=== PATIENT | male | born 1955 | race American Indian/Alaskan Native ===

== ENCOUNTER 2021-03-26 18:59 | Emergency (ER) | payer SELFPAY ==
[2021-03-26 20:33] VITALS: BP 173/97
[2021-03-26] MEDS ORDERED: ACETAMINOPHEN 500 MG TAB PO ONE (21:13)
--- NOTE | 2021-03-26 21:13 | Emergency Department Report ---
ED Fever HPI - General Chief Complaint: Fever Stated Complaint: BODY ACHES/COUGH - History of Present Illness Initial Comments: Patient presents secondary to cough and fever with trouble breathing. Symptoms started over the last couple of days and progressively worsened. He and his both been sick. She states that she seemed to get better faster. He is still sick. They are concerned that he could have coronavirus. He was vaccinated. They have no known exposure to coronavirus. Patient states that he has muscle aches and body aches. He just feels weak all over. He has not been traveling lately. Cough has been producing a yellowish phlegm. There is no hemoptysis. He has tried kedh-qqb-[id number] medication without symptomatic improvement. ED Review of Systems ROS: Stated complaint: BODY ACHES/COUGH Other details as noted in HPI Comment: All other systems reviewed and negative Constitutional: see HPI Eyes: denies: eye pain ENT: denies: ear pain Respiratory: see HPI, cough Cardiovascular: denies: chest pain Endocrine: denies: unexplained weight loss Gastrointestinal: denies: hematemesis, melena Genitourinary: denies: dysuria Musculoskeletal: denies: back pain Skin: denies: rash Neurological: denies: headache Hematological/Lymphatic: denies: easy bruising ED Past Medical Hx - Past Medical History Previous Medical History?: Yes Hx Hypertension: Yes Hx Congestive Heart Failure: Yes - Surgical History Past Surgical History?: Yes Additional Surgical History: heart cath but no stents placed. - Family History Family history: hypertension - Medications Home Medications: Home Medications Medication Instructions Recorded Confirmed Last Taken Type Albuterol Sulfate [Proventil Hfa] 6.7 gm IH 4XD #1 hfa.aer.ad 03/26/21 Unknown Rx Benzonatate [Tessalon Perles] 100 mg PO Q8HR #20 capsule 03/26/21 Unknown Rx ED Physical Exam - General Limitations: No Limitations, Other (Pulse ox is noted to be low. He is hypoxic. This improves with deep breath.) General appearance: alert, in no apparent distress - Head Head exam: Present: atraumatic, normocephalic, normal inspection - Eye Eye exam: Present: normal appearance, EOMI. Absent: scleral icterus - ENT ENT exam: Present: normal exam, normal orophraynx, mucous membranes moist - Neck Neck exam: Present: normal inspection. Absent: meningismus - Respiratory Respiratory exam: Present: wheezes (Bilateral). Absent: respiratory distress - Cardiovascular Cardiovascular Exam: Present: regular rate, normal rhythm - GI/Abdominal GI/Abdominal exam: Present: soft. Absent: tenderness, guarding - Extremities Exam Extremities exam: Present: normal capillary refill. Absent: pedal edema - Back Exam Back exam: Absent: CVA tenderness (R), CVA tenderness (L) - Neurological Exam Neurological exam: Present: alert, oriented X3. Absent: motor sensory deficit - Psychiatric Psychiatric exam: Present: normal affect, normal mood - Skin Skin exam: Present: warm, dry ED Course Vital Signs 03/26/21 20:32 Temperature 101.3 F H Pulse Rate 104 H Respiratory 14 Rate Blood Pressure 173/97 O2 Sat by Pulse 92 Oximetry - Reevaluation(s) Reevaluation #1: 03/26/21 21:13 Chest x-ray was ordered. Tylenol was ordered. Reevaluation #2: 03/26/21 21:50 X-ray was reviewed. There is no evidence of lobar pneumonia. There is no pneumothorax. Patient was discharged. ED Medical Decision Making - Radiology Data Radiology results: image reviewed - Medical Decision Making Patient presents with respiratory symptoms. This is in the setting of coronavirus. He was however vaccinated. Radiographically, there is no evidence of lobar pneumonia. He does not have a pneumothorax. There is no evidence of congestive heart failure. Patient very well could have coronavirus. This is been discussed. He would benefit from outpatient testing. There is no testing required immediately. He was feeling better after the nebulizer. Is not hypoxic. He was discharged with inhalers and outpatient follow-up. There is no indication for antibiotic therapy at this time. Critical Care Time: No Critical care attestation.: If time is entered above; I have spent that time in minutes in the direct care of this critically ill patient, excluding procedure time. ED Disposition Clinical Impression: Acute URI, Myalgia Disposition: HOME / SELF CARE / HOMELESS Is pt being admited?: No Does the pt Need Aspirin: No Condition: Stable Instructions: Viral Respiratory Infection, Zubs-Oi-Sova, Musculoskeletal Pain Additional Instructions: Drink plenty water. Continue to use Tylenol and ibuprofen for fever and pain. Return for problems. Use the inhaler at home. Follow-up with your regular physician for recheck. Isolated home. Consider outpatient Covid testing. Prescriptions: Albuterol Sulfate [Proventil Hfa] 6.7 gm IH 4XD #1 hfa.aer.ad Benzonatate [Tessalon Perles] 100 mg PO Q8HR #20 capsule Referrals: PRIMARY CARE, [Referring] - 3-5 Days DI KUHN MD [Staff Physician] - 3-5 Days
--- NOTE | 2021-03-26 22:42 | XRay Report ---
CHEST 2 VIEWS INDICATION / CLINICAL INFORMATION: wheezing. COMPARISON: None available. FINDINGS: SUPPORT DEVICES: None. HEART / MEDIASTINUM: Mild cardiomegaly. LUNGS / PLEURA: Mild bilateral interstitial opacities and peribronchial thickening. No pneumothorax. ADDITIONAL FINDINGS: No significant additional findings. IMPRESSION: 1. Bilateral peribronchial thickening and increased interstitial opacities can be seen with small air ways disease and/or viral infection. 2. Mild cardiomegaly. Signer Name: Jesus Mora MD Signed: 03/26/2021 10:37 PM Workstation Name: [id number]
[2021-03-26] MEDS ORDERED: ALBUTEROL 2.5 MG/3 ML NEBU IH ONE (23:46)
[2021-03-27] MEDS ORDERED: ACETAMINOPHEN 500 MG TAB PO ONE (00:24)
== END 2021-03-27 00:42 | disposition home or self-care (01) ==
LOC: ED 18:59
DX: J06.9 Acute upper respiratory infection, unspecified (principal); M79.10 Myalgia, unspecified site; I11.0 Hypertensive heart disease with heart failure; Z98.890 Other specified postprocedural states
CPT/HCPCS: 71046; 94640; 99283

== ENCOUNTER 2021-03-28 07:05 | Inpatient (IN) | payer MEDICARE ==
--- NOTE | 2021-03-28 07:30 | Emergency Department Report ---
Blank Doc - Documentation Documentation: 66-year-old male that presents with weakness, near syncope and shortness of br eath. Tachycardic, hypotensive and hypoxic on room air at 80%. 1- This is a initial triage assessment/medical screening only. Full assessment and work-up will be completed once the patient is in proper hospital gown, ED bed and in a private room setting. This initial assessment/diagnostic orders/clinical plan/ treatment(s) is/are subject to change based on pt's health status, clinical progression and re-assessment by fellow clinical providers in the ED. Further treatment and workup at subsequent clinical providers discretion. Patient/guardians urged not to elope from ED as their condition may be serious if not clinically assessed and managed. 2-bakery sales clerk notified to have the patient brought back JADON 3-cardiac/sepsis protocol The patient was evaluated in the emergency department for symptoms described in the history of present illness. He/she was evaluated in the context of the global COVID-19 pandemic, which necessitated consideration that the patient might be at risk for infection with the virus that causes COVID-19. Institutional protocols and algorithms that pertain to the evaluation of patients at risk for COVID-19 are in a state of rapid change based on information released by regulatory bodies including the CDC and federal and state organizations. These policies and algorithms were followed during the patient's care in the emergency department. Please note that these policies, procedures and recommendations changed on a rapid basis.
[2021-03-28 08:24] LABS: Basophils % (Auto) 0.2 % (0.0-1.8); Hematocrit 39.2 % (35.5-45.6); Hemoglobin 13.5 gm/dl (11.8-15.2); Lymphocytes # (Auto) 0.5 K/mm3 (1.2-5.4); Lymphocytes % (Auto) 7.2 % (13.4-35.0); Mean Corpuscular HGB Conc 34 % (32-34); Mean Corpuscular Volume 89 fl (84-94); Monocytes # (Auto) 0.7 K/mm3 (0.0-0.8); Monocytes % (Auto) 10.8 % (0.0-7.3); Red Cell Distribution Width 15.1 % (13.2-15.2)
[2021-03-28 08:40] LABS: Platelet Count 96 K/mm3 (140-440)
--- NOTE | 2021-03-28 08:43 | XRay Report ---
CHEST 1 VIEW INDICATION: hypoxia, sob. COMPARISON: 03/26/2021 FINDINGS: Support devices: None. Heart: Stable borderline to mild cardiomegaly Lungs/Pleura: Stable mild perihilar prominence. No consolidation, pleural effusion or pneumothorax. Additional findings: None. IMPRESSION: No significant interval change. Signer Name: Bimal Devries Jr, MD Signed: 03/28/2021 8:38 AM Workstation Name: [id number]
[2021-03-28 08:44] LABS: Alanine Aminotransferase 32 units/L (7-56); Albumin 3.4 g/dL (3.9-5); BUN/Creatinine Ratio 11; Blood Urea Nitrogen 10 mg/dL (9-20); Calcium 9.2 mg/dL (8.4-10.2); Hemolysis Index 5
[2021-03-28] MEDS ORDERED: SODIUM CHLORIDE 0.9% 1000 ML IV SOLN IV ONE (08:45)
[2021-03-28] MEDS ORDERED: AZITHROMYCIN/NS 500 MG/250 ML 500 MG/250 ML BAG IV ONE (08:46)
[2021-03-28] MEDS ORDERED: cefTRIAXone/NS 2 GM/100 ML 2 GM/100 ML BAG IV ONE (08:46)
[2021-03-28] MEDS ORDERED: dexAMETHasone 4 MG/ML VIAL IV ONE (08:47)
[2021-03-28 08:48] LABS: INR 0.95 (0.87-1.13)
[2021-03-28] MEDS ORDERED: ACETAMINOPHEN 325 MG TAB PO ONE (08:48)
[2021-03-28 08:49] LABS: Partial Thromboplastin Time 38.7 Sec. (24.2-36.6)
--- NOTE | 2021-03-28 08:50 | Emergency Department Report ---
ED Fever HPI - General Chief Complaint: Weakness Stated Complaint: COUGH WEAK THIRSTY LACK OF SLEEP FEVER Time Seen by Provider: 03/28/21 07:25 Source: patient Exam Limitations: no limitations - History of Present Illness Initial Comments: 66-year-old male with a past medical history hypertension and CHF presents to the hospital complaining of progressing worsening respiratory symptoms as well as generalized weakness and near syncopal episodes since discharge from the ED 2 days ago. He was discharged with a diagnosis of viral illness and was prescribed albuterol and Tessalon Perles. Since then patient symptoms have continued to worsen. He Continues to have a dry cough, fever, worsening shortness of breath and weakness. Decreased p.o. intake reported without nausea, vomiting, or diarrhea. Patient states he cannot sleep at night due to persistent coughing. Upon arrival patient's room air saturation 80%. Is currently satting 94% on 4 L. 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 Patient received his Pfizer Covid vaccine here with second dose in August ED Review of Systems ROS: Stated complaint: COUGH WEAK THIRSTY LACK OF SLEEP FEVER Other details as noted in HPI Comment: All other systems reviewed and negative ED Past Medical Hx - Past Medical History Hx Hypertension: Yes Hx Congestive Heart Failure: Yes - Surgical History Additional Surgical History: heart cath but no stents placed. - Social History Smoking Status: Never Smoker Substance Use Type: None - Medications Home Medications: Home Medications Medication Instructions Recorded Confirmed Last Taken Type Albuterol Sulfate [Proventil Hfa] 6.7 gm IH 4XD #1 hfa.aer.ad 03/26/21 Unknown Rx Benzonatate [Tessalon Perles] 100 mg PO Q8HR #20 capsule 03/26/21 Unknown Rx ED Physical Exam - General Limitations: No Limitations - Other Other exam information: General: No acute distress Head: Atraumatic Eyes: normal appearance Neck: Normal appearance, no midline tenderness Chest: Bilateral rhonchi CV: Regular rate and rhythm Abdomen: Soft, normal bowel sounds, nontender, nondistended, no rebound or guarding Back: Normal inspection Extremity: Normal inspection, full range of motion, no calf tenderness or leg Neuro: Alert O x 3, no facial asymmetry, speech clear, no gross motor sensory deficit Psych: Appropriate behavior Skin: No rash ED Course Vital Signs 03/28/21 03/28/21 03/28/21 07:27 07:45 07:50 Temperature 98.5 F Pulse Rate 110 H 111 H Respiratory 22 20 20 Rate Blood Pressure 99/81 [Right] O2 Sat by Pulse 80 L 91 89 Oximetry 03/28/21 08:00 Temperature 101.4 F H Pulse Rate Respiratory Rate Blood Pressure [Right] O2 Sat by Pulse Oximetry ED Medical Decision Making - Lab Data Result diagrams: 03/28/21 Unknown 03/28/21 Unknown Lab Results 03/28/21 03/28/21 03/28/21 Range/Units 08:26 09:25 09:25 WBC (4.5-11.0) K/mm3 RBC (3.65-5.03) M/mm3 Hgb (11.8-15.2) gm/dl Hct (35.5-45.6) % MCV (84-94) fl MCH (28-32) pg MCHC (32-34) % RDW (13.2-15.2) % Plt Count (140-440) K/mm3 Lymph % (Auto) (13.4-35.0) % Henderson % (Auto) (0.0-7.3) % Eos % (Auto) (0.0-4.3) % Baso % (Auto) (0.0-1.8) % Lymph # (Auto) (1.2-5.4) K/mm3 Henderson # (Auto) (0.0-0.8) K/mm3 Eos # (Auto) (0.0-0.4) K/mm3 Baso # (Auto) (0.0-0.1) K/mm3 Seg Neutrophils % (40.0-70.0) % Seg Neutrophils # (1.8-7.7) K/mm3 PT (12.2-14.9) Sec. INR (0.87-1.13) APTT (24.2-36.6) Sec. Sodium (137-145) mmol/L Potassium (3.6-5.0) mmol/L Chloride (98-107) mmol/L Carbon Dioxide (22-30) mmol/L Anion Gap mmol/L BUN (9-20) mg/dL Creatinine (0.8-1.3) mg/dL Estimated GFR ml/min BUN/Creatinine Ratio % Glucose 109 H (75-100) mg/dL Lactic Acid 1.60 (0.7-2.0) mmol/L Calcium (8.4-10.2) mg/dL Magnesium 2.40 H (1.7-2.3) mg/dL Total Bilirubin (0.1-1.2) mg/dL AST (5-40) units/L ALT (7-56) units/L Alkaline Phosphatase (35-129) units/L Lactate Dehydrogenase 677 H (91-180) units/L Troponin T (0.00-0.029) ng/mL C-Reactive Protein 13.70 H (0.00-1.30) mg/dL Total Protein (6.3-8.2) g/dL Albumin (3.9-5) g/dL Albumin/Globulin Ratio % 03/28/21 03/28/21 03/28/21 Range/Units Unknown Unknown Unknown WBC 6.4 (4.5-11.0) K/mm3 RBC 4.40 (3.65-5.03) M/mm3 Hgb 13.5 (11.8-15.2) gm/dl Hct 39.2 (35.5-45.6) % MCV 89 (84-94) fl MCH 31 (28-32) pg MCHC 34 (32-34) % RDW 15.1 (13.2-15.2) % Plt Count 96 L (140-440) K/mm3 Lymph % (Auto) 7.2 L (13.4-35.0) % Henderson % (Auto) 10.8 H (0.0-7.3) % Eos % (Auto) 0.0 (0.0-4.3) % Baso % (Auto) 0.2 (0.0-1.8) % Lymph # (Auto) 0.5 L (1.2-5.4) K/mm3 Henderson # (Auto) 0.7 (0.0-0.8) K/mm3 Eos # (Auto) 0.0 (0.0-0.4) K/mm3 Baso # (Auto) 0.0 (0.0-0.1) K/mm3 Seg Neutrophils % 81.8 H (40.0-70.0) % Seg Neutrophils # 5.2 (1.8-7.7) K/mm3 PT 13.2 (12.2-14.9) Sec. INR 0.95 (0.87-1.13) APTT 38.7 H (24.2-36.6) Sec. Sodium 137 (137-145) mmol/L Potassium 3.7 (3.6-5.0) mmol/L Chloride 100.1 (98-107) mmol/L Carbon Dioxide 26 (22-30) mmol/L Anion Gap 15 mmol/L BUN 10 (9-20) mg/dL Creatinine 0.9 (0.8-1.3) mg/dL Estimated GFR > 60 ml/min BUN/Creatinine Ratio 11 % Glucose 120 H (75-100) mg/dL Lactic Acid (0.7-2.0) mmol/L Calcium 9.2 (8.4-10.2) mg/dL Magnesium (1.7-2.3) mg/dL Total Bilirubin 0.80 (0.1-1.2) mg/dL AST 73 H (5-40) units/L ALT 32 (7-56) units/L Alkaline Phosphatase 35 (35-129) units/L Lactate Dehydrogenase (91-180) units/L Troponin T 0.013 (0.00-0.029) ng/mL C-Reactive Protein (0.00-1.30) mg/dL Total Protein 7.5 (6.3-8.2) g/dL Albumin 3.4 L (3.9-5) g/dL Albumin/Globulin Ratio 0.8 % 03/28/ Range/Units Unknown WBC (4.5-11.0) K/mm3 RBC (3.65-5.03) M/mm3 Hgb (11.8-15.2) gm/dl Hct (35.5-45.6) % MCV (84-94) fl MCH (28-32) pg MCHC (32-34) % RDW (13.2-15.2) % Plt Count (140-440) K/mm3 Lymph % (Auto) (13.4-35.0) % Henderson % (Auto) (0.0-7.3) % Eos % (Auto) (0.0-4.3) % Baso % (Auto) (0.0-1.8) % Lymph # (Auto) (1.2-5.4) K/mm3 Henderson # (Auto) (0.0-0.8) K/mm3 Eos # (Auto) (0.0-0.4) K/mm3 Baso # (Auto) (0.0-0.1) K/mm3 Seg Neutrophils % (40.0-70.0) % Seg Neutrophils # (1.8-7.7) K/mm3 PT (12.2-14.9) Sec. INR (0.87-1.13) APTT (24.2-36.6) Sec. Sodium (137-145) mmol/L Potassium (3.6-5.0) mmol/L Chloride (98-107) mmol/L Carbon Dioxide (22-30) mmol/L Anion Gap mmol/L BUN (9-20) mg/dL Creatinine (0.8-1.3) mg/dL Estimated GFR ml/min BUN/Creatinine Ratio % Glucose (75-100) mg/dL Lactic Acid 1.60 (0.7-2.0) mmol/L Calcium (8.4-10.2) mg/dL Magnesium (1.7-2.3) mg/dL Total Bilirubin (0.1-1.2) mg/dL AST (5-40) units/L ALT (7-56) units/L Alkaline Phosphatase (35-129) units/L Lactate Dehydrogenase (91-180) units/L Troponin T (0.00-0.029) ng/mL C-Reactive Protein (0.00-1.30) mg/dL Total Protein (6.3-8.2) g/dL Albumin (3.9-5) g/dL Albumin/Globulin Ratio % - EKG Data -: EKG Interpreted by Me (lvh) EKG shows normal: sinus rhythm, intervals (qtc 468), QRS complexes (qrsd 122), ST-T waves (nos brittany, latt inv) Rate: tachycardia (109) - EKG Data When compared to previous EKG there are: no significant change - Radiology Data Radiology results: report reviewed CHEST 1 VIEW INDICATION: hypoxia, sob. COMPARISON: 03/26/2021 FINDINGS: Support devices: None. Heart: Stable borderline to mild cardiomegaly Lungs/Pleura: Stable mild perihilar prominence. No consolidation, pleural effusion or pneumothorax. Additional findings: None. IMPRESSION: No significant interval change. CTA CHEST WITH IV CONTRAST INDICATION: sob, hypoxia omni 350 100 ml CONTRAST: 100 cc Omnipaque 350 IV COMPARISON: Portable chest x-ray today Three-plane MIP reconstructions were produced. All CT scans at this location are performed using CT dose reduction for ALARA by means of automated exposure control. FINDINGS: No significant axillary or chest wall lesions are seen. Visualized portions of the upper abdomen show mild fatty infiltration of the liver but no acute abnormalities. No pleural effusions are seen. No mediastinal or hilar masses are noted. A small amount of thymic tissue is seen without obvious mass effect probably is not significant. No obvious endobronchial lesions are seen. Posterior to the lower trachea at the medial pleural margin of the right upper lobe along the mediastinal surface, a small elongated collection of air is seen with a transverse width of only 9 mm which possibly could represent a minimal loculated collection of air in the pleural space but could be unusual peripheral bullous change. No generalized pneumothorax or pneumomediastinum are seen. Prominent bilateral mostly interstitial pulmonary infiltrates are seen in a patchy mosaic type pattern highly likely to represent viral pneumonitis. No discrete pulmonary masses or nodules are seen though there are a few scattered areas of denser somewhat rounded consolidation within the areas of groundglass type infiltrate. All lobes are affected, most heavily involving the lower lobes. Aorta shows no aneurysmal dilatation or evidence of dissection. Good opacification of the pulmonary arterial system was achieved. I do not see evidence of pulmonary thromboembolism. IMPRESSION: 1. No evidence of pulmonary thromboembolism 2. Extensive bilateral pneumonitis, probably viral - Medical Decision Making 66-year-old male presents to the hospital for continued infectious and respiratory symptoms of worsening hypoxia. CTA negative for pulmonary embolism but suggestive of extensive bilateral pneumonitis. Patient is immunized however, Covid test reordered as well as Covid order set. Patient requiring supplemental O2. Patient will be admitted to the hospitalist service for further treatment. Treated in the ED with Decadron, 30 mL/kg bolus of normal saline, Rocephin, and azithromycin 30 mL/kg bolus of normal saline canceled given lack of lactic acidosis and signs of severe sepsis. Patient has a history of heart failure. Critical care attestation.: If time is entered above; I have spent that time in minutes in the direct care of this critically ill patient, excluding procedure time. ED Disposition Clinical Impression: Pneumonitis, Hypoxia, Suspected COVID-19 virus infection Disposition: 09 ADMITTED INPATIENT Is pt being admited?: Yes Condition: Stable Referrals: DI KUHN MD [Primary Care Provider] - 3-5 Days Time of Disposition: 10:33 (dR SAUER/hospitalist)
--- NOTE | 2021-03-28 10:09 | Electrocardiograph Report ---
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
--- NOTE | 2021-03-28 10:11 | Cat Scan Report ---
CTA CHEST WITH IV CONTRAST INDICATION: sob, hypoxia omni 350 100 ml CONTRAST: 100 cc Omnipaque 350 IV COMPARISON: Portable chest x-ray today Three-plane MIP reconstructions were produced. All CT scans at this location are performed using CT d ose reduction for ALARA by means of automated exposure control. FINDINGS: No significant axillary or chest wall lesions are seen. Visualized portions of the upper ab domen show mild fatty infiltration of the liver but no acute abnormalities. No pleural effusions are seen. No mediastinal or hilar masses are noted. A small amount of thymic tissue is seen without obvio us mass effect probably is not significant. No obvious endobronchial lesions are seen. Posterior to t he lower trachea at the medial pleural margin of the right upper lobe along the mediastinal surface, a small elongated collection of air is seen with a transverse width of only 9 mm which possibly could represent a minimal loculated collection of air in the pleural space but could be unusual peripheral bullous change. No generalized pneumothorax or pneumomediastinum are seen. Prominent bilateral mostly interstitial pulmonary infiltrates are seen in a patchy mosaic type patter n highly likely to represent viral pneumonitis. No discrete pulmonary masses or nodules are seen thou gh there are a few scattered areas of denser somewhat rounded consolidation within the areas of groun dglass type infiltrate. All lobes are affected, most heavily involving the lower lobes. Aorta shows no aneurysmal dilatation or evidence of dissection. Good opacification of the pulmonary arterial system was achieved. I do not see evidence of pulmonary thromboembolism. IMPRESSION: 1. No evidence of pulmonary thromboembolism 2. Extensive bilateral pneumonitis, probably viral Signer Name: Chris Brewster MD Signed: 03/28/2021 10:07 AM Workstation Name: [email or web address]
[2021-03-28 10:30] LABS: C-Reactive Protein 13.7 mg/dL (0.00-1.30)
[2021-03-28] MEDS ORDERED: ACETAMINOPHEN 325 MG TAB PO PRN (12:45)
[2021-03-28] MEDS ORDERED: ONDANSETRON 4 MG/2 ML INJ IV PRN (12:45)
[2021-03-28] MEDS: dexAMETHasone 4 MG/ML VIAL IV SCH (12:59)
--- NOTE | 2021-03-28 13:03 | History and Physical Report ---
History of Present Illness Date of examination: 03/28/21 Date of admission: 03/28/2021 Chief complaint: Shortness of breath History of present illness: HPI: 58-year-old male with past medical history of hypertension, congestive heart failure, [place] 18 years ago presenting for complaint of shortness of breath of onset last Friday. Patient was seen and evaluated at our emergency department 2 days ago for similar symptoms. He was believed to have symptoms consistent with Covid 19 viral illness however was discharges patient was not requiring oxygen. He was discharged with prescriptions for Tessalon Perles and albuterol nebulizer and instructed to obtain outpatient COVID-19 testing. Patient states that over the course the last 2 days his symptoms progressively worsened. He had associated symptoms of fever, dry cough, poor p.o. intake, diarrhea and generalized weakness. Medications prescribed 2 days ago did not relieve symptoms. When patient had near syncopal event, who is a auditor in charge at our facility recommended he come back to our hospital to be evaluated and treated. On arrival patient was found to be hypoxic with saturations of 80%. This improved to 93% on my encounter, patient was on 4 L nasal cannula. Of note he does have a history of congestive heart failure. 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 Pabon from [facility]. He did not know what his ejection fraction was but did state he is currently taking Entresto and Coreg for his congestive heart failure. Moreover, patient has been vaccinated against COVID-19 receiving in both doses of the Pfizer vaccine back in . He denied any known sick contacts except for his who had similar symptoms but recovered uneventfully. She was not tested but is vaccinated against COVID-19. 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5 mg IH Q4HRT LISSETTE Budesonide (Budesonide 0.5 Mg/2 Ml Nebu) 0.5 mg IH BID LISSETTE Dexamethasone (Dexamethasone 4 Mg/Ml Vial) 8 mg IV Q24H LISSETTE Stop: 04/05/21 13:01 Last Admin: 03/28/21 12:59 Dose: Not Given Documented by: Enoxaparin Sodium (Enoxaparin 40 Mg/0.4 Ml Inj) 40 mg SUB-Q DAILY LISSETTE; Protocol Ceftriaxone Sodium (Rocephin/Ns 1 Gm/50 Ml) 1 gm in 50 mls @ 100 mls/hr IV Q24H LISSETTE; Protocol Azithromycin (Zithromax/Ns) 500 mg in 250 mls @ 250 mls/hr IV Q24H LISSETTE Ondansetron HCl (Ondansetron 4 Mg/2 Ml Inj) 4 mg IV Q8H PRN PRN Reason: Nausea And Vomiting Oxycodone/Acetaminophen (Oxycodone /Acetaminophen 5-325mg Tab) 1 tab PO Q6H PRN PRN Reason: Pain, Moderate (4-6) Sodium Chloride (Sodium Chloride 0.9% 10 Ml Flush Syringe) 10 ml IV BID LISSETTE Sodium Chloride (Sodium Chloride 0.9% 10 Ml Flush Syringe) 10 ml IV PRN PRN PRN Reason: LINE FLUSH Review of Systems All systems: negative Constitutional: fever, weakness, poor appetite Respiratory: cough, shortness of breath Gastrointestinal: diarrhea Exam - Physical Exam Narrative exam: Physical Exam: Constitutional: Alert, cooperative. No acute distress. On supplemental oxygen 4 L/min Head, Ears, Nose: Normocephalic, atraumatic. External ears, nose normal Eyes: Conjunctivae/corneas clear. No icterus. No ptosis. Neck: Supple, no meningeal signs Oral: dentition fair, no thrush Cardiovascular: S1, S2 normal. Respiratory: Good air entry, bilateral rhonchi GI: Soft, non-tender; bowel sounds normal. No peritoneal signs. Musculoskeletal: No pedal edema, no cyanosis. Skin: No rash or abscess, see nursing assessment for full skin exam Hem/Lymphatic: No palpable cervical or supraclavicular nodes. No lymphangitis Psych: Mood ok. Affect normal Neurological: Awake, alert, oriented. No gross abnormality - Constitutional Vitals: Temp Pulse Resp BP Pulse Ox 101.4 F H 111 H 20 99/81 89 03/28/21 08:00 03/28/21 07:50 03/28/21 07:50 03/28/21 07:27 03/28/21 07:50 HEART Score - HEART Score Troponin: Troponin T 0.013 ng/mL (0.00-0.029) 03/28/21 Unknown Results - Labs CBC & Chem 7: 03/28/21 Unknown 03/28/21 Unknown Labs: Laboratory Last Values WBC 6.4 K/mm3 (4.5-11.0) 03/28/21 Unknown RBC 4.40 M/mm3 (3.65-5.03) 03/28/21 Unknown Hgb 13.5 gm/dl (11.8-15.2) 03/28/21 Unknown Hct 39.2 % (35.5-45.6) 03/28/21 Unknown MCV 89 fl (84-94) 03/28/21 Unknown MCH 31 pg (28-32) 03/28/21 Unknown MCHC 34 % (32-34) 03/28/21 Unknown RDW 15.1 % (13.2-15.2) 03/28/21 Unknown Plt Count 96 K/mm3 (140-440) L 03/28/21 Unknown Lymph % (Auto) 7.2 % (13.4-35.0) L 03/28/21 Unknown [place] % (Auto) 10.8 % (0.0-7.3) H 03/28/21 Unknown Eos % (Auto) 0.0 % (0.0-4.3) 03/28/21 Unknown Baso % (Auto) 0.2 % (0.0-1.8) 03/28/21 Unknown Lymph # (Auto) 0.5 K/mm3 (1.2-5.4) L 03/28/21 Unknown [place] # (Auto) 0.7 K/mm3 (0.0-0.8) 03/28/21 Unknown Eos # (Auto) 0.0 K/mm3 (0.0-0.4) 03/28/21 Unknown Baso # (Auto) 0.0 K/mm3 (0.0-0.1) 03/28/21 Unknown Seg Neutrophils % 81.8 % (40.0-70.0) H 03/28/21 Unknown Seg Neutrophils # 5.2 K/mm3 (1.8-7.7) 03/28/21 Unknown PT 13.2 Sec. (12.2-14.9) 03/28/21 Unknown INR 0.95 (0.87-1.13) 03/28/21 Unknown APTT 38.7 Sec. (24.2-36.6) H 03/28/21 Unknown D-Dimer 1100.30 ng/mlDDU (0-234) H 03/28/21 09:25 Sodium 137 mmol/L (137-145) 03/28/21 Unknown Potassium 3.7 mmol/L (3.6-5.0) 03/28/21 Unknown Chloride 100.1 mmol/L (98-107) 03/28/21 Unknown Carbon Dioxide 26 mmol/L (22-30) 03/28/21 Unknown Anion Gap 15 mmol/L 03/28/21 Unknown BUN 10 mg/dL (9-20) 03/28/21 Unknown Creatinine 0.9 mg/dL (0.8-1.3) 03/28/21 Unknown Estimated GFR > 60 ml/min 03/28/21 Unknown BUN/Creatinine Ratio 11 % 03/28/21 Unknown Glucose 120 mg/dL (75-100) H 03/28/21 Unknown Lactic Acid 1.60 mmol/L (0.7-2.0) 03/28/21 Unknown Calcium 9.2 mg/dL (8.4-10.2) 03/28/21 Unknown Magnesium 2.40 mg/dL (1.7-2.3) H 03/28/21 08:26 Ferritin 1340.0 ng/mL (30.0-300.0) H 03/28/21 09:25 Total Bilirubin 0.80 mg/dL (0.1-1.2) 03/28/21 Unknown AST 73 units/L (5-40) H 03/28/21 Unknown ALT 32 units/L (7-56) 03/28/21 Unknown Alkaline Phosphatase 35 units/L (35-129) 03/28/21 Unknown Lactate Dehydrogenase 677 units/L (91-180) H 03/28/21 09:25 Troponin T 0.013 ng/mL (0.00-0.029) 03/28/21 Unknown C-Reactive Protein 13.70 mg/dL (0.00-1.30) H 03/28/21 09:25 Total Protein 7.5 g/dL (6.3-8.2) 03/28/21 Unknown Albumin 3.4 g/dL (3.9-5) L 03/28/21 Unknown Albumin/Globulin Ratio 0.8 % 03/28/21 Unknown Microbiology: Microbiology 03/28/21 08:26 Peripheral/Venous Blood Culture - Preliminary Culture in Progress 03/28/21 08:26 Peripheral/Venous Blood Culture - Preliminary Culture in Progress Assessment and Plan Assessment and plan: 1. Acute hypoxic respiratory failure -Symptoms of shortness of breath, dry cough, fever, decreased appetite. High suspicion for Covid PNA. -Febrile 101.4 F, elevated inflammatory markers on admission -CTA chest: Negative for PE, findings consistent with bilateral viral pneumonia. Please refer to official radiology report ED course: Azithromycin IV, Rocephin IV, Decadron IV, albuterol nebulizer -Supplemental oxygen via nasal cannula, de-escalate as patient tolerates Covid therapies as below Albuterol and budesonide inhalers ordered 2. Suspected COVID-19 infection -Patient was vaccinated. Received both doses of Pfizer vaccine back in July had similar symptoms however she recovered uneventfully Empiric antibiotic coverage with azithromycin IV, Rocephin IV. Procalcitonin ordered, will follow -Decadron 8 mg IV daily x10 days total therapy -DVT prophylaxis dosing Lovenox May be a candidate for Remdesivir however transaminitis noted. Will defer to ID. May be a candidate for Actemra , elevated CRP Infectious disease consulted 3. Sepsis Suspect viral pneumonia as source, temp 101.4F, tachycardic 111 bpm Blood cultures ordered in emergency department 4. Transaminitis -Elevated AST to 73. Likely due to underlying Covid viral illness May be a candidate for remdesivir as it is not greater than 4 times upper limit of normal 5. History of congestive heart failure -Resume home medication 6. Essential hypertension -Resume home medication
--- NOTE | 2021-03-28 13:03 | Progress Note ---
Assessment and Plan Assessment and plan: 1. Acute hypoxic respiratory failure -Symptoms of shortness of breath, dry cough, fever, decreased appetite. High suspicion for Covid PNA. -Febrile 101.4 F, elevated inflammatory markers on admission -CTA chest: Negative for PE, findings consistent with bilateral viral pneumonia. Please refer to official radiology report ED course: Azithromycin IV, Rocephin IV, Decadron IV, albuterol nebulizer -Supplemental oxygen via nasal cannula, de-escalate as patient tolerates Covid therapies as below Albuterol and budesonide inhalers ordered 2. Suspected COVID-19 infection -Patient was vaccinated. Received both doses of [employer] vaccine back in had similar symptoms however she recovered uneventfully Empiric antibiotic coverage with azithromycin IV, Rocephin IV. Procalcitonin ordered, will follow -Decadron 8 mg IV daily x10 days total therapy May be a candidate for remdesivir however transaminitis noted. Will defer to ID. May be a candidate for Actemra , elevated CRP Infectious disease consulted 3. Sepsis Suspect viral pneumonia as source, temp 101.4F, tachycardic 111 bpm Blood cultures ordered in emergency department 4. Essential hypertension 5. History of congestive heart failure 6. History of arthritis 7. Transaminitis Hospitalist Physical - Physical exam Narrative exam: Physical Exam: Constitutional: Alert, cooperative. No acute distress. On supplemental oxygen 4 L/min Head, Ears, Nose: Normocephalic, atraumatic. External ears, nose normal Eyes: Conjunctivae/corneas clear. No icterus. No ptosis. Neck: Supple, no meningeal signs Oral: dentition fair, no thrush Cardiovascular: S1, S2 normal. Respiratory: Good air entry, bilateral rhonchi GI: Soft, non-tender; bowel sounds normal. No peritoneal signs. Musculoskeletal: No pedal edema, no cyanosis. Skin: No rash or abscess, see nursing assessment for full skin exam Hem/Lymphatic: No palpable cervical or supraclavicular nodes. No lymphangitis Psych: Mood ok. Affect normal Neurological: Awake, alert, oriented. No gross abnormality - Constitutional Vitals: Temp Pulse Resp BP Pulse Ox 101.4 F H 111 H 20 99/81 89 03/28/21 08:00 03/28/21 07:50 03/28/21 07:50 03/28/21 07:27 03/28/21 07:50 HEART Score - HEART Score Troponin: Troponin T 0.013 ng/mL (0.00-0.029) 03/28/21 Unknown Results - Labs CBC & Chem 7: 03/28/21 Unknown 03/28/21 Unknown Labs: Laboratory Last Values WBC 6.4 K/mm3 (4.5-11.0) 03/28/21 Unknown RBC 4.40 M/mm3 (3.65-5.03) 03/28/21 Unknown Hgb 13.5 gm/dl (11.8-15.2) 03/28/21 Unknown Hct 39.2 % (35.5-45.6) 03/28/21 Unknown MCV 89 fl (84-94) 03/28/21 Unknown MCH 31 pg (28-32) 03/28/21 Unknown MCHC 34 % (32-34) 03/28/21 Unknown RDW 15.1 % (13.2-15.2) 03/28/21 Unknown Plt Count 96 K/mm3 (140-440) L 03/28/21 Unknown Lymph % (Auto) 7.2 % (13.4-35.0) L 03/28/21 Unknown [place] % (Auto) 10.8 % (0.0-7.3) H 03/28/21 Unknown Eos % (Auto) 0.0 % (0.0-4.3) 03/28/21 Unknown Baso % (Auto) 0.2 % (0.0-1.8) 03/28/21 Unknown Lymph # (Auto) 0.5 K/mm3 (1.2-5.4) L 03/28/21 Unknown [place] # (Auto) 0.7 K/mm3 (0.0-0.8) 03/28/21 Unknown Eos # (Auto) 0.0 K/mm3 (0.0-0.4) 03/28/21 Unknown Baso # (Auto) 0.0 K/mm3 (0.0-0.1) 03/28/21 Unknown Seg Neutrophils % 81.8 % (40.0-70.0) H 03/28/21 Unknown Seg Neutrophils # 5.2 K/mm3 (1.8-7.7) 03/28/21 Unknown PT 13.2 Sec. (12.2-14.9) 03/28/21 Unknown INR 0.95 (0.87-1.13) 03/28/21 Unknown APTT 38.7 Sec. (24.2-36.6) H 03/28/21 Unknown D-Dimer 1100.30 ng/mlDDU (0-234) H 03/28/21 09:25 Sodium 137 mmol/L (137-145) 03/28/21 Unknown Potassium 3.7 mmol/L (3.6-5.0) 03/28/21 Unknown Chloride 100.1 mmol/L (98-107) 03/28/21 Unknown Carbon Dioxide 26 mmol/L (22-30) 03/28/21 Unknown Anion Gap 15 mmol/L 03/28/21 Unknown BUN 10 mg/dL (9-20) 03/28/21 Unknown Creatinine 0.9 mg/dL (0.8-1.3) 03/28/21 Unknown Estimated GFR > 60 ml/min 03/28/21 Unknown BUN/Creatinine Ratio 11 % 03/28/21 Unknown Glucose 120 mg/dL (75-100) H 03/28/21 Unknown Lactic Acid 1.60 mmol/L (0.7-2.0) 03/28/21 Unknown Calcium 9.2 mg/dL (8.4-10.2) 03/28/21 Unknown Magnesium 2.40 mg/dL (1.7-2.3) H 03/28/21 08:26 Ferritin 1340.0 ng/mL (30.0-300.0) H 03/28/21 09:25 Total Bilirubin 0.80 mg/dL (0.1-1.2) 03/28/21 Unknown AST 73 units/L (5-40) H 03/28/21 Unknown ALT 32 units/L (7-56) 03/28/21 Unknown Alkaline Phosphatase 35 units/L (35-129) 03/28/21 Unknown Lactate Dehydrogenase 677 units/L (91-180) H 03/28/21 09:25 Troponin T 0.013 ng/mL (0.00-0.029) 03/28/21 Unknown C-Reactive Protein 13.70 mg/dL (0.00-1.30) H 03/28/21 09:25 Total Protein 7.5 g/dL (6.3-8.2) 03/28/21 Unknown Albumin 3.4 g/dL (3.9-5) L 03/28/21 Unknown Albumin/Globulin Ratio 0.8 % 03/28/21 Unknown Microbiology: Microbiology 03/28/21 08:26 Peripheral/Venous Blood Culture - Preliminary Culture in Progress 03/28/21 08:26 Peripheral/Venous Blood Culture - Preliminary Culture in Progress Active Medications - Current Medications Current Medications: Generic Name Dose Route Start Last Admin Trade Name Freq PRN Reason Stop Dose Admin Acetaminophen 650 mg 03/28/21 12:45 Acetaminophen 325 Mg Tab PO Q4H PRN Pain MILD(1-3)/Fever >100.5/MIRANDA Albuterol 2.5 mg 03/28/21 14:00 Albuterol 2.5 Mg/3 Ml Nebu IH Q4HR LISSETTE Budesonide 0.5 mg 03/28/21 13:00 Budesonide 0.5 Mg/2 Ml Nebu IH BID LISSETTE Dexamethasone 8 mg 03/28/21 13:00 Dexamethasone 4 Mg/Ml Vial IV 04/05/21 13:01 Q24H LISSETTE Enoxaparin Sodium 40 mg 03/28/21 13:00 Enoxaparin 40 Mg/0.4 Ml Inj SUB-Q DAILY LISSETTE Protocol Ceftriaxone Sodium 1 gm in 50 mls @ 100 mls/hr 03/28/21 13:00 Rocephin/Ns 1 Gm/50 Ml IV Q24H LISSETTE Protocol Azithromycin 500 mg in 250 mls @ 250 mls/hr 03/28/21 13:00 Zithromax/Ns IV Q24H LISSETTE Ondansetron HCl 4 mg 03/28/21 12:45 Ondansetron 4 Mg/2 Ml Inj IV Q8H PRN Nausea And Vomiting Oxycodone/Acetaminophen 1 tab 03/28/21 12:45 Oxycodone /Acetaminophen 5-325mg Tab PO Q6H PRN Pain, Moderate (4-6) Sodium Chloride 10 ml 03/28/21 22:00 Sodium Chloride 0.9% 10 Ml Flush Syringe IV BID LISSETTE Sodium Chloride 10 ml 03/28/21 12:45 Sodium Chloride 0.9% 10 Ml Flush Syringe IV PRN PRN LINE FLUSH
[2021-03-28] MEDS: ENOXAPARIN 40 MG/0.4 ML INJ SUB-Q SCH (18:14)
[2021-03-28 20:01] LABS: Bilirubin,Urine NEG (Negative); Blood,Urine MOD (Negative); Color,Urine Amber (Yellow); Mucus,Urine FEW /HPF
[2021-03-28 20:02] LABS: Protein,Urine >500 mg/dL (Negative)
[2021-03-28] MEDS: ALBUTEROL 2.5 MG/3 ML NEBU IH SCH ×3 (22:48→23:05)
[2021-03-28] MEDS: BUDESONIDE 0.5 MG/2 ML NEBU IH SCH ×2 (22:49→23:06)
[2021-03-29 03:01] LABS: Basophils % (Auto) 0.2 % (0.0-1.8); Hematocrit 39.3 % (35.5-45.6); Hemoglobin 13.4 gm/dl (11.8-15.2); Lymphocytes # (Auto) 0.4 K/mm3 (1.2-5.4); Lymphocytes % (Auto) 5.6 % (13.4-35.0); Mean Corpuscular HGB Conc 34 % (32-34); Mean Corpuscular Volume 90 fl (84-94); Monocytes # (Auto) 0.6 K/mm3 (0.0-0.8); Platelet Count 107 K/mm3 (140-440); Red Blood Count 4.36 M/mm3 (3.65-5.03); Red Cell Distribution Width 15.4 % (13.2-15.2)
[2021-03-29 03:08] LABS: Alanine Aminotransferase 34 units/L (7-56); Albumin 3.1 g/dL (3.9-5); BUN/Creatinine Ratio 13; Blood Urea Nitrogen 13 mg/dL (9-20); Calcium 8.9 mg/dL (8.4-10.2); Hemolysis Index 3
[2021-03-29] MEDS: ALBUTEROL 2.5 MG/3 ML NEBU IH SCH ×4 (03:19→21:29)
[2021-03-29] MEDS: BENZONATATE 100 MG CAP PO SCH ×3 (07:00→22:30)
--- NOTE | 2021-03-29 08:22 | Progress Note ---
Assessment and Plan Assessment and plan: 58-year-old male with past medical history of hypertension, congestive heart failure, [place] 18 years ago presenting for complaint of shortness of breath of onset last Friday. Patient states that over the course the last 2 days his symptoms progressively worsened. He had associated symptoms of fever, dry cough, poor p.o. intake, diarrhea and generalized weakness. Ongoing evaluation and treatment for covid pneumonia Hospital Course: 03/29/2021: Cardiology evaluated patient due to 5 beats NSVT. Increased coreg, continue entresto. Patient follows with Dr Martinez. ID evaluated patient, Remdesivir started. Will continue supportive care. Assessment and Plan: 1. Acute hypoxic respiratory failure -Symptoms of shortness of breath, dry cough, fever, decreased appetite. High suspicion for Covid PNA. -Febrile 101.4 F, elevated inflammatory markers on admission -CTA chest: Negative for PE, findings consistent with bilateral viral pneumonia. Please refer to official radiology report ED course: Azithromycin IV, Rocephin IV, Decadron IV, albuterol nebulizer -Supplemental oxygen via nasal cannula, de-escalate as patient tolerates Covid therapies as below Albuterol and budesonide inhalers ordered 2. Suspected COVID-19 infection -Patient was vaccinated. Received both doses of Pfizer vaccine back in had similar symptoms however she recovered uneventfully Empiric antibiotic coverage with azithromycin IV, Rocephin IV. Procalcitonin ordered, will follow -Decadron 8 mg IV daily x10 days total therapy -DVT prophylaxis dosing Lovenox May be a candidate for Remdesivir however transaminitis noted. Will defer to ID. May be a candidate for Actemra , elevated CRP Infectious disease consulted 3. Sepsis Suspect viral pneumonia as source, temp 101.4F, tachycardic 111 bpm Blood cultures ordered in emergency department 4. Transaminitis -Elevated AST to 73. Likely due to underlying Covid viral illness May be a candidate for remdesivir as it is not greater than 4 times upper limit of normal 5. Chronic congestive heart failure -Resume home coreg, entresto -coreg increased by cardiology 6. Essential hypertension -Resume home coreg, entresto 7. Hyperlipidemia - resume home simvastatin 8. History of Rheumatoid Arthritis - resume home leflunamide 9. Peripheral neuropathy - resume home gabapentin History Interval history: resting comfortably. States that his symptoms have improved. Hospitalist Physical - Physical exam Narrative exam: Physical Exam: Constitutional: Alert, cooperative. No acute distress. On supplemental oxygen 4 L/min Head, Ears, Nose: Normocephalic, atraumatic. External ears, nose normal Eyes: Conjunctivae/corneas clear. No icterus. No ptosis. Neck: Supple, no meningeal signs Oral: dentition fair, no thrush Cardiovascular: S1, S2 normal. Respiratory: Good air entry, bilateral rhonchi GI: Soft, non-tender; bowel sounds normal. No peritoneal signs. Musculoskeletal: No pedal edema, no cyanosis. Skin: No rash or abscess, see nursing assessment for full skin exam Hem/Lymphatic: No palpable cervical or supraclavicular nodes. No lymphangitis Psych: Mood ok. Affect normal Neurological: Awake, alert, oriented. No gross abnormality - Constitutional Vitals: Temp Pulse Resp BP Pulse Ox 99.0 F 102 H 20 147/102 92 03/29/21 05:59 03/29/21 05:59 03/29/21 05:59 03/29/21 05:59 03/29/21 05:59 HEART Score - HEART Score Troponin: Troponin T 0.013 ng/mL (0.00-0.029) 03/28/21 Unknown Results - Labs CBC & Chem 7: 03/29/21 02:30 03/29/21 15:30 Labs: Laboratory Last Values WBC 6.4 K/mm3 (4.5-11.0) 03/29/21 02:30 RBC 4.36 M/mm3 (3.65-5.03) 03/29/21 02:30 Hgb 13.4 gm/dl (11.8-15.2) 03/29/21 02:30 Hct 39.3 % (35.5-45.6) 03/29/21 02:30 MCV 90 fl (84-94) 03/29/21 02:30 MCH 31 pg (28-32) 03/29/21 02:30 MCHC 34 % (32-34) 03/29/21 02:30 RDW 15.4 % (13.2-15.2) H 03/29/21 02:30 Plt Count 107 K/mm3 (140-440) L 03/29/21 02:30 Lymph % (Auto) 5.6 % (13.4-35.0) L 03/29/21 02:30 [place] % (Auto) 10.0 % (0.0-7.3) H 03/29/21 02:30 Eos % (Auto) 0.0 % (0.0-4.3) 03/29/21 02:30 Baso % (Auto) 0.2 % (0.0-1.8) 03/29/21 02:30 Lymph # (Auto) 0.4 K/mm3 (1.2-5.4) L 03/29/21 02:30 [place] # (Auto) 0.6 K/mm3 (0.0-0.8) 03/29/21 02:30 Eos # (Auto) 0.0 K/mm3 (0.0-0.4) 03/29/21 02:30 Baso # (Auto) 0.0 K/mm3 (0.0-0.1) 03/29/21 02:30 Seg Neutrophils % 84.2 % (40.0-70.0) H 03/29/21 02:30 Seg Neutrophils # 5.4 K/mm3 (1.8-7.7) 03/29/21 02:30 PT 13.2 Sec. (12.2-14.9) 03/28/21 Unknown INR 0.95 (0.87-1.13) 03/28/21 Unknown APTT 38.7 Sec. (24.2-36.6) H 03/28/21 Unknown D-Dimer 1100.30 ng/mlDDU (0-234) H 03/28/21 09:25 Sodium 138 mmol/L (137-145) 03/29/21 02:30 Potassium 4.1 mmol/L (3.6-5.0) 03/29/21 02:30 Potassium 4.3 mmol/L (3.6-5.0) 03/29/21 02:30 Chloride 102.6 mmol/L (98-107) 03/29/21 02:30 Carbon Dioxide 27 mmol/L (22-30) 03/29/21 02:30 Anion Gap 13 mmol/L 03/29/21 02:30 BUN 13 mg/dL (9-20) 03/29/21 02:30 Creatinine 1.0 mg/dL (0.8-1.3) 03/29/21 02:30 Estimated GFR > 60 ml/min 03/29/21 02:30 BUN/Creatinine Ratio 13 % 03/29/21 02:30 Glucose 128 mg/dL (75-100) H 03/29/21 02:30 Lactic Acid 1.60 mmol/L (0.7-2.0) 03/28/21 Unknown Calcium 8.9 mg/dL (8.4-10.2) 03/29/21 02:30 Magnesium 2.60 mg/dL (1.7-2.3) H 03/29/21 02:30 Ferritin 1340.0 ng/mL (30.0-300.0) H 03/28/21 09:25 Total Bilirubin 0.50 mg/dL (0.1-1.2) 03/29/21 02:30 AST 64 units/L (5-40) H 03/29/21 02:30 ALT 34 units/L (7-56) 03/29/21 02:30 Alkaline Phosphatase 37 units/L (35-129) 03/29/21 02:30 Lactate Dehydrogenase 677 units/L (91-180) H 03/28/21 09:25 Troponin T 0.013 ng/mL (0.00-0.029) 03/28/21 Unknown C-Reactive Protein 13.70 mg/dL (0.00-1.30) H 03/28/21 09:25 Total Protein 7.2 g/dL (6.3-8.2) 03/29/21 02:30 Albumin 3.1 g/dL (3.9-5) L 03/29/21 02:30 Albumin/Globulin Ratio 0.8 % 03/29/21 02:30 Procalcitonin 0.37 ng/mL (<0.15) 03/28/21 09:25 Urine Color [place] (Yellow) 03/28/21 Unknown Urine Turbidity Clear (Clear) 03/28/21 Unknown Urine pH 5.0 (5.0-7.0) 03/28/21 Unknown Ur Specific [place] 1.038 (1.003-1.030) H 03/28/21 Unknown Urine Protein >500 mg/dL (Negative) 03/28/21 Unknown Urine Glucose (UA) 50 mg/dL (Negative) 03/28/21 Unknown Urine Ketones Tr mg/dL (Negative) 03/28/21 Unknown Urine Blood Mod (Negative) 03/28/21 Unknown Urine Nitrite Neg (Negative) 03/28/21 Unknown Urine Bilirubin Neg (Negative) 03/28/21 Unknown Urine Urobilinogen 2.0 mg/dL (<2.0) 03/28/21 Unknown Ur Leukocyte Esterase Neg (Negative) 03/28/21 Unknown Urine WBC (Auto) 6.0 /HPF (0.0-6.0) 03/28/21 Unknown Urine RBC (Auto) 2.0 /HPF (0.0-6.0) 03/28/21 Unknown U Epithel Cells (Auto) < 1.0 /HPF (0-13.0) 03/28/21 Unknown Urine Mucus Few /HPF 03/28/21 Unknown Coronavirus (PCR) Positive (Negative) A 03/28/21 Unknown Microbiology: Microbiology 03/28/21 08:26 Peripheral/Venous Blood Culture - Preliminary Culture in Progress 03/28/21 08:26 Peripheral/Venous Blood Culture - Preliminary Culture in Progress [place]/IV: Voiding Method Urinal Active Medications - Current Medications Current Medications: Generic Name Dose Route Start Last Admin Trade Name Freq PRN Reason Stop Dose Admin Acetaminophen 650 mg 03/28/21 12:45 Acetaminophen 325 Mg Tab PO Q4H PRN Pain MILD(1-3)/Fever >100.5/MIRANDA Albuterol 2.5 mg 03/29/21 08:00 Albuterol 2.5 Mg/3 Ml Nebu IH TIDRT LISSETTE Benzonatate 100 mg 03/29/21 07:00 Benzonatate 100 Mg Cap PO Q8HR LISSETTE Budesonide 0.5 mg 03/28/21 14:00 03/28/21 23:06 Budesonide 0.5 Mg/2 Ml Nebu IH 0.5 mg BID LISSETTE Administration Carvedilol 12.5 mg 03/29/21 10:00 Carvedilol 12.5 Mg Tab PO BID LISSETTE Dexamethasone 8 mg 03/28/21 13:00 03/28/21 12:59 Dexamethasone 4 Mg/Ml Vial IV 04/05/21 13:01 Not Given Q24H LISSETTE Enoxaparin Sodium 40 mg 03/28/21 14:00 03/28/21 18:14 Enoxaparin 40 Mg/0.4 Ml Inj SUB-Q 40 mg DAILY LISSETTE Administration Protocol Ceftriaxone Sodium 1 gm in 50 mls @ 100 mls/hr 03/29/21 10:00 Rocephin/Ns 1 Gm/50 Ml IV Q24H LISSETTE Protocol Azithromycin 500 mg in 250 mls @ 250 mls/hr 03/29/21 10:00 Zithromax/Ns IV Q24H LISSETTE Labetalol HCl 10 mg 03/28/21 15:34 Labetalol 20 Mg/4 Ml Inj IV Q6HR PRN sbp > 160, hold for hr < 70 Ondansetron HCl 4 mg 03/28/21 12:45 Ondansetron 4 Mg/2 Ml Inj IV Q8H PRN Nausea And Vomiting Oxycodone/Acetaminophen 1 tab 03/28/21 12:45 Oxycodone /Acetaminophen 5-325mg Tab PO Q6H PRN Pain, Moderate (4-6) Sodium Chloride 10 ml 03/28/21 22:00 03/28/21 22:00 Sodium Chloride 0.9% 10 Ml Flush Syringe IV 10 ml BID LISSETTE Administration Sodium Chloride 10 ml 03/28/21 12:45 Sodium Chloride 0.9% 10 Ml Flush Syringe IV PRN PRN LINE FLUSH
[2021-03-29] MEDS: SACUBITRIL/VALSARTAN 49-51 MG TAB PO SCH ×2 (09:26→10:47)
[2021-03-29] MEDS: carvediloL 25 MG TAB PO SCH ×2 (09:26→22:40)
[2021-03-29] MEDS: cefTRIAXone/NS 1 GM/50 ML 1 GM/50 ML BAG IV SCH (09:27)
[2021-03-29] MEDS: ENOXAPARIN 40 MG/0.4 ML INJ SUB-Q SCH (09:27)
[2021-03-29] MEDS: ASPIRIN 81 MG TAB CHEW PO SCH (09:28)
[2021-03-29] MEDS ORDERED: SACUBITRIL/VALSARTAN 49-51 MG TAB PO SCH (10:00)
[2021-03-29] MEDS ORDERED: NON-FORMULARY EACH (Gabapentin 300 MG) PO SCH (10:00)
[2021-03-29] MEDS ORDERED: ENTRESTO PO SCH (10:00)
[2021-03-29] MEDS ORDERED: carvediloL 12.5 MG TAB PO SCH ×2 (10:00)
[2021-03-29] MEDS ORDERED: LEFLUNOMIDE 20 MG PO SCH (10:00)
[2021-03-29] MEDS ORDERED: COREG 12.5 MG PO SCH (10:00)
[2021-03-29] MEDS: AZITHROMYCIN/NS 500 MG/250 ML 500 MG/250 ML BAG IV SCH (10:45)
[2021-03-29] MEDS: BUDESONIDE 0.5 MG/2 ML NEBU IH SCH ×2 (11:07→21:30)
--- NOTE | 2021-03-29 14:16 | Consultation ---
History of Present Illness - Reason for Consult Consult date: 03/29/21 COVID_19 Requesting physician: CUCA SAUER - History of Present Illness The patient is a 58-year-old male with hypertension, CHF, CAD admitted with cough, fever, shortness of breath, generalized weakness along with some loose stools. Patient tested positive for COVID-19, is hypoxic requiring oxygen by nasal cannula. Patient is vaccinated against COVID-19 with the Pfizer vaccine. Infectious diseases was consulted for additional evaluation. T-max of 101.4 F on admission, no fever since then, hypoxia is borderline, requiring oxygen by nasal cannula. WBC normal, D-dimer 1100, AST 64, ferritin 1340, CRP 13.7, procalcitonin 0.37. Review of Systems: reviewed in the chart, unable to obtain, minimize risk of transmission Medications and Allergies Allergies Allergy/AdvReac Type Severity Reaction Status Date / Time No Known Allergies Allergy Verified 03/28/21 07:20 Home Medications Medication Instructions Recorded Confirmed Last Taken Type Albuterol Sulfate [Proventil Hfa] 6.7 gm IH 4XD #1 hfa.aer.ad 03/26/21 03/28/21 Unknown Rx Benzonatate [Tessalon Perles] 100 mg PO Q8HR #20 capsule 03/26/21 03/28/21 Unknown Rx Coreg 12.5 mg PO BID 03/28/21 03/28/21 Unknown History Entresto 97 mg-103 mg Tablet 1 tab PO BID 03/28/21 03/28/21 Unknown History Gabapentin 300 mg PO DAILY 03/28/21 03/28/21 Unknown History Leflunomide 20 mg PO DAILY 03/28/21 03/28/21 Unknown History Simvastatin 20 mg PO HS 03/28/21 03/28/21 Unknown History Active Meds: Active Medications Acetaminophen (Acetaminophen 325 Mg Tab) 650 mg PO Q4H PRN PRN Reason: Pain MILD(1-3)/Fever >100.5/MIRANDA Albuterol (Albuterol 2.5 Mg/3 Ml Nebu) 2.5 mg IH TIDRT [facility] Last Admin: 03/29/21 11:07 Dose: Not Given Documented by: Aspirin (Aspirin 81 Mg Tab Chew) 81 mg PO QDAY [facility] Last Admin: 03/29/21 09:28 Dose: 81 mg Documented by: Benzonatate (Benzonatate 100 Mg Cap) 100 mg PO Q8HR [facility] Last Admin: 03/29/21 07:00 Dose: 100 mg Documented by: Budesonide (Budesonide 0.5 Mg/2 Ml Nebu) 0.5 mg IH BID [facility] Last Admin: 03/29/21 11:07 Dose: Not Given Documented by: Carvedilol (Carvedilol 25 Mg Tab) 25 mg PO Q12HR [facility] Last Admin: 03/29/21 09:26 Dose: Not Given Documented by: Dexamethasone (Dexamethasone 4 Mg/Ml Vial) 8 mg IV Q24H [facility] Stop: 04/05/21 13:01 Last Admin: 03/28/21 12:59 Dose: Not Given Documented by: Enoxaparin Sodium (Enoxaparin 40 Mg/0.4 Ml Inj) 40 mg SUB-Q DAILY [facility]; Protocol Last Admin: 03/29/21 09:27 Dose: 40 mg Documented by: Gabapentin (Gabapentin 300 Mg Cap) 300 mg PO QPM [facility] Ceftriaxone Sodium (Rocephin/Ns 1 Gm/50 Ml) 1 gm in 50 mls @ 100 mls/hr IV Q24H [facility]; Protocol Last Admin: 03/29/21 09:27 Dose: 100 mls/hr Documented by: Azithromycin (Zithromax/Ns) 500 mg in 250 mls @ 250 mls/hr IV Q24H [facility] Last Admin: 03/29/21 10:45 Dose: 250 mls/hr Documented by: Labetalol HCl (Labetalol 20 Mg/4 Ml Inj) 10 mg IV Q6HR PRN PRN Reason: sbp > 160, hold for hr < 70 Miscellaneous Medication (Leflunomide) 20 mg PO DAILY [facility] Ondansetron HCl (Ondansetron 4 Mg/2 Ml Inj) 4 mg IV Q8H PRN PRN Reason: Nausea And Vomiting Oxycodone/Acetaminophen (Oxycodone /Acetaminophen 5-325mg Tab) 1 tab PO Q6H PRN PRN Reason: Pain, Moderate (4-6) Pravastatin Sodium (Pravastatin 40 Mg Tab) 40 mg PO QHS [facility] Sodium Chloride (Sodium Chloride 0.9% 10 Ml Flush Syringe) 10 ml IV BID [facility] Last Admin: 03/29/21 09:28 Dose: 10 ml Documented by: Sodium Chloride (Sodium Chloride 0.9% 10 Ml Flush Syringe) 10 ml IV PRN PRN PRN Reason: LINE FLUSH Physical Examination - Physical Exam Narrative exam: Physical Exam (reviewed in chart to minimize risk of transmission) Constitutional: deferred Head, Ears, Nose: deferred Eyes: deferred Neck: deferred Oral: deferred Cardiovascular: deferred Respiratory: deferred GI: deferred Musculoskeletal: deferred Skin: deferred Hem/Lymphatic: deferred Psych: deferred Neurological: deferred - Constitutional Vitals: Vital Signs Temp Pulse Resp BP Pulse Ox 99.0 F 102 H 20 147/102 91 03/29/21 05:59 03/29/21 05:59 03/29/21 05:59 03/29/21 05:59 03/29/21 11:30 Temperature -Last 24 Hours Temperature 99.0 F Temperature 98.6 F Temperature 98.5 F Temperature 98.1 F Results - Labs CBC & Chem 7: 03/29/21 02:30 03/29/21 02:30 Labs: Abnormal lab results 03/28/21 03/28/21 03/29/21 Range/Units Unknown Unknown 02:30 RDW 15.4 H (13.2-15.2) % Plt Count 107 L (140-440) K/mm3 Lymph % (Auto) 5.6 L (13.4-35.0) % [place] % (Auto) 10.0 H (0.0-7.3) % Lymph # (Auto) 0.4 L (1.2-5.4) K/mm3 Seg Neutrophils % 84.2 H (40.0-70.0) % Glucose (75-100) mg/dL Magnesium (1.7-2.3) mg/dL AST (5-40) units/L Albumin (3.9-5) g/dL Ur Specific [place] 1.038 H (1.003-1.030) Coronavirus (PCR) Positive A (Negative) 03/29/21 03/29/21 Range/Units 02:30 02:30 RDW (13.2-15.2) % Plt Count (140-440) K/mm3 Lymph % (Auto) (13.4-35.0) % [place] % (Auto) (0.0-7.3) % Lymph # (Auto) (1.2-5.4) K/mm3 Seg Neutrophils % (40.0-70.0) % Glucose 128 H (75-100) mg/dL Magnesium 2.60 H (1.7-2.3) mg/dL AST 64 H (5-40) units/L Albumin 3.1 L (3.9-5) g/dL Ur Specific [place] (1.003-1.030) Coronavirus (PCR) (Negative) - Imaging and Cardiology CT scan - chest: report reviewed, image reviewed (b/l multifocal pna) Assessment and Plan Cultures: SARS CoV2 PCR: Positive 03/28/2021 blood culture: No growth A/P: 58-year-old male with hypertension, CHF, CAD admitted with cough, fever, shortness of breath, generalized weakness along with some loose stools: #Bilateral pneumonia: Secondary to COVID-19. Breakthrough infection. Vaccinated against COVID-19 with Pfizer back in Jul/Aug 2020. CTA negative for pulmonary thromboembolism, showed bilateral extensive pneumonitis. Elevated markers. #Acute hypoxic respiratory failure: Requiring nasal cannula. #Transaminitis: Likely secondary to COVID-19. #Thrombocytopenia Recs: IV/PO Dexamethasone x 10 days IV remdesivir x 5 days ordered prophylactic anticoagulation based on d-dimer per hospital protocol continue empiric abx due to mildly elevated procalcitonin trend ferritin, d-dimer, CRP every 2-3 days Tanya Hazel MD, FACP [facility] ([facility]) O: [phone] F: [phone]
--- NOTE | 2021-03-29 14:40 | Consultation ---
History of Present Illness Consult date: 03/29/21 Requesting physician: CUCA SAUER Consult reason: arrhythmia History of present illness: Patient is a 58 y/o male with a PMHx of HrEF (30-35%), CAD s/p PCI, ischemic cardiomyopathy, HTN who reported to the ED yesterday with a complaint of SOB x 1 week. The patient reports that last week he developed a cough and that over the next several days he developed flu like symptoms including fevers, SOB, nausea, malaise, and diarrhea. He reports that he came to the ED on Friday but was discharged home. He returned yesterday after nearly passing out. Per documentation on arrival to [facility] patient was found to have O2 sats around 80%. The patient reports that he has been fully vaccinated against COVID-19 by receiving both doses of the Pfizer vaccine. He denies chest pain, palpitations, racing heart rate, edema, or orthopnea. Since admission the patient has test positive for Covid. Cardiology has been consulted because last night the patient has had a 7beat run on nonsustained vtach on monitor. The patient is followed by Dr. Martinez of our practice. Past History Past Medical History: acute [place], CAD, heart failure, hypertension, hyperlipidemia Past Surgical History: Other (Foot Tendon Repair/Tenotomy/Tenolysis - Date: 01/14/2019) Social history: , lives with family, smoking (former) Family history: no significant family history Medications and Allergies Allergies Allergy/AdvReac Type Severity Reaction Status Date / Time No Known Allergies Allergy Verified 03/28/21 07:20 Home Medications Medication Instructions Recorded Confirmed Last Taken Type Albuterol Sulfate [Proventil Hfa] 6.7 gm IH 4XD #1 hfa.aer.ad 03/26/21 03/28/21 Unknown Rx Benzonatate [Tessalon Perles] 100 mg PO Q8HR #20 capsule 03/26/21 03/28/21 Unknown Rx Coreg 12.5 mg PO BID 03/28/21 03/28/21 Unknown History Entresto 97 mg-103 mg Tablet 1 tab PO BID 03/28/21 03/28/21 Unknown History Gabapentin 300 mg PO DAILY 03/28/21 03/28/21 Unknown History Leflunomide 20 mg PO DAILY 03/28/21 03/28/21 Unknown History Simvastatin 20 mg PO HS 03/28/21 03/28/21 Unknown History Active Meds: Active Medications Acetaminophen (Acetaminophen 325 Mg Tab) 650 mg PO Q4H PRN PRN Reason: Pain MILD(1-3)/Fever >100.5/MIRANDA Albuterol (Albuterol 2.5 Mg/3 Ml Nebu) 2.5 mg IH TIDRT [facility] Last Admin: 03/29/21 11:07 Dose: Not Given Documented by: Aspirin (Aspirin 81 Mg Tab Chew) 81 mg PO QDAY [facility] Last Admin: 03/29/21 09:28 Dose: 81 mg Documented by: Benzonatate (Benzonatate 100 Mg Cap) 100 mg PO Q8HR [facility] Last Admin: 03/29/21 07:00 Dose: 100 mg Documented by: Budesonide (Budesonide 0.5 Mg/2 Ml Nebu) 0.5 mg IH BID [facility] Last Admin: 03/29/21 11:07 Dose: Not Given Documented by: Carvedilol (Carvedilol 25 Mg Tab) 25 mg PO Q12HR [facility] Last Admin: 03/29/21 09:26 Dose: Not Given Documented by: Dexamethasone (Dexamethasone 4 Mg/Ml Vial) 8 mg IV Q24H [facility] Stop: 04/05/21 13:01 Last Admin: 03/28/21 12:59 Dose: Not Given Documented by: Enoxaparin Sodium (Enoxaparin 40 Mg/0.4 Ml Inj) 40 mg SUB-Q DAILY [facility]; Protocol Last Admin: 03/29/21 09:27 Dose: 40 mg Documented by: Gabapentin (Gabapentin 300 Mg Cap) 300 mg PO QPM [facility] Ceftriaxone Sodium (Rocephin/Ns 1 Gm/50 Ml) 1 gm in 50 mls @ 100 mls/hr IV Q24H [facility]; Protocol Last Admin: 03/29/21 09:27 Dose: 100 mls/hr Documented by: Azithromycin (Zithromax/Ns) 500 mg in 250 mls @ 250 mls/hr IV Q24H [facility] Last Admin: 03/29/21 10:45 Dose: 250 mls/hr Documented by: REMDESIVIR 200 mg/ Sodium (Chloride) 250 mls @ 500 mls/hr IV ONCE ONE Stop: 03/29/21 14:46 REMDESIVIR 100 mg/ Sodium (Chloride) 250 mls @ 500 mls/hr IV Q24HR@2100 [facility] Stop: 04/02/21 21:29 Labetalol HCl (Labetalol 20 Mg/4 Ml Inj) 10 mg IV Q6HR PRN PRN Reason: sbp > 160, hold for hr < 70 Miscellaneous Medication (Leflunomide) 20 mg PO DAILY [facility] Ondansetron HCl (Ondansetron 4 Mg/2 Ml Inj) 4 mg IV Q8H PRN PRN Reason: Nausea And Vomiting Oxycodone/Acetaminophen (Oxycodone /Acetaminophen 5-325mg Tab) 1 tab PO Q6H PRN PRN Reason: Pain, Moderate (4-6) Pravastatin Sodium (Pravastatin 40 Mg Tab) 40 mg PO QHS [facility] Sodium Chloride (Sodium Chloride 0.9% 10 Ml Flush Syringe) 10 ml IV BID [facility] Last Admin: 03/29/21 09:28 Dose: 10 ml Documented by: Sodium Chloride (Sodium Chloride 0.9% 10 Ml Flush Syringe) 10 ml IV PRN PRN PRN Reason: LINE FLUSH Sodium Chloride (Sodium Chloride 0.9% 50 Ml Ivpb) 50 ml IV Q24HR@2100 [facility] Stop: 04/02/21 21:01 Review of Systems All systems: negative Constitutional: fever, chills, fatigue, weakness, malaise, poor appetite, no weight loss, no weight gain Ears, nose, mouth and throat: no nose pain, no nasal congestion, no nasal discharge, no sinus pressure Cardiovascular: lightheadedness, shortness of breath, dyspnea on exertion, no chest pain, no orthopnea, no palpitations, no edema Respiratory: cough, shortness of breath, dyspnea on exertion, no cough with sputum, no excessive sputum, no hemoptysis Gastrointestinal: nausea, diarrhea, no abdominal pain, no vomiting Musculoskeletal: no neck pain, no shooting arm pain, no arm numbness/tingling Integumentary: no rash, no pruritis, no redness Neurological: no head injury, no transient paralysis, no paralysis, no weakness Psychiatric: no anxiety, no memory loss Endocrine: no cold intolerance, no heat intolerance Hematologic/Lymphatic: no easy bruising, no easy bleeding Physical Examination Vital Signs Temp Pulse Resp BP Pulse Ox 98.5 F 110 H 22 99/81 80 L 03/28/21 07:27 03/28/21 07:27 03/28/21 07:27 03/28/21 07:27 03/28/21 07:27 General appearance: no acute distress HEENT: Positive: PERRL Neck: Positive: trachea midline Cardiac: Positive: Reg Rate and Rhythm Lungs: Positive: Normal Breath Sounds Neuro: Positive: Grossly Intact Abdomen: Positive: Soft, Active Bowel Sounds Skin: Negative: Rash, Suspicious Lesions, Ulceration Extremities: Present: upper extr. pulses, lower extr. pulses. Absent: edema Results 03/29/21 02:30 03/29/21 02:30 Cardiac Enzymes 03/29/21 Range/Units 02:30 AST 64 H (5-40) units/L CBC 03/29/21 Range/Units 02:30 WBC 6.4 (4.5-11.0) K/mm3 RBC 4.36 (3.65-5.03) M/mm3 Hgb 13.4 (11.8-15.2) gm/dl Hct 39.3 (35.5-45.6) % Plt Count 107 L (140-440) K/mm3 Lymph # (Auto) 0.4 L (1.2-5.4) K/mm3 [place] # (Auto) 0.6 (0.0-0.8) K/mm3 Eos # (Auto) 0.0 (0.0-0.4) K/mm3 Baso # (Auto) 0.0 (0.0-0.1) K/mm3 Comprehensive Metabolic Panel 03/29/21 03/29/21 Range/Units 02:30 02:30 Sodium 138 (137-145) mmol/L Potassium 4.1 4.3 (3.6-5.0) mmol/L Chloride 102.6 (98-107) mmol/L Carbon Dioxide 27 (22-30) mmol/L BUN 13 (9-20) mg/dL Creatinine 1.0 (0.8-1.3) mg/dL Glucose 128 H (75-100) mg/dL Calcium 8.9 (8.4-10.2) mg/dL AST 64 H (5-40) units/L ALT 34 (7-56) units/L Alkaline Phosphatase 37 (35-129) units/L Total Protein 7.2 (6.3-8.2) g/dL Albumin 3.1 L (3.9-5) g/dL - Imaging and Cardiology Echo: report reviewed EKG: report reviewed, image reviewed EKG interpretations - Telemetry EKG Rhythm: Sinus Tachycardia - EKG Sinus rhythms and dysrhythmias: sinus tachycardia Chamber hypertrophy or enlargement: left ventricular hypertro Assessment and Plan Patient is a 58 y/o male with a PMHx of HrEF (30-35%), CAD s/p PCI, ischemic cardiomyopathy, HTN Breakthrough COVID-19 PNA Sepsis Acute hypoxic respiratory failure * Patient received both doses of [employer] vaccine. COVID PCR positive * Currently on NC * ID consulted Nonsustained Vtach HFrEF CAD s/p PCI HTN * EKG- sinus tach 109 with APCs and LVH. No acute ischemic changes. Trops negative x2. AMI ruled out * Tele reviewed: Sinus 96 with 7 beat run of Vtach last night * Placement of ICD has been discussed with patient in the office but patient refuses * Echo 08/01/2020- LV wall thickness is mildly increased. EF 30-35%, RV size is mildly dilated, The RV systolic function is normal, severely dilated left atrium, there is mild aortic regurgitation there is moderate mitral valve prolapse, posterior leaflet, there is mild mitral regurgitation. * Lexiscan MPI stress test 12/24/2019- Large fixed inferior defect, medium sized fixed inferior lateral defect findings suggestive of prior infarction in right coronary and left circumflex coronary arteries. No evidence of significant stress-induced ischemia Plan: Resume home medications asa, Coreg 25mg PO BID, Entresto (49-51) 2 tablets PO BID, pravastatin. Continue to monitor Patient seen in conjunction with Dr. Vann who agrees with this plan. Will continue to follow - Patient Problems (1) HFrEF (heart failure with reduced ejection fraction) Current Visit: Yes Status: Acute (2) CAD (coronary artery disease) Current Visit: Yes Status: Acute (3) Cardiomyopathy Current Visit: Yes Status: Acute (4) HTN (hypertension) Current Visit: Yes Status: Acute (5) Pneumonitis Current Visit: Yes Status: Acute (6) Suspected COVID-19 virus infection Current Visit: Yes Status: Acute
[2021-03-29] MEDS: dexAMETHasone 4 MG/ML VIAL IV SCH (14:45)
[2021-03-29] MEDS ORDERED: REMDESIVIR 200 MG in SODIUM CHLORIDE 0.9% 250ML 250 ML IV ONE (16:00)
[2021-03-29] MEDS: SODIUM CHLORIDE 0.9% 50 ML IVPB IV SCH (16:00)
[2021-03-29 16:22] LABS: Alanine Aminotransferase 34 units/L (7-56); Albumin 2.8 g/dL (3.9-5); BUN/Creatinine Ratio 16; Blood Urea Nitrogen 14 mg/dL (9-20); Calcium 9.2 mg/dL (8.4-10.2); Hemolysis Index 10
[2021-03-29] MEDS: GABAPENTIN 300 MG CAP PO SCH (18:49)
[2021-03-29] MEDS ORDERED: diphenhydrAMINE 50 MG/ML VIAL IV ONE ×2 (19:48→19:58)
[2021-03-29] MEDS ORDERED: dexAMETHasone 4 MG/ML VIAL IV ONE (19:50)
[2021-03-29] MEDS ORDERED: FUROSEMIDE 40 MG/4 ML INJ ONE (19:53)
[2021-03-29] MEDS ORDERED: FUROSEMIDE 40 MG/4 ML INJ IV ONE (19:55)
[2021-03-29] MEDS ORDERED: MORPHINE 2 MG/1 ML INJ ONE ×2 (19:57→20:06)
[2021-03-29] MEDS ORDERED: MORPHINE 2 MG/1 ML INJ IV ONE (20:00)
--- NOTE | 2021-03-29 20:24 | XRay Report ---
CHEST 1 VIEW 03/29/2021 7:18 PM INDICATION / CLINICAL INFORMATION: Pleural effusion. COMPARISON: 03/28/21. FINDINGS: SUPPORT DEVICES: None. HEART / MEDIASTINUM: Unchanged. LUNGS / PLEURA: There are moderately severe diffuse bilateral parenchymal opacities, significantly in creased. There is mild thickening of the right minor fissure. No significant pleural effusion. No pne umothorax. ADDITIONAL FINDINGS: No significant additional findings. IMPRESSION: Diffuse bilateral parenchymal opacities have increased. Signer Name: Michael Tracy MD Signed: 03/29/2021 8:20 PM Workstation Name: [id number]
[2021-03-29] MEDS ORDERED: NON-FORMULARY EACH (Simvastatin 20 MG) PO SCH (22:00)
[2021-03-29] MEDS ORDERED: EPINEPHrine 1 MG/10 ML SYRINGE ONE (22:13)
[2021-03-29] MEDS: PRAVASTATIN 40 MG TAB PO SCH (22:30)
--- NOTE | 2021-03-30 06:20 | Event Note ---
Date: 03/29/21 Code met was called Patient had severe shortness of breath and severe diaphoresis 20 minutes after remdesivir first dose administration On my examination patient had bilateral rales and was tachypneic My initial impression was flash pulmonary edema and allergic reaction Patient was given IV Lasix IV morphine and IV Benadryl/epinephrine. Patient was initiated on BiPAP 15 minutes into the code met patient turned around and shortness of breath and diaphoresis improved Sats went up to 96% Initial sats were in the 60% Blood pressure was 160/115 L improved to 140/105 Chest x-ray showed worsening pulmonary opacities consistent with pulmonary edema compared to the first chest x-ray Impression acute pulmonary edema Patient has a history of CHF and is on Entresto Echocardiogram requested for ejection fraction Patient was not transferred to IMCU or ICU as the patient was deemed to be stable for the floor
[2021-03-30 06:37] LABS: Alanine Aminotransferase 28 units/L (7-56); Albumin 2.7 g/dL (3.9-5); BUN/Creatinine Ratio 17; Blood Urea Nitrogen 19 mg/dL (9-20); Calcium 8.5 mg/dL (8.4-10.2); Hemolysis Index 5
[2021-03-30] MEDS: BENZONATATE 100 MG CAP PO SCH ×3 (07:00→23:23)
[2021-03-30] MEDS: ALBUTEROL 2.5 MG/3 ML NEBU IH SCH ×3 (10:44→20:57)
[2021-03-30] MEDS: cefTRIAXone/NS 1 GM/50 ML 1 GM/50 ML BAG IV SCH (11:01)
[2021-03-30] MEDS: carvediloL 25 MG TAB PO SCH ×2 (11:02→23:21)
[2021-03-30] MEDS: ENOXAPARIN 40 MG/0.4 ML INJ SUB-Q SCH (11:02)
[2021-03-30] MEDS: SACUBITRIL/VALSARTAN 49-51 MG TAB PO SCH ×3 (11:02→23:21)
[2021-03-30] MEDS: ASPIRIN 81 MG TAB CHEW PO SCH (11:02)
[2021-03-30] MEDS: BUDESONIDE 0.5 MG/2 ML NEBU IH SCH (12:07)
[2021-03-30] MEDS: AZITHROMYCIN/NS 500 MG/250 ML 500 MG/250 ML BAG IV SCH (12:23)
--- NOTE | 2021-03-30 12:30 | Progress Note ---
Assessment and Plan Patient is a 58 y/o male with a PMHx of HrEF (30-35%), CAD s/p PCI, ischemic cardiomyopathy, HTN Breakthrough COVID-19 PNA Sepsis Acute hypoxic respiratory failure * Patient received both doses of Pfizer vaccine. COVID PCR positive * Currently on NC * ID following Nonsustained Vtach HFrEF CAD s/p PCI HTN * EKG- sinus tach 109 with APCs and LVH. No acute ischemic changes. Trops negative x2. AMI ruled out * Tele reviewed: Sinus 88 with 5 beat run of Vtach last night * Placement of ICD has been discussed with patient in the office but patient refuses * Echo 08/01/2020- LV wall thickness is mildly increased. EF 30-35%, RV size is mildly dilated, The RV systolic function is normal, severely dilated left atrium, there is mild aortic regurgitation there is moderate mitral valve prolapse, posterior leaflet, there is mild mitral regurgitation. * Lexiscan MPI stress test 12/24/2019- Large fixed inferior defect, medium sized fixed inferior lateral defect findings suggestive of prior infarction in right coronary and left circumflex coronary arteries. No evidence of significant stress-induced ischemia Plan: Continue home medications asa, Coreg 25mg PO BID, Entresto (49-51) 2 tablets PO BID, pravastatin. Continue to monitor Patient seen in conjunction with Dr. Vann who agrees with this plan. Will see as needed over the weekend - Patient Problems (1) HFrEF (heart failure with reduced ejection fraction) Current Visit: Yes Status: Acute (2) CAD (coronary artery disease) Current Visit: Yes Status: Acute (3) Cardiomyopathy Current Visit: Yes Status: Acute (4) HTN (hypertension) Current Visit: Yes Status: Acute (5) Pneumonitis Current Visit: Yes Status: Acute (6) Suspected COVID-19 virus infection Current Visit: Yes Status: Acute Subjective Date of service: 03/30/21 Principal diagnosis: COVID-19 PNA Interval history: Patient had code MET last night 20minutes after receiving 1st dose of remdesivir. Patient was put on Bipap due to dropping O2 sats. PEr dcumentation patient O2 went back up after 15minutes. At time of interiew patient is on NC and reports feeling well Sinus 88 with 5beat run of nonsustained Vtach at 12:30am Objective Vital Signs Temp Pulse Resp BP BP Pulse Ox 03/30/21 09:15 89 03/30/21 09:00 89 31 H 96 03/30/21 07:07 98.6 F 88 20 132/86 97 03/30/21 05:23 92 H 30 H 100 03/30/21 01:00 100 03/30/21 00:37 96 H 33 H 100 03/29/21 22:40 114 H 124/87 03/29/21 21:22 111 H 22 97 03/29/21 21:06 98.9 F 114 H 24 124/87 98 03/29/21 20:20 123 H 150/105 96 03/29/21 20:10 130 H 155/112 92 03/29/21 20:05 133 H 164/115 86 03/29/21 19:55 140 H 187/119 03/29/21 19:47 111 H 225/133 49 L 03/29/21 19:45 112 H 225/133 98 03/29/21 18:02 98.6 F 98 H 24 153/102 89 03/29/21 14:00 91 03/29/21 13:00 95 03/29/21 12:49 98.6 F 99 H 18 129/82 92 - Physical Examination General: No Apparent Distress HEENT: Positive: PERRL Neck: Positive: trachea midline Cardiac: Positive: Reg Rate and Rhythm Lungs: Positive: Decreased Breath Sounds, Rales Neuro: Positive: Grossly Intact Abdomen: Positive: Soft, Active Bowel Sounds Skin: Negative: Rash, Suspicious Lesions, Ulceration Extremities: Present: upper extr. pulses, lower extr. pulses. Absent: edema - Labs and Meds Cardiac Enzymes 03/29/21 03/30/21 Range/Units 15:30 06:07 AST 64 H 49 H (5-40) units/L Comprehensive Metabolic Panel 03/29/21 03/30/21 Range/Units 15:30 06:07 Sodium 139 140 (137-145) mmol/L Potassium 3.9 4.4 (3.6-5.0) mmol/L Chloride 104.3 103.9 (98-107) mmol/L Carbon Dioxide 21 L 26 (22-30) mmol/L BUN 14 19 (9-20) mg/dL Creatinine 0.9 1.1 (0.8-1.3) mg/dL Glucose 125 H 131 H (75-100) mg/dL Calcium 9.2 8.5 (8.4-10.2) mg/dL AST 64 H 49 H (5-40) units/L ALT 34 28 (7-56) units/L Alkaline Phosphatase 48 48 (35-129) units/L Total Protein 7.6 6.8 (6.3-8.2) g/dL Albumin 2.8 L 2.7 L (3.9-5) g/dL - Imaging and Cardiology EKG: report reviewed, image reviewed Echo: report reviewed - Telemetry EKG Rhythm: Sinus Rhythm - EKG Sinus rhythms and dysrhythmias: sinus rhythm Ventricular dysrhythmias: non-sustained ventricular Chamber hypertrophy or enlargement: left ventricular hypertro
--- NOTE | 2021-03-30 12:39 | Progress Note ---
Assessment and Plan Cultures: SARS CoV2 PCR: Positive 03/28/2021 blood culture: No growth A/P: 58-year-old male with hypertension, CHF, CAD admitted with cough, fever, shortness of breath, generalized weakness along with some loose stools: #Bilateral pneumonia: Secondary to COVID-19. Breakthrough infection. Vacci nated against COVID-19 with Pfizer back in Aug 2020. CTA negative for pulmonary thromboembolism, showed bilateral extensive pneumonitis. Elevated markers. Allergic reaction to remdesivir, hence stopped after 1st dose. #Acute hypoxic respiratory failure: Requiring salter nasal cannula. #Transaminitis: Likely secondary to COVID-19. #Thrombocytopenia #Rheumatoid arthritis, immunocompromised host: On leflunomide. #CHF Recs: continue IV/PO Dexamethasone x 10 days Allergic reaction to remdesivir, hence stopped after 1st dose if requiring HFNC >30 L/min, given elevated CRP, would meet criteria for Actemra prophylactic anticoagulation based on d-dimer per hospital protocol continue empiric abx (Ceftriaxone x 5 days and azithromycin x 3 days) due to mildly elevated procalcitonin, immunocompromised trend ferritin, d-dimer, CRP every 2-3 days Discussed with at bedside. Tanya Hazel MD, FACP [facility] ([facility] O: [phone] F: [phone] Subjective Date of service: 03/30/21 Principal diagnosis: COVID-19 PNA Interval history: No fever. Had respiratory distress, code met following administration of remdesivir yesterday, required steroids, epinephrine, Lasix and Benadryl. Briefly needed BiPAP, now down to Salter nasal cannula. Discussed with at bedside. Patient lying prone. Objective - Exam Narrative Exam: Physical Exam (reviewed in chart to minimize risk of transmission) Constitutional: deferred Head, Ears, Nose: deferred Eyes: deferred Neck: deferred Oral: deferred Cardiovascular: deferred Respiratory: deferred GI: deferred Musculoskeletal: deferred Skin: deferred Hem/Lymphatic: deferred Psych: deferred Neurological: deferred - Constitutional Vitals: Vital Signs Temp Pulse Resp BP Pulse Ox 98.1 F 94 H 18 125/91 89 03/30/21 11:02 03/30/21 11:02 03/30/21 11:02 03/30/21 11:02 03/30/21 11:02 Temperature -Last 24 Hours Temperature 98.1 F Temperature 98.6 F Temperature 98.9 F Temperature 98.6 F Temperature 98.6 F - Labs CBC & Chem 7: 03/29/21 02:30 03/30/21 06:07 Labs: Abnormal lab results 03/29/21 03/29/21 03/29/21 Range/Units 15:30 19:48 20:03 ABG pH 7.264 L (7.320-7.450) POC ABG pO2 51.4 L (83-108) mmHg ABG Oxyhemoglobin 77.6 L (94-98) ABG Glucose 275 H (65-95) mg/dL Carbon Dioxide 21 L (22-30) mmol/L Glucose 125 H (75-100) mg/dL POC Glucose 189 H (70-105) mg/dL AST 64 H (5-40) units/L Albumin 2.8 L (3.9-5) g/dL Arterial Blood Glucose 275 H (65-95) mg/dL Arterial Blood Ionized Calcium 4.5 L (4.6-5.3) mg/dL 03/30/21 Range/Units 06:07 ABG pH (7.320-7.450) POC ABG pO2 (83-108) mmHg ABG Oxyhemoglobin (94-98) ABG Glucose (65-95) mg/dL Carbon Dioxide (22-30) mmol/L Glucose 131 H (75-100) mg/dL POC Glucose (70-105) mg/dL AST 49 H (5-40) units/L Albumin 2.7 L (3.9-5) g/dL Arterial Blood Glucose (65-95) mg/dL Arterial Blood Ionized Calcium (4.6-5.3) mg/dL
--- NOTE | 2021-03-30 16:00 | Progress Note ---
Assessment and Plan Assessment and plan: 58-year-old male with past medical history of hypertension, congestive heart failure, [place] 18 years ago presenting for complaint of shortness of breath of onset last Friday. Patient states that over the course the last 2 days his symptoms progressively worsened. He had associated symptoms of fever, dry cough, poor p.o. intake, diarrhea and generalized weakness. Ongoing evaluation and treatment for covid pneumonia Hospital Course: 03/29/2021: Cardiology evaluated patient due to 5 beats NSVT. Increased coreg, continue entresto. Patient follows with Dr Martinez. ID evaluated patient, Remdesivir started. Will continue supportive care. 03/30/2021: Respiratory distress overnight. LIkely an allergic reaction to remdesivir. Remdesivir has since been discontinued. Was on BIPAP on encounter and has since been dropped to 15 l/min salter nc. Continue supportive management. Will order inflammatory markers. Assessment and Plan: 1. Acute hypoxic respiratory failure -Symptoms of shortness of breath, dry cough, fever, decreased appetite. High suspicion for Covid PNA. -Febrile 101.4 F, elevated inflammatory markers on admission -CTA chest: Negative for PE, findings consistent with bilateral viral pneumonia. Please refer to official radiology report ED course: Azithromycin IV, Rocephin IV, Decadron IV, albuterol nebulizer -Supplemental oxygen via nasal cannula, de-escalate as patient tolerates Covid therapies as below Albuterol and budesonide inhalers ordered 2. Suspected COVID-19 infection -Patient was vaccinated. Received both doses of Pfizer vaccine back in had similar symptoms however she recovered uneventfully Empiric antibiotic coverage with azithromycin IV, Rocephin IV. Procalcitonin ordered, will follow -Decadron 8 mg IV daily x10 days total therapy -DVT prophylaxis dosing Lovenox May be a candidate for Remdesivir however transaminitis noted. Will defer to ID. May be a candidate for Actemra , elevated CRP Infectious disease consulted 3. Sepsis Suspect viral pneumonia as source, temp 101.4F, tachycardic 111 bpm Blood cultures ordered in emergency department 4. Transaminitis -Elevated AST to 73. Likely due to underlying Covid viral illness May be a candidate for remdesivir as it is not greater than 4 times upper limit of normal 5. Chronic congestive heart failure -Resume home coreg, entresto -coreg increased by cardiology 6. Essential hypertension -Resume home coreg, entresto 7. Hyperlipidemia - resume home simvastatin 8. History of Rheumatoid Arthritis - resume home leflunamide 9. Peripheral neuropathy - resume home gabapentin History Interval history: Overnight patient had allergic reaction to remdesivir. Was in respiratory distress, required aditional steroid dose, epinephrine, H2 anuja, morphine. Was on bipap through the evening into this AM. Was resting comfortably on encounter. NO acute complaints. Discussed plan to d/c remdesivir and continue supporitve care otherwise. Hospitalist Physical - Physical exam Narrative exam: Physical Exam: Constitutional: Alert, cooperative. No acute distress. On bipap Head, Ears, Nose: Normocephalic, atraumatic. External ears, nose normal Eyes: Conjunctivae/corneas clear. No icterus. No ptosis. Neck: Supple, no meningeal signs Oral: dentition fair, no thrush Cardiovascular: S1, S2 normal. Respiratory: Good air entry, bilateral rhonchi GI: Soft, non-tender; bowel sounds normal. No peritoneal signs. Musculoskeletal: No pedal edema, no cyanosis. Skin: No rash or abscess, see nursing assessment for full skin exam Hem/Lymphatic: No palpable cervical or supraclavicular nodes. No lymphangitis Psych: Mood ok. Affect normal Neurological: Awake, alert, oriented. No gross abnormality - Constitutional Vitals: Temp Pulse Resp BP Pulse Ox 98.1 F 94 H 18 125/91 89 03/30/21 11:02 03/30/21 11:02 03/30/21 11:02 03/30/21 11:02 03/30/21 11:02 General appearance: Present: no acute distress HEART Score - HEART Score Troponin: Troponin T 0.013 ng/mL (0.00-0.029) 03/28/21 Unknown Results - Labs CBC & Chem 7: 03/29/21 02:30 03/30/21 06:07 Labs: Laboratory Last Values WBC 6.4 K/mm3 (4.5-11.0) 03/29/21 02:30 RBC 4.36 M/mm3 (3.65-5.03) 03/29/21 02:30 Hgb 13.4 gm/dl (11.8-15.2) 03/29/21 02:30 Hct 39.3 % (35.5-45.6) 03/29/21 02:30 MCV 90 fl (84-94) 03/29/21 02:30 MCH 31 pg (28-32) 03/29/21 02:30 MCHC 34 % (32-34) 03/29/21 02:30 RDW 15.4 % (13.2-15.2) H 03/29/21 02:30 Plt Count 107 K/mm3 (140-440) L 03/29/21 02:30 Lymph % (Auto) 5.6 % (13.4-35.0) L 03/29/21 02:30 Centre % (Auto) 10.0 % (0.0-7.3) H 03/29/21 02:30 Eos % (Auto) 0.0 % (0.0-4.3) 03/29/21 02:30 Baso % (Auto) 0.2 % (0.0-1.8) 03/29/21 02:30 Lymph # (Auto) 0.4 K/mm3 (1.2-5.4) L 03/29/21 02:30 Centre # (Auto) 0.6 K/mm3 (0.0-0.8) 03/29/21 02:30 Eos # (Auto) 0.0 K/mm3 (0.0-0.4) 03/29/21 02:30 Baso # (Auto) 0.0 K/mm3 (0.0-0.1) 03/29/21 02:30 Seg Neutrophils % 84.2 % (40.0-70.0) H 03/29/21 02:30 Seg Neutrophils # 5.4 K/mm3 (1.8-7.7) 03/29/21 02:30 PT 13.2 Sec. (12.2-14.9) 03/28/21 Unknown INR 0.95 (0.87-1.13) 03/28/21 Unknown APTT 38.7 Sec. (24.2-36.6) H 03/28/21 Unknown D-Dimer 1100.30 ng/mlDDU (0-234) H 03/28/21 09:25 ABG pH 7.264 (7.320-7.450) L 03/29/21 20:03 POC ABG pCO2 42.0 mmHg (32.0-48.0) 03/29/21 20:03 POC ABG pO2 51.4 mmHg (83-108) L 03/29/21 20:03 POC ABG HCO3 18.6 03/29/21 20:03 ABG O2 Saturation 78.9 (0-100) 03/29/21 20:03 POC ABG Base Excess -8.0 03/29/21 20:03 ABG Hemoglobin 15.1 (12.0-17.5) 03/29/21 20:03 ABG Oxyhemoglobin 77.6 (94-98) L 03/29/21 20:03 ABG Methemoglobin 0.2 (0.0-1.5) 03/29/21 20:03 ABG Sodium 136.8 mmol/L (136.0-145.0) 03/29/21 20:03 ABG Potassium 4.0 mmol/L (3.40-4.50) 03/29/21 20:03 ABG Chloride 104.0 mmol/L (98-107) 03/29/21 20:03 ABG Glucose 275 mg/dL (65-95) H 03/29/21 20:03 Carboxyhemoglobin 1.5 (0.5-1.5) 03/29/21 20:03 FiO2 % 100.0 03/29/21 20:03 Sodium 140 mmol/L (137-145) 03/30/21 06:07 Potassium 4.4 mmol/L (3.6-5.0) 03/30/21 06:07 Chloride 103.9 mmol/L (98-107) 03/30/21 06:07 Carbon Dioxide 26 mmol/L (22-30) 03/30/21 06:07 Anion Gap 15 mmol/L 03/30/21 06:07 BUN 19 mg/dL (9-20) 03/30/21 06:07 Creatinine 1.1 mg/dL (0.8-1.3) 03/30/21 06:07 Estimated GFR > 60 ml/min 03/30/21 06:07 BUN/Creatinine Ratio 17 % 03/30/21 06:07 Glucose 131 mg/dL (75-100) H 03/30/21 06:07 POC Glucose 189 mg/dL (70-105) H 03/29/21 19:48 Lactic Acid 1.60 mmol/L (0.7-2.0) 03/28/21 Unknown Calcium 8.5 mg/dL (8.4-10.2) 03/30/21 06:07 Magnesium 2.60 mg/dL (1.7-2.3) H 03/29/21 02:30 Ferritin 1340.0 ng/mL (30.0-300.0) H 03/28/21 09:25 Total Bilirubin 0.60 mg/dL (0.1-1.2) 03/30/21 06:07 AST 49 units/L (5-40) H 03/30/21 06:07 ALT 28 units/L (7-56) 03/30/21 06:07 Alkaline Phosphatase 48 units/L (35-129) 03/30/21 06:07 Lactate Dehydrogenase 677 units/L (91-180) H 03/28/21 09:25 Troponin T 0.013 ng/mL (0.00-0.029) 03/28/21 Unknown C-Reactive Protein 13.70 mg/dL (0.00-1.30) H 03/28/21 09:25 Total Protein 6.8 g/dL (6.3-8.2) 03/30/21 06:07 Albumin 2.7 g/dL (3.9-5) L 03/30/21 06:07 Albumin/Globulin Ratio 0.7 % 03/30/21 06:07 Procalcitonin 0.37 ng/mL (<0.15) 03/28/21 09:25 Arterial Blood Glucose 275 mg/dL (65-95) H 03/29/21 20:03 Arterial Blood Ionized Calcium 4.5 mg/dL (4.6-5.3) L 03/29/21 20:03 Urine Color [place] (Yellow) 03/28/21 Unknown Urine Turbidity Clear (Clear) 03/28/21 Unknown Urine pH 5.0 (5.0-7.0) 03/28/21 Unknown Ur Specific [place] 1.038 (1.003-1.030) H 03/28/21 Unknown Urine Protein >500 mg/dL (Negative) 03/28/21 Unknown Urine Glucose (UA) 50 mg/dL (Negative) 03/28/21 Unknown Urine Ketones Tr mg/dL (Negative) 03/28/21 Unknown Urine Blood Mod (Negative) 03/28/21 Unknown Urine Nitrite Neg (Negative) 03/28/21 Unknown Urine Bilirubin Neg (Negative) 03/28/21 Unknown Urine Urobilinogen 2.0 mg/dL (<2.0) 03/28/21 Unknown Ur Leukocyte Esterase Neg (Negative) 03/28/21 Unknown Urine WBC (Auto) 6.0 /HPF (0.0-6.0) 03/28/21 Unknown Urine RBC (Auto) 2.0 /HPF (0.0-6.0) 03/28/21 Unknown U Epithel Cells (Auto) < 1.0 /HPF (0-13.0) 03/28/21 Unknown Urine Mucus Few /HPF 03/28/21 Unknown Coronavirus (PCR) Positive (Negative) A 03/28/21 Unknown Microbiology: Microbiology 03/28/21 08:26 Peripheral/Venous Blood Culture - Preliminary NO GROWTH AFTER 48 HOURS 03/28/21 08:26 Peripheral/Venous Blood Culture - Preliminary NO GROWTH AFTER 48 HOURS [place]/IV: Voiding Method Urinal Active Medications - Current Medications Current Medications: Generic Name Dose Route Start Last Admin Trade Name Freq PRN Reason Stop Dose Admin Acetaminophen 650 mg 03/28/21 12:45 Acetaminophen 325 Mg Tab PO Q4H PRN Pain MILD(1-3)/Fever >100.5/MIRANDA Albuterol 2.5 mg 03/29/21 08:00 03/30/21 10:44 Albuterol 2.5 Mg/3 Ml Nebu IH Not Given TIDRT LISSETTE Aspirin 81 mg 03/29/21 10:00 03/30/21 11:02 Aspirin 81 Mg Tab Chew PO 81 mg QDAY LISSETTE Administration Benzonatate 100 mg 03/29/21 07:00 03/30/21 07:00 Benzonatate 100 Mg Cap PO 100 mg Q8HR LISSETTE Administration Budesonide 0.5 mg 03/28/21 14:00 03/30/21 12:07 Budesonide 0.5 Mg/2 Ml Nebu IH Not Given BID LISSETTE Carvedilol 25 mg 03/29/21 10:00 03/30/21 11:02 Carvedilol 25 Mg Tab PO 25 mg Q12HR LISSETTE Administration Dexamethasone 8 mg 03/28/21 13:00 03/29/21 14:45 Dexamethasone 4 Mg/Ml Vial IV 04/05/21 13:01 8 mg Q24H LISSETTE Administration Enoxaparin Sodium 40 mg 03/28/21 14:00 03/30/21 11:02 Enoxaparin 40 Mg/0.4 Ml Inj SUB-Q 40 mg DAILY LISSETTE Administration Protocol Gabapentin 300 mg 03/29/21 18:00 03/29/21 18:49 Gabapentin 300 Mg Cap PO 300 mg QPM LISSETTE Administration Ceftriaxone Sodium 1 gm in 50 mls @ 100 mls/hr 03/29/21 10:00 03/30/21 11:01 Rocephin/Ns 1 Gm/50 Ml IV 100 mls/hr Q24H [facility] Administration Protocol Azithromycin 500 mg in 250 mls @ 250 mls/hr 03/29/21 10:00 03/30/21 12:23 Zithromax/Ns IV 250 mls/hr Q24H LISSETTE Administration Labetalol HCl 10 mg 03/28/21 15:34 Labetalol 20 Mg/4 Ml Inj IV Q6HR PRN sbp > 160, hold for hr < 70 Miscellaneous Medication 20 mg 03/29/21 10:00 Leflunomide PO DAILY [facility] Ondansetron HCl 4 mg 03/28/21 12:45 Ondansetron 4 Mg/2 Ml Inj IV Q8H PRN Nausea And Vomiting Oxycodone/Acetaminophen 1 tab 03/28/21 12:45 Oxycodone /Acetaminophen 5-325mg Tab PO Q6H PRN Pain, Moderate (4-6) Pravastatin Sodium 40 mg 03/29/21 22:00 03/29/21 22:30 Pravastatin 40 Mg Tab PO 40 mg QHS LISSETTE Administration Sodium Chloride 10 ml 03/28/21 22:00 03/30/21 12:23 Sodium Chloride 0.9% 10 Ml Flush Syringe IV 10 ml BID LISSETTE Administration Sodium Chloride 10 ml 03/28/21 12:45 Sodium Chloride 0.9% 10 Ml Flush Syringe IV PRN PRN LINE FLUSH Sodium Chloride 50 ml 03/29/21 16:00 Sodium Chloride 0.9% 50 Ml Ivpb IV 04/02/21 21:01 Q24HR@2100 [facility] Nutrition/Malnutrition Assess - Dietary Evaluation Nutrition/Malnutrition Findings: Nutrition Notes Start: 03/29/21 14:40 Freq: Status: Active Protocol: Document 03/29/21 14:40 GB (Rec: 03/29/21 14:49 GB [email or web address]) 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 Weight Status Obese Subjective/Other Information Admission notes report no change in weight, decrease in po intake related to decreased appetite and per H&P symptoms over past 2 days. Percent of energy/protein needs met: PO intake of 50% or greater of meals TID daily will meet 80% or greater of estimated energy needs. Burn Absent Trauma Absent GI Symptoms Diarrhea Food Allergy No Skin Integrity/Comment no reported skin complications Minimum of two criteria No #1 Nutrition Diagnosis Predicted suboptimal energy intake Comments: depending on duration and complications of possible covid and treatments Etiology SOB As Evidenced by Signs and Symptoms reported decreased PO r/t decreased appetite Is patient on ventilator? No Is Patient Ambulatory and/or Out of Bed Yes REE-([facility]-ambulatory/OOB) [ 1994.044 [id number]] Kcal/Kg value to use for calculation 22 Approximate Energy Requirements Using 1841 kcal/Kg Calculation Used for Recommendations Kcal/kg Additional Notes Protein: 0.8-1 g/kg @83k- 83g Fluids: 1 ml/kcal or per MD Nutrition Intervention Change Diet Order: continue Nutrition Support: n/a Add Supplement/Snack (indicate name/kcal Add supplement Ensure BID if /protein ) po intake of meals is less than 50%/day Goal #1 PO intake of meals to be 50% or greater TID daily for LOS Goal #2 Weight to maintain within +/-3 % current weight for LOS Follow-Up By: 04/03/21 Additional Comments nursing staff to monitor and record PO intake of meals daily.
[2021-03-30] MEDS: dexAMETHasone 4 MG/ML VIAL IV SCH (16:32)
[2021-03-30] MEDS: GABAPENTIN 300 MG CAP PO SCH (19:18)
[2021-03-30] MEDS: SODIUM CHLORIDE 0.9% 50 ML IVPB IV SCH (21:00)
[2021-03-30] MEDS ORDERED: REMDESIVIR 100 MG in SODIUM CHLORIDE 0.9% 250ML 250 ML IV SCH (21:00)
[2021-03-30] MEDS: PRAVASTATIN 40 MG TAB PO SCH (23:22)
[2021-03-31] MEDS: BUDESONIDE 0.5 MG/2 ML NEBU IH SCH ×2 (03:39→10:24)
[2021-03-31] MEDS: SODIUM CHLORIDE 0.9% 50 ML IVPB IV SCH (06:06)
[2021-03-31] MEDS: BENZONATATE 100 MG CAP PO SCH ×3 (06:38→21:35)
--- NOTE | 2021-03-31 08:23 | Progress Note ---
Assessment and Plan Assessment and plan: 58-year-old male with past medical history of hypertension, congestive heart failure, [place] 18 years ago presenting for complaint of shortness of breath of onset last Friday. Patient states that over the course the last 2 days his symptoms progressively worsened. He had associated symptoms of fever, dry cough, poor p.o. intake, diarrhea and generalized weakness. Ongoing evaluation and treatment for covid pneumonia Hospital Course: 03/29/2021: Cardiology evaluated patient due to 5 beats NSVT. Increased coreg, continue entresto. Patient follows with Dr Martinez. ID evaluated patient, Remdesivir started. Will continue supportive care. 03/30/2021: Respiratory distress overnight. LIkely an allergic reaction to remdesivir. Remdesivir has since been discontinued. Was on BIPAP on encounter and has since been dropped to 15 l/min salter nc. Continue supportive management. Will order inflammatory markers. 03/31/2021: Remains on salter nc 15l /min. sats 88-90% but in no distress. Continue supporitve management. Increased steroids to 60 q6hr. Obtained Pulmonology consult. CXR ordered, will follow. Assessment and Plan: 1. Acute hypoxic respiratory failure -Symptoms of shortness of breath, dry cough, fever, decreased appetite. High suspicion for Covid PNA. -Febrile 101.4 F, elevated inflammatory markers on admission -CTA chest: Negative for PE, findings consistent with bilateral viral pneumonia. Please refer to official radiology report ED course: Azithromycin IV, Rocephin IV, Decadron IV, albuterol nebulizer -Supplemental oxygen via nasal cannula, de-escalate as patient tolerates Covid therapies as below Albuterol and budesonide inhalers ordered 2. Suspected COVID-19 infection -Patient was vaccinated. Received both doses of Pfizer vaccine back in had similar symptoms however she recovered uneventfully Empiric antibiotic coverage with azithromycin IV, Rocephin IV. Procalcitonin ordered, will follow -Decadron 8 mg IV daily x10 days total therapy -DVT prophylaxis dosing Lovenox May be a candidate for Remdesivir however transaminitis noted. Will defer to ID. May be a candidate for Actemra , elevated CRP Infectious disease consulted 3. Sepsis Suspect viral pneumonia as source, temp 101.4F, tachycardic 111 bpm Blood cultures ordered in emergency department 4. Transaminitis -Elevated AST to 73. Likely due to underlying Covid viral illness May be a candidate for remdesivir as it is not greater than 4 times upper limit of normal 5. Chronic congestive heart failure -Resume home coreg, entresto -coreg increased by cardiology 6. Essential hypertension -Resume home coreg, entresto 7. Hyperlipidemia - resume home simvastatin 8. History of Rheumatoid Arthritis - resume home leflunamide 9. Peripheral neuropathy - resume home gabapentin History Interval history: Patient saturations 88-90% on salter nc however he denies any distress. present at bedside. Discussed escalating steroids and obtaining a cxr which they agreed to. Hospitalist Physical - Physical exam Narrative exam: Physical Exam: Constitutional: Alert, cooperative. No acute distress. On salter nc 15L/min Head, Ears, Nose: Normocephalic, atraumatic. External ears, nose normal Eyes: Conjunctivae/corneas clear. No icterus. No ptosis. Neck: Supple, no meningeal signs Oral: dentition fair, no thrush Cardiovascular: S1, S2 normal. Respiratory: Good air entry, bilateral rhonchi GI: Soft, non-tender; bowel sounds normal. No peritoneal signs. Musculoskeletal: No pedal edema, no cyanosis. Skin: No rash or abscess, see nursing assessment for full skin exam Hem/Lymphatic: No palpable cervical or supraclavicular nodes. No lymphangitis Psych: Mood ok. Affect normal Neurological: Awake, alert, oriented. No gross abnormality - Constitutional Vitals: Temp Pulse Resp BP Pulse Ox 98.2 F 85 18 125/79 88 03/31/21 05:17 03/31/21 05:17 03/31/21 05:17 03/31/21 05:17 03/31/21 05:17 General appearance: Present: no acute distress HEART Score - HEART Score Troponin: Troponin T 0.013 ng/mL (0.00-0.029) 03/28/21 Unknown Results - Labs CBC & Chem 7: 03/31/21 07:38 03/31/21 07:38 Labs: Laboratory Last Values WBC 6.4 K/mm3 (4.5-11.0) 03/29/21 02:30 RBC 4.36 M/mm3 (3.65-5.03) 03/29/21 02:30 Hgb 13.4 gm/dl (11.8-15.2) 03/29/21 02:30 Hct 39.3 % (35.5-45.6) 03/29/21 02:30 MCV 90 fl (84-94) 03/29/21 02:30 MCH 31 pg (28-32) 03/29/21 02:30 MCHC 34 % (32-34) 03/29/21 02:30 RDW 15.4 % (13.2-15.2) H 03/29/21 02:30 Plt Count 107 K/mm3 (140-440) L 03/29/21 02:30 Lymph % (Auto) 5.6 % (13.4-35.0) L 03/29/21 02:30 Faulk % (Auto) 10.0 % (0.0-7.3) H 03/29/21 02:30 Eos % (Auto) 0.0 % (0.0-4.3) 03/29/21 02:30 Baso % (Auto) 0.2 % (0.0-1.8) 03/29/21 02:30 Lymph # (Auto) 0.4 K/mm3 (1.2-5.4) L 03/29/21 02:30 [place] # (Auto) 0.6 K/mm3 (0.0-0.8) 03/29/21 02:30 Eos # (Auto) 0.0 K/mm3 (0.0-0.4) 03/29/21 02:30 Baso # (Auto) 0.0 K/mm3 (0.0-0.1) 03/29/21 02:30 Seg Neutrophils % 84.2 % (40.0-70.0) H 03/29/21 02:30 Seg Neutrophils # 5.4 K/mm3 (1.8-7.7) 03/29/21 02:30 PT 13.2 Sec. (12.2-14.9) 03/28/21 Unknown INR 0.95 (0.87-1.13) 03/28/21 Unknown APTT 38.7 Sec. (24.2-36.6) H 03/28/21 Unknown D-Dimer 1100.30 ng/mlDDU (0-234) H 03/28/21 09:25 ABG pH 7.264 (7.320-7.450) L 03/29/21 20:03 POC ABG pCO2 42.0 mmHg (32.0-48.0) 03/29/21 20:03 POC ABG pO2 51.4 mmHg (83-108) L 03/29/21 20:03 POC ABG HCO3 18.6 03/29/21 20:03 ABG O2 Saturation 78.9 (0-100) 03/29/21 20:03 POC ABG Base Excess -8.0 03/29/21 20:03 ABG Hemoglobin 15.1 (12.0-17.5) 03/29/21 20:03 ABG Oxyhemoglobin 77.6 (94-98) L 03/29/21 20:03 ABG Methemoglobin 0.2 (0.0-1.5) 03/29/21 20:03 ABG Sodium 136.8 mmol/L (136.0-145.0) 03/29/21 20:03 ABG Potassium 4.0 mmol/L (3.40-4.50) 03/29/21 20:03 ABG Chloride 104.0 mmol/L (98-107) 03/29/21 20:03 ABG Glucose 275 mg/dL (65-95) H 03/29/21 20:03 Carboxyhemoglobin 1.5 (0.5-1.5) 03/29/21 20:03 FiO2 % 100.0 03/29/21 20:03 Sodium 140 mmol/L (137-145) 03/30/21 06:07 Potassium 4.4 mmol/L (3.6-5.0) 03/30/21 06:07 Chloride 103.9 mmol/L (98-107) 03/30/21 06:07 Carbon Dioxide 26 mmol/L (22-30) 03/30/21 06:07 Anion Gap 15 mmol/L 03/30/21 06:07 BUN 19 mg/dL (9-20) 03/30/21 06:07 Creatinine 1.1 mg/dL (0.8-1.3) 03/30/21 06:07 Estimated GFR > 60 ml/min 03/30/21 06:07 BUN/Creatinine Ratio 17 % 03/30/21 06:07 Glucose 131 mg/dL (75-100) H 03/30/21 06:07 POC Glucose 189 mg/dL (70-105) H 03/29/21 19:48 Lactic Acid 1.60 mmol/L (0.7-2.0) 03/28/21 Unknown Calcium 8.5 mg/dL (8.4-10.2) 03/30/21 06:07 Magnesium 2.60 mg/dL (1.7-2.3) H 03/29/21 02:30 Ferritin 1340.0 ng/mL (30.0-300.0) H 03/28/21 09:25 Total Bilirubin 0.60 mg/dL (0.1-1.2) 03/30/21 06:07 AST 49 units/L (5-40) H 03/30/21 06:07 ALT 28 units/L (7-56) 03/30/21 06:07 Alkaline Phosphatase 48 units/L (35-129) 03/30/21 06:07 Lactate Dehydrogenase 677 units/L (91-180) H 03/28/21 09:25 Troponin T 0.013 ng/mL (0.00-0.029) 03/28/21 Unknown C-Reactive Protein 13.70 mg/dL (0.00-1.30) H 03/28/21 09:25 Total Protein 6.8 g/dL (6.3-8.2) 03/30/21 06:07 Albumin 2.7 g/dL (3.9-5) L 03/30/21 06:07 Albumin/Globulin Ratio 0.7 % 03/30/21 06:07 Procalcitonin 0.37 ng/mL (<0.15) 03/28/21 09:25 Arterial Blood Glucose 275 mg/dL (65-95) H 03/29/21 20:03 Arterial Blood Ionized Calcium 4.5 mg/dL (4.6-5.3) L 03/29/21 20:03 Urine Color [place] (Yellow) 03/28/21 Unknown Urine Turbidity Clear (Clear) 03/28/21 Unknown Urine pH 5.0 (5.0-7.0) 03/28/21 Unknown Ur Specific [place] 1.038 (1.003-1.030) H 03/28/21 Unknown Urine Protein >500 mg/dL (Negative) 03/28/21 Unknown Urine Glucose (UA) 50 mg/dL (Negative) 03/28/21 Unknown Urine Ketones Tr mg/dL (Negative) 03/28/21 Unknown Urine Blood Mod (Negative) 03/28/21 Unknown Urine Nitrite Neg (Negative) 03/28/21 Unknown Urine Bilirubin Neg (Negative) 03/28/21 Unknown Urine Urobilinogen 2.0 mg/dL (<2.0) 03/28/21 Unknown Ur Leukocyte Esterase Neg (Negative) 03/28/21 Unknown Urine WBC (Auto) 6.0 /HPF (0.0-6.0) 03/28/21 Unknown Urine RBC (Auto) 2.0 /HPF (0.0-6.0) 03/28/21 Unknown U Epithel Cells (Auto) < 1.0 /HPF (0-13.0) 03/28/21 Unknown Urine Mucus Few /HPF 03/28/21 Unknown Coronavirus (PCR) Positive (Negative) A 03/28/21 Unknown Microbiology: Microbiology 03/28/21 08:26 Peripheral/Venous Blood Culture - Preliminary NO GROWTH AFTER 48 HOURS 03/28/21 08:26 Peripheral/Venous Blood Culture - Preliminary NO GROWTH AFTER 48 HOURS [place]oney/IV: Voiding Method Urinal Active Medications - Current Medications Current Medications: Generic Name Dose Route Start Last Admin Trade Name Freq PRN Reason Stop Dose Admin Acetaminophen 650 mg 03/28/21 12:45 Acetaminophen 325 Mg Tab PO Q4H PRN Pain MILD(1-3)/Fever >100.5/MIRANDA Albuterol 2.5 mg 03/29/21 08:00 03/30/21 20:57 Albuterol 2.5 Mg/3 Ml Nebu IH Not Given TIDRT LISSETTE Aspirin 81 mg 03/29/21 10:00 03/30/21 11:02 Aspirin 81 Mg Tab Chew PO 81 mg QDAY LISSETTE Administration Benzonatate 100 mg 03/29/21 07:00 03/31/21 06:38 Benzonatate 100 Mg Cap PO 100 mg Q8HR LISSETTE Administration Budesonide 0.5 mg 03/28/21 14:00 03/31/21 03:39 Budesonide 0.5 Mg/2 Ml Nebu IH Not Given BID LISSETTE Carvedilol 25 mg 03/29/21 10:00 03/30/21 23:21 Carvedilol 25 Mg Tab PO 25 mg Q12HR LISSETTE Administration Dexamethasone 8 mg 03/28/21 13:00 03/30/21 16:32 Dexamethasone 4 Mg/Ml Vial IV 04/05/21 13:01 8 mg Q24H LISSETTE Administration Enoxaparin Sodium 40 mg 03/28/21 14:00 03/30/21 11:02 Enoxaparin 40 Mg/0.4 Ml Inj SUB-Q 40 mg DAILY LISSETTE Administration Protocol Gabapentin 300 mg 03/29/21 18:00 03/30/21 19:18 Gabapentin 300 Mg Cap PO 300 mg QPM LISSETTE Administration Ceftriaxone Sodium 1 gm in 50 mls @ 100 mls/hr 03/29/21 10:00 03/30/21 11:01 Rocephin/Ns 1 Gm/50 Ml IV 100 mls/hr Q24H [facility] Administration Protocol Azithromycin 500 mg in 250 mls @ 250 mls/hr 03/29/21 10:00 03/30/21 12:23 Zithromax/Ns IV 250 mls/hr Q24H [place]TE Administration Labetalol HCl 10 mg 03/28/21 15:34 Labetalol 20 Mg/4 Ml Inj IV Q6HR PRN sbp > 160, hold for hr < 70 Miscellaneous Medication 20 mg 03/29/21 10:00 Leflunomide PO DAILY [facility] Ondansetron HCl 4 mg 03/28/21 12:45 Ondansetron 4 Mg/2 Ml Inj IV Q8H PRN Nausea And Vomiting Oxycodone/Acetaminophen 1 tab 03/28/21 12:45 Oxycodone /Acetaminophen 5-325mg Tab PO Q6H PRN Pain, Moderate (4-6) Pravastatin Sodium 40 mg 03/29/21 22:00 03/30/21 23:22 Pravastatin 40 Mg Tab PO 40 mg QHS LISSETTE Administration Sodium Chloride 10 ml 03/28/21 22:00 03/30/21 23:23 Sodium Chloride 0.9% 10 Ml Flush Syringe IV 10 ml BID LISSETTE Administration Sodium Chloride 10 ml 03/28/21 12:45 Sodium Chloride 0.9% 10 Ml Flush Syringe IV PRN PRN LINE FLUSH Sodium Chloride 50 ml 03/29/21 16:00 03/30/21 21:00 Sodium Chloride 0.9% 50 Ml Ivpb IV 04/02/21 21:01 Not Given Q24HR@2100 [facility] Nutrition/Malnutrition Assess - Dietary Evaluation Nutrition/Malnutrition Findings: Nutrition Notes Start: 03/29/21 14:40 Freq: Status: Active Protocol: Document 03/29/21 14:40 GB (Rec: 03/29/21 14:49 GB [id number]) Nutrition Notes Need for Assessment generated from: ice cutter Initial or Follow up Assessment Current Diagnosis Hypertension,Heart Failure Other Pertinent Diagnosis SOB Current Diet cardiac Labs/Tests 03/29: glucose 128, Mg 2.6 elevated x2 events, AST 64 elevated x2 events Pertinent Medications Azithromycin, Remdesevir, NaCl Height 5 ft 5 in Weight 83.7 kg [place] Body Weight (kg) 61.81 BMI 30.7 Intake Prior to Admission Fair Weight change and time frame No reported change in weight. Weight Status Obese Subjective/Other Information Admission notes report no change in weight, decrease in po intake related to decreased appetite and per H&P symptoms over past 2 days. Percent of energy/protein needs met: PO intake of 50% or greater of meals TID daily will meet 80% or greater of estimated energy needs. Burn Absent Trauma Absent GI Symptoms Diarrhea Food Allergy No Skin Integrity/Comment no reported skin complications Minimum of two criteria No #1 Nutrition Diagnosis Predicted suboptimal energy intake Comments: depending on duration and complications of possible covid and treatments Etiology SOB As Evidenced by Signs and Symptoms reported decreased PO r/t decreased appetite Is patient on ventilator? No Is Patient Ambulatory and/or Out of Bed Yes REE-([facility]-ambulatory/OOB) [ 1994.044 NUTR.[id number]] Kcal/Kg value to use for calculation 22 Approximate Energy Requirements Using 1841 kcal/Kg Calculation Used for Recommendations Kcal/kg Additional Notes Protein: 0.8-1 g/kg @83k- 83g Fluids: 1 ml/kcal or per MD Nutrition Intervention Change Diet Order: continue Nutrition Support: n/a Add Supplement/Snack (indicate name/kcal Add supplement Ensure BID if /protein ) po intake of meals is less than 50%/day Goal #1 PO intake of meals to be 50% or greater TID daily for LOS Goal #2 Weight to maintain within +/-3 % current weight for LOS Follow-Up By: 04/03/21 Additional Comments nursing staff to monitor and record PO intake of meals daily.
[2021-03-31 08:25] LABS: Alanine Aminotransferase 29 units/L (7-56); Albumin 2.9 g/dL (3.9-5); Blood Urea Nitrogen 19 mg/dL (9-20); Calcium 8.7 mg/dL (8.4-10.2); Hemolysis Index 3
[2021-03-31] MEDS: ALBUTEROL 2.5 MG/3 ML NEBU IH SCH ×2 (08:25→14:25)
[2021-03-31 08:33] LABS: BUN/Creatinine Ratio 27
[2021-03-31 08:45] LABS: Basophils % (Auto) 0.2 % (0.0-1.8); Hematocrit 38.8 % (35.5-45.6); Lymphocytes # (Auto) 0.3 K/mm3 (1.2-5.4); Lymphocytes % (Auto) 2.4 % (13.4-35.0); Mean Corpuscular HGB Conc 34 % (32-34); Mean Corpuscular Volume 89 fl (84-94); Monocytes % (Auto) 8.4 % (0.0-7.3); Platelet Count 188 K/mm3 (140-440); Red Blood Count 4.34 M/mm3 (3.65-5.03); Red Cell Distribution Width 15.4 % (13.2-15.2)
[2021-03-31] MEDS: SACUBITRIL/VALSARTAN 49-51 MG TAB PO SCH ×2 (09:38→23:06)
[2021-03-31] MEDS: ENOXAPARIN 40 MG/0.4 ML INJ SUB-Q SCH (09:39)
[2021-03-31] MEDS: ASPIRIN 81 MG TAB CHEW PO SCH (09:39)
[2021-03-31] MEDS: AZITHROMYCIN/NS 500 MG/250 ML 500 MG/250 ML BAG IV SCH (09:39)
[2021-03-31] MEDS: carvediloL 25 MG TAB PO SCH ×2 (09:39→21:35)
[2021-03-31] MEDS: cefTRIAXone/NS 1 GM/50 ML 1 GM/50 ML BAG IV SCH (09:39)
[2021-03-31] MEDS ORDERED: methylPREDNISolone Sod Succinate 125 MG/2 ML INJ IV SCH (14:00)
--- NOTE | 2021-03-31 16:13 | XRay Report ---
CHEST 1 VIEW INDICATION / CLINICAL INFORMATION: Pulmonary edema. COMPARISON: 2 days prior FINDINGS: SUPPORT DEVICES: None. HEART / MEDIASTINUM: No significant abnormality. LUNGS / PLEURA: No significant interval change in diffuse bilateral airspace opacities No pneumothora x. ADDITIONAL FINDINGS: No significant additional findings. IMPRESSION: No significant interval change in diffuse airspace disease within the bilateral lungs, could reflect edema or pneumonia. Signer Name: Pierce Kumar MD Signed: 03/31/2021 4:09 PM Workstation Name: [id number]
[2021-03-31] MEDS: oxyCODONE /ACETAMINOPHEN 5-325MG TAB PO PRN (17:05)
--- NOTE | 2021-03-31 17:09 | Progress Note ---
Subjective Date of service: 03/31/21 Principal diagnosis: COVID-19 PNA Objective Vital Signs - 12hr 03/31/21 03/31/21 03/31/21 05:17 10:00 11:33 Temperature 98.2 F Pulse Rate 85 98 H Respiratory 18 Rate Blood Pressure 125/79 O2 Sat by Pulse 88 92 81 L Oximetry CBC and BMP: 03/31/21 07:38 03/31/21 07:38 ABG, PT/INR, D-dimer: ABG ABG pH 7.264 (7.320-7.450) L 03/29/21 20:03 POC ABG pCO2 42.0 mmHg (32.0-48.0) 03/29/21 20:03 POC ABG pO2 51.4 mmHg (83-108) L 03/29/21 20:03 POC ABG HCO3 18.6 03/29/21 20:03 ABG O2 Saturation 78.9 (0-100) 03/29/21 20:03 PT/INR, D-dimer PT 13.2 Sec. (12.2-14.9) 03/28/21 Unknown INR 0.95 (0.87-1.13) 03/28/21 Unknown D-Dimer > 08878 ng/mlDDU (0-234) H 03/31/21 07:38 Abnormal lab findings: Abnormal Labs 03/28/21 03/28/21 03/28/21 08:26 09:25 09:25 WBC RDW Plt Count Lymph % (Auto) [place] % (Auto) Lymph # (Auto) [place] # (Auto) Seg Neutrophils % Seg Neutrophils # APTT D-Dimer 1100.30 H ABG pH POC ABG pO2 ABG Oxyhemoglobin ABG Glucose Carbon Dioxide Creatinine Glucose 109 H POC Glucose Magnesium 2.40 H Ferritin AST Lactate Dehydrogenase 677 H C-Reactive Protein 13.70 H Albumin Arterial Blood Glucose Arterial Blood Ionized Calcium Ur Specific [place] Coronavirus (PCR) 03/28/21 03/28/21 03/28/21 09:25 Unknown Unknown WBC RDW Plt Count 96 L Lymph % (Auto) 7.2 L [place] % (Auto) 10.8 H Lymph # (Auto) 0.5 L [place] # (Auto) Seg Neutrophils % 81.8 H Seg Neutrophils # APTT D-Dimer ABG pH POC ABG pO2 ABG Oxyhemoglobin ABG Glucose Carbon Dioxide Creatinine Glucose POC Glucose Magnesium Ferritin 1340.0 H AST Lactate Dehydrogenase C-Reactive Protein Albumin Arterial Blood Glucose Arterial Blood Ionized Calcium Ur Specific [place] 1.038 H Coronavirus (PCR) 03/28/21 03/28/21 03/28/21 Unknown Unknown Unknown WBC RDW Plt Count Lymph % (Auto) [place] % (Auto) Lymph # (Auto) [place] # (Auto) Seg Neutrophils % Seg Neutrophils # APTT 38.7 H D-Dimer ABG pH POC ABG pO2 ABG Oxyhemoglobin ABG Glucose Carbon Dioxide Creatinine Glucose 120 H POC Glucose Magnesium Ferritin AST 73 H Lactate Dehydrogenase C-Reactive Protein Albumin 3.4 L Arterial Blood Glucose Arterial Blood Ionized Calcium Ur Specific [place] Coronavirus (PCR) Positive A 03/29/21 03/29/21 03/29/21 02:30 02:30 02:30 WBC RDW 15.4 H Plt Count 107 L Lymph % (Auto) 5.6 L [place] % (Auto) 10.0 H Lymph # (Auto) 0.4 L [place] # (Auto) Seg Neutrophils % 84.2 H Seg Neutrophils # APTT D-Dimer ABG pH POC ABG pO2 ABG Oxyhemoglobin ABG Glucose Carbon Dioxide Creatinine Glucose 128 H POC Glucose Magnesium 2.60 H Ferritin AST 64 H Lactate Dehydrogenase C-Reactive Protein Albumin 3.1 L Arterial Blood Glucose Arterial Blood Ionized Calcium Ur Specific [place] Coronavirus (PCR) 03/29/21 03/29/21 03/29/21 15:30 19:48 20:03 WBC RDW Plt Count Lymph % (Auto) [place] % (Auto) Lymph # (Auto) [place] # (Auto) Seg Neutrophils % Seg Neutrophils # APTT D-Dimer ABG pH 7.264 L POC ABG pO2 51.4 L ABG Oxyhemoglobin 77.6 L ABG Glucose 275 H Carbon Dioxide 21 L Creatinine Glucose 125 H POC Glucose 189 H Magnesium Ferritin AST 64 H Lactate Dehydrogenase C-Reactive Protein Albumin 2.8 L Arterial Blood Glucose 275 H Arterial Blood Ionized Calcium 4.5 L Ur Specific [place] Coronavirus (PCR) 03/30/21 03/31/21 03/31/21 06:07 07:38 07:38 WBC 11.8 H RDW 15.4 H Plt Count Lymph % (Auto) 2.4 L [place] % (Auto) 8.4 H Lymph # (Auto) 0.3 L [place] # (Auto) 1.0 H Seg Neutrophils % 89.0 H Seg Neutrophils # 10.5 H APTT D-Dimer > 21639 H ABG pH POC ABG pO2 ABG Oxyhemoglobin ABG Glucose Carbon Dioxide Creatinine Glucose 131 H POC Glucose Magnesium Ferritin AST 49 H Lactate Dehydrogenase C-Reactive Protein Albumin 2.7 L Arterial Blood Glucose Arterial Blood Ionized Calcium Ur Specific [place] Coronavirus (PCR) 03/31/21 03/31/21 07:38 07:38 WBC RDW Plt Count Lymph % (Auto) [place] % (Auto) Lymph # (Auto) [place] # (Auto) Seg Neutrophils % Seg Neutrophils # APTT D-Dimer ABG pH POC ABG pO2 ABG Oxyhemoglobin ABG Glucose Carbon Dioxide Creatinine 0.7 L Glucose 122 H POC Glucose Magnesium Ferritin 1419.0 H AST 42 H Lactate Dehydrogenase 752 H C-Reactive Protein 4.40 H Albumin 2.9 L Arterial Blood Glucose Arterial Blood Ionized Calcium Ur Specific [place] Coronavirus (PCR) Chest x-ray: report reviewed, image reviewed CT scan - chest: report reviewed, image reviewed Additional Studies: CHEST 1 VIEW 03/28/21 INDICATION: hypoxia, sob. COMPARISON: 03/26/2021 FINDINGS: Support devices: None. Heart: Stable borderline to mild cardiomegaly Lungs/Pleura: Stable mild perihilar prominence. No consolidation, pleural effusion or pneumothorax. Additional findings: None. IMPRESSION: No significant interval change. CTA CHEST WITH IV CONTRAST INDICATION: sob, hypoxia omni 350 100 ml CONTRAST: 100 cc Omnipaque 350 IV COMPARISON: Portable chest x-ray today Three-plane MIP reconstructions were produced. All CT scans at this location are performed using CT dose reduction for ALARA by means of automated exposure control. FINDINGS: No significant axillary or chest wall lesions are seen. Visualized portions of the upper abdomen show mild fatty infiltration of the liver but no acute abnormalities. No pleural effusions are seen. No mediastinal or hilar masses are noted. A small amount of thymic tissue is seen without obvious mass effect probably is not significant. No obvious endobronchial lesions are seen. Posterior to the lower trachea at the medial pleural margin of the right upper lobe along the mediastinal surface, a small elongated collection of air is seen with a transverse width of only 9 mm which possibly could represent a minimal loculated collection of air in the pleural space but could be unusual peripheral bullous change. No generalized pneumothorax or pneumomediastinum are seen. Prominent bilateral mostly interstitial pulmonary infiltrates are seen in a patchy mosaic type pattern highly likely to represent viral pneumonitis. No discrete pulmonary masses or nodules are seen though there are a few scattered areas of denser somewhat rounded consolidation within the areas of groundglass type infiltrate. All lobes are affected, most heavily involving the lower lobes. Aorta shows no aneurysmal dilatation or evidence of dissection. Good opacification of the pulmonary arterial system was achieved. I do not see evidence of pulmonary thromboembolism. IMPRESSION: 1. No evidence of pulmonary thromboembolism 2. Extensive bilateral pneumonitis, probably viral
--- NOTE | 2021-03-31 17:14 | Consultation ---
History of Present Illness Consult date: 03/31/21 Reason for consult: dyspnea, cough History of present illness: 66-year-old male with past medical history of hypertension, congestive heart failure, NV 18 years ago presenting for complaint of shortness of breath of onset last Friday. Patient was seen and evaluated at our emergency department 2 days ago for similar symptoms. He was believed to have symptoms consistent with Covid 19 viral illness . He was discharged with prescriptions f or Tessalon Perles and albuterol nebulizer and instructed to obtain outpatient COVID-19 testing. Patient states that over the course the last 2 days his symptoms progressively worsened. He had associated symptoms of fever, dry cough, poor p.o. intake, diarrhea and generalized weakness. Medications prescribed 2 days ago did not relieve symptoms. When patient had near syncopal event, who is a charge auditor at our facility recommended he come back to our hospital to be evaluated and treated. On arrival patient was found to be hypoxic with saturations of 80%. This improved to 93% on my encounter, patient was on 4 L nasal cannula. Of note he does have a history of congestive heart failure. 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 Pabon from [facility]. He did not know what his ejection fraction was but did state he is currently taking Entresto and Coreg for his congestive heart failure. Moreover, patient has been vaccinated against COVID-19 receiving in both doses of the Pfizer vaccine back in . He denied any known sick contacts except for his who had similar symptoms but recovered uneventfully. She was not tested but is vaccinated against COVID-19. Patient has no history of smoking, alcohol or drug abuse. 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 ED Course: Azithromycin IV, Rocephin IV, Decadron IV, albuterol nebulizer Patient alert, awake at this time. Patient is on high flow O2 15 litres. BIPAP stand by in the room. O2 saturation 97%. ABG on 100% FIO2 ABG pH 7.264 (7.320-7.450) L 03/29/21 20:03 POC ABG pCO2 42.0 mmHg (32.0-48.0) 03/29/21 20:03 POC ABG pO2 51.4 mmHg (83-108) L 03/29/21 20:03 POC ABG HCO3 18.6 03/29/21 20:03 ABG O2 Saturation 78.9 (0-100) 03/29/21 20:03 PT/INR, D-dimer Denies chest pain, shortness of breath. Has some non productive cough. Patient afebrile. Has mild leukocytosis. Blood pressure 137/78, Pulse 90. Chest xray done 03/28/21 reported Stable mild perihilar prominence. No consolid ation, pleural effusion or pneumothorax. Patient has Angio CT of chest 03/28/21 reported No evidence of pulmonary thromboembolism . Extensive bilateral pneumonitis, probably viral . Patient presently on I/V solumedrol, Ceftriaxone, Zithromax, S/C Lovenox, Famotidine, Albuterol inhaler and Budesonide aerosol treatments. Past History Past Medical History: acute NV, CAD, heart failure, hypertension, hyperlipidemia Past Surgical History: Other (Foot Tendon Repair/Tenotomy/Tenolysis - Date: 01/14/2019) Social history: , lives with family, smoking (former) Family history: no significant family history Medications and Allergies Allergies Allergy/AdvReac Type Severity Reaction Status Date / Time No Known Allergies Allergy Verified 03/28/21 07:20 Home Medications Medication Instructions Recorded Confirmed Last Taken Type Albuterol Sulfate [Proventil Hfa] 6.7 gm IH 4XD #1 hfa.aer.ad 03/26/21 03/28/21 Unknown Rx Benzonatate [Tessalon Perles] 100 mg PO Q8HR #20 capsule 03/26/21 03/28/21 Unknown Rx Coreg 12.5 mg PO BID 03/28/21 03/28/21 Unknown History Entresto 97 mg-103 mg Tablet 1 tab PO BID 03/28/21 03/28/21 Unknown History Gabapentin 300 mg PO DAILY 03/28/21 03/28/21 Unknown History Leflunomide 20 mg PO DAILY 03/28/21 03/28/21 Unknown History Simvastatin 20 mg PO HS 03/28/21 03/28/21 Unknown History Active Meds: Active Medications Acetaminophen (Acetaminophen 325 Mg Tab) 650 mg PO Q4H PRN PRN Reason: Pain MILD(1-3)/Fever >100.5/MIRANDA Albuterol (Albuterol 2.5 Mg/3 Ml Nebu) 2.5 mg IH TIDRT [facility] Last Admin: 03/30/21 20:57 Dose: Not Given Documented by: Aspirin (Aspirin 81 Mg Tab Chew) 81 mg PO QDAY [facility] Last Admin: 03/31/21 09:39 Dose: 81 mg Documented by: Benzonatate (Benzonatate 100 Mg Cap) 100 mg PO Q8HR [facility] Last Admin: 03/31/21 14:41 Dose: 100 mg Documented by: Budesonide (Budesonide 0.5 Mg/2 Ml Nebu) 0.5 mg IH BID [facility] Last Admin: 03/31/21 03:39 Dose: Not Given Documented by: Carvedilol (Carvedilol 25 Mg Tab) 25 mg PO Q12HR [facility] Last Admin: 03/31/21 09:39 Dose: 25 mg Documented by: Enoxaparin Sodium (Enoxaparin 40 Mg/0.4 Ml Inj) 40 mg SUB-Q DAILY [facility]; Protocol Last Admin: 03/31/21 09:39 Dose: 40 mg Documented by: Gabapentin (Gabapentin 300 Mg Cap) 300 mg PO QPM [facility] Last Admin: 03/30/21 19:18 Dose: 300 mg Documented by: Ceftriaxone Sodium (Rocephin/Ns 1 Gm/50 Ml) 1 gm in 50 mls @ 100 mls/hr IV Q24H [facility]; Protocol Last Admin: 03/31/21 09:39 Dose: 100 mls/hr Documented by: Azithromycin (Zithromax/Ns) 500 mg in 250 mls @ 250 mls/hr IV Q24H [facility] Last Admin: 03/31/21 09:39 Dose: 250 mls/hr Documented by: Labetalol HCl (Labetalol 20 Mg/4 Ml Inj) 10 mg IV Q6HR PRN PRN Reason: sbp > 160, hold for hr < 70 Methylprednisolone Sodium Succinate (Methylprednisolone Sod Succinate 125 Mg/2 Ml Inj) 60 mg IV Q6HR [facility] Stop: 04/08/21 14:00 Miscellaneous Medication (Leflunomide) 20 mg PO DAILY [facility] Ondansetron HCl (Ondansetron 4 Mg/2 Ml Inj) 4 mg IV Q8H PRN PRN Reason: Nausea And Vomiting Oxycodone/Acetaminophen (Oxycodone /Acetaminophen 5-325mg Tab) 1 tab PO Q6H PRN PRN Reason: Pain, Moderate (4-6) Pravastatin Sodium (Pravastatin 40 Mg Tab) 40 mg PO QHS [facility] Last Admin: 03/30/21 23:22 Dose: 40 mg Documented by: Sodium Chloride (Sodium Chloride 0.9% 10 Ml Flush Syringe) 10 ml IV BID [facility] Last Admin: 03/31/21 09:40 Dose: 10 ml Documented by: Sodium Chloride (Sodium Chloride 0.9% 10 Ml Flush Syringe) 10 ml IV PRN PRN PRN Reason: LINE FLUSH Sodium Chloride (Sodium Chloride 0.9% 50 Ml Ivpb) 50 ml IV Q24HR@2100 [facility] Stop: 04/02/21 21:01 Last Admin: 03/30/21 21:00 Dose: Not Given Documented by: Review of Systems All systems: negative Physical Examination Vital signs: Vital Signs Temp Pulse Resp BP Pulse Ox 98.5 F 110 H 22 99/81 80 L 03/28/21 07:27 03/28/21 07:27 03/28/21 07:27 03/28/21 07:27 03/28/21 07:27 General appearance: no acute distress, alert Eyes: non-icteric ENT: oropharynx moist Neck: supple, no lymphadenopathy Effort: mildly labored Ascultation: Bilateral: rhonchi Cardiovascular: regular rate and rhythm Gastrointestinal: normoactive bowel sounds, soft, non-tender Integumentary: normal Extremities: no cyanosis, no edema Musculoskeletal: no deformities Gait: other (Resting in bed at this time.) normal mental status, non-focal exam, pupils equal and round mood appropriate, affect normal Results - Laboratory Findings CBC and BMP: 03/31/21 07:38 03/31/21 07:38 ABG ABG pH 7.264 (7.320-7.450) L 03/29/21 20:03 POC ABG pCO2 42.0 mmHg (32.0-48.0) 03/29/21 20:03 POC ABG pO2 51.4 mmHg (83-108) L 03/29/21 20:03 POC ABG HCO3 18.6 03/29/21 20:03 ABG O2 Saturation 78.9 (0-100) 03/29/21 20:03 PT/INR, D-dimer PT 13.2 Sec. (12.2-14.9) 03/28/21 Unknown INR 0.95 (0.87-1.13) 03/28/21 Unknown D-Dimer > 89981 ng/mlDDU (0-234) H 03/31/21 07:38 Abnormal lab findings: Abnormal Labs 03/28/21 03/28/21 03/28/21 08:26 09:25 09:25 WBC RDW Plt Count Lymph % (Auto) [place] % (Auto) Lymph # (Auto) [place] # (Auto) Seg Neutrophils % Seg Neutrophils # APTT D-Dimer 1100.30 H ABG pH POC ABG pO2 ABG Oxyhemoglobin ABG Glucose Carbon Dioxide Creatinine Glucose 109 H POC Glucose Magnesium 2.40 H Ferritin AST Lactate Dehydrogenase 677 H C-Reactive Protein 13.70 H Albumin Arterial Blood Glucose Arterial Blood Ionized Calcium Ur Specific [place] Coronavirus (PCR) 03/28/21 03/28/21 03/28/21 09:25 Unknown Unknown WBC RDW Plt Count 96 L Lymph % (Auto) 7.2 L [place] % (Auto) 10.8 H Lymph # (Auto) 0.5 L [place] # (Auto) Seg Neutrophils % 81.8 H Seg Neutrophils # APTT D-Dimer ABG pH POC ABG pO2 ABG Oxyhemoglobin ABG Glucose Carbon Dioxide Creatinine Glucose POC Glucose Magnesium Ferritin 1340.0 H AST Lactate Dehydrogenase C-Reactive Protein Albumin Arterial Blood Glucose Arterial Blood Ionized Calcium Ur Specific [place] 1.038 H Coronavirus (PCR) 03/28/21 03/28/21 03/28/21 Unknown Unknown Unknown WBC RDW Plt Count Lymph % (Auto) [place] % (Auto) Lymph # (Auto) [place] # (Auto) Seg Neutrophils % Seg Neutrophils # APTT 38.7 H D-Dimer ABG pH POC ABG pO2 ABG Oxyhemoglobin ABG Glucose Carbon Dioxide Creatinine Glucose 120 H POC Glucose Magnesium Ferritin AST 73 H Lactate Dehydrogenase C-Reactive Protein Albumin 3.4 L Arterial Blood Glucose Arterial Blood Ionized Calcium Ur Specific [place] Coronavirus (PCR) Positive A 03/29/21 03/29/21 03/29/21 02:30 02:30 02:30 WBC RDW 15.4 H Plt Count 107 L Lymph % (Auto) 5.6 L [place] % (Auto) 10.0 H Lymph # (Auto) 0.4 L [place] # (Auto) Seg Neutrophils % 84.2 H Seg Neutrophils # APTT D-Dimer ABG pH POC ABG pO2 ABG Oxyhemoglobin ABG Glucose Carbon Dioxide Creatinine Glucose 128 H POC Glucose Magnesium 2.60 H Ferritin AST 64 H Lactate Dehydrogenase C-Reactive Protein Albumin 3.1 L Arterial Blood Glucose Arterial Blood Ionized Calcium Ur Specific [place] Coronavirus (PCR) 03/29/21 03/29/21 03/29/21 15:30 19:48 20:03 WBC RDW Plt Count Lymph % (Auto) [place] % (Auto) Lymph # (Auto) [place] # (Auto) Seg Neutrophils % Seg Neutrophils # APTT D-Dimer ABG pH 7.264 L POC ABG pO2 51.4 L ABG Oxyhemoglobin 77.6 L ABG Glucose 275 H Carbon Dioxide 21 L Creatinine Glucose 125 H POC Glucose 189 H Magnesium Ferritin AST 64 H Lactate Dehydrogenase C-Reactive Protein Albumin 2.8 L Arterial Blood Glucose 275 H Arterial Blood Ionized Calcium 4.5 L Ur Specific [place] Coronavirus (PCR) 03/30/21 03/31/21 03/31/21 06:07 07:38 07:38 WBC 11.8 H RDW 15.4 H Plt Count Lymph % (Auto) 2.4 L [place] % (Auto) 8.4 H Lymph # (Auto) 0.3 L [place] # (Auto) 1.0 H Seg Neutrophils % 89.0 H Seg Neutrophils # 10.5 H APTT D-Dimer > 25203 H ABG pH POC ABG pO2 ABG Oxyhemoglobin ABG Glucose Carbon Dioxide Creatinine Glucose 131 H POC Glucose Magnesium Ferritin AST 49 H Lactate Dehydrogenase C-Reactive Protein Albumin 2.7 L Arterial Blood Glucose Arterial Blood Ionized Calcium Ur Specific [place] Coronavirus (PCR) 03/31/21 03/31/21 07:38 07:38 WBC RDW Plt Count Lymph % (Auto) [place] % (Auto) Lymph # (Auto) [place] # (Auto) Seg Neutrophils % Seg Neutrophils # APTT D-Dimer ABG pH POC ABG pO2 ABG Oxyhemoglobin ABG Glucose Carbon Dioxide Creatinine 0.7 L Glucose 122 H POC Glucose Magnesium Ferritin 1419.0 H AST 42 H Lactate Dehydrogenase 752 H C-Reactive Protein 4.40 H Albumin 2.9 L Arterial Blood Glucose Arterial Blood Ionized Calcium Ur Specific [place] Coronavirus (PCR) - Diagnostic Findings Chest x-ray: report reviewed, image reviewed CT scan - chest: report reviewed, image reviewed Additional studies: CHEST 1 VIEW 03/28/21 INDICATION: hypoxia, sob. COMPARISON: 03/26/2021 FINDINGS: Support devices: None. Heart: Stable borderline to mild cardiomegaly Lungs/Pleura: Stable mild perihilar prominence. No consolidation, pleural effusion or pneumothorax. Additional findings: None. IMPRESSION: No significant interval change. CTA CHEST WITH IV CONTRAST 03/28/21 INDICATION: sob, hypoxia omni 350 100 ml CONTRAST: 100 cc Omnipaque 350 IV COMPARISON: Portable chest x-ray today Three-plane MIP reconstructions were produced. All CT scans at this location are performed using CT dose reduction for ALARA by means of automated exposure control. FINDINGS: No significant axillary or chest wall lesions are seen. Visualized portions of the upper abdomen show mild fatty infiltration of the liver but no acute abnormalities. No pleural effusions are seen. No mediastinal or hilar masses are noted. A small amount of thymic tissue is seen without obvious mass effect probably is not significant. No obvious endobronchial lesions are seen. Posterior to the lower trachea at the medial pleural margin of the right upper lobe along the mediastinal surface, a small elongated collection of air is seen with a klein sverse width of only 9 mm which possibly could represent a minimal loculated collection of air in the pleural space but could be unusual peripheral bullous change. No generalized pneumothorax or pne umomediastinum are seen. Prominent bilateral mostly interstitial pulmonary infiltrates are seen in a patchy mosaic type pattern highly likely to represent viral pneumonitis. No discrete pulmonary masses or nodules are seen though there are a few scattered areas of denser somewhat rounded con solidation within the areas of groundglass type infiltrate. All lobes are affected, most heavily in volving the lower lobes. Aorta shows no aneurysmal dilatation or evidence of dissection. Good opacification of the pulmonary arterial system was achieved. I do not see evidence of pulmonary thromboembolism. IMPRESSION: 1. No evidence of pulmonary thromboembolism 2. Extensive bilateral pneumonitis, probably viral Assessment and Plan 66-year-old male with past medical history of hypertension, congestive heart failure, NV 18 years ago presenting for complaint of shortness of breath of onset last Friday. Patient was seen and evaluated at our emergency department 2 days ago for similar symptoms. He was believed to have symptoms consistent with Covid 19 viral illness . He was discharged with prescriptions for Tessalon Perles and albuterol nebulizer and instructed to obtain outpatient COVID-19 testing. Patient states that over the course the last 2 days his symptoms progressively worsened. He had associated symptoms of fever, dry cough, poor p.o. intake, diarrhea and generalized weakness. Medications prescribed 2 days ago did not relieve symptoms. When patient had near syncopal event, who is a charge auditor at our facility recommended he come back to our hospital to be evaluated and treated. On arrival patient was found to be hypoxic with saturations of 80%. This improved to 93% on my encounter, patient was on 4 L nasal cannula. Of note he does have a history of congestive heart failure. 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 Pabon from [facility]. He did not know what his ejection fraction was but did state he is currently taking Entresto and Coreg for his congestive heart failure. Moreover, patient has been vaccinated against COVID-19 receiving in both doses of the [employer] vaccine back in . He denied any known sick contacts except for his who had similar symptoms but recovered uneventfully. She was not tested but is vaccinated against COVID-19. Patient has no history of smoking, alcohol or drug abuse. 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 ED Course: Azithromycin IV, Rocephin IV, Decadron IV, albuterol nebulizer Patient alert, awake at this time. Patient is on high flow O2 15 litres. BIPAP stand by in the room. O2 saturation 97%. ABG on 100% FIO2 ABG pH 7.264 (7.320-7.450) L 03/29/21 20:03 POC ABG pCO2 42.0 mmHg (32.0-48.0) 03/29/21 20:03 POC ABG pO2 51.4 mmHg (83-108) L 03/29/21 20:03 POC ABG HCO3 18.6 03/29/21 20:03 ABG O2 Saturation 78.9 (0-100) 03/29/21 20:03 PT/INR, D-dimer Denies chest pain, shortness of breath. Has some non productive cough. Patient afebrile. Has mild leukocytosis. Blood pressure 137/78, Pulse 90. Chest xray done 03/28/21 reported Stable mild perihilar prominence. No consolidation, pleural effusion or pneumothorax. Patient has Angio CT of chest 03/28/21 reported No evidence of pulmonary thromboembolism . Extensive bilateral pneumonitis, probably viral . Patient presently on I/V solumedrol, Ceftriaxone, Zithromax, S/C Lovenox, Famotidine, Albuterol inhaler and Budesonide aerosol treatments. I spent critical care time of 40 minutes on this patient, obtaining history, review the chart, examining the patient, review Chest xray, CTA of chest, review the labs, talking to the nursing and respiratory staff and work out plan of treatment in this critically ill COVID 19 Patient with COVID pneumonia and Acute hypoxic respiratory failure. - Patient Problems (1) Acute respiratory failure with hypoxia Current Visit: Yes Status: Acute Plan to address problem: High flow O2. Recommend Vapotherm with 100% FIO2. If not on Vapotherm recommend BIPAP 20/10, rate 20, FIO2 100%. Continue I/V solumedrol Continue Albuterol inhaler Continue S/C Lovenox. Continue famotidine. (2) COVID-19 virus infection Current Visit: Yes Status: Acute Plan to address problem: Patient is on I/V Solumedrol. S/C Lovenox. Management as per infectious diseases. (3) Pneumonia due to COVID-19 virus Current Visit: Yes Status: Acute Plan to address problem: Patient is on ceftriaxone and Zithromax. (4) CAD (coronary artery disease) Current Visit: Yes Status: Acute Plan to address problem: Management as per cardiology. (5) HFrEF (heart failure with reduced ejection fraction) Current Visit: Yes Status: Acute Plan to address problem: Management as per cardiology. (6) HTN (hypertension) Current Visit: Yes Status: Acute Plan to address problem: Management as per primary care.
[2021-03-31] MEDS: methylPREDNISolone Sod Succinate 125 MG/2 ML INJ IV SCH ×2 (18:17→23:04)
[2021-03-31] MEDS: GABAPENTIN 300 MG CAP PO SCH (18:18)
--- NOTE | 2021-03-31 18:25 | Progress Note ---
Assessment and Plan Cultures: SARS CoV2 PCR: Positive 03/28/2021 blood culture: No growth A/P: 58-year-old male with hypertension, CHF, CAD admitted with cough, fever, shortness of breath, generalized weakness along with some loose stools: #Bilateral pneumonia: Secondary to COVID-19. Breakthrough infection. Vacci nated against COVID-19 with Pfizer back in Aug 2020. CTA negative for pulmonary thromboembolism, showed bilateral extensive pneumonitis. Elevated markers. Allergic reaction to remdesivir, hence stopped after 1st dose. #Acute hypoxic respiratory failure: Requiring salter nasal cannula. #Transaminitis: Likely secondary to COVID-19. #Thrombocytopenia #Rheumatoid arthritis, immunocompromised host: On leflunomide. #CHF Recs: continue IV/PO Dexamethasone x 10 days Allergic reaction to remdesivir, hence stopped after 1st dose if requiring HFNC >30 L/min, given elevated CRP, would meet criteria for Actemra prophylactic anticoagulation based on d-dimer per hospital protocol continue empiric abx (Ceftriaxone x 5 days and azithromycin x 3 days) due to mildly elevated procalcitonin, immunocompromised trend ferritin, d-dimer, CRP every 2-3 days Tessie Camp MD [facility] O: [phone] F: [phone] Subjective Date of service: 03/31/21 Principal diagnosis: COVID-19 PNA Interval history: Afebrile, white count 11.8. On 15 L salter Imaging personally reviewed: Chest x-ray: No significant change in bilateral pulmonary opacities. Objective - Exam Narrative Exam: Physical exam deferred to reduce risk of transmission of COVID-19. Please refer to primary team's note. - Constitutional Vitals: Vital Signs Temp Pulse Resp BP Pulse Ox 98.0 F 92 H 19 142/83 90 03/31/21 16:35 03/31/21 16:36 03/31/21 16:35 03/31/21 16:35 03/31/21 16:36 Temperature -Last 24 Hours Temperature 98.0 F Temperature 98.2 F Temperature 98.4 F - Labs CBC & Chem 7: 03/31/21 07:38 03/31/21 07:38 Labs: Abnormal lab results 03/31/21 03/31/21 03/31/21 Range/Units 07:38 07:38 07:38 WBC 11.8 H (4.5-11.0) K/mm3 RDW 15.4 H (13.2-15.2) % Lymph % (Auto) 2.4 L (13.4-35.0) % [place] % (Auto) 8.4 H (0.0-7.3) % Lymph # (Auto) 0.3 L (1.2-5.4) K/mm3 [place] # (Auto) 1.0 H (0.0-0.8) K/mm3 Seg Neutrophils % 89.0 H (40.0-70.0) % Seg Neutrophils # 10.5 H (1.8-7.7) K/mm3 D-Dimer > 86888 H (0-234) ng/mlDDU Creatinine 0.7 L (0.8-1.3) mg/dL Glucose 122 H (75-100) mg/dL Ferritin (30.0-300.0) ng/mL AST 42 H (5-40) units/L Lactate Dehydrogenase 752 H (91-180) units/L C-Reactive Protein 4.40 H (0.00-1.30) mg/dL Albumin 2.9 L (3.9-5) g/dL 03/31/21 Range/Units 07:38 WBC (4.5-11.0) K/mm3 RDW (13.2-15.2) % Lymph % (Auto) (13.4-35.0) % [place] % (Auto) (0.0-7.3) % Lymph # (Auto) (1.2-5.4) K/mm3 [place] # (Auto) (0.0-0.8) K/mm3 Seg Neutrophils % (40.0-70.0) % Seg Neutrophils # (1.8-7.7) K/mm3 D-Dimer (0-234) ng/mlDDU Creatinine (0.8-1.3) mg/dL Glucose (75-100) mg/dL Ferritin 1419.0 H (30.0-300.0) ng/mL AST (5-40) units/L Lactate Dehydrogenase (91-180) units/L C-Reactive Protein (0.00-1.30) mg/dL Albumin (3.9-5) g/dL
[2021-03-31] MEDS: PRAVASTATIN 40 MG TAB PO SCH (21:35)
[2021-04-01] MEDS: methylPREDNISolone Sod Succinate 125 MG/2 ML INJ IV SCH ×4 (00:36→17:42)
[2021-04-01] MEDS: BENZONATATE 100 MG CAP PO SCH ×3 (06:06→21:48)
--- NOTE | 2021-04-01 07:35 | Progress Note ---
Assessment and Plan Assessment and plan: 58-year-old male with past medical history of hypertension, congestive heart failure, [place] 18 years ago presenting for complaint of shortness of breath of onset last Friday. Patient states that over the course the last 2 days his symptoms progressively worsened. He had associated symptoms of fever, dry cough, poor p.o. intake, diarrhea and generalized weakness. Ongoing evaluation and treatment for covid pneumonia Hospital Course: 03/29/2021: Cardiology evaluated patient due to 5 beats NSVT. Increased coreg, continue entresto. Patient follows with Dr Martinez. ID evaluated patient, Remdesivir started. Will continue supportive care. 03/30/2021: Respiratory distress overnight. LIkely an allergic reaction to remdesivir. Remdesivir has since been discontinued. Was on BIPAP on encounter and has since been dropped to 15 l/min salter nc. Continue supportive management. Will order inflammatory markers. 03/31/2021: Remains on salter nc 15l /min. sats 88-90% but in no distress. Continue supporitve management. Increased steroids to 60 q6hr. Obtained Pulmonology consult. CXR ordered, will follow. 04/01/2021: Remains on salter nc 12l /min. sats 88-90% but in no distress. Titrate down O2 requirements, ok with sats > 88%. Continue supporitve management. Lasix 20 mg IV x 1 ordered. Assessment and Plan: 1. Acute hypoxic respiratory failure -Symptoms of shortness of breath, dry cough, fever, decreased appetite. High suspicion for Covid PNA. -Febrile 101.4 F, elevated inflammatory markers on admission -CTA chest: Negative for PE, findings consistent with bilateral viral pneumonia. Please refer to official radiology report ED course: Azithromycin IV, Rocephin IV, Decadron IV, albuterol nebulizer -Supplemental oxygen via nasal cannula, de-escalate as patient tolerates Covid therapies as below Albuterol and budesonide inhalers ordered 2. Suspected COVID-19 infection -Patient was vaccinated. Received both doses of Pfizer vaccine back in had similar symptoms however she recovered uneventfully Empiric antibiotic coverage with azithromycin IV, Rocephin IV. Procalcitonin ordered, will follow -Decadron 8 mg IV daily x10 days total therapy -DVT prophylaxis dosing Lovenox May be a candidate for Remdesivir however transaminitis noted. Will defer to ID. May be a candidate for Actemra , elevated CRP Infectious disease consulted 3. Sepsis Suspect viral pneumonia as source, temp 101.4F, tachycardic 111 bpm Blood cultures ordered in emergency department 4. Transaminitis -Elevated AST to 73. Likely due to underlying Covid viral illness May be a candidate for remdesivir as it is not greater than 4 times upper limit of normal 5. Chronic congestive heart failure -Resume home coreg, entresto -coreg increased by cardiology 6. Essential hypertension -Resume home coreg, entresto 7. Hyperlipidemia - resume home simvastatin 8. History of Rheumatoid Arthritis - resume home leflunamide 9. Peripheral neuropathy - resume home gabapentin History Interval history: Patient saturations 88-90% on salter nc 12L however he denies any distress. Discussed with RN dose of lasix. Hospitalist Physical - Physical exam Narrative exam: Physical Exam: Constitutional: Alert, cooperative. No acute distress. On salter nc 12L/min Head, Ears, Nose: Normocephalic, atraumatic. External ears, nose normal Eyes: Conjunctivae/corneas clear. No icterus. No ptosis. Neck: Supple, no meningeal signs Oral: dentition fair, no thrush Cardiovascular: S1, S2 normal. Respiratory: Good air entry, bilateral rhonchi GI: Soft, non-tender; bowel sounds normal. No peritoneal signs. Musculoskeletal: No pedal edema, no cyanosis. Skin: No rash or abscess, see nursing assessment for full skin exam Hem/Lymphatic: No palpable cervical or supraclavicular nodes. No lymphangitis Psych: Mood ok. Affect normal Neurological: Awake, alert, oriented. No gross abnormality - Constitutional Vitals: Temp Pulse Resp BP Pulse Ox 97.9 F 77 16 126/71 99 04/01/21 04:51 04/01/21 04:51 04/01/21 04:51 04/01/21 04:51 04/01/21 04:51 General appearance: Present: no acute distress HEART Score - HEART Score Troponin: Troponin T 0.013 ng/mL (0.00-0.029) 03/28/21 Unknown Results - Labs CBC & Chem 7: 03/31/21 07:38 03/31/21 07:38 Labs: Laboratory Last Values WBC 11.8 K/mm3 (4.5-11.0) H 03/31/21 07:38 RBC 4.34 M/mm3 (3.65-5.03) 03/31/21 07:38 Hgb 13.0 gm/dl (11.8-15.2) 03/31/21 07:38 Hct 38.8 % (35.5-45.6) 03/31/21 07:38 MCV 89 fl (84-94) 03/31/21 07:38 MCH 30 pg (28-32) 03/31/21 07:38 MCHC 34 % (32-34) 03/31/21 07:38 RDW 15.4 % (13.2-15.2) H 03/31/21 07:38 Plt Count 188 K/mm3 (140-440) 03/31/21 07:38 Lymph % (Auto) 2.4 % (13.4-35.0) L 03/31/21 07:38 [place] % (Auto) 8.4 % (0.0-7.3) H 03/31/21 07:38 Eos % (Auto) 0.0 % (0.0-4.3) 03/31/21 07:38 Baso % (Auto) 0.2 % (0.0-1.8) 03/31/21 07:38 Lymph # (Auto) 0.3 K/mm3 (1.2-5.4) L 03/31/21 07:38 [place] # (Auto) 1.0 K/mm3 (0.0-0.8) H 03/31/21 07:38 Eos # (Auto) 0.0 K/mm3 (0.0-0.4) 03/31/21 07:38 Baso # (Auto) 0.0 K/mm3 (0.0-0.1) 03/31/21 07:38 Seg Neutrophils % 89.0 % (40.0-70.0) H 03/31/21 07:38 Seg Neutrophils # 10.5 K/mm3 (1.8-7.7) H 03/31/21 07:38 PT 13.2 Sec. (12.2-14.9) 03/28/21 Unknown INR 0.95 (0.87-1.13) 03/28/21 Unknown APTT 38.7 Sec. (24.2-36.6) H 03/28/21 Unknown D-Dimer > 86235 ng/mlDDU (0-234) H 03/31/21 07:38 ABG pH 7.264 (7.320-7.450) L 03/29/21 20:03 POC ABG pCO2 42.0 mmHg (32.0-48.0) 03/29/21 20:03 POC ABG pO2 51.4 mmHg (83-108) L 03/29/21 20:03 POC ABG HCO3 18.6 03/29/21 20:03 ABG O2 Saturation 78.9 (0-100) 03/29/21 20:03 POC ABG Base Excess -8.0 03/29/21 20:03 ABG Hemoglobin 15.1 (12.0-17.5) 03/29/21 20:03 ABG Oxyhemoglobin 77.6 (94-98) L 03/29/21 20:03 ABG Methemoglobin 0.2 (0.0-1.5) 03/29/21 20:03 ABG Sodium 136.8 mmol/L (136.0-145.0) 03/29/21 20:03 ABG Potassium 4.0 mmol/L (3.40-4.50) 03/29/21 20:03 ABG Chloride 104.0 mmol/L (98-107) 03/29/21 20:03 ABG Glucose 275 mg/dL (65-95) H 03/29/21 20:03 Carboxyhemoglobin 1.5 (0.5-1.5) 03/29/21 20:03 FiO2 % 100.0 03/29/21 20:03 Sodium 137 mmol/L (137-145) 03/31/21 07:38 Potassium 3.6 mmol/L (3.6-5.0) 03/31/21 07:38 Chloride 102.5 mmol/L (98-107) 03/31/21 07:38 Carbon Dioxide 26 mmol/L (22-30) 03/31/21 07:38 Anion Gap 12 mmol/L 03/31/21 07:38 BUN 19 mg/dL (9-20) 03/31/21 07:38 Creatinine 0.7 mg/dL (0.8-1.3) L 03/31/21 07:38 Estimated GFR > 60 ml/min 03/31/21 07:38 BUN/Creatinine Ratio 27 % 03/31/21 07:38 Glucose 122 mg/dL (75-100) H 03/31/21 07:38 POC Glucose 189 mg/dL (70-105) H 03/29/21 19:48 Lactic Acid 1.60 mmol/L (0.7-2.0) 03/28/21 Unknown Calcium 8.7 mg/dL (8.4-10.2) 03/31/21 07:38 Magnesium 2.60 mg/dL (1.7-2.3) H 03/29/21 02:30 Ferritin 1419.0 ng/mL (30.0-300.0) H 03/31/21 07:38 Total Bilirubin 0.80 mg/dL (0.1-1.2) 03/31/21 07:38 AST 42 units/L (5-40) H 03/31/21 07:38 ALT 29 units/L (7-56) 03/31/21 07:38 Alkaline Phosphatase 63 units/L (35-129) 03/31/21 07:38 Lactate Dehydrogenase 752 units/L (91-180) H 03/31/21 07:38 Troponin T 0.013 ng/mL (0.00-0.029) 03/28/21 Unknown C-Reactive Protein 4.40 mg/dL (0.00-1.30) H 03/31/21 07:38 Total Protein 6.9 g/dL (6.3-8.2) 03/31/21 07:38 Albumin 2.9 g/dL (3.9-5) L 03/31/21 07:38 Albumin/Globulin Ratio 0.7 % 03/31/21 07:38 Procalcitonin 0.37 ng/mL (<0.15) 03/28/21 09:25 Arterial Blood Glucose 275 mg/dL (65-95) H 03/29/21 20:03 Arterial Blood Ionized Calcium 4.5 mg/dL (4.6-5.3) L 03/29/21 20:03 Urine Color [place] (Yellow) 03/28/21 Unknown Urine Turbidity Clear (Clear) 03/28/21 Unknown Urine pH 5.0 (5.0-7.0) 03/28/21 Unknown Ur Specific [place] 1.038 (1.003-1.030) H 03/28/21 Unknown Urine Protein >500 mg/dL (Negative) 03/28/21 Unknown Urine Glucose (UA) 50 mg/dL (Negative) 03/28/21 Unknown Urine Ketones Tr mg/dL (Negative) 03/28/21 Unknown Urine Blood Mod (Negative) 03/28/21 Unknown Urine Nitrite Neg (Negative) 03/28/21 Unknown Urine Bilirubin Neg (Negative) 03/28/21 Unknown Urine Urobilinogen 2.0 mg/dL (<2.0) 03/28/21 Unknown Ur Leukocyte Esterase Neg (Negative) 03/28/21 Unknown Urine WBC (Auto) 6.0 /HPF (0.0-6.0) 03/28/21 Unknown Urine RBC (Auto) 2.0 /HPF (0.0-6.0) 03/28/21 Unknown U Epithel Cells (Auto) < 1.0 /HPF (0-13.0) 03/28/21 Unknown Urine Mucus Few /HPF 03/28/21 Unknown Coronavirus (PCR) Positive (Negative) A 03/28/21 Unknown Microbiology: Microbiology 03/28/21 08:26 Peripheral/Venous Blood Culture - Preliminary NO GROWTH AFTER 72 HOURS 03/28/21 08:26 Peripheral/Venous Blood Culture - Preliminary NO GROWTH AFTER 72 HOURS [place]/IV: Voiding Method Urinal Active Medications - Current Medications Current Medications: Generic Name Dose Route Start Last Admin Trade Name Freq PRN Reason Stop Dose Admin Acetaminophen 650 mg 03/28/21 12:45 Acetaminophen 325 Mg Tab PO Q4H PRN Pain MILD(1-3)/Fever >100.5/MIRANDA Albuterol 2.5 mg 03/29/21 08:00 03/31/21 14:25 Albuterol 2.5 Mg/3 Ml Nebu IH Not Given TIDRT LISSETTE Aspirin 81 mg 03/29/21 10:00 03/31/21 09:39 Aspirin 81 Mg Tab Chew PO 81 mg QDAY LISSETTE Administration Benzonatate 100 mg 03/29/21 07:00 04/01/21 06:06 Benzonatate 100 Mg Cap PO 100 mg Q8HR LISSETTE Administration Budesonide 0.5 mg 03/28/21 14:00 03/31/21 10:24 Budesonide 0.5 Mg/2 Ml Nebu IH Not Given BID LISSETTE Carvedilol 25 mg 03/29/21 10:00 03/31/21 21:35 Carvedilol 25 Mg Tab PO 25 mg Q12HR LISSETTE Administration Enoxaparin Sodium 40 mg 03/28/21 14:00 03/31/21 09:39 Enoxaparin 40 Mg/0.4 Ml Inj SUB-Q 40 mg DAILY LISSETTE Administration Protocol Gabapentin 300 mg 03/29/21 18:00 03/31/21 18:18 Gabapentin 300 Mg Cap PO 300 mg QPM LISSETTE Administration Ceftriaxone Sodium 1 gm in 50 mls @ 100 mls/hr 03/29/21 10:00 03/31/21 21:35 Rocephin/Ns 1 Gm/50 Ml IV Infused Q24H LISSETTE Infusion Protocol Azithromycin 500 mg in 250 mls @ 250 mls/hr 03/29/21 10:00 03/31/21 09:39 Zithromax/Ns IV 250 mls/hr Q24H LISSETTE Administration Labetalol HCl 10 mg 03/28/21 15:34 Labetalol 20 Mg/4 Ml Inj IV Q6HR PRN sbp > 160, hold for hr < 70 Methylprednisolone Sodium Succinate 60 mg 03/31/21 18:00 04/01/21 06:07 Methylprednisolone Sod Succinate 125 Mg/2 Ml Inj IV 04/08/21 14:00 60 mg Q6HR LISSETTE Administration Miscellaneous Medication 20 mg 03/29/21 10:00 Leflunomide PO DAILY [facility] Ondansetron HCl 4 mg 03/28/21 12:45 Ondansetron 4 Mg/2 Ml Inj IV Q8H PRN Nausea And Vomiting Oxycodone/Acetaminophen 1 tab 03/28/21 12:45 03/31/21 17:05 Oxycodone /Acetaminophen 5-325mg Tab PO 1 tab Q6H PRN Administration Pain, Moderate (4-6) Pravastatin Sodium 40 mg 03/29/21 22:00 03/31/21 21:35 Pravastatin 40 Mg Tab PO 40 mg QHS LISSETTE Administration Sodium Chloride 10 ml 03/28/21 22:00 03/31/21 21:35 Sodium Chloride 0.9% 10 Ml Flush Syringe IV 10 ml BID LISSETTE Administration Sodium Chloride 10 ml 03/28/21 12:45 Sodium Chloride 0.9% 10 Ml Flush Syringe IV PRN PRN LINE FLUSH Sodium Chloride 50 ml 03/29/21 16:00 03/31/21 06:06 Sodium Chloride 0.9% 50 Ml Ivpb IV 04/02/21 21:01 50 ml Q24HR@2100 LISSETTE Administration Nutrition/Malnutrition Assess - Dietary Evaluation Nutrition/Malnutrition Findings: Nutrition Notes Start: 03/29/21 1 4:40 Freq: Status: Active Protocol: Document 03/29/21 14:40 GB (Rec: 03/29/21 14:49 GB [id number]) Nutrition Notes 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 Weight Status Obese Subjective/Other Information Admission notes report no change in weight, decrease in po intake related to decreased appetite and per H&P symptoms over past 2 days. Percent of energy/protein needs met: PO intake of 50% or greater of meals TID daily will meet 80% or greater of estimated energy needs. Burn Absent Trauma Absent GI Symptoms Diarrhea Food Allergy No Skin Integrity/Comment no reported skin complications Minimum of two criteria No #1 Nutrition Diagnosis Predicted suboptimal energy intake Comments: depending on duration and complications of possible covid and treatments Etiology SOB As Evidenced by Signs and Symptoms reported decreased PO r/t decreased appetite Is patient on ventilator? No Is Patient Ambulatory and/or Out of Bed Yes REE-([facility]-ambulatory/OOB) [ 1994.044 [id number]] Kcal/Kg value to use for calculation 22 Approximate Energy Requirements Using 1841 kcal/Kg Calculation Used for Recommendations Kcal/kg Additional Notes Protein: 0.8-1 g/kg @83k- 83g Fluids: 1 ml/kcal or per Nutrition Intervention Change Diet Order: continue Nutrition Support: n/a Add Supplement/Snack (indicate name/kcal Add supplement Ensure BID if /protein ) po intake of meals is less than 50%/day Goal #1 PO intake of meals to be 50% or greater TID daily for LOS Goal #2 Weight to maintain within +/-3 % current weight for LOS Follow-Up By: 04/03/21 Additional Comments nursing staff to monitor and record PO intake of meals daily.
[2021-04-01] MEDS: AZITHROMYCIN/NS 500 MG/250 ML 500 MG/250 ML BAG IV SCH (10:29)
[2021-04-01] MEDS: ENOXAPARIN 40 MG/0.4 ML INJ SUB-Q SCH (10:29)
[2021-04-01] MEDS: cefTRIAXone/NS 1 GM/50 ML 1 GM/50 ML BAG IV SCH (10:29)
[2021-04-01] MEDS: carvediloL 25 MG TAB PO SCH ×2 (10:30→21:48)
[2021-04-01] MEDS: ASPIRIN 81 MG TAB CHEW PO SCH (10:30)
[2021-04-01] MEDS: oxyCODONE /ACETAMINOPHEN 5-325MG TAB PO PRN (10:36)
[2021-04-01] MEDS: SACUBITRIL/VALSARTAN 49-51 MG TAB PO SCH ×2 (10:38→21:48)
[2021-04-01] MEDS ORDERED: FUROSEMIDE 40 MG/4 ML INJ IV ONE ×2 (11:07→14:00)
[2021-04-01 12:28] LABS: Alanine Aminotransferase 36 units/L (7-56); Albumin 3.2 g/dL (3.9-5); Blood Urea Nitrogen 17 mg/dL (9-20); Calcium 9.3 mg/dL (8.4-10.2); Hemolysis Index 41
[2021-04-01 12:29] LABS: BUN/Creatinine Ratio 24
[2021-04-01] MEDS: GABAPENTIN 300 MG CAP PO SCH (17:42)
--- NOTE | 2021-04-01 19:54 | Progress Note ---
Assessment and Plan 66-year-old male with past medical history of hypertension, congestive heart failure, [place] 18 years ago presenting for complaint of shortness of breath of onset last Friday. Patient was seen and evaluated at our emergency department 2 days ago for similar symptoms. He was believed to have symptoms consistent with Covid 19 viral illness . He was discharged with prescriptions for Tessalon Perles and albuterol nebulizer and instructed to obtain outpatient COVID-19 testing. Patient states that over the course the last 2 days his sym ptoms progressively worsened. He had associated symptoms of fever, dry cough, poor p.o. intake, diarrhea and generalized weakness. Medications prescribed 2 days ago did not relieve symptoms. When patient had near syncopal event, who is a devulcanizer charger at our facility recommended he come back to our hospital to be evaluated and treated. On arrival patient was found to be hypoxic with saturations of 80%. This improved to 93% on my encounter, patient was on 4 L nasal cannula. Of note he does have a history of congestive heart failure. 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 Pabon from [facility]. He did not know what his ejection fraction was but did state he is currently taking Entresto and Coreg for his congestive heart failure. Moreover, patient has been vaccinated against COVID-19 receiving in both doses of the Pfizer vaccine back in . He denied any known sick contacts except for his who had similar symptoms but recovered uneventfully. She was not tested but is vaccinated against COVID-19. Patient has no history of smoking, alcohol or drug abuse. 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 ED Course: Azithromycin IV, Rocephin IV, Decadron IV, albuterol nebulizer Patient sleepy but arousable.. Patient is still on high flow O2 15 litres. BIPAP stand by in the room. O2 saturation 91%. ABG on 100% FIO2 ABG pH 7.264 (7.320-7.450) L 03/29/21 20:03 POC ABG pCO2 42.0 mmHg (32.0-48.0) 03/29/21 20:03 POC ABG pO2 51.4 mmHg (83-108) L 03/29/21 20:03 POC ABG HCO3 18.6 03/29/21 20:03 ABG O2 Saturation 78.9 (0-100) 03/29/21 20:03 PT/INR, D-dimer Denies chest pain, shortness of breath. Has some non productive cough. Patient afebrile. Has mild leukocytosis. Blood pressure 126/71, Pulse 77 Chest xray done 03/28/21 reported Stable mild perihilar prominence. No consolidation, pleural effusion or pneumothorax. Patient has Angio CT of chest 03/28/21 reported No evidence of pulmonary thromboembolism . Extensive bilateral pneumonitis, probably viral . Patient presently on I/V solumedrol, Ceftriaxone, Zithromax, S/C Lovenox, Famotidine, Albuterol inhaler and Budesonide aerosol treatments. I spent critical care time of 35 minutes on this patient, review the chart, examining the patient, review Chest xray, CTA of chest, review the labs, talking to the nursing and respiratory staff and work out plan of treatment in this critically ill COVID 19 Patient with COVID pneumonia and Acute hypoxic respiratory failure. - Patient Problems (1) Acute respiratory failure with hypoxia Current Visit: Yes Status: Acute Plan to address problem: High flow O2. Recommend Vapotherm with 100% FIO2. If not on Vapotherm recommend BIPAP 20/10, rate 20, FIO2 100%. Continue I/V solumedrol Continue Albuterol inhaler Continue S/C Lovenox. Continue famotidine. (2) COVID-19 virus infection Current Visit: Yes Status: Acute Plan to address problem: Patient is on I/V Solumedrol. S/C Lovenox. Management as per infectious diseases. (3) Pneumonia due to COVID-19 virus Current Visit: Yes Status: Acute Plan to address problem: Patient is on ceftriaxone and Zithromax. (4) CAD (coronary artery disease) Current Visit: Yes Status: Acute Plan to address problem: Management as per cardiology. (5) HFrEF (heart failure with reduced ejection fraction) Current Visit: Yes Status: Acute Plan to address problem: Management as per cardiology. (6) HTN (hypertension) Current Visit: Yes Status: Acute Plan to address problem: Management as per primary care. Subjective Date of service: 04/01/21 Principal diagnosis: COVID-19 PNA Interval history: 66-year-old male with past medical history of hypertension, congestive heart failure, [place] 18 years ago presenting for complaint of shortness of breath of onset last Friday. Patient was seen and evaluated at our emergency department 2 days ago for similar symptoms. He was believed to have symptoms consistent with Covid 19 viral illness . He was discharged with prescriptions for Tessalon Perles and albuterol nebulizer and instructed to obtain outpatient COVID-19 testing. Patient states that over the course the last 2 days his symptoms progressively worsened. He had associated symptoms of fever, dry cou gh, poor p.o. intake, diarrhea and generalized weakness. Medications prescribed 2 days ago did not relieve symptoms. When patient had near syncopal event, who is a devulcanizer charger at our facility recommended he come back to our hospital to be evaluated and treated. On arrival patient was found to be hypoxic with saturations of 80%. This improved to 93% on my encounter, patient was on 4 L nasal cannula. Of note he does have a history of congestive heart failure. 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 Pabon from [facility]. He did not know what his ejection fraction was but did state he is currently taking Entresto and Coreg for his congestive heart failure. Moreover, patient has been vaccinated against COVID-19 receiving in both doses of the Pfizer vaccine back in . He denied any known sick contacts except for his who had similar symptoms but recovered uneventfully. She was not tested but is vaccinated against COVID-19. Patient has no history of smoking, alcohol or drug abuse. 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 ED Course: Azithromycin IV, Rocephin IV, Decadron IV, albuterol nebulizer Patient sleepy but arousable.. Patient is still on high flow O2 15 litres. BIPAP stand by in the room. O2 saturation 91%. ABG on 100% FIO2 ABG pH 7.264 (7.320-7.450) L 03/29/21 20:03 POC ABG pCO2 42.0 mmHg (32.0-48.0) 03/29/21 20:03 POC ABG pO2 51.4 mmHg (83-108) L 03/29/21 20:03 POC ABG HCO3 18.6 03/29/21 20:03 ABG O2 Saturation 78.9 (0-100) 03/29/21 20:03 PT/INR, D-dimer Denies chest pain, shortness of breath. Has some non productive cough. Patient afebrile. Has mild leukocytosis. Blood pressure 126/71, Pulse 77 Chest xray done 03/28/21 reported Stable mild perihilar prominence. No consolidation, pleural effusion or pneumothorax. Patient has Angio CT of chest 03/28/21 reported No evidence of pulmonary thromboembolism . Extensive bilateral pneumonitis, probably viral . Patient presently on I/V solumedrol, Ceftriaxone, Zithromax, S/C Lovenox, Famotidine, Albuterol inhaler and Budesonide aerosol treatments. Objective Vital Signs - 12hr 04/01/21 10:00 O2 Sat by Pulse 95 Oximetry Constitutional: no acute distress, other (Sleepy but arousable.) Eyes: non-icteric ENT: oropharynx moist Neck: supple, no lymphadenopathy Effort: mildly labored Ascultation: Bilateral: rhonchi Cardiovascular: regular rate and rhythm Gastrointestinal: normoactive bowel sounds, soft, non-tender Integumentary: normal Extremities: no cyanosis, no edema Neurologic: normal mental status, non-focal exam, pupils equal and round Psychiatric: mood appropriate, affect normal CBC and BMP: 03/31/21 07:38 04/01/21 06:37 ABG, PT/INR, D-dimer: ABG ABG pH 7.264 (7.320-7.450) L 03/29/21 20:03 POC ABG pCO2 42.0 mmHg (32.0-48.0) 03/29/21 20:03 POC ABG pO2 51.4 mmHg (83-108) L 03/29/21 20:03 POC ABG HCO3 18.6 03/29/21 20:03 ABG O2 Saturation 78.9 (0-100) 03/29/21 20:03 PT/INR, D-dimer PT 13.2 Sec. (12.2-14.9) 03/28/21 Unknown INR 0.95 (0.87-1.13) 03/28/21 Unknown D-Dimer > 23594 ng/mlDDU (0-234) H 03/31/21 07:38 Abnormal lab findings: Abnormal Labs 03/28/21 03/28/21 03/28/21 08:26 09:25 09:25 WBC RDW Plt Count Lymph % (Auto) Otero % (Auto) Lymph # (Auto) Otero # (Auto) Seg Neutrophils % Seg Neutrophils # APTT D-Dimer 1100.30 H ABG pH POC ABG pO2 ABG Oxyhemoglobin ABG Glucose Carbon Dioxide Creatinine Glucose 109 H POC Glucose Magnesium 2.40 H Ferritin AST Lactate Dehydrogenase 677 H C-Reactive Protein 13.70 H Albumin Arterial Blood Glucose Arterial Blood Ionized Calcium Ur Specific [employer] Coronavirus (PCR) 03/28/21 03/28/21 03/28/21 09:25 Unknown Unknown WBC RDW Plt Count 96 L Lymph % (Auto) 7.2 L Otero % (Auto) 10.8 H Lymph # (Auto) 0.5 L [place]o # (Auto) Seg Neutrophils % 81.8 H Seg Neutrophils # APTT D-Dimer ABG pH POC ABG pO2 ABG Oxyhemoglobin ABG Glucose Carbon Dioxide Creatinine Glucose POC Glucose Magnesium Ferritin 1340.0 H AST Lactate Dehydrogenase C-Reactive Protein Albumin Arterial Blood Glucose Arterial Blood Ionized Calcium Ur Specific [employer] 1.038 H Coronavirus (PCR) 03/28/21 03/28/21 03/28/21 Unknown Unknown Unknown WBC RDW Plt Count Lymph % (Auto) [place]o % (Auto) Lymph # (Auto) [place]tero # (Auto) Seg Neutrophils % Seg Neutrophils # APTT 38.7 H D-Dimer ABG pH POC ABG pO2 ABG Oxyhemoglobin ABG Glucose Carbon Dioxide Creatinine Glucose 120 H POC Glucose Magnesium Ferritin AST 73 H Lactate Dehydrogenase C-Reactive Protein Albumin 3.4 L Arterial Blood Glucose Arterial Blood Ionized Calcium Ur Specific [employer] Coronavirus (PCR) Positive A 03/29/21 03/29/21 03/29/21 02:30 02:30 02:30 WBC RDW 15.4 H Plt Count 107 L Lymph % (Auto) 5.6 L [place] % (Auto) 10.0 H Lymph # (Auto) 0.4 L [place]o # (Auto) Seg Neutrophils % 84.2 H Seg Neutrophils # APTT D-Dimer ABG pH POC ABG pO2 ABG Oxyhemoglobin ABG Glucose Carbon Dioxide Creatinine Glucose 128 H POC Glucose Magnesium 2.60 H Ferritin AST 64 H Lactate Dehydrogenase C-Reactive Protein Albumin 3.1 L Arterial Blood Glucose Arterial Blood Ionized Calcium Ur Specific [employer] Coronavirus (PCR) 03/29/21 03/29/21 03/29/21 15:30 19:48 20:03 WBC RDW Plt Count Lymph % (Auto) [place]o % (Auto) Lymph # (Auto) [place]tero # (Auto) Seg Neutrophils % Seg Neutrophils # APTT D-Dimer ABG pH 7.264 L POC ABG pO2 51.4 L ABG Oxyhemoglobin 77.6 L ABG Glucose 275 H Carbon Dioxide 21 L Creatinine Glucose 125 H POC Glucose 189 H Magnesium Ferritin AST 64 H Lactate Dehydrogenase C-Reactive Protein Albumin 2.8 L Arterial Blood Glucose 275 H Arterial Blood Ionized Calcium 4.5 L Ur Specific [employer] Coronavirus (PCR) 03/30/21 03/31/21 03/31/21 06:07 07:38 07:38 WBC 11.8 H RDW 15.4 H Plt Count Lymph % (Auto) 2.4 L Otero % (Auto) 8.4 H Lymph # (Auto) 0.3 L [place]o # (Auto) 1.0 H Seg Neutrophils % 89.0 H Seg Neutrophils # 10.5 H APTT D-Dimer > 21020 H ABG pH POC ABG pO2 ABG Oxyhemoglobin ABG Glucose Carbon Dioxide Creatinine Glucose 131 H POC Glucose Magnesium Ferritin AST 49 H Lactate Dehydrogenase C-Reactive Protein Albumin 2.7 L Arterial Blood Glucose Arterial Blood Ionized Calcium Ur Specific [employer] Coronavirus (PCR) 03/31/21 03/31/21 04/01/21 07:38 07:38 06:37 WBC RDW Plt Count Lymph % (Auto) [place] % (Auto) Lymph # (Auto) [place]o # (Auto) Seg Neutrophils % Seg Neutrophils # APTT D-Dimer ABG pH POC ABG pO2 ABG Oxyhemoglobin ABG Glucose Carbon Dioxide Creatinine 0.7 L 0.7 L Glucose 122 H 117 H POC Glucose Magnesium Ferritin 1419.0 H AST 42 H 53 H Lactate Dehydrogenase 752 H C-Reactive Protein 4.40 H Albumin 2.9 L 3.2 L Arterial Blood Glucose Arterial Blood Ionized Calcium Ur Specific [employer] Coronavirus (PCR) Chest x-ray: report reviewed, image reviewed Additional Studies: CHEST 1 VIEW 03/31/21 INDICATION / CLINICAL INFORMATION: Pulmonary edema. COMPARISON: 2 days prior FINDINGS: SUPPORT DEVICES: None. HEART / MEDIASTINUM: No significant abnormality. LUNGS / PLEURA: No significant interval change in diffuse bilateral airspace opacities No pneumothorax. ADDITIONAL FINDINGS: No significant additional findings. IMPRESSION: No significant interval change in diffuse airspace disease within the bilateral lungs, could reflect edema or pneumonia.
[2021-04-01] MEDS: SODIUM CHLORIDE 0.9% 50 ML IVPB IV SCH (21:42)
[2021-04-01] MEDS: PRAVASTATIN 40 MG TAB PO SCH (21:48)
[2021-04-02] MEDS: methylPREDNISolone Sod Succinate 125 MG/2 ML INJ IV SCH ×3 (05:37→19:08)
[2021-04-02] MEDS: BENZONATATE 100 MG CAP PO SCH ×3 (05:38→22:07)
[2021-04-02 06:25] LABS: Basophils # (Auto) 0.2 K/mm3 (0.0-0.1); Basophils % (Auto) 1.2 % (0.0-1.8); Hematocrit 38.4 % (35.5-45.6); Hemoglobin 12.9 gm/dl (11.8-15.2); Lymphocytes # (Auto) 0.3 K/mm3 (1.2-5.4); Lymphocytes % (Auto) 2.3 % (13.4-35.0); Mean Corpuscular HGB Conc 34 % (32-34); Mean Corpuscular Volume 89 fl (84-94); Monocytes # (Auto) 1.4 K/mm3 (0.0-0.8); Monocytes % (Auto) 10.5 % (0.0-7.3); Platelet Count 186 K/mm3 (140-440); Red Blood Count 4.31 M/mm3 (3.65-5.03); Red Cell Distribution Width 15.7 % (13.2-15.2)
[2021-04-02 07:47] LABS: Alanine Aminotransferase 32 units/L (7-56); Blood Urea Nitrogen 22 mg/dL (9-20); Calcium 8.9 mg/dL (8.4-10.2); Hemolysis Index 7
[2021-04-02 08:00] LABS: BUN/Creatinine Ratio 31
--- NOTE | 2021-04-02 10:00 | Progress Note ---
Assessment and Plan Assessment and plan: 58-year-old male with past medical history of hypertension, congestive heart failure, AL 18 years ago presenting for complaint of shortness of breath of onset last Friday. Patient states that over the course the last 2 days his symptoms progressively worsened. He had associated symptoms of fever, dry cough, poor p.o. intake, diarrhea and generalized weakness. Ongoing evaluation and treatment for covid pneumonia Hospital Course: 03/29/2021: Cardiology evaluated patient due to 5 beats NSVT. Increased coreg, continue entresto. Patient follows with Dr Martinez. ID evaluated patient, Remdesivir started. Will continue supportive care. 03/30/2021: Respiratory distress overnight. LIkely an allergic reaction to remdesivir. Remdesivir has since been discontinued. Was on BIPAP on encounter and has since been dropped to 15 l/min salter nc. Continue supportive management. Will order inflammatory markers. 03/31/2021: Remains on salter nc 15l /min. sats 88-90% but in no distress. Continue supporitve management. Increased steroids to 60 q6hr. Obtained Pulmonology consult. CXR ordered, will follow. 04/01/2021: Remains on salter nc 12l /min. sats 88-90% but in no distress. Titrate down O2 requirements, ok with sats > 88%. Continue supporitve management. Lasix 20 mg IV x 1 ordered. 04/01/2021: Remains on salter nc 12l /min. Able to ambulate without any distress but does desaturate to 78%. Sats 88-90% when resting. Titrate down O2 requirements, ok with sats > 88%. Lasix 40 mg IV twice daily x 2 doses ordered. Continue supportive management Assessment and Plan: 1. Acute hypoxic respiratory failure -Symptoms of shortness of breath, dry cough, fever, decreased appetite. High suspicion for Covid PNA. -Febrile 101.4 F, elevated inflammatory markers on admission -CTA chest: Negative for PE, findings consistent with bilateral viral pneumonia. Please refer to official radiology report ED course: Azithromycin IV, Rocephin IV, Decadron IV, albuterol nebulizer -Supplemental oxygen via nasal cannula, de-escalate as patient tolerates Covid therapies as below Albuterol and budesonide inhalers ordered 2. Suspected COVID-19 infection -Patient was vaccinated. Received both doses of Pfizer vaccine back in had similar symptoms however she recovered uneventfully Empiric antibiotic coverage with azithromycin IV, Rocephin IV. Procalcitonin ordered, will follow -Decadron 8 mg IV daily x10 days total therapy -DVT prophylaxis dosing Lovenox May be a candidate for Remdesivir however transaminitis noted. Will defer to ID. May be a candidate for Actemra , elevated CRP Infectious disease consulted 3. Sepsis Suspect viral pneumonia as source, temp 101.4F, tachycardic 111 bpm Blood cultures ordered in emergency department 4. Transaminitis -Elevated AST to 73. Likely due to underlying Covid viral illness May be a candidate for remdesivir as it is not greater than 4 times upper limit of normal 5. Chronic congestive heart failure -Resume home coreg, entresto -coreg increased by cardiology 6. Essential hypertension -Resume home coreg, entresto 7. Hyperlipidemia - resume home simvastatin 8. History of Rheumatoid Arthritis - resume home leflunamide 9. Peripheral neuropathy - resume home gabapentin History Interval history: No acute complaints on a.m. encounter. Denies any chest congestion, cough. Was able to ambulate across the room using toilet and making his way to chair with no issues. His oxygen saturation does drop however he denies any respiratory distress. When resting he is saturating 88 to 90%. Hospitalist Physical - Physical exam Narrative exam: Physical Exam: Constitutional: Alert, cooperative. No acute distress. On salter nc 12L/min Head, Ears, Nose: Normocephalic, atraumatic. External ears, nose normal Eyes: Conjunctivae/corneas clear. No icterus. No ptosis. Neck: Supple, no meningeal signs Oral: dentition fair, no thrush Cardiovascular: S1, S2 normal. Respiratory: Good air entry, bilateral rhonchi GI: Soft, non-tender; bowel sounds normal. No peritoneal signs. Musculoskeletal: No pedal edema, no cyanosis. Skin: No rash or abscess, see nursing assessment for full skin exam Hem/Lymphatic: No palpable cervical or supraclavicular nodes. No lymphangitis Psych: Mood ok. Affect normal Neurological: Awake, alert, oriented. No gross abnormality - Constitutional Vitals: Temp Pulse Resp BP Pulse Ox 97.7 F 93 H 20 135/75 91 04/01/21 21:36 04/01/21 16:11 04/01/21 21:36 04/01/21 21:36 04/02/21 02:00 General appearance: Present: no acute distress HEART Score - HEART Score Troponin: Troponin T 0.013 ng/mL (0.00-0.029) 03/28/21 Unknown Results - Labs CBC & Chem 7: 04/02/21 05:57 04/02/21 05:57 Labs: Laboratory Last Values WBC 13.6 K/mm3 (4.5-11.0) H 04/02/21 05:57 RBC 4.31 M/mm3 (3.65-5.03) 04/02/21 05:57 Hgb 12.9 gm/dl (11.8-15.2) 04/02/21 05:57 Hct 38.4 % (35.5-45.6) 04/02/21 05:57 MCV 89 fl (84-94) 04/02/21 05:57 MCH 30 pg (28-32) 04/02/21 05:57 MCHC 34 % (32-34) 04/02/21 05:57 RDW 15.7 % (13.2-15.2) H 04/02/21 05:57 Plt Count 186 K/mm3 (140-440) 04/02/21 05:57 Lymph % (Auto) 2.3 % (13.4-35.0) L 04/02/21 05:57 [place] % (Auto) 10.5 % (0.0-7.3) H 04/02/21 05:57 Eos % (Auto) 0.0 % (0.0-4.3) 04/02/21 05:57 Baso % (Auto) 1.2 % (0.0-1.8) 04/02/21 05:57 Lymph # (Auto) 0.3 K/mm3 (1.2-5.4) L 04/02/21 05:57 [place] # (Auto) 1.4 K/mm3 (0.0-0.8) H 04/02/21 05:57 Eos # (Auto) 0.0 K/mm3 (0.0-0.4) 04/02/21 05:57 Baso # (Auto) 0.2 K/mm3 (0.0-0.1) H 04/02/21 05:57 Seg Neutrophils % 86.0 % (40.0-70.0) H 04/02/21 05:57 Seg Neutrophils # 11.7 K/mm3 (1.8-7.7) H 04/02/21 05:57 PT 13.2 Sec. (12.2-14.9) 03/28/21 Unknown INR 0.95 (0.87-1.13) 03/28/21 Unknown APTT 38.7 Sec. (24.2-36.6) H 03/28/21 Unknown D-Dimer > 74884 ng/mlDDU (0-234) H 04/02/21 05:57 ABG pH 7.264 (7.320-7.450) L 03/29/21 20:03 POC ABG pCO2 42.0 mmHg (32.0-48.0) 03/29/21 20:03 POC ABG pO2 51.4 mmHg (83-108) L 03/29/21 20:03 POC ABG HCO3 18.6 03/29/21 20:03 ABG O2 Saturation 78.9 (0-100) 03/29/21 20:03 POC ABG Base Excess -8.0 03/29/21 20:03 ABG Hemoglobin 15.1 (12.0-17.5) 03/29/21 20:03 ABG Oxyhemoglobin 77.6 (94-98) L 03/29/21 20:03 ABG Methemoglobin 0.2 (0.0-1.5) 03/29/21 20:03 ABG Sodium 136.8 mmol/L (136.0-145.0) 03/29/21 20:03 ABG Potassium 4.0 mmol/L (3.40-4.50) 03/29/21 20:03 ABG Chloride 104.0 mmol/L (98-107) 03/29/21 20:03 ABG Glucose 275 mg/dL (65-95) H 03/29/21 20:03 Carboxyhemoglobin 1.5 (0.5-1.5) 03/29/21 20:03 FiO2 % 100.0 03/29/21 20:03 Sodium 140 mmol/L (137-145) 04/02/21 05:57 Potassium 3.7 mmol/L (3.6-5.0) 04/02/21 05:57 Chloride 106.0 mmol/L (98-107) 04/02/21 05:57 Carbon Dioxide 26 mmol/L (22-30) 04/02/21 05:57 Anion Gap 12 mmol/L 04/02/21 05:57 BUN 22 mg/dL (9-20) H 04/02/21 05:57 Creatinine 0.7 mg/dL (0.8-1.3) L 04/02/21 05:57 Estimated GFR > 60 ml/min 04/02/21 05:57 BUN/Creatinine Ratio 31 % 04/02/21 05:57 Glucose 149 mg/dL (75-100) H 04/02/21 05:57 POC Glucose 189 mg/dL (70-105) H 03/29/21 19:48 Lactic Acid 1.60 mmol/L (0.7-2.0) 03/28/21 Unknown Calcium 8.9 mg/dL (8.4-10.2) 04/02/21 05:57 Magnesium 2.60 mg/dL (1.7-2.3) H 03/29/21 02:30 Ferritin 1180.0 ng/mL (30.0-300.0) H 04/02/21 05:57 Total Bilirubin 0.90 mg/dL (0.1-1.2) 04/02/21 05:57 AST 42 units/L (5-40) H 04/02/21 05:57 ALT 32 units/L (7-56) 04/02/21 05:57 Alkaline Phosphatase 85 units/L (35-129) 04/02/21 05:57 Lactate Dehydrogenase 811 units/L (91-180) H 04/02/21 05:57 Troponin T 0.013 ng/mL (0.00-0.029) 03/28/21 Unknown C-Reactive Protein 2.00 mg/dL (0.00-1.30) H 04/02/21 05:57 Total Protein 6.6 g/dL (6.3-8.2) 04/02/21 05:57 Albumin 3.0 g/dL (3.9-5) L 04/02/21 05:57 Albumin/Globulin Ratio 0.8 % 04/02/21 05:57 Procalcitonin 0.37 ng/mL (<0.15) 03/28/21 09:25 Arterial Blood Glucose 275 mg/dL (65-95) H 03/29/21 20:03 Arterial Blood Ionized Calcium 4.5 mg/dL (4.6-5.3) L 03/29/21 20:03 Urine Color [place] (Yellow) 03/28/21 Unknown Urine Turbidity Clear (Clear) 03/28/21 Unknown Urine pH 5.0 (5.0-7.0) 03/28/21 Unknown Ur Specific [place] 1.038 (1.003-1.030) H 03/28/21 Unknown Urine Protein >500 mg/dL (Negative) 03/28/21 Unknown Urine Glucose (UA) 50 mg/dL (Negative) 03/28/21 Unknown Urine Ketones Tr mg/dL (Negative) 03/28/21 Unknown Urine Blood Mod (Negative) 03/28/21 Unknown Urine Nitrite Neg (Negative) 03/28/21 Unknown Urine Bilirubin Neg (Negative) 03/28/21 Unknown Urine Urobilinogen 2.0 mg/dL (<2.0) 03/28/21 Unknown Ur Leukocyte Esterase Neg (Negative) 03/28/21 Unknown Urine WBC (Auto) 6.0 /HPF (0.0-6.0) 03/28/21 Unknown Urine RBC (Auto) 2.0 /HPF (0.0-6.0) 03/28/21 Unknown U Epithel Cells (Auto) < 1.0 /HPF (0-13.0) 03/28/21 Unknown Urine Mucus Few /HPF 03/28/21 Unknown Coronavirus (PCR) Positive (Negative) A 03/28/21 Unknown Microbiology: Microbiology 03/28/21 08:26 Peripheral/Venous Blood Culture - Final NO GROWTH AFTER 5 DAYS 03/28/21 08:26 Peripheral/Venous Blood Culture - Final NO GROWTH AFTER 5 DAYS [place]/IV: Voiding Method Urinal Active Medications - Current Medications Current Medications: Generic Name Dose Route Start Last Admin Trade Name Freq PRN Reason Stop Dose Admin Acetaminophen 650 mg 03/28/21 12:45 Acetaminophen 325 Mg Tab PO Q4H PRN Pain MILD(1-3)/Fever >100.5/MIRANDA Albuterol 2.5 mg 03/29/21 08:00 03/31/21 14:25 Albuterol 2.5 Mg/3 Ml Nebu IH Not Given TIDRT LISSETTE Aspirin 81 mg 03/29/21 10:00 04/01/21 10:30 Aspirin 81 Mg Tab Chew PO 81 mg QDAY LISSETTE Administration Benzonatate 100 mg 03/29/21 07:00 04/02/21 05:38 Benzonatate 100 Mg Cap PO 100 mg Q8HR LISSETTE Administration Budesonide 0.5 mg 03/28/21 14:00 03/31/21 10:24 Budesonide 0.5 Mg/2 Ml Nebu IH Not Given BID LISSETTE Carvedilol 25 mg 03/29/21 10:00 04/01/21 21:48 Carvedilol 25 Mg Tab PO 25 mg Q12HR LISSETTE Administration Enoxaparin Sodium 40 mg 03/28/21 14:00 04/01/21 10:29 Enoxaparin 40 Mg/0.4 Ml Inj SUB-Q 40 mg DAILY LISSETTE Administration Protocol Furosemide 40 mg 04/02/21 18:00 Furosemide 40 Mg/4 Ml Inj IV 04/03/21 06:01 0600,1800 LISSETTE Gabapentin 300 mg 03/29/21 18:00 04/01/21 17:42 Gabapentin 300 Mg Cap PO 300 mg QPM LISSETTE Administration Ceftriaxone Sodium 1 gm in 50 mls @ 100 mls/hr 03/29/21 10:00 04/01/21 20:43 Rocephin/Ns 1 Gm/50 Ml IV 04/02/21 12:00 Infused Q24H LISSETTE Infusion Protocol Labetalol HCl 10 mg 03/28/21 15:34 Labetalol 20 Mg/4 Ml Inj IV Q6HR PRN sbp > 160, hold for hr < 70 Methylprednisolone Sodium Succinate 60 mg 03/31/21 18:00 04/02/21 05:37 Methylprednisolone Sod Succinate 125 Mg/2 Ml Inj IV 04/08/21 14:00 60 mg Q6HR LISSETTE Administration Miscellaneous Medication 20 mg 03/29/21 10:00 Leflunomide PO DAILY [facility] Ondansetron HCl 4 mg 03/28/21 12:45 Ondansetron 4 Mg/2 Ml Inj IV Q8H PRN Nausea And Vomiting Oxycodone/Acetaminophen 1 tab 03/28/21 12:45 04/01/21 10:36 Oxycodone /Acetaminophen 5-325mg Tab PO 1 tab Q6H PRN Administration Pain, Moderate (4-6) Pravastatin Sodium 40 mg 03/29/21 22:00 04/01/21 21:48 Pravastatin 40 Mg Tab PO 40 mg QHS LISSETTE Administration Sodium Chloride 10 ml 03/28/21 22:00 04/01/21 21:48 Sodium Chloride 0.9% 10 Ml Flush Syringe IV 10 ml BID LISSETTE Administration Sodium Chloride 10 ml 03/28/21 12:45 Sodium Chloride 0.9% 10 Ml Flush Syringe IV PRN PRN LINE FLUSH Sodium Chloride 50 ml 03/29/21 16:00 04/01/21 21:42 Sodium Chloride 0.9% 50 Ml Ivpb IV 04/02/21 21:01 Not Given Q24HR@2100 [facility] Nutrition/Malnutrition Assess - Dietary Evaluation Nutrition/Malnutrition Findings: Nutrition Notes Start: 03/29/21 14:40 Freq: Status: Active Protocol: Document 03/29/21 14:40 GB (Rec: 03/29/21 14:49 GB [email or web address]) Nutrition Notes 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 Weight Status Obese Subjective/Other Information Admission notes report no change in weight, decrease in po intake related to decreased appetite and per H&P symptoms over past 2 days. Percent of energy/protein needs met: PO intake of 50% or greater of meals TID daily will meet 80% or greater of estimated energy needs. Burn Absent Trauma Absent GI Symptoms Diarrhea Food Allergy No Skin Integrity/Comment no reported skin complications Minimum of two criteria No #1 Nutrition Diagnosis Predicted suboptimal energy intake Comments: depending on duration and complications of possible covid and treatments Etiology SOB As Evidenced by Signs and Symptoms reported decreased PO r/t decreased appetite Is patient on ventilator? No Is Patient Ambulatory and/or Out of Bed Yes REE-([place]-St. Jeor-ambulatory/OOB) [ 1994.044 NUTR.[id number]] Kcal/Kg value to use for calculation 22 Approximate Energy Requirements Using 1841 kcal/Kg Calculation Used for Recommendations Kcal/kg Additional Notes Protein: 0.8-1 g/kg @83k- 83g Fluids: 1 ml/kcal or per MD Nutrition Intervention Change Diet Order: continue Nutrition Support: n/a Add Supplement/Snack (indicate name/kcal Add supplement Ensure BID if /protein ) po intake of meals is less than 50%/day Goal #1 PO intake of meals to be 50% or greater TID daily for LOS Goal #2 Weight to maintain within +/-3 % current weight for LOS Follow-Up By: 04/03/21 Additional Comments nursing staff to monitor and record PO intake of meals daily.
[2021-04-02] MEDS: cefTRIAXone/NS 1 GM/50 ML 1 GM/50 ML BAG IV SCH (10:55)
[2021-04-02] MEDS: FUROSEMIDE 40 MG/4 ML INJ IV SCH ×2 (10:55→19:08)
[2021-04-02] MEDS: SACUBITRIL/VALSARTAN 49-51 MG TAB PO SCH ×2 (10:56→22:05)
[2021-04-02] MEDS: ENOXAPARIN 40 MG/0.4 ML INJ SUB-Q SCH (10:56)
--- NOTE | 2021-04-02 10:56 | Progress Note ---
Assessment and Plan Patient is a 58 y/o male with a PMHx of HrEF (30-35%), CAD s/p PCI, ischemic cardiomyopathy, HTN Breakthrough COVID-19 PNA Sepsis Acute hypoxic respiratory failure * Patient received both doses of Pfizer vaccine. COVID PCR positive * Currently on NC * ID following Nonsustained Vtach HFrEF CAD s/p PCI HTN * EKG- sinus tach 109 with APCs and LVH. No acute ischemic changes. Trops negative x2. AMI ruled out * Tele reviewed: Sinus 97 with PVCs * Placement of ICD has been discussed with patient in the office but patient re fuses * Echo 08/01/2020- LV wall thickness is mildly increased. EF 30-35%, RV size is mildly dilated, The RV systolic function is normal, severely dilated left atrium, there is mild aortic regurgitation there is moderate mitral valve prolapse, posterior leaflet, there is mild mitral regurgitation. * Lexiscan MPI stress test 12/24/2019- Large fixed inferior defect, medium sized fixed inferior lateral defect findings suggestive of prior infarction in right coronary and left circumflex coronary arteries. No evidence of significant stress-induced ischemia Plan: Patient cardiac status is stable. Will see as needed Patient may follow up with Dr. Martinez, [facility], 1-2 weeks after discharge. Patient seen in conjunction with Dr. Cárdenas who agrees with this plan. - Patient Problems (1) HFrEF (heart failure with reduced ejection fraction) Current Visit: Yes Status: Acute (2) CAD (coronary artery disease) Current Visit: Yes Status: Acute (3) Cardiomyopathy Current Visit: Yes Status: Acute (4) HTN (hypertension) Current Visit: Yes Status: Acute (5) Pneumonitis Current Visit: Yes Status: Acute (6) Suspected COVID-19 virus infection Current Visit: Yes Status: Acute Subjective Date of service: 04/02/21 Principal diagnosis: COVID-19 PNA Interval history: Patient sitting in chair. Reports feeling better and denies any cardiac complaints Sinus 97 with PVCs on monitor Objective Vital Signs Temp Pulse Resp BP Pulse Ox 04/02/21 02:00 91 04/01/21 22:00 95 04/01/21 21:36 97.7 F 20 135/75 04/01/21 20:00 91 04/01/21 16:11 93 H 88 04/01/21 14:40 88 04/01/21 11:49 100 H 91 04/01/21 11:48 99 H 89 04/01/21 11:47 144/84 - Physical Examination General: No Apparent Distress HEENT: Positive: PERRL Neck: Positive: trachea midline Cardiac: Positive: Reg Rate and Rhythm Lungs: Positive: Decreased Breath Sounds Neuro: Positive: Grossly Intact Abdomen: Positive: Soft, Active Bowel Sounds Skin: Negative: Rash, Suspicious Lesions, Ulceration Extremities: Present: upper extr. pulses, lower extr. pulses. Absent: edema - Labs and Meds Cardiac Enzymes 04/01/21 04/02/21 Range/Units 06:37 05:57 AST 53 H 42 H (5-40) units/L Lactate Dehydrogenase 811 H (91-180) units/L CBC 04/02/21 Range/Units 05:57 WBC 13.6 H (4.5-11.0) K/mm3 RBC 4.31 (3.65-5.03) M/mm3 Hgb 12.9 (11.8-15.2) gm/dl Hct 38.4 (35.5-45.6) % Plt Count 186 (140-440) K/mm3 Lymph # (Auto) 0.3 L (1.2-5.4) K/mm3 [place] # (Auto) 1.4 H (0.0-0.8) K/mm3 Eos # (Auto) 0.0 (0.0-0.4) K/mm3 Baso # (Auto) 0.2 H (0.0-0.1) K/mm3 Comprehensive Metabolic Panel 04/01/21 04/02/21 Range/Units 06:37 05:57 Sodium 142 140 (137-145) mmol/L Potassium 4.2 3.7 (3.6-5.0) mmol/L Chloride 103.8 106.0 (98-107) mmol/L Carbon Dioxide 26 26 (22-30) mmol/L BUN 17 22 H (9-20) mg/dL Creatinine 0.7 L 0.7 L (0.8-1.3) mg/dL Glucose 117 H 149 H (75-100) mg/dL Calcium 9.3 8.9 (8.4-10.2) mg/dL AST 53 H 42 H (5-40) units/L ALT 36 32 (7-56) units/L Alkaline Phosphatase 91 85 (35-129) units/L Total Protein 7.2 6.6 (6.3-8.2) g/dL Albumin 3.2 L 3.0 L (3.9-5) g/dL - Imaging and Cardiology EKG: report reviewed, image reviewed Echo: report reviewed - Telemetry EKG Rhythm: Sinus Rhythm - EKG Sinus rhythms and dysrhythmias: sinus rhythm Ventricular dysrhythmias: ventricular premature com, non-sustained ventricular Chamber hypertrophy or enlargement: left ventricular hypertro
[2021-04-02] MEDS: carvediloL 25 MG TAB PO SCH ×2 (10:57→22:07)
[2021-04-02] MEDS: ASPIRIN 81 MG TAB CHEW PO SCH (10:57)
--- NOTE | 2021-04-02 12:23 | Progress Note ---
Assessment and Plan Cultures: SARS CoV2 PCR: Positive 03/28/2021 blood culture: No growth A/P: 58-year-old male with hypertension, CHF, CAD admitted with cough, fever, shortness of breath, generalized weakness along with some loose stools: #Bilateral pneumonia: Secondary to COVID-19. Breakthrough infection. Vacci nated against COVID-19 with Pfizer back in Jul/Aug 2020. CTA negative for pulmonary thromboembolism, showed bilateral extensive pneumonitis. Elevated markers. Allergic reaction to remdesivir, hence stopped after 1st dose. #Acute hypoxic respiratory failure: Requiring salter nasal cannula. #Transaminitis: Likely secondary to COVID-19. #Thrombocytopenia #Rheumatoid arthritis, immunocompromised host: On leflunomide. #CHF Recs: continue steroids x 10 days D-dimer significantly elevated, bilateral venous duplexes ordered. Initial CTA on admission was negative for PE. prophylactic anticoagulation based on d-dimer per hospital protocol completed empiric abx due to mildly elevated procalcitonin, immunocompromised status trend d-dimer, CRP every 2-3 days Tanya Hazel MD, FACP [facility] ([facility] O: [phone] F: [phone] Subjective Date of service: 04/02/21 Principal diagnosis: COVID-19 PNA Interval history: Afebrile. Prone positioning at times. Hypoxic requiring high flow nasal cannula at 15 L/min. Objective - Exam Narrative Exam: Physical Exam (reviewed in chart to minimize risk of transmission) Constitutional: deferred Head, Ears, Nose: deferred Eyes: deferred Neck: deferred Oral: deferred Cardiovascular: deferred Respiratory: deferred GI: deferred Musculoskeletal: deferred Skin: deferred Hem/Lymphatic: deferred Psych: deferred Neurological: deferred - Constitutional Vitals: Vital Signs Temp Pulse Resp BP Pulse Ox 98.0 F 85 20 136/74 95 04/02/21 04:59 04/02/21 04:59 04/02/21 04:59 04/02/21 04:59 04/02/21 04:59 Temperature -Last 24 Hours Temperature 98.0 F Temperature 97.7 F - Labs CBC & Chem 7: 04/02/21 05:57 04/02/21 05:57 Labs: Abnormal lab results 04/01/21 04/02/21 04/02/21 Range/Units 06:37 05:57 05:57 WBC 13.6 H (4.5-11.0) K/mm3 RDW 15.7 H (13.2-15.2) % Lymph % (Auto) 2.3 L (13.4-35.0) % [place] % (Auto) 10.5 H (0.0-7.3) % Lymph # (Auto) 0.3 L (1.2-5.4) K/mm3 [place] # (Auto) 1.4 H (0.0-0.8) K/mm3 Baso # (Auto) 0.2 H (0.0-0.1) K/mm3 Seg Neutrophils % 86.0 H (40.0-70.0) % Seg Neutrophils # 11.7 H (1.8-7.7) K/mm3 D-Dimer > 86469 H (0-234) ng/mlDDU BUN (9-20) mg/dL Creatinine 0.7 L (0.8-1.3) mg/dL Glucose 117 H (75-100) mg/dL Ferritin (30.0-300.0) ng/mL AST 53 H (5-40) units/L Lactate Dehydrogenase (91-180) units/L C-Reactive Protein (0.00-1.30) mg/dL Albumin 3.2 L (3.9-5) g/dL 04/02/21 04/02/21 Range/Units 05:57 05:57 WBC (4.5-11.0) K/mm3 RDW (13.2-15.2) % Lymph % (Auto) (13.4-35.0) % [place] % (Auto) (0.0-7.3) % Lymph # (Auto) (1.2-5.4) K/mm3 [place] # (Auto) (0.0-0.8) K/mm3 Baso # (Auto) (0.0-0.1) K/mm3 Seg Neutrophils % (40.0-70.0) % Seg Neutrophils # (1.8-7.7) K/mm3 D-Dimer (0-234) ng/mlDDU BUN 22 H (9-20) mg/dL Creatinine 0.7 L (0.8-1.3) mg/dL Glucose 149 H (75-100) mg/dL Ferritin 1180.0 H (30.0-300.0) ng/mL AST 42 H (5-40) units/L Lactate Dehydrogenase 811 H (91-180) units/L C-Reactive Protein 2.00 H (0.00-1.30) mg/dL Albumin 3.0 L (3.9-5) g/dL
[2021-04-02] MEDS: BUDESONIDE 0.5 MG/2 ML NEBU IH SCH ×4 (12:31→22:38)
[2021-04-02] MEDS: ALBUTEROL 2.5 MG/3 ML NEBU IH SCH ×5 (12:31→22:38)
--- NOTE | 2021-04-02 14:08 | Progress Note ---
Assessment and Plan 66-year-old male with past medical history of hypertension, congestive heart failure, OR 18 years ago presenting for complaint of shortness of breath of onset last Friday. Patient was seen and evaluated at our emergency department 2 days ago for similar symptoms. He was believed to have symptoms consistent with Covid 19 viral illness . He was discharged with prescriptions for Tessalon Perles and albuterol nebulizer and instructed to obtain outpatient COVID-19 testing. Patient states that over the course the last 2 days his sym ptoms progressively worsened. He had associated symptoms of fever, dry cough, poor p.o. intake, diarrhea and generalized weakness. Medications prescribed 2 days ago did not relieve symptoms. When patient had near syncopal event, who is a rim fire charger operator at our facility recommended he come back to our hospital to be evaluated and treated. On arrival patient was found to be hypoxic with saturations of 80%. This improved to 93% on my encounter, patient was on 4 L nasal cannula. Of note he does have a history of congestive heart failure. 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 Pabon from [facility]. He did not know what his ejection fraction was but did state he is currently taking Entresto and Coreg for his congestive heart failure. Moreover, patient has been vaccinated against COVID-19 receiving in both doses of the Pfizer vaccine back in . He denied any known sick contacts except for his who had similar symptoms but recovered uneventfully. She was not tested but is vaccinated against COVID-19. Patient has no history of smoking, alcohol or drug abuse. 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 ED Course: Azithromycin IV, Rocephin IV, Decadron IV, albuterol nebulizer Patient awake. Patient is still on high flow O2 15 litres. O2 saturation 95%. BIPAP stand by in the room. ABG on 100% FIO2 ABG pH 7.264 (7.320-7.450) L 03/29/21 20:03 POC ABG pCO2 42.0 mmHg (32.0-48.0) 03/29/21 20:03 POC ABG pO2 51.4 mmHg (83-108) L 03/29/21 20:03 POC ABG HCO3 18.6 03/29/21 20:03 ABG O2 Saturation 78.9 (0-100) 03/29/21 20:03 PT/INR, D-dimer Denies chest pain, shortness of breath. Has some non productive cough. Patient afebrile. Has mild leukocytosis. Blood pressure 126/71, Pulse 77 Chest xray done 03/28/21 reported Stable mild perihilar prominence. No consolidation, pleural effusion or pneumothorax. Patient has Angio CT of chest 03/28/21 reported No evidence of pulmonary thromboembolism . Extensive bilateral pneumonitis, probably viral . Patient presently on I/V solumedrol, Ceftriaxone, Zithromax, S/C Lovenox, Famotidine, Albuterol inhaler and Budesonide aerosol treatments. Recommend to taper O2 slowly and keep O2 saturation above 92%. I spent critical care time of 33 minutes on this patient, review the chart, examining the patient, review Chest xray, CTA of chest, review the labs, talking to the nursing and respiratory staff and work out plan of treatment in this critically ill COVID 19 Patient with COVID pneumonia and Acute hypoxic respiratory failure. - Patient Problems (1) Acute respiratory failure with hypoxia Current Visit: Yes Status: Acute Plan to address problem: High flow O2. Slowly taper O2 and maintain O2 saturation above 92%. BIPAP 20/10, rate 20, FIO2 100%. If still requires high flow O2. Continue I/V solumedrol Continue Albuterol inhaler Continue S/C Lovenox. Continue famotidine. (2) COVID-19 virus infection Current Visit: Yes Status: Acute Plan to address problem: Patient is on I/V Solumedrol. S/C Lovenox. Management as per infectious diseases. (3) Pneumonia due to COVID-19 virus Current Visit: Yes Status: Acute Plan to address problem: Patient is on ceftriaxone and Zithromax. (4) CAD (coronary artery disease) Current Visit: Yes Status: Acute Plan to address problem: Management as per cardiology. (5) HFrEF (heart failure with reduced ejection fraction) Current Visit: Yes Status: Acute Plan to address problem: Management as per cardiology. (6) HTN (hypertension) Current Visit: Yes Status: Acute Plan to address problem: Management as per primary care. Subjective Date of service: 04/02/21 Principal diagnosis: COVID-19 PNA Interval history: 66-year-old male with past medical history of hypertension, congestive heart failure, OR 18 years ago presenting for complaint of shortness of breath of onset last Friday. Patient was seen and evaluated at our emergency department 2 days ago for similar symptoms. He was believed to have symptoms consistent with Covid 19 viral illness . He was discharged with prescriptions for Tessalon Perles and albuterol nebulizer and instructed to obtain outpatient COVID-19 testing. Patient states that over the course the last 2 days his symptoms progressively worsened. He had associated symptoms of fever, dry cough, poor p.o. intake, diarrhea and generalized weakness. Medications prescribed 2 days ago did not relieve symptoms. When patient had near syncopal event, who is a rim fire charger operator at our facility recommended he come back to our hospital to be evaluated and treated. On arrival patient was found to be hypoxic with saturations of 80%. This improved to 93% on my encounter, patient was on 4 L nasal cannula. Of note he does have a history of congestive heart failure. 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 Pabon from [facility]. He did not know what his ejection fraction was but did state he is currently taking Entresto and Coreg for his congestive heart failure. Moreover, patient has been vaccinated against COVID-19 receiving in both doses of the Pfizer vaccine back in . He denied any known sick contacts except for his who had similar symptoms but recovered uneventfully. She was not tested but is vaccinated against COVID-19. Patient has no history of smoking, alcohol or drug abuse. 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 ED Course: Azithromycin IV, Rocephin IV, Decadron IV, albuterol nebulizer Patient awake. Patient is still on high flow O2 15 litres. O2 saturation 95%. BIPAP stand by in the room. ABG on 100% FIO2 ABG pH 7.264 (7.320-7.450) L 03/29/21 20:03 POC ABG pCO2 42.0 mmHg (32.0-48.0) 03/29/21 20:03 POC ABG pO2 51.4 mmHg (83-108) L 03/29/21 20:03 POC ABG HCO3 18.6 03/29/21 20:03 ABG O2 Saturation 78.9 (0-100) 03/29/21 20:03 PT/INR, D-dimer Denies chest pain, shortness of breath. Has some non productive cough. Patient afebrile. Has leukocytosis. Blood pressure 147/82, Pulse 92 Chest xray done 03/28/21 reported Stable mild perihilar prominence. No consolidation, pleural effusion or pneumothorax. Patient has Angio CT of chest 03/28/21 reported No evidence of pulmonary thromboembolism . Extensive bilateral pneumonitis, probably viral . Patient presently on I/V solumedrol, Ceftriaxone, Zithromax, S/C Lovenox, Famotidine, Albuterol inhaler and Budesonide aerosol treatments. Recommend to taper O2 slowly and keep O2 saturation above 92%. Objective Vital Signs - 12hr 04/02/21 04/02/21 04/02/21 04:59 08:00 12:26 Temperature 98.0 F 98.2 F Pulse Rate 85 89 Respiratory 20 20 Rate Blood Pressure 136/74 123/79 O2 Sat by Pulse 95 95 89 Oximetry Constitutional: no acute distress, alert, other (Sleepy but arousable.) Eyes: non-icteric ENT: oropharynx moist Neck: supple, no lymphadenopathy Effort: mildly labored Ascultation: Bilateral: rhonchi Cardiovascular: regular rate and rhythm Gastrointestinal: normoactive bowel sounds, soft, non-tender Integumentary: normal Extremities: no cyanosis, no edema Neurologic: normal mental status, non-focal exam, pupils equal and round Psychiatric: mood appropriate, affect normal CBC and BMP: 04/02/21 05:57 04/02/21 05:57 ABG, PT/INR, D-dimer: ABG ABG pH 7.264 (7.320-7.450) L 03/29/21 20:03 POC ABG pCO2 42.0 mmHg (32.0-48.0) 03/29/21 20:03 POC ABG pO2 51.4 mmHg (83-108) L 03/29/21 20:03 POC ABG HCO3 18.6 03/29/21 20:03 ABG O2 Saturation 78.9 (0-100) 03/29/21 20:03 PT/INR, D-dimer PT 13.2 Sec. (12.2-14.9) 03/28/21 Unknown INR 0.95 (0.87-1.13) 03/28/21 Unknown D-Dimer > 83401 ng/mlDDU (0-234) H 04/02/21 05:57 Abnormal lab findings: Abnormal Labs 03/28/21 03/28/21 03/28/21 08:26 09:25 09:25 WBC RDW Plt Count Lymph % (Auto) Stephens % (Auto) Lymph # (Auto) Stephens # (Auto) Baso # (Auto) Seg Neutrophils % Seg Neutrophils # APTT D-Dimer 1100.30 H ABG pH POC ABG pO2 ABG Oxyhemoglobin ABG Glucose Carbon Dioxide BUN Creatinine Glucose 109 H POC Glucose Magnesium 2.40 H Ferritin AST Lactate Dehydrogenase 677 H C-Reactive Protein 13.70 H Albumin Arterial Blood Glucose Arterial Blood Ionized Calcium Ur Specific [place] Coronavirus (PCR) 03/28/21 03/28/21 03/28/21 09:25 Unknown Unknown WBC RDW Plt Count 96 L Lymph % (Auto) 7.2 L Stephens % (Auto) 10.8 H Lymph # (Auto) 0.5 L Stephens # (Auto) Baso # (Auto) Seg Neutrophils % 81.8 H Seg Neutrophils # APTT D-Dimer ABG pH POC ABG pO2 ABG Oxyhemoglobin ABG Glucose Carbon Dioxide BUN Creatinine Glucose POC Glucose Magnesium Ferritin 1340.0 H AST Lactate Dehydrogenase C-Reactive Protein Albumin Arterial Blood Glucose Arterial Blood Ionized Calcium Ur Specific [place] 1.038 H Coronavirus (PCR) 03/28/21 03/28/21 03/28/21 Unknown Unknown Unknown WBC RDW Plt Count Lymph % (Auto) Stephens % (Auto) Lymph # (Auto) Stephens # (Auto) Baso # (Auto) Seg Neutrophils % Seg Neutrophils # APTT 38.7 H D-Dimer ABG pH POC ABG pO2 ABG Oxyhemoglobin ABG Glucose Carbon Dioxide BUN Creatinine Glucose 120 H POC Glucose Magnesium Ferritin AST 73 H Lactate Dehydrogenase C-Reactive Protein Albumin 3.4 L Arterial Blood Glucose Arterial Blood Ionized Calcium Ur Specific [place] Coronavirus (PCR) Positive A 03/29/21 03/29/21 03/29/21 02:30 02:30 02:30 WBC RDW 15.4 H Plt Count 107 L Lymph % (Auto) 5.6 L Stephens % (Auto) 10.0 H Lymph # (Auto) 0.4 L Stephens # (Auto) Baso # (Auto) Seg Neutrophils % 84.2 H Seg Neutrophils # APTT D-Dimer ABG pH POC ABG pO2 ABG Oxyhemoglobin ABG Glucose Carbon Dioxide BUN Creatinine Glucose 128 H POC Glucose Magnesium 2.60 H Ferritin AST 64 H Lactate Dehydrogenase C-Reactive Protein Albumin 3.1 L Arterial Blood Glucose Arterial Blood Ionized Calcium Ur Specific [place] Coronavirus (PCR) 03/29/21 03/29/21 03/29/21 15:30 19:48 20:03 WBC RDW Plt Count Lymph % (Auto) Stephens % (Auto) Lymph # (Auto) Stephens # (Auto) Baso # (Auto) Seg Neutrophils % Seg Neutrophils # APTT D-Dimer ABG pH 7.264 L POC ABG pO2 51.4 L ABG Oxyhemoglobin 77.6 L ABG Glucose 275 H Carbon Dioxide 21 L BUN Creatinine Glucose 125 H POC Glucose 189 H Magnesium Ferritin AST 64 H Lactate Dehydrogenase C-Reactive Protein Albumin 2.8 L Arterial Blood Glucose 275 H Arterial Blood Ionized Calcium 4.5 L Ur Specific [place] Coronavirus (PCR) 03/30/21 03/31/21 03/31/21 06:07 07:38 07:38 WBC 11.8 H RDW 15.4 H Plt Count Lymph % (Auto) 2.4 L Stephens % (Auto) 8.4 H Lymph # (Auto) 0.3 L Stephens # (Auto) 1.0 H Baso # (Auto) Seg Neutrophils % 89.0 H Seg Neutrophils # 10.5 H APTT D-Dimer > 38040 H ABG pH POC ABG pO2 ABG Oxyhemoglobin ABG Glucose Carbon Dioxide BUN Creatinine Glucose 131 H POC Glucose Magnesium Ferritin AST 49 H Lactate Dehydrogenase C-Reactive Protein Albumin 2.7 L Arterial Blood Glucose Arterial Blood Ionized Calcium Ur Specific [place] Coronavirus (PCR) 03/31/21 03/31/21 04/01/21 07:38 07:38 06:37 WBC RDW Plt Count Lymph % (Auto) Stephens % (Auto) Lymph # (Auto) Stephens # (Auto) Baso # (Auto) Seg Neutrophils % Seg Neutrophils # APTT D-Dimer ABG pH POC ABG pO2 ABG Oxyhemoglobin ABG Glucose Carbon Dioxide BUN Creatinine 0.7 L 0.7 L Glucose 122 H 117 H POC Glucose Magnesium Ferritin 1419.0 H AST 42 H 53 H Lactate Dehydrogenase 752 H C-Reactive Protein 4.40 H Albumin 2.9 L 3.2 L Arterial Blood Glucose Arterial Blood Ionized Calcium Ur Specific [place] Coronavirus (PCR) 04/02/21 04/02/21 04/02/21 05:57 05:57 05:57 WBC 13.6 H RDW 15.7 H Plt Count Lymph % (Auto) 2.3 L Stephens % (Auto) 10.5 H Lymph # (Auto) 0.3 L Stephens # (Auto) 1.4 H Baso # (Auto) 0.2 H Seg Neutrophils % 86.0 H Seg Neutrophils # 11.7 H APTT D-Dimer > 46721 H ABG pH POC ABG pO2 ABG Oxyhemoglobin ABG Glucose Carbon Dioxide BUN 22 H Creatinine 0.7 L Glucose 149 H POC Glucose Magnesium Ferritin AST 42 H Lactate Dehydrogenase 811 H C-Reactive Protein 2.00 H Albumin 3.0 L Arterial Blood Glucose Arterial Blood Ionized Calcium Ur Specific [place] Coronavirus (PCR) 04/02/21 05:57 WBC RDW Plt Count Lymph % (Auto) Stephens % (Auto) Lymph # (Auto) Stephens # (Auto) Baso # (Auto) Seg Neutrophils % Seg Neutrophils # APTT D-Dimer ABG pH POC ABG pO2 ABG Oxyhemoglobin ABG Glucose Carbon Dioxide BUN Creatinine Glucose POC Glucose Magnesium Ferritin 1180.0 H AST Lactate Dehydrogenase C-Reactive Protein Albumin Arterial Blood Glucose Arterial Blood Ionized Calcium Ur Specific [place] Coronavirus (PCR)
[2021-04-02] MEDS: GABAPENTIN 300 MG CAP PO SCH (19:07)
[2021-04-02] MEDS: PRAVASTATIN 40 MG TAB PO SCH (22:05)
[2021-04-02] MEDS: SODIUM CHLORIDE 0.9% 50 ML IVPB IV SCH (22:06)
[2021-04-03] MEDS: methylPREDNISolone Sod Succinate 125 MG/2 ML INJ IV SCH ×4 (00:52→18:05)
[2021-04-03] MEDS: BENZONATATE 100 MG CAP PO SCH ×3 (05:51→22:57)
--- NOTE | 2021-04-03 09:23 | Progress Note ---
Assessment and Plan Assessment and plan: 58-year-old male with past medical history of hypertension, congestive heart failure, NM 18 years ago presenting for complaint of shortness of breath of onset last Friday. Patient states that over the course the last 2 days his symptoms progressively worsened. He had associated symptoms of fever, dry cough, poor p.o. intake, diarrhea and generalized weakness. Ongoing evaluation and treatment for covid pneumonia Hospital Course: 03/29/2021: Cardiology evaluated patient due to 5 beats NSVT. Increased coreg, continue entresto. Patient follows with Dr Martinez. ID evaluated patient, Remdesivir started. Will continue supportive care. 03/30/2021: Respiratory distress overnight. LIkely an allergic reaction to remdesivir. Remdesivir has since been discontinued. Was on BIPAP on encounter and has since been dropped to 15 l/min salter nc. Continue supportive management. Will order inflammatory markers. 03/31/2021: Remains on salter nc 15l /min. sats 88-90% but in no distress. Continue supporitve management. Increased steroids to 60 q6hr. Obtained Pulmonology consult. CXR ordered, will follow. 04/01/2021: Remains on salter nc 12l /min. sats 88-90% but in no distress. Titrate down O2 requirements, ok with sats > 88%. Continue supporitve management. Lasix 20 mg IV x 1 ordered. 04/02/2021: Remains on salter nc 12l /min. Able to ambulate without any distress but does desaturate to 78%. Sats 88-90% when resting. Titrate down O2 requirements, ok with sats > 88%. Lasix 40 mg IV twice daily x 2 doses ordered. Continue supportive management 04/03/2021. Remains on salter nc but decreased from 12l /min to 8 L/min. Titrate down O2 requirements, ok with sats > 88%. Continue Lasix as needed Assessment and Plan: 1. Acute hypoxic respiratory failure -Symptoms of shortness of breath, dry cough, fever, decreased appetite. High suspicion for Covid PNA. -Febrile 101.4 F, elevated inflammatory markers on admission -CTA chest: Negative for PE, findings consistent with bilateral viral pneumonia. Please refer to official radiology report ED course: Azithromycin IV, Rocephin IV, Decadron IV, albuterol nebulizer -Supplemental oxygen via nasal cannula, de-escalate as patient tolerates Covid therapies as below Albuterol and budesonide inhalers ordered 2. Suspected COVID-19 infection -Patient was vaccinated. Received both doses of Pfizer vaccine back in had similar symptoms however she recovered uneventfully Empiric antibiotic coverage with azithromycin IV, Rocephin IV. Procalcitonin ordered, will follow -Decadron 8 mg IV daily x10 days total therapy -DVT prophylaxis dosing Lovenox May be a candidate for Remdesivir however transaminitis noted. Will defer to ID. May be a candidate for Actemra , elevated CRP Infectious disease consulted 3. Sepsis Suspect viral pneumonia as source, temp 101.4F, tachycardic 111 bpm Blood cultures ordered in emergency department 4. Transaminitis -Elevated AST to 73. Likely due to underlying Covid viral illness May be a candidate for remdesivir as it is not greater than 4 times upper limit of normal 5. Chronic congestive heart failure -Resume home coreg, entresto -coreg increased by cardiology 6. Essential hypertension -Resume home coreg, entresto 7. Hyperlipidemia - resume home simvastatin 8. History of Rheumatoid Arthritis - resume home leflunamide 9. Peripheral neuropathy - resume home gabapentin History Interval history: No new issues overnight Hospitalist Physical - Constitutional Vitals: Temp Pulse Resp BP Pulse Ox 98.1 F 84 22 119/66 93 04/03/21 04:23 04/03/21 04:23 04/03/21 04:23 04/03/21 04:23 04/03/21 07:47 General appearance: Present: no acute distress - EENT Eyes: Present: PERRL, EOM intact ENT: hearing intact, clear oral mucosa, dentition normal - Neck Neck: Present: supple, normal ROM - Respiratory Respiratory effort: normal Respiratory: bilateral: CTA - Cardiovascular Rhythm: regular Heart Sounds: Present: S1 & S2. Absent: gallop, rub - Extremities Extremities: no ischemia, No edema, Full ROM - Abdominal General gastrointestinal: soft, non-tender, non-distended, normal bowel sounds - Integumentary Integumentary: Present: clear, warm, dry - Neurologic Neurologic: CNII-XII intact, moves all extremities HEART Score - HEART Score Troponin: Troponin T 0.013 ng/mL (0.00-0.029) 03/28/21 Unknown Results - Labs CBC & Chem 7: 04/02/21 05:57 04/02/21 05:57 Labs: Laboratory Last Values WBC 13.6 K/mm3 (4.5-11.0) H 04/02/21 05:57 RBC 4.31 M/mm3 (3.65-5.03) 04/02/21 05:57 Hgb 12.9 gm/dl (11.8-15.2) 04/02/21 05:57 Hct 38.4 % (35.5-45.6) 04/02/21 05:57 MCV 89 fl (84-94) 04/02/21 05:57 MCH 30 pg (28-32) 04/02/21 05:57 MCHC 34 % (32-34) 04/02/21 05:57 RDW 15.7 % (13.2-15.2) H 04/02/21 05:57 Plt Count 186 K/mm3 (140-440) 04/02/21 05:57 Lymph % (Auto) 2.3 % (13.4-35.0) L 04/02/21 05:57 [place] % (Auto) 10.5 % (0.0-7.3) H 04/02/21 05:57 Eos % (Auto) 0.0 % (0.0-4.3) 04/02/21 05:57 Baso % (Auto) 1.2 % (0.0-1.8) 04/02/21 05:57 Lymph # (Auto) 0.3 K/mm3 (1.2-5.4) L 04/02/21 05:57 [place] # (Auto) 1.4 K/mm3 (0.0-0.8) H 04/02/21 05:57 Eos # (Auto) 0.0 K/mm3 (0.0-0.4) 04/02/21 05:57 Baso # (Auto) 0.2 K/mm3 (0.0-0.1) H 04/02/21 05:57 Seg Neutrophils % 86.0 % (40.0-70.0) H 04/02/21 05:57 Seg Neutrophils # 11.7 K/mm3 (1.8-7.7) H 04/02/21 05:57 PT 13.2 Sec. (12.2-14.9) 03/28/21 Unknown INR 0.95 (0.87-1.13) 03/28/21 Unknown APTT 38.7 Sec. (24.2-36.6) H 03/28/21 Unknown D-Dimer > 28594 ng/mlDDU (0-234) H 04/03/21 05:56 ABG pH 7.264 (7.320-7.450) L 03/29/21 20:03 POC ABG pCO2 42.0 mmHg (32.0-48.0) 03/29/21 20:03 POC ABG pO2 51.4 mmHg (83-108) L 03/29/21 20:03 POC ABG HCO3 18.6 03/29/21 20:03 ABG O2 Saturation 78.9 (0-100) 03/29/21 20:03 POC ABG Base Excess -8.0 03/29/21 20:03 ABG Hemoglobin 15.1 (12.0-17.5) 03/29/21 20:03 ABG Oxyhemoglobin 77.6 (94-98) L 03/29/21 20:03 ABG Methemoglobin 0.2 (0.0-1.5) 03/29/21 20:03 ABG Sodium 136.8 mmol/L (136.0-145.0) 03/29/21 20:03 ABG Potassium 4.0 mmol/L (3.40-4.50) 03/29/21 20:03 ABG Chloride 104.0 mmol/L (98-107) 03/29/21 20:03 ABG Glucose 275 mg/dL (65-95) H 03/29/21 20:03 Carboxyhemoglobin 1.5 (0.5-1.5) 03/29/21 20:03 FiO2 % 100.0 03/29/21 20:03 Sodium 140 mmol/L (137-145) 04/02/21 05:57 Potassium 3.7 mmol/L (3.6-5.0) 04/02/21 05:57 Chloride 106.0 mmol/L (98-107) 04/02/21 05:57 Carbon Dioxide 26 mmol/L (22-30) 04/02/21 05:57 Anion Gap 12 mmol/L 04/02/21 05:57 BUN 22 mg/dL (9-20) H 04/02/21 05:57 Creatinine 0.7 mg/dL (0.8-1.3) L 04/02/21 05:57 Estimated GFR > 60 ml/min 04/02/21 05:57 BUN/Creatinine Ratio 31 % 04/02/21 05:57 Glucose 149 mg/dL (75-100) H 04/02/21 05:57 POC Glucose 160 mg/dL (70-105) H 04/02/21 21:00 Lactic Acid 1.60 mmol/L (0.7-2.0) 03/28/21 Unknown Calcium 8.9 mg/dL (8.4-10.2) 04/02/21 05:57 Magnesium 2.60 mg/dL (1.7-2.3) H 03/29/21 02:30 Ferritin 1117.0 ng/mL (30.0-300.0) H 04/03/21 05:56 Total Bilirubin 0.90 mg/dL (0.1-1.2) 04/02/21 05:57 AST 42 units/L (5-40) H 04/02/21 05:57 ALT 32 units/L (7-56) 04/02/21 05:57 Alkaline Phosphatase 85 units/L (35-129) 04/02/21 05:57 Lactate Dehydrogenase 811 units/L (91-180) H 04/02/21 05:57 Troponin T 0.013 ng/mL (0.00-0.029) 03/28/21 Unknown C-Reactive Protein 1.20 mg/dL (0.00-1.30) 04/03/21 05:56 Total Protein 6.6 g/dL (6.3-8.2) 04/02/21 05:57 Albumin 3.0 g/dL (3.9-5) L 04/02/21 05:57 Albumin/Globulin Ratio 0.8 % 04/02/21 05:57 Procalcitonin 0.37 ng/mL (<0.15) 03/28/21 09:25 Arterial Blood Glucose 275 mg/dL (65-95) H 03/29/21 20:03 Arterial Blood Ionized Calcium 4.5 mg/dL (4.6-5.3) L 03/29/21 20:03 Urine Color [place] (Yellow) 03/28/21 Unknown Urine Turbidity Clear (Clear) 03/28/21 Unknown Urine pH 5.0 (5.0-7.0) 03/28/21 Unknown Ur Specific [place] 1.038 (1.003-1.030) H 03/28/21 Unknown Urine Protein >500 mg/dL (Negative) 03/28/21 Unknown Urine Glucose (UA) 50 mg/dL (Negative) 03/28/21 Unknown Urine Ketones Tr mg/dL (Negative) 03/28/21 Unknown Urine Blood Mod (Negative) 03/28/21 Unknown Urine Nitrite Neg (Negative) 03/28/21 Unknown Urine Bilirubin Neg (Negative) 03/28/21 Unknown Urine Urobilinogen 2.0 mg/dL (<2.0) 03/28/21 Unknown Ur Leukocyte Esterase Neg (Negative) 03/28/21 Unknown Urine WBC (Auto) 6.0 /HPF (0.0-6.0) 03/28/21 Unknown Urine RBC (Auto) 2.0 /HPF (0.0-6.0) 03/28/21 Unknown U Epithel Cells (Auto) < 1.0 /HPF (0-13.0) 03/28/21 Unknown Urine Mucus Few /HPF 03/28/21 Unknown Coronavirus (PCR) Positive (Negative) A 03/28/21 Unknown Microbiology: Microbiology 03/28/21 08:26 Peripheral/Venous Blood Culture - Final NO GROWTH AFTER 5 DAYS 03/28/21 08:26 Peripheral/Venous Blood Culture - Final NO GROWTH AFTER 5 DAYS [place]/IV: Voiding Method Urinal Active Medications - Current Medications Current Medications: Generic Name Dose Route Start Last Admin Trade Name Freq PRN Reason Stop Dose Admin Acetaminophen 650 mg 03/28/21 12:45 Acetaminophen 325 Mg Tab PO Q4H PRN Pain MILD(1-3)/Fever >100.5/IMRANDA Albuterol 2.5 mg 03/29/21 08:00 04/02/21 22:38 Albuterol 2.5 Mg/3 Ml Nebu IH 2.5 mg TIDRT LISSETTE Administration Aspirin 81 mg 03/29/21 10:00 04/02/21 10:57 Aspirin 81 Mg Tab Chew PO 81 mg QDAY LISSETTE Administration Benzonatate 100 mg 03/29/21 07:00 04/03/21 05:51 Benzonatate 100 Mg Cap PO 100 mg Q8HR LISSETTE Administration Budesonide 0.5 mg 03/28/21 14:00 04/02/21 22:38 Budesonide 0.5 Mg/2 Ml Nebu IH 0.5 mg BID LISSETTE Administration Carvedilol 25 mg 03/29/21 10:00 04/02/21 22:07 Carvedilol 25 Mg Tab PO 25 mg Q12HR LISSETTE Administration Enoxaparin Sodium 40 mg 03/28/21 14:00 04/02/21 10:56 Enoxaparin 40 Mg/0.4 Ml Inj SUB-Q 40 mg DAILY LISSETTE Administration Protocol Gabapentin 300 mg 03/29/21 18:00 04/02/21 19:07 Gabapentin 300 Mg Cap PO 300 mg QPM LISSETTE Administration Labetalol HCl 10 mg 03/28/21 15:34 Labetalol 20 Mg/4 Ml Inj IV Q6HR PRN sbp > 160, hold for hr < 70 Methylprednisolone Sodium Succinate 60 mg 03/31/21 18:00 04/03/21 05:51 Methylprednisolone Sod Succinate 125 Mg/2 Ml Inj IV 04/08/21 14:00 60 mg Q6HR LISSETTE Administration Miscellaneous Medication 20 mg 03/29/21 10:00 Leflunomide PO DAILY [facility] Ondansetron HCl 4 mg 03/28/21 12:45 Ondansetron 4 Mg/2 Ml Inj IV Q8H PRN Nausea And Vomiting Oxycodone/Acetaminophen 1 tab 03/28/21 12:45 04/01/21 10:36 Oxycodone /Acetaminophen 5-325mg Tab PO 1 tab Q6H PRN Administration Pain, Moderate (4-6) Pravastatin Sodium 40 mg 03/29/21 22:00 04/02/21 22:05 Pravastatin 40 Mg Tab PO 40 mg QHS LISSETTE Administration Sodium Chloride 10 ml 03/28/21 22:00 04/02/21 22:06 Sodium Chloride 0.9% 10 Ml Flush Syringe IV 10 ml BID LISSETTE Administration Sodium Chloride 10 ml 03/28/21 12:45 Sodium Chloride 0.9% 10 Ml Flush Syringe IV PRN PRN LINE FLUSH Nutrition/Malnutrition Assess - Dietary Evaluation Nutrition/Malnutrition Findings: Nutrition Notes Start: 03/29/21 14:40 Freq: Status: Active Protocol: Document 03/29/21 14:40 GB (Rec: 03/29/21 14:49 GB [id number]) Nutrition Notes Need for Assessment generated from: irrigator gravity flow Initial or Follow up Assessment Current Diagnosis Hypertension,Heart Failure Other Pertinent Diagnosis SOB Current Diet cardiac Labs/Tests 03/29: glucose 128, Mg 2.6 elevated x2 events, AST 64 elevated x2 events Pertinent Medications Azithromycin, Remdesevir, NaCl Height 5 ft 5 in Weight 83.7 kg [place] Body Weight (kg) 61.81 BMI 30.7 Intake Prior to Admission Fair Weight change and time frame No reported change in weight. Weight Status Obese Subjective/Other Information Admission notes report no change in weight, decrease in po intake related to decreased appetite and per H&P symptoms over past 2 days. Percent of energy/protein needs met: PO intake of 50% or greater of meals TID daily will meet 80% or greater of estimated energy needs. Burn Absent Trauma Absent GI Symptoms Diarrhea Food Allergy No Skin Integrity/Comment no reported skin complications Minimum of two criteria No #1 Nutrition Diagnosis Predicted suboptimal energy intake Comments: depending on duration and complications of possible covid and treatments Etiology SOB As Evidenced by Signs and Symptoms reported decreased PO r/t decreased appetite Is patient on ventilator? No Is Patient Ambulatory and/or Out of Bed Yes REE-([facility]-ambulatory/OOB) [ 1994.044 [id number]] Kcal/Kg value to use for calculation 22 Approximate Energy Requirements Using 1841 kcal/Kg Calculation Used for Recommendations Kcal/kg Additional Notes Protein: 0.8-1 g/kg @83k- 83g Fluids: 1 ml/kcal or per MD Nutrition Intervention Change Diet Order: continue Nutrition Support: n/a Add Supplement/Snack (indicate name/kcal Add supplement Ensure BID if /protein ) po intake of meals is less than 50%/day Goal #1 PO intake of meals to be 50% or greater TID daily for LOS Goal #2 Weight to maintain within +/-3 % current weight for LOS Follow-Up By: 04/03/21 Additional Comments nursing staff to monitor and record PO intake of meals daily.
[2021-04-03] MEDS: ENOXAPARIN 40 MG/0.4 ML INJ SUB-Q SCH (10:07)
[2021-04-03] MEDS: ASPIRIN 81 MG TAB CHEW PO SCH (10:07)
[2021-04-03] MEDS: carvediloL 25 MG TAB PO SCH ×2 (10:08→22:57)
[2021-04-03] MEDS: SACUBITRIL/VALSARTAN 49-51 MG TAB PO SCH ×2 (10:08→22:56)
--- NOTE | 2021-04-03 11:56 | Progress Note ---
Assessment and Plan 66-year-old male with past medical history of hypertension, congestive heart failure, NH 18 years ago presenting for complaint of shortness of breath of onset last Friday. Patient was seen and evaluated at our emergency department 2 days ago for similar symptoms. He was believed to have symptoms consistent with Covid 19 viral illness . He was discharged with prescriptions for Tessalon Perles and albuterol nebulizer and instructed to obtain outpatient COVID-19 testing. Patient states that over the course the last 2 days his sym ptoms progressively worsened. He had associated symptoms of fever, dry cough, poor p.o. intake, diarrhea and generalized weakness. Medications prescribed 2 days ago did not relieve symptoms. When patient had near syncopal event, who is a battery charger tester at our facility recommended he come back to our hospital to be evaluated and treated. On arrival patient was found to be hypoxic with saturations of 80%. This improved to 93% on my encounter, patient was on 4 L nasal cannula. Of note he does have a history of congestive heart failure. He could not remember the name of his current back padder however he did used to follow with Dr. Pabon from [facility]. He did not know what his ejection fraction was but did state he is currently taking Entresto and Coreg for his congestive heart failure. Moreover, patient has been vaccinated against COVID-19 receiving in both doses of the Pfizer vaccine back in . He denied any known sick contacts except for his who had similar symptoms but recovered uneventfully. She was not tested but is vaccinated against COVID-19. Patient has no history of smoking, alcohol or drug abuse. 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 ED Course: Azithromycin IV, Rocephin IV, Decadron IV, albuterol nebulizer Patient awake. Patients O2 requirement came down. Patient presently on 10 litres. O2 saturation 97%. Patient lying in prone position ABG on 100% FIO2 ABG pH 7.264 (7.320-7.450) L 03/29/21 20:03 POC ABG pCO2 42.0 mmHg (32.0-48.0) 03/29/21 20:03 POC ABG pO2 51.4 mmHg (83-108) L 03/29/21 20:03 POC ABG HCO3 18.6 03/29/21 20:03 ABG O2 Saturation 78.9 (0-100) 03/29/21 20:03 PT/INR, D-dimer Denies chest pain, shortness of breath. Has some non productive cough. Patient afebrile. Has mild leukocytosis. Blood pressure 126/71, Pulse 77 Chest xray done 03/28/21 reported Stable mild perihilar prominence. No consolidation, pleural effusion or pneumothorax. Patient has Angio CT of chest 03/28/21 reported No evidence of pulmonary thromboembolism . Extensive bilateral pneumonitis, probably viral . Patient presently on I/V solumedrol, S/C Lovenox, Famotidine, Albuterol inhaler and Budesonide aerosol treatments. Patient finished course of Ceftriaxone, Zithromax Taper O2 and maintain O2 saturation above 92%. I spent critical care time of 35 minutes on this patient, review the chart, examining the patient, review Chest xray, CTA of chest, review the labs, talking to the nursing and respiratory staff and work out plan of treatment in this critically ill COVID 19 Patient with COVID pneumonia and Acute hypoxic respiratory failure. - Patient Problems (1) Acute respiratory failure with hypoxia Current Visit: Yes Status: Acute Plan to address problem: High flow O2. Slowly taper O2 and maintain O2 saturation above 92%. BIPAP 20/10, rate 20, FIO2 100%. If still requires high flow O2. Continue I/V solumedrol Continue Albuterol inhaler Continue S/C Lovenox. Continue famotidine. (2) COVID-19 virus infection Current Visit: Yes Status: Acute Plan to address problem: Patient is on I/V Solumedrol. S/C Lovenox. Management as per infectious diseases. (3) Pneumonia due to COVID-19 virus Current Visit: Yes Status: Acute Plan to address problem: Patient was on ceftriaxone and Zithromax. (4) CAD (coronary artery disease) Current Visit: Yes Status: Acute Plan to address problem: Management as per cardiology. (5) HFrEF (heart failure with reduced ejection fraction) Current Visit: Yes Status: Acute Plan to address problem: Management as per cardiology. (6) HTN (hypertension) Current Visit: Yes Status: Acute Plan to address problem: Management as per primary care. Subjective Date of service: 04/03/21 Principal diagnosis: COVID-19 PNA Interval history: 66-year-old male with past medical history of hypertension, congestive heart failure, NH 18 years ago presenting for complaint of shortness of breath of onset last Friday. Patient was seen and evaluated at our emergency department 2 days ago for similar symptoms. He was believed to have symptoms consistent with Covid 19 viral illness . He was discharged with prescriptions for Tessalon Perles and albuterol nebulizer and instructed to obtain outpatient COVID-19 testing. Patient states that over the course the last 2 days his symptoms progressively worsened. He had associated symptoms of fever, dry cough, poor p.o. intake, diarrhea and generalized weakness. Medications prescribed 2 days ago did not relieve symptoms. When patient had near syncopal event, who is a battery charger tester at our facility recommended he come back to our hospital to be evaluated and treated. On arrival patient was found to be hypoxic with saturations of 80%. This improved to 93% on my encounter, patient was on 4 L nasal cannula. Of note he does have a history of congestive heart failure. He could not remember the name of his current back padder however he did used to follow with Dr. Pabon from [facility]. He did not know what his ejection fraction was but did state he is currently taking Entresto and Coreg for his congestive heart failure. Moreover, patient has been vaccinated against COVID-19 receiving in both doses of the Pfizer vaccine back in . He denied any known sick contacts except for his who had similar symptoms but recovered uneventfully. She was not tested but is vaccinated against COVID-19. Patient has no history of smoking, alcohol or drug abuse. 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 ED Course: Azithromycin IV, Rocephin IV, Decadron IV, albuterol nebulizer Patient awake. Patients O2 requirement came down. Patient presently on 10 litres. O2 saturation 97%. Patient lying in prone position. ABG on 100% FIO2 ABG pH 7.264 (7.320-7.450) L 03/29/21 20:03 POC ABG pCO2 42.0 mmHg (32.0-48.0) 03/29/21 20:03 POC ABG pO2 51.4 mmHg (83-108) L 03/29/21 20:03 POC ABG HCO3 18.6 03/29/21 20:03 ABG O2 Saturation 78.9 (0-100) 09/23/21 20:03 PT/INR, D-dimer Denies chest pain, shortness of breath. Has some non productive cough. Patient afebrile. Has leukocytosis. Blood pressure 143/87, Pulse 85 Chest xray done 03/28/21 reported Stable mild perihilar prominence. No consolidation, pleural effusion or pneumothorax. Patient has Angio CT of chest 03/28/21 reported No evidence of pulmonary t hromboembolism . Extensive bilateral pneumonitis, probably viral . Patient presently on I/V solumedrol, S/C Lovenox, Famotidine, Albuterol inhaler and Budesonide aerosol treatments. Patient finished course of Ceftriaxone, Zithromax Recommend to taper O2 slowly and keep O2 saturation above 92%. Objective Vital Signs - 12hr 04/03/21 04/03/21 04/03/21 01:33 04:23 05:58 Temperature 98.1 F Pulse Rate 84 Respiratory 22 Rate Blood Pressure 119/66 O2 Sat by Pulse 97 86 92 Oximetry 04/03/21 07:47 Temperature Pulse Rate Respiratory Rate Blood Pressure O2 Sat by Pulse 93 Oximetry Constitutional: no acute distress, alert, other (Sleepy but arousable.) Eyes: non-icteric ENT: oropharynx moist Neck: supple, no lymphadenopathy Effort: mildly labored Ascultation: Bilateral: rhonchi Cardiovascular: regular rate and rhythm Gastrointestinal: normoactive bowel sounds, soft, non-tender Integumentary: normal Extremities: no cyanosis, no edema Neurologic: normal mental status, non-focal exam, pupils equal and round Psychiatric: mood appropriate, affect normal CBC and BMP: 04/02/21 05:57 04/02/21 05:57 ABG, PT/INR, D-dimer: ABG ABG pH 7.264 (7.320-7.450) L 03/29/21 20:03 POC ABG pCO2 42.0 mmHg (32.0-48.0) 03/29/21 20:03 POC ABG pO2 51.4 mmHg (83-108) L 03/29/21 20:03 POC ABG HCO3 18.6 03/29/21 20:03 ABG O2 Saturation 78.9 (0-100) 03/29/21 20:03 PT/INR, D-dimer PT 13.2 Sec. (12.2-14.9) 03/28/21 Unknown INR 0.95 (0.87-1.13) 03/28/21 Unknown D-Dimer > 82506 ng/mlDDU (0-234) H 04/03/21 05:56 Abnormal lab findings: Abnormal Labs 03/28/21 03/28/21 03/28/21 08:26 09:25 09:25 WBC RDW Plt Count Lymph % (Auto) [place] % (Auto) Lymph # (Auto) [place] # (Auto) Baso # (Auto) Seg Neutrophils % Seg Neutrophils # APTT D-Dimer 1100.30 H ABG pH POC ABG pO2 ABG Oxyhemoglobin ABG Glucose Carbon Dioxide BUN Creatinine Glucose 109 H POC Glucose Magnesium 2.40 H Ferritin AST Lactate Dehydrogenase 677 H C-Reactive Protein 13.70 H Albumin Arterial Blood Glucose Arterial Blood Ionized Calcium Ur Specific [place] Coronavirus (PCR) 03/28/21 03/28/21 03/28/21 09:25 Unknown Unknown WBC RDW Plt Count 96 L Lymph % (Auto) 7.2 L [place] % (Auto) 10.8 H Lymph # (Auto) 0.5 L [place] # (Auto) Baso # (Auto) Seg Neutrophils % 81.8 H Seg Neutrophils # APTT D-Dimer ABG pH POC ABG pO2 ABG Oxyhemoglobin ABG Glucose Carbon Dioxide BUN Creatinine Glucose POC Glucose Magnesium Ferritin 1340.0 H AST Lactate Dehydrogenase C-Reactive Protein Albumin Arterial Blood Glucose Arterial Blood Ionized Calcium Ur Specific [place] 1.038 H Coronavirus (PCR) 03/28/21 03/28/21 03/28/21 Unknown Unknown Unknown WBC RDW Plt Count Lymph % (Auto) [place] % (Auto) Lymph # (Auto) [place] # (Auto) Baso # (Auto) Seg Neutrophils % Seg Neutrophils # APTT 38.7 H D-Dimer ABG pH POC ABG pO2 ABG Oxyhemoglobin ABG Glucose Carbon Dioxide BUN Creatinine Glucose 120 H POC Glucose Magnesium Ferritin AST 73 H Lactate Dehydrogenase C-Reactive Protein Albumin 3.4 L Arterial Blood Glucose Arterial Blood Ionized Calcium Ur Specific [place] Coronavirus (PCR) Positive A 03/29/21 03/29/21 03/29/21 02:30 02:30 02:30 WBC RDW 15.4 H Plt Count 107 L Lymph % (Auto) 5.6 L [place] % (Auto) 10.0 H Lymph # (Auto) 0.4 L [place] # (Auto) Baso # (Auto) Seg Neutrophils % 84.2 H Seg Neutrophils # APTT D-Dimer ABG pH POC ABG pO2 ABG Oxyhemoglobin ABG Glucose Carbon Dioxide BUN Creatinine Glucose 128 H POC Glucose Magnesium 2.60 H Ferritin AST 64 H Lactate Dehydrogenase C-Reactive Protein Albumin 3.1 L Arterial Blood Glucose Arterial Blood Ionized Calcium Ur Specific [place] Coronavirus (PCR) 03/29/21 03/29/21 03/29/21 15:30 19:48 20:03 WBC RDW Plt Count Lymph % (Auto) [place] % (Auto) Lymph # (Auto) [place] # (Auto) Baso # (Auto) Seg Neutrophils % Seg Neutrophils # APTT D-Dimer ABG pH 7.264 L POC ABG pO2 51.4 L ABG Oxyhemoglobin 77.6 L ABG Glucose 275 H Carbon Dioxide 21 L BUN Creatinine Glucose 125 H POC Glucose 189 H Magnesium Ferritin AST 64 H Lactate Dehydrogenase C-Reactive Protein Albumin 2.8 L Arterial Blood Glucose 275 H Arterial Blood Ionized Calcium 4.5 L Ur Specific [place] Coronavirus (PCR) 03/30/21 03/31/21 03/31/21 06:07 07:38 07:38 WBC 11.8 H RDW 15.4 H Plt Count Lymph % (Auto) 2.4 L [place] % (Auto) 8.4 H Lymph # (Auto) 0.3 L [place] # (Auto) 1.0 H Baso # (Auto) Seg Neutrophils % 89.0 H Seg Neutrophils # 10.5 H APTT D-Dimer > 61158 H ABG pH POC ABG pO2 ABG Oxyhemoglobin ABG Glucose Carbon Dioxide BUN Creatinine Glucose 131 H POC Glucose Magnesium Ferritin AST 49 H Lactate Dehydrogenase C-Reactive Protein Albumin 2.7 L Arterial Blood Glucose Arterial Blood Ionized Calcium Ur Specific [place] Coronavirus (PCR) 03/31/21 03/31/21 04/01/21 07:38 07:38 06:37 WBC RDW Plt Count Lymph % (Auto) [place] % (Auto) Lymph # (Auto) [place] # (Auto) Baso # (Auto) Seg Neutrophils % Seg Neutrophils # APTT D-Dimer ABG pH POC ABG pO2 ABG Oxyhemoglobin ABG Glucose Carbon Dioxide BUN Creatinine 0.7 L 0.7 L Glucose 122 H 117 H POC Glucose Magnesium Ferritin 1419.0 H AST 42 H 53 H Lactate Dehydrogenase 752 H C-Reactive Protein 4.40 H Albumin 2.9 L 3.2 L Arterial Blood Glucose Arterial Blood Ionized Calcium Ur Specific [place] Coronavirus (PCR) 04/02/21 04/02/21 04/02/21 05:57 05:57 05:57 WBC 13.6 H RDW 15.7 H Plt Count Lymph % (Auto) 2.3 L [place] % (Auto) 10.5 H Lymph # (Auto) 0.3 L [place] # (Auto) 1.4 H Baso # (Auto) 0.2 H Seg Neutrophils % 86.0 H Seg Neutrophils # 11.7 H APTT D-Dimer > 75045 H ABG pH POC ABG pO2 ABG Oxyhemoglobin ABG Glucose Carbon Dioxide BUN 22 H Creatinine 0.7 L Glucose 149 H POC Glucose Magnesium Ferritin AST 42 H Lactate Dehydrogenase 811 H C-Reactive Protein 2.00 H Albumin 3.0 L Arterial Blood Glucose Arterial Blood Ionized Calcium Ur Specific [place] Coronavirus (PCR) 04/02/21 04/02/21 04/03/21 05:57 21:00 05:56 WBC RDW Plt Count Lymph % (Auto) [place] % (Auto) Lymph # (Auto) [place] # (Auto) Baso # (Auto) Seg Neutrophils % Seg Neutrophils # APTT D-Dimer > 73113 H ABG pH POC ABG pO2 ABG Oxyhemoglobin ABG Glucose Carbon Dioxide BUN Creatinine Glucose POC Glucose 160 H Magnesium Ferritin 1180.0 H AST Lactate Dehydrogenase C-Reactive Protein Albumin Arterial Blood Glucose Arterial Blood Ionized Calcium Ur Specific [place] Coronavirus (PCR) 04/03/21 05:56 WBC RDW Plt Count Lymph % (Auto) [place] % (Auto) Lymph # (Auto) [place] # (Auto) Baso # (Auto) Seg Neutrophils % Seg Neutrophils # APTT D-Dimer ABG pH POC ABG pO2 ABG Oxyhemoglobin ABG Glucose Carbon Dioxide BUN Creatinine Glucose POC Glucose Magnesium Ferritin 1117.0 H AST Lactate Dehydrogenase C-Reactive Protein Albumin Arterial Blood Glucose Arterial Blood Ionized Calcium Ur Specific [place] Coronavirus (PCR)
--- NOTE | 2021-04-03 14:23 | Progress Note ---
Assessment and Plan Cultures: SARS CoV2 PCR: Positive 03/28/2021 blood culture: No growth A/P: 58-year-old male with hypertension, CHF, CAD admitted with cough, fever, shortness of breath, generalized weakness along with some loose stools: #Bilateral pneumonia: Secondary to COVID-19. Breakthrough infection. Vacci nated against COVID-19 with Pfizer back in Jul/Aug 2020. CTA negative for pulmonary thromboembolism, showed bilateral extensive pneumonitis. Elevated markers. Allergic reaction to remdesivir, hence stopped after 1st dose. #Acute hypoxic respiratory failure: Requiring salter nasal cannula. #Transaminitis: Likely secondary to COVID-19. #Thrombocytopenia #Rheumatoid arthritis, immunocompromised host: On leflunomide. #CHF Recs: continue steroids x 10 days D-dimer remains significantly elevated, f/u bilateral venous duplexes. Initial CTA on admission was negative for PE. prophylactic anticoagulation based on d-dimer per hospital protocol completed empiric abx due to mildly elevated procalcitonin, immunocompromised status trend d-dimer every 2-3 days. CRP has normalized guarded prognosis Tanya Hazel MD, FACP [facility] ([facility] O: [phone] F: [phone] Subjective Date of service: 04/03/21 Principal diagnosis: COVID-19 PNA Interval history: Afebrile. Remains on [place] Objective - Exam Narrative Exam: Physical Exam (reviewed in chart to minimize risk of transmission) Constitutional: deferred Head, Ears, Nose: deferred Eyes: deferred Neck: deferred Oral: deferred Cardiovascular: deferred Respiratory: deferred GI: deferred Musculoskeletal: deferred Skin: deferred Hem/Lymphatic: deferred Psych: deferred Neurological: deferred - Constitutional Vitals: Vital Signs Temp Pulse Resp BP Pulse Ox 98.0 F 85 18 143/87 91 04/03/21 11:33 04/03/21 11:33 04/03/21 11:33 04/03/21 11:33 04/03/21 11:33 Temperature -Last 24 Hours Temperature 98.0 F Temperature 98.1 F Temperature 97.7 F Temperature 98.9 F - Labs CBC & Chem 7: 04/02/21 05:57 04/02/21 05:57 Labs: Abnormal lab results 09/04/03/21 04/03/21 Range/Units 21:00 05:56 05:56 D-Dimer > 85614 H (0-234) ng/mlDDU POC Glucose 160 H (70-105) mg/dL Ferritin 1117.0 H (30.0-300.0) ng/mL
--- NOTE | 2021-04-03 14:47 | Vascular Lab Report ---
BILATERAL LOWER EXTREMITY VENOUS DOPPLER ULTRASOUND HISTORY: Elevated d-dimer, tachycardia. COMPARISON: None. TECHNIQUE: Grayscale, color and spectral Doppler imaging of the venous system of the bilateral lower extremities was performed. FINDINGS: RIGHT LOWER EXTREMITY: Greater saphenous vein:Normal venous flow, compressibility and augmentation. Visualized epigastric vein: Normal venous flow, compressibility and augmentation. Sapheno-femoral Junction: Normal venous flow, compressibility and augmentation. Common Femoral Vein: Normal venous flow, compressibility and augmentation. Femoral Vein: Normal venous flow, compressibility and augmentation. Profunda Femoral Vein: Normal venous flow, compressibility and augmentation. Popliteal Vein: Normal venous flow, compressibility and augmentation. Posterior tibial vein: Normal venous flow, compressibility and augmentation. LEFT LOWER EXTREMITY: Greater saphenous vein:Normal venous flow, compressibility and augmentation. Visualized epigastric vein: Normal venous flow, compressibility and augmentation. Sapheno-femoral Junction: Normal venous flow, compressibility and augmentation. Common Femoral Vein: Normal venous flow, compressibility and augmentation. Femoral Vein: Normal venous flow, compressibility and augmentation. Profunda Femoral Vein: Normal venous flow, compressibility and augmentation. Popliteal Vein: Normal venous flow, compressibility and augmentation. Posterior tibial vein: Normal venous flow, compressibility and augmentation. IMPRESSION: No sonographic evidence of deep venous thrombosis within the bilateral lower extremities. Signer Name: Aric Koenig MD Signed: 04/03/2021 2:43 PM Workstation Name: [id number]
[2021-04-03] MEDS: GABAPENTIN 300 MG CAP PO SCH (18:05)
[2021-04-03] MEDS: ALBUTEROL 2.5 MG/3 ML NEBU IH SCH ×3 (18:30→22:07)
[2021-04-03] MEDS: BUDESONIDE 0.5 MG/2 ML NEBU IH SCH ×2 (19:55→22:06)
[2021-04-03] MEDS: PRAVASTATIN 40 MG TAB PO SCH (22:57)
[2021-04-04] MEDS: methylPREDNISolone Sod Succinate 125 MG/2 ML INJ IV SCH ×5 (01:15→23:35)
[2021-04-04] MEDS: BENZONATATE 100 MG CAP PO SCH ×3 (06:55→22:46)
--- NOTE | 2021-04-04 09:37 | Progress Note ---
Assessment and Plan Assessment and plan: 58-year-old male with past medical history of hypertension, congestive heart failure, [place] 18 years ago presenting for complaint of shortness of breath of onset last Friday. Patient states that over the course the last 2 days his symptoms progressively worsened. He had associated symptoms of fever, dry cough, poor p.o. intake, diarrhea and generalized weakness. Ongoing evaluation and treatment for covid pneumonia Hospital Course: 03/29/2021: Cardiology evaluated patient due to 5 beats NSVT. Increased coreg, continue entresto. Patient follows with Dr Martinez. ID evaluated patient, Remdesivir started. Will continue supportive care. 03/30/2021: Respiratory distress overnight. LIkely an allergic reaction to remdesivir. Remdesivir has since been discontinued. Was on BIPAP on encounter and has since been dropped to 15 l/min salter nc. Continue supportive management. Will order inflammatory markers. 03/31/2021: Remains on salter nc 15l /min. sats 88-90% but in no distress. Continue supporitve management. Increased steroids to 60 q6hr. Obtained Pulmonology consult. CXR ordered, will follow. 04/01/2021: Remains on salter nc 12l /min. sats 88-90% but in no distress. Titrate down O2 requirements, ok with sats > 88%. Continue supporitve management. Lasix 20 mg IV x 1 ordered. 04/02/2021: Remains on salter nc 12l /min. Able to ambulate without any distress but does desaturate to 78%. Sats 88-90% when resting. Titrate down O2 requirements, ok with sats > 88%. Lasix 40 mg IV twice daily x 2 doses ordered. Continue supportive management 04/03/2021. Remains on salter nc but decreased from 12l /min to 8 L/min. Titrate down O2 requirements, ok with sats > 88%. Continue Lasix as needed 04/04/2021. Patient's oxygen was decreased to 10 L/min but was noted to have desaturation into the 70s. Therefore, patient was placed on 15 L with nonrebreather. Continue prone positioning as able. Patient has significantly elevated D-dimer. However, Doppler studies and CTA of chest were negative. Continue to trend D-dimer along with other inflammatory markers. Prognosis is guarded Assessment and Plan: 1. Acute hypoxic respiratory failure -Symptoms of shortness of breath, dry cough, fever, decreased appetite. High suspicion for Covid PNA. -Febrile 101.4 F, elevated inflammatory markers on admission -CTA chest: Negative for PE, findings consistent with bilateral viral pneumonia. Please refer to official radiology report ED course: Azithromycin IV, Rocephin IV, Decadron IV, albuterol nebulizer -Supplemental oxygen via nasal cannula, de-escalate as patient tolerates Covid therapies as below Albuterol and budesonide inhalers ordered 2. Suspected COVID-19 infection -Patient was vaccinated. Received both doses of [employer] vaccine back in had similar symptoms however she recovered uneventfully Empiric antibiotic coverage with azithromycin IV, Rocephin IV. Procalcitonin ordered, will follow -Decadron 8 mg IV daily x10 days total therapy -DVT prophylaxis dosing Lovenox May be a candidate for Remdesivir however transaminitis noted. Will defer to ID. May be a candidate for Actemra , elevated CRP Infectious disease consulted 3. Sepsis Suspect viral pneumonia as source, temp 101.4F, tachycardic 111 bpm Blood cultures ordered in emergency department 4. Transaminitis -Elevated AST to 73. Likely due to underlying Covid viral illness May be a candidate for remdesivir as it is not greater than 4 times upper limit of normal 5. Chronic congestive heart failure -Resume home coreg, entresto -coreg increased by cardiology 6. Essential hypertension -Resume home coreg, entresto 7. Hyperlipidemia - resume home simvastatin 8. History of Rheumatoid Arthritis - resume home leflunamide 9. Peripheral neuropathy - resume home gabapentin History Interval history: No new issues overnight Hospitalist Physical - Constitutional Vitals: Temp Pulse Resp BP Pulse Ox 98.6 F 75 20 129/79 98 04/04/21 00:24 04/04/21 00:24 04/04/21 00:24 04/04/21 00:04/04/21 00:24 General appearance: Present: no acute distress - EENT Eyes: Present: PERRL, EOM intact ENT: hearing intact, clear oral mucosa, dentition normal - Neck Neck: Present: supple, normal ROM - Respiratory Respiratory effort: normal Respiratory: bilateral: CTA - Cardiovascular Rhythm: regular Heart Sounds: Present: S1 & S2. Absent: gallop, rub - Extremities Extremities: no ischemia, No edema, Full ROM - Abdominal General gastrointestinal: soft, non-tender, non-distended, normal bowel sounds - Integumentary Integumentary: Present: clear, warm, dry - Neurologic Neurologic: CNII-XII intact, moves all extremities HEART Score - HEART Score Troponin: Troponin T 0.013 ng/mL (0.00-0.029) 03/28/21 Unknown Results - Labs CBC & Chem 7: 04/02/21 05:57 04/02/21 05:57 Labs: Laboratory Last Values WBC 13.6 K/mm3 (4.5-11.0) H 04/02/21 05:57 RBC 4.31 M/mm3 (3.65-5.03) 04/02/21 05:57 Hgb 12.9 gm/dl (11.8-15.2) 04/02/21 05:57 Hct 38.4 % (35.5-45.6) 04/02/21 05:57 MCV 89 fl (84-94) 04/02/21 05:57 MCH 30 pg (28-32) 04/02/21 05:57 MCHC 34 % (32-34) 04/02/21 05:57 RDW 15.7 % (13.2-15.2) H 04/02/21 05:57 Plt Count 186 K/mm3 (140-440) 04/02/21 05:57 Lymph % (Auto) 2.3 % (13.4-35.0) L 04/02/21 05:57 [place] % (Auto) 10.5 % (0.0-7.3) H 04/02/21 05:57 Eos % (Auto) 0.0 % (0.0-4.3) 04/02/21 05:57 Baso % (Auto) 1.2 % (0.0-1.8) 04/02/21 05:57 Lymph # (Auto) 0.3 K/mm3 (1.2-5.4) L 04/02/21 05:57 [place] # (Auto) 1.4 K/mm3 (0.0-0.8) H 04/02/21 05:57 Eos # (Auto) 0.0 K/mm3 (0.0-0.4) 04/02/21 05:57 Baso # (Auto) 0.2 K/mm3 (0.0-0.1) H 04/02/21 05:57 Seg Neutrophils % 86.0 % (40.0-70.0) H 04/02/21 05:57 Seg Neutrophils # 11.7 K/mm3 (1.8-7.7) H 04/02/21 05:57 PT 13.2 Sec. (12.2-14.9) 03/28/21 Unknown INR 0.95 (0.87-1.13) 03/28/21 Unknown APTT 38.7 Sec. (24.2-36.6) H 03/28/21 Unknown D-Dimer > 12347 ng/mlDDU (0-234) H 04/03/21 05:56 ABG pH 7.264 (7.320-7.450) L 03/29/21 20:03 POC ABG pCO2 42.0 mmHg (32.0-48.0) 03/29/21 20:03 POC ABG pO2 51.4 mmHg (83-108) L 03/29/21 20:03 POC ABG HCO3 18.6 03/29/21 20:03 ABG O2 Saturation 78.9 (0-100) 03/29/21 20:03 POC ABG Base Excess -8.0 03/29/21 20:03 ABG Hemoglobin 15.1 (12.0-17.5) 03/29/21 20:03 ABG Oxyhemoglobin 77.6 (94-98) L 03/29/21 20:03 ABG Methemoglobin 0.2 (0.0-1.5) 03/29/21 20:03 ABG Sodium 136.8 mmol/L (136.0-145.0) 03/29/21 20:03 ABG Potassium 4.0 mmol/L (3.40-4.50) 03/29/21 20:03 ABG Chloride 104.0 mmol/L (98-107) 03/29/21 20:03 ABG Glucose 275 mg/dL (65-95) H 03/29/21 20:03 Carboxyhemoglobin 1.5 (0.5-1.5) 03/29/21 20:03 FiO2 % 100.0 03/29/21 20:03 Sodium 140 mmol/L (137-145) 04/02/21 05:57 Potassium 3.7 mmol/L (3.6-5.0) 04/02/21 05:57 Chloride 106.0 mmol/L (98-107) 04/02/21 05:57 Carbon Dioxide 26 mmol/L (22-30) 04/02/21 05:57 Anion Gap 12 mmol/L 04/02/21 05:57 BUN 22 mg/dL (9-20) H 04/02/21 05:57 Creatinine 0.7 mg/dL (0.8-1.3) L 04/02/21 05:57 Estimated GFR > 60 ml/min 04/02/21 05:57 BUN/Creatinine Ratio 31 % 04/02/21 05:57 Glucose 149 mg/dL (75-100) H 04/02/21 05:57 POC Glucose 160 mg/dL (70-105) H 04/02/21 21:00 Lactic Acid 1.60 mmol/L (0.7-2.0) 03/28/21 Unknown Calcium 8.9 mg/dL (8.4-10.2) 04/02/21 05:57 Magnesium 2.60 mg/dL (1.7-2.3) H 03/29/21 02:30 Ferritin 1117.0 ng/mL (30.0-300.0) H 04/03/21 05:56 Total Bilirubin 0.90 mg/dL (0.1-1.2) 04/02/21 05:57 AST 42 units/L (5-40) H 04/02/21 05:57 ALT 32 units/L (7-56) 04/02/21 05:57 Alkaline Phosphatase 85 units/L (35-129) 04/02/21 05:57 Lactate Dehydrogenase 811 units/L (91-180) H 04/02/21 05:57 Troponin T 0.013 ng/mL (0.00-0.029) 03/28/21 Unknown C-Reactive Protein 1.20 mg/dL (0.00-1.30) 04/03/21 05:56 Total Protein 6.6 g/dL (6.3-8.2) 04/02/21 05:57 Albumin 3.0 g/dL (3.9-5) L 04/02/21 05:57 Albumin/Globulin Ratio 0.8 % 04/02/21 05:57 Procalcitonin 0.37 ng/mL (<0.15) 03/28/21 09:25 Arterial Blood Glucose 275 mg/dL (65-95) H 03/29/21 20:03 Arterial Blood Ionized Calcium 4.5 mg/dL (4.6-5.3) L 03/29/21 20:03 Urine Color [place] (Yellow) 03/28/21 Unknown Urine Turbidity Clear (Clear) 03/28/21 Unknown Urine pH 5.0 (5.0-7.0) 03/28/21 Unknown Ur Specific [place] 1.038 (1.003-1.030) H 03/28/21 Unknown Urine Protein >500 mg/dL (Negative) 03/28/21 Unknown Urine Glucose (UA) 50 mg/dL (Negative) 03/28/21 Unknown Urine Ketones Tr mg/dL (Negative) 03/28/21 Unknown Urine Blood Mod (Negative) 03/28/21 Unknown Urine Nitrite Neg (Negative) 03/28/21 Unknown Urine Bilirubin Neg (Negative) 03/28/21 Unknown Urine Urobilinogen 2.0 mg/dL (<2.0) 03/28/21 Unknown Ur Leukocyte Esterase Neg (Negative) 03/28/21 Unknown Urine WBC (Auto) 6.0 /HPF (0.0-6.0) 03/28/21 Unknown Urine RBC (Auto) 2.0 /HPF (0.0-6.0) 03/28/21 Unknown U Epithel Cells (Auto) < 1.0 /HPF (0-13.0) 03/28/21 Unknown Urine Mucus Few /HPF 03/28/21 Unknown Coronavirus (PCR) Positive (Negative) A 03/28/21 Unknown [place]/IV: Voiding Method Toilet Active Medications - Current Medications Current Medications: Generic Name Dose Route Start Last Admin Trade Name Freq PRN Reason Stop Dose Admin Acetaminophen 650 mg 03/28/21 12:45 Acetaminophen 325 Mg Tab PO Q4H PRN Pain MILD(1-3)/Fever >100.5/MIRANDA Albuterol 2.5 mg 03/29/21 08:00 04/03/21 22:07 Albuterol 2.5 Mg/3 Ml Nebu IH Not Given TIDRT LISSETTE Aspirin 81 mg 03/29/21 10:00 04/03/21 10:07 Aspirin 81 Mg Tab Chew PO 81 mg QDAY LISSETTE Administration Benzonatate 100 mg 03/29/21 07:00 04/04/21 06:55 Benzonatate 100 Mg Cap PO 100 mg Q8HR LISSETTE Administration Budesonide 0.5 mg 03/28/21 14:00 04/03/21 22:06 Budesonide 0.5 Mg/2 Ml Nebu IH Not Given BID LISSETTE Carvedilol 25 mg 03/29/21 10:00 04/03/21 22:57 Carvedilol 25 Mg Tab PO 25 mg Q12HR LISSETTE Administration Enoxaparin Sodium 40 mg 03/28/21 14:00 04/03/21 10:07 Enoxaparin 40 Mg/0.4 Ml Inj SUB-Q 40 mg DAILY LISSETTE Administration Protocol Gabapentin 300 mg 03/29/21 18:00 04/03/21 18:05 Gabapentin 300 Mg Cap PO 300 mg QPM LISSETTE Administration Labetalol HCl 10 mg 03/28/21 15:34 Labetalol 20 Mg/4 Ml Inj IV Q6HR PRN sbp > 160, hold for hr < 70 Methylprednisolone Sodium Succinate 60 mg 03/31/21 18:00 04/04/21 06:55 Methylprednisolone Sod Succinate 125 Mg/2 Ml Inj IV 04/08/21 14:00 60 mg Q6HR LISSETTE Administration Miscellaneous Medication 20 mg 03/29/21 10:00 Leflunomide PO DAILY [facility] Ondansetron HCl 4 mg 03/28/21 12:45 Ondansetron 4 Mg/2 Ml Inj IV Q8H PRN Nausea And Vomiting Oxycodone/Acetaminophen 1 tab 03/28/21 12:45 04/01/21 10:36 Oxycodone /Acetaminophen 5-325mg Tab PO 1 tab Q6H PRN Administration Pain, Moderate (4-6) Pravastatin Sodium 40 mg 03/29/21 22:00 04/03/21 22:57 Pravastatin 40 Mg Tab PO 40 mg QHS LISSETTE Administration Sodium Chloride 10 ml 03/28/21 22:00 04/03/21 22:58 Sodium Chloride 0.9% 10 Ml Flush Syringe IV 10 ml BID LISSETTE Administration Sodium Chloride 10 ml 03/28/21 12:45 Sodium Chloride 0.9% 10 Ml Flush Syringe IV PRN PRN LINE FLUSH Nutrition/Malnutrition Assess - Dietary Evaluation Nutrition/Malnutrition Findings: Nutrition Notes Start: 03/29/21 14:40 Freq: Status: Active Protocol: Document 04/03/21 14:34 GB (Rec: 04/03/21 14:41 GB [id number]) Nutrition Notes Initial or Follow up Reassessment Current Diagnosis Hypertension,Heart Failure Other Pertinent Diagnosis SOB Current Diet cardiac Labs/Tests 04/02: BUN 22, creatinine 0.7, glucose 149, AST 42 Pertinent Medications reviewed Height 5 ft 5 in Weight 86.6 kg [place] Body Weight (kg) 61.81 BMI 31.7 Weight change and time frame +7 kg from admit. +8% gain. Weight Status Obese Subjective/Other Information PO intake of meals recorded at 75% or greater and independent with meals. Percent of energy/protein needs met: PO intake of 75% or greater of meals TID daily will meet 90% or greater of estimated energy needs. Burn Absent Trauma Absent GI Symptoms None Food Allergy No Skin Integrity/Comment no reported skin complications Current % PO Good (75-100%) Minimum of two criteria No #1 Nutrition Diagnosis Predicted suboptimal energy intake Comments: depending on duration and complications of possible covid and treatments 04/03: PO intake of meals recorded at 75% or greater Etiology SOB As Evidenced by Signs and Symptoms reported decreased PO r/t decreased appetite Diagnosis Progress(for reassessment Improved documentation) Is patient on ventilator? No Is Patient Ambulatory and/or Out of Bed Yes [facility] [ [id number]] Kcal/Kg value to use for calculation 22 Approximate Energy Requirements Using 1905 kcal/Kg Calculation Used for Recommendations Kcal/kg Additional Notes Protein: 0.8-1 g/kg @83k- 83g Fluids: 1 ml/kcal or per MD Nutrition Intervention Change Diet Order: continue Nutrition Support: n/a Add Supplement/Snack (indicate name/kcal n/a /protein ) Goal #1 PO intake of meals to be 50% or greater TID daily for LOS 04/03: met - 75% or greater, continues Goal #2 Weight to maintain within +/-3 % current weight for LOS 04/03: +8% gain, not met, continues: weight change could be resulted from medication regime Follow-Up By: 04/10/21 Additional Comments nursing staff to monitor and record PO intake of meals daily - continues
[2021-04-04] MEDS: SACUBITRIL/VALSARTAN 49-51 MG TAB PO SCH ×2 (10:42→22:46)
[2021-04-04] MEDS: ENOXAPARIN 40 MG/0.4 ML INJ SUB-Q SCH (10:42)
[2021-04-04] MEDS: carvediloL 25 MG TAB PO SCH ×2 (10:42→22:47)
[2021-04-04] MEDS: ASPIRIN 81 MG TAB CHEW PO SCH (10:42)
--- NOTE | 2021-04-04 12:17 | Progress Note ---
Assessment and Plan Cultures: SARS CoV2 PCR: Positive 03/28/2021 blood culture: No growth A/P: 58-year-old male with hypertension, CHF, CAD admitted with cough, fever, shortness of breath, generalized weakness along with some loose stools: #Bilateral pneumonia: Secondary to COVID-19. Breakthrough infection. Vacci nated against COVID-19 with Pfizer back in Aug 2020. CTA negative for pulmonary thromboembolism, showed bilateral extensive pneumonitis. Elevated markers. Allergic reaction to remdesivir, hence stopped after 1st dose. #Acute hypoxic respiratory failure: Requiring salter nasal cannula. #Transaminitis: Likely secondary to COVID-19. #Thrombocytopenia #Rheumatoid arthritis, immunocompromised host: On leflunomide. #CHF Recs: continue steroids x 10 days not a candidate for Actemra D-dimer remains significantly elevated, bilateral venous duplexes negative for DVT, initial CTA on admission was negative for PE. prophylactic anticoagulation based on d-dimer per hospital protocol completed empiric abx due to mildly elevated procalcitonin, immunocompromised status trend d-dimer every 2-3 days. CRP has normalized guarded prognosis Tanya Hazel MD, FACP [facility], [facility] ([facility] O: [phone] F: [phone] Subjective Date of service: 04/04/21 Principal diagnosis: COVID-19 PNA Interval history: Afebrile. Remains hypoxic requiring 15L NRB. Objective - Exam Narrative Exam: Physical Exam (reviewed in chart to minimize risk of transmission) Constitutional: deferred Head, Ears, Nose: deferred Eyes: deferred Neck: deferred Oral: deferred Cardiovascular: deferred Respiratory: deferred GI: deferred Musculoskeletal: deferred Skin: deferred Hem/Lymphatic: deferred Psych: deferred Neurological: deferred - Constitutional Vitals: Vital Signs Temp Pulse Resp BP Pulse Ox 98.6 F 75 20 129/79 94 04/04/21 00:24 04/04/21 00:24 04/04/21 00:24 04/04/21 00:24 04/04/21 08:37 Temperature -Last 24 Hours Temperature 98.6 F - Labs CBC & Chem 7: 04/02/21 05:57 04/02/21 05:57
[2021-04-04] MEDS: BUDESONIDE 0.5 MG/2 ML NEBU IH SCH (14:48)
[2021-04-04] MEDS: ALBUTEROL 2.5 MG/3 ML NEBU IH SCH ×2 (14:48→14:49)
[2021-04-04] MEDS: GABAPENTIN 300 MG CAP PO SCH (18:41)
--- NOTE | 2021-04-04 20:21 | Progress Note ---
Assessment and Plan 66-year-old male with past medical history of hypertension, congestive heart failure, VT 18 years ago presenting for complaint of shortness of breath of onset last Friday. Patient was seen and evaluated at our emergency department 2 days ago for similar symptoms. He was believed to have symptoms consistent with Covid 19 viral illness . He was discharged with prescriptions for Tessalon Perles and albuterol nebulizer and instructed to obtain outpatient COVID-19 testing. Patient states that over the course the last 2 days his sym ptoms progressively worsened. He had associated symptoms of fever, dry cough, poor p.o. intake, diarrhea and generalized weakness. Medications prescribed 2 days ago did not relieve symptoms. When patient had near syncopal event, who is a chargemaster specialist at our facility recommended he come back to our hospital to be evaluated and treated. On arrival patient was found to be hypoxic with saturations of 80%. This improved to 93% on my encounter, patient was on 4 L nasal cannula. Of note he does have a history of congestive heart failure. He could not remember the name of his current attendant children's institution however he did used to follow with Dr. Pabon from [facility], [facility]. He did not know what his ejection fraction was but did state he is currently taking Entresto and Coreg for his congestive heart failure. Moreover, patient has been vaccinated against COVID-19 receiving in both doses of the Pfizer vaccine back in . He denied any known sick contacts except for his who had similar symptoms but recovered uneventfully. She was not tested but is vaccinated against COVID-19. Patient has no history of smoking, alcohol or drug abuse. 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 ED Course: Azithromycin IV, Rocephin IV, Decadron IV, albuterol nebulizer Patient awake. Sitting up in chair. Patient presently on non rebreathing mask. O2 saturation 96%. ABG on 100% FIO2 ABG pH 7.264 (7.320-7.450) L 03/29/21 20:03 POC ABG pCO2 42.0 mmHg (32.0-48.0) 03/29/21 20:03 POC ABG pO2 51.4 mmHg (83-108) L 03/29/21 20:03 POC ABG HCO3 18.6 03/29/21 20:03 ABG O2 Saturation 78.9 (0-100) 03/29/21 20:03 PT/INR, D-dimer Patient Denies chest pain, shortness of breath or cough at rest. Patient afebrile. Has leukocytosis. Blood pressure 134/67, Pulse 66 Chest xray done 03/28/21 reported Stable mild perihilar prominence. No consolidation, pleural effusion or pneumothorax. Patient has Angio CT of chest 03/28/21 reported No evidence of pulmonary thromboembolism . Extensive bilateral pneumonitis, probably viral . Patient presently on I/V solumedrol, S/C Lovenox, Benzonatate, Albuterol inhaler and Budesonide aerosol treatments. Patient finished course of Ceftriaxone, Zithromax Recommend to taper O2 slowly and keep O2 saturation above 92%. I spent critical care time of 35 minutes on this patient, review the chart, examining the patient, review Chest xray, CTA of chest, review the labs, talking to the nursing and respiratory staff and work out plan of treatment in this critically ill COVID 19 Patient with COVID pneumonia and Acute hypoxic respiratory failure. - Patient Problems (1) Acute respiratory failure with hypoxia Current Visit: Yes Status: Acute Plan to address problem: Patient presently on non rebreathing mask. BIPAP 20/10, rate 20, FIO2 100%. If still requires high flow O2. Continue I/V solumedrol Continue Albuterol inhaler Continue S/C Lovenox. Continue famotidine. (2) COVID-19 virus infection Current Visit: Yes Status: Acute Plan to address problem: Patient is on I/V Solumedrol. S/C Lovenox. Management as per infectious diseases. (3) Pneumonia due to COVID-19 virus Current Visit: Yes Status: Acute Plan to address problem: Patient was on ceftriaxone and Zithromax. (4) CAD (coronary artery disease) Current Visit: Yes Status: Acute Plan to address problem: Management as per cardiology. (5) HFrEF (heart failure with reduced ejection fraction) Current Visit: Yes Status: Acute Plan to address problem: Management as per cardiology. (6) HTN (hypertension) Current Visit: Yes Status: Acute Plan to address problem: Management as per primary care. Subjective Date of service: 04/04/21 Principal diagnosis: COVID-19 PNA Interval history: 66-year-old male with past medical history of hypertension, congestive heart failure, VT 18 years ago presenting for complaint of shortness of breath of onset last Friday. Patient was seen and evaluated at our emergency department 2 days ago for similar symptoms. He was believed to have symptoms consistent with Covid 19 viral illness . He was discharged with prescriptions for Tessalon Perles and albuterol nebulizer and instructed to obtain outpatient COVID-19 testing. Patient states that over the course the last 2 days his symptoms progressively worsened. He had associated symptoms of fever, dry cough, poor p.o. intake, diarrhea and generalized weakness. Medications prescribed 2 days ago did not relieve symptoms. When patient had near syncopal event, who is a chargemaster specialist at our facility recommended he come back to our hospital to be evaluated and treated. On arrival patient was found to be hypoxic with saturations of 80%. This improved to 93% on my encounter, patient was on 4 L nasal cannula. Of note he does have a history of congestive heart failure. He could not remember the name of his current attendant children's institution however he did used to follow with Dr. Pabon from [facility], [facility]. He did not know what his ejection fraction was bu t did state he is currently taking Entresto and Coreg for his congestive heart failure. Moreover, patient has been vaccinated against COVID-19 receiving in both doses of the Pfizer vaccine back in . He denied any known sick contacts except for his who had similar symptoms but recovered uneventfully. She was not tested but is vaccinated against COVID-19. Patient has no history of smoking, alcohol or drug abuse. 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 ED Course: Azithromycin IV, Rocephin IV, Decadron IV, albuterol nebulizer Patient awake. Sitting up in chair. Patient presently on non rebreathing mask. O2 saturation 96%. ABG on 100% FIO2 ABG pH 7.264 (7.320-7.450) L 03/29/21 20:03 POC ABG pCO2 42.0 mmHg (32.0-48.0) 03/29/21 20:03 POC ABG pO2 51.4 mmHg (83-108) L 03/29/21 20:03 POC ABG HCO3 18.6 03/29/21 20:03 ABG O2 Saturation 78.9 (0-100) 03/29/21 20:03 PT/INR, D-dimer Denies chest pain, shortness of breath or cough at rest. Patient afebrile. Has leukocytosis. Blood pressure 134/67, Pulse 66 Chest xray done 03/28/21 reported Stable mild perihilar prominence. No consolidation, pleural effusion or pneumothorax. Patient has Angio CT of chest 03/28/21 reported No evidence of pulmonary thro mboembolism . Extensive bilateral pneumonitis, probably viral . Patient presently on I/V solumedrol, S/C Lovenox, Benzonatate, Albuterol inhaler and Budesonide aerosol treatments. Patient finished course of Ceftriaxone, Zithromax Recommend to taper O2 slowly and keep O2 saturation above 92%. Objective Vital Signs - 12hr 04/04/21 04/04/21 04/04/21 08:37 10:00 11:37 Temperature 97.9 F Pulse Rate 79 Respiratory 18 Rate Blood Pressure 111/76 O2 Sat by Pulse 94 91 99 Oximetry 04/04/21 04/04/21 15:30 18:13 Temperature 98.4 F Pulse Rate 73 Respiratory 18 Rate Blood Pressure 134/79 O2 Sat by Pulse 95 100 Oximetry Constitutional: no acute distress, alert Eyes: non-icteric ENT: oropharynx moist Neck: supple, no lymphadenopathy Effort: mildly labored Ascultation: Bilateral: rhonchi Cardiovascular: regular rate and rhythm Gastrointestinal: normoactive bowel sounds, soft, non-tender Integumentary: normal Extremities: no cyanosis, no edema Neurologic: normal mental status, non-focal exam, pupils equal and round Psychiatric: mood appropriate, affect normal CBC and BMP: 04/02/21 05:57 04/02/21 05:57 ABG, PT/INR, D-dimer: ABG ABG pH 7.264 (7.320-7.450) L 03/29/21 20:03 POC ABG pCO2 42.0 mmHg (32.0-48.0) 03/29/21 20:03 POC ABG pO2 51.4 mmHg (83-108) L 03/29/21 20:03 POC ABG HCO3 18.6 03/29/21 20:03 ABG O2 Saturation 78.9 (0-100) 03/29/21 20:03 PT/INR, D-dimer PT 13.2 Sec. (12.2-14.9) 03/28/21 Unknown INR 0.95 (0.87-1.13) 03/28/21 Unknown D-Dimer > 49207 ng/mlDDU (0-234) H 04/03/21 05:56 Abnormal lab findings: Abnormal Labs 03/28/21 03/28/21 03/28/21 08:26 09:25 09:25 WBC RDW Plt Count Lymph % (Auto) [place] % (Auto) Lymph # (Auto) [place] # (Auto) Baso # (Auto) Seg Neutrophils % Seg Neutrophils # APTT D-Dimer 1100.30 H ABG pH POC ABG pO2 ABG Oxyhemoglobin ABG Glucose Carbon Dioxide BUN Creatinine Glucose 109 H POC Glucose Magnesium 2.40 H Ferritin AST Lactate Dehydrogenase 677 H C-Reactive Protein 13.70 H Albumin Arterial Blood Glucose Arterial Blood Ionized Calcium Ur Specific [place] Coronavirus (PCR) 03/28/21 03/28/21 03/28/21 09:25 Unknown Unknown WBC RDW Plt Count 96 L Lymph % (Auto) 7.2 L [place] % (Auto) 10.8 H Lymph # (Auto) 0.5 L [place] # (Auto) Baso # (Auto) Seg Neutrophils % 81.8 H Seg Neutrophils # APTT D-Dimer ABG pH POC ABG pO2 ABG Oxyhemoglobin ABG Glucose Carbon Dioxide BUN Creatinine Glucose POC Glucose Magnesium Ferritin 1340.0 H AST Lactate Dehydrogenase C-Reactive Protein Albumin Arterial Blood Glucose Arterial Blood Ionized Calcium Ur Specific [place] 1.038 H Coronavirus (PCR) 03/28/21 03/28/21 03/28/21 Unknown Unknown Unknown WBC RDW Plt Count Lymph % (Auto) [place] % (Auto) Lymph # (Auto) [place] # (Auto) Baso # (Auto) Seg Neutrophils % Seg Neutrophils # APTT 38.7 H D-Dimer ABG pH POC ABG pO2 ABG Oxyhemoglobin ABG Glucose Carbon Dioxide BUN Creatinine Glucose 120 H POC Glucose Magnesium Ferritin AST 73 H Lactate Dehydrogenase C-Reactive Protein Albumin 3.4 L Arterial Blood Glucose Arterial Blood Ionized Calcium Ur Specific [place] Coronavirus (PCR) Positive A 03/29/21 03/29/21 03/29/21 02:30 02:30 02:30 WBC RDW 15.4 H Plt Count 107 L Lymph % (Auto) 5.6 L [place] % (Auto) 10.0 H Lymph # (Auto) 0.4 L [place] # (Auto) Baso # (Auto) Seg Neutrophils % 84.2 H Seg Neutrophils # APTT D-Dimer ABG pH POC ABG pO2 ABG Oxyhemoglobin ABG Glucose Carbon Dioxide BUN Creatinine Glucose 128 H POC Glucose Magnesium 2.60 H Ferritin AST 64 H Lactate Dehydrogenase C-Reactive Protein Albumin 3.1 L Arterial Blood Glucose Arterial Blood Ionized Calcium Ur Specific [place] Coronavirus (PCR) 03/29/21 03/29/21 03/29/21 15:30 19:48 20:03 WBC RDW Plt Count Lymph % (Auto) [place] % (Auto) Lymph # (Auto) [place] # (Auto) Baso # (Auto) Seg Neutrophils % Seg Neutrophils # APTT D-Dimer ABG pH 7.264 L POC ABG pO2 51.4 L ABG Oxyhemoglobin 77.6 L ABG Glucose 275 H Carbon Dioxide 21 L BUN Creatinine Glucose 125 H POC Glucose 189 H Magnesium Ferritin AST 64 H Lactate Dehydrogenase C-Reactive Protein Albumin 2.8 L Arterial Blood Glucose 275 H Arterial Blood Ionized Calcium 4.5 L Ur Specific [place] Coronavirus (PCR) 03/30/21 03/31/21 03/31/21 06:07 07:38 07:38 WBC 11.8 H RDW 15.4 H Plt Count Lymph % (Auto) 2.4 L [place] % (Auto) 8.4 H Lymph # (Auto) 0.3 L [place] # (Auto) 1.0 H Baso # (Auto) Seg Neutrophils % 89.0 H Seg Neutrophils # 10.5 H APTT D-Dimer > 76401 H ABG pH POC ABG pO2 ABG Oxyhemoglobin ABG Glucose Carbon Dioxide BUN Creatinine Glucose 131 H POC Glucose Magnesium Ferritin AST 49 H Lactate Dehydrogenase C-Reactive Protein Albumin 2.7 L Arterial Blood Glucose Arterial Blood Ionized Calcium Ur Specific [place] Coronavirus (PCR) 03/31/21 03/31/21 04/01/21 07:38 07:38 06:37 WBC RDW Plt Count Lymph % (Auto) [place] % (Auto) Lymph # (Auto) [place] # (Auto) Baso # (Auto) Seg Neutrophils % Seg Neutrophils # APTT D-Dimer ABG pH POC ABG pO2 ABG Oxyhemoglobin ABG Glucose Carbon Dioxide BUN Creatinine 0.7 L 0.7 L Glucose 122 H 117 H POC Glucose Magnesium Ferritin 1419.0 H AST 42 H 53 H Lactate Dehydrogenase 752 H C-Reactive Protein 4.40 H Albumin 2.9 L 3.2 L Arterial Blood Glucose Arterial Blood Ionized Calcium Ur Specific [place] Coronavirus (PCR) 04/02/21 04/02/21 04/02/21 05:57 05:57 05:57 WBC 13.6 H RDW 15.7 H Plt Count Lymph % (Auto) 2.3 L [place] % (Auto) 10.5 H Lymph # (Auto) 0.3 L [place] # (Auto) 1.4 H Baso # (Auto) 0.2 H Seg Neutrophils % 86.0 H Seg Neutrophils # 11.7 H APTT D-Dimer > 26876 H ABG pH POC ABG pO2 ABG Oxyhemoglobin ABG Glucose Carbon Dioxide BUN 22 H Creatinine 0.7 L Glucose 149 H POC Glucose Magnesium Ferritin AST 42 H Lactate Dehydrogenase 811 H C-Reactive Protein 2.00 H Albumin 3.0 L Arterial Blood Glucose Arterial Blood Ionized Calcium Ur Specific [place] Coronavirus (PCR) 04/02/21 04/02/21 04/03/21 05:57 21:00 05:56 WBC RDW Plt Count Lymph % (Auto) [place] % (Auto) Lymph # (Auto) [place] # (Auto) Baso # (Auto) Seg Neutrophils % Seg Neutrophils # APTT D-Dimer > 35955 H ABG pH POC ABG pO2 ABG Oxyhemoglobin ABG Glucose Carbon Dioxide BUN Creatinine Glucose POC Glucose 160 H Magnesium Ferritin 1180.0 H AST Lactate Dehydrogenase C-Reactive Protein Albumin Arterial Blood Glucose Arterial Blood Ionized Calcium Ur Specific [place] Coronavirus (PCR) 04/03/21 05:56 WBC RDW Plt Count Lymph % (Auto) [place] % (Auto) Lymph # (Auto) [place] # (Auto) Baso # (Auto) Seg Neutrophils % Seg Neutrophils # APTT D-Dimer ABG pH POC ABG pO2 ABG Oxyhemoglobin ABG Glucose Carbon Dioxide BUN Creatinine Glucose POC Glucose Magnesium Ferritin 1117.0 H AST Lactate Dehydrogenase C-Reactive Protein Albumin Arterial Blood Glucose Arterial Blood Ionized Calcium Ur Specific [place] Coronavirus (PCR)
[2021-04-04] MEDS: PRAVASTATIN 40 MG TAB PO SCH (22:47)
[2021-04-05] MEDS: BENZONATATE 100 MG CAP PO SCH ×3 (05:40→21:57)
[2021-04-05] MEDS: methylPREDNISolone Sod Succinate 125 MG/2 ML INJ IV SCH ×4 (05:42→23:29)
[2021-04-05] MEDS: BUDESONIDE 0.5 MG/2 ML NEBU IH SCH ×3 (08:19→09:03)
[2021-04-05] MEDS: ALBUTEROL 2.5 MG/3 ML NEBU IH SCH ×4 (08:20→21:17)
[2021-04-05] MEDS: ASPIRIN 81 MG TAB CHEW PO SCH (09:23)
[2021-04-05] MEDS: carvediloL 25 MG TAB PO SCH ×2 (09:23→21:57)
[2021-04-05] MEDS: ENOXAPARIN 40 MG/0.4 ML INJ SUB-Q SCH (09:23)
[2021-04-05] MEDS: SACUBITRIL/VALSARTAN 49-51 MG TAB PO SCH ×2 (09:23→21:58)
--- NOTE | 2021-04-05 10:02 | Progress Note ---
Assessment and Plan Assessment and plan: 58-year-old male with past medical history of hypertension, congestive heart failure, NV 18 years ago presenting for complaint of shortness of breath of onset last Friday. Patient states that over the course the last 2 days his symptoms progressively worsened. He had associated symptoms of fever, dry cough, poor p.o. intake, diarrhea and generalized weakness. Ongoing evaluation and treatment for covid pneumonia Hospital Course: 03/29/2021: Cardiology evaluated patient due to 5 beats NSVT. Increased coreg, continue entresto. Patient follows with Dr Martinez. ID evaluated patient, Remdesivir started. Will continue supportive care. 03/30/2021: Respiratory distress overnight. LIkely an allergic reaction to remdesivir. Remdesivir has since been discontinued. Was on BIPAP on encounter and has since been dropped to 15 l/min salter nc. Continue supportive management. Will order inflammatory markers. 03/31/2021: Remains on salter nc 15l /min. sats 88-90% but in no distress. Continue supporitve management. Increased steroids to 60 q6hr. Obtained Pulmonology consult. CXR ordered, will follow. 04/01/2021: Remains on salter nc 12l /min. sats 88-90% but in no distress. Titrate down O2 requirements, ok with sats > 88%. Continue supporitve management. Lasix 20 mg IV x 1 ordered. 04/02/2021: Remains on salter nc 12l /min. Able to ambulate without any distress but does desaturate to 78%. Sats 88-90% when resting. Titrate down O2 requirements, ok with sats > 88%. Lasix 40 mg IV twice daily x 2 doses ordered. Continue supportive management 04/03/2021. Remains on salter nc but decreased from 12l /min to 8 L/min. Titrate down O2 requirements, ok with sats > 88%. Continue Lasix as needed 04/04/2021. Patient's oxygen was decreased to 10 L/min but was noted to have desaturation into the 70s. Therefore, patient was placed on 15 L with nonrebreather. Continue prone positioning as able. Patient has significantly elevated D-dimer. However, Doppler studies and CTA of chest were negative. Continue to trend D-dimer along with other inflammatory markers. Prognosis is guarded 04/05/2021. Patient sitting up in a chair and states that he feels comfortable. Patient previously on nonrebreather plus Salter nasal cannula 15 L FiO2 100% which has now been weaned to 8 L. Continue prone positioning as possible. Repeat D-dimer on 04/03 was still greater than 10,000 but CTA of chest and Doppler studies of lower extremities were negative. Recheck D-dimer in a.m. Assessment and Plan: 1. Acute hypoxic respiratory failure -Symptoms of shortness of breath, dry cough, fever, decreased appetite. High suspicion for Covid PNA. -Febrile 101.4 F, elevated inflammatory markers on admission -CTA chest: Negative for PE, findings consistent with bilateral viral pneumonia. Please refer to official radiology report ED course: Azithromycin IV, Rocephin IV, Decadron IV, albuterol nebulizer -Supplemental oxygen via nasal cannula, de-escalate as patient tolerates Covid therapies as below Albuterol and budesonide inhalers ordered 2. Suspected COVID-19 infection -Patient was vaccinated. Received both doses of Zoona vaccine back in had similar symptoms however she recovered uneventfully Empiric antibiotic coverage with azithromycin IV, Rocephin IV. Procalcitonin ordered, will follow -Decadron 8 mg IV daily x10 days total therapy -DVT prophylaxis dosing Lovenox May be a candidate for Remdesivir however transaminitis noted. Will defer to ID. May be a candidate for Actemra , elevated CRP Infectious disease consulted 3. Sepsis Suspect viral pneumonia as source, temp 101.4F, tachycardic 111 bpm Blood cultures ordered in emergency department 4. Transaminitis -Elevated AST to 73. Likely due to underlying Covid viral illness May be a candidate for remdesivir as it is not greater than 4 times upper limit of normal 5. Chronic congestive heart failure -Resume home coreg, entresto -coreg increased by cardiology 6. Essential hypertension -Resume home coreg, entresto 7. Hyperlipidemia - resume home simvastatin 8. History of Rheumatoid Arthritis - resume home leflunamide 9. Peripheral neuropathy - resume home gabapentin History Interval history: No new issues overnight Hospitalist Physical - Constitutional Vitals: Temp Pulse Resp BP Pulse Ox 97.8 F 87 18 138/83 90 04/05/21 06:50 04/05/21 06:50 04/05/21 03:30 04/05/21 06:50 04/05/21 08:17 General appearance: Present: no acute distress - EENT Eyes: Present: PERRL, EOM intact ENT: hearing intact, clear oral mucosa, dentition normal - Neck Neck: Present: supple, normal ROM - Respiratory Respiratory effort: normal Respiratory: bilateral: CTA - Cardiovascular Rhythm: regular Heart Sounds: Present: S1 & S2. Absent: gallop, rub - Extremities Extremities: no ischemia, No edema, Full ROM - Abdominal General gastrointestinal: soft, non-tender, non-distended, normal bowel sounds - Integumentary Integumentary: Present: clear, warm, dry - Neurologic Neurologic: CNII-XII intact, moves all extremities HEART Score - HEART Score Troponin: Troponin T 0.013 ng/mL (0.00-0.029) 03/28/21 Unknown Results - Labs CBC & Chem 7: 04/02/21 05:57 04/02/21 05:57 Labs: Laboratory Last Values WBC 13.6 K/mm3 (4.5-11.0) H 04/02/21 05:57 RBC 4.31 M/mm3 (3.65-5.03) 04/02/21 05:57 Hgb 12.9 gm/dl (11.8-15.2) 04/02/21 05:57 Hct 38.4 % (35.5-45.6) 04/02/21 05:57 MCV 89 fl (84-94) 04/02/21 05:57 MCH 30 pg (28-32) 04/02/21 05:57 MCHC 34 % (32-34) 04/02/21 05:57 RDW 15.7 % (13.2-15.2) H 04/02/21 05:57 Plt Count 186 K/mm3 (140-440) 04/02/21 05:57 Lymph % (Auto) 2.3 % (13.4-35.0) L 04/02/21 05:57 [place] % (Auto) 10.5 % (0.0-7.3) H 04/02/21 05:57 Eos % (Auto) 0.0 % (0.0-4.3) 04/02/21 05:57 Baso % (Auto) 1.2 % (0.0-1.8) 04/02/21 05:57 Lymph # (Auto) 0.3 K/mm3 (1.2-5.4) L 04/02/21 05:57 [place] # (Auto) 1.4 K/mm3 (0.0-0.8) H 04/02/21 05:57 Eos # (Auto) 0.0 K/mm3 (0.0-0.4) 04/02/21 05:57 Baso # (Auto) 0.2 K/mm3 (0.0-0.1) H 04/02/21 05:57 Seg Neutrophils % 86.0 % (40.0-70.0) H 04/02/21 05:57 Seg Neutrophils # 11.7 K/mm3 (1.8-7.7) H 04/02/21 05:57 PT 13.2 Sec. (12.2-14.9) 03/28/21 Unknown INR 0.95 (0.87-1.13) 03/28/21 Unknown APTT 38.7 Sec. (24.2-36.6) H 03/28/21 Unknown D-Dimer > 17544 ng/mlDDU (0-234) H 04/03/21 05:56 ABG pH 7.264 (7.320-7.450) L 03/29/21 20:03 POC ABG pCO2 42.0 mmHg (32.0-48.0) 03/29/21 20:03 POC ABG pO2 51.4 mmHg (83-108) L 03/29/21 20:03 POC ABG HCO3 18.6 03/29/21 20:03 ABG O2 Saturation 78.9 (0-100) 03/29/21 20:03 POC ABG Base Excess -8.0 03/29/21 20:03 ABG Hemoglobin 15.1 (12.0-17.5) 03/29/21 20:03 ABG Oxyhemoglobin 77.6 (94-98) L 03/29/21 20:03 ABG Methemoglobin 0.2 (0.0-1.5) 03/29/21 20:03 ABG Sodium 136.8 mmol/L (136.0-145.0) 03/29/21 20:03 ABG Potassium 4.0 mmol/L (3.40-4.50) 03/29/21 20:03 ABG Chloride 104.0 mmol/L (98-107) 03/29/21 20:03 ABG Glucose 275 mg/dL (65-95) H 03/29/21 20:03 Carboxyhemoglobin 1.5 (0.5-1.5) 03/29/21 20:03 FiO2 % 100.0 03/29/21 20:03 Sodium 140 mmol/L (137-145) 04/02/21 05:57 Potassium 3.7 mmol/L (3.6-5.0) 04/02/21 05:57 Chloride 106.0 mmol/L (98-107) 04/02/21 05:57 Carbon Dioxide 26 mmol/L (22-30) 04/02/21 05:57 Anion Gap 12 mmol/L 04/02/21 05:57 BUN 22 mg/dL (9-20) H 04/02/21 05:57 Creatinine 0.7 mg/dL (0.8-1.3) L 04/02/21 05:57 Estimated GFR > 60 ml/min 04/02/21 05:57 BUN/Creatinine Ratio 31 % 04/02/21 05:57 Glucose 149 mg/dL (75-100) H 04/02/21 05:57 POC Glucose 160 mg/dL (70-105) H 04/02/21 21:00 Lactic Acid 1.60 mmol/L (0.7-2.0) 03/28/21 Unknown Calcium 8.9 mg/dL (8.4-10.2) 04/02/21 05:57 Magnesium 2.60 mg/dL (1.7-2.3) H 03/29/21 02:30 Ferritin 1117.0 ng/mL (30.0-300.0) H 04/03/21 05:56 Total Bilirubin 0.90 mg/dL (0.1-1.2) 04/02/21 05:57 AST 42 units/L (5-40) H 04/02/21 05:57 ALT 32 units/L (7-56) 04/02/21 05:57 Alkaline Phosphatase 85 units/L (35-129) 04/02/21 05:57 Lactate Dehydrogenase 811 units/L (91-180) H 04/02/21 05:57 Troponin T 0.013 ng/mL (0.00-0.029) 03/28/21 Unknown C-Reactive Protein 1.20 mg/dL (0.00-1.30) 04/03/21 05:56 Total Protein 6.6 g/dL (6.3-8.2) 04/02/21 05:57 Albumin 3.0 g/dL (3.9-5) L 04/02/21 05:57 Albumin/Globulin Ratio 0.8 % 04/02/21 05:57 Procalcitonin 0.37 ng/mL (<0.15) 03/28/21 09:25 Arterial Blood Glucose 275 mg/dL (65-95) H 03/29/21 20:03 Arterial Blood Ionized Calcium 4.5 mg/dL (4.6-5.3) L 03/29/21 20:03 Urine Color [place] (Yellow) 03/28/21 Unknown Urine Turbidity Clear (Clear) 03/28/21 Unknown Urine pH 5.0 (5.0-7.0) 03/28/21 Unknown Ur Specific [place] 1.038 (1.003-1.030) H 03/28/21 Unknown Urine Protein >500 mg/dL (Negative) 03/28/21 Unknown Urine Glucose (UA) 50 mg/dL (Negative) 03/28/21 Unknown Urine Ketones Tr mg/dL (Negative) 03/28/21 Unknown Urine Blood Mod (Negative) 03/28/21 Unknown Urine Nitrite Neg (Negative) 03/28/21 Unknown Urine Bilirubin Neg (Negative) 03/28/21 Unknown Urine Urobilinogen 2.0 mg/dL (<2.0) 03/28/21 Unknown Ur Leukocyte Esterase Neg (Negative) 03/28/21 Unknown Urine WBC (Auto) 6.0 /HPF (0.0-6.0) 03/28/21 Unknown Urine RBC (Auto) 2.0 /HPF (0.0-6.0) 03/28/21 Unknown U Epithel Cells (Auto) < 1.0 /HPF (0-13.0) 03/28/21 Unknown Urine Mucus Few /HPF 03/28/21 Unknown Coronavirus (PCR) Positive (Negative) A 03/28/21 Unknown [place]/IV: Voiding Method Urinal Active Medications - Current Medications Current Medications: Generic Name Dose Route Start Last Admin Trade Name Freq PRN Reason Stop Dose Admin Acetaminophen 650 mg 03/28/21 12:45 Acetaminophen 325 Mg Tab PO Q4H PRN Pain MILD(1-3)/Fever >100.5/MIRANDA Albuterol 2.5 mg 03/29/21 08:00 04/05/21 08:34 Albuterol 2.5 Mg/3 Ml Nebu IH Not Given TIDRT [facility] Aspirin 81 mg 03/29/21 10:00 04/05/21 09:23 Aspirin 81 Mg Tab Chew PO 81 mg QDAY LISSETTE Administration Benzonatate 100 mg 03/29/21 07:00 04/05/21 05:40 Benzonatate 100 Mg Cap PO 100 mg Q8HR LISSETTE Administration Budesonide 0.5 mg 03/28/21 14:00 04/05/21 09:03 Budesonide 0.5 Mg/2 Ml Nebu IH Not Given BID [facility] Carvedilol 25 mg 03/29/21 10:00 04/05/21 09:23 Carvedilol 25 Mg Tab PO 25 mg Q12HR LISSETTE Administration Enoxaparin Sodium 40 mg 03/28/21 14:00 04/05/21 09:23 Enoxaparin 40 Mg/0.4 Ml Inj SUB-Q 40 mg DAILY LISSETTE Administration Protocol Gabapentin 300 mg 03/29/21 18:00 04/04/21 18:41 Gabapentin 300 Mg Cap PO 300 mg QPM LISSETTE Administration Labetalol HCl 10 mg 03/28/21 15:34 Labetalol 20 Mg/4 Ml Inj IV Q6HR PRN sbp > 160, hold for hr < 70 Methylprednisolone Sodium Succinate 60 mg 03/31/21 18:00 04/05/21 05:42 Methylprednisolone Sod Succinate 125 Mg/2 Ml Inj IV 04/08/21 14:00 60 mg Q6HR LISSETTE Administration Miscellaneous Medication 20 mg 03/29/21 10:00 Leflunomide PO DAILY [facility] Ondansetron HCl 4 mg 03/28/21 12:45 Ondansetron 4 Mg/2 Ml Inj IV Q8H PRN Nausea And Vomiting Oxycodone/Acetaminophen 1 tab 03/28/21 12:45 04/01/21 10:36 Oxycodone /Acetaminophen 5-325mg Tab PO 1 tab Q6H PRN Administration Pain, Moderate (4-6) Pravastatin Sodium 40 mg 03/29/21 22:00 04/04/21 22:47 Pravastatin 40 Mg Tab PO 40 mg QHS LISSETTE Administration Sodium Chloride 10 ml 03/28/21 22:00 04/05/21 09:24 Sodium Chloride 0.9% 10 Ml Flush Syringe IV 10 ml BID LISSETTE Administration Sodium Chloride 10 ml 03/28/21 12:45 Sodium Chloride 0.9% 10 Ml Flush Syringe IV PRN PRN LINE FLUSH Nutrition/Malnutrition Assess - Dietary Evaluation Nutrition/Malnutrition Findings: Nutrition Notes Start: 03/29/21 14:40 Freq: Status: Active Protocol: Document 04/03/21 14:34 GB (Rec: 04/03/21 14:41 GB [id number]) Nutrition Notes Initial or Follow up Reassessment Current Diagnosis Hypertension,Heart Failure Other Pertinent Diagnosis SOB Current Diet cardiac Labs/Tests 04/02: BUN 22, creatinine 0.7, glucose 149, AST 42 Pertinent Medications reviewed Height 5 ft 5 in Weight 86.6 kg [place] Body Weight (kg) 61.81 BMI 31.7 Weight change and time frame +7 kg from admit. +8% gain. Weight Status Obese Subjective/Other Information PO intake of meals recorded at 75% or greater and independent with meals. Percent of energy/protein needs met: PO intake of 75% or greater of meals TID daily will meet 90% or greater of estimated energy needs. Burn Absent Trauma Absent GI Symptoms None Food Allergy No Skin Integrity/Comment no reported skin complications Current % PO Good (75-100%) Minimum of two criteria No #1 Nutrition Diagnosis Predicted suboptimal energy intake Comments: depending on duration and complications of possible covid and treatments 04/03: PO intake of meals recorded at 75% or greater Etiology SOB As Evidenced by Signs and Symptoms reported decreased PO r/t decreased appetite Diagnosis Progress(for reassessment Improved documentation) Is patient on ventilator? No Is Patient Ambulatory and/or Out of Bed Yes REE-([place] or-ambulatory/OOB) [ [id number]] Kcal/Kg value to use for calculation 22 Approximate Energy Requirements Using 1905 kcal/Kg Calculation Used for Recommendations Kcal/kg Additional Notes Protein: 0.8-1 g/kg @83k- 83g Fluids: 1 ml/kcal or per Nutrition Intervention Change Diet Order: continue Nutrition Support: n/a Add Supplement/Snack (indicate name/kcal n/a /protein ) Goal #1 PO intake of meals to be 50% or greater TID daily for LOS 04/03: met - 75% or greater, continues Goal #2 Weight to maintain within +/-3 % current weight for LOS 04/03: +8% gain, not met, continues: weight change could be resulted from medication regime Follow-Up By: 04/10/21 Additional Comments nursing staff to monitor and record PO intake of meals daily - continues
--- NOTE | 2021-04-05 14:23 | Progress Note ---
Assessment and Plan Cultures: SARS CoV2 PCR: Positive 03/28/2021 blood culture: No growth A/P: 58-year-old male with hypertension, CHF, CAD admitted with cough, fever, shortness of breath, generalized weakness along with some loose stools: #Bilateral pneumonia: Secondary to COVID-19. Breakthrough infection. Vacci nated against COVID-19 with Pfizer back in Jul/Aug 2020. CTA negative for pulmonary thromboembolism, showed bilateral extensive pneumonitis. Elevated markers. Allergic reaction to remdesivir, hence stopped after 1st dose. #Acute hypoxic respiratory failure: Requiring salter nasal cannula. #Transaminitis: Likely secondary to COVID-19. #Thrombocytopenia #Rheumatoid arthritis, immunocompromised host: On leflunomide. #CHF Recs: continue steroids x 10 days not a candidate for Actemra D-dimer remains significantly elevated, bilateral venous duplexes negative for DVT, initial CTA on admission was negative for PE. prophylactic anticoagulation based on d-dimer per hospital protocol completed empiric abx due to mildly elevated procalcitonin, immunocompromised status trend d-dimer every 2-3 days. CRP has normalized guarded prognosis Tanya Hazel MD, FACP [facility] ([facility] O: [phone] F: [phone] Subjective Date of service: 04/05/21 Principal diagnosis: COVID-19 PNA Interval history: No fever. Remains on Salter nasal cannula at 15 L/min. Objective - Exam Narrative Exam: Physical Exam (reviewed in chart to minimize risk of transmission) Constitutional: deferred Head, Ears, Nose: deferred Eyes: deferred Neck: deferred Oral: deferred Cardiovascular: deferred Respiratory: deferred GI: deferred Musculoskeletal: deferred Skin: deferred Hem/Lymphatic: deferred Psych: deferred Neurological: deferred - Constitutional Vitals: Vital Signs Temp Pulse Resp BP Pulse Ox 97.8 F 87 18 138/83 91 04/05/21 06:50 04/05/21 06:50 04/05/21 03:30 04/05/21 06:50 04/05/21 14:09 Temperature -Last 24 Hours Temperature 97.8 F Temperature 97.9 F Temperature 98.4 F - Labs CBC & Chem 7: 04/02/21 05:57 04/02/21 05:57
--- NOTE | 2021-04-05 15:12 | Progress Note ---
Assessment and Plan Acute hypoxemic respiratory failure COVID-19 virus infection Pneumonia due to COVID-19 virus CAD (coronary artery disease) HFrEF (heart failure with reduced ejection fraction) HTN - repeat ABG in am - continue to wean supplemental oxygen for target O2 sat's > 90% acutely - aspiration precautions - bronchodilators with pulmonary hygiene per RT - prn diuresis - avoid nephrotoxins, renally dose all medications - continue to avoid benzodiazepine's, reduce the possibility of delirium - s/p AB's per ID rec's (rocephin & Zithromax) - prn analgesia per pain score - Maintenance of sleep-wake cycle, avoid delirium - G.I. & VTE prophylaxis - PT/OT/ROM exercises - continue mobility protocols for pressure ulcer prophylaxis - Monitor hemodynamics closely - continue other care per attending / other consultants - discharge planning ongoing concurrently COVID SPECIFIC INTERVENTIONS - Remdesivir as per ID/Pulmonary developed protocols (Received) - continue systemic steroids for severe COVID-19 infection empirically (Solumedrol) - follow repeat COVID tests results - zinc and vitamin C supplementation - Monitor inflammatory markers per facility protocol - ferritin, Ddimer, CRP - therapeutic anticoagulation per system Protocol based on d-dimer and clinical considerations (VTE prophylaxis) - Continue contact and airborne isolation .... Re-evaluate in am & prn CONDITION: CRITICAL PROGNOSIS: GUARDED CODE STATUS: FULL CODE The high probability of a clinically significant, sudden or life-threatening deterioration of the [respiratory & cardiovascular] system(s) required my full and direct attention, intervention and personal management. The aggregate critical care time was [33] minutes without overlap. Time includes spent on; [x] Data Review and interpretation [x] Patient assessment and monitoring of vital signs [x] Documentation [x] Medication orders and management Subjective Date of service: 04/05/21 Principal diagnosis: Acute hypoxemic resp failure; COVID-19 infxn; Pneumonia; CAD; HFrEF; HTN Interval history: Patient is seen today for: Acute hypoxemic respiratory failure; COVID-19 virus infection; Pneumonia due to COVID-19 virus; CAD; HFrEF; HTN Seen and examined at bedside; 24hour events reviewed; nursing and respiratory care staff consulted; no adverse overnight events reported to me; resting in bed; feels better overall; remains on supplemental oxygen but FiO2 is improved; no hemoptysis; denies chest pain Objective Vital Signs - 12hr 04/05/21 04/05/21 04/05/21 03:30 06:50 08:17 Temperature 97.8 F Pulse Rate 87 Respiratory 18 Rate Blood Pressure 138/83 O2 Sat by Pulse 90 82 L 90 Oximetry 04/05/21 04/05/21 10:00 14:09 Temperature Pulse Rate Respiratory Rate Blood Pressure O2 Sat by Pulse 90 91 Oximetry Constitutional: no acute distress, alert Eyes: non-icteric ENT: oropharynx moist Neck: supple, no lymphadenopathy, no JVD Effort: mildly labored Ascultation: Bilateral: rhonchi Percussion: Bilateral: not dull Cardiovascular: regular rate and rhythm Gastrointestinal: normoactive bowel sounds, soft, non-tender, non-distended (protuberant) Integumentary: normal Extremities: no cyanosis, no edema Neurologic: normal mental status, non-focal exam, pupils equal and round, CN II- XII normal Psychiatric: mood appropriate, affect normal CBC and BMP: 04/02/21 05:57 04/02/21 05:57 ABG, PT/INR, D-dimer: ABG ABG pH 7.264 (7.320-7.450) L 03/29/21 20:03 POC ABG pCO2 42.0 mmHg (32.0-48.0) 03/29/21 20:03 POC ABG pO2 51.4 mmHg (83-108) L 03/29/21 20:03 POC ABG HCO3 18.6 03/29/21 20:03 ABG O2 Saturation 78.9 (0-100) 03/29/21 20:03 PT/INR, D-dimer PT 13.2 Sec. (12.2-14.9) 03/28/21 Unknown INR 0.95 (0.87-1.13) 03/28/21 Unknown D-Dimer > 00022 ng/mlDDU (0-234) H 04/03/21 05:56 Abnormal lab findings: Abnormal Labs 03/28/21 03/28/21 03/28/21 08:26 09:25 09:25 WBC RDW Plt Count Lymph % (Auto) [place] % (Auto) Lymph # (Auto) [place] # (Auto) Baso # (Auto) Seg Neutrophils % Seg Neutrophils # APTT D-Dimer 1100.30 H ABG pH POC ABG pO2 ABG Oxyhemoglobin ABG Glucose Carbon Dioxide BUN Creatinine Glucose 109 H POC Glucose Magnesium 2.40 H Ferritin AST Lactate Dehydrogenase 677 H C-Reactive Protein 13.70 H Albumin Arterial Blood Glucose Arterial Blood Ionized Calcium Ur Specific [place] Coronavirus (PCR) 03/28/21 03/28/21 03/28/21 09:25 Unknown Unknown WBC RDW Plt Count 96 L Lymph % (Auto) 7.2 L [place] % (Auto) 10.8 H Lymph # (Auto) 0.5 L [place] # (Auto) Baso # (Auto) Seg Neutrophils % 81.8 H Seg Neutrophils # APTT D-Dimer ABG pH POC ABG pO2 ABG Oxyhemoglobin ABG Glucose Carbon Dioxide BUN Creatinine Glucose POC Glucose Magnesium Ferritin 1340.0 H AST Lactate Dehydrogenase C-Reactive Protein Albumin Arterial Blood Glucose Arterial Blood Ionized Calcium Ur Specific [place] 1.038 H Coronavirus (PCR) 03/28/21 03/28/21 03/28/21 Unknown Unknown Unknown WBC RDW Plt Count Lymph % (Auto) [place] % (Auto) Lymph # (Auto) [place] # (Auto) Baso # (Auto) Seg Neutrophils % Seg Neutrophils # APTT 38.7 H D-Dimer ABG pH POC ABG pO2 ABG Oxyhemoglobin ABG Glucose Carbon Dioxide BUN Creatinine Glucose 120 H POC Glucose Magnesium Ferritin AST 73 H Lactate Dehydrogenase C-Reactive Protein Albumin 3.4 L Arterial Blood Glucose Arterial Blood Ionized Calcium Ur Specific [place] Coronavirus (PCR) Positive A 03/29/21 03/29/21 03/29/21 02:30 02:30 02:30 WBC RDW 15.4 H Plt Count 107 L Lymph % (Auto) 5.6 L [place] % (Auto) 10.0 H Lymph # (Auto) 0.4 L [place] # (Auto) Baso # (Auto) Seg Neutrophils % 84.2 H Seg Neutrophils # APTT D-Dimer ABG pH POC ABG pO2 ABG Oxyhemoglobin ABG Glucose Carbon Dioxide BUN Creatinine Glucose 128 H POC Glucose Magnesium 2.60 H Ferritin AST 64 H Lactate Dehydrogenase C-Reactive Protein Albumin 3.1 L Arterial Blood Glucose Arterial Blood Ionized Calcium Ur Specific [place] Coronavirus (PCR) 03/29/21 03/29/21 03/29/21 15:30 19:48 20:03 WBC RDW Plt Count Lymph % (Auto) [place] % (Auto) Lymph # (Auto) [place] # (Auto) Baso # (Auto) Seg Neutrophils % Seg Neutrophils # APTT D-Dimer ABG pH 7.264 L POC ABG pO2 51.4 L ABG Oxyhemoglobin 77.6 L ABG Glucose 275 H Carbon Dioxide 21 L BUN Creatinine Glucose 125 H POC Glucose 189 H Magnesium Ferritin AST 64 H Lactate Dehydrogenase C-Reactive Protein Albumin 2.8 L Arterial Blood Glucose 275 H Arterial Blood Ionized Calcium 4.5 L Ur Specific [place] Coronavirus (PCR) 03/30/21 03/31/21 03/31/21 06:07 07:38 07:38 WBC 11.8 H RDW 15.4 H Plt Count Lymph % (Auto) 2.4 L [place] % (Auto) 8.4 H Lymph # (Auto) 0.3 L [place] # (Auto) 1.0 H Baso # (Auto) Seg Neutrophils % 89.0 H Seg Neutrophils # 10.5 H APTT D-Dimer > 67035 H ABG pH POC ABG pO2 ABG Oxyhemoglobin ABG Glucose Carbon Dioxide BUN Creatinine Glucose 131 H POC Glucose Magnesium Ferritin AST 49 H Lactate Dehydrogenase C-Reactive Protein Albumin 2.7 L Arterial Blood Glucose Arterial Blood Ionized Calcium Ur Specific [place] Coronavirus (PCR) 03/31/21 03/31/21 04/01/21 07:38 07:38 06:37 WBC RDW Plt Count Lymph % (Auto) [place] % (Auto) Lymph # (Auto) [place] # (Auto) Baso # (Auto) Seg Neutrophils % Seg Neutrophils # APTT D-Dimer ABG pH POC ABG pO2 ABG Oxyhemoglobin ABG Glucose Carbon Dioxide BUN Creatinine 0.7 L 0.7 L Glucose 122 H 117 H POC Glucose Magnesium Ferritin 1419.0 H AST 42 H 53 H Lactate Dehydrogenase 752 H C-Reactive Protein 4.40 H Albumin 2.9 L 3.2 L Arterial Blood Glucose Arterial Blood Ionized Calcium Ur Specific [place] Coronavirus (PCR) 04/02/21 04/02/21 04/02/21 05:57 05:57 05:57 WBC 13.6 H RDW 15.7 H Plt Count Lymph % (Auto) 2.3 L [place] % (Auto) 10.5 H Lymph # (Auto) 0.3 L [place] # (Auto) 1.4 H Baso # (Auto) 0.2 H Seg Neutrophils % 86.0 H Seg Neutrophils # 11.7 H APTT D-Dimer > 82971 H ABG pH POC ABG pO2 ABG Oxyhemoglobin ABG Glucose Carbon Dioxide BUN 22 H Creatinine 0.7 L Glucose 149 H POC Glucose Magnesium Ferritin AST 42 H Lactate Dehydrogenase 811 H C-Reactive Protein 2.00 H Albumin 3.0 L Arterial Blood Glucose Arterial Blood Ionized Calcium Ur Specific [place] Coronavirus (PCR) 04/02/21 04/02/21 04/03/21 05:57 21:00 05:56 WBC RDW Plt Count Lymph % (Auto) [place] % (Auto) Lymph # (Auto) [place] # (Auto) Baso # (Auto) Seg Neutrophils % Seg Neutrophils # APTT D-Dimer > 43479 H ABG pH POC ABG pO2 ABG Oxyhemoglobin ABG Glucose Carbon Dioxide BUN Creatinine Glucose POC Glucose 160 H Magnesium Ferritin 1180.0 H AST Lactate Dehydrogenase C-Reactive Protein Albumin Arterial Blood Glucose Arterial Blood Ionized Calcium Ur Specific [place] Coronavirus (PCR) 04/03/21 05:56 WBC RDW Plt Count Lymph % (Auto) [place] % (Auto) Lymph # (Auto) [place] # (Auto) Baso # (Auto) Seg Neutrophils % Seg Neutrophils # APTT D-Dimer ABG pH POC ABG pO2 ABG Oxyhemoglobin ABG Glucose Carbon Dioxide BUN Creatinine Glucose POC Glucose Magnesium Ferritin 1117.0 H AST Lactate Dehydrogenase C-Reactive Protein Albumin Arterial Blood Glucose Arterial Blood Ionized Calcium Ur Specific [place] Coronavirus (PCR) Chest x-ray: pending Allied health notes reviewed: nursing
[2021-04-05] MEDS: GABAPENTIN 300 MG CAP PO SCH (17:10)
[2021-04-05] MEDS: PRAVASTATIN 40 MG TAB PO SCH (21:57)
[2021-04-06] MEDS: methylPREDNISolone Sod Succinate 125 MG/2 ML INJ IV SCH ×3 (05:10→17:12)
[2021-04-06] MEDS: BENZONATATE 100 MG CAP PO SCH ×3 (05:10→22:12)
[2021-04-06 06:16] LABS: Hematocrit 36.4 % (35.5-45.6); Hemoglobin 12.3 gm/dl (11.8-15.2); Mean Corpuscular HGB Conc 34 % (32-34); Mean Corpuscular Volume 90 fl (84-94); Platelet Count 184 K/mm3 (140-440); Red Blood Count 4.04 M/mm3 (3.65-5.03); Red Cell Distribution Width 15.6 % (13.2-15.2)
[2021-04-06 06:27] LABS: Blood Urea Nitrogen 22 mg/dL (9-20); Calcium 8.6 mg/dL (8.4-10.2); Hemolysis Index 4
[2021-04-06 06:30] LABS: BUN/Creatinine Ratio 31
[2021-04-06 07:22] LABS: Band Neutrophils # (Manual) 0.1 K/mm3; Total Cells Counted 100
[2021-04-06 07:23] LABS: Platelet Estimate Consistent w Auto; Poikilocytosis 1+
--- NOTE | 2021-04-06 09:13 | Progress Note ---
Assessment and Plan Assessment and plan: 58-year-old male with past medical history of hypertension, congestive heart failure, [place] 18 years ago presenting for complaint of shortness of breath of onset last Friday. Patient states that over the course the last 2 days his symptoms progressively worsened. He had associated symptoms of fever, dry cough, poor p.o. intake, diarrhea and generalized weakness. Ongoing evaluation and treatment for covid pneumonia Acute hypoxic respiratory failure COVID-19 pneumonia Sepsis. Present on admission. Patient met criteria given the fever, tachycardia and diagnosis of pneumonia. Transaminitis. Etiology secondary to sepsis. Chronic CHF. Hypertension. Hyperlipidemia. History of rheumatoid arthritis. Peripheral neuropathy. Hospital Course: 03/29/2021: Cardiology evaluated patient due to 5 beats NSVT. Increased coreg, continue entresto. Patient follows with Dr Martinez. ID evaluated patient, Remdesivir started. Will continue supportive care. 03/30/2021: Respiratory distress overnight. LIkely an allergic reaction to remdesivir. Remdesivir has since been discontinued. Was on BIPAP on encounter and has since been dropped to 15 l/min salter nc. Continue supportive management. Will order inflammatory markers. 03/31/2021: Remains on salter nc 15l /min. sats 88-90% but in no distress. Continue supporitve management. Increased steroids to 60 q6hr. Obtained Pu lmonology consult. CXR ordered, will follow. 04/01/2021: Remains on salter nc 12l /min. sats 88-90% but in no distress. Titrate down O2 requirements, ok with sats > 88%. Continue supporitve management . Lasix 20 mg IV x 1 ordered. 04/02/2021: Remains on salter nc 12l /min. Able to ambulate without any distress but does desaturate to 78%. Sats 88-90% when resting. Titrate down O2 requirements, ok with sats > 88%. Lasix 40 mg IV twice daily x 2 doses ordered. Continue supportive management 04/03/2021. Remains on salter nc but decreased from 12l /min to 8 L/min. Titrate down O2 requirements, ok with sats > 88%. Continue Lasix as needed 04/04/2021. Patient's oxygen was decreased to 10 L/min but was noted to have desaturation into the 70s. Therefore, patient was placed on 15 L with nonrebre ather. Continue prone positioning as able. Patient has significantly elevated D- dimer. However, Doppler studies and CTA of chest were negative. Continue to trend D-dimer along with other inflammatory markers. Prognosis is guarded 04/05/2021. Patient sitting up in a chair and states that he feels comfortable. Patient previously on nonrebreather plus Salter nasal cannula 15 L FiO2 100% which has now been weaned to 8 L. Continue prone positioning as possible. Repeat D-dimer on 04/03 was still greater than 10,000 but CTA of chest and Doppler studies of lower extremities were negative. Recheck D-dimer in a.m. 04/06/2021. D-dimer is slightly decreased to ~8700. Patient remains on salter nasal cannula 8 L/min. Continue prone positioning as possible. Continue to trend inflammatory markers. History Interval history: No new issues overnight Hospitalist Physical - Constitutional Vitals: Temp Pulse Resp BP Pulse Ox 97.9 F 88 18 140/86 82 L 04/06/21 05:31 04/06/21 05:31 04/06/21 05:31 04/06/21 05:31 04/06/21 05:31 General appearance: Present: no acute distress - EENT Eyes: Present: PERRL, EOM intact ENT: hearing intact, clear oral mucosa, dentition normal - Neck Neck: Present: supple, normal ROM - Respiratory Respiratory effort: normal Respiratory: bilateral: CTA - Cardiovascular Rhythm: regular Heart Sounds: Present: S1 & S2. Absent: gallop, rub - Extremities Extremities: no ischemia, No edema, Full ROM - Abdominal General gastrointestinal: soft, non-tender, non-distended, normal bowel sounds - Integumentary Integumentary: Present: clear, warm, dry - Neurologic Neurologic: CNII-XII intact, moves all extremities HEART Score - HEART Score Troponin: Troponin T 0.013 ng/mL (0.00-0.029) 03/28/21 Unknown Results - Labs CBC & Chem 7: 04/06/21 05:03 04/06/21 05:03 Labs: Laboratory Last Values WBC 11.7 K/mm3 (4.5-11.0) H 04/06/21 05:03 RBC 4.04 M/mm3 (3.65-5.03) 04/06/21 05:03 Hgb 12.3 gm/dl (11.8-15.2) 04/06/21 05:03 Hct 36.4 % (35.5-45.6) 04/06/21 05:03 MCV 90 fl (84-94) 04/06/21 05:03 MCH 31 pg (28-32) 04/06/21 05:03 MCHC 34 % (32-34) 04/06/21 05:03 RDW 15.6 % (13.2-15.2) H 04/06/21 05:03 Plt Count 184 K/mm3 (140-440) 04/06/21 05:03 Lymph % (Auto) 2.3 % (13.4-35.0) L 04/02/21 05:57 Graves % (Auto) 10.5 % (0.0-7.3) H 04/02/21 05:57 Eos % (Auto) 0.0 % (0.0-4.3) 04/02/21 05:57 Baso % (Auto) 1.2 % (0.0-1.8) 04/02/21 05:57 Lymph # (Auto) 0.3 K/mm3 (1.2-5.4) L 04/02/21 05:57 Graves # (Auto) 1.4 K/mm3 (0.0-0.8) H 04/02/21 05:57 Eos # (Auto) 0.0 K/mm3 (0.0-0.4) 04/02/21 05:57 Baso # (Auto) 0.2 K/mm3 (0.0-0.1) H 04/02/21 05:57 Add Manual Diff Complete 04/06/21 05:03 Total Counted 100 04/06/21 05:03 Seg Neutrophils % Rotary Shear Operator 04/06/21 05:03 Band Neutrophils % 1.0 % 04/06/21 05:03 Lymphocytes % (Manual) 1.0 % (13.4-35.0) L 04/06/21 05:03 Monocytes % (Manual) 2.0 % (0.0-7.3) 04/06/21 05:03 Nucleated RBC % Not Reportable 04/06/21 05:03 Seg Neutrophils # 11.7 K/mm3 (1.8-7.7) H 04/02/21 05:57 Seg Neutrophils # Man 11.2 K/mm3 (1.8-7.7) H 04/06/21 05:03 Band Neutrophils # 0.1 K/mm3 04/06/21 05:03 Lymphocytes # (Manual) 0.1 K/mm3 (1.2-5.4) L 04/06/21 05:03 Abs React Lymphs (Man) 0.0 K/mm3 04/06/21 05:03 Monocytes # (Manual) 0.2 K/mm3 (0.0-0.8) 04/06/21 05:03 Eosinophils # (Manual) 0.0 K/mm3 (0.0-0.4) 04/06/21 05:03 Basophils # (Manual) 0.0 K/mm3 (0.0-0.1) 04/06/21 05:03 Metamyelocytes # 0.0 K/mm3 04/06/21 05:03 Myelocytes # 0.0 K/mm3 04/06/21 05:03 Promyelocytes # 0.0 K/mm3 04/06/21 05:03 Blast Cells # 0.0 K/mm3 04/06/21 05:03 WBC Morphology Not Reportable 04/06/21 05:03 Hypersegmented Neuts Not Reportable 04/06/21 05:03 Hyposegmented Neuts Not Reportable 04/06/21 05:03 Hypogranular Neuts Not Reportable 04/06/21 05:03 Smudge Cells Not Reportable 04/06/21 05:03 Toxic Granulation Not Reportable 04/06/21 05:03 Toxic Vacuolation Not Reportable 04/06/21 05:03 Dohle Bodies Not Reportable 04/06/21 05:03 Pelger-Huet Anomaly Not Reportable 04/06/21 05:03 Adan Rods Not Reportable 04/06/21 05:03 Platelet Estimate Consistent w auto 04/06/21 05:03 Clumped Platelets Not Reportable 04/06/21 05:03 Plt Clumps, EDTA Not Reportable 04/06/21 05:03 Large Platelets Not Reportable 04/06/21 05:03 Giant Platelets Not Reportable 04/06/21 05:03 Platelet Satelliting Not Reportable 04/06/21 05:03 Plt Morphology Comment Not Reportable 04/06/21 05:03 RBC Morphology Not Reportable 04/06/21 05:03 Dimorphic RBCs Not Reportable 04/06/21 05:03 Polychromasia Not Reportable 04/06/21 05:03 Hypochromasia Not Reportable 04/06/21 05:03 Poikilocytosis 1+ 04/06/21 05:03 Anisocytosis Not Reportable 04/06/21 05:03 Microcytosis Not Reportable 04/06/21 05:03 Macrocytosis Not Reportable 04/06/21 05:03 Spherocytes Not Reportable 04/06/21 05:03 Pappenheimer Bodies Not Reportable 04/06/21 05:03 Sickle Cells Not Reportable 04/06/21 05:03 Target Cells Not Reportable 04/06/21 05:03 Tear Drop Cells Not Reportable 04/06/21 05:03 Ovalocytes Not Reportable 04/06/21 05:03 Helmet Cells Not Reportable 04/06/21 05:03 Madrigal-[place] Bodies Not Reportable 04/06/21 05:03 [place] Rings Not Reportable 04/06/21 05:03 Tushar Cells Not Reportable 04/06/21 05:03 Bite Cells Not Reportable 04/06/21 05:03 Crenated Cell Not Reportable 04/06/21 05:03 Elliptocytes Not Reportable 04/06/21 05:03 Acanthocytes (Spur) Not Reportable 04/06/21 05:03 Rouleaux Not Reportable 04/06/21 05:03 Hemoglobin C Crystals Not Reportable 04/06/21 05:03 Schistocytes Not Reportable 04/06/21 05:03 Malaria parasites Not Reportable 04/06/21 05:03 Luke Bodies Not Reportable 04/06/21 05:03 Hem Pathologist Commnt No 04/06/21 05:03 PT 13.2 Sec. (12.2-14.9) 03/28/21 Unknown INR 0.95 (0.87-1.13) 03/28/21 Unknown APTT 38.7 Sec. (24.2-36.6) H 03/28/21 Unknown D-Dimer 8753.33 ng/mlDDU (0-234) H 04/06/21 05:03 ABG pH 7.264 (7.320-7.450) L 03/29/21 20:03 POC ABG pCO2 42.0 mmHg (32.0-48.0) 03/29/21 20:03 POC ABG pO2 51.4 mmHg (83-108) L 03/29/21 20:03 POC ABG HCO3 18.6 03/29/21 20:03 ABG O2 Saturation 78.9 (0-100) 03/29/21 20:03 POC ABG Base Excess -8.0 03/29/21 20:03 ABG Hemoglobin 15.1 (12.0-17.5) 03/29/21 20:03 ABG Oxyhemoglobin 77.6 (94-98) L 03/29/21 20:03 ABG Methemoglobin 0.2 (0.0-1.5) 03/29/21 20:03 ABG Sodium 136.8 mmol/L (136.0-145.0) 03/29/21 20:03 ABG Potassium 4.0 mmol/L (3.40-4.50) 03/29/21 20:03 ABG Chloride 104.0 mmol/L (98-107) 03/29/21 20:03 ABG Glucose 275 mg/dL (65-95) H 03/29/21 20:03 Carboxyhemoglobin 1.5 (0.5-1.5) 03/29/21 20:03 FiO2 % 100.0 03/29/21 20:03 Sodium 138 mmol/L (137-145) 04/06/21 05:03 Potassium 4.1 mmol/L (3.6-5.0) 04/06/21 05:03 Chloride 103.1 mmol/L (98-107) 04/06/21 05:03 Carbon Dioxide 31 mmol/L (22-30) H 04/06/21 05:03 Anion Gap 8 mmol/L 04/06/21 05:03 BUN 22 mg/dL (9-20) H 04/06/21 05:03 Creatinine 0.7 mg/dL (0.8-1.3) L 04/06/21 05:03 Estimated GFR > 60 ml/min 04/06/21 05:03 BUN/Creatinine Ratio 31 % 04/06/21 05:03 Glucose 145 mg/dL (75-100) H 04/06/21 05:03 POC Glucose 160 mg/dL (70-105) H 04/02/21 21:00 Lactic Acid 1.60 mmol/L (0.7-2.0) 03/28/21 Unknown Calcium 8.6 mg/dL (8.4-10.2) 04/06/21 05:03 Magnesium 2.60 mg/dL (1.7-2.3) H 03/29/21 02:30 Ferritin 1117.0 ng/mL (30.0-300.0) H 04/03/21 05:56 Total Bilirubin 0.90 mg/dL (0.1-1.2) 04/02/21 05:57 AST 42 units/L (5-40) H 04/02/21 05:57 ALT 32 units/L (7-56) 04/02/21 05:57 Alkaline Phosphatase 85 units/L (35-129) 04/02/21 05:57 Lactate Dehydrogenase 811 units/L (91-180) H 04/02/21 05:57 Troponin T 0.013 ng/mL (0.00-0.029) 03/28/21 Unknown C-Reactive Protein 1.20 mg/dL (0.00-1.30) 04/03/21 05:56 Total Protein 6.6 g/dL (6.3-8.2) 04/02/21 05:57 Albumin 3.0 g/dL (3.9-5) L 04/02/21 05:57 Albumin/Globulin Ratio 0.8 % 04/02/21 05:57 Procalcitonin 0.37 ng/mL (<0.15) 03/28/21 09:25 Arterial Blood Glucose 275 mg/dL (65-95) H 03/29/21 20:03 Arterial Blood Ionized Calcium 4.5 mg/dL (4.6-5.3) L 03/29/21 20:03 Urine Color [place] (Yellow) 03/28/21 Unknown Urine Turbidity Clear (Clear) 03/28/21 Unknown Urine pH 5.0 (5.0-7.0) 03/28/21 Unknown Ur Specific [place] 1.038 (1.003-1.030) H 03/28/21 Unknown Urine Protein >500 mg/dL (Negative) 03/28/21 Unknown Urine Glucose (UA) 50 mg/dL (Negative) 03/28/21 Unknown Urine Ketones Tr mg/dL (Negative) 03/28/21 Unknown Urine Blood Mod (Negative) 03/28/21 Unknown Urine Nitrite Neg (Negative) 03/28/21 Unknown Urine Bilirubin Neg (Negative) 03/28/21 Unknown Urine Urobilinogen 2.0 mg/dL (<2.0) 03/28/21 Unknown Ur Leukocyte Esterase Neg (Negative) 03/28/21 Unknown Urine WBC (Auto) 6.0 /HPF (0.0-6.0) 03/28/21 Unknown Urine RBC (Auto) 2.0 /HPF (0.0-6.0) 03/28/21 Unknown U Epithel Cells (Auto) < 1.0 /HPF (0-13.0) 03/28/21 Unknown Urine Mucus Few /HPF 03/28/21 Unknown Coronavirus (PCR) Positive (Negative) A 03/28/21 Unknown [place]/IV: Voiding Method Toilet Active Medications - Current Medications Current Medications: Generic Name Dose Route Start Last Admin Trade Name Freq PRN Reason Stop Dose Admin Acetaminophen 650 mg 03/28/21 12:45 Acetaminophen 325 Mg Tab PO Q4H PRN Pain MILD(1-3)/Fever >100.5/MIRANDA Albuterol 2.5 mg 03/29/21 08:00 04/05/21 21:17 Albuterol 2.5 Mg/3 Ml Nebu IH Not Given TIDRT LISSETTE Aspirin 81 mg 03/29/21 10:00 04/05/21 09:23 Aspirin 81 Mg Tab Chew PO 81 mg QDAY LISSETTE Administration Benzonatate 100 mg 03/29/21 07:00 04/06/21 05:10 Benzonatate 100 Mg Cap PO 100 mg Q8HR LISSETTE Administration Budesonide 0.5 mg 03/28/21 14:00 04/05/21 09:03 Budesonide 0.5 Mg/2 Ml Nebu IH Not Given BID LISSETTE Carvedilol 25 mg 03/29/21 10:00 04/05/21 21:57 Carvedilol 25 Mg Tab PO 25 mg Q12HR LISSETTE Administration Enoxaparin Sodium 40 mg 03/28/21 14:00 04/05/21 09:23 Enoxaparin 40 Mg/0.4 Ml Inj SUB-Q 40 mg DAILY LISSETTE Administration Protocol Gabapentin 300 mg 03/29/21 18:00 04/05/21 17:10 Gabapentin 300 Mg Cap PO 300 mg QPM LISSETTE Administration Labetalol HCl 10 mg 03/28/21 15:34 Labetalol 20 Mg/4 Ml Inj IV Q6HR PRN sbp > 160, hold for hr < 70 Methylprednisolone Sodium Succinate 60 mg 03/31/21 18:00 04/06/21 05:10 Methylprednisolone Sod Succinate 125 Mg/2 Ml Inj IV 04/08/21 14:00 60 mg Q6HR LISSETTE Administration Miscellaneous Medication 20 mg 03/29/21 10:00 Leflunomide PO DAILY LISSETTE Ondansetron HCl 4 mg 03/28/21 12:45 Ondansetron 4 Mg/2 Ml Inj IV Q8H PRN Nausea And Vomiting Oxycodone/Acetaminophen 1 tab 03/28/21 12:45 04/01/21 10:36 Oxycodone /Acetaminophen 5-325mg Tab PO 1 tab Q6H PRN Administration Pain, Moderate (4-6) Pravastatin Sodium 40 mg 03/29/21 22:00 04/05/21 21:57 Pravastatin 40 Mg Tab PO 40 mg QHS LISSETTE Administration Sodium Chloride 10 ml 03/28/21 22:00 04/05/21 21:58 Sodium Chloride 0.9% 10 Ml Flush Syringe IV 10 ml BID LISSTETE Administration Sodium Chloride 10 ml 03/28/21 12:45 Sodium Chloride 0.9% 10 Ml Flush Syringe IV PRN PRN LINE FLUSH Nutrition/Malnutrition Assess - Dietary Evaluation Nutrition/Malnutrition Findings: Nutrition Notes Start: 03/29/21 14:40 Freq: Status: Active Protocol: Document 04/03/21 14:34 GB (Rec: 04/03/21 14:41 GB [id number]) Nutrition Notes Initial or Follow up Reassessment Current Diagnosis Hypertension,Heart Failure Other Pertinent Diagnosis SOB Current Diet cardiac Labs/Tests 04/02: BUN 22, creatinine 0.7, glucose 149, AST 42 Pertinent Medications reviewed Height 5 ft 5 in Weight 86.6 kg [place] Body Weight (kg) 61.81 BMI 31.7 Weight change and time frame +7 kg from admit. +8% gain. Weight Status Obese Subjective/Other Information PO intake of meals recorded at 75% or greater and independent with meals. Percent of energy/protein needs met: PO intake of 75% or greater of meals TID daily will meet 90% or greater of estimated energy needs. Burn Absent Trauma Absent GI Symptoms None Food Allergy No Skin Integrity/Comment no reported skin complications Current % PO Good (75-100%) Minimum of two criteria No #1 Nutrition Diagnosis Predicted suboptimal energy intake Comments: depending on duration and complications of possible covid and treatments 04/03: PO intake of meals recorded at 75% or greater Etiology SOB As Evidenced by Signs and Symptoms reported decreased PO r/t decreased appetite Diagnosis Progress(for reassessment Improved documentation) Is patient on ventilator? No Is Patient Ambulatory and/or Out of Bed Yes REE-([place]-St. Jeor-ambulatory/OOB) [ [id number]] Kcal/Kg value to use for calculation 22 Approximate Energy Requirements Using 1905 kcal/Kg Calculation Used for Recommendations Kcal/kg Additional Notes Protein: 0.8-1 g/kg @83k- 83g Fluids: 1 ml/kcal or per MD Nutrition Intervention Change Diet Order: continue Nutrition Support: n/a Add Supplement/Snack (indicate name/kcal n/a /protein ) Goal #1 PO intake of meals to be 50% or greater TID daily for LOS 04/03: met - 75% or greater, continues Goal #2 Weight to maintain within +/-3 % current weight for LOS 04/03: +8% gain, not met, continues: weight change could be resulted from medication regime Follow-Up By: 04/10/21 Additional Comments nursing staff to monitor and record PO intake of meals daily - continues
[2021-04-06] MEDS: ASPIRIN 81 MG TAB CHEW PO SCH (09:34)
[2021-04-06] MEDS: SACUBITRIL/VALSARTAN 49-51 MG TAB PO SCH ×2 (09:34→22:28)
[2021-04-06] MEDS: carvediloL 25 MG TAB PO SCH ×2 (09:34→22:13)
[2021-04-06] MEDS: ENOXAPARIN 40 MG/0.4 ML INJ SUB-Q SCH (09:34)
[2021-04-06] MEDS: BUDESONIDE 0.5 MG/2 ML NEBU IH SCH ×2 (10:57→10:58)
[2021-04-06] MEDS: ALBUTEROL 2.5 MG/3 ML NEBU IH SCH ×2 (10:59→15:09)
--- NOTE | 2021-04-06 11:44 | Progress Note ---
Assessment and Plan Acute hypoxemic respiratory failure COVID-19 virus infection Pneumonia due to COVID-19 virus CAD (coronary artery disease) HFrEF (heart failure with reduced ejection fraction) HTN - follow repeat ABG - continue care as below otherwise; - continue to wean supplemental oxygen for target O2 sat's > 90% acutely - aspiration precautions - bronchodilators with pulmonary hygiene per RT - prn diuresis - avoid nephrotoxins, renally dose all medications - continue to avoid benzodiazepine's, reduce the possibility of delirium - s/p AB's per ID rec's (rocephin & Zithromax) - prn analgesia per pain score - Maintenance of sleep-wake cycle, avoid delirium - G.I. & VTE prophylaxis - PT/OT/ROM exercises - continue mobility protocols for pressure ulcer prophylaxis - Monitor hemodynamics closely - continue other care per attending / other consultants - discharge planning ongoing concurrently COVID SPECIFIC INTERVENTIONS - Remdesivir as per ID/Pulmonary developed protocols (Received) - continue systemic steroids for severe COVID-19 infection empirically (Solumedrol) - follow repeat COVID tests results - zinc and vitamin C supplementation - Monitor inflammatory markers per facility protocol - ferritin, Ddimer, CRP - therapeutic anticoagulation per system Protocol based on d-dimer and clinical considerations (VTE prophylaxis) - Continue contact and airborne isolation .... Re-evaluate in am & prn I have spent ( >35 ) minutes with the patient w/ >50% of the time spent counseling and/or coordinating care for this patient. Counseling topics and/or how time was spent coordinating patient's care is outlined in the impression and plan above. Subjective Date of service: 04/06/21 Principal diagnosis: Acute hypoxemic resp failure; COVID-19 infxn; Pneumonia; CAD; HFrEF; HTN Interval history: Patient is seen today for: Acute hypoxemic respiratory failure; COVID-19 virus infection; Pneumonia due to COVID-19 virus; CAD; HFrEF; HTN Seen and examined at bedside; 24hour events reviewed; nursing and respiratory care staff consulted; no adverse overnight events reported to me; resting in bed; feels better; up in chair; FiO2 down to 60%; denies chest pain; No N/V/F/C Objective Vital Signs - 12hr 04/06/21 04/06/21 04/06/21 00:01 02:00 02:19 Temperature 98.4 F Pulse Rate 78 Respiratory 22 Rate Blood Pressure 109/61 O2 Sat by Pulse 92 92 92 Oximetry 04/06/21 04/06/21 05:31 08:00 Temperature 97.9 F Pulse Rate 88 Respiratory 18 Rate Blood Pressure 140/86 O2 Sat by Pulse 82 L 93 Oximetry Constitutional: no acute distress, alert, other (elderly male with mildly increased respiratory effort at rest) Eyes: non-icteric ENT: oropharynx moist Neck: supple, no lymphadenopathy, no JVD Effort: mildly labored Ascultation: Bilateral: rhonchi Percussion: Bilateral: not dull Cardiovascular: regular rate and rhythm Gastrointestinal: normoactive bowel sounds, soft, non-tender, non-distended (protuberant) Integumentary: normal Extremities: no cyanosis, no edema Neurologic: normal mental status, non-focal exam, pupils equal and round, CN II- XII normal Psychiatric: mood appropriate, affect normal CBC and BMP: 04/06/21 05:03 04/06/21 05:03 ABG, PT/INR, D-dimer: ABG ABG pH 7.264 (7.320-7.450) L 03/29/21 20:03 POC ABG pCO2 42.0 mmHg (32.0-48.0) 03/29/21 20:03 POC ABG pO2 51.4 mmHg (83-108) L 03/29/21 20:03 POC ABG HCO3 18.6 03/29/21 20:03 ABG O2 Saturation 78.9 (0-100) 03/29/21 20:03 PT/INR, D-dimer PT 13.2 Sec. (12.2-14.9) 03/28/21 Unknown INR 0.95 (0.87-1.13) 03/28/21 Unknown D-Dimer 8753.33 ng/mlDDU (0-234) H 04/06/21 05:03 Abnormal lab findings: Abnormal Labs 03/28/21 03/28/21 03/28/21 08:26 09:25 09:25 WBC RDW Plt Count Lymph % (Auto) [place] % (Auto) Lymph # (Auto) [place] # (Auto) Baso # (Auto) Seg Neutrophils % Lymphocytes % (Manual) Seg Neutrophils # Seg Neutrophils # Man Lymphocytes # (Manual) APTT D-Dimer 1100.30 H ABG pH POC ABG pO2 ABG Oxyhemoglobin ABG Glucose Carbon Dioxide BUN Creatinine Glucose 109 H POC Glucose Magnesium 2.40 H Ferritin AST Lactate Dehydrogenase 677 H C-Reactive Protein 13.70 H Albumin Arterial Blood Glucose Arterial Blood Ionized Calcium Ur Specific [place] Coronavirus (PCR) 03/28/21 03/28/21 03/28/21 09:25 Unknown Unknown WBC RDW Plt Count 96 L Lymph % (Auto) 7.2 L [place] % (Auto) 10.8 H Lymph # (Auto) 0.5 L [place] # (Auto) Baso # (Auto) Seg Neutrophils % 81.8 H Lymphocytes % (Manual) Seg Neutrophils # Seg Neutrophils # Man Lymphocytes # (Manual) APTT D-Dimer ABG pH POC ABG pO2 ABG Oxyhemoglobin ABG Glucose Carbon Dioxide BUN Creatinine Glucose POC Glucose Magnesium Ferritin 1340.0 H AST Lactate Dehydrogenase C-Reactive Protein Albumin Arterial Blood Glucose Arterial Blood Ionized Calcium Ur Specific [place] 1.038 H Coronavirus (PCR) 03/28/21 03/28/21 03/28/21 Unknown Unknown Unknown WBC RDW Plt Count Lymph % (Auto) [place] % (Auto) Lymph # (Auto) [place] # (Auto) Baso # (Auto) Seg Neutrophils % Lymphocytes % (Manual) Seg Neutrophils # Seg Neutrophils # Man Lymphocytes # (Manual) APTT 38.7 H D-Dimer ABG pH POC ABG pO2 ABG Oxyhemoglobin ABG Glucose Carbon Dioxide BUN Creatinine Glucose 120 H POC Glucose Magnesium Ferritin AST 73 H Lactate Dehydrogenase C-Reactive Protein Albumin 3.4 L Arterial Blood Glucose Arterial Blood Ionized Calcium Ur Specific [place] Coronavirus (PCR) Positive A 03/29/21 03/29/21 03/29/21 02:30 02:30 02:30 WBC RDW 15.4 H Plt Count 107 L Lymph % (Auto) 5.6 L [place] % (Auto) 10.0 H Lymph # (Auto) 0.4 L [place] # (Auto) Baso # (Auto) Seg Neutrophils % 84.2 H Lymphocytes % (Manual) Seg Neutrophils # Seg Neutrophils # Man Lymphocytes # (Manual) APTT D-Dimer ABG pH POC ABG pO2 ABG Oxyhemoglobin ABG Glucose Carbon Dioxide BUN Creatinine Glucose 128 H POC Glucose Magnesium 2.60 H Ferritin AST 64 H Lactate Dehydrogenase C-Reactive Protein Albumin 3.1 L Arterial Blood Glucose Arterial Blood Ionized Calcium Ur Specific [place] Coronavirus (PCR) 03/29/21 03/29/21 03/29/21 15:30 19:48 20:03 WBC RDW Plt Count Lymph % (Auto) [place] % (Auto) Lymph # (Auto) [place] # (Auto) Baso # (Auto) Seg Neutrophils % Lymphocytes % (Manual) Seg Neutrophils # Seg Neutrophils # Man Lymphocytes # (Manual) APTT D-Dimer ABG pH 7.264 L POC ABG pO2 51.4 L ABG Oxyhemoglobin 77.6 L ABG Glucose 275 H Carbon Dioxide 21 L BUN Creatinine Glucose 125 H POC Glucose 189 H Magnesium Ferritin AST 64 H Lactate Dehydrogenase C-Reactive Protein Albumin 2.8 L Arterial Blood Glucose 275 H Arterial Blood Ionized Calcium 4.5 L Ur Specific [place] Coronavirus (PCR) 03/30/21 03/31/21 03/31/21 06:07 07:38 07:38 WBC 11.8 H RDW 15.4 H Plt Count Lymph % (Auto) 2.4 L [place] % (Auto) 8.4 H Lymph # (Auto) 0.3 L [place] # (Auto) 1.0 H Baso # (Auto) Seg Neutrophils % 89.0 H Lymphocytes % (Manual) Seg Neutrophils # 10.5 H Seg Neutrophils # Man Lymphocytes # (Manual) APTT D-Dimer > 43957 H ABG pH POC ABG pO2 ABG Oxyhemoglobin ABG Glucose Carbon Dioxide BUN Creatinine Glucose 131 H POC Glucose Magnesium Ferritin AST 49 H Lactate Dehydrogenase C-Reactive Protein Albumin 2.7 L Arterial Blood Glucose Arterial Blood Ionized Calcium Ur Specific [place] Coronavirus (PCR) 03/31/21 03/31/21 04/01/21 07:38 07:38 06:37 WBC RDW Plt Count Lymph % (Auto) [place] % (Auto) Lymph # (Auto) [place] # (Auto) Baso # (Auto) Seg Neutrophils % Lymphocytes % (Manual) Seg Neutrophils # Seg Neutrophils # Man Lymphocytes # (Manual) APTT D-Dimer ABG pH POC ABG pO2 ABG Oxyhemoglobin ABG Glucose Carbon Dioxide BUN Creatinine 0.7 L 0.7 L Glucose 122 H 117 H POC Glucose Magnesium Ferritin 1419.0 H AST 42 H 53 H Lactate Dehydrogenase 752 H C-Reactive Protein 4.40 H Albumin 2.9 L 3.2 L Arterial Blood Glucose Arterial Blood Ionized Calcium Ur Specific [place] Coronavirus (PCR) 04/02/21 04/02/21 04/02/21 05:57 05:57 05:57 WBC 13.6 H RDW 15.7 H Plt Count Lymph % (Auto) 2.3 L [place] % (Auto) 10.5 H Lymph # (Auto) 0.3 L [place] # (Auto) 1.4 H Baso # (Auto) 0.2 H Seg Neutrophils % 86.0 H Lymphocytes % (Manual) Seg Neutrophils # 11.7 H Seg Neutrophils # Man Lymphocytes # (Manual) APTT D-Dimer > 15874 H ABG pH POC ABG pO2 ABG Oxyhemoglobin ABG Glucose Carbon Dioxide BUN 22 H Creatinine 0.7 L Glucose 149 H POC Glucose Magnesium Ferritin AST 42 H Lactate Dehydrogenase 811 H C-Reactive Protein 2.00 H Albumin 3.0 L Arterial Blood Glucose Arterial Blood Ionized Calcium Ur Specific [place] Coronavirus (PCR) 04/02/21 04/02/21 04/03/21 05:57 21:00 05:56 WBC RDW Plt Count Lymph % (Auto) [place] % (Auto) Lymph # (Auto) [place] # (Auto) Baso # (Auto) Seg Neutrophils % Lymphocytes % (Manual) Seg Neutrophils # Seg Neutrophils # Man Lymphocytes # (Manual) APTT D-Dimer > 14238 H ABG pH POC ABG pO2 ABG Oxyhemoglobin ABG Glucose Carbon Dioxide BUN Creatinine Glucose POC Glucose 160 H Magnesium Ferritin 1180.0 H AST Lactate Dehydrogenase C-Reactive Protein Albumin Arterial Blood Glucose Arterial Blood Ionized Calcium Ur Specific [place] Coronavirus (PCR) 04/03/21 04/06/21 04/06/21 05:56 05:03 05:03 WBC 11.7 H RDW 15.6 H Plt Count Lymph % (Auto) [place] % (Auto) Lymph # (Auto) [place] # (Auto) Baso # (Auto) Seg Neutrophils % Lymphocytes % (Manual) 1.0 L Seg Neutrophils # Seg Neutrophils # Man 11.2 H Lymphocytes # (Manual) 0.1 L APTT D-Dimer 8753.33 H ABG pH POC ABG pO2 ABG Oxyhemoglobin ABG Glucose Carbon Dioxide BUN Creatinine Glucose POC Glucose Magnesium Ferritin 1117.0 H AST Lactate Dehydrogenase C-Reactive Protein Albumin Arterial Blood Glucose Arterial Blood Ionized Calcium Ur Specific [place] Coronavirus (PCR) 04/06/21 05:03 WBC RDW Plt Count Lymph % (Auto) [place] % (Auto) Lymph # (Auto) [place] # (Auto) Baso # (Auto) Seg Neutrophils % Lymphocytes % (Manual) Seg Neutrophils # Seg Neutrophils # Man Lymphocytes # (Manual) APTT D-Dimer ABG pH POC ABG pO2 ABG Oxyhemoglobin ABG Glucose Carbon Dioxide 31 H BUN 22 H Creatinine 0.7 L Glucose 145 H POC Glucose Magnesium Ferritin AST Lactate Dehydrogenase C-Reactive Protein Albumin Arterial Blood Glucose Arterial Blood Ionized Calcium Ur Specific [place] Coronavirus (PCR) Chest x-ray: other (none today) Allied health notes reviewed: nursing
--- NOTE | 2021-04-06 11:55 | Progress Note ---
Assessment and Plan Cultures: SARS CoV2 PCR: Positive 03/28/2021 blood culture: No growth A/P: 58-year-old male with hypertension, CHF, CAD admitted with cough, fever, shortness of breath, generalized weakness along with some loose stools: #Bilateral pneumonia: Secondary to COVID-19. Breakthrough infection. Vacci nated against COVID-19 with Pfizer back in Jul/Aug 2020. CTA negative for pulmonary thromboembolism, showed bilateral extensive pneumonitis. Elevated markers. Allergic reaction to remdesivir, hence stopped after 1st dose. Completed empiric abx due to mildly elevated procalcitonin, immunocompromised status #Acute hypoxic respiratory failure: Requiring salter nasal cannula. #Elevated d-dimer: bilateral venous duplexes negative for DVT, initial CTA on admission was negative for PE #Transaminitis: Likely secondary to COVID-19. #Thrombocytopenia #Rheumatoid arthritis, immunocompromised host: On leflunomide. #CHF Recs: continue steroids x 10-14 days. Pulm following. not a candidate for Actemra D-dimer downtrending to 8753. CRP 1.2 prophylactic anticoagulation based on d-dimer per hospital protocol guarded prognosis ID will sign off. Please reconsult as needed Tanya Hazel MD, FACP [facility] O: [phone] F: [phone] Subjective Date of service: 04/06/21 Principal diagnosis: Acute hypoxemic resp failure; COVID-19 infxn; Pneumonia; CAD; HFrEF; HTN Interval history: Afebrile. Remains on mini high flow at 15 L/min. Objective - Exam Narrative Exam: Physical Exam (reviewed in chart to minimize risk of transmission) Constitutional: deferred Head, Ears, Nose: deferred Eyes: deferred Neck: deferred Oral: deferred Cardiovascular: deferred Respiratory: deferred GI: deferred Musculoskeletal: deferred Skin: deferred Hem/Lymphatic: deferred Psych: deferred Neurological: deferred - Constitutional Vitals: Vital Signs Temp Pulse Resp BP Pulse Ox 97.9 F 88 18 140/86 94 04/06/21 05:31 04/06/21 05:31 04/06/21 05:31 04/06/21 05:31 04/06/21 10:00 Temperature -Last 24 Hours Temperature 97.9 F Temperature 98.4 F - Labs CBC & Chem 7: 04/06/21 05:03 04/06/21 05:03 Labs: Abnormal lab results 04/06/21 04/06/21 04/06/21 Range/Units 05:03 05:03 05:03 WBC 11.7 H (4.5-11.0) K/mm3 RDW 15.6 H (13.2-15.2) % Lymphocytes % (Manual) 1.0 L (13.4-35.0) % Seg Neutrophils # Man 11.2 H (1.8-7.7) K/mm3 Lymphocytes # (Manual) 0.1 L (1.2-5.4) K/mm3 D-Dimer 8753.33 H (0-234) ng/mlDDU Carbon Dioxide 31 H (22-30) mmol/L BUN 22 H (9-20) mg/dL Creatinine 0.7 L (0.8-1.3) mg/dL Glucose 145 H (75-100) mg/dL
[2021-04-06 12:02] LABS: ABG Oxygen Saturation 93.7 % (95.0-99.0); ABG PCO2 39.3 mm Hg; ABG PH 7.455 pH Units (7.350-7.450)
[2021-04-06] MEDS: GABAPENTIN 300 MG CAP PO SCH (17:12)
[2021-04-06] MEDS: PRAVASTATIN 40 MG TAB PO SCH (22:13)
[2021-04-07] MEDS: methylPREDNISolone Sod Succinate 125 MG/2 ML INJ IV SCH ×4 (00:03→17:40)
[2021-04-07] MEDS: BUDESONIDE 0.5 MG/2 ML NEBU IH SCH ×3 (00:08→23:10)
[2021-04-07] MEDS: ALBUTEROL 2.5 MG/3 ML NEBU IH SCH ×4 (00:08→23:10)
--- NOTE | 2021-04-07 08:07 | Progress Note ---
Assessment and Plan Assessment and plan: 58-year-old male with past medical history of hypertension, congestive heart failure, PA 18 years ago presenting for complaint of shortness of breath of onset last Friday. Patient states that over the course the last 2 days his symptoms progressively worsened. He had associated symptoms of fever, dry cough, poor p.o. intake, diarrhea and generalized weakness. Ongoing evaluation and treatment for covid pneumonia Acute hypoxic respiratory failure COVID-19 pneumonia Sepsis. Present on admission. Patient met criteria given the fever, tachycardia and diagnosis of pneumonia. Transaminitis. Etiology secondary to sepsis. Chronic CHF. Hypertension. Hyperlipidemia. History of rheumatoid arthritis. Peripheral neuropathy. Hospital Course: 03/29/2021: Cardiology evaluated patient due to 5 beats NSVT. Increased coreg, continue entresto. Patient follows with Dr Martinez. ID evaluated patient, Remdesivir started. Will continue supportive care. 03/30/2021: Respiratory distress overnight. LIkely an allergic reaction to remdesivir. Remdesivir has since been discontinued. Was on BIPAP on encounter and has since been dropped to 15 l/min salter nc. Continue supportive management. Will order inflammatory markers. 03/31/2021: Remains on salter nc 15l /min. sats 88-90% but in no distress. Continue supporitve management. Increased steroids to 60 q6hr. Obtained Pu lmonology consult. CXR ordered, will follow. 04/01/2021: Remains on salter nc 12l /min. sats 88-90% but in no distress. Titrate down O2 requirements, ok with sats > 88%. Continue supporitve management . Lasix 20 mg IV x 1 ordered. 04/02/2021: Remains on salter nc 12l /min. Able to ambulate without any distress but does desaturate to 78%. Sats 88-90% when resting. Titrate down O2 requirements, ok with sats > 88%. Lasix 40 mg IV twice daily x 2 doses ordered. Continue supportive management 04/03/2021. Remains on salter nc but decreased from 12l /min to 8 L/min. Titrate down O2 requirements, ok with sats > 88%. Continue Lasix as needed 04/04/2021. Patient's oxygen was decreased to 10 L/min but was noted to have desaturation into the 70s. Therefore, patient was placed on 15 L with nonrebre ather. Continue prone positioning as able. Patient has significantly elevated D- dimer. However, Doppler studies and CTA of chest were negative. Continue to trend D-dimer along with other inflammatory markers. Prognosis is guarded 04/05/2021. Patient sitting up in a chair and states that he feels comfortable. Patient previously on nonrebreather plus Salter nasal cannula 15 L FiO2 100% which has now been weaned to 8 L. Continue prone positioning as possible. Repeat D-dimer on 04/03 was still greater than 10,000 but CTA of chest and Doppler studies of lower extremities were negative. Recheck D-dimer in a.m. 04/06/2021. D-dimer is slightly decreased to ~8700. Patient remains on salter nasal cannula 8 L/min. Continue prone positioning as possible. Continue to trend inflammatory markers. 04/07/2021. Patient remains on salter nasal cannula 8 L/min. Continue prone positioning as possible. Continue to trend inflammatory markers. PT/OT. Exercise pulse oximetry testing at discharge. History Interval history: No new issues overnight Hospitalist Physical - Constitutional Vitals: Temp Pulse Resp BP Pulse Ox 98.0 F 78 20 109/61 95 04/06/21 21:58 04/06/21 22:13 04/06/21 22:00 04/06/21 22:13 04/06/21 22:00 General appearance: Present: no acute distress - EENT Eyes: Present: PERRL, EOM intact ENT: hearing intact, clear oral mucosa, dentition normal - Neck Neck: Present: supple, normal ROM - Respiratory Respiratory effort: normal Respiratory: bilateral: CTA - Cardiovascular Rhythm: regular Heart Sounds: Present: S1 & S2. Absent: gallop, rub - Extremities Extremities: no ischemia, No edema, Full ROM - Abdominal General gastrointestinal: soft, non-tender, non-distended, normal bowel sounds - Integumentary Integumentary: Present: clear, warm, dry - Neurologic Neurologic: CNII-XII intact, moves all extremities HEART Score - HEART Score Troponin: Troponin T 0.013 ng/mL (0.00-0.029) 03/28/21 Unknown Results - Labs CBC & Chem 7: 04/06/21 05:03 04/06/21 05:03 Labs: Laboratory Last Values WBC 11.7 K/mm3 (4.5-11.0) H 04/06/21 05:03 RBC 4.04 M/mm3 (3.65-5.03) 04/06/21 05:03 Hgb 12.3 gm/dl (11.8-15.2) 04/06/21 05:03 Hct 36.4 % (35.5-45.6) 04/06/21 05:03 MCV 90 fl (84-94) 04/06/21 05:03 MCH 31 pg (28-32) 04/06/21 05:03 MCHC 34 % (32-34) 04/06/21 05:03 RDW 15.6 % (13.2-15.2) H 04/06/21 05:03 Plt Count 184 K/mm3 (140-440) 04/06/21 05:03 Lymph % (Auto) 2.3 % (13.4-35.0) L 04/02/21 05:57 [place] % (Auto) 10.5 % (0.0-7.3) H 04/02/21 05:57 Eos % (Auto) 0.0 % (0.0-4.3) 04/02/21 05:57 Baso % (Auto) 1.2 % (0.0-1.8) 04/02/21 05:57 Lymph # (Auto) 0.3 K/mm3 (1.2-5.4) L 04/02/21 05:57 [place] # (Auto) 1.4 K/mm3 (0.0-0.8) H 04/02/21 05:57 Eos # (Auto) 0.0 K/mm3 (0.0-0.4) 04/02/21 05:57 Baso # (Auto) 0.2 K/mm3 (0.0-0.1) H 04/02/21 05:57 Add Manual Diff Complete 04/06/21 05:03 Total Counted 100 04/06/21 05:03 Seg Neutrophils % System Operation Superintendent 04/06/21 05:03 Band Neutrophils % 1.0 % 04/06/21 05:03 Lymphocytes % (Manual) 1.0 % (13.4-35.0) L 04/06/21 05:03 Monocytes % (Manual) 2.0 % (0.0-7.3) 04/06/21 05:03 Nucleated RBC % Not Reportable 04/06/21 05:03 Seg Neutrophils # 11.7 K/mm3 (1.8-7.7) H 04/02/21 05:57 Seg Neutrophils # Man 11.2 K/mm3 (1.8-7.7) H 04/06/21 05:03 Band Neutrophils # 0.1 K/mm3 04/06/21 05:03 Lymphocytes # (Manual) 0.1 K/mm3 (1.2-5.4) L 04/06/21 05:03 Abs React Lymphs (Man) 0.0 K/mm3 04/06/21 05:03 Monocytes # (Manual) 0.2 K/mm3 (0.0-0.8) 04/06/21 05:03 Eosinophils # (Manual) 0.0 K/mm3 (0.0-0.4) 04/06/21 05:03 Basophils # (Manual) 0.0 K/mm3 (0.0-0.1) 04/06/21 05:03 Metamyelocytes # 0.0 K/mm3 04/06/21 05:03 Myelocytes # 0.0 K/mm3 04/06/21 05:03 Promyelocytes # 0.0 K/mm3 04/06/21 05:03 Blast Cells # 0.0 K/mm3 04/06/21 05:03 WBC Morphology Not Reportable 04/06/21 05:03 Hypersegmented Neuts Not Reportable 04/06/21 05:03 Hyposegmented Neuts Not Reportable 04/06/21 05:03 Hypogranular Neuts Not Reportable 04/06/21 05:03 Smudge Cells Not Reportable 04/06/21 05:03 Toxic Granulation Not Reportable 04/06/21 05:03 Toxic Vacuolation Not Reportable 04/06/21 05:03 Dohle Bodies Not Reportable 04/06/21 05:03 Pelger-Huet Anomaly Not Reportable 04/06/21 05:03 Adan Rods Not Reportable 04/06/21 05:03 Platelet Estimate Consistent w auto 04/06/21 05:03 Clumped Platelets Not Reportable 04/06/21 05:03 Plt Clumps, EDTA Not Reportable 04/06/21 05:03 Large Platelets Not Reportable 04/06/21 05:03 Giant Platelets Not Reportable 04/06/21 05:03 Platelet Satelliting Not Reportable 04/06/21 05:03 Plt Morphology Comment Not Reportable 04/06/21 05:03 RBC Morphology Not Reportable 04/06/21 05:03 Dimorphic RBCs Not Reportable 04/06/21 05:03 Polychromasia Not Reportable 04/06/21 05:03 Hypochromasia Not Reportable 04/06/21 05:03 Poikilocytosis 1+ 04/06/21 05:03 Anisocytosis Not Reportable 04/06/21 05:03 Microcytosis Not Reportable 04/06/21 05:03 Macrocytosis Not Reportable 04/06/21 05:03 Spherocytes Not Reportable 04/06/21 05:03 Pappenheimer Bodies Not Reportable 04/06/21 05:03 Sickle Cells Not Reportable 04/06/21 05:03 Target Cells Not Reportable 04/06/21 05:03 Tear Drop Cells Not Reportable 04/06/21 05:03 Ovalocytes Not Reportable 04/06/21 05:03 Helmet Cells Not Reportable 04/06/21 05:03 [place] Bodies Not Reportable 04/06/21 05:03 [place] Rings Not Reportable 04/06/21 05:03 [place] Cells Not Reportable 04/06/21 05:03 Bite Cells Not Reportable 04/06/21 05:03 Crenated Cell Not Reportable 04/06/21 05:03 Elliptocytes Not Reportable 04/06/21 05:03 Acanthocytes (Spur) Not Reportable 04/06/21 05:03 Rouleaux Not Reportable 04/06/21 05:03 Hemoglobin C Crystals Not Reportable 04/06/21 05:03 Schistocytes Not Reportable 04/06/21 05:03 Malaria parasites Not Reportable 04/06/21 05:03 Luke Bodies Not Reportable 04/06/21 05:03 Hem Pathologist Commnt No 04/06/21 05:03 PT 13.2 Sec. (12.2-14.9) 03/28/21 Unknown INR 0.95 (0.87-1.13) 03/28/21 Unknown APTT 38.7 Sec. (24.2-36.6) H 03/28/21 Unknown D-Dimer 8753.33 ng/mlDDU (0-234) H 04/06/21 05:03 ABG pH 7.455 pH Units (7.350-7.450) H 04/06/21 11:40 POC ABG pCO2 42.0 mmHg (32.0-48.0) 03/29/21 20:03 ABG pCO2 39.3 mm Hg 04/06/21 11:40 POC ABG pO2 51.4 mmHg (83-108) L 03/29/21 20:03 ABG pO2 69.0 mm Hg (80.0-90.0) L 04/06/21 11:40 POC ABG HCO3 18.6 03/29/21 20:03 ABG HCO3 27.0 mmol/L (20.0-26.0) H 04/06/21 11:40 ABG O2 Saturation 93.7 % (95.0-99.0) L 04/06/21 11:40 ABG O2 Content 18.1 (0.0-44) 04/06/21 11:40 POC ABG Base Excess -8.0 03/29/21 20:03 ABG Base Excess 3.0 mmol/L (-2.0-3.0) 04/06/21 11:40 ABG Hemoglobin 13.8 gm/dl (14.0-18.0) L 04/06/21 11:40 ABG Oxyhemoglobin 77.6 (94-98) L 03/29/21 20:03 ABG Carboxyhemoglobin 0.4 % (0.0-5.0) 04/06/21 11:40 ABG Methemoglobin Not Reportable 04/06/21 11:40 ABG Sodium 136.8 mmol/L (136.0-145.0) 03/29/21 20:03 ABG Potassium 4.0 mmol/L (3.40-4.50) 03/29/21 20:03 ABG Chloride 104.0 mmol/L (98-107) 03/29/21 20:03 ABG Glucose 275 mg/dL (65-95) H 03/29/21 20:03 Oxyhemoglobin 93.3 % (95.0-99.0) L 04/06/21 11:40 Carboxyhemoglobin 1.5 (0.5-1.5) 03/29/21 20:03 FiO2 21 % 04/06/21 11:40 FiO2 % 100.0 03/29/21 20:03 Sodium 138 mmol/L (137-145) 04/06/21 05:03 Potassium 4.1 mmol/L (3.6-5.0) 04/06/21 05:03 Chloride 103.1 mmol/L (98-107) 04/06/21 05:03 Carbon Dioxide 31 mmol/L (22-30) H 04/06/21 05:03 Anion Gap 8 mmol/L 04/06/21 05:03 BUN 22 mg/dL (9-20) H 04/06/21 05:03 Creatinine 0.7 mg/dL (0.8-1.3) L 04/06/21 05:03 Estimated GFR > 60 ml/min 04/06/21 05:03 BUN/Creatinine Ratio 31 % 04/06/21 05:03 Glucose 145 mg/dL (75-100) H 04/06/21 05:03 POC Glucose 160 mg/dL (70-105) H 04/02/21 21:00 Lactic Acid 1.60 mmol/L (0.7-2.0) 03/28/21 Unknown Calcium 8.6 mg/dL (8.4-10.2) 04/06/21 05:03 Magnesium 2.60 mg/dL (1.7-2.3) H 03/29/21 02:30 Ferritin 1117.0 ng/mL (30.0-300.0) H 04/03/21 05:56 Total Bilirubin 0.90 mg/dL (0.1-1.2) 04/02/21 05:57 AST 42 units/L (5-40) H 04/02/21 05:57 ALT 32 units/L (7-56) 04/02/21 05:57 Alkaline Phosphatase 85 units/L (35-129) 04/02/21 05:57 Lactate Dehydrogenase 811 units/L (91-180) H 04/02/21 05:57 Troponin T 0.013 ng/mL (0.00-0.029) 03/28/21 Unknown C-Reactive Protein 1.20 mg/dL (0.00-1.30) 04/03/21 05:56 Total Protein 6.6 g/dL (6.3-8.2) 04/02/21 05:57 Albumin 3.0 g/dL (3.9-5) L 04/02/21 05:57 Albumin/Globulin Ratio 0.8 % 04/02/21 05:57 Procalcitonin 0.37 ng/mL (<0.15) 03/28/21 09:25 Arterial Blood Glucose 275 mg/dL (65-95) H 03/29/21 20:03 Arterial Blood Ionized Calcium 4.5 mg/dL (4.6-5.3) L 03/29/21 20:03 Urine Color [place] (Yellow) 03/28/21 Unknown Urine Turbidity Clear (Clear) 03/28/21 Unknown Urine pH 5.0 (5.0-7.0) 03/28/21 Unknown Ur Specific [place] 1.038 (1.003-1.030) H 03/28/21 Unknown Urine Protein >500 mg/dL (Negative) 03/28/21 Unknown Urine Glucose (UA) 50 mg/dL (Negative) 03/28/21 Unknown Urine Ketones Tr mg/dL (Negative) 03/28/21 Unknown Urine Blood Mod (Negative) 03/28/21 Unknown Urine Nitrite Neg (Negative) 03/28/21 Unknown Urine Bilirubin Neg (Negative) 03/28/21 Unknown Urine Urobilinogen 2.0 mg/dL (<2.0) 03/28/21 Unknown Ur Leukocyte Esterase Neg (Negative) 03/28/21 Unknown Urine WBC (Auto) 6.0 /HPF (0.0-6.0) 03/28/21 Unknown Urine RBC (Auto) 2.0 /HPF (0.0-6.0) 03/28/21 Unknown U Epithel Cells (Auto) < 1.0 /HPF (0-13.0) 03/28/21 Unknown Urine Mucus Few /HPF 03/28/21 Unknown Coronavirus (PCR) Positive (Negative) A 03/28/21 Unknown [place]/IV: Voiding Method Toilet Active Medications - Current Medications Current Medications: Generic Name Dose Route Start Last Admin Trade Name Freq PRN Reason Stop Dose Admin Acetaminophen 650 mg 03/28/21 12:45 Acetaminophen 325 Mg Tab PO Q4H PRN Pain MILD(1-3)/Fever >100.5/MIRANDA Albuterol 2.5 mg 03/29/21 08:00 04/07/21 00:08 Albuterol 2.5 Mg/3 Ml Nebu IH Not Given TIDRT [facility] Aspirin 81 mg 03/29/21 10:00 04/06/21 09:34 Aspirin 81 Mg Tab Chew PO 81 mg QDAY LISSETTE Administration Benzonatate 100 mg 03/29/21 07:00 04/06/21 22:12 Benzonatate 100 Mg Cap PO 100 mg Q8HR LISSETTE Administration Budesonide 0.5 mg 03/28/21 14:00 04/07/21 00:08 Budesonide 0.5 Mg/2 Ml Nebu IH Not Given BID [facility] Carvedilol 25 mg 03/29/21 10:00 04/06/21 22:13 Carvedilol 25 Mg Tab PO 25 mg Q12HR LISSETTE Administration Enoxaparin Sodium 40 mg 03/28/21 14:00 04/06/21 09:34 Enoxaparin 40 Mg/0.4 Ml Inj SUB-Q 40 mg DAILY LISSETTE Administration Protocol Gabapentin 300 mg 03/29/21 18:00 04/06/21 17:12 Gabapentin 300 Mg Cap PO 300 mg QPM LISSETTE Administration Labetalol HCl 10 mg 03/28/21 15:34 Labetalol 20 Mg/4 Ml Inj IV Q6HR PRN sbp > 160, hold for hr < 70 Methylprednisolone Sodium Succinate 60 mg 03/31/21 18:00 04/07/21 00:03 Methylprednisolone Sod Succinate 125 Mg/2 Ml Inj IV 04/08/21 14:00 60 mg Q6HR LISSETTE Administration Miscellaneous Medication 20 mg 03/29/21 10:00 Leflunomide PO DAILY [facility] Ondansetron HCl 4 mg 03/28/21 12:45 Ondansetron 4 Mg/2 Ml Inj IV Q8H PRN Nausea And Vomiting Oxycodone/Acetaminophen 1 tab 03/28/21 12:45 04/01/21 10:36 Oxycodone /Acetaminophen 5-325mg Tab PO 1 tab Q6H PRN Administration Pain, Moderate (4-6) Pravastatin Sodium 40 mg 03/29/21 22:00 04/06/21 22:13 Pravastatin 40 Mg Tab PO 40 mg QHS LISSETTE Administration Sodium Chloride 10 ml 03/28/21 22:00 04/06/21 22:14 Sodium Chloride 0.9% 10 Ml Flush Syringe IV 10 ml BID LISSETTE Administration Sodium Chloride 10 ml 03/28/21 12:45 Sodium Chloride 0.9% 10 Ml Flush Syringe IV PRN PRN LINE FLUSH Nutrition/Malnutrition Assess - Dietary Evaluation Nutrition/Malnutrition Findings: Nutrition Notes Start: 03/29/21 14: 40 Freq: Status: Active Protocol: Document 04/03/21 14:34 GB (Rec: 04/03/21 14:41 GB [id number]) Nutrition Notes Initial or Follow up Reassessment Current Diagnosis Hypertension,Heart Failure Other Pertinent Diagnosis SOB Current Diet cardiac Labs/Tests 04/02: BUN 22, creatinine 0.7, glucose 149, AST 42 Pertinent Medications reviewed Height 5 ft 5 in Weight 86.6 kg [place] Body Weight (kg) 61.81 BMI 31.7 Weight change and time frame +7 kg from admit. +8% gain. Weight Status Obese Subjective/Other Information PO intake of meals recorded at 75% or greater and independent with meals. Percent of energy/protein needs met: PO intake of 75% or greater of meals TID daily will meet 90% or greater of estimated energy needs. Burn Absent Trauma Absent GI Symptoms None Food Allergy No Skin Integrity/Comment no reported skin complications Current % PO Good (75-100%) Minimum of two criteria No #1 Nutrition Diagnosis Predicted suboptimal energy intake Comments: depending on duration and complications of possible covid and treatments 04/03: PO intake of meals recorded at 75% or greater Etiology SOB As Evidenced by Signs and Symptoms reported decreased PO r/t decreased appetite Diagnosis Progress(for reassessment Improved documentation) Is patient on ventilator? No Is Patient Ambulatory and/or Out of Bed Yes REE-([place] or-ambulatory/OOB) [ [id number]] Kcal/Kg value to use for calculation 22 Approximate Energy Requirements Using 1905 kcal/Kg Calculation Used for Recommendations Kcal/kg Additional Notes Protein: 0.8-1 g/kg @83k- 83g Fluids: 1 ml/kcal or per MD Nutrition Intervention Change Diet Order: continue Nutrition Support: n/a Add Supplement/Snack (indicate name/kcal n/a /protein ) Goal #1 PO intake of meals to be 50% or greater TID daily for LOS 04/03: met - 75% or greater, continues Goal #2 Weight to maintain within +/-3 % current weight for LOS 04/03: +8% gain, not met, continues: weight change could be resulted from medication regime Follow-Up By: 04/10/21 Additional Comments nursing staff to monitor and record PO intake of meals daily - continues
[2021-04-07] MEDS: BENZONATATE 100 MG CAP PO SCH ×3 (10:14→23:04)
[2021-04-07] MEDS: ASPIRIN 81 MG TAB CHEW PO SCH (10:18)
[2021-04-07] MEDS: SACUBITRIL/VALSARTAN 49-51 MG TAB PO SCH ×2 (10:18→23:50)
[2021-04-07] MEDS: carvediloL 25 MG TAB PO SCH ×2 (10:18→23:04)
[2021-04-07] MEDS: ENOXAPARIN 40 MG/0.4 ML INJ SUB-Q SCH (10:19)
--- NOTE | 2021-04-07 12:37 | Progress Note ---
Assessment and Plan 66-year-old male with past medical history of hypertension, congestive heart failure, ND 18 years ago presenting for complaint of shortness of breath of onset last Friday. Patient was seen and evaluated at our emergency department 2 days ago for similar symptoms. He was believed to have symptoms consistent with Covid 19 viral illness . He was discharged with prescriptions for Tessalon Perles and albuterol nebulizer and instructed to obtain outpatient COVID-19 testing. Patient states that over the course the last 2 days his sym ptoms progressively worsened. He had associated symptoms of fever, dry cough, poor p.o. intake, diarrhea and generalized weakness. Medications prescribed 2 days ago did not relieve symptoms. When patient had near syncopal event, who is a charge out clerk at our facility recommended he come back to our hospital to be evaluated and treated. On arrival patient was found to be hypoxic with saturations of 80%. This improved to 93% on my encounter, patient was on 4 L nasal cannula. Of note he does have a history of congestive heart failure. He could not remember the name of his current battery tester and repairer however he did used to follow with Dr. Pabon from [facility]. He did not know what his ejection fraction was but did state he is currently taking Entresto and Coreg for his congestive heart failure. Moreover, patient has been vaccinated against COVID-19 receiving in both doses of the Pfizer vaccine back in . He denied any known sick contacts except for his who had similar symptoms but recovered uneventfully. She was not tested but is vaccinated against COVID-19. Patient has no history of smoking, alcohol or drug abuse. 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 ED Course: Azithromycin IV, Rocephin IV, Decadron IV, albuterol nebulizer Patient awake. Sitting up in chair. Patient still on High flow O2 8 litres and O2 saturation running 97%. ABG on 100% FIO2 ABG pH 7.264 (7.320-7.450) L 03/29/21 20:03 POC ABG pCO2 42.0 mmHg (32.0-48.0) 03/29/21 20:03 POC ABG pO2 51.4 mmHg (83-108) L 03/29/21 20:03 POC ABG HCO3 18.6 03/29/21 20:03 ABG O2 Saturation 78.9 (0-100) 03/29/21 20:03 PT/INR, D-dimer Denies chest pain, shortness of breath or cough at rest. Patient afebrile. Has mild leukocytosis. Blood pressure 132/72, Pulse 94 Chest xray done 03/28/21 reported Stable mild perihilar prominence. No consolidation, pleural effusion or pneumothorax. Patient has Angio CT of chest 03/28/21 reported No evidence of pulmonary thromboembolism . Extensive bilateral pneumonitis, probably viral . Patient presently on I/V solumedrol, S/C Lovenox, Benzonatate, Albuterol inhaler and Budesonide aerosol treatments. Patient finished course of Ceftriaxone, Zithromax Recommend to taper O2 slowly and keep O2 saturation above 92%. - Patient Problems (1) Acute respiratory failure with hypoxia Current Visit: Yes Status: Acute Plan to address problem: Patient still on high flow O2 8 litres Continue I/V solumedrol Continue Albuterol inhaler Continue S/C Lovenox. Continue famotidine. (2) COVID-19 virus infection Current Visit: Yes Status: Acute Plan to address problem: Patient is on I/V Solumedrol. S/C Lovenox. Management as per infectious diseases. (3) Pneumonia due to COVID-19 virus Current Visit: Yes Status: Acute Plan to address problem: Patient was on ceftriaxone and Zithromax. (4) CAD (coronary artery disease) Current Visit: Yes Status: Acute Plan to address problem: Management as per cardiology. (5) HFrEF (heart failure with reduced ejection fraction) Current Visit: Yes Status: Acute Plan to address problem: Management as per cardiology. (6) HTN (hypertension) Current Visit: Yes Status: Acute Plan to address problem: Management as per primary care. Subjective Date of service: 04/07/21 Principal diagnosis: Acute hypoxemic resp failure; COVID-19 infxn; Pneumonia; CAD; HFrEF; HTN Interval history: 66-year-old male with past medical history of hypertension, congestive heart failure, ND 18 years ago presenting for complaint of shortness of breath of onset last Friday. Patient was seen and evaluated at our emergency department 2 days ago for similar symptoms. He was believed to have symptoms consistent with Covid 19 viral illness . He was discharged with prescriptions for Tessalon Perles and albuterol nebulizer and instructed to obtain outpatient COVID-19 testing. Patient states that over the course the last 2 days his symptoms progressively worsened. He had associated symptoms of fever, dry cough, poor p.o. intake, diarrhea and generalized weakness. Medications pres cribed 2 days ago did not relieve symptoms. When patient had near syncopal event, who is a charge out clerk at our facility recommended he come back to our hospital to be evaluated and treated. On arrival patient was found to be hypoxic with saturations of 80%. This improved to 93% on my encounter, patient was on 4 L nasal cannula. Of note he does have a history of congestive heart failure. He could not remember the name of his current battery tester and repairer however he did used to follow with Dr. Pabon from [facility]. He did not know what his ejection fraction was but did state he is currently taking Entresto and Coreg for his congestive heart failure. Moreover, patient has been vaccinated against COVID-19 receiving in both doses of the Pfizer vaccine back in . He denied any known sick contacts except for his who had similar symptoms but recovered uneventfully. She was not tested but is vaccinated against COVID-19. Patient has no history of smoking, alcohol or drug abuse. 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 ED Course: Azithromycin IV, Rocephin IV, Decadron IV, albuterol nebulizer Patient awake. Sitting up in chair. Patient still on High flow O2 8 litres and O2 saturation running 97%. ABG on 100% FIO2 ABG pH 7.264 (7.320-7.450) L 03/29/21 20:03 POC ABG pCO2 42.0 mmHg (32.0-48.0) 03/29/21 20:03 POC ABG pO2 51.4 mmHg (83-108) L 03/29/21 20:03 POC ABG HCO3 18.6 03/29/21 20:03 ABG O2 Saturation 78.9 (0-100) 03/29/21 20:03 PT/INR, D-dimer Denies chest pain, shortness of breath or cough at rest. Patient afebrile. Has mild leukocytosis. Blood pressure 132/72, Pulse 94 Chest xray done 03/28/21 reported Stable mild perihilar prominence. No consolidation, pleural effusion or pneumothorax. Patient has Angio CT of chest 03/28/21 reported No evidence of pulmonary thromboembolism . Extensive bilateral pneumonitis, probably viral . Patient presently on I/V solumedrol, S/C Lovenox, Benzonatate, Albuterol inhaler and Budesonide aerosol treatments. Patient finished course of Ceftriaxone, Zithromax Recommend to taper O2 slowly and keep O2 saturation above 92%. Objective Vital Signs - 12hr 04/07/21 04/07/21 11:31 11:59 Pulse Rate [ 90 Bilateral Throughout] Respiratory 20 Rate [Bilateral Throughout] O2 Sat by Pulse 97 Oximetry Constitutional: no acute distress, alert Eyes: non-icteric ENT: oropharynx moist Neck: supple, no lymphadenopathy, no JVD Effort: mildly labored Ascultation: Bilateral: rhonchi Percussion: Bilateral: not dull Cardiovascular: regular rate and rhythm Gastrointestinal: normoactive bowel sounds, soft, non-tender, non-distended (protuberant) Integumentary: normal Extremities: no cyanosis, no edema Neurologic: normal mental status, non-focal exam, pupils equal and round, CN II- XII normal Psychiatric: mood appropriate, affect normal CBC and BMP: 04/06/21 05:03 04/06/21 05:03 ABG, PT/INR, D-dimer: ABG ABG pH 7.455 pH Units (7.350-7.450) H 04/06/21 11:40 POC ABG pCO2 42.0 mmHg (32.0-48.0) 03/29/21 20:03 ABG pCO2 39.3 mm Hg 04/06/21 11:40 POC ABG pO2 51.4 mmHg (83-108) L 03/29/21 20:03 ABG pO2 69.0 mm Hg (80.0-90.0) L 04/06/21 11:40 POC ABG HCO3 18.6 03/29/21 20:03 ABG O2 Saturation 93.7 % (95.0-99.0) L 04/06/21 11:40 PT/INR, D-dimer PT 13.2 Sec. (12.2-14.9) 03/28/21 Unknown INR 0.95 (0.87-1.13) 03/28/21 Unknown D-Dimer 8753.33 ng/mlDDU (0-234) H 04/06/21 05:03 Abnormal lab findings: Abnormal Labs 03/28/21 03/28/21 03/28/21 08:26 09:25 09:25 WBC RDW Plt Count Lymph % (Auto) Swain % (Auto) Lymph # (Auto) Swain # (Auto) Baso # (Auto) Seg Neutrophils % Lymphocytes % (Manual) Seg Neutrophils # Seg Neutrophils # Man Lymphocytes # (Manual) APTT D-Dimer 1100.30 H ABG pH POC ABG pO2 ABG pO2 ABG HCO3 ABG O2 Saturation ABG Hemoglobin ABG Oxyhemoglobin ABG Glucose Oxyhemoglobin Carbon Dioxide BUN Creatinine Glucose 109 H POC Glucose Magnesium 2.40 H Ferritin AST Lactate Dehydrogenase 677 H C-Reactive Protein 13.70 H Albumin Arterial Blood Glucose Arterial Blood Ionized Calcium Ur Specific [place] Coronavirus (PCR) 03/28/21 03/28/21 03/28/21 09:25 Unknown Unknown WBC RDW Plt Count 96 L Lymph % (Auto) 7.2 L Swain % (Auto) 10.8 H Lymph # (Auto) 0.5 L Swain # (Auto) Baso # (Auto) Seg Neutrophils % 81.8 H Lymphocytes % (Manual) Seg Neutrophils # Seg Neutrophils # Man Lymphocytes # (Manual) APTT D-Dimer ABG pH POC ABG pO2 ABG pO2 ABG HCO3 ABG O2 Saturation ABG Hemoglobin ABG Oxyhemoglobin ABG Glucose Oxyhemoglobin Carbon Dioxide BUN Creatinine Glucose POC Glucose Magnesium Ferritin 1340.0 H AST Lactate Dehydrogenase C-Reactive Protein Albumin Arterial Blood Glucose Arterial Blood Ionized Calcium Ur Specific [place] 1.038 H Coronavirus (PCR) 03/28/21 03/28/21 03/28/21 Unknown Unknown Unknown WBC RDW Plt Count Lymph % (Auto) Swain % (Auto) Lymph # (Auto) Swain # (Auto) Baso # (Auto) Seg Neutrophils % Lymphocytes % (Manual) Seg Neutrophils # Seg Neutrophils # Man Lymphocytes # (Manual) APTT 38.7 H D-Dimer ABG pH POC ABG pO2 ABG pO2 ABG HCO3 ABG O2 Saturation ABG Hemoglobin ABG Oxyhemoglobin ABG Glucose Oxyhemoglobin Carbon Dioxide BUN Creatinine Glucose 120 H POC Glucose Magnesium Ferritin AST 73 H Lactate Dehydrogenase C-Reactive Protein Albumin 3.4 L Arterial Blood Glucose Arterial Blood Ionized Calcium Ur Specific [place] Coronavirus (PCR) Positive A 0903/29/21 03/29/21 02:30 02:30 02:30 WBC RDW 15.4 H Plt Count 107 L Lymph % (Auto) 5.6 L Swain % (Auto) 10.0 H Lymph # (Auto) 0.4 L Swain # (Auto) Baso # (Auto) Seg Neutrophils % 84.2 H Lymphocytes % (Manual) Seg Neutrophils # Seg Neutrophils # Man Lymphocytes # (Manual) APTT D-Dimer ABG pH POC ABG pO2 ABG pO2 ABG HCO3 ABG O2 Saturation ABG Hemoglobin ABG Oxyhemoglobin ABG Glucose Oxyhemoglobin Carbon Dioxide BUN Creatinine Glucose 128 H POC Glucose Magnesium 2.60 H Ferritin AST 64 H Lactate Dehydrogenase C-Reactive Protein Albumin 3.1 L Arterial Blood Glucose Arterial Blood Ionized Calcium Ur Specific [place] Coronavirus (PCR) 03/29/21 03/29/21 03/29/21 15:30 19:48 20:03 WBC RDW Plt Count Lymph % (Auto) Swain % (Auto) Lymph # (Auto) Swain # (Auto) Baso # (Auto) Seg Neutrophils % Lymphocytes % (Manual) Seg Neutrophils # Seg Neutrophils # Man Lymphocytes # (Manual) APTT D-Dimer ABG pH 7.264 L POC ABG pO2 51.4 L ABG pO2 ABG HCO3 ABG O2 Saturation ABG Hemoglobin ABG Oxyhemoglobin 77.6 L ABG Glucose 275 H Oxyhemoglobin Carbon Dioxide 21 L BUN Creatinine Glucose 125 H POC Glucose 189 H Magnesium Ferritin AST 64 H Lactate Dehydrogenase C-Reactive Protein Albumin 2.8 L Arterial Blood Glucose 275 H Arterial Blood Ionized Calcium 4.5 L Ur Specific [place] Coronavirus (PCR) 03/30/21 03/31/21 03/31/21 06:07 07:38 07:38 WBC 11.8 H RDW 15.4 H Plt Count Lymph % (Auto) 2.4 L [place] % (Auto) 8.4 H Lymph # (Auto) 0.3 L [place] # (Auto) 1.0 H Baso # (Auto) Seg Neutrophils % 89.0 H Lymphocytes % (Manual) Seg Neutrophils # 10.5 H Seg Neutrophils # Man Lymphocytes # (Manual) APTT D-Dimer > 96735 H ABG pH POC ABG pO2 ABG pO2 ABG HCO3 ABG O2 Saturation ABG Hemoglobin ABG Oxyhemoglobin ABG Glucose Oxyhemoglobin Carbon Dioxide BUN Creatinine Glucose 131 H POC Glucose Magnesium Ferritin AST 49 H Lactate Dehydrogenase C-Reactive Protein Albumin 2.7 L Arterial Blood Glucose Arterial Blood Ionized Calcium Ur Specific [place] Coronavirus (PCR) 03/31/21 03/31/21 04/01/21 07:38 07:38 06:37 WBC RDW Plt Count Lymph % (Auto) Swain % (Auto) Lymph # (Auto) Swain # (Auto) Baso # (Auto) Seg Neutrophils % Lymphocytes % (Manual) Seg Neutrophils # Seg Neutrophils # Man Lymphocytes # (Manual) APTT D-Dimer ABG pH POC ABG pO2 ABG pO2 ABG HCO3 ABG O2 Saturation ABG Hemoglobin ABG Oxyhemoglobin ABG Glucose Oxyhemoglobin Carbon Dioxide BUN Creatinine 0.7 L 0.7 L Glucose 122 H 117 H POC Glucose Magnesium Ferritin 1419.0 H AST 42 H 53 H Lactate Dehydrogenase 752 H C-Reactive Protein 4.40 H Albumin 2.9 L 3.2 L Arterial Blood Glucose Arterial Blood Ionized Calcium Ur Specific [place] Coronavirus (PCR) 04/02/21 04/02/21 04/02/21 05:57 05:57 05:57 WBC 13.6 H RDW 15.7 H Plt Count Lymph % (Auto) 2.3 L [place] % (Auto) 10.5 H Lymph # (Auto) 0.3 L [place] # (Auto) 1.4 H Baso # (Auto) 0.2 H Seg Neutrophils % 86.0 H Lymphocytes % (Manual) Seg Neutrophils # 11.7 H Seg Neutrophils # Man Lymphocytes # (Manual) APTT D-Dimer > 87762 H ABG pH POC ABG pO2 ABG pO2 ABG HCO3 ABG O2 Saturation ABG Hemoglobin ABG Oxyhemoglobin ABG Glucose Oxyhemoglobin Carbon Dioxide BUN 22 H Creatinine 0.7 L Glucose 149 H POC Glucose Magnesium Ferritin AST 42 H Lactate Dehydrogenase 811 H C-Reactive Protein 2.00 H Albumin 3.0 L Arterial Blood Glucose Arterial Blood Ionized Calcium Ur Specific [place] Coronavirus (PCR) 04/02/21 04/02/21 04/03/21 05:57 21:00 05:56 WBC RDW Plt Count Lymph % (Auto) Swain % (Auto) Lymph # (Auto) Swain # (Auto) Baso # (Auto) Seg Neutrophils % Lymphocytes % (Manual) Seg Neutrophils # Seg Neutrophils # Man Lymphocytes # (Manual) APTT D-Dimer > 68939 H ABG pH POC ABG pO2 ABG pO2 ABG HCO3 ABG O2 Saturation ABG Hemoglobin ABG Oxyhemoglobin ABG Glucose Oxyhemoglobin Carbon Dioxide BUN Creatinine Glucose POC Glucose 160 H Magnesium Ferritin 1180.0 H AST Lactate Dehydrogenase C-Reactive Protein Albumin Arterial Blood Glucose Arterial Blood Ionized Calcium Ur Specific [place] Coronavirus (PCR) 04/03/21 04/06/21 04/06/21 05:56 05:03 05:03 WBC 11.7 H RDW 15.6 H Plt Count Lymph % (Auto) Swain % (Auto) Lymph # (Auto) [place]ain # (Auto) Baso # (Auto) Seg Neutrophils % Lymphocytes % (Manual) 1.0 L Seg Neutrophils # Seg Neutrophils # Man 11.2 H Lymphocytes # (Manual) 0.1 L APTT D-Dimer 8753.33 H ABG pH POC ABG pO2 ABG pO2 ABG HCO3 ABG O2 Saturation ABG Hemoglobin ABG Oxyhemoglobin ABG Glucose Oxyhemoglobin Carbon Dioxide BUN Creatinine Glucose POC Glucose Magnesium Ferritin 1117.0 H AST Lactate Dehydrogenase C-Reactive Protein Albumin Arterial Blood Glucose Arterial Blood Ionized Calcium Ur Specific [place] Coronavirus (PCR) 04/06/21 04/06/21 05:03 11:40 WBC RDW Plt Count Lymph % (Auto) Swain % (Auto) Lymph # (Auto) Swain # (Auto) Baso # (Auto) Seg Neutrophils % Lymphocytes % (Manual) Seg Neutrophils # Seg Neutrophils # Man Lymphocytes # (Manual) APTT D-Dimer ABG pH 7.455 H POC ABG pO2 ABG pO2 69.0 L ABG HCO3 27.0 H ABG O2 Saturation 93.7 L ABG Hemoglobin 13.8 L ABG Oxyhemoglobin ABG Glucose Oxyhemoglobin 93.3 L Carbon Dioxide 31 H BUN 22 H Creatinine 0.7 L Glucose 145 H POC Glucose Magnesium Ferritin AST Lactate Dehydrogenase C-Reactive Protein Albumin Arterial Blood Glucose Arterial Blood Ionized Calcium Ur Specific [place] Coronavirus (PCR) Allied health notes reviewed: nursing
[2021-04-07] MEDS: GABAPENTIN 300 MG CAP PO SCH (17:40)
[2021-04-07] MEDS: PRAVASTATIN 40 MG TAB PO SCH (23:04)
[2021-04-08] MEDS: methylPREDNISolone Sod Succinate 125 MG/2 ML INJ IV SCH ×3 (00:05→14:39)
[2021-04-08] MEDS: BENZONATATE 100 MG CAP PO SCH ×3 (05:32→21:58)
--- NOTE | 2021-04-08 08:06 | XRay Report ---
CHEST 1 VIEW 04/08/2021 6:51 AM INDICATION / CLINICAL INFORMATION: Follow up on pulmonary infiltrates.. COMPARISON: 03/31/2021 FINDINGS: SUPPORT DEVICES: None. HEART / MEDIASTINUM: No significant abnormality. LUNGS / PLEURA: Improved aeration with persistent multifocal airspace opacities. No pneumothorax. ADDITIONAL FINDINGS: No significant additional findings. IMPRESSION: 1. Improved aeration with persistence of multifocal airspace opacities. Signer Name: Travon Pedroza DO Signed: 04/08/2021 8:02 AM Workstation Name: [id number]
[2021-04-08] MEDS: ALBUTEROL 2.5 MG/3 ML NEBU IH SCH (08:45)
[2021-04-08] MEDS: BUDESONIDE 0.5 MG/2 ML NEBU IH SCH ×3 (08:45→23:10)
--- NOTE | 2021-04-08 08:58 | Progress Note ---
Assessment and Plan Assessment and plan: 58-year-old male with past medical history of hypertension, congestive heart failure, VT 18 years ago presenting for complaint of shortness of breath of onset last Friday. Patient states that over the course the last 2 days his symptoms progressively worsened. He had associated symptoms of fever, dry cough, poor p.o. intake, diarrhea and generalized weakness. Ongoing evaluation and treatment for covid pneumonia Acute hypoxic respiratory failure COVID-19 pneumonia Sepsis. Present on admission. Patient met criteria given the fever, tachycardia and diagnosis of pneumonia. Transaminitis. Etiology secondary to sepsis. Chronic CHF. Hypertension. Hyperlipidemia. History of rheumatoid arthritis. Peripheral neuropathy. Hospital Course: 03/29/2021: Cardiology evaluated patient due to 5 beats NSVT. Increased coreg, continue entresto. Patient follows with Dr Martinez. ID evaluated patient, Remdesivir started. Will continue supportive care. 03/30/2021: Respiratory distress overnight. LIkely an allergic reaction to remdesivir. Remdesivir has since been discontinued. Was on BIPAP on encounter and has since been dropped to 15 l/min salter nc. Continue supportive management. Will order inflammatory markers. 03/31/2021: Remains on salter nc 15l /min. sats 88-90% but in no distress. Continue supporitve management. Increased steroids to 60 q6hr. Obtained Pu lmonology consult. CXR ordered, will follow. 04/01/2021: Remains on salter nc 12l /min. sats 88-90% but in no distress. Titrate down O2 requirements, ok with sats > 88%. Continue supporitve management . Lasix 20 mg IV x 1 ordered. 04/02/2021: Remains on salter nc 12l /min. Able to ambulate without any distress but does desaturate to 78%. Sats 88-90% when resting. Titrate down O2 requirements, ok with sats > 88%. Lasix 40 mg IV twice daily x 2 doses ordered. Continue supportive management 04/03/2021. Remains on salter nc but decreased from 12l /min to 8 L/min. Titrate down O2 requirements, ok with sats > 88%. Continue Lasix as needed 04/04/2021. Patient's oxygen was decreased to 10 L/min but was noted to have desaturation into the 70s. Therefore, patient was placed on 15 L with nonrebre ather. Continue prone positioning as able. Patient has significantly elevated D- dimer. However, Doppler studies and CTA of chest were negative. Continue to trend D-dimer along with other inflammatory markers. Prognosis is guarded 04/05/2021. Patient sitting up in a chair and states that he feels comfortable. Patient previously on nonrebreather plus Salter nasal cannula 15 L FiO2 100% which has now been weaned to 8 L. Continue prone positioning as possible. Repeat D-dimer on 04/03 was still greater than 10,000 but CTA of chest and Doppler studies of lower extremities were negative. Recheck D-dimer in a.m. 04/06/2021. D-dimer is slightly decreased to ~8700. Patient remains on salter nasal cannula 8 L/min. Continue prone positioning as possible. Continue to trend inflammatory markers. 04/07/2021. Patient remains on salter nasal cannula 8 L/min. Continue prone positioning as possible. Continue to trend inflammatory markers. PT/OT. Exercise pulse oximetry testing at discharge. 04/08/2021. Patient remains on salter nasal cannula increased to 10 L/min. Continue prone positioning as possible. Continue to trend inflammatory markers. Continue IV Solu-Medrol per pulmonary recommendations. BG is stable. History Interval history: No new issues overnight Hospitalist Physical - Constitutional Vitals: Temp Pulse Resp BP Pulse Ox 98.0 F 90 20 118/69 93 04/08/21 05:18 04/08/21 08:45 04/08/21 08:45 04/08/21 05:18 04/08/21 08:44 General appearance: Present: no acute distress - EENT Eyes: Present: PERRL, EOM intact ENT: hearing intact, clear oral mucosa, dentition normal - Neck Neck: Present: supple, normal ROM - Respiratory Respiratory effort: normal Respiratory: bilateral: CTA - Cardiovascular Rhythm: regular Heart Sounds: Present: S1 & S2. Absent: gallop, rub - Extremities Extremities: no ischemia, No edema, Full ROM - Abdominal General gastrointestinal: soft, non-tender, non-distended, normal bowel sounds - Integumentary Integumentary: Present: clear, warm, dry - Neurologic Neurologic: CNII-XII intact, moves all extremities HEART Score - HEART Score Troponin: Troponin T 0.013 ng/mL (0.00-0.029) 03/28/21 Unknown Results - Labs CBC & Chem 7: 04/06/21 05:03 04/06/21 05:03 Labs: Laboratory Last Values WBC 11.7 K/mm3 (4.5-11.0) H 04/06/21 05:03 RBC 4.04 M/mm3 (3.65-5.03) 04/06/21 05:03 Hgb 12.3 gm/dl (11.8-15.2) 04/06/21 05:03 Hct 36.4 % (35.5-45.6) 04/06/21 05:03 MCV 90 fl (84-94) 04/06/21 05:03 MCH 31 pg (28-32) 04/06/21 05:03 MCHC 34 % (32-34) 04/06/21 05:03 RDW 15.6 % (13.2-15.2) H 04/06/21 05:03 Plt Count 184 K/mm3 (140-440) 04/06/21 05:03 Lymph % (Auto) 2.3 % (13.4-35.0) L 04/02/21 05:57 [place] % (Auto) 10.5 % (0.0-7.3) H 04/02/21 05:57 Eos % (Auto) 0.0 % (0.0-4.3) 04/02/21 05:57 Baso % (Auto) 1.2 % (0.0-1.8) 04/02/21 05:57 Lymph # (Auto) 0.3 K/mm3 (1.2-5.4) L 04/02/21 05:57 [place] # (Auto) 1.4 K/mm3 (0.0-0.8) H 04/02/21 05:57 Eos # (Auto) 0.0 K/mm3 (0.0-0.4) 04/02/21 05:57 Baso # (Auto) 0.2 K/mm3 (0.0-0.1) H 04/02/21 05:57 Add Manual Diff Complete 04/06/21 05:03 Total Counted 100 04/06/21 05:03 Seg Neutrophils % Heat Treating Bluer 04/06/21 05:03 Band Neutrophils % 1.0 % 04/06/21 05:03 Lymphocytes % (Manual) 1.0 % (13.4-35.0) L 04/06/21 05:03 Monocytes % (Manual) 2.0 % (0.0-7.3) 04/06/21 05:03 Nucleated RBC % Not Reportable 04/06/21 05:03 Seg Neutrophils # 11.7 K/mm3 (1.8-7.7) H 04/02/21 05:57 Seg Neutrophils # Man 11.2 K/mm3 (1.8-7.7) H 04/06/21 05:03 Band Neutrophils # 0.1 K/mm3 04/06/21 05:03 Lymphocytes # (Manual) 0.1 K/mm3 (1.2-5.4) L 04/06/21 05:03 Abs React Lymphs (Man) 0.0 K/mm3 04/06/21 05:03 Monocytes # (Manual) 0.2 K/mm3 (0.0-0.8) 04/06/21 05:03 Eosinophils # (Manual) 0.0 K/mm3 (0.0-0.4) 04/06/21 05:03 Basophils # (Manual) 0.0 K/mm3 (0.0-0.1) 04/06/21 05:03 Metamyelocytes # 0.0 K/mm3 04/06/21 05:03 Myelocytes # 0.0 K/mm3 04/06/21 05:03 Promyelocytes # 0.0 K/mm3 04/06/21 05:03 Blast Cells # 0.0 K/mm3 04/06/21 05:03 WBC Morphology Not Reportable 04/06/21 05:03 Hypersegmented Neuts Not Reportable 04/06/21 05:03 Hyposegmented Neuts Not Reportable 04/06/21 05:03 Hypogranular Neuts Not Reportable 04/06/21 05:03 Smudge Cells Not Reportable 04/06/21 05:03 Toxic Granulation Not Reportable 04/06/21 05:03 Toxic Vacuolation Not Reportable 04/06/21 05:03 Dohle Bodies Not Reportable 04/06/21 05:03 Pelger-Huet Anomaly Not Reportable 04/06/21 05:03 Adan Rods Not Reportable 04/06/21 05:03 Platelet Estimate Consistent w auto 04/06/21 05:03 Clumped Platelets Not Reportable 04/06/21 05:03 Plt Clumps, EDTA Not Reportable 04/06/21 05:03 Large Platelets Not Reportable 04/06/21 05:03 Giant Platelets Not Reportable 04/06/21 05:03 Platelet Satelliting Not Reportable 04/06/21 05:03 Plt Morphology Comment Not Reportable 04/06/21 05:03 RBC Morphology Not Reportable 04/06/21 05:03 Dimorphic RBCs Not Reportable 04/06/21 05:03 Polychromasia Not Reportable 04/06/21 05:03 Hypochromasia Not Reportable 04/06/21 05:03 Poikilocytosis 1+ 04/06/21 05:03 Anisocytosis Not Reportable 04/06/21 05:03 Microcytosis Not Reportable 04/06/21 05:03 Macrocytosis Not Reportable 04/06/21 05:03 Spherocytes Not Reportable 04/06/21 05:03 Pappenheimer Bodies Not Reportable 04/06/21 05:03 Sickle Cells Not Reportable 04/06/21 05:03 Target Cells Not Reportable 04/06/21 05:03 Tear Drop Cells Not Reportable 04/06/21 05:03 Ovalocytes Not Reportable 04/06/21 05:03 Helmet Cells Not Reportable 04/06/21 05:03 [place] Bodies Not Reportable 04/06/21 05:03 [place] Rings Not Reportable 04/06/21 05:03 [place] Cells Not Reportable 04/06/21 05:03 Bite Cells Not Reportable 04/06/21 05:03 Crenated Cell Not Reportable 04/06/21 05:03 Elliptocytes Not Reportable 04/06/21 05:03 Acanthocytes (Spur) Not Reportable 04/06/21 05:03 Rouleaux Not Reportable 04/06/21 05:03 Hemoglobin C Crystals Not Reportable 04/06/21 05:03 Schistocytes Not Reportable 04/06/21 05:03 Malaria parasites Not Reportable 04/06/21 05:03 Luke Bodies Not Reportable 04/06/21 05:03 Hem Pathologist Commnt No 04/06/21 05:03 PT 13.2 Sec. (12.2-14.9) 03/28/21 Unknown INR 0.95 (0.87-1.13) 03/28/21 Unknown APTT 38.7 Sec. (24.2-36.6) H 03/28/21 Unknown D-Dimer 8753.33 ng/mlDDU (0-234) H 04/06/21 05:03 ABG pH 7.455 pH Units (7.350-7.450) H 04/06/21 11:40 POC ABG pCO2 42.0 mmHg (32.0-48.0) 03/29/21 20:03 ABG pCO2 39.3 mm Hg 04/06/21 11:40 POC ABG pO2 51.4 mmHg (83-108) L 03/29/21 20:03 ABG pO2 69.0 mm Hg (80.0-90.0) L 04/06/21 11:40 POC ABG HCO3 18.6 03/29/21 20:03 ABG HCO3 27.0 mmol/L (20.0-26.0) H 04/06/21 11:40 ABG O2 Saturation 93.7 % (95.0-99.0) L 04/06/21 11:40 ABG O2 Content 18.1 (0.0-44) 04/06/21 11:40 POC ABG Base Excess -8.0 03/29/21 20:03 ABG Base Excess 3.0 mmol/L (-2.0-3.0) 04/06/21 11:40 ABG Hemoglobin 13.8 gm/dl (14.0-18.0) L 04/06/21 11:40 ABG Oxyhemoglobin 77.6 (94-98) L 03/29/21 20:03 ABG Carboxyhemoglobin 0.4 % (0.0-5.0) 04/06/21 11:40 ABG Methemoglobin Not Reportable 04/06/21 11:40 ABG Sodium 136.8 mmol/L (136.0-145.0) 03/29/21 20:03 ABG Potassium 4.0 mmol/L (3.40-4.50) 03/29/21 20:03 ABG Chloride 104.0 mmol/L (98-107) 03/29/21 20:03 ABG Glucose 275 mg/dL (65-95) H 03/29/21 20:03 Oxyhemoglobin 93.3 % (95.0-99.0) L 04/06/21 11:40 Carboxyhemoglobin 1.5 (0.5-1.5) 03/29/21 20:03 FiO2 21 % 04/06/21 11:40 FiO2 % 100.0 03/29/21 20:03 Sodium 138 mmol/L (137-145) 04/06/21 05:03 Potassium 4.1 mmol/L (3.6-5.0) 04/06/21 05:03 Chloride 103.1 mmol/L (98-107) 04/06/21 05:03 Carbon Dioxide 31 mmol/L (22-30) H 04/06/21 05:03 Anion Gap 8 mmol/L 04/06/21 05:03 BUN 22 mg/dL (9-20) H 04/06/21 05:03 Creatinine 0.7 mg/dL (0.8-1.3) L 04/06/21 05:03 Estimated GFR > 60 ml/min 04/06/21 05:03 BUN/Creatinine Ratio 31 % 04/06/21 05:03 Glucose 145 mg/dL (75-100) H 04/06/21 05:03 POC Glucose 160 mg/dL (70-105) H 04/02/21 21:00 Lactic Acid 1.60 mmol/L (0.7-2.0) 03/28/21 Unknown Calcium 8.6 mg/dL (8.4-10.2) 04/06/21 05:03 Magnesium 2.60 mg/dL (1.7-2.3) H 03/29/21 02:30 Ferritin 1117.0 ng/mL (30.0-300.0) H 04/03/21 05:56 Total Bilirubin 0.90 mg/dL (0.1-1.2) 04/02/21 05:57 AST 42 units/L (5-40) H 04/02/21 05:57 ALT 32 units/L (7-56) 04/02/21 05:57 Alkaline Phosphatase 85 units/L (35-129) 04/02/21 05:57 Lactate Dehydrogenase 811 units/L (91-180) H 04/02/21 05:57 Troponin T 0.013 ng/mL (0.00-0.029) 03/28/21 Unknown C-Reactive Protein 1.20 mg/dL (0.00-1.30) 04/03/21 05:56 Total Protein 6.6 g/dL (6.3-8.2) 04/02/21 05:57 Albumin 3.0 g/dL (3.9-5) L 04/02/21 05:57 Albumin/Globulin Ratio 0.8 % 04/02/21 05:57 Procalcitonin 0.37 ng/mL (<0.15) 03/28/21 09:25 Arterial Blood Glucose 275 mg/dL (65-95) H 03/29/21 20:03 Arterial Blood Ionized Calcium 4.5 mg/dL (4.6-5.3) L 03/29/21 20:03 Urine Color [place] (Yellow) 03/28/21 Unknown Urine Turbidity Clear (Clear) 03/28/21 Unknown Urine pH 5.0 (5.0-7.0) 03/28/21 Unknown Ur Specific [place] 1.038 (1.003-1.030) H 03/28/21 Unknown Urine Protein >500 mg/dL (Negative) 03/28/21 Unknown Urine Glucose (UA) 50 mg/dL (Negative) 03/28/21 Unknown Urine Ketones Tr mg/dL (Negative) 03/28/21 Unknown Urine Blood Mod (Negative) 03/28/21 Unknown Urine Nitrite Neg (Negative) 03/28/21 Unknown Urine Bilirubin Neg (Negative) 03/28/21 Unknown Urine Urobilinogen 2.0 mg/dL (<2.0) 03/28/21 Unknown Ur Leukocyte Esterase Neg (Negative) 03/28/21 Unknown Urine WBC (Auto) 6.0 /HPF (0.0-6.0) 03/28/21 Unknown Urine RBC (Auto) 2.0 /HPF (0.0-6.0) 03/28/21 Unknown U Epithel Cells (Auto) < 1.0 /HPF (0-13.0) 03/28/21 Unknown Urine Mucus Few /HPF 03/28/21 Unknown Coronavirus (PCR) Positive (Negative) A 03/28/21 Unknown [place]/IV: Voiding Method Toilet Active Medications - Current Medications Current Medications: Generic Name Dose Route Start Last Admin Trade Name Freq PRN Reason Stop Dose Admin Acetaminophen 650 mg 03/28/21 12:45 Acetaminophen 325 Mg Tab PO Q4H PRN Pain MILD(1-3)/Fever >100.5/MIRANDA Albuterol 2.5 mg 03/29/21 08:00 04/07/21 23:10 Albuterol 2.5 Mg/3 Ml Nebu IH Not Given TIDRT [facility] Aspirin 81 mg 03/29/21 10:00 04/07/21 10:18 Aspirin 81 Mg Tab Chew PO 81 mg QDAY LISSETTE Administration Benzonatate 100 mg 03/29/21 07:00 04/08/21 05:32 Benzonatate 100 Mg Cap PO 100 mg Q8HR LISSETTE Administration Budesonide 0.5 mg 03/28/21 14:00 04/07/21 23:10 Budesonide 0.5 Mg/2 Ml Nebu IH Not Given BID [facility] Carvedilol 25 mg 03/29/21 10:00 04/07/21 23:04 Carvedilol 25 Mg Tab PO 25 mg Q12HR LISSETTE Administration Enoxaparin Sodium 40 mg 03/28/21 14:00 04/07/21 10:19 Enoxaparin 40 Mg/0.4 Ml Inj SUB-Q 40 mg DAILY LISSETTE Administration Protocol Gabapentin 300 mg 03/29/21 18:00 04/07/21 17:40 Gabapentin 300 Mg Cap PO 300 mg QPM LISSETTE Administration Labetalol HCl 10 mg 03/28/21 15:34 Labetalol 20 Mg/4 Ml Inj IV Q6HR PRN sbp > 160, hold for hr < 70 Methylprednisolone Sodium Succinate 60 mg 03/31/21 18:00 04/08/21 05:32 Methylprednisolone Sod Succinate 125 Mg/2 Ml Inj IV 04/08/21 14:00 60 mg Q6HR LISSETTE Administration Miscellaneous Medication 20 mg 03/29/21 10:00 Leflunomide PO DAILY [facility] Ondansetron HCl 4 mg 03/28/21 12:45 Ondansetron 4 Mg/2 Ml Inj IV Q8H PRN Nausea And Vomiting Oxycodone/Acetaminophen 1 tab 03/28/21 12:45 04/01/21 10:36 Oxycodone /Acetaminophen 5-325mg Tab PO 1 tab Q6H PRN Administration Pain, Moderate (4-6) Pravastatin Sodium 40 mg 03/29/21 22:00 04/07/21 23:04 Pravastatin 40 Mg Tab PO 40 mg QHS LISSETTE Administration Sodium Chloride 10 ml 03/28/21 22:00 04/08/21 00:05 Sodium Chloride 0.9% 10 Ml Flush Syringe IV 10 ml BID LISSETTE Administration Sodium Chloride 10 ml 03/28/21 12:45 Sodium Chloride 0.9% 10 Ml Flush Syringe IV PRN PRN LINE FLUSH Nutrition/Malnutrition Assess - Dietary Evaluation Nutrition/Malnutrition Findings: Nutrition Notes Start: 03/29/21 14:40 Freq: Status: Active Protocol: Document 04/03/21 14:34 GB (Rec: 04/03/21 14:41 GB [id number]) Nutrition Notes Initial or Follow up Reassessment Current Diagnosis Hypertension,Heart Failure Other Pertinent Diagnosis SOB Current Diet cardiac Labs/Tests 04/02: BUN 22, creatinine 0.7, glucose 149, AST 42 Pertinent Medications reviewed Height 5 ft 5 in Weight 86.6 kg [place] Body Weight (kg) 61.81 BMI 31.7 Weight change and time frame +7 kg from admit. +8% gain. Weight Status Obese Subjective/Other Information PO intake of meals recorded at 75% or greater and independent with meals. Percent of energy/protein needs met: PO intake of 75% or greater of meals TID daily will meet 90% or greater of estimated energy needs. Burn Absent Trauma Absent GI Symptoms None Food Allergy No Skin Integrity/Comment no reported skin complications Current % PO Good (75-100%) Minimum of two criteria No #1 Nutrition Diagnosis Predicted suboptimal energy intake Comments: depending on duration and complications of possible covid and treatments 04/03: PO intake of meals recorded at 75% or greater Etiology SOB As Evidenced by Signs and Symptoms reported decreased PO r/t decreased appetite Diagnosis Progress(for reassessment Improved documentation) Is patient on ventilator? No Is Patient Ambulatory and/or Out of Bed Yes REE-([place] or-ambulatory/OOB) [ [id number]] Kcal/Kg value to use for calculation 22 Approximate Energy Requirements Using 1905 kcal/Kg Calculation Used for Recommendations Kcal/kg Additional Notes Protein: 0.8-1 g/kg @83k- 83g Fluids: 1 ml/kcal or per Nutrition Intervention Change Diet Order: continue Nutrition Support: n/a Add Supplement/Snack (indicate name/kcal n/a /protein ) Goal #1 PO intake of meals to be 50% or greater TID daily for LOS 04/03: met - 75% or greater, continues Goal #2 Weight to maintain within +/-3 % current weight for LOS 04/03: +8% gain, not met, continues: weight change could be resulted from medication regime Follow-Up By: 04/10/21 Additional Comments nursing staff to monitor and record PO intake of meals daily - continues
[2021-04-08] MEDS: ASPIRIN 81 MG TAB CHEW PO SCH (09:36)
[2021-04-08] MEDS: ENOXAPARIN 40 MG/0.4 ML INJ SUB-Q SCH (09:36)
[2021-04-08] MEDS: carvediloL 25 MG TAB PO SCH ×2 (09:36→21:59)
[2021-04-08] MEDS: SACUBITRIL/VALSARTAN 49-51 MG TAB PO SCH ×2 (09:36→21:58)
[2021-04-08] MEDS ORDERED: ALBUTEROL 2.5 MG/3 ML NEBU IH PRN (11:23)
--- NOTE | 2021-04-08 14:49 | Progress Note ---
Assessment and Plan Acute hypoxemic respiratory failure COVID-19 virus infection Pneumonia due to COVID-19 virus CAD (coronary artery disease) HFrEF (heart failure with reduced ejection fraction) HTN - continue to wean supplemental oxygen for target O2 sat's > 90% acutely - improving but slowly, continue care as below; - aspiration precautions - bronchodilators with pulmonary hygiene per RT - prn diuresis - avoid nephrotoxins, renally dose all medications - continue to avoid benzodiazepine's, reduce the possibility of delirium - s/p AB's per ID rec's (rocephin & Zithromax) - prn analgesia per pain score - Maintenance of sleep-wake cycle, avoid delirium - G.I. & VTE prophylaxis - PT/OT/ROM exercises - continue mobility protocols for pressure ulcer prophylaxis - Monitor hemodynamics closely - continue other care per attending / other consultants - discharge planning ongoing concurrently COVID SPECIFIC INTERVENTIONS - Remdesivir as per ID/Pulmonary developed protocols (Received) - continue systemic steroids for severe COVID-19 infection empirically (Solumedrol) - follow repeat COVID tests results - zinc and vitamin C supplementation - Monitor inflammatory markers per facility protocol - ferritin, Ddimer, CRP - therapeutic anticoagulation per system Protocol based on d-dimer and clinical considerations (VTE prophylaxis) - Continue contact and airborne isolation .... Re-evaluate in am & prn I have spent ( >35 ) minutes with the patient w/ >50% of the time spent counse ling and/or coordinating care for this patient. Counseling topics and/or how time was spent coordinating patient's care is outlined in the impression and plan above. Subjective Date of service: 04/08/21 Principal diagnosis: Acute hypoxemic resp failure; COVID-19 infxn; Pneumonia; CAD; HFrEF; HTN Interval history: Patient is seen today for: Acute hypoxemic respiratory failure; COVID-19 virus infection; Pneumonia due to COVID-19 virus; CAD; HFrEF; HTN Seen and examined at bedside; 24hour events reviewed; nursing and respiratory care staff consulted; no adverse overnight events reported to me; resting in bed; feels and looks better; no emesis or overt aspiration; denies chest pain or fevers; remains on salter HFNC at 15L flow Objective Vital Signs - 12hr 04/08/21 04/08/21 04/08/21 05:18 07:30 08:44 Temperature 98.0 F Pulse Rate 77 Pulse Rate [ Bilateral Throughout] Respiratory 18 Rate Respiratory Rate [Bilateral Throughout] Blood Pressure 118/69 O2 Sat by Pulse 97 96 93 Oximetry 04/08/21 04/08/21 08:45 11:34 Temperature 97.7 F Pulse Rate 85 Pulse Rate [ 90 Bilateral Throughout] Respiratory 22 Rate Respiratory 20 Rate [Bilateral Throughout] Blood Pressure 104/57 O2 Sat by Pulse 93 94 Oximetry Constitutional: no acute distress, alert, other (elderly male with mildly increased respiratory effort at rest) Eyes: non-icteric ENT: oropharynx moist Neck: supple, no lymphadenopathy, no JVD Effort: mildly labored Ascultation: Bilateral: rhonchi Percussion: Bilateral: not dull Cardiovascular: regular rate and rhythm Gastrointestinal: normoactive bowel sounds, soft, non-tender, non-distended (protuberant) Integumentary: normal Extremities: no cyanosis, no edema Neurologic: normal mental status, non-focal exam, pupils equal and round, CN II- XII normal Psychiatric: mood appropriate, affect normal CBC and BMP: 04/13/21 06:54 04/13/21 06:54 ABG, PT/INR, D-dimer: ABG ABG pH 7.455 pH Units (7.350-7.450) H 04/06/21 11:40 POC ABG pCO2 42.0 mmHg (32.0-48.0) 03/29/21 20:03 ABG pCO2 39.3 mm Hg 04/06/21 11:40 POC ABG pO2 51.4 mmHg (83-108) L 03/29/21 20:03 ABG pO2 69.0 mm Hg (80.0-90.0) L 04/06/21 11:40 POC ABG HCO3 18.6 03/29/21 20:03 ABG O2 Saturation 93.7 % (95.0-99.0) L 04/06/21 11:40 PT/INR, D-dimer PT 13.2 Sec. (12.2-14.9) 03/28/21 Unknown INR 0.95 (0.87-1.13) 03/28/21 Unknown D-Dimer 8753.33 ng/mlDDU (0-234) H 04/06/21 05:03 Abnormal lab findings: Abnormal Labs 0903/28/21 03/28/21 08:26 09:25 09:25 WBC RDW Plt Count Lymph % (Auto) [place] % (Auto) Lymph # (Auto) [place] # (Auto) Baso # (Auto) Seg Neutrophils % Lymphocytes % (Manual) Seg Neutrophils # Seg Neutrophils # Man Lymphocytes # (Manual) APTT D-Dimer 1100.30 H ABG pH POC ABG pO2 ABG pO2 ABG HCO3 ABG O2 Saturation ABG Hemoglobin ABG Oxyhemoglobin ABG Glucose Oxyhemoglobin Carbon Dioxide BUN Creatinine Glucose 109 H POC Glucose Magnesium 2.40 H Ferritin AST Lactate Dehydrogenase 677 H C-Reactive Protein 13.70 H Albumin Arterial Blood Glucose Arterial Blood Ionized Calcium Ur Specific [place] Coronavirus (PCR) 03/28/21 03/28/21 03/28/21 09:25 Unknown Unknown WBC RDW Plt Count 96 L Lymph % (Auto) 7.2 L [place] % (Auto) 10.8 H Lymph # (Auto) 0.5 L [place] # (Auto) Baso # (Auto) Seg Neutrophils % 81.8 H Lymphocytes % (Manual) Seg Neutrophils # Seg Neutrophils # Man Lymphocytes # (Manual) APTT D-Dimer ABG pH POC ABG pO2 ABG pO2 ABG HCO3 ABG O2 Saturation ABG Hemoglobin ABG Oxyhemoglobin ABG Glucose Oxyhemoglobin Carbon Dioxide BUN Creatinine Glucose POC Glucose Magnesium Ferritin 1340.0 H AST Lactate Dehydrogenase C-Reactive Protein Albumin Arterial Blood Glucose Arterial Blood Ionized Calcium Ur Specific [place] 1.038 H Coronavirus (PCR) 03/28/21 03/28/21 03/28/21 Unknown Unknown Unknown WBC RDW Plt Count Lymph % (Auto) [place] % (Auto) Lymph # (Auto) [place] # (Auto) Baso # (Auto) Seg Neutrophils % Lymphocytes % (Manual) Seg Neutrophils # Seg Neutrophils # Man Lymphocytes # (Manual) APTT 38.7 H D-Dimer ABG pH POC ABG pO2 ABG pO2 ABG HCO3 ABG O2 Saturation ABG Hemoglobin ABG Oxyhemoglobin ABG Glucose Oxyhemoglobin Carbon Dioxide BUN Creatinine Glucose 120 H POC Glucose Magnesium Ferritin AST 73 H Lactate Dehydrogenase C-Reactive Protein Albumin 3.4 L Arterial Blood Glucose Arterial Blood Ionized Calcium Ur Specific [place] Coronavirus (PCR) Positive A 03/29/21 03/29/21 03/29/21 02:30 02:30 02:30 WBC RDW 15.4 H Plt Count 107 L Lymph % (Auto) 5.6 L [place] % (Auto) 10.0 H Lymph # (Auto) 0.4 L [place] # (Auto) Baso # (Auto) Seg Neutrophils % 84.2 H Lymphocytes % (Manual) Seg Neutrophils # Seg Neutrophils # Man Lymphocytes # (Manual) APTT D-Dimer ABG pH POC ABG pO2 ABG pO2 ABG HCO3 ABG O2 Saturation ABG Hemoglobin ABG Oxyhemoglobin ABG Glucose Oxyhemoglobin Carbon Dioxide BUN Creatinine Glucose 128 H POC Glucose Magnesium 2.60 H Ferritin AST 64 H Lactate Dehydrogenase C-Reactive Protein Albumin 3.1 L Arterial Blood Glucose Arterial Blood Ionized Calcium Ur Specific [place] Coronavirus (PCR) 03/29/21 03/29/21 03/29/21 15:30 19:48 20:03 WBC RDW Plt Count Lymph % (Auto) [place] % (Auto) Lymph # (Auto) [place] # (Auto) Baso # (Auto) Seg Neutrophils % Lymphocytes % (Manual) Seg Neutrophils # Seg Neutrophils # Man Lymphocytes # (Manual) APTT D-Dimer ABG pH 7.264 L POC ABG pO2 51.4 L ABG pO2 ABG HCO3 ABG O2 Saturation ABG Hemoglobin ABG Oxyhemoglobin 77.6 L ABG Glucose 275 H Oxyhemoglobin Carbon Dioxide 21 L BUN Creatinine Glucose 125 H POC Glucose 189 H Magnesium Ferritin AST 64 H Lactate Dehydrogenase C-Reactive Protein Albumin 2.8 L Arterial Blood Glucose 275 H Arterial Blood Ionized Calcium 4.5 L Ur Specific [place] Coronavirus (PCR) 03/30/21 03/31/21 03/31/21 06:07 07:38 07:38 WBC 11.8 H RDW 15.4 H Plt Count Lymph % (Auto) 2.4 L [place] % (Auto) 8.4 H Lymph # (Auto) 0.3 L [place] # (Auto) 1.0 H Baso # (Auto) Seg Neutrophils % 89.0 H Lymphocytes % (Manual) Seg Neutrophils # 10.5 H Seg Neutrophils # Man Lymphocytes # (Manual) APTT D-Dimer > 74720 H ABG pH POC ABG pO2 ABG pO2 ABG HCO3 ABG O2 Saturation ABG Hemoglobin ABG Oxyhemoglobin ABG Glucose Oxyhemoglobin Carbon Dioxide BUN Creatinine Glucose 131 H POC Glucose Magnesium Ferritin AST 49 H Lactate Dehydrogenase C-Reactive Protein Albumin 2.7 L Arterial Blood Glucose Arterial Blood Ionized Calcium Ur Specific [place] Coronavirus (PCR) 03/31/21 03/31/21 04/01/21 07:38 07:38 06:37 WBC RDW Plt Count Lymph % (Auto) [place] % (Auto) Lymph # (Auto) [place] # (Auto) Baso # (Auto) Seg Neutrophils % Lymphocytes % (Manual) Seg Neutrophils # Seg Neutrophils # Man Lymphocytes # (Manual) APTT D-Dimer ABG pH POC ABG pO2 ABG pO2 ABG HCO3 ABG O2 Saturation ABG Hemoglobin ABG Oxyhemoglobin ABG Glucose Oxyhemoglobin Carbon Dioxide BUN Creatinine 0.7 L 0.7 L Glucose 122 H 117 H POC Glucose Magnesium Ferritin 1419.0 H AST 42 H 53 H Lactate Dehydrogenase 752 H C-Reactive Protein 4.40 H Albumin 2.9 L 3.2 L Arterial Blood Glucose Arterial Blood Ionized Calcium Ur Specific [place] Coronavirus (PCR) 04/02/21 04/02/21 04/02/21 05:57 05:57 05:57 WBC 13.6 H RDW 15.7 H Plt Count Lymph % (Auto) 2.3 L [place] % (Auto) 10.5 H Lymph # (Auto) 0.3 L [place] # (Auto) 1.4 H Baso # (Auto) 0.2 H Seg Neutrophils % 86.0 H Lymphocytes % (Manual) Seg Neutrophils # 11.7 H Seg Neutrophils # Man Lymphocytes # (Manual) APTT D-Dimer > 01389 H ABG pH POC ABG pO2 ABG pO2 ABG HCO3 ABG O2 Saturation ABG Hemoglobin ABG Oxyhemoglobin ABG Glucose Oxyhemoglobin Carbon Dioxide BUN 22 H Creatinine 0.7 L Glucose 149 H POC Glucose Magnesium Ferritin AST 42 H Lactate Dehydrogenase 811 H C-Reactive Protein 2.00 H Albumin 3.0 L Arterial Blood Glucose Arterial Blood Ionized Calcium Ur Specific [place] Coronavirus (PCR) 04/02/21 04/02/21 04/03/21 05:57 21:00 05:56 WBC RDW Plt Count Lymph % (Auto) [place] % (Auto) Lymph # (Auto) [place] # (Auto) Baso # (Auto) Seg Neutrophils % Lymphocytes % (Manual) Seg Neutrophils # Seg Neutrophils # Man Lymphocytes # (Manual) APTT D-Dimer > 71299 H ABG pH POC ABG pO2 ABG pO2 ABG HCO3 ABG O2 Saturation ABG Hemoglobin ABG Oxyhemoglobin ABG Glucose Oxyhemoglobin Carbon Dioxide BUN Creatinine Glucose POC Glucose 160 H Magnesium Ferritin 1180.0 H AST Lactate Dehydrogenase C-Reactive Protein Albumin Arterial Blood Glucose Arterial Blood Ionized Calcium Ur Specific [place] Coronavirus (PCR) 04/03/21 04/06/21 04/06/21 05:56 05:03 05:03 WBC 11.7 H RDW 15.6 H Plt Count Lymph % (Auto) [place] % (Auto) Lymph # (Auto) [place] # (Auto) Baso # (Auto) Seg Neutrophils % Lymphocytes % (Manual) 1.0 L Seg Neutrophils # Seg Neutrophils # Man 11.2 H Lymphocytes # (Manual) 0.1 L APTT D-Dimer 8753.33 H ABG pH POC ABG pO2 ABG pO2 ABG HCO3 ABG O2 Saturation ABG Hemoglobin ABG Oxyhemoglobin ABG Glucose Oxyhemoglobin Carbon Dioxide BUN Creatinine Glucose POC Glucose Magnesium Ferritin 1117.0 H AST Lactate Dehydrogenase C-Reactive Protein Albumin Arterial Blood Glucose Arterial Blood Ionized Calcium Ur Specific [place] Coronavirus (PCR) 04/06/21 04/06/21 05:03 11:40 WBC RDW Plt Count Lymph % (Auto) [place] % (Auto) Lymph # (Auto) [place] # (Auto) Baso # (Auto) Seg Neutrophils % Lymphocytes % (Manual) Seg Neutrophils # Seg Neutrophils # Man Lymphocytes # (Manual) APTT D-Dimer ABG pH 7.455 H POC ABG pO2 ABG pO2 69.0 L ABG HCO3 27.0 H ABG O2 Saturation 93.7 L ABG Hemoglobin 13.8 L ABG Oxyhemoglobin ABG Glucose Oxyhemoglobin 93.3 L Carbon Dioxide 31 H BUN 22 H Creatinine 0.7 L Glucose 145 H POC Glucose Magnesium Ferritin AST Lactate Dehydrogenase C-Reactive Protein Albumin Arterial Blood Glucose Arterial Blood Ionized Calcium Ur Specific [place] Coronavirus (PCR) Chest x-ray: pending Allied health notes reviewed: nursing
[2021-04-08] MEDS: GABAPENTIN 300 MG CAP PO SCH (18:05)
[2021-04-08] MEDS: PRAVASTATIN 40 MG TAB PO SCH (21:59)
[2021-04-08] MEDS: ARFORMOTEROL 15 MCG/2 ML NEBU IH SCH (23:10)
[2021-04-09] MEDS: BENZONATATE 100 MG CAP PO SCH ×3 (05:24→22:49)
--- NOTE | 2021-04-09 08:07 | Progress Note ---
Assessment and Plan Assessment and plan: 58-year-old male with past medical history of hypertension, congestive heart failure, NM 18 years ago presenting for complaint of shortness of breath of onset last Friday. Patient states that over the course the last 2 days his symptoms progressively worsened. He had associated symptoms of fever, dry cough, poor p.o. intake, diarrhea and generalized weakness. Ongoing evaluation and treatment for covid pneumonia Acute hypoxic respiratory failure COVID-19 pneumonia Sepsis. Present on admission. Patient met criteria given the fever, tachycardia and diagnosis of pneumonia. Transaminitis. Etiology secondary to sepsis. Chronic CHF. Hypertension. Hyperlipidemia. History of rheumatoid arthritis. Peripheral neuropathy. Hospital Course: 03/29/2021: Cardiology evaluated patient due to 5 beats NSVT. Increased coreg, continue entresto. Patient follows with Dr Martinez. ID evaluated patient, Remdesivir started. Will continue supportive care. 03/30/2021: Respiratory distress overnight. LIkely an allergic reaction to remdesivir. Remdesivir has since been discontinued. Was on BIPAP on encounter and has since been dropped to 15 l/min salter nc. Continue supportive management. Will order inflammatory markers. 03/31/2021: Remains on salter nc 15l /min. sats 88-90% but in no distress. Continue supporitve management. Increased steroids to 60 q6hr. Obtained Pu lmonology consult. CXR ordered, will follow. 04/01/2021: Remains on salter nc 12l /min. sats 88-90% but in no distress. Titrate down O2 requirements, ok with sats > 88%. Continue supporitve management . Lasix 20 mg IV x 1 ordered. 04/02/2021: Remains on salter nc 12l /min. Able to ambulate without any distress but does desaturate to 78%. Sats 88-90% when resting. Titrate down O2 requirements, ok with sats > 88%. Lasix 40 mg IV twice daily x 2 doses ordered. Continue supportive management 04/03/2021. Remains on salter nc but decreased from 12l /min to 8 L/min. Titrate down O2 requirements, ok with sats > 88%. Continue Lasix as needed 04/04/2021. Patient's oxygen was decreased to 10 L/min but was noted to have desaturation into the 70s. Therefore, patient was placed on 15 L with nonrebre ather. Continue prone positioning as able. Patient has significantly elevated D- dimer. However, Doppler studies and CTA of chest were negative. Continue to trend D-dimer along with other inflammatory markers. Prognosis is guarded 04/05/2021. Patient sitting up in a chair and states that he feels comfortable. Patient previously on nonrebreather plus Salter nasal cannula 15 L FiO2 100% which has now been weaned to 8 L. Continue prone positioning as possible. Repeat D-dimer on 04/03 was still greater than 10,000 but CTA of chest and Doppler studies of lower extremities were negative. Recheck D-dimer in a.m. 04/06/2021. D-dimer is slightly decreased to ~8700. Patient remains on salter nasal cannula 8 L/min. Continue prone positioning as possible. Continue to trend inflammatory markers. 04/07/2021. Patient remains on salter nasal cannula 8 L/min. Continue prone positioning as possible. Continue to trend inflammatory markers. PT/OT. Exercise pulse oximetry testing at discharge. 04/08/2021. Patient remains on salter nasal cannula increased to 10 L/min. Continue prone positioning as possible. Continue to trend inflammatory markers. Continue IV Solu-Medrol per pulmonary recommendations. BG is stable. 04/09/2021. Patient remains on salter nasal cannula increased to 10 L/min. Continue prone positioning as possible. Continue to trend inflammatory markers. Continue IV Solu-Medrol per pulmonary recommendations. BG is stable. History Interval history: No new issues overnight Hospitalist Physical - Constitutional Vitals: Temp Pulse Resp BP Pulse Ox 97.7 F 85 20 112/60 90 04/08/21 21:27 04/08/21 22:00 04/08/21 22:00 04/08/21 21:27 04/09/21 04:53 General appearance: Present: no acute distress - EENT Eyes: Present: PERRL, EOM intact ENT: hearing intact, clear oral mucosa, dentition normal - Neck Neck: Present: supple, normal ROM - Respiratory Respiratory effort: normal Respiratory: bilateral: CTA - Cardiovascular Rhythm: regular Heart Sounds: Present: S1 & S2. Absent: gallop, rub - Extremities Extremities: no ischemia, No edema, Full ROM - Abdominal General gastrointestinal: soft, non-tender, non-distended, normal bowel sounds - Integumentary Integumentary: Present: clear, warm, dry - Neurologic Neurologic: CNII-XII intact, moves all extremities HEART Score - HEART Score Troponin: Troponin T 0.013 ng/mL (0.00-0.029) 03/28/21 Unknown Results - Labs CBC & Chem 7: 04/06/21 05:03 04/06/21 05:03 Labs: Laboratory Last Values WBC 11.7 K/mm3 (4.5-11.0) H 04/06/21 05:03 RBC 4.04 M/mm3 (3.65-5.03) 04/06/21 05:03 Hgb 12.3 gm/dl (11.8-15.2) 04/06/21 05:03 Hct 36.4 % (35.5-45.6) 04/06/21 05:03 MCV 90 fl (84-94) 04/06/21 05:03 MCH 31 pg (28-32) 04/06/21 05:03 MCHC 34 % (32-34) 04/06/21 05:03 RDW 15.6 % (13.2-15.2) H 04/06/21 05:03 Plt Count 184 K/mm3 (140-440) 04/06/21 05:03 Lymph % (Auto) 2.3 % (13.4-35.0) L 04/02/21 05:57 [place] % (Auto) 10.5 % (0.0-7.3) H 04/02/21 05:57 Eos % (Auto) 0.0 % (0.0-4.3) 04/02/21 05:57 Baso % (Auto) 1.2 % (0.0-1.8) 04/02/21 05:57 Lymph # (Auto) 0.3 K/mm3 (1.2-5.4) L 04/02/21 05:57 [place] # (Auto) 1.4 K/mm3 (0.0-0.8) H 04/02/21 05:57 Eos # (Auto) 0.0 K/mm3 (0.0-0.4) 04/02/21 05:57 Baso # (Auto) 0.2 K/mm3 (0.0-0.1) H 04/02/21 05:57 Add Manual Diff Complete 04/06/21 05:03 Total Counted 100 04/06/21 05:03 Seg Neutrophils % [employer] 04/06/21 05:03 Band Neutrophils % 1.0 % 04/06/21 05:03 Lymphocytes % (Manual) 1.0 % (13.4-35.0) L 04/06/21 05:03 Monocytes % (Manual) 2.0 % (0.0-7.3) 04/06/21 05:03 Nucleated RBC % Not Reportable 04/06/21 05:03 Seg Neutrophils # 11.7 K/mm3 (1.8-7.7) H 04/02/21 05:57 Seg Neutrophils # Man 11.2 K/mm3 (1.8-7.7) H 04/06/21 05:03 Band Neutrophils # 0.1 K/mm3 04/06/21 05:03 Lymphocytes # (Manual) 0.1 K/mm3 (1.2-5.4) L 04/06/21 05:03 Abs React Lymphs (Man) 0.0 K/mm3 04/06/21 05:03 Monocytes # (Manual) 0.2 K/mm3 (0.0-0.8) 04/06/21 05:03 Eosinophils # (Manual) 0.0 K/mm3 (0.0-0.4) 04/06/21 05:03 Basophils # (Manual) 0.0 K/mm3 (0.0-0.1) 04/06/21 05:03 Metamyelocytes # 0.0 K/mm3 04/06/21 05:03 Myelocytes # 0.0 K/mm3 04/06/21 05:03 Promyelocytes # 0.0 K/mm3 04/06/21 05:03 Blast Cells # 0.0 K/mm3 04/06/21 05:03 WBC Morphology Not Reportable 04/06/21 05:03 Hypersegmented Neuts Not Reportable 04/06/21 05:03 Hyposegmented Neuts Not Reportable 04/06/21 05:03 Hypogranular Neuts Not Reportable 04/06/21 05:03 Smudge Cells Not Reportable 04/06/21 05:03 Toxic Granulation Not Reportable 04/06/21 05:03 Toxic Vacuolation Not Reportable 04/06/21 05:03 Dohle Bodies Not Reportable 04/06/21 05:03 Pelger-Huet Anomaly Not Reportable 04/06/21 05:03 Adan Rods Not Reportable 04/06/21 05:03 Platelet Estimate Consistent w auto 04/06/21 05:03 Clumped Platelets Not Reportable 04/06/21 05:03 Plt Clumps, EDTA Not Reportable 04/06/21 05:03 Large Platelets Not Reportable 04/06/21 05:03 Giant Platelets Not Reportable 04/06/21 05:03 Platelet Satelliting Not Reportable 04/06/21 05:03 Plt Morphology Comment Not Reportable 04/06/21 05:03 RBC Morphology Not Reportable 04/06/21 05:03 Dimorphic RBCs Not Reportable 04/06/21 05:03 Polychromasia Not Reportable 04/06/21 05:03 Hypochromasia Not Reportable 04/06/21 05:03 Poikilocytosis 1+ 04/06/21 05:03 Anisocytosis Not Reportable 04/06/21 05:03 Microcytosis Not Reportable 04/06/21 05:03 Macrocytosis Not Reportable 04/06/21 05:03 Spherocytes Not Reportable 04/06/21 05:03 Pappenheimer Bodies Not Reportable 04/06/21 05:03 Sickle Cells Not Reportable 04/06/21 05:03 Target Cells Not Reportable 04/06/21 05:03 Tear Drop Cells Not Reportable 04/06/21 05:03 Ovalocytes Not Reportable 04/06/21 05:03 Helmet Cells Not Reportable 04/06/21 05:03 [place] Bodies Not Reportable 04/06/21 05:03 [place] Rings Not Reportable 04/06/21 05:03 Tushar Cells Not Reportable 04/06/21 05:03 Bite Cells Not Reportable 04/06/21 05:03 Crenated Cell Not Reportable 04/06/21 05:03 Elliptocytes Not Reportable 04/06/21 05:03 Acanthocytes (Spur) Not Reportable 04/06/21 05:03 Rouleaux Not Reportable 04/06/21 05:03 Hemoglobin C Crystals Not Reportable 04/06/21 05:03 Schistocytes Not Reportable 04/06/21 05:03 Malaria parasites Not Reportable 04/06/21 05:03 Luke Bodies Not Reportable 04/06/21 05:03 Hem Pathologist Commnt No 04/06/21 05:03 PT 13.2 Sec. (12.2-14.9) 03/28/21 Unknown INR 0.95 (0.87-1.13) 03/28/21 Unknown APTT 38.7 Sec. (24.2-36.6) H 03/28/21 Unknown D-Dimer 8753.33 ng/mlDDU (0-234) H 04/06/21 05:03 ABG pH 7.455 pH Units (7.350-7.450) H 04/06/21 11:40 POC ABG pCO2 42.0 mmHg (32.0-48.0) 03/29/21 20:03 ABG pCO2 39.3 mm Hg 04/06/21 11:40 POC ABG pO2 51.4 mmHg (83-108) L 03/29/21 20:03 ABG pO2 69.0 mm Hg (80.0-90.0) L 04/06/21 11:40 POC ABG HCO3 18.6 03/29/21 20:03 ABG HCO3 27.0 mmol/L (20.0-26.0) H 04/06/21 11:40 ABG O2 Saturation 93.7 % (95.0-99.0) L 04/06/21 11:40 ABG O2 Content 18.1 (0.0-44) 04/06/21 11:40 POC ABG Base Excess -8.0 03/29/21 20:03 ABG Base Excess 3.0 mmol/L (-2.0-3.0) 04/06/21 11:40 ABG Hemoglobin 13.8 gm/dl (14.0-18.0) L 04/06/21 11:40 ABG Oxyhemoglobin 77.6 (94-98) L 03/29/21 20:03 ABG Carboxyhemoglobin 0.4 % (0.0-5.0) 04/06/21 11:40 ABG Methemoglobin Not Reportable 04/06/21 11:40 ABG Sodium 136.8 mmol/L (136.0-145.0) 03/29/21 20:03 ABG Potassium 4.0 mmol/L (3.40-4.50) 03/29/21 20:03 ABG Chloride 104.0 mmol/L (98-107) 03/29/21 20:03 ABG Glucose 275 mg/dL (65-95) H 03/29/21 20:03 Oxyhemoglobin 93.3 % (95.0-99.0) L 04/06/21 11:40 Carboxyhemoglobin 1.5 (0.5-1.5) 03/29/21 20:03 FiO2 21 % 04/06/21 11:40 FiO2 % 100.0 03/29/21 20:03 Sodium 138 mmol/L (137-145) 04/06/21 05:03 Potassium 4.1 mmol/L (3.6-5.0) 04/06/21 05:03 Chloride 103.1 mmol/L (98-107) 04/06/21 05:03 Carbon Dioxide 31 mmol/L (22-30) H 04/06/21 05:03 Anion Gap 8 mmol/L 04/06/21 05:03 BUN 22 mg/dL (9-20) H 04/06/21 05:03 Creatinine 0.7 mg/dL (0.8-1.3) L 04/06/21 05:03 Estimated GFR > 60 ml/min 04/06/21 05:03 BUN/Creatinine Ratio 31 % 04/06/21 05:03 Glucose 145 mg/dL (75-100) H 04/06/21 05:03 POC Glucose 160 mg/dL (70-105) H 04/02/21 21:00 Lactic Acid 1.60 mmol/L (0.7-2.0) 03/28/21 Unknown Calcium 8.6 mg/dL (8.4-10.2) 04/06/21 05:03 Magnesium 2.60 mg/dL (1.7-2.3) H 03/29/21 02:30 Ferritin 1117.0 ng/mL (30.0-300.0) H 04/03/21 05:56 Total Bilirubin 0.90 mg/dL (0.1-1.2) 04/02/21 05:57 AST 42 units/L (5-40) H 04/02/21 05:57 ALT 32 units/L (7-56) 04/02/21 05:57 Alkaline Phosphatase 85 units/L (35-129) 04/02/21 05:57 Lactate Dehydrogenase 811 units/L (91-180) H 04/02/21 05:57 Troponin T 0.013 ng/mL (0.00-0.029) 03/28/21 Unknown C-Reactive Protein 1.20 mg/dL (0.00-1.30) 04/03/21 05:56 Total Protein 6.6 g/dL (6.3-8.2) 04/02/21 05:57 Albumin 3.0 g/dL (3.9-5) L 04/02/21 05:57 Albumin/Globulin Ratio 0.8 % 04/02/21 05:57 Procalcitonin 0.37 ng/mL (<0.15) 03/28/21 09:25 Arterial Blood Glucose 275 mg/dL (65-95) H 03/29/21 20:03 Arterial Blood Ionized Calcium 4.5 mg/dL (4.6-5.3) L 03/29/21 20:03 Urine Color [place] (Yellow) 03/28/21 Unknown Urine Turbidity Clear (Clear) 03/28/21 Unknown Urine pH 5.0 (5.0-7.0) 03/28/21 Unknown Ur Specific [place] 1.038 (1.003-1.030) H 03/28/21 Unknown Urine Protein >500 mg/dL (Negative) 03/28/21 Unknown Urine Glucose (UA) 50 mg/dL (Negative) 03/28/21 Unknown Urine Ketones Tr mg/dL (Negative) 03/28/21 Unknown Urine Blood Mod (Negative) 03/28/21 Unknown Urine Nitrite Neg (Negative) 03/28/21 Unknown Urine Bilirubin Neg (Negative) 03/28/21 Unknown Urine Urobilinogen 2.0 mg/dL (<2.0) 03/28/21 Unknown Ur Leukocyte Esterase Neg (Negative) 03/28/21 Unknown Urine WBC (Auto) 6.0 /HPF (0.0-6.0) 03/28/21 Unknown Urine RBC (Auto) 2.0 /HPF (0.0-6.0) 03/28/21 Unknown U Epithel Cells (Auto) < 1.0 /HPF (0-13.0) 03/28/21 Unknown Urine Mucus Few /HPF 03/28/21 Unknown Coronavirus (PCR) Positive (Negative) A 03/28/21 Unknown [place]oney/IV: Voiding Method Toilet Active Medications - Current Medications Current Medications: Generic Name Dose Route Start Last Admin Trade Name Freq PRN Reason Stop Dose Admin Acetaminophen 650 mg 03/28/21 12:45 Acetaminophen 325 Mg Tab PO Q4H PRN Pain MILD(1-3)/Fever >100.5/MIRANDA Albuterol 2.5 mg 04/08/21 11:23 Albuterol 2.5 Mg/3 Ml Nebu IH Q4H PRN Shortness of breath. Arformoterol Tartrate 15 mcg 04/08/21 20:00 04/08/21 23:10 Arformoterol 15 Mcg/2 Ml Nebu IH Not Given Q12HRT LISSETTE Aspirin 81 mg 03/29/21 10:00 04/08/21 09:36 Aspirin 81 Mg Tab Chew PO 81 mg QDAY LISSETTE Administration Benzonatate 100 mg 03/29/21 07:00 04/09/21 05:24 Benzonatate 100 Mg Cap PO 100 mg Q8HR LISSETTE Administration Budesonide 0.5 mg 04/08/21 20:00 04/08/21 23:10 Budesonide 0.5 Mg/2 Ml Nebu IH Not Given Q12HRT LISSETTE Carvedilol 25 mg 03/29/21 10:00 04/08/21 21:59 Carvedilol 25 Mg Tab PO 25 mg Q12HR LISSETTE Administration Enoxaparin Sodium 40 mg 03/28/21 14:00 04/08/21 09:36 Enoxaparin 40 Mg/0.4 Ml Inj SUB-Q 40 mg DAILY LISSETTE Administration Protocol Gabapentin 300 mg 03/29/21 18:00 04/08/21 18:05 Gabapentin 300 Mg Cap PO 300 mg QPM LISSETTE Administration Labetalol HCl 10 mg 03/28/21 15:34 Labetalol 20 Mg/4 Ml Inj IV Q6HR PRN sbp > 160, hold for hr < 70 Miscellaneous Medication 20 mg 03/29/21 10:00 Leflunomide PO DAILY LISSETTE Ondansetron HCl 4 mg 03/28/21 12:45 Ondansetron 4 Mg/2 Ml Inj IV Q8H PRN Nausea And Vomiting Oxycodone/Acetaminophen 1 tab 03/28/21 12:45 04/01/21 10:36 Oxycodone /Acetaminophen 5-325mg Tab PO 1 tab Q6H PRN Administration Pain, Moderate (4-6) Pravastatin Sodium 40 mg 03/29/21 22:00 04/08/21 21:59 Pravastatin 40 Mg Tab PO 40 mg QHS LISSETTE Administration Sodium Chloride 10 ml 03/28/21 22:00 04/08/21 21:59 Sodium Chloride 0.9% 10 Ml Flush Syringe IV 10 ml BID LISSETTE Administration Sodium Chloride 10 ml 03/28/21 12:45 Sodium Chloride 0.9% 10 Ml Flush Syringe IV PRN PRN LINE FLUSH Nutrition/Malnutrition Assess - Dietary Evaluation Nutrition/Malnutrition Findings: Nutrition Notes Start: 03/29/21 14: 40 Freq: Status: Active Protocol: Document 04/03/21 14:34 GB (Rec: 04/03/21 14:41 GB [id number]) Nutrition Notes Initial or Follow up Reassessment Current Diagnosis Hypertension,Heart Failure Other Pertinent Diagnosis SOB Current Diet cardiac Labs/Tests 04/02: BUN 22, creatinine 0.7, glucose 149, AST 42 Pertinent Medications reviewed Height 5 ft 5 in Weight 86.6 kg [place] Body Weight (kg) 61.81 BMI 31.7 Weight change and time frame +7 kg from admit. +8% gain. Weight Status Obese Subjective/Other Information PO intake of meals recorded at 75% or greater and independent with meals. Percent of energy/protein needs met: PO intake of 75% or greater of meals TID daily will meet 90% or greater of estimated energy needs. Burn Absent Trauma Absent GI Symptoms None Food Allergy No Skin Integrity/Comment no reported skin complications Current % PO Good (75-100%) Minimum of two criteria No #1 Nutrition Diagnosis Predicted suboptimal energy intake Comments: depending on duration and complications of possible covid and treatments 04/03: PO intake of meals recorded at 75% or greater Etiology SOB As Evidenced by Signs and Symptoms reported decreased PO r/t decreased appetite Diagnosis Progress(for reassessment Improved documentation) Is patient on ventilator? No Is Patient Ambulatory and/or Out of Bed Yes REE-([place]-St. Jeor-ambulatory/OOB) [ [id number]] Kcal/Kg value to use for calculation 22 Approximate Energy Requirements Using 1905 kcal/Kg Calculation Used for Recommendations Kcal/kg Additional Notes Protein: 0.8-1 g/kg @83k- 83g Fluids: 1 ml/kcal or per MD Nutrition Intervention Change Diet Order: continue Nutrition Support: n/a Add Supplement/Snack (indicate name/kcal n/a /protein ) Goal #1 PO intake of meals to be 50% or greater TID daily for LOS 04/03: met - 75% or greater, continues Goal #2 Weight to maintain within +/-3 % current weight for LOS 04/03: +8% gain, not met, continues: weight change could be resulted from medication regime Follow-Up By: 04/10/21 Additional Comments nursing staff to monitor and record PO intake of meals daily - continues
[2021-04-09] MEDS: ASPIRIN 81 MG TAB CHEW PO SCH (09:32)
[2021-04-09] MEDS: ENOXAPARIN 40 MG/0.4 ML INJ SUB-Q SCH (09:32)
[2021-04-09] MEDS: SACUBITRIL/VALSARTAN 49-51 MG TAB PO SCH ×2 (09:32→22:48)
[2021-04-09] MEDS: carvediloL 25 MG TAB PO SCH ×2 (09:33→22:49)
[2021-04-09] MEDS: BUDESONIDE 0.5 MG/2 ML NEBU IH SCH ×2 (09:51→19:18)
[2021-04-09] MEDS: ARFORMOTEROL 15 MCG/2 ML NEBU IH SCH ×2 (09:51→19:17)
--- NOTE | 2021-04-09 13:02 | Progress Note ---
Assessment and Plan 66-year-old male with past medical history of hypertension, congestive heart failure, [place] 18 years ago presenting for complaint of shortness of breath of onset last Friday. Patient was seen and evaluated at our emergency department 2 days ago for similar symptoms. He was believed to have symptoms consistent with Covid 19 viral illness . He was discharged with prescriptions for Tessalon Perles and albuterol nebulizer and instructed to obtain outpatient COVID-19 testing. Patient states that over the course the last 2 days his sym ptoms progressively worsened. He had associated symptoms of fever, dry cough, poor p.o. intake, diarrhea and generalized weakness. Medications prescribed 2 days ago did not relieve symptoms. When patient had near syncopal event, who is a devulcanizer charger at our facility recommended he come back to our hospital to be evaluated and treated. On arrival patient was found to be hypoxic with saturations of 80%. This improved to 93% on my encounter, patient was on 4 L nasal cannula. Of note he does have a history of congestive heart failure. He could not remember the name of his current fleet assistant however he did used to follow with Dr. Pabon from [facility]. He did not know what his ejection fraction was but did state he is currently taking Entresto and Coreg for his congestive heart failure. Moreover, patient has been vaccinated against COVID-19 receiving in both doses of the Pfizer vaccine back in . He denied any known sick contacts except for his who had similar symptoms but recovered uneventfully. She was not tested but is vaccinated against COVID-19. Patient has no history of smoking, alcohol or drug abuse. 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 ED Course: Azithromycin IV, Rocephin IV, Decadron IV, albuterol nebulizer Patient awake. Resting in bed. Still on High-flow O2 10L and O2 saturation 92%. ABG on 100% FIO2 ABG pH 7.264 (7.320-7.450) L 03/29/21 20:03 POC ABG pCO2 42.0 mmHg (32.0-48.0) 03/29/21 20:03 POC ABG pO2 51.4 mmHg (83-108) L 03/29/21 20:03 POC ABG HCO3 18.6 03/29/21 20:03 ABG O2 Saturation 78.9 (0-100) 03/29/21 20:03 PT/INR, D-dimer Patient afebrile. Mild leukocytosis present WBC 11.7. Blood pressure 153/87, Pulse 97. Denies chest pain, shortness of breath or cough at rest. Chest xray done 03/28/21 reported Stable mild perihilar prominence. No con solidation, pleural effusion or pneumothorax. Patient has Angio CT of chest 03/28/21 reported No evidence of pulmonary thromboembolism . Extensive bilateral pneumonitis, probably viral Chest xray done 04/08/21 reported Improved aeration with persistence of multifocal airspace opacities. Patient presently on Enoxaparin, Benzonatate, Brovana, Albuterol inhaler and Budesonide aerosol treatments. Patient finished course of Ceftriaxone, Zithromax. - Patient Problems (1) Acute respiratory failure with hypoxia Current Visit: Yes Status: Acute Plan to address problem: Patient still on high flow O2 10 litres Continue Albuterol inhaler, budesonide, and brovana. Continue S/C Enoxaparin (2) COVID-19 virus infection Current Visit: Yes Status: Acute Plan to address problem: S/C Lovenox. Management as per infectious diseases. (3) Pneumonia due to COVID-19 virus Current Visit: Yes Status: Acute Plan to address problem: Patient was on ceftriaxone and Zithromax. (4) CAD (coronary artery disease) Current Visit: Yes Status: Acute Plan to address problem: Management as per cardiology. (5) HFrEF (heart failure with reduced ejection fraction) Current Visit: Yes Status: Acute Plan to address problem: Management as per cardiology. (6) HTN (hypertension) Current Visit: Yes Status: Acute Plan to address problem: Management as per primary care. Subjective Date of service: 04/09/21 Principal diagnosis: Acute hypoxemic resp failure; COVID-19 infxn; Pneumonia; CAD; HFrEF; HTN Interval history: 66-year-old male with past medical history of hypertension, congestive heart failure, [place] 18 years ago presenting for complaint of shortness of breath of onset last Friday. Patient was seen and evaluated at our emergency department 2 days ago for similar symptoms. He was believed to have symptoms consistent with Covid 19 viral illness . He was discharged with prescriptions for Tessalon Perles and albuterol nebulizer and instructed to obtain outpatient COVID-19 testing. Patient states that over the course the last 2 days his symptoms progressively worsened. He had associated symptoms of fever, dry cough, poor p.o. intake, diarrhea and generalized weakness. Medications prescribed 2 days ago did not relieve symptoms. When patient had near syncopal event, who is a devulcanizer charger at our facility recommended he come back to our hospital to be evaluated and treated. On arrival patient was found to be hy poxic with saturations of 80%. This improved to 93% on my encounter, patient was on 4 L nasal cannula. Of note he does have a history of congestive heart failure. He could not remember the name of his current fleet assistant however he did used to follow with Dr. Pabon from [facility]. He did not know what his ejection fraction was but did state he is currently taking Entresto and Coreg for his congestive heart failure. Moreover, patient has been vaccinated against COVID-19 receiving in both doses of the Pfizer vaccine back in . He denied any known sick contacts except for his who had similar symptoms but recovered uneventfully. She was not tested but is vaccinated against COVID-19. Patient has no history of smoking, alcohol or drug abuse. 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 ED Course: Azithromycin IV, Rocephin IV, Decadron IV, albuterol nebulizer Patient awake. Resting in bed. Still on High-flow O2 10L and O2 saturation 92%. ABG on 100% FIO2 ABG pH 7.264 (7.320-7.450) L 03/29/21 20:03 POC ABG pCO2 42.0 mmHg (32.0-48.0) 03/29/21 20:03 POC ABG pO2 51.4 mmHg (83-108) L 03/29/21 20:03 POC ABG HCO3 18.6 03/29/21 20:03 ABG O2 Saturation 78.9 (0-100) 03/29/21 20:03 PT/INR, D-dimer Patient afebrile. Mild leukocytosis present WBC 11.7. Blood pressure 153/87, Pulse 97. Denies chest pain, shortness of breath or cough at rest. Chest xray done 03/28/21 reported Stable mild perihilar prominence. No consolidation, pleural effusion or pneumothorax. Patient has Angio CT of chest 03/28/21 reported No evidence of pulmonary thromboembolism . Extensive bilateral pneumonitis, probably viral Chest xray done 04/08/21 reported Improved aeration with persistence of multifocal airspace opacities. Patient presently on Enoxaparin, Benzonatate, Brovana, Albuterol inhaler and Budesonide aerosol treatments. Patient finished course of Ceftriaxone, Zithromax Objective Vital Signs - 12hr 04/09/21 04/09/21 04/09/21 03:36 04:53 09:33 Pulse Rate [ Bilateral Throughout] Respiratory Rate [Bilateral Throughout] Blood Pressure 153/87 O2 Sat by Pulse 94 90 Oximetry 04/09/21 04/09/21 04/09/21 09:50 09:51 10:48 Pulse Rate [ 97 H Bilateral Throughout] Respiratory 20 Rate [Bilateral Throughout] Blood Pressure O2 Sat by Pulse 92 90 Oximetry Constitutional: no acute distress, alert Eyes: non-icteric ENT: oropharynx moist Neck: supple, no lymphadenopathy, no JVD Effort: mildly labored Ascultation: Bilateral: rhonchi Percussion: Bilateral: not dull Cardiovascular: regular rate and rhythm Gastrointestinal: normoactive bowel sounds, soft, non-tender, non-distended (protuberant) Integumentary: normal Extremities: no cyanosis, no edema Neurologic: normal mental status, non-focal exam, pupils equal and round, CN II- XII normal Psychiatric: mood appropriate, affect normal CBC and BMP: 04/06/21 05:03 04/06/21 05:03 ABG, PT/INR, D-dimer: ABG ABG pH 7.455 pH Units (7.350-7.450) H 04/06/21 11:40 POC ABG pCO2 42.0 mmHg (32.0-48.0) 03/29/21 20:03 ABG pCO2 39.3 mm Hg 04/06/21 11:40 POC ABG pO2 51.4 mmHg (83-108) L 03/29/21 20:03 ABG pO2 69.0 mm Hg (80.0-90.0) L 04/06/21 11:40 POC ABG HCO3 18.6 03/29/21 20:03 ABG O2 Saturation 93.7 % (95.0-99.0) L 04/06/21 11:40 PT/INR, D-dimer PT 13.2 Sec. (12.2-14.9) 03/28/21 Unknown INR 0.95 (0.87-1.13) 03/28/21 Unknown D-Dimer 8753.33 ng/mlDDU (0-234) H 04/06/21 05:03 Abnormal lab findings: Abnormal Labs 03/28/21 03/28/21 03/28/21 08:26 09:25 09:25 WBC RDW Plt Count Lymph % (Auto) [place] % (Auto) Lymph # (Auto) [place] # (Auto) Baso # (Auto) Seg Neutrophils % Lymphocytes % (Manual) Seg Neutrophils # Seg Neutrophils # Man Lymphocytes # (Manual) APTT D-Dimer 1100.30 H ABG pH POC ABG pO2 ABG pO2 ABG HCO3 ABG O2 Saturation ABG Hemoglobin ABG Oxyhemoglobin ABG Glucose Oxyhemoglobin Carbon Dioxide BUN Creatinine Glucose 109 H POC Glucose Magnesium 2.40 H Ferritin AST Lactate Dehydrogenase 677 H C-Reactive Protein 13.70 H Albumin Arterial Blood Glucose Arterial Blood Ionized Calcium Ur Specific [place] Coronavirus (PCR) 03/28/21 03/28/21 03/28/21 09:25 Unknown Unknown WBC RDW Plt Count 96 L Lymph % (Auto) 7.2 L [place] % (Auto) 10.8 H Lymph # (Auto) 0.5 L [place] # (Auto) Baso # (Auto) Seg Neutrophils % 81.8 H Lymphocytes % (Manual) Seg Neutrophils # Seg Neutrophils # Man Lymphocytes # (Manual) APTT D-Dimer ABG pH POC ABG pO2 ABG pO2 ABG HCO3 ABG O2 Saturation ABG Hemoglobin ABG Oxyhemoglobin ABG Glucose Oxyhemoglobin Carbon Dioxide BUN Creatinine Glucose POC Glucose Magnesium Ferritin 1340.0 H AST Lactate Dehydrogenase C-Reactive Protein Albumin Arterial Blood Glucose Arterial Blood Ionized Calcium Ur Specific [place] 1.038 H Coronavirus (PCR) 03/28/21 03/28/21 03/28/21 Unknown Unknown Unknown WBC RDW Plt Count Lymph % (Auto) [place] % (Auto) Lymph # (Auto) [place] # (Auto) Baso # (Auto) Seg Neutrophils % Lymphocytes % (Manual) Seg Neutrophils # Seg Neutrophils # Man Lymphocytes # (Manual) APTT 38.7 H D-Dimer ABG pH POC ABG pO2 ABG pO2 ABG HCO3 ABG O2 Saturation ABG Hemoglobin ABG Oxyhemoglobin ABG Glucose Oxyhemoglobin Carbon Dioxide BUN Creatinine Glucose 120 H POC Glucose Magnesium Ferritin AST 73 H Lactate Dehydrogenase C-Reactive Protein Albumin 3.4 L Arterial Blood Glucose Arterial Blood Ionized Calcium Ur Specific [place] Coronavirus (PCR) Positive A 03/29/21 03/29/21 03/29/21 02:30 02:30 02:30 WBC RDW 15.4 H Plt Count 107 L Lymph % (Auto) 5.6 L [place] % (Auto) 10.0 H Lymph # (Auto) 0.4 L [place] # (Auto) Baso # (Auto) Seg Neutrophils % 84.2 H Lymphocytes % (Manual) Seg Neutrophils # Seg Neutrophils # Man Lymphocytes # (Manual) APTT D-Dimer ABG pH POC ABG pO2 ABG pO2 ABG HCO3 ABG O2 Saturation ABG Hemoglobin ABG Oxyhemoglobin ABG Glucose Oxyhemoglobin Carbon Dioxide BUN Creatinine Glucose 128 H POC Glucose Magnesium 2.60 H Ferritin AST 64 H Lactate Dehydrogenase C-Reactive Protein Albumin 3.1 L Arterial Blood Glucose Arterial Blood Ionized Calcium Ur Specific [place] Coronavirus (PCR) 03/29/21 03/29/21 03/29/21 15:30 19:48 20:03 WBC RDW Plt Count Lymph % (Auto) [place] % (Auto) Lymph # (Auto) [place] # (Auto) Baso # (Auto) Seg Neutrophils % Lymphocytes % (Manual) Seg Neutrophils # Seg Neutrophils # Man Lymphocytes # (Manual) APTT D-Dimer ABG pH 7.264 L POC ABG pO2 51.4 L ABG pO2 ABG HCO3 ABG O2 Saturation ABG Hemoglobin ABG Oxyhemoglobin 77.6 L ABG Glucose 275 H Oxyhemoglobin Carbon Dioxide 21 L BUN Creatinine Glucose 125 H POC Glucose 189 H Magnesium Ferritin AST 64 H Lactate Dehydrogenase C-Reactive Protein Albumin 2.8 L Arterial Blood Glucose 275 H Arterial Blood Ionized Calcium 4.5 L Ur Specific [place] Coronavirus (PCR) 03/30/21 03/31/21 03/31/21 06:07 07:38 07:38 WBC 11.8 H RDW 15.4 H Plt Count Lymph % (Auto) 2.4 L [place] % (Auto) 8.4 H Lymph # (Auto) 0.3 L [place] # (Auto) 1.0 H Baso # (Auto) Seg Neutrophils % 89.0 H Lymphocytes % (Manual) Seg Neutrophils # 10.5 H Seg Neutrophils # Man Lymphocytes # (Manual) APTT D-Dimer > 47997 H ABG pH POC ABG pO2 ABG pO2 ABG HCO3 ABG O2 Saturation ABG Hemoglobin ABG Oxyhemoglobin ABG Glucose Oxyhemoglobin Carbon Dioxide BUN Creatinine Glucose 131 H POC Glucose Magnesium Ferritin AST 49 H Lactate Dehydrogenase C-Reactive Protein Albumin 2.7 L Arterial Blood Glucose Arterial Blood Ionized Calcium Ur Specific [place] Coronavirus (PCR) 03/31/21 03/31/21 04/01/21 07:38 07:38 06:37 WBC RDW Plt Count Lymph % (Auto) [place] % (Auto) Lymph # (Auto) [place] # (Auto) Baso # (Auto) Seg Neutrophils % Lymphocytes % (Manual) Seg Neutrophils # Seg Neutrophils # Man Lymphocytes # (Manual) APTT D-Dimer ABG pH POC ABG pO2 ABG pO2 ABG HCO3 ABG O2 Saturation ABG Hemoglobin ABG Oxyhemoglobin ABG Glucose Oxyhemoglobin Carbon Dioxide BUN Creatinine 0.7 L 0.7 L Glucose 122 H 117 H POC Glucose Magnesium Ferritin 1419.0 H AST 42 H 53 H Lactate Dehydrogenase 752 H C-Reactive Protein 4.40 H Albumin 2.9 L 3.2 L Arterial Blood Glucose Arterial Blood Ionized Calcium Ur Specific [place] Coronavirus (PCR) 04/02/21 04/02/21 04/02/21 05:57 05:57 05:57 WBC 13.6 H RDW 15.7 H Plt Count Lymph % (Auto) 2.3 L [place] % (Auto) 10.5 H Lymph # (Auto) 0.3 L [place] # (Auto) 1.4 H Baso # (Auto) 0.2 H Seg Neutrophils % 86.0 H Lymphocytes % (Manual) Seg Neutrophils # 11.7 H Seg Neutrophils # Man Lymphocytes # (Manual) APTT D-Dimer > 96506 H ABG pH POC ABG pO2 ABG pO2 ABG HCO3 ABG O2 Saturation ABG Hemoglobin ABG Oxyhemoglobin ABG Glucose Oxyhemoglobin Carbon Dioxide BUN 22 H Creatinine 0.7 L Glucose 149 H POC Glucose Magnesium Ferritin AST 42 H Lactate Dehydrogenase 811 H C-Reactive Protein 2.00 H Albumin 3.0 L Arterial Blood Glucose Arterial Blood Ionized Calcium Ur Specific [place] Coronavirus (PCR) 04/02/21 04/02/21 04/03/21 05:57 21:00 05:56 WBC RDW Plt Count Lymph % (Auto) [place] % (Auto) Lymph # (Auto) [place] # (Auto) Baso # (Auto) Seg Neutrophils % Lymphocytes % (Manual) Seg Neutrophils # Seg Neutrophils # Man Lymphocytes # (Manual) APTT D-Dimer > 34437 H ABG pH POC ABG pO2 ABG pO2 ABG HCO3 ABG O2 Saturation ABG Hemoglobin ABG Oxyhemoglobin ABG Glucose Oxyhemoglobin Carbon Dioxide BUN Creatinine Glucose POC Glucose 160 H Magnesium Ferritin 1180.0 H AST Lactate Dehydrogenase C-Reactive Protein Albumin Arterial Blood Glucose Arterial Blood Ionized Calcium Ur Specific [place] Coronavirus (PCR) 04/03/21 04/06/21 04/06/21 05:56 05:03 05:03 WBC 11.7 H RDW 15.6 H Plt Count Lymph % (Auto) [place] % (Auto) Lymph # (Auto) [place] # (Auto) Baso # (Auto) Seg Neutrophils % Lymphocytes % (Manual) 1.0 L Seg Neutrophils # Seg Neutrophils # Man 11.2 H Lymphocytes # (Manual) 0.1 L APTT D-Dimer 8753.33 H ABG pH POC ABG pO2 ABG pO2 ABG HCO3 ABG O2 Saturation ABG Hemoglobin ABG Oxyhemoglobin ABG Glucose Oxyhemoglobin Carbon Dioxide BUN Creatinine Glucose POC Glucose Magnesium Ferritin 1117.0 H AST Lactate Dehydrogenase C-Reactive Protein Albumin Arterial Blood Glucose Arterial Blood Ionized Calcium Ur Specific [place] Coronavirus (PCR) 04/06/21 04/06/21 05:03 11:40 WBC RDW Plt Count Lymph % (Auto) [place] % (Auto) Lymph # (Auto) [place] # (Auto) Baso # (Auto) Seg Neutrophils % Lymphocytes % (Manual) Seg Neutrophils # Seg Neutrophils # Man Lymphocytes # (Manual) APTT D-Dimer ABG pH 7.455 H POC ABG pO2 ABG pO2 69.0 L ABG HCO3 27.0 H ABG O2 Saturation 93.7 L ABG Hemoglobin 13.8 L ABG Oxyhemoglobin ABG Glucose Oxyhemoglobin 93.3 L Carbon Dioxide 31 H BUN 22 H Creatinine 0.7 L Glucose 145 H POC Glucose Magnesium Ferritin AST Lactate Dehydrogenase C-Reactive Protein Albumin Arterial Blood Glucose Arterial Blood Ionized Calcium Ur Specific [place] Coronavirus (PCR) Chest x-ray: report reviewed, image reviewed Additional Studies: CHEST 1 VIEW 04/08/2021 6:51 AM INDICATION / CLINICAL INFORMATION: Follow up on pulmonary infiltrates.. COMPARISON: 03/31/2021 FINDINGS: SUPPORT DEVICES: None. HEART / MEDIASTINUM: No significant abnormality. LUNGS / PLEURA: Improved aeration with persistent multifocal airspace opacities. No pneumothorax. ADDITIONAL FINDINGS: No significant additional findings. IMPRESSION: 1. Improved aeration with persistence of multifocal airspace opacities. Allied health notes reviewed: nursing
[2021-04-09] MEDS: GABAPENTIN 300 MG CAP PO SCH (17:34)
[2021-04-09] MEDS: PRAVASTATIN 40 MG TAB PO SCH (22:49)
[2021-04-10] MEDS: BENZONATATE 100 MG CAP PO SCH ×3 (05:21→22:25)
[2021-04-10] MEDS: ASPIRIN 81 MG TAB CHEW PO SCH (10:15)
[2021-04-10] MEDS: ENOXAPARIN 40 MG/0.4 ML INJ SUB-Q SCH (10:15)
[2021-04-10] MEDS: BUDESONIDE 0.5 MG/2 ML NEBU IH SCH ×2 (10:19→21:12)
[2021-04-10] MEDS: ARFORMOTEROL 15 MCG/2 ML NEBU IH SCH ×2 (10:19→21:13)
[2021-04-10] MEDS: carvediloL 25 MG TAB PO SCH ×2 (10:21→22:26)
[2021-04-10] MEDS: SACUBITRIL/VALSARTAN 49-51 MG TAB PO SCH ×2 (10:21→22:23)
--- NOTE | 2021-04-10 12:10 | Progress Note ---
Assessment and Plan 66-year-old male with past medical history of hypertension, congestive heart failure, DE 18 years ago presenting for complaint of shortness of breath of onset last Friday. Patient was seen and evaluated at our emergency department 2 days ago for similar symptoms. He was believed to have symptoms consistent with Covid 19 viral illness . He was discharged with prescriptions for Tessalon Perles and albuterol nebulizer and instructed to obtain outpatient COVID-19 testing. Patient states that over the course the last 2 days his sym ptoms progressively worsened. He had associated symptoms of fever, dry cough, poor p.o. intake, diarrhea and generalized weakness. Medications prescribed 2 days ago did not relieve symptoms. When patient had near syncopal event, who is a emergency care tech at our facility recommended he come back to our hospital to be evaluated and treated. On arrival patient was found to be hypoxic with saturations of 80%. This improved to 93% on my encounter, patient was on 4 L nasal cannula. Of note he does have a history of congestive heart failure. 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 Pabon from [facility]. He did not know what his ejection fraction was but did state he is currently taking Entresto and Coreg for his congestive heart failure. Moreover, patient has been vaccinated against COVID-19 receiving in both doses of the Pfizer vaccine back in . He denied any known sick contacts except for his who had similar symptoms but recovered uneventfully. She was not tested but is vaccinated against COVID-19. Patient has no history of smoking, alcohol or drug abuse. 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 ED Course: Azithromycin IV, Rocephin IV, Decadron IV, albuterol nebulizer Patient awake. Resting in bed. Still on High-flow O2 10L and O2 saturation 92%. ABG on 100% FIO2 ABG pH 7.264 (7.320-7.450) L 03/29/21 20:03 POC ABG pCO2 42.0 mmHg (32.0-48.0) 03/29/21 20:03 POC ABG pO2 51.4 mmHg (83-108) L 03/29/21 20:03 POC ABG HCO3 18.6 03/29/21 20:03 ABG O2 Saturation 78.9 (0-100) 03/29/21 20:03 PT/INR, D-dimer Patient afebrile. Mild leukocytosis present WBC 11.7. Blood pressure 153/87, Pulse 97. Denies chest pain, shortness of breath or cough at rest. Chest xray done 03/28/21 reported Stable mild perihilar prominence. No con solidation, pleural effusion or pneumothorax. Patient has Angio CT of chest 03/28/21 reported No evidence of pulmonary thromboembolism . Extensive bilateral pneumonitis, probably viral Chest xray done 04/08/21 reported Improved aeration with persistence of multifocal airspace opacities. Patient presently on Enoxaparin, Benzonatate, Brovana, Albuterol inhaler and Budesonide aerosol treatments. Patient finished course of Ceftriaxone, Zithromax. - Patient Problems (1) Acute respiratory failure with hypoxia Current Visit: Yes Status: Acute Plan to address problem: Patient still on high flow O2 10 litres Continue Albuterol inhaler, budesonide, and brovana. Continue S/C Enoxaparin (2) COVID-19 virus infection Current Visit: Yes Status: Acute Plan to address problem: S/C Lovenox. Management as per infectious diseases. (3) Pneumonia due to COVID-19 virus Current Visit: Yes Status: Acute Plan to address problem: Patient was on ceftriaxone and Zithromax. (4) CAD (coronary artery disease) Current Visit: Yes Status: Acute Plan to address problem: Management as per cardiology. (5) HFrEF (heart failure with reduced ejection fraction) Current Visit: Yes Status: Acute Plan to address problem: Management as per cardiology. (6) HTN (hypertension) Current Visit: Yes Status: Acute Plan to address problem: Management as per primary care. Subjective Date of service: 04/10/21 Principal diagnosis: Acute hypoxemic resp failure; COVID-19 infxn; Pneumonia; CAD; HFrEF; HTN Interval history: 66-year-old male with past medical history of hypertension, congestive heart failure, DE 18 years ago presenting for complaint of shortness of breath of onset last Friday. Patient was seen and evaluated at our emergency department 2 days ago for similar symptoms. He was believed to have symptoms consistent with Covid 19 viral illness . He was discharged with prescriptions for Tessalon Perles and albuterol nebulizer and instructed to obtain outpatient COVID-19 testing. Patient states that over the course the last 2 days his symptoms progressively worsened. He had associated symptoms of fever, dry cough, poor p.o. intake, diarrhea and generalized weakness. Medications prescribed 2 days ago did not relieve symptoms. When patient had near syncopal event, who is a emergency care tech at our facility recommended he come back to our hospital to be evaluated and treated. On arrival patient was found to be hy poxic with saturations of 80%. This improved to 93% on my encounter, patient was on 4 L nasal cannula. Of note he does have a history of congestive heart failure. 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 Pabon from [facility]. He did not know what his ejection fraction was but did state he is currently taking Entresto and Coreg for his congestive heart failure. Moreover, patient has been vaccinated against COVID-19 receiving in both doses of the Pfizer vaccine back in . He denied any known sick contacts except for his who had similar symptoms but recovered uneventfully. She was not tested but is vaccinated against COVID-19. Patient has no history of smoking, alcohol or drug abuse. Workd as [employer] efore he retired. 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 ED Course: Azithromycin IV, Rocephin IV, Decadron IV, albuterol nebulizer Patient awake.Alert, Resting in bed. Still on High-flow O2 10L and O2 saturation 93%. Denies chest pain, shortness of breath or cough. Patient afebrile. Mild leukocytosis present WBC 11.7. Blood pressure 141/78, Pulse 94. Denies chest pain, shortness of breath or cough at rest. Chest xray done 03/28/21 reported Stable mild perihilar prominence. No consolidation, pleural effusion or pneumothorax. Patient has Angio CT of chest 03/28/21 reported No evidence of pulmonary throm boembolism . Extensive bilateral pneumonitis, probably viral Chest xray done 04/08/21 reported Improved aeration with persistence of multifocal airspace opacities. Patient presently on Enoxaparin, Benzonatate, Brovana, Albuterol inhaler and Budesonide aerosol treatments. Patient finished course of Ceftriaxone, Zithromax Objective Vital Signs - 12hr 04/10/21 04/10/21 04/10/21 02:37 10: 11:55 Temperature 98.6 F Pulse Rate 99 H 101 H Respiratory 20 Rate Blood Pressure 117/76 Blood Pressure 127/77 [Right] O2 Sat by Pulse 90 96 Oximetry Constitutional: no acute distress, alert Eyes: non-icteric ENT: oropharynx moist Neck: supple, no lymphadenopathy, no JVD Effort: mildly labored Ascultation: Bilateral: rhonchi Percussion: Bilateral: not dull Cardiovascular: regular rate and rhythm Gastrointestinal: normoactive bowel sounds, soft, non-tender, non-distended (protuberant) Integumentary: normal Extremities: no cyanosis, no edema Neurologic: normal mental status, non-focal exam, pupils equal and round, CN II- XII normal Psychiatric: mood appropriate, affect normal CBC and BMP: 04/11/21 05:47 04/11/21 05:47 ABG, PT/INR, D-dimer: ABG ABG pH 7.455 pH Units (7.350-7.450) H 04/06/21 11:40 POC ABG pCO2 42.0 mmHg (32.0-48.0) 03/29/21 20:03 ABG pCO2 39.3 mm Hg 04/06/21 11:40 POC ABG pO2 51.4 mmHg (83-108) L 03/29/21 20:03 ABG pO2 69.0 mm Hg (80.0-90.0) L 04/06/21 11:40 POC ABG HCO3 18.6 03/29/21 20:03 ABG O2 Saturation 93.7 % (95.0-99.0) L 04/06/21 11:40 PT/INR, D-dimer PT 13.2 Sec. (12.2-14.9) 03/28/21 Unknown INR 0.95 (0.87-1.13) 03/28/21 Unknown D-Dimer 8753.33 ng/mlDDU (0-234) H 04/06/21 05:03 Abnormal lab findings: Abnormal Labs 03/28/21 03/28/21 03/28/21 08:26 09:25 09:25 WBC RDW Plt Count Lymph % (Auto) [place] % (Auto) Lymph # (Auto) [place] # (Auto) Baso # (Auto) Seg Neutrophils % Lymphocytes % (Manual) Seg Neutrophils # Seg Neutrophils # Man Lymphocytes # (Manual) APTT D-Dimer 1100.30 H ABG pH POC ABG pO2 ABG pO2 ABG HCO3 ABG O2 Saturation ABG Hemoglobin ABG Oxyhemoglobin ABG Glucose Oxyhemoglobin Carbon Dioxide BUN Creatinine Glucose 109 H POC Glucose Magnesium 2.40 H Ferritin AST Lactate Dehydrogenase 677 H C-Reactive Protein 13.70 H Albumin Arterial Blood Glucose Arterial Blood Ionized Calcium Ur Specific [place] Coronavirus (PCR) 03/28/21 03/28/21 03/28/21 09:25 Unknown Unknown WBC RDW Plt Count 96 L Lymph % (Auto) 7.2 L [place] % (Auto) 10.8 H Lymph # (Auto) 0.5 L [place] # (Auto) Baso # (Auto) Seg Neutrophils % 81.8 H Lymphocytes % (Manual) Seg Neutrophils # Seg Neutrophils # Man Lymphocytes # (Manual) APTT D-Dimer ABG pH POC ABG pO2 ABG pO2 ABG HCO3 ABG O2 Saturation ABG Hemoglobin ABG Oxyhemoglobin ABG Glucose Oxyhemoglobin Carbon Dioxide BUN Creatinine Glucose POC Glucose Magnesium Ferritin 1340.0 H AST Lactate Dehydrogenase C-Reactive Protein Albumin Arterial Blood Glucose Arterial Blood Ionized Calcium Ur Specific [place] 1.038 H Coronavirus (PCR) 03/28/21 03/28/21 03/28/21 Unknown Unknown Unknown WBC RDW Plt Count Lymph % (Auto) [place] % (Auto) Lymph # (Auto) [place] # (Auto) Baso # (Auto) Seg Neutrophils % Lymphocytes % (Manual) Seg Neutrophils # Seg Neutrophils # Man Lymphocytes # (Manual) APTT 38.7 H D-Dimer ABG pH POC ABG pO2 ABG pO2 ABG HCO3 ABG O2 Saturation ABG Hemoglobin ABG Oxyhemoglobin ABG Glucose Oxyhemoglobin Carbon Dioxide BUN Creatinine Glucose 120 H POC Glucose Magnesium Ferritin AST 73 H Lactate Dehydrogenase C-Reactive Protein Albumin 3.4 L Arterial Blood Glucose Arterial Blood Ionized Calcium Ur Specific [place] Coronavirus (PCR) Positive A 03/29/21 03/29/21 03/29/21 02:30 02:30 02:30 WBC RDW 15.4 H Plt Count 107 L Lymph % (Auto) 5.6 L [place] % (Auto) 10.0 H Lymph # (Auto) 0.4 L [place] # (Auto) Baso # (Auto) Seg Neutrophils % 84.2 H Lymphocytes % (Manual) Seg Neutrophils # Seg Neutrophils # Man Lymphocytes # (Manual) APTT D-Dimer ABG pH POC ABG pO2 ABG pO2 ABG HCO3 ABG O2 Saturation ABG Hemoglobin ABG Oxyhemoglobin ABG Glucose Oxyhemoglobin Carbon Dioxide BUN Creatinine Glucose 128 H POC Glucose Magnesium 2.60 H Ferritin AST 64 H Lactate Dehydrogenase C-Reactive Protein Albumin 3.1 L Arterial Blood Glucose Arterial Blood Ionized Calcium Ur Specific [place] Coronavirus (PCR) 03/29/21 03/29/21 03/29/21 15:30 19:48 20:03 WBC RDW Plt Count Lymph % (Auto) [place] % (Auto) Lymph # (Auto) [place] # (Auto) Baso # (Auto) Seg Neutrophils % Lymphocytes % (Manual) Seg Neutrophils # Seg Neutrophils # Man Lymphocytes # (Manual) APTT D-Dimer ABG pH 7.264 L POC ABG pO2 51.4 L ABG pO2 ABG HCO3 ABG O2 Saturation ABG Hemoglobin ABG Oxyhemoglobin 77.6 L ABG Glucose 275 H Oxyhemoglobin Carbon Dioxide 21 L BUN Creatinine Glucose 125 H POC Glucose 189 H Magnesium Ferritin AST 64 H Lactate Dehydrogenase C-Reactive Protein Albumin 2.8 L Arterial Blood Glucose 275 H Arterial Blood Ionized Calcium 4.5 L Ur Specific [place] Coronavirus (PCR) 03/30/21 03/31/21 03/31/21 06:07 07:38 07:38 WBC 11.8 H RDW 15.4 H Plt Count Lymph % (Auto) 2.4 L [place] % (Auto) 8.4 H Lymph # (Auto) 0.3 L [place] # (Auto) 1.0 H Baso # (Auto) Seg Neutrophils % 89.0 H Lymphocytes % (Manual) Seg Neutrophils # 10.5 H Seg Neutrophils # Man Lymphocytes # (Manual) APTT D-Dimer > 56958 H ABG pH POC ABG pO2 ABG pO2 ABG HCO3 ABG O2 Saturation ABG Hemoglobin ABG Oxyhemoglobin ABG Glucose Oxyhemoglobin Carbon Dioxide BUN Creatinine Glucose 131 H POC Glucose Magnesium Ferritin AST 49 H Lactate Dehydrogenase C-Reactive Protein Albumin 2.7 L Arterial Blood Glucose Arterial Blood Ionized Calcium Ur Specific [place] Coronavirus (PCR) 03/31/21 03/31/21 04/01/21 07:38 07:38 06:37 WBC RDW Plt Count Lymph % (Auto) [place] % (Auto) Lymph # (Auto) [place] # (Auto) Baso # (Auto) Seg Neutrophils % Lymphocytes % (Manual) Seg Neutrophils # Seg Neutrophils # Man Lymphocytes # (Manual) APTT D-Dimer ABG pH POC ABG pO2 ABG pO2 ABG HCO3 ABG O2 Saturation ABG Hemoglobin ABG Oxyhemoglobin ABG Glucose Oxyhemoglobin Carbon Dioxide BUN Creatinine 0.7 L 0.7 L Glucose 122 H 117 H POC Glucose Magnesium Ferritin 1419.0 H AST 42 H 53 H Lactate Dehydrogenase 752 H C-Reactive Protein 4.40 H Albumin 2.9 L 3.2 L Arterial Blood Glucose Arterial Blood Ionized Calcium Ur Specific [place] Coronavirus (PCR) 04/02/21 04/02/21 04/02/21 05:57 05:57 05:57 WBC 13.6 H RDW 15.7 H Plt Count Lymph % (Auto) 2.3 L [place] % (Auto) 10.5 H Lymph # (Auto) 0.3 L [place] # (Auto) 1.4 H Baso # (Auto) 0.2 H Seg Neutrophils % 86.0 H Lymphocytes % (Manual) Seg Neutrophils # 11.7 H Seg Neutrophils # Man Lymphocytes # (Manual) APTT D-Dimer > 75142 H ABG pH POC ABG pO2 ABG pO2 ABG HCO3 ABG O2 Saturation ABG Hemoglobin ABG Oxyhemoglobin ABG Glucose Oxyhemoglobin Carbon Dioxide BUN 22 H Creatinine 0.7 L Glucose 149 H POC Glucose Magnesium Ferritin AST 42 H Lactate Dehydrogenase 811 H C-Reactive Protein 2.00 H Albumin 3.0 L Arterial Blood Glucose Arterial Blood Ionized Calcium Ur Specific [place] Coronavirus (PCR) 04/02/21 04/02/21 04/03/21 05:57 21:00 05:56 WBC RDW Plt Count Lymph % (Auto) [place] % (Auto) Lymph # (Auto) [place] # (Auto) Baso # (Auto) Seg Neutrophils % Lymphocytes % (Manual) Seg Neutrophils # Seg Neutrophils # Man Lymphocytes # (Manual) APTT D-Dimer > 25277 H ABG pH POC ABG pO2 ABG pO2 ABG HCO3 ABG O2 Saturation ABG Hemoglobin ABG Oxyhemoglobin ABG Glucose Oxyhemoglobin Carbon Dioxide BUN Creatinine Glucose POC Glucose 160 H Magnesium Ferritin 1180.0 H AST Lactate Dehydrogenase C-Reactive Protein Albumin Arterial Blood Glucose Arterial Blood Ionized Calcium Ur Specific [place] Coronavirus (PCR) 04/03/21 04/06/21 04/06/21 05:56 05:03 05:03 WBC 11.7 H RDW 15.6 H Plt Count Lymph % (Auto) [place] % (Auto) Lymph # (Auto) [place] # (Auto) Baso # (Auto) Seg Neutrophils % Lymphocytes % (Manual) 1.0 L Seg Neutrophils # Seg Neutrophils # Man 11.2 H Lymphocytes # (Manual) 0.1 L APTT D-Dimer 8753.33 H ABG pH POC ABG pO2 ABG pO2 ABG HCO3 ABG O2 Saturation ABG Hemoglobin ABG Oxyhemoglobin ABG Glucose Oxyhemoglobin Carbon Dioxide BUN Creatinine Glucose POC Glucose Magnesium Ferritin 1117.0 H AST Lactate Dehydrogenase C-Reactive Protein Albumin Arterial Blood Glucose Arterial Blood Ionized Calcium Ur Specific [place] Coronavirus (PCR) 04/06/21 04/06/21 04/10/21 05:03 11:40 02:30 WBC RDW Plt Count Lymph % (Auto) [place] % (Auto) Lymph # (Auto) [place] # (Auto) Baso # (Auto) Seg Neutrophils % Lymphocytes % (Manual) Seg Neutrophils # Seg Neutrophils # Man Lymphocytes # (Manual) APTT D-Dimer ABG pH 7.455 H POC ABG pO2 ABG pO2 69.0 L ABG HCO3 27.0 H ABG O2 Saturation 93.7 L ABG Hemoglobin 13.8 L ABG Oxyhemoglobin ABG Glucose Oxyhemoglobin 93.3 L Carbon Dioxide 31 H BUN 22 H Creatinine 0.7 L Glucose 145 H POC Glucose Magnesium 2.50 H Ferritin AST Lactate Dehydrogenase C-Reactive Protein Albumin Arterial Blood Glucose Arterial Blood Ionized Calcium Ur Specific [place] Coronavirus (PCR) Allied health notes reviewed: nursing
--- NOTE | 2021-04-10 13:36 | Progress Note ---
Assessment and Plan Assessment and plan: 58-year-old male with past medical history of hypertension, congestive heart failure, [place] 18 years ago presenting for complaint of shortness of breath of onset last Friday. Patient states that over the course the last 2 days his symptoms progressively worsened. He had associated symptoms of fever, dry cough, poor p.o. intake, diarrhea and generalized weakness. Ongoing evaluation and treatment for covid pneumonia Acute hypoxic respiratory failure COVID-19 pneumonia Sepsis. Present on admission. Patient met criteria given the fever, tachycardia and diagnosis of pneumonia. Transaminitis. Etiology secondary to sepsis. Chronic CHF. Hypertension. Hyperlipidemia. History of rheumatoid arthritis. Peripheral neuropathy. Hospital Course: 03/29/2021: Cardiology evaluated patient due to 5 beats NSVT. Increased coreg, continue entresto. Patient follows with Dr Martinez. ID evaluated patient, Remdesivir started. Will continue supportive care. 03/30/2021: Respiratory distress overnight. LIkely an allergic reaction to remdesivir. Remdesivir has since been discontinued. Was on BIPAP on encounter and has since been dropped to 15 l/min salter nc. Continue supportive management. Will order inflammatory markers. 03/31/2021: Remains on salter nc 15l /min. sats 88-90% but in no distress. Continue supporitve management. Increased steroids to 60 q6hr. Obtained Pu lmonology consult. CXR ordered, will follow. 04/01/2021: Remains on salter nc 12l /min. sats 88-90% but in no distress. Titrate down O2 requirements, ok with sats > 88%. Continue supporitve management . Lasix 20 mg IV x 1 ordered. 04/02/2021: Remains on salter nc 12l /min. Able to ambulate without any distress but does desaturate to 78%. Sats 88-90% when resting. Titrate down O2 requirements, ok with sats > 88%. Lasix 40 mg IV twice daily x 2 doses ordered. Continue supportive management 04/03/2021. Remains on salter nc but decreased from 12l /min to 8 L/min. Titrate down O2 requirements, ok with sats > 88%. Continue Lasix as needed 04/04/2021. Patient's oxygen was decreased to 10 L/min but was noted to have desaturation into the 70s. Therefore, patient was placed on 15 L with nonrebre ather. Continue prone positioning as able. Patient has significantly elevated D- dimer. However, Doppler studies and CTA of chest were negative. Continue to trend D-dimer along with other inflammatory markers. Prognosis is guarded 04/05/2021. Patient sitting up in a chair and states that he feels comfortable. Patient previously on nonrebreather plus Salter nasal cannula 15 L FiO2 100% which has now been weaned to 8 L. Continue prone positioning as possible. Repeat D-dimer on 04/03 was still greater than 10,000 but CTA of chest and Doppler studies of lower extremities were negative. Recheck D-dimer in a.m. 04/06/2021. D-dimer is slightly decreased to ~8700. Patient remains on salter nasal cannula 8 L/min. Continue prone positioning as possible. Continue to trend inflammatory markers. 04/07/2021. Patient remains on salter nasal cannula 8 L/min. Continue prone positioning as possible. Continue to trend inflammatory markers. PT/OT. Exercise pulse oximetry testing at discharge. 04/08/2021. Patient remains on salter nasal cannula increased to 10 L/min. Continue prone positioning as possible. Continue to trend inflammatory markers. Continue IV Solu-Medrol per pulmonary recommendations. BG is stable. 04/09/2021. Patient remains on salter nasal cannula increased to 10 L/min. Continue prone positioning as possible. Continue to trend inflammatory markers. Continue IV Solu-Medrol per pulmonary recommendations. BG is stable. 04/10/2021 Patient with Covid-19 with acute resp failure . Still on Oxygen at 10 l/min. Continue current. Repeat labs in am. History Interval history: Shortness of breath on exertion Hospitalist Physical - Physical exam Narrative exam: Gen: Not in acute distress, lying in bed, On Oxygen by NC,obese HEENT: Normocephalic, atraumatic Lungs: Bilateral rales, no wheeze Heart: S1 and S2 reg, no murmurs, rubs or gallop Abd:soft, non-tender, non distended, normal bowel sounds Ext: No edema, clubbing or cyanosis Neuro: Awake, alert, oriented X 3, moves all extremities - Constitutional Vitals: Temp Pulse Resp BP Pulse Ox 98.6 F 101 H 20 127/77 96 04/10/21 11:55 04/10/21 11:55 04/10/21 11:55 04/10/21 11:55 04/10/21 11:55 General appearance: Present: no acute distress HEART Score - HEART Score Troponin: Troponin T 0.013 ng/mL (0.00-0.029) 03/28/21 Unknown Results - Labs CBC & Chem 7: 04/06/21 05:03 04/10/21 02:30 Labs: Laboratory Last Values WBC 11.7 K/mm3 (4.5-11.0) H 04/06/21 05:03 RBC 4.04 M/mm3 (3.65-5.03) 04/06/21 05:03 Hgb 12.3 gm/dl (11.8-15.2) 04/06/21 05:03 Hct 36.4 % (35.5-45.6) 04/06/21 05:03 MCV 90 fl (84-94) 04/06/21 05:03 MCH 31 pg (28-32) 04/06/21 05:03 MCHC 34 % (32-34) 04/06/21 05:03 RDW 15.6 % (13.2-15.2) H 04/06/21 05:03 Plt Count 184 K/mm3 (140-440) 04/06/21 05:03 Lymph % (Auto) 2.3 % (13.4-35.0) L 04/02/21 05:57 [place] % (Auto) 10.5 % (0.0-7.3) H 04/02/21 05:57 Eos % (Auto) 0.0 % (0.0-4.3) 04/02/21 05:57 Baso % (Auto) 1.2 % (0.0-1.8) 04/02/21 05:57 Lymph # (Auto) 0.3 K/mm3 (1.2-5.4) L 04/02/21 05:57 [place] # (Auto) 1.4 K/mm3 (0.0-0.8) H 04/02/21 05:57 Eos # (Auto) 0.0 K/mm3 (0.0-0.4) 04/02/21 05:57 Baso # (Auto) 0.2 K/mm3 (0.0-0.1) H 04/02/21 05:57 Add Manual Diff Complete 04/06/21 05:03 Total Counted 100 04/06/21 05:03 Seg Neutrophils % Yarn 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 Operator 04/06/21 05:03 Band Neutrophils % 1.0 % 04/06/21 05:03 Lymphocytes % (Manual) 1.0 % (13.4-35.0) L 04/06/21 05:03 Monocytes % (Manual) 2.0 % (0.0-7.3) 04/06/21 05:03 Nucleated RBC % Not Reportable 04/06/21 05:03 Seg Neutrophils # 11.7 K/mm3 (1.8-7.7) H 04/02/21 05:57 Seg Neutrophils # Man 11.2 K/mm3 (1.8-7.7) H 04/06/21 05:03 Band Neutrophils # 0.1 K/mm3 04/06/21 05:03 Lymphocytes # (Manual) 0.1 K/mm3 (1.2-5.4) L 04/06/21 05:03 Abs React Lymphs (Man) 0.0 K/mm3 04/06/21 05:03 Monocytes # (Manual) 0.2 K/mm3 (0.0-0.8) 04/06/21 05:03 Eosinophils # (Manual) 0.0 K/mm3 (0.0-0.4) 04/06/21 05:03 Basophils # (Manual) 0.0 K/mm3 (0.0-0.1) 04/06/21 05:03 Metamyelocytes # 0.0 K/mm3 04/06/21 05:03 Myelocytes # 0.0 K/mm3 04/06/21 05:03 Promyelocytes # 0.0 K/mm3 04/06/21 05:03 Blast Cells # 0.0 K/mm3 04/06/21 05:03 WBC Morphology Not Reportable 04/06/21 05:03 Hypersegmented Neuts Not Reportable 04/06/21 05:03 Hyposegmented Neuts Not Reportable 04/06/21 05:03 Hypogranular Neuts Not Reportable 04/06/21 05:03 Smudge Cells Not Reportable 04/06/21 05:03 Toxic Granulation Not Reportable 04/06/21 05:03 Toxic Vacuolation Not Reportable 04/06/21 05:03 Dohle Bodies Not Reportable 04/06/21 05:03 Pelger-Huet Anomaly Not Reportable 04/06/21 05:03 Adan Rods Not Reportable 04/06/21 05:03 Platelet Estimate Consistent w auto 04/06/21 05:03 Clumped Platelets Not Reportable 04/06/21 05:03 Plt Clumps, EDTA Not Reportable 04/06/21 05:03 Large Platelets Not Reportable 04/06/21 05:03 Giant Platelets Not Reportable 04/06/21 05:03 Platelet Satelliting Not Reportable 04/06/21 05:03 Plt Morphology Comment Not Reportable 04/06/21 05:03 RBC Morphology Not Reportable 04/06/21 05:03 Dimorphic RBCs Not Reportable 04/06/21 05:03 Polychromasia Not Reportable 04/06/21 05:03 Hypochromasia Not Reportable 04/06/21 05:03 Poikilocytosis 1+ 04/06/21 05:03 Anisocytosis Not Reportable 04/06/21 05:03 Microcytosis Not Reportable 04/06/21 05:03 Macrocytosis Not Reportable 04/06/21 05:03 Spherocytes Not Reportable 04/06/21 05:03 Pappenheimer Bodies Not Reportable 04/06/21 05:03 Sickle Cells Not Reportable 04/06/21 05:03 Target Cells Not Reportable 04/06/21 05:03 Tear Drop Cells Not Reportable 04/06/21 05:03 Ovalocytes Not Reportable 04/06/21 05:03 Helmet Cells Not Reportable 04/06/21 05:03 [place] Bodies Not Reportable 04/06/21 05:03 [place] Rings Not Reportable 04/06/21 05:03 [place] Cells Not Reportable 04/06/21 05:03 Bite Cells Not Reportable 04/06/21 05:03 Crenated Cell Not Reportable 04/06/21 05:03 Elliptocytes Not Reportable 04/06/21 05:03 Acanthocytes (Spur) Not Reportable 04/06/21 05:03 Rouleaux Not Reportable 04/06/21 05:03 Hemoglobin C Crystals Not Reportable 04/06/21 05:03 Schistocytes Not Reportable 04/06/21 05:03 Malaria parasites Not Reportable 04/06/21 05:03 Luke Bodies Not Reportable 04/06/21 05:03 Hem Pathologist Commnt No 04/06/21 05:03 PT 13.2 Sec. (12.2-14.9) 03/28/21 Unknown INR 0.95 (0.87-1.13) 03/28/21 Unknown APTT 38.7 Sec. (24.2-36.6) H 03/28/21 Unknown D-Dimer 8753.33 ng/mlDDU (0-234) H 04/06/21 05:03 ABG pH 7.455 pH Units (7.350-7.450) H 04/06/21 11:40 POC ABG pCO2 42.0 mmHg (32.0-48.0) 03/29/21 20:03 ABG pCO2 39.3 mm Hg 04/06/21 11:40 POC ABG pO2 51.4 mmHg (83-108) L 03/29/21 20:03 ABG pO2 69.0 mm Hg (80.0-90.0) L 04/06/21 11:40 POC ABG HCO3 18.6 03/29/21 20:03 ABG HCO3 27.0 mmol/L (20.0-26.0) H 04/06/21 11:40 ABG O2 Saturation 93.7 % (95.0-99.0) L 04/06/21 11:40 ABG O2 Content 18.1 (0.0-44) 04/06/21 11:40 POC ABG Base Excess -8.0 03/29/21 20:03 ABG Base Excess 3.0 mmol/L (-2.0-3.0) 04/06/21 11:40 ABG Hemoglobin 13.8 gm/dl (14.0-18.0) L 04/06/21 11:40 ABG Oxyhemoglobin 77.6 (94-98) L 03/29/21 20:03 ABG Carboxyhemoglobin 0.4 % (0.0-5.0) 04/06/21 11:40 ABG Methemoglobin Not Reportable 04/06/21 11:40 ABG Sodium 136.8 mmol/L (136.0-145.0) 03/29/21 20:03 ABG Potassium 4.0 mmol/L (3.40-4.50) 03/29/21 20:03 ABG Chloride 104.0 mmol/L (98-107) 03/29/21 20:03 ABG Glucose 275 mg/dL (65-95) H 03/29/21 20:03 Oxyhemoglobin 93.3 % (95.0-99.0) L 04/06/21 11:40 Carboxyhemoglobin 1.5 (0.5-1.5) 03/29/21 20:03 FiO2 21 % 04/06/21 11:40 FiO2 % 100.0 03/29/21 20:03 Sodium 138 mmol/L (137-145) 04/06/21 05:03 Potassium 4.9 mmol/L (3.6-5.0) 04/10/21 02:30 Chloride 103.1 mmol/L (98-107) 04/06/21 05:03 Carbon Dioxide 31 mmol/L (22-30) H 04/06/21 05:03 Anion Gap 8 mmol/L 04/06/21 05:03 BUN 22 mg/dL (9-20) H 04/06/21 05:03 Creatinine 0.7 mg/dL (0.8-1.3) L 04/06/21 05:03 Estimated GFR > 60 ml/min 04/06/21 05:03 BUN/Creatinine Ratio 31 % 04/06/21 05:03 Glucose 145 mg/dL (75-100) H 04/06/21 05:03 POC Glucose 160 mg/dL (70-105) H 04/02/21 21:00 Lactic Acid 1.60 mmol/L (0.7-2.0) 03/28/21 Unknown Calcium 8.6 mg/dL (8.4-10.2) 04/06/21 05:03 Magnesium 2.50 mg/dL (1.7-2.3) H 04/10/21 02:30 Ferritin 1117.0 ng/mL (30.0-300.0) H 04/03/21 05:56 Total Bilirubin 0.90 mg/dL (0.1-1.2) 04/02/21 05:57 AST 42 units/L (5-40) H 04/02/21 05:57 ALT 32 units/L (7-56) 04/02/21 05:57 Alkaline Phosphatase 85 units/L (35-129) 04/02/21 05:57 Lactate Dehydrogenase 811 units/L (91-180) H 04/02/21 05:57 Troponin T 0.013 ng/mL (0.00-0.029) 03/28/21 Unknown C-Reactive Protein 1.20 mg/dL (0.00-1.30) 04/03/21 05:56 Total Protein 6.6 g/dL (6.3-8.2) 04/02/21 05:57 Albumin 3.0 g/dL (3.9-5) L 04/02/21 05:57 Albumin/Globulin Ratio 0.8 % 04/02/21 05:57 Procalcitonin 0.37 ng/mL (<0.15) 03/28/21 09:25 Arterial Blood Glucose 275 mg/dL (65-95) H 03/29/21 20:03 Arterial Blood Ionized Calcium 4.5 mg/dL (4.6-5.3) L 03/29/21 20:03 Urine Color [place] (Yellow) 03/28/21 Unknown Urine Turbidity Clear (Clear) 03/28/21 Unknown Urine pH 5.0 (5.0-7.0) 03/28/21 Unknown Ur Specific [place] 1.038 (1.003-1.030) H 03/28/21 Unknown Urine Protein >500 mg/dL (Negative) 03/28/21 Unknown Urine Glucose (UA) 50 mg/dL (Negative) 03/28/21 Unknown Urine Ketones Tr mg/dL (Negative) 03/28/21 Unknown Urine Blood Mod (Negative) 03/28/21 Unknown Urine Nitrite Neg (Negative) 03/28/21 Unknown Urine Bilirubin Neg (Negative) 03/28/21 Unknown Urine Urobilinogen 2.0 mg/dL (<2.0) 03/28/21 Unknown Ur Leukocyte Esterase Neg (Negative) 03/28/21 Unknown Urine WBC (Auto) 6.0 /HPF (0.0-6.0) 03/28/21 Unknown Urine RBC (Auto) 2.0 /HPF (0.0-6.0) 03/28/21 Unknown U Epithel Cells (Auto) < 1.0 /HPF (0-13.0) 03/28/21 Unknown Urine Mucus Few /HPF 03/28/21 Unknown Coronavirus (PCR) Positive (Negative) A 03/28/21 Unknown [place]/IV: Voiding Method Toilet Active Medications - Current Medications Current Medications: Generic Name Dose Route Start Last Admin Trade Name Freq PRN Reason Stop Dose Admin Acetaminophen 650 mg 03/28/21 12:45 Acetaminophen 325 Mg Tab PO Q4H PRN Pain MILD(1-3)/Fever >100.5/MIRANDA Albuterol 2.5 mg 04/08/21 11:23 Albuterol 2.5 Mg/3 Ml Nebu IH Q4H PRN Shortness of breath. Arformoterol Tartrate 15 mcg 04/08/21 20:00 04/09/21 19:17 Arformoterol 15 Mcg/2 Ml Nebu IH 15 mcg Q12HRT LISSETTE Administration Aspirin 81 mg 03/29/21 10:00 04/10/21 10:15 Aspirin 81 Mg Tab Chew PO 81 mg QDAY LISSETTE Administration Benzonatate 100 mg 03/29/21 07:00 04/10/21 05:21 Benzonatate 100 Mg Cap PO 100 mg Q8HR LISSETTE Administration Budesonide 0.5 mg 04/08/21 20:00 04/09/21 19:18 Budesonide 0.5 Mg/2 Ml Nebu IH 0.5 mg Q12HRT LISSETTE Administration Carvedilol 25 mg 03/29/21 10:00 04/10/21 10:21 Carvedilol 25 Mg Tab PO 25 mg Q12HR LISSETTE Administration Enoxaparin Sodium 40 mg 03/28/21 14:00 04/10/21 10:15 Enoxaparin 40 Mg/0.4 Ml Inj SUB-Q 40 mg DAILY LISSETTE Administration Protocol Gabapentin 300 mg 03/29/21 18:00 04/09/21 17:34 Gabapentin 300 Mg Cap PO 300 mg QPM LISSETTE Administration Labetalol HCl 10 mg 03/28/21 15:34 Labetalol 20 Mg/4 Ml Inj IV Q6HR PRN sbp > 160, hold for hr < 70 Miscellaneous Medication 20 mg 03/29/21 10:00 Leflunomide PO DAILY LISSETTE Ondansetron HCl 4 mg 03/28/21 12:45 Ondansetron 4 Mg/2 Ml Inj IV Q8H PRN Nausea And Vomiting Oxycodone/Acetaminophen 1 tab 03/28/21 12:45 04/01/21 10:36 Oxycodone /Acetaminophen 5-325mg Tab PO 1 tab Q6H PRN Administration Pain, Moderate (4-6) Pravastatin Sodium 40 mg 03/29/21 22:00 04/09/21 22:49 Pravastatin 40 Mg Tab PO 40 mg QHS LISSETTE Administration Sodium Chloride 10 ml 03/28/21 22:00 04/10/21 10:15 Sodium Chloride 0.9% 10 Ml Flush Syringe IV 10 ml BID LISSETTE Administration Sodium Chloride 10 ml 03/28/21 12:45 Sodium Chloride 0.9% 10 Ml Flush Syringe IV PRN PRN LINE FLUSH Nutrition/Malnutrition Assess - Dietary Evaluation Nutrition/Malnutrition Findings: Nutrition Notes Start: 03/29/21 14:40 Freq: Status: Active Protocol: Document 04/10/21 12:13 JADEN (Rec: 04/10/21 12:41 JADEN [id number]) Nutrition Notes Need for Assessment generated from: road maker Initial or Follow up Reassessment Current Diagnosis Heart Failure Other Pertinent Diagnosis Pneumonia, possible assoc w/ COVID-19 Current Diet Cardiac Diet, since 03/28. Labs/Tests 04/06: CO2 31, BUN 22, Cr 0.7, Glu 145. Pertinent Medications 04/10: Reviewed. Height 5 ft 5 in Weight 86.5 kg [place] Body Weight (kg) 61.81 BMI 31.7 Intake Prior to Admission Excellent Weight Status Obese Subjective/Other Information Pt reported lack of appetite and diarrhea upon admission, but since, has improved. Currently Pt with regular BM. Percent of energy/protein needs met: Prescribed Cardiac Diet provides with energy/protein needs during LOS (2230 Kcal/ 85 g). Burn Absent Trauma Absent GI Symptoms None Food Allergy No Skin Integrity/Comment Integumentary; clear,warm,dry. Current % PO Good (75-100%) Minimum of two criteria No physical signs of malnutrition #1 Nutrition Diagnosis No nutrition diagnosis at this time Comments: Pt reported increased appetite and tolerance of food; currently, 100% of meals intake. Diagnosis Progress(for reassessment Improved documentation) Is patient on ventilator? No Is Patient Ambulatory and/or Out of Bed Yes REE-([place]-St. Jeor-ambulatory/OOB) [ 2030.444 [id number]] Kcal/Kg value to use for calculation 26 Approximate Energy Requirements Using 2249 kcal/Kg Calculation Used for Recommendations Kcal/kg Additional Notes Protein: 1.0-1.2 g/Kg/day; 62- 75 g/day; 248-300 Kcal/day ( from IBW). Fluids: 1.0 ml/kcal/day, or as per MD. Nutrition Intervention Change Diet Order: continue Cardiac Diet during LOS. Goal #1 Maintain body weight within +/ -3% of current BWt during LOS. Goal #2 Reach and maintain acceptable chemistry lab values during LOS. Follow-Up By: 04/17/21 Additional Comments Continue monitoring % of meals PO intake, acceptance of food , and BM.
[2021-04-10] MEDS: GABAPENTIN 300 MG CAP PO SCH (17:40)
[2021-04-10] MEDS: PRAVASTATIN 40 MG TAB PO SCH (22:25)
[2021-04-11] MEDS: BENZONATATE 100 MG CAP PO SCH ×3 (05:53→22:40)
[2021-04-11 06:16] LABS: Hematocrit 37.9 % (35.5-45.6); Hemoglobin 12.9 gm/dl (11.8-15.2); Mean Corpuscular HGB Conc 34 % (32-34); Mean Corpuscular Volume 91 fl (84-94); Platelet Count 123 K/mm3 (140-440); Red Blood Count 4.16 M/mm3 (3.65-5.03); Red Cell Distribution Width 16.1 % (13.2-15.2)
[2021-04-11 06:49] LABS: BUN/Creatinine Ratio 16; Blood Urea Nitrogen 18 mg/dL (9-20); Calcium 8.3 mg/dL (8.4-10.2); Hemolysis Index 2
[2021-04-11] MEDS: BUDESONIDE 0.5 MG/2 ML NEBU IH SCH (09:41)
[2021-04-11] MEDS: ARFORMOTEROL 15 MCG/2 ML NEBU IH SCH (09:42)
[2021-04-11] MEDS: ENOXAPARIN 40 MG/0.4 ML INJ SUB-Q SCH (10:02)
[2021-04-11] MEDS: ASPIRIN 81 MG TAB CHEW PO SCH (10:02)
[2021-04-11] MEDS: SACUBITRIL/VALSARTAN 49-51 MG TAB PO SCH ×2 (10:20→22:48)
[2021-04-11] MEDS: carvediloL 25 MG TAB PO SCH (10:20)
--- NOTE | 2021-04-11 13:23 | Progress Note ---
Assessment and Plan Assessment and plan: 58-year-old male with past medical history of hypertension, congestive heart failure, [place] 18 years ago presenting for complaint of shortness of breath of onset last Friday. Patient states that over the course the last 2 days his symptoms progressively worsened. He had associated symptoms of fever, dry cough, poor p.o. intake, diarrhea and generalized weakness. Ongoing evaluation and treatment for covid pneumonia Acute hypoxic respiratory failure COVID-19 pneumonia Sepsis. Present on admission. Patient met criteria given the fever, tachycardia and diagnosis of pneumonia. Transaminitis. Etiology secondary to sepsis. Chronic CHF. Hypertension. Hyperlipidemia. History of rheumatoid arthritis. Peripheral neuropathy. Hospital Course: 03/29/2021: Cardiology evaluated patient due to 5 beats NSVT. Increased coreg, continue entresto. Patient follows with Dr Martinez. ID evaluated patient, Remdesivir started. Will continue supportive care. 03/30/2021: Respiratory distress overnight. LIkely an allergic reaction to remdesivir. Remdesivir has since been discontinued. Was on BIPAP on encounter and has since been dropped to 15 l/min salter nc. Continue supportive management. Will order inflammatory markers. 03/31/2021: Remains on salter nc 15l /min. sats 88-90% but in no distress. Continue supporitve management. Increased steroids to 60 q6hr. Obtained Pu lmonology consult. CXR ordered, will follow. 04/01/2021: Remains on salter nc 12l /min. sats 88-90% but in no distress. Titrate down O2 requirements, ok with sats > 88%. Continue supporitve management . Lasix 20 mg IV x 1 ordered. 04/02/2021: Remains on salter nc 12l /min. Able to ambulate without any distress but does desaturate to 78%. Sats 88-90% when resting. Titrate down O2 requirements, ok with sats > 88%. Lasix 40 mg IV twice daily x 2 doses ordered. Continue supportive management 04/03/2021. Remains on salter nc but decreased from 12l /min to 8 L/min. Titrate down O2 requirements, ok with sats > 88%. Continue Lasix as needed 04/04/2021. Patient's oxygen was decreased to 10 L/min but was noted to have desaturation into the 70s. Therefore, patient was placed on 15 L with nonrebre ather. Continue prone positioning as able. Patient has significantly elevated D- dimer. However, Doppler studies and CTA of chest were negative. Continue to trend D-dimer along with other inflammatory markers. Prognosis is guarded 04/05/2021. Patient sitting up in a chair and states that he feels comfortable. Patient previously on nonrebreather plus Salter nasal cannula 15 L FiO2 100% which has now been weaned to 8 L. Continue prone positioning as possible. Repeat D-dimer on 04/03 was still greater than 10,000 but CTA of chest and Doppler studies of lower extremities were negative. Recheck D-dimer in a.m. 04/06/2021. D-dimer is slightly decreased to ~8700. Patient remains on salter nasal cannula 8 L/min. Continue prone positioning as possible. Continue to trend inflammatory markers. 04/07/2021. Patient remains on salter nasal cannula 8 L/min. Continue prone positioning as possible. Continue to trend inflammatory markers. PT/OT. Exercise pulse oximetry testing at discharge. 04/08/2021. Patient remains on salter nasal cannula increased to 10 L/min. Continue prone positioning as possible. Continue to trend inflammatory markers. Continue IV Solu-Medrol per pulmonary recommendations. BG is stable. 04/09/2021. Patient remains on salter nasal cannula increased to 10 L/min. Continue prone positioning as possible. Continue to trend inflammatory markers. Continue IV Solu-Medrol per pulmonary recommendations. BG is stable. 04/10/2021 Patient with Covid-19 with acute resp failure . Still on Oxygen at 10 l/min. Continue current. Repeat labs in am. 04/11/2021 Patient with Covid-19 pneumonia with acute resp failure. Now on Oxygen at 6 l/min down from 10 l/min yesterday.. Pulm following. Likely dc home in few days. To obtain ambulatory pulse ox to determine need for Oxygen prior to discharge. History Interval history: Shortness of breath on exertion Hospitalist Physical - Physical exam Narrative exam: Gen: Not in acute distress, lying in bed, On Oxygen by NC,obese HEENT: Normocephalic, atraumatic Lungs: Bilateral rales, no wheeze Heart: S1 and S2 reg, no murmurs, rubs or gallop Abd:soft, non-tender, non distended, normal bowel sounds Ext: No edema, clubbing or cyanosis Neuro: Awake, alert, oriented X 3, moves all extremities - Constitutional Vitals: Temp Pulse Resp BP Pulse Ox 99.5 F 105 H 20 103/70 96 04/10/21 21:14 04/11/21 10:20 04/11/21 09:42 04/11/21 10:20 04/11/21 09:42 General appearance: Present: no acute distress HEART Score - HEART Score Troponin: Troponin T 0.013 ng/mL (0.00-0.029) 03/28/21 Unknown Results - Labs CBC & Chem 7: 04/11/21 05:47 04/11/21 05:47 Labs: Laboratory Last Values WBC 6.0 K/mm3 (4.5-11.0) 04/11/21 05:47 RBC 4.16 M/mm3 (3.65-5.03) 04/11/21 05:47 Hgb 12.9 gm/dl (11.8-15.2) 04/11/21 05:47 Hct 37.9 % (35.5-45.6) 04/11/21 05:47 MCV 91 fl (84-94) 04/11/21 05:47 MCH 31 pg (28-32) 04/11/21 05:47 MCHC 34 % (32-34) 04/11/21 05:47 RDW 16.1 % (13.2-15.2) H 04/11/21 05:47 Plt Count 123 K/mm3 (140-440) L 04/11/21 05:47 Lymph % (Auto) 2.3 % (13.4-35.0) L 04/02/21 05:57 Gilchrist % (Auto) 10.5 % (0.0-7.3) H 04/02/21 05:57 Eos % (Auto) 0.0 % (0.0-4.3) 04/02/21 05:57 Baso % (Auto) 1.2 % (0.0-1.8) 04/02/21 05:57 Lymph # (Auto) 0.3 K/mm3 (1.2-5.4) L 04/02/21 05:57 Gilchrist # (Auto) 1.4 K/mm3 (0.0-0.8) H 04/02/21 05:57 Eos # (Auto) 0.0 K/mm3 (0.0-0.4) 04/02/21 05:57 Baso # (Auto) 0.2 K/mm3 (0.0-0.1) H 04/02/21 05:57 Add Manual Diff Complete 04/06/21 05:03 Total Counted 100 04/06/21 05:03 Seg Neutrophils % Financial Analysis Manager 04/06/21 05:03 Band Neutrophils % 1.0 % 04/06/21 05:03 Lymphocytes % (Manual) 1.0 % (13.4-35.0) L 04/06/21 05:03 Monocytes % (Manual) 2.0 % (0.0-7.3) 04/06/21 05:03 Nucleated RBC % Not Reportable 04/06/21 05:03 Seg Neutrophils # 11.7 K/mm3 (1.8-7.7) H 04/02/21 05:57 Seg Neutrophils # Man 11.2 K/mm3 (1.8-7.7) H 04/06/21 05:03 Band Neutrophils # 0.1 K/mm3 04/06/21 05:03 Lymphocytes # (Manual) 0.1 K/mm3 (1.2-5.4) L 04/06/21 05:03 Abs React Lymphs (Man) 0.0 K/mm3 04/06/21 05:03 Monocytes # (Manual) 0.2 K/mm3 (0.0-0.8) 04/06/21 05:03 Eosinophils # (Manual) 0.0 K/mm3 (0.0-0.4) 04/06/21 05:03 Basophils # (Manual) 0.0 K/mm3 (0.0-0.1) 04/06/21 05:03 Metamyelocytes # 0.0 K/mm3 04/06/21 05:03 Myelocytes # 0.0 K/mm3 04/06/21 05:03 Promyelocytes # 0.0 K/mm3 04/06/21 05:03 Blast Cells # 0.0 K/mm3 04/06/21 05:03 WBC Morphology Not Reportable 04/06/21 05:03 Hypersegmented Neuts Not Reportable 04/06/21 05:03 Hyposegmented Neuts Not Reportable 04/06/21 05:03 Hypogranular Neuts Not Reportable 04/06/21 05:03 Smudge Cells Not Reportable 04/06/21 05:03 Toxic Granulation Not Reportable 04/06/21 05:03 Toxic Vacuolation Not Reportable 04/06/21 05:03 Dohle Bodies Not Reportable 04/06/21 05:03 Pelger-Huet Anomaly Not Reportable 04/06/21 05:03 Adan Rods Not Reportable 04/06/21 05:03 Platelet Estimate Consistent w auto 04/06/21 05:03 Clumped Platelets Not Reportable 04/06/21 05:03 Plt Clumps, EDTA Not Reportable 04/06/21 05:03 Large Platelets Not Reportable 04/06/21 05:03 Giant Platelets Not Reportable 04/06/21 05:03 Platelet Satelliting Not Reportable 04/06/21 05:03 Plt Morphology Comment Not Reportable 04/06/21 05:03 RBC Morphology Not Reportable 04/06/21 05:03 Dimorphic RBCs Not Reportable 04/06/21 05:03 Polychromasia Not Reportable 04/06/21 05:03 Hypochromasia Not Reportable 04/06/21 05:03 Poikilocytosis 1+ 04/06/21 05:03 Anisocytosis Not Reportable 04/06/21 05:03 Microcytosis Not Reportable 04/06/21 05:03 Macrocytosis Not Reportable 04/06/21 05:03 Spherocytes Not Reportable 04/06/21 05:03 Pappenheimer Bodies Not Reportable 04/06/21 05:03 Sickle Cells Not Reportable 04/06/21 05:03 Target Cells Not Reportable 04/06/21 05:03 Tear Drop Cells Not Reportable 04/06/21 05:03 Ovalocytes Not Reportable 04/06/21 05:03 Helmet Cells Not Reportable 04/06/21 05:03 [place] Bodies Not Reportable 04/06/21 05:03 Currie Rings Not Reportable 04/06/21 05:03 Tushar Cells Not Reportable 04/06/21 05:03 Bite Cells Not Reportable 04/06/21 05:03 Crenated Cell Not Reportable 04/06/21 05:03 Elliptocytes Not Reportable 04/06/21 05:03 Acanthocytes (Spur) Not Reportable 04/06/21 05:03 Rouleaux Not Reportable 04/06/21 05:03 Hemoglobin C Crystals Not Reportable 04/06/21 05:03 Schistocytes Not Reportable 04/06/21 05:03 Malaria parasites Not Reportable 04/06/21 05:03 Luke Bodies Not Reportable 04/06/21 05:03 Hem Pathologist Commnt No 04/06/21 05:03 PT 13.2 Sec. (12.2-14.9) 03/28/21 Unknown INR 0.95 (0.87-1.13) 03/28/21 Unknown APTT 38.7 Sec. (24.2-36.6) H 03/28/21 Unknown D-Dimer 8753.33 ng/mlDDU (0-234) H 04/06/21 05:03 ABG pH 7.455 pH Units (7.350-7.450) H 04/06/21 11:40 POC ABG pCO2 42.0 mmHg (32.0-48.0) 03/29/21 20:03 ABG pCO2 39.3 mm Hg 04/06/21 11:40 POC ABG pO2 51.4 mmHg (83-108) L 03/29/21 20:03 ABG pO2 69.0 mm Hg (80.0-90.0) L 04/06/21 11:40 POC ABG HCO3 18.6 03/29/21 20:03 ABG HCO3 27.0 mmol/L (20.0-26.0) H 04/06/21 11:40 ABG O2 Saturation 93.7 % (95.0-99.0) L 04/06/21 11:40 ABG O2 Content 18.1 (0.0-44) 04/06/21 11:40 POC ABG Base Excess -8.0 03/29/21 20:03 ABG Base Excess 3.0 mmol/L (-2.0-3.0) 04/06/21 11:40 ABG Hemoglobin 13.8 gm/dl (14.0-18.0) L 04/06/21 11:40 ABG Oxyhemoglobin 77.6 (94-98) L 03/29/21 20:03 ABG Carboxyhemoglobin 0.4 % (0.0-5.0) 04/06/21 11:40 ABG Methemoglobin Not Reportable 04/06/21 11:40 ABG Sodium 136.8 mmol/L (136.0-145.0) 03/29/21 20:03 ABG Potassium 4.0 mmol/L (3.40-4.50) 03/29/21 20:03 ABG Chloride 104.0 mmol/L (98-107) 03/29/21 20:03 ABG Glucose 275 mg/dL (65-95) H 03/29/21 20:03 Oxyhemoglobin 93.3 % (95.0-99.0) L 04/06/21 11:40 Carboxyhemoglobin 1.5 (0.5-1.5) 03/29/21 20:03 FiO2 21 % 04/06/21 11:40 FiO2 % 100.0 03/29/21 20:03 Sodium 143 mmol/L (137-145) 04/11/21 05:47 Potassium 4.3 mmol/L (3.6-5.0) 04/11/21 05:47 Chloride 107.3 mmol/L (98-107) H 04/11/21 05:47 Carbon Dioxide 25 mmol/L (22-30) 04/11/21 05:47 Anion Gap 15 mmol/L 04/11/21 05:47 BUN 18 mg/dL (9-20) 04/11/21 05:47 Creatinine 1.1 mg/dL (0.8-1.3) 04/11/21 05:47 Estimated GFR > 60 ml/min 04/11/21 05:47 BUN/Creatinine Ratio 16 % 04/11/21 05:47 Glucose 91 mg/dL (75-100) 04/11/21 05:47 POC Glucose 160 mg/dL (70-105) H 04/02/21 21:00 Lactic Acid 1.60 mmol/L (0.7-2.0) 03/28/21 Unknown Calcium 8.3 mg/dL (8.4-10.2) L 04/11/21 05:47 Magnesium 2.50 mg/dL (1.7-2.3) H 04/10/21 02:30 Ferritin 1117.0 ng/mL (30.0-300.0) H 04/03/21 05:56 Total Bilirubin 0.90 mg/dL (0.1-1.2) 04/02/21 05:57 AST 42 units/L (5-40) H 04/02/21 05:57 ALT 32 units/L (7-56) 04/02/21 05:57 Alkaline Phosphatase 85 units/L (35-129) 04/02/21 05:57 Lactate Dehydrogenase 811 units/L (91-180) H 04/02/21 05:57 Troponin T 0.013 ng/mL (0.00-0.029) 03/28/21 Unknown C-Reactive Protein 1.20 mg/dL (0.00-1.30) 04/03/21 05:56 Total Protein 6.6 g/dL (6.3-8.2) 04/02/21 05:57 Albumin 3.0 g/dL (3.9-5) L 04/02/21 05:57 Albumin/Globulin Ratio 0.8 % 04/02/21 05:57 Procalcitonin 0.37 ng/mL (<0.15) 03/28/21 09:25 Arterial Blood Glucose 275 mg/dL (65-95) H 03/29/21 20:03 Arterial Blood Ionized Calcium 4.5 mg/dL (4.6-5.3) L 03/29/21 20:03 Urine Color T[place]ha (Yellow) 03/28/21 Unknown Urine Turbidity Clear (Clear) 03/28/21 Unknown Urine pH 5.0 (5.0-7.0) 03/28/21 Unknown Ur Specific [place] 1.038 (1.003-1.030) H 03/28/21 Unknown Urine Protein >500 mg/dL (Negative) 03/28/21 Unknown Urine Glucose (UA) 50 mg/dL (Negative) 03/28/21 Unknown Urine Ketones Tr mg/dL (Negative) 03/28/21 Unknown Urine Blood Mod (Negative) 03/28/21 Unknown Urine Nitrite Neg (Negative) 03/28/21 Unknown Urine Bilirubin Neg (Negative) 03/28/21 Unknown Urine Urobilinogen 2.0 mg/dL (<2.0) 03/28/21 Unknown Ur Leukocyte Esterase Neg (Negative) 03/28/21 Unknown Urine WBC (Auto) 6.0 /HPF (0.0-6.0) 03/28/21 Unknown Urine RBC (Auto) 2.0 /HPF (0.0-6.0) 03/28/21 Unknown U Epithel Cells (Auto) < 1.0 /HPF (0-13.0) 03/28/21 Unknown Urine Mucus Few /HPF 03/28/21 Unknown Coronavirus (PCR) Positive (Negative) A 03/28/21 Unknown Cooney/IV: Voiding Method Toilet Active Medications - Current Medications Current Medications: Generic Name Dose Route Start Last Admin Trade Name Freq PRN Reason Stop Dose Admin Acetaminophen 650 mg 03/28/21 12:45 Acetaminophen 325 Mg Tab PO Q4H PRN Pain MILD(1-3)/Fever >100.5/MIRANDA Albuterol 2.5 mg 04/08/21 11:23 Albuterol 2.5 Mg/3 Ml Nebu IH Q4H PRN Shortness of breath. Arformoterol Tartrate 15 mcg 04/08/21 20:00 04/11/21 09:42 Arformoterol 15 Mcg/2 Ml Nebu IH 15 mcg Q12HRT LISSETTE Administration Aspirin 81 mg 03/29/21 10:00 04/11/21 10:02 Aspirin 81 Mg Tab Chew PO 81 mg QDAY LISSETTE Administration Benzonatate 100 mg 03/29/21 07:00 04/11/21 05:53 Benzonatate 100 Mg Cap PO 100 mg Q8HR LISSETTE Administration Budesonide 0.5 mg 04/08/21 20:00 04/11/21 09:41 Budesonide 0.5 Mg/2 Ml Nebu IH 0.5 mg Q12HRT LISSETTE Administration Carvedilol 12.5 mg 04/11/21 11:00 Carvedilol 12.5 Mg Tab PO BID LISSETTE Enoxaparin Sodium 40 mg 03/28/21 14:00 04/11/21 10:02 Enoxaparin 40 Mg/0.4 Ml Inj SUB-Q 40 mg DAILY LISSETTE Administration Protocol Gabapentin 300 mg 03/29/21 18:00 04/10/21 17:40 Gabapentin 300 Mg Cap PO 300 mg QPM LISSETTE Administration Labetalol HCl 10 mg 03/28/21 15:34 Labetalol 20 Mg/4 Ml Inj IV Q6HR PRN sbp > 160, hold for hr < 70 Miscellaneous Medication 20 mg 03/29/21 10:00 Leflunomide PO DAILY LISSETTE Ondansetron HCl 4 mg 03/28/21 12:45 Ondansetron 4 Mg/2 Ml Inj IV Q8H PRN Nausea And Vomiting Oxycodone/Acetaminophen 1 tab 03/28/21 12:45 04/01/21 10:36 Oxycodone /Acetaminophen 5-325mg Tab PO 1 tab Q6H PRN Administration Pain, Moderate (4-6) Pravastatin Sodium 40 mg 03/29/21 22:00 04/10/21 22:25 Pravastatin 40 Mg Tab PO 40 mg QHS LISSETTE Administration Sodium Chloride 10 ml 03/28/21 22:00 04/11/21 10:10 Sodium Chloride 0.9% 10 Ml Flush Syringe IV 10 ml BID LISSETTE Administration Sodium Chloride 10 ml 03/28/21 12:45 Sodium Chloride 0.9% 10 Ml Flush Syringe IV PRN PRN LINE FLUSH Nutrition/Malnutrition Assess - Dietary Evaluation Nutrition/Malnutrition Findings: Nutrition Notes Start: 03/29/21 14:40 Freq: Status: Active Protocol: Document 04/10/21 12:13 JADEN (Rec: 04/10/21 12:41 JADEN [email or web address]) Nutrition Notes Need for Assessment generated from: [employer] Initial or Follow up Reassessment Current Diagnosis Heart Failure Other Pertinent Diagnosis Pneumonia, possible assoc w/ COVID-19 Current Diet Cardiac Diet, since 03/28. Labs/Tests 04/06: CO2 31, BUN 22, Cr 0.7, Glu 145. Pertinent Medications 04/10: Reviewed. Height 5 ft 5 in Weight 86.5 kg [place] Body Weight (kg) 61.81 BMI 31.7 Intake Prior to Admission Excellent Weight Status Obese Subjective/Other Information Pt reported lack of appetite and diarrhea upon admission, but since, has improved. Currently Pt with regular BM. Percent of energy/protein needs met: Prescribed Cardiac Diet provides with energy/protein needs during LOS (2230 Kcal/ 85 g). Burn Absent Trauma Absent GI Symptoms None Food Allergy No Skin Integrity/Comment Integumentary; clear,warm,dry. Current % PO Good (75-100%) Minimum of two criteria No physical signs of malnutrition #1 Nutrition Diagnosis No nutrition diagnosis at this time Comments: Pt reported increased appetite and tolerance of food; currently, 100% of meals intake. Diagnosis Progress(for reassessment Improved documentation) Is patient on ventilator? No Is Patient Ambulatory and/or Out of Bed Yes REE-([place]. Jeor-ambulatory/OOB) [ 2030.444 [id number]] Kcal/Kg value to use for calculation 26 Approximate Energy Requirements Using 2249 kcal/Kg Calculation Used for Recommendations Kcal/kg Additional Notes Protein: 1.0-1.2 g/Kg/day; 62- 75 g/day; 248-300 Kcal/day ( from IBW). Fluids: 1.0 ml/kcal/day, or as per MD. Nutrition Intervention Change Diet Order: continue Cardiac Diet during LOS. Goal #1 Maintain body weight within +/ -3% of current BWt during LOS. Goal #2 Reach and maintain acceptable chemistry lab values during LOS. Follow-Up By: 04/17/21 Additional Comments Continue monitoring % of meals PO intake, acceptance of food , and BM.
[2021-04-11] MEDS: carvediloL 12.5 MG TAB PO SCH ×2 (13:38→22:42)
[2021-04-11] MEDS: GABAPENTIN 300 MG CAP PO SCH (17:49)
--- NOTE | 2021-04-11 22:06 | Progress Note ---
Assessment and Plan 66-year-old male with past medical history of hypertension, congestive heart failure, [place] 18 years ago presenting for complaint of shortness of breath of onset last Friday. Patient was seen and evaluated at our emergency department 2 days ago for similar symptoms. He was believed to have symptoms consistent with Covid 19 viral illness . He was discharged with prescriptions for Tessalon Perles and albuterol nebulizer and instructed to obtain outpatient COVID-19 testing. Patient states that over the course the last 2 days his sym ptoms progressively worsened. He had associated symptoms of fever, dry cough, poor p.o. intake, diarrhea and generalized weakness. Medications prescribed 2 days ago did not relieve symptoms. When patient had near syncopal event, who is a charge loader at our facility recommended he come back to our hospital to be evaluated and treated. On arrival patient was found to be hypoxic with saturations of 80%. This improved to 93% on my encounter, patient was on 4 L nasal cannula. Of note he does have a history of congestive heart failure. He could not remember the name of his current community outreach manager however he did used to follow with Dr. Pabon from [facility]. He did not know what his ejection fraction was but did state he is currently taking Entresto and Coreg for his congestive heart failure. Moreover, patient has been vaccinated against COVID-19 receiving in both doses of the Pfizer vaccine back in . He denied any known sick contacts except for his who had similar symptoms but recovered uneventfully. She was not tested but is vaccinated against COVID-19. Patient has no history of smoking, alcohol or drug abuse. 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 ED Course: Azithromycin IV, Rocephin IV, Decadron IV, albuterol nebulizer Patient awake.Alert, Resting in bed. Patients O2 requirements coming down. Patient is on 6 litres O2 and O2 saturation reported 98%. Denies chest pain, shortness of breath or cough. Patient running low grade temp at times. No leukocytosis present WBC 6000. Blood pressure 111/68, Pulse 100. Denies chest pain, shortness of breath or cough . Chest xray done 03/28/21 reported Stable mild perihilar prominence. No consolidation, pleural effusion or pneumothorax. Patient has Angio CT of chest done 03/28/21 reported No evidence of pulmonary thromboembolism . Extensive bilateral pneumonitis, probably viral Chest xray done 04/08/21 reported Improved aeration with persistence of multifocal airspace opacities. Patient presently on Enoxaparin, Benzonatate, Brovana, Albuterol inhaler and Budesonide aerosol treatments. Patient finished course of Ceftriaxone, Zithromax. - Patient Problems (1) Acute respiratory failure with hypoxia Current Visit: Yes Status: Acute Plan to address problem: Patient is on 6 litres O2. Continue Albuterol inhaler, budesonide, and brovana. Continue S/C Enoxaparin (2) COVID-19 virus infection Current Visit: Yes Status: Acute Plan to address problem: S/C Lovenox. Management as per infectious diseases. (3) Pneumonia due to COVID-19 virus Current Visit: Yes Status: Acute Plan to address problem: Patient was on ceftriaxone and Zithromax. (4) CAD (coronary artery disease) Current Visit: Yes Status: Acute Plan to address problem: Management as per cardiology. (5) HFrEF (heart failure with reduced ejection fraction) Current Visit: Yes Status: Acute Plan to address problem: Management as per cardiology. (6) HTN (hypertension) Current Visit: Yes Status: Acute Plan to address problem: Management as per primary care. Subjective Date of service: 04/11/21 Principal diagnosis: Acute hypoxemic resp failure; COVID-19 infxn; Pneumonia; CAD; HFrEF; HTN Interval history: 66-year-old male with past medical history of hypertension, congestive heart failure, [place] 18 years ago presenting for complaint of shortness of breath of onset last Friday. Patient was seen and evaluated at our emergency department 2 days ago for similar symptoms. He was believed to have symptoms consistent with Covid 19 viral illness . He was discharged with prescriptions for Tessalon Perles and albuterol nebulizer and instructed to obtain outpatient COVID-19 testing. Patient states that over the course the last 2 days his symptoms progressively worsened. He had associated symptoms of fever, dry cough, poor p.o. intake, diarrhea and generalized weakness. Medications prescribed 2 days ago did not relieve symptoms. When patient had near syncopal event, who is a charge loader at our facility recommended he come back to our hospital to be evaluated and treated. On arrival patient was found to be hypoxic with saturations of 80%. This improved to 93% on my encounter, patient was on 4 L nasal cannula. Of note he does have a history of congestive heart failure. He could not remember the name of his current community outreach manager however he did used to follow with Dr. Pabon from [facility]. He did not know what his ejection fraction was but did state he is currently taking Entresto and Coreg for his congestive heart failure. Moreover, patient has been vaccinated against COVID-19 receiving in both doses of the Pfizer vaccine back in . He denied any known sick contacts except for his who had similar symptoms but recovered uneventfully. She was not tested but is vaccinated against COVID-19. Patient has no history of smoking, alcohol or drug abuse. 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 ED Course: Azithromycin IV, Rocephin IV, Decadron IV, albuterol nebulizer Patient awake.Alert, Resting in bed. Patients O2 requirements coming down. Patient is on 6 litres O2 and O2 saturation reported 98%. Denies chest pain, shortness of breath or cough. Patient running low grade temp at times. No leukocytosis present WBC 6000. Blood pressure 111/68, Pulse 100. Denies chest pain, shortness of breath or cough . Chest xray done 03/28/21 reported Stable mild perihilar prominence. No consolidation, pleural effusion or pneumothorax. Patient has Angio CT of chest 03/28/21 reported No evidence of pulmonary thromboembolism . Extensive bilateral pneumonitis, probably viral Chest xray done 04/08/21 reported Improved aeration with persistence of multifocal airspace opacities. Patient presently on Enoxaparin, Benzonatate, Brovana, Albuterol inhaler and Budesonide aerosol treatments. Patient finished course of Ceftriaxone, Zithromax Objective Vital Signs - 12hr 04/11/21 04/11/21 04/11/21 10:20 11:55 13:38 Temperature 98.9 F Pulse Rate 105 H 99 H 99 H Respiratory 16 Rate Blood Pressure 103/70 131/82 131/82 O2 Sat by Pulse 98 Oximetry 04/11/21 19:38 Temperature 99.8 F H Pulse Rate 100 H Respiratory 18 Rate Blood Pressure 111/68 O2 Sat by Pulse 97 Oximetry Constitutional: no acute distress, alert Eyes: non-icteric ENT: oropharynx moist Neck: supple, no lymphadenopathy, no JVD Effort: mildly labored Ascultation: Bilateral: rhonchi Percussion: Bilateral: not dull Cardiovascular: regular rate and rhythm Gastrointestinal: normoactive bowel sounds, soft, non-tender, non-distended (protuberant) Integumentary: normal Extremities: no cyanosis, no edema Neurologic: normal mental status, non-focal exam, pupils equal and round, CN II- XII normal Psychiatric: mood appropriate, affect normal CBC and BMP: 04/11/21 05:47 04/11/21 05:47 ABG, PT/INR, D-dimer: ABG ABG pH 7.455 pH Units (7.350-7.450) H 04/06/21 11:40 POC ABG pCO2 42.0 mmHg (32.0-48.0) 03/29/21 20:03 ABG pCO2 39.3 mm Hg 04/06/21 11:40 POC ABG pO2 51.4 mmHg (83-108) L 03/29/21 20:03 ABG pO2 69.0 mm Hg (80.0-90.0) L 04/06/21 11:40 POC ABG HCO3 18.6 03/29/21 20:03 ABG O2 Saturation 93.7 % (95.0-99.0) L 04/06/21 11:40 PT/INR, D-dimer PT 13.2 Sec. (12.2-14.9) 03/28/21 Unknown INR 0.95 (0.87-1.13) 03/28/21 Unknown D-Dimer 8753.33 ng/mlDDU (0-234) H 04/06/21 05:03 Abnormal lab findings: Abnormal Labs 03/28/21 03/28/21 03/28/21 08:26 09:25 09:25 WBC RDW Plt Count Lymph % (Auto) [place] % (Auto) Lymph # (Auto) [place] # (Auto) Baso # (Auto) Seg Neutrophils % Lymphocytes % (Manual) Seg Neutrophils # Seg Neutrophils # Man Lymphocytes # (Manual) APTT D-Dimer 1100.30 H ABG pH POC ABG pO2 ABG pO2 ABG HCO3 ABG O2 Saturation ABG Hemoglobin ABG Oxyhemoglobin ABG Glucose Oxyhemoglobin Chloride Carbon Dioxide BUN Creatinine Glucose 109 H POC Glucose Calcium Magnesium 2.40 H Ferritin AST Lactate Dehydrogenase 677 H C-Reactive Protein 13.70 H Albumin Arterial Blood Glucose Arterial Blood Ionized Calcium Ur Specific [place] Coronavirus (PCR) 03/28/21 03/28/21 03/28/21 09:25 Unknown Unknown WBC RDW Plt Count 96 L Lymph % (Auto) 7.2 L [place] % (Auto) 10.8 H Lymph # (Auto) 0.5 L [place] # (Auto) Baso # (Auto) Seg Neutrophils % 81.8 H Lymphocytes % (Manual) Seg Neutrophils # Seg Neutrophils # Man Lymphocytes # (Manual) APTT D-Dimer ABG pH POC ABG pO2 ABG pO2 ABG HCO3 ABG O2 Saturation ABG Hemoglobin ABG Oxyhemoglobin ABG Glucose Oxyhemoglobin Chloride Carbon Dioxide BUN Creatinine Glucose POC Glucose Calcium Magnesium Ferritin 1340.0 H AST Lactate Dehydrogenase C-Reactive Protein Albumin Arterial Blood Glucose Arterial Blood Ionized Calcium Ur Specific [place] 1.038 H Coronavirus (PCR) 03/28/21 03/28/21 03/28/21 Unknown Unknown Unknown WBC RDW Plt Count Lymph % (Auto) [place] % (Auto) Lymph # (Auto) [place] # (Auto) Baso # (Auto) Seg Neutrophils % Lymphocytes % (Manual) Seg Neutrophils # Seg Neutrophils # Man Lymphocytes # (Manual) APTT 38.7 H D-Dimer ABG pH POC ABG pO2 ABG pO2 ABG HCO3 ABG O2 Saturation ABG Hemoglobin ABG Oxyhemoglobin ABG Glucose Oxyhemoglobin Chloride Carbon Dioxide BUN Creatinine Glucose 120 H POC Glucose Calcium Magnesium Ferritin AST 73 H Lactate Dehydrogenase C-Reactive Protein Albumin 3.4 L Arterial Blood Glucose Arterial Blood Ionized Calcium Ur Specific [place] Coronavirus (PCR) Positive A 03/29/21 03/29/21 03/29/21 02:30 02:30 02:30 WBC RDW 15.4 H Plt Count 107 L Lymph % (Auto) 5.6 L [place] % (Auto) 10.0 H Lymph # (Auto) 0.4 L [place] # (Auto) Baso # (Auto) Seg Neutrophils % 84.2 H Lymphocytes % (Manual) Seg Neutrophils # Seg Neutrophils # Man Lymphocytes # (Manual) APTT D-Dimer ABG pH POC ABG pO2 ABG pO2 ABG HCO3 ABG O2 Saturation ABG Hemoglobin ABG Oxyhemoglobin ABG Glucose Oxyhemoglobin Chloride Carbon Dioxide BUN Creatinine Glucose 128 H POC Glucose Calcium Magnesium 2.60 H Ferritin AST 64 H Lactate Dehydrogenase C-Reactive Protein Albumin 3.1 L Arterial Blood Glucose Arterial Blood Ionized Calcium Ur Specific [place] Coronavirus (PCR) 03/29/21 03/29/21 03/29/21 15:30 19:48 20:03 WBC RDW Plt Count Lymph % (Auto) [place] % (Auto) Lymph # (Auto) [place] # (Auto) Baso # (Auto) Seg Neutrophils % Lymphocytes % (Manual) Seg Neutrophils # Seg Neutrophils # Man Lymphocytes # (Manual) APTT D-Dimer ABG pH 7.264 L POC ABG pO2 51.4 L ABG pO2 ABG HCO3 ABG O2 Saturation ABG Hemoglobin ABG Oxyhemoglobin 77.6 L ABG Glucose 275 H Oxyhemoglobin Chloride Carbon Dioxide 21 L BUN Creatinine Glucose 125 H POC Glucose 189 H Calcium Magnesium Ferritin AST 64 H Lactate Dehydrogenase C-Reactive Protein Albumin 2.8 L Arterial Blood Glucose 275 H Arterial Blood Ionized Calcium 4.5 L Ur Specific [place] Coronavirus (PCR) 03/30/21 03/31/21 03/31/21 06:07 07:38 07:38 WBC 11.8 H RDW 15.4 H Plt Count Lymph % (Auto) 2.4 L [place] % (Auto) 8.4 H Lymph # (Auto) 0.3 L [place] # (Auto) 1.0 H Baso # (Auto) Seg Neutrophils % 89.0 H Lymphocytes % (Manual) Seg Neutrophils # 10.5 H Seg Neutrophils # Man Lymphocytes # (Manual) APTT D-Dimer > 42326 H ABG pH POC ABG pO2 ABG pO2 ABG HCO3 ABG O2 Saturation ABG Hemoglobin ABG Oxyhemoglobin ABG Glucose Oxyhemoglobin Chloride Carbon Dioxide BUN Creatinine Glucose 131 H POC Glucose Calcium Magnesium Ferritin AST 49 H Lactate Dehydrogenase C-Reactive Protein Albumin 2.7 L Arterial Blood Glucose Arterial Blood Ionized Calcium Ur Specific [place] Coronavirus (PCR) 03/31/21 03/31/21 04/01/21 07:38 07:38 06:37 WBC RDW Plt Count Lymph % (Auto) [place] % (Auto) Lymph # (Auto) [place] # (Auto) Baso # (Auto) Seg Neutrophils % Lymphocytes % (Manual) Seg Neutrophils # Seg Neutrophils # Man Lymphocytes # (Manual) APTT D-Dimer ABG pH POC ABG pO2 ABG pO2 ABG HCO3 ABG O2 Saturation ABG Hemoglobin ABG Oxyhemoglobin ABG Glucose Oxyhemoglobin Chloride Carbon Dioxide BUN Creatinine 0.7 L 0.7 L Glucose 122 H 117 H POC Glucose Calcium Magnesium Ferritin 1419.0 H AST 42 H 53 H Lactate Dehydrogenase 752 H C-Reactive Protein 4.40 H Albumin 2.9 L 3.2 L Arterial Blood Glucose Arterial Blood Ionized Calcium Ur Specific [place] Coronavirus (PCR) 04/02/21 04/02/21 04/02/21 05:57 05:57 05:57 WBC 13.6 H RDW 15.7 H Plt Count Lymph % (Auto) 2.3 L [place] % (Auto) 10.5 H Lymph # (Auto) 0.3 L [place] # (Auto) 1.4 H Baso # (Auto) 0.2 H Seg Neutrophils % 86.0 H Lymphocytes % (Manual) Seg Neutrophils # 11.7 H Seg Neutrophils # Man Lymphocytes # (Manual) APTT D-Dimer > 51676 H ABG pH POC ABG pO2 ABG pO2 ABG HCO3 ABG O2 Saturation ABG Hemoglobin ABG Oxyhemoglobin ABG Glucose Oxyhemoglobin Chloride Carbon Dioxide BUN 22 H Creatinine 0.7 L Glucose 149 H POC Glucose Calcium Magnesium Ferritin AST 42 H Lactate Dehydrogenase 811 H C-Reactive Protein 2.00 H Albumin 3.0 L Arterial Blood Glucose Arterial Blood Ionized Calcium Ur Specific [place] Coronavirus (PCR) 04/02/21 04/02/21 04/03/21 05:57 21:00 05:56 WBC RDW Plt Count Lymph % (Auto) [place] % (Auto) Lymph # (Auto) [place] # (Auto) Baso # (Auto) Seg Neutrophils % Lymphocytes % (Manual) Seg Neutrophils # Seg Neutrophils # Man Lymphocytes # (Manual) APTT D-Dimer > 27557 H ABG pH POC ABG pO2 ABG pO2 ABG HCO3 ABG O2 Saturation ABG Hemoglobin ABG Oxyhemoglobin ABG Glucose Oxyhemoglobin Chloride Carbon Dioxide BUN Creatinine Glucose POC Glucose 160 H Calcium Magnesium Ferritin 1180.0 H AST Lactate Dehydrogenase C-Reactive Protein Albumin Arterial Blood Glucose Arterial Blood Ionized Calcium Ur Specific [place] Coronavirus (PCR) 04/03/21 04/06/21 04/06/21 05:56 05:03 05:03 WBC 11.7 H RDW 15.6 H Plt Count Lymph % (Auto) [place] % (Auto) Lymph # (Auto) [place] # (Auto) Baso # (Auto) Seg Neutrophils % Lymphocytes % (Manual) 1.0 L Seg Neutrophils # Seg Neutrophils # Man 11.2 H Lymphocytes # (Manual) 0.1 L APTT D-Dimer 8753.33 H ABG pH POC ABG pO2 ABG pO2 ABG HCO3 ABG O2 Saturation ABG Hemoglobin ABG Oxyhemoglobin ABG Glucose Oxyhemoglobin Chloride Carbon Dioxide BUN Creatinine Glucose POC Glucose Calcium Magnesium Ferritin 1117.0 H AST Lactate Dehydrogenase C-Reactive Protein Albumin Arterial Blood Glucose Arterial Blood Ionized Calcium Ur Specific [place] Coronavirus (PCR) 04/06/21 04/06/21 04/10/21 05:03 11:40 02:30 WBC RDW Plt Count Lymph % (Auto) [place] % (Auto) Lymph # (Auto) [place] # (Auto) Baso # (Auto) Seg Neutrophils % Lymphocytes % (Manual) Seg Neutrophils # Seg Neutrophils # Man Lymphocytes # (Manual) APTT D-Dimer ABG pH 7.455 H POC ABG pO2 ABG pO2 69.0 L ABG HCO3 27.0 H ABG O2 Saturation 93.7 L ABG Hemoglobin 13.8 L ABG Oxyhemoglobin ABG Glucose Oxyhemoglobin 93.3 L Chloride Carbon Dioxide 31 H BUN 22 H Creatinine 0.7 L Glucose 145 H POC Glucose Calcium Magnesium 2.50 H Ferritin AST Lactate Dehydrogenase C-Reactive Protein Albumin Arterial Blood Glucose Arterial Blood Ionized Calcium Ur Specific [place] Coronavirus (PCR) 04/11/21 04/11/21 05:47 05:47 WBC RDW 16.1 H Plt Count 123 L Lymph % (Auto) [place] % (Auto) Lymph # (Auto) [place] # (Auto) Baso # (Auto) Seg Neutrophils % Lymphocytes % (Manual) Seg Neutrophils # Seg Neutrophils # Man Lymphocytes # (Manual) APTT D-Dimer ABG pH POC ABG pO2 ABG pO2 ABG HCO3 ABG O2 Saturation ABG Hemoglobin ABG Oxyhemoglobin ABG Glucose Oxyhemoglobin Chloride 107.3 H Carbon Dioxide BUN Creatinine Glucose POC Glucose Calcium 8.3 L Magnesium Ferritin AST Lactate Dehydrogenase C-Reactive Protein Albumin Arterial Blood Glucose Arterial Blood Ionized Calcium Ur Specific [place] Coronavirus (PCR) Allied health notes reviewed: nursing
[2021-04-11] MEDS: PRAVASTATIN 40 MG TAB PO SCH (22:42)
[2021-04-12] MEDS: BUDESONIDE 0.5 MG/2 ML NEBU IH SCH ×3 (00:07→22:31)
[2021-04-12] MEDS: ARFORMOTEROL 15 MCG/2 ML NEBU IH SCH ×3 (00:07→22:31)
[2021-04-12] MEDS: BENZONATATE 100 MG CAP PO SCH ×3 (06:02→22:25)
--- NOTE | 2021-04-12 08:27 | Progress Note ---
Assessment and Plan Assessment and plan: 58-year-old male with past medical history of hypertension, congestive heart failure, [place] 18 years ago presenting for complaint of shortness of breath of onset last Friday. Patient states that over the course the last 2 days his symptoms progressively worsened. He had associated symptoms of fever, dry cough, poor p.o. intake, diarrhea and generalized weakness. Ongoing evaluation and treatment for covid pneumonia Acute hypoxic respiratory failure COVID-19 pneumonia Sepsis. Present on admission. Patient met criteria given the fever, tachycardia and diagnosis of pneumonia. Transaminitis. Etiology secondary to sepsis. Chronic CHF EF of 30 to 35%. Hypertension. Hyperlipidemia. History of rheumatoid arthritis. Peripheral neuropathy. Nonsustained V. tach History of coronary artery disease status post PCI. Hospital Course: 03/29/2021: Cardiology evaluated patient due to 5 beats NSVT. Increased coreg, continue entresto. Patient follows with Dr Martinez. ID evaluated patient, Remdesivir started. Will continue supportive care. 03/30/2021: Respiratory distress overnight. LIkely an allergic reaction to remdesivir. Remdesivir has since been discontinued. Was on BIPAP on encounter and has since been dropped to 15 l/min salter nc. Continue supportive man agement. Will order inflammatory markers. 03/31/2021: Remains on salter nc 15l /min. sats 88-90% but in no distress. Continue supporitve management. Increased steroids to 60 q6hr. Obtained Pulmonology consult. CXR ordered, will follow. 04/01/2021: Remains on salter nc 12l /min. sats 88-90% but in no distress. Titrate down O2 requirements, ok with sats > 88%. Continue supporitve management. Lasix 20 mg IV x 1 ordered. 04/02/2021: Remains on salter nc 12l /min. Able to ambulate without any distress but does desaturate to 78%. Sats 88-90% when resting. Titrate down O2 requirements, ok with sats > 88%. Lasix 40 mg IV twice daily x 2 doses ordered. Continue supportive management 04/03/2021. Remains on salter nc but decreased from 12l /min to 8 L/min. Titrate down O2 requirements, ok with sats > 88%. Continue Lasix as needed 04/04/2021. Patient's oxygen was decreased to 10 L/min but was noted to have desaturation into the 70s. Therefore, patient was placed on 15 L with nonrebreather. Continue prone positioning as able. Patient has significantly elevated D-dimer. However, Doppler studies and CTA of chest were negative. Continue to trend D-dimer along with other inflammatory markers. Prognosis is guarded 04/05/2021. Patient sitting up in a chair and states that he feels comfortable. Patient previously on nonrebreather plus Salter nasal cannula 15 L FiO2 100% which has now been weaned to 8 L. Continue prone positioning as possible. Repeat D-dimer on 04/03 was still greater than 10,000 but CTA of chest and Doppler studies of lower extremities were negative. Recheck D-dimer in a.m. 04/06/2021. D-dimer is slightly decreased to ~8700. Patient remains on salter nasal cannula 8 L/min. Continue prone positioning as possible. Continue to trend inflammatory markers. 04/07/2021. Patient remains on salter nasal cannula 8 L/min. Continue prone positioning as possible. Continue to trend inflammatory markers. PT/OT. Exercise pulse oximetry testing at discharge. 04/08/2021. Patient remains on salter nasal cannula increased to 10 L/min. Continue prone positioning as possible. Continue to trend inflammatory markers. Continue IV Solu-Medrol per pulmonary recommendations. BG is stable. 04/09/2021. Patient remains on salter nasal cannula increased to 10 L/min. Cont inue prone positioning as possible. Continue to trend inflammatory markers. Continue IV Solu-Medrol per pulmonary recommendations. BG is stable. 04/10/2021 Patient with Covid-19 with acute resp failure . Still on Oxygen at 10 l/min. Continue current. Repeat labs in am. 04/11/2021 Patient with Covid-19 pneumonia with acute resp failure. Now on Oxygen at 6 l/min down from 10 l/min yesterday.. Pulm following. Likely dc home in few days. To obtain ambulatory pulse ox to determine need for Oxygen prior to discharge. 04/12/2021 Acute hypoxic respiratory failure due to Covid-19 pneumonia. On 11 L oxygen by nasal cannula. Has thrombocytopenia, no bleeding noted and will monitor. Nonsustained V. tach, on beta-anuja. Cardiology will be informed. Will check CBC, BMP and magnesium in the morning. History Interval history: He feels better. No shortness of breath. Has occasional cough. No chest pain, fever, chills. He is not reporting that patient had 5 beats of nonsustained V. tach. Hospitalist Physical - Constitutional Vitals: Temp Pulse Resp BP Pulse Ox 99.8 F H 100 H 20 111/68 99 04/11/21 19:38 04/11/21 22:42 04/11/21 22:00 04/11/21 22:42 04/12/21 02:00 General appearance: Present: no acute distress - EENT Eyes: Present: PERRL, EOM intact ENT: hearing intact - Neck Neck: Present: supple, normal ROM - Respiratory Respiratory effort: normal Respiratory: bilateral: CTA - Cardiovascular Rhythm: regular Heart Sounds: Present: S1 & S2 - Extremities Extremities: No edema - Abdominal General gastrointestinal: soft, non-tender, non-distended, normal bowel sounds - Psychiatric Psychiatric: appropriate mood/affect HEART Score - HEART Score Troponin: Troponin T 0.013 ng/mL (0.00-0.029) 03/28/21 Unknown Results - Labs CBC & Chem 7: 04/11/21 05:47 04/11/21 05:47 Labs: Laboratory Last Values WBC 6.0 K/mm3 (4.5-11.0) 04/11/21 05:47 RBC 4.16 M/mm3 (3.65-5.03) 04/11/21 05:47 Hgb 12.9 gm/dl (11.8-15.2) 04/11/21 05:47 Hct 37.9 % (35.5-45.6) 04/11/21 05:47 MCV 91 fl (84-94) 04/11/21 05:47 MCH 31 pg (28-32) 04/11/21 05:47 MCHC 34 % (32-34) 04/11/21 05:47 RDW 16.1 % (13.2-15.2) H 04/11/21 05:47 Plt Count 123 K/mm3 (140-440) L 04/11/21 05:47 Lymph % (Auto) 2.3 % (13.4-35.0) L 04/02/21 05:57 [place] % (Auto) 10.5 % (0.0-7.3) H 04/02/21 05:57 Eos % (Auto) 0.0 % (0.0-4.3) 04/02/21 05:57 Baso % (Auto) 1.2 % (0.0-1.8) 04/02/21 05:57 Lymph # (Auto) 0.3 K/mm3 (1.2-5.4) L 04/02/21 05:57 [place] # (Auto) 1.4 K/mm3 (0.0-0.8) H 04/02/21 05:57 Eos # (Auto) 0.0 K/mm3 (0.0-0.4) 04/02/21 05:57 Baso # (Auto) 0.2 K/mm3 (0.0-0.1) H 04/02/21 05:57 Add Manual Diff Complete 04/06/21 05:03 Total Counted 100 04/06/21 05:03 Seg Neutrophils % Clay Molder 04/06/21 05:03 Band Neutrophils % 1.0 % 04/06/21 05:03 Lymphocytes % (Manual) 1.0 % (13.4-35.0) L 04/06/21 05:03 Monocytes % (Manual) 2.0 % (0.0-7.3) 04/06/21 05:03 Nucleated RBC % Not Reportable 04/06/21 05:03 Seg Neutrophils # 11.7 K/mm3 (1.8-7.7) H 04/02/21 05:57 Seg Neutrophils # Man 11.2 K/mm3 (1.8-7.7) H 04/06/21 05:03 Band Neutrophils # 0.1 K/mm3 04/06/21 05:03 Lymphocytes # (Manual) 0.1 K/mm3 (1.2-5.4) L 04/06/21 05:03 Abs React Lymphs (Man) 0.0 K/mm3 04/06/21 05:03 Monocytes # (Manual) 0.2 K/mm3 (0.0-0.8) 04/06/21 05:03 Eosinophils # (Manual) 0.0 K/mm3 (0.0-0.4) 04/06/21 05:03 Basophils # (Manual) 0.0 K/mm3 (0.0-0.1) 04/06/21 05:03 Metamyelocytes # 0.0 K/mm3 04/06/21 05:03 Myelocytes # 0.0 K/mm3 04/06/21 05:03 Promyelocytes # 0.0 K/mm3 04/06/21 05:03 Blast Cells # 0.0 K/mm3 04/06/21 05:03 WBC Morphology Not Reportable 04/06/21 05:03 Hypersegmented Neuts Not Reportable 04/06/21 05:03 Hyposegmented Neuts Not Reportable 04/06/21 05:03 Hypogranular Neuts Not Reportable 04/06/21 05:03 Smudge Cells Not Reportable 04/06/21 05:03 Toxic Granulation Not Reportable 04/06/21 05:03 Toxic Vacuolation Not Reportable 04/06/21 05:03 Dohle Bodies Not Reportable 04/06/21 05:03 Pelger-Huet Anomaly Not Reportable 04/06/21 05:03 Adan Rods Not Reportable 04/06/21 05:03 Platelet Estimate Consistent w auto 04/06/21 05:03 Clumped Platelets Not Reportable 04/06/21 05:03 Plt Clumps, EDTA Not Reportable 04/06/21 05:03 Large Platelets Not Reportable 04/06/21 05:03 Giant Platelets Not Reportable 04/06/21 05:03 Platelet Satelliting Not Reportable 04/06/21 05:03 Plt Morphology Comment Not Reportable 04/06/21 05:03 RBC Morphology Not Reportable 04/06/21 05:03 Dimorphic RBCs Not Reportable 04/06/21 05:03 Polychromasia Not Reportable 04/06/21 05:03 Hypochromasia Not Reportable 04/06/21 05:03 Poikilocytosis 1+ 04/06/21 05:03 Anisocytosis Not Reportable 04/06/21 05:03 Microcytosis Not Reportable 04/06/21 05:03 Macrocytosis Not Reportable 04/06/21 05:03 Spherocytes Not Reportable 04/06/21 05:03 Pappenheimer Bodies Not Reportable 04/06/21 05:03 Sickle Cells Not Reportable 04/06/21 05:03 Target Cells Not Reportable 04/06/21 05:03 Tear Drop Cells Not Reportable 04/06/21 05:03 Ovalocytes Not Reportable 04/06/21 05:03 Helmet Cells Not Reportable 04/06/21 05:03 [place] Bodies Not Reportable 04/06/21 05:03 [place] Rings Not Reportable 04/06/21 05:03 Tushar Cells Not Reportable 04/06/21 05:03 Bite Cells Not Reportable 04/06/21 05:03 Crenated Cell Not Reportable 04/06/21 05:03 Elliptocytes Not Reportable 04/06/21 05:03 Acanthocytes (Spur) Not Reportable 04/06/21 05:03 Rouleaux Not Reportable 04/06/21 05:03 Hemoglobin C Crystals Not Reportable 04/06/21 05:03 Schistocytes Not Reportable 04/06/21 05:03 Malaria parasites Not Reportable 04/06/21 05:03 Luke Bodies Not Reportable 04/06/21 05:03 Hem Pathologist Commnt No 04/06/21 05:03 PT 13.2 Sec. (12.2-14.9) 03/28/21 Unknown INR 0.95 (0.87-1.13) 03/28/21 Unknown APTT 38.7 Sec. (24.2-36.6) H 03/28/21 Unknown D-Dimer 8753.33 ng/mlDDU (0-234) H 04/06/21 05:03 ABG pH 7.455 pH Units (7.350-7.450) H 04/06/21 11:40 POC ABG pCO2 42.0 mmHg (32.0-48.0) 03/29/21 20:03 ABG pCO2 39.3 mm Hg 04/06/21 11:40 POC ABG pO2 51.4 mmHg (83-108) L 03/29/21 20:03 ABG pO2 69.0 mm Hg (80.0-90.0) L 04/06/21 11:40 POC ABG HCO3 18.6 03/29/21 20:03 ABG HCO3 27.0 mmol/L (20.0-26.0) H 04/06/21 11:40 ABG O2 Saturation 93.7 % (95.0-99.0) L 04/06/21 11:40 ABG O2 Content 18.1 (0.0-44) 04/06/21 11:40 POC ABG Base Excess -8.0 03/29/21 20:03 ABG Base Excess 3.0 mmol/L (-2.0-3.0) 04/06/21 11:40 ABG Hemoglobin 13.8 gm/dl (14.0-18.0) L 04/06/21 11:40 ABG Oxyhemoglobin 77.6 (94-98) L 03/29/21 20:03 ABG Carboxyhemoglobin 0.4 % (0.0-5.0) 04/06/21 11:40 ABG Methemoglobin Not Reportable 04/06/21 11:40 ABG Sodium 136.8 mmol/L (136.0-145.0) 03/29/21 20:03 ABG Potassium 4.0 mmol/L (3.40-4.50) 03/29/21 20:03 ABG Chloride 104.0 mmol/L (98-107) 03/29/21 20:03 ABG Glucose 275 mg/dL (65-95) H 03/29/21 20:03 Oxyhemoglobin 93.3 % (95.0-99.0) L 04/06/21 11:40 Carboxyhemoglobin 1.5 (0.5-1.5) 03/29/21 20:03 FiO2 21 % 04/06/21 11:40 FiO2 % 100.0 03/29/21 20:03 Sodium 143 mmol/L (137-145) 04/11/21 05:47 Potassium 4.3 mmol/L (3.6-5.0) 04/11/21 05:47 Chloride 107.3 mmol/L (98-107) H 04/11/21 05:47 Carbon Dioxide 25 mmol/L (22-30) 04/11/21 05:47 Anion Gap 15 mmol/L 04/11/21 05:47 BUN 18 mg/dL (9-20) 04/11/21 05:47 Creatinine 1.1 mg/dL (0.8-1.3) 04/11/21 05:47 Estimated GFR > 60 ml/min 04/11/21 05:47 BUN/Creatinine Ratio 16 % 04/11/21 05:47 Glucose 91 mg/dL (75-100) 04/11/21 05:47 POC Glucose 160 mg/dL (70-105) H 04/02/21 21:00 Lactic Acid 1.60 mmol/L (0.7-2.0) 03/28/21 Unknown Calcium 8.3 mg/dL (8.4-10.2) L 04/11/21 05:47 Magnesium 2.50 mg/dL (1.7-2.3) H 04/10/21 02:30 Ferritin 1117.0 ng/mL (30.0-300.0) H 04/03/21 05:56 Total Bilirubin 0.90 mg/dL (0.1-1.2) 04/02/21 05:57 AST 42 units/L (5-40) H 04/02/21 05:57 ALT 32 units/L (7-56) 04/02/21 05:57 Alkaline Phosphatase 85 units/L (35-129) 04/02/21 05:57 Lactate Dehydrogenase 811 units/L (91-180) H 04/02/21 05:57 Troponin T 0.013 ng/mL (0.00-0.029) 03/28/21 Unknown C-Reactive Protein 1.20 mg/dL (0.00-1.30) 04/03/21 05:56 Total Protein 6.6 g/dL (6.3-8.2) 04/02/21 05:57 Albumin 3.0 g/dL (3.9-5) L 04/02/21 05:57 Albumin/Globulin Ratio 0.8 % 04/02/21 05:57 Procalcitonin 0.37 ng/mL (<0.15) 03/28/21 09:25 Arterial Blood Glucose 275 mg/dL (65-95) H 03/29/21 20:03 Arterial Blood Ionized Calcium 4.5 mg/dL (4.6-5.3) L 03/29/21 20:03 Urine Color Tosha (Yellow) 03/28/21 Unknown Urine Turbidity Clear (Clear) 03/28/21 Unknown Urine pH 5.0 (5.0-7.0) 03/28/21 Unknown Ur Specific [place] 1.038 (1.003-1.030) H 03/28/21 Unknown Urine Protein >500 mg/dL (Negative) 03/28/21 Unknown Urine Glucose (UA) 50 mg/dL (Negative) 03/28/21 Unknown Urine Ketones Tr mg/dL (Negative) 03/28/21 Unknown Urine Blood Mod (Negative) 03/28/21 Unknown Urine Nitrite Neg (Negative) 03/28/21 Unknown Urine Bilirubin Neg (Negative) 03/28/21 Unknown Urine Urobilinogen 2.0 mg/dL (<2.0) 03/28/21 Unknown Ur Leukocyte Esterase Neg (Negative) 03/28/21 Unknown Urine WBC (Auto) 6.0 /HPF (0.0-6.0) 03/28/21 Unknown Urine RBC (Auto) 2.0 /HPF (0.0-6.0) 03/28/21 Unknown U Epithel Cells (Auto) < 1.0 /HPF (0-13.0) 03/28/21 Unknown Urine Mucus Few /HPF 03/28/21 Unknown Coronavirus (PCR) Positive (Negative) A 03/28/21 Unknown Cooney/IV: Voiding Method Toilet Active Medications - Current Medications Current Medications: Generic Name Dose Route Start Last Admin Trade Name Freq PRN Reason Stop Dose Admin Acetaminophen 650 mg 03/28/21 12:45 Acetaminophen 325 Mg Tab PO Q4H PRN Pain MILD(1-3)/Fever >100.5/MIRANDA Albuterol 2.5 mg 04/08/21 11:23 Albuterol 2.5 Mg/3 Ml Nebu IH Q4H PRN Shortness of breath. Arformoterol Tartrate 15 mcg 04/08/21 20:00 04/12/21 00:07 Arformoterol 15 Mcg/2 Ml Nebu IH Not Given Q12HRT LISSETTE Aspirin 81 mg 03/29/21 10:00 04/11/21 10:02 Aspirin 81 Mg Tab Chew PO 81 mg QDAY LISSETTE Administration Benzonatate 100 mg 03/29/21 07:00 04/12/21 06:02 Benzonatate 100 Mg Cap PO 100 mg Q8HR LISSETTE Administration Budesonide 0.5 mg 04/08/21 20:00 04/12/21 00:07 Budesonide 0.5 Mg/2 Ml Nebu IH Not Given Q12HRT LISSETTE Carvedilol 12.5 mg 04/11/21 11:00 04/11/21 22:42 Carvedilol 12.5 Mg Tab PO 12.5 mg BID LISSETTE Administration Enoxaparin Sodium 40 mg 03/28/21 14:00 04/11/21 10:02 Enoxaparin 40 Mg/0.4 Ml Inj SUB-Q 40 mg DAILY LISSETTE Administration Protocol Gabapentin 300 mg 03/29/21 18:00 04/11/21 17:49 Gabapentin 300 Mg Cap PO 300 mg QPM LISSETTE Administration Labetalol HCl 10 mg 03/28/21 15:34 Labetalol 20 Mg/4 Ml Inj IV Q6HR PRN sbp > 160, hold for hr < 70 Miscellaneous Medication 20 mg 03/29/21 10:00 Leflunomide PO DAILY LISSETTE Ondansetron HCl 4 mg 03/28/21 12:45 Ondansetron 4 Mg/2 Ml Inj IV Q8H PRN Nausea And Vomiting Oxycodone/Acetaminophen 1 tab 03/28/21 12:45 04/01/21 10:36 Oxycodone /Acetaminophen 5-325mg Tab PO 1 tab Q6H PRN Administration Pain, Moderate (4-6) Pravastatin Sodium 40 mg 03/29/21 22:00 04/11/21 22:42 Pravastatin 40 Mg Tab PO 40 mg QHS LISSETTE Administration Sodium Chloride 10 ml 03/28/21 22:00 04/11/21 22:43 Sodium Chloride 0.9% 10 Ml Flush Syringe IV 10 ml BID LISSETTE Administration Sodium Chloride 10 ml 03/28/21 12:45 Sodium Chloride 0.9% 10 Ml Flush Syringe IV PRN PRN LINE FLUSH Nutrition/Malnutrition Assess - Dietary Evaluation Nutrition/Malnutrition Findings: Nutrition Notes Start: 03/29/21 14:40 Freq: Status: Active Protocol: Document 04/10/21 12:13 JADEN (Rec: 04/10/21 12:41 JADEN [email or web address]) Nutrition Notes 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 Labs/Tests 04/06: CO2 31, BUN 22, Cr 0.7, Glu 145. Pertinent Medications 04/10: Reviewed. Height 5 ft 5 in Weight 86.5 kg Moore Body Weight (kg) 61.81 BMI 31.7 Intake Prior to Admission Excellent Weight Status Obese Subjective/Other Information Pt reported lack of appetite and diarrhea upon admission, but since, has improved. Currently Pt with regular BM. Percent of energy/protein needs met: Prescribed Cardiac Diet provides with energy/protein needs during LOS (2230 Kcal/ 85 g). Burn Absent Trauma Absent GI Symptoms None Food Allergy No Skin Integrity/Comment Integumentary; clear,warm,dry. Current % PO Good (75-100%) Minimum of two criteria No physical signs of malnutrition #1 Nutrition Diagnosis No nutrition diagnosis at this time Comments: Pt reported increased appetite and tolerance of food; currently, 100% of meals intake. Diagnosis Progress(for reassessment Improved documentation) Is patient on ventilator? No Is Patient Ambulatory and/or Out of Bed Yes REE-([facility]-ambulatory/OOB) [ 2030.444 [id number]] Kcal/Kg value to use for calculation 26 Approximate Energy Requirements Using 2249 kcal/Kg Calculation Used for Recommendations Kcal/kg Additional Notes Protein: 1.0-1.2 g/Kg/day; 62- 75 g/day; 248-300 Kcal/day ( from IBW). Fluids: 1.0 ml/kcal/day, or as per MD. Nutrition Intervention Change Diet Order: continue Cardiac Diet during LOS. Goal #1 Maintain body weight within +/ -3% of current BWt during LOS. Goal #2 Reach and maintain acceptable chemistry lab values during LOS. Follow-Up By: 04/17/21 Additional Comments Continue monitoring % of meals PO intake, acceptance of food , and BM.
[2021-04-12] MEDS: ASPIRIN 81 MG TAB CHEW PO SCH (10:04)
[2021-04-12] MEDS: SACUBITRIL/VALSARTAN 49-51 MG TAB PO SCH ×2 (10:04→22:25)
[2021-04-12] MEDS: ENOXAPARIN 40 MG/0.4 ML INJ SUB-Q SCH (10:05)
[2021-04-12] MEDS: carvediloL 12.5 MG TAB PO SCH ×2 (10:06→22:25)
[2021-04-12] MEDS: GABAPENTIN 300 MG CAP PO SCH (17:06)
[2021-04-12] MEDS: PRAVASTATIN 40 MG TAB PO SCH (22:25)
[2021-04-13] MEDS: BENZONATATE 100 MG CAP PO SCH ×3 (05:30→21:37)
[2021-04-13 07:11] LABS: Basophils % (Auto) 0.6 % (0.0-1.8); Eosinophils # (Auto) 0.1 K/mm3 (0.0-0.4); Eosinophils % (Auto) 1.7 % (0.0-4.3); Hemoglobin 12.8 gm/dl (11.8-15.2); Lymphocytes # (Auto) 0.3 K/mm3 (1.2-5.4); Lymphocytes % (Auto) 4.6 % (13.4-35.0); Mean Corpuscular HGB Conc 34 % (32-34); Mean Corpuscular Volume 91 fl (84-94); Monocytes # (Auto) 0.6 K/mm3 (0.0-0.8); Monocytes % (Auto) 9.6 % (0.0-7.3); Platelet Count 123 K/mm3 (140-440); Red Blood Count 4.18 M/mm3 (3.65-5.03); Red Cell Distribution Width 16.4 % (13.2-15.2)
[2021-04-13 07:30] LABS: BUN/Creatinine Ratio 13; Blood Urea Nitrogen 13 mg/dL (9-20); Calcium 8.6 mg/dL (8.4-10.2); Hemolysis Index 5
--- NOTE | 2021-04-13 07:47 | Progress Note ---
Assessment and Plan Assessment and plan: 58-year-old male with past medical history of hypertension, congestive heart failure, [place] 18 years ago presenting for complaint of shortness of breath of onset last Friday. Patient states that over the course the last 2 days his symptoms progressively worsened. He had associated symptoms of fever, dry cough, poor p.o. intake, diarrhea and generalized weakness. Ongoing evaluation and treatment for covid pneumonia Acute hypoxic respiratory failure COVID-19 pneumonia Sepsis. Present on admission. Patient met criteria given the fever, tachycardia and diagnosis of pneumonia. Transaminitis. Etiology secondary to sepsis. Chronic CHF EF of 30 to 35%. Hypertension. Hyperlipidemia. History of rheumatoid arthritis. Peripheral neuropathy. Nonsustained V. tach History of coronary artery disease status post PCI. Hypermagnesemia. Hospital Course: 03/29/2021: Cardiology evaluated patient due to 5 beats NSVT. Increased coreg, continue entresto. Patient follows with Dr Martinez. ID evaluated patient, Remdesivir started. Will continue supportive care. 03/30/2021: Respiratory distress overnight. LIkely an allergic reaction to remdesivir. Remdesivir has since been discontinued. Was on BIPAP on encounter and has since been dropped to 15 l/min salter nc. Continue supportive management. Will order inflammatory markers. 03/31/2021: Remains on salter nc 15l /min. sats 88-90% but in no distress. Continue supporitve management. Increased steroids to 60 q6hr. Obtained Pulmonology consult. CXR ordered, will follow. 04/01/2021: Remains on salter nc 12l /min. sats 88-90% but in no distress. Titrate down O2 requirements, ok with sats > 88%. Continue supporitve m anagement. Lasix 20 mg IV x 1 ordered. 04/02/2021: Remains on salter nc 12l /min. Able to ambulate without any distress but does desaturate to 78%. Sats 88-90% when resting. Titrate down O2 requirem ents, ok with sats > 88%. Lasix 40 mg IV twice daily x 2 doses ordered. Continue supportive management 04/03/2021. Remains on salter nc but decreased from 12l /min to 8 L/min. Titrate down O2 requirements, ok with sats > 88%. Continue Lasix as needed 04/04/2021. Patient's oxygen was decreased to 10 L/min but was noted to have desaturation into the 70s. Therefore, patient was placed on 15 L with nonrebreather. Continue prone positioning as able. Patient has significantly elevated D-dimer. However, Doppler studies and CTA of chest were negative. Continue to trend D-dimer along with other inflammatory markers. Prognosis is guarded 04/05/2021. Patient sitting up in a chair and states that he feels comfortable. Patient previously on nonrebreather plus Salter nasal cannula 15 L FiO2 100% wh ich has now been weaned to 8 L. Continue prone positioning as possible. Repeat D-dimer on 04/03 was still greater than 10,000 but CTA of chest and Doppler studies of lower extremities were negative. Recheck D-dimer in a.m. 04/06/2021. D-dimer is slightly decreased to ~8700. Patient remains on salter nasal cannula 8 L/min. Continue prone positioning as possible. Continue to trend inflammatory markers. 04/07/2021. Patient remains on salter nasal cannula 8 L/min. Continue prone positioning as possible. Continue to trend inflammatory markers. PT/OT. Exercise pulse oximetry testing at discharge. 04/08/2021. Patient remains on salter nasal cannula increased to 10 L/min. Continue prone positioning as possible. Continue to trend inflammatory markers. Continue IV Solu-Medrol per pulmonary recommendations. BG is stable. 04/09/2021. Patient remains on salter nasal cannula increased to 10 L/min. Continue prone positioning as possible. Continue to trend inflammatory markers. Continue IV Solu-Medrol per pulmonary recommendations. BG is stable. 04/10/2021 Patient with Covid-19 with acute resp failure . Still on Oxygen at 10 l/min. Continue current. Repeat labs in am. 04/11/2021 Patient with Covid-19 pneumonia with acute resp failure. Now on Oxygen at 6 l/min down from 10 l/min yesterday.. Pulm following. Likely dc home in few days. To obtain ambulatory pulse ox to determine need for Oxygen prior to discharge. 04/12/2021 Acute hypoxic respiratory failure due to Covid-19 pneumonia. On 11 L oxygen by nasal cannula. Has thrombocytopenia, no bleeding noted and will cynthia tor. Nonsustained V. tach, on beta-anuja. Cardiology will be informed. Will check CBC, BMP and magnesium in the morning. 04/13/2021. Acute hypoxic respiratory failure. Was on 7 L oxygen by nasal cannula earlier this morning but has been increased to 11 L oxygen due to worsening hypoxia. Thrombocytopenia is unchanged, no bleeding reported. Hypermagnesemia has resolved. Had a low-grade fever with temperature of 100 and will continue monitoring, will do further work-up if it reoccurs. No indication for antibiotic at this time. History Interval history: Has shortness of breath just by getting up from the bed. He reports that he is oxygen decreased when he got out of the bed and now on higher oxygen. Has cough which is productive. No fever or chills. Hospitalist Physical - Constitutional Vitals: Temp Pulse Resp BP Pulse Ox 98.7 F 95 H 18 139/80 95 04/13/21 05:01 04/13/21 05:01 04/13/21 05:01 04/13/21 05:01 04/13/21 05:01 General appearance: Present: no acute distress - EENT Eyes: Present: PERRL, EOM intact ENT: hearing intact - Neck Neck: Present: supple, normal ROM - Respiratory Respiratory effort: normal - Cardiovascular Rhythm: regular Heart Sounds: Present: S1 & S2 - Extremities Extremities: No edema - Abdominal General gastrointestinal: soft, non-tender, non-distended, normal bowel sounds - Integumentary Integumentary: Present: warm, dry HEART Score - HEART Score Troponin: Troponin T 0.013 ng/mL (0.00-0.029) 03/28/21 Unknown Results - Labs CBC & Chem 7: 04/13/21 06:54 04/13/21 06:54 Labs: Laboratory Last Values WBC 6.4 K/mm3 (4.5-11.0) 04/13/21 06:54 RBC 4.18 M/mm3 (3.65-5.03) 04/13/21 06:54 Hgb 12.8 gm/dl (11.8-15.2) 04/13/21 06:54 Hct 38.0 % (35.5-45.6) 04/13/21 06:54 MCV 91 fl (84-94) 04/13/21 06:54 MCH 31 pg (28-32) 04/13/21 06:54 MCHC 34 % (32-34) 04/13/21 06:54 RDW 16.4 % (13.2-15.2) H 04/13/21 06:54 Plt Count 123 K/mm3 (140-440) L 04/13/21 06:54 Lymph % (Auto) 4.6 % (13.4-35.0) L 04/13/21 06:54 [place] % (Auto) 9.6 % (0.0-7.3) H 04/13/21 06:54 Eos % (Auto) 1.7 % (0.0-4.3) 04/13/21 06:54 Baso % (Auto) 0.6 % (0.0-1.8) 04/13/21 06:54 Lymph # (Auto) 0.3 K/mm3 (1.2-5.4) L 04/13/21 06:54 [place] # (Auto) 0.6 K/mm3 (0.0-0.8) 04/13/21 06:54 Eos # (Auto) 0.1 K/mm3 (0.0-0.4) 04/13/21 06:54 Baso # (Auto) 0.0 K/mm3 (0.0-0.1) 04/13/21 06:54 Add Manual Diff Complete 04/06/21 05:03 Total Counted 100 04/06/21 05:03 Seg Neutrophils % 83.5 % (40.0-70.0) H 04/13/21 06:54 Band Neutrophils % 1.0 % 04/06/21 05:03 Lymphocytes % (Manual) 1.0 % (13.4-35.0) L 04/06/21 05:03 Monocytes % (Manual) 2.0 % (0.0-7.3) 04/06/21 05:03 Nucleated RBC % Not Reportable 04/06/21 05:03 Seg Neutrophils # 5.4 K/mm3 (1.8-7.7) 04/13/21 06:54 Seg Neutrophils # Man 11.2 K/mm3 (1.8-7.7) H 04/06/21 05:03 Band Neutrophils # 0.1 K/mm3 04/06/21 05:03 Lymphocytes # (Manual) 0.1 K/mm3 (1.2-5.4) L 04/06/21 05:03 Abs React Lymphs (Man) 0.0 K/mm3 04/06/21 05:03 Monocytes # (Manual) 0.2 K/mm3 (0.0-0.8) 04/06/21 05:03 Eosinophils # (Manual) 0.0 K/mm3 (0.0-0.4) 04/06/21 05:03 Basophils # (Manual) 0.0 K/mm3 (0.0-0.1) 04/06/21 05:03 Metamyelocytes # 0.0 K/mm3 04/06/21 05:03 Myelocytes # 0.0 K/mm3 04/06/21 05:03 Promyelocytes # 0.0 K/mm3 04/06/21 05:03 Blast Cells # 0.0 K/mm3 04/06/21 05:03 WBC Morphology Not Reportable 04/06/21 05:03 Hypersegmented Neuts Not Reportable 04/06/21 05:03 Hyposegmented Neuts Not Reportable 04/06/21 05:03 Hypogranular Neuts Not Reportable 04/06/21 05:03 Smudge Cells Not Reportable 04/06/21 05:03 Toxic Granulation Not Reportable 04/06/21 05:03 Toxic Vacuolation Not Reportable 04/06/21 05:03 Dohle Bodies Not Reportable 04/06/21 05:03 Pelger-Huet Anomaly Not Reportable 04/06/21 05:03 Adan Rods Not Reportable 04/06/21 05:03 Platelet Estimate Consistent w auto 04/06/21 05:03 Clumped Platelets Not Reportable 04/06/21 05:03 Plt Clumps, EDTA Not Reportable 04/06/21 05:03 Large Platelets Not Reportable 04/06/21 05:03 Giant Platelets Not Reportable 04/06/21 05:03 Platelet Satelliting Not Reportable 04/06/21 05:03 Plt Morphology Comment Not Reportable 04/06/21 05:03 RBC Morphology Not Reportable 04/06/21 05:03 Dimorphic RBCs Not Reportable 04/06/21 05:03 Polychromasia Not Reportable 04/06/21 05:03 Hypochromasia Not Reportable 04/06/21 05:03 Poikilocytosis 1+ 04/06/21 05:03 Anisocytosis Not Reportable 04/06/21 05:03 Microcytosis Not Reportable 04/06/21 05:03 Macrocytosis Not Reportable 04/06/21 05:03 Spherocytes Not Reportable 04/06/21 05:03 Pappenheimer Bodies Not Reportable 04/06/21 05:03 Sickle Cells Not Reportable 04/06/21 05:03 Target Cells Not Reportable 04/06/21 05:03 Tear Drop Cells Not Reportable 04/06/21 05:03 Ovalocytes Not Reportable 04/06/21 05:03 Helmet Cells Not Reportable 04/06/21 05:03 [place] Bodies Not Reportable 04/06/21 05:03 Becket Rings Not Reportable 04/06/21 05:03 [place] Cells Not Reportable 04/06/21 05:03 Bite Cells Not Reportable 04/06/21 05:03 Crenated Cell Not Reportable 04/06/21 05:03 Elliptocytes Not Reportable 04/06/21 05:03 Acanthocytes (Spur) Not Reportable 04/06/21 05:03 Rouleaux Not Reportable 04/06/21 05:03 Hemoglobin C Crystals Not Reportable 04/06/21 05:03 Schistocytes Not Reportable 04/06/21 05:03 Malaria parasites Not Reportable 04/06/21 05:03 Luke Bodies Not Reportable 04/06/21 05:03 Hem Pathologist Commnt No 04/06/21 05:03 PT 13.2 Sec. (12.2-14.9) 03/28/21 Unknown INR 0.95 (0.87-1.13) 03/28/21 Unknown APTT 38.7 Sec. (24.2-36.6) H 03/28/21 Unknown D-Dimer 8753.33 ng/mlDDU (0-234) H 04/06/21 05:03 ABG pH 7.455 pH Units (7.350-7.450) H 04/06/21 11:40 POC ABG pCO2 42.0 mmHg (32.0-48.0) 03/29/21 20:03 ABG pCO2 39.3 mm Hg 04/06/21 11:40 POC ABG pO2 51.4 mmHg (83-108) L 03/29/21 20:03 ABG pO2 69.0 mm Hg (80.0-90.0) L 04/06/21 11:40 POC ABG HCO3 18.6 03/29/21 20:03 ABG HCO3 27.0 mmol/L (20.0-26.0) H 04/06/21 11:40 ABG O2 Saturation 93.7 % (95.0-99.0) L 04/06/21 11:40 ABG O2 Content 18.1 (0.0-44) 04/06/21 11:40 POC ABG Base Excess -8.0 03/29/21 20:03 ABG Base Excess 3.0 mmol/L (-2.0-3.0) 04/06/21 11:40 ABG Hemoglobin 13.8 gm/dl (14.0-18.0) L 04/06/21 11:40 ABG Oxyhemoglobin 77.6 (94-98) L 03/29/21 20:03 ABG Carboxyhemoglobin 0.4 % (0.0-5.0) 04/06/21 11:40 ABG Methemoglobin Not Reportable 04/06/21 11:40 ABG Sodium 136.8 mmol/L (136.0-145.0) 03/29/21 20:03 ABG Potassium 4.0 mmol/L (3.40-4.50) 03/29/21 20:03 ABG Chloride 104.0 mmol/L (98-107) 03/29/21 20:03 ABG Glucose 275 mg/dL (65-95) H 03/29/21 20:03 Oxyhemoglobin 93.3 % (95.0-99.0) L 04/06/21 11:40 Carboxyhemoglobin 1.5 (0.5-1.5) 03/29/21 20:03 FiO2 21 % 04/06/21 11:40 FiO2 % 100.0 03/29/21 20:03 Sodium 137 mmol/L (137-145) 04/13/21 06:54 Potassium 4.4 mmol/L (3.6-5.0) 04/13/21 06:54 Chloride 102.8 mmol/L (98-107) 04/13/21 06:54 Carbon Dioxide 25 mmol/L (22-30) 04/13/21 06:54 Anion Gap 14 mmol/L 04/13/21 06:54 BUN 13 mg/dL (9-20) 04/13/21 06:54 Creatinine 1.0 mg/dL (0.8-1.3) 04/13/21 06:54 Estimated GFR > 60 ml/min 04/13/21 06:54 BUN/Creatinine Ratio 13 % 04/13/21 06:54 Glucose 96 mg/dL (75-100) 04/13/21 06:54 POC Glucose 160 mg/dL (70-105) H 04/02/21 21:00 Lactic Acid 1.60 mmol/L (0.7-2.0) 03/28/21 Unknown Calcium 8.6 mg/dL (8.4-10.2) 04/13/21 06:54 Magnesium 2.20 mg/dL (1.7-2.3) 04/13/21 06:54 Ferritin 1117.0 ng/mL (30.0-300.0) H 04/03/21 05:56 Total Bilirubin 0.90 mg/dL (0.1-1.2) 04/02/21 05:57 AST 42 units/L (5-40) H 04/02/21 05:57 ALT 32 units/L (7-56) 04/02/21 05:57 Alkaline Phosphatase 85 units/L (35-129) 04/02/21 05:57 Lactate Dehydrogenase 811 units/L (91-180) H 04/02/21 05:57 Troponin T 0.013 ng/mL (0.00-0.029) 03/28/21 Unknown C-Reactive Protein 1.20 mg/dL (0.00-1.30) 04/03/21 05:56 Total Protein 6.6 g/dL (6.3-8.2) 04/02/21 05:57 Albumin 3.0 g/dL (3.9-5) L 04/02/21 05:57 Albumin/Globulin Ratio 0.8 % 04/02/21 05:57 Procalcitonin 0.37 ng/mL (<0.15) 03/28/21 09:25 Arterial Blood Glucose 275 mg/dL (65-95) H 03/29/21 20:03 Arterial Blood Ionized Calcium 4.5 mg/dL (4.6-5.3) L 03/29/21 20:03 Urine Color [place] (Yellow) 03/28/21 Unknown Urine Turbidity Clear (Clear) 03/28/21 Unknown Urine pH 5.0 (5.0-7.0) 03/28/21 Unknown Ur Specific [place] 1.038 (1.003-1.030) H 03/28/21 Unknown Urine Protein >500 mg/dL (Negative) 03/28/21 Unknown Urine Glucose (UA) 50 mg/dL (Negative) 03/28/21 Unknown Urine Ketones Tr mg/dL (Negative) 03/28/21 Unknown Urine Blood Mod (Negative) 03/28/21 Unknown Urine Nitrite Neg (Negative) 03/28/21 Unknown Urine Bilirubin Neg (Negative) 03/28/21 Unknown Urine Urobilinogen 2.0 mg/dL (<2.0) 03/28/21 Unknown Ur Leukocyte Esterase Neg (Negative) 03/28/21 Unknown Urine WBC (Auto) 6.0 /HPF (0.0-6.0) 03/28/21 Unknown Urine RBC (Auto) 2.0 /HPF (0.0-6.0) 03/28/21 Unknown U Epithel Cells (Auto) < 1.0 /HPF (0-13.0) 03/28/21 Unknown Urine Mucus Few /HPF 03/28/21 Unknown Coronavirus (PCR) Positive (Negative) A 03/28/21 Unknown [place]/IV: Voiding Method Toilet Active Medications - Current Medications Current Medications: Generic Name Dose Route Start Last Admin Trade Name Freq PRN Reason Stop Dose Admin Acetaminophen 650 mg 03/28/21 12:45 Acetaminophen 325 Mg Tab PO Q4H PRN Pain MILD(1-3)/Fever >100.5/MIRANDA Albuterol 2.5 mg 04/08/21 11:23 Albuterol 2.5 Mg/3 Ml Nebu IH Q4H PRN Shortness of breath. Arformoterol Tartrate 15 mcg 04/08/21 20:00 04/12/21 22:31 Arformoterol 15 Mcg/2 Ml Nebu IH Not Given Q12HRT LISSETTE Aspirin 81 mg 03/29/21 10:00 04/12/21 10:04 Aspirin 81 Mg Tab Chew PO 81 mg QDAY LISSETTE Administration Benzonatate 100 mg 03/29/21 07:00 04/13/21 05:30 Benzonatate 100 Mg Cap PO 100 mg Q8HR LISSETTE Administration Budesonide 0.5 mg 04/08/21 20:00 04/12/21 22:31 Budesonide 0.5 Mg/2 Ml Nebu IH Not Given Q12HRT LISSETTE Carvedilol 12.5 mg 04/11/21 11:00 04/12/21 22:25 Carvedilol 12.5 Mg Tab PO 12.5 mg BID LISSETTE Administration Enoxaparin Sodium 40 mg 03/28/21 14:00 04/12/21 10:05 Enoxaparin 40 Mg/0.4 Ml Inj SUB-Q 40 mg DAILY LISSETTE Administration Protocol Gabapentin 300 mg 03/29/21 18:00 04/12/21 17:06 Gabapentin 300 Mg Cap PO 300 mg QPM LISSETTE Administration Labetalol HCl 10 mg 03/28/21 15:34 Labetalol 20 Mg/4 Ml Inj IV Q6HR PRN sbp > 160, hold for hr < 70 Miscellaneous Medication 20 mg 03/29/21 10:00 Leflunomide PO DAILY [facility] Ondansetron HCl 4 mg 03/28/21 12:45 Ondansetron 4 Mg/2 Ml Inj IV Q8H PRN Nausea And Vomiting Oxycodone/Acetaminophen 1 tab 03/28/21 12:45 04/01/21 10:36 Oxycodone /Acetaminophen 5-325mg Tab PO 1 tab Q6H PRN Administration Pain, Moderate (4-6) Pravastatin Sodium 40 mg 03/29/21 22:00 04/12/21 22:25 Pravastatin 40 Mg Tab PO 40 mg QHS LISSETTE Administration Sodium Chloride 10 ml 03/28/21 22:00 04/12/21 22:25 Sodium Chloride 0.9% 10 Ml Flush Syringe IV 10 ml BID LISSETTE Administration Sodium Chloride 10 ml 03/28/21 12:45 Sodium Chloride 0.9% 10 Ml Flush Syringe IV PRN PRN LINE FLUSH Nutrition/Malnutrition Assess - Dietary Evaluation Nutrition/Malnutrition Findings: Nutrition Notes Start: 03/29/21 14:40 Freq: Status: Active Protocol: Document 04/10/21 12:13 JADEN (Rec: 04/10/21 12:41 JADEN [email or web address]) Nutrition 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 Labs/Tests 04/06: CO2 31, BUN 22, Cr 0.7, Glu 145. Pertinent Medications 04/10: Reviewed. Height 5 ft 5 in Weight 86.5 kg [place] Body Weight (kg) 61.81 BMI 31.7 Intake Prior to Admission Excellent Weight Status Obese Subjective/Other Information Pt reported lack of appetite and diarrhea upon admission, but since, has improved. Currently Pt with regular BM. Percent of energy/protein needs met: Prescribed Cardiac Diet provides with energy/protein needs during LOS (2230 Kcal/ 85 g). Burn Absent Trauma Absent GI Symptoms None Food Allergy No Skin Integrity/Comment Integumentary; clear,warm,dry. Current % PO Good (75-100%) Minimum of two criteria No physical signs of malnutrition #1 Nutrition Diagnosis No nutrition diagnosis at this time Comments: Pt reported increased appetite and tolerance of food; currently, 100% of meals intake. Diagnosis Progress(for reassessment Improved documentation) Is patient on ventilator? No Is Patient Ambulatory and/or Out of Bed Yes REE-([place]-St. Jeor-ambulatory/OOB) [ 2030.444 [id number]] Kcal/Kg value to use for calculation 26 Approximate Energy Requirements Using 2249 kcal/Kg Calculation Used for Recommendations Kcal/kg Additional Notes Protein: 1.0-1.2 g/Kg/day; 62- 75 g/day; 248-300 Kcal/day ( from IBW). Fluids: 1.0 ml/kcal/day, or as per MD. Nutrition Intervention Change Diet Order: continue Cardiac Diet during LOS. Goal #1 Maintain body weight within +/ -3% of current BWt during LOS. Goal #2 Reach and maintain acceptable chemistry lab values during LOS. Follow-Up By: 04/17/21 Additional Comments Continue monitoring % of meals PO intake, acceptance of food , and BM.
[2021-04-13] MEDS: ARFORMOTEROL 15 MCG/2 ML NEBU IH SCH ×2 (08:46→22:34)
[2021-04-13] MEDS: BUDESONIDE 0.5 MG/2 ML NEBU IH SCH ×2 (08:46→22:33)
[2021-04-13] MEDS: ASPIRIN 81 MG TAB CHEW PO SCH (10:09)
[2021-04-13] MEDS: SACUBITRIL/VALSARTAN 49-51 MG TAB PO SCH ×2 (10:09→21:36)
[2021-04-13] MEDS: ENOXAPARIN 40 MG/0.4 ML INJ SUB-Q SCH (10:09)
[2021-04-13] MEDS: carvediloL 12.5 MG TAB PO SCH ×2 (10:16→22:18)
--- NOTE | 2021-04-13 14:00 | Progress Note ---
Assessment and Plan Acute hypoxemic respiratory failure COVID-19 virus infection Pneumonia due to COVID-19 virus CAD (coronary artery disease) HFrEF (heart failure with reduced ejection fraction) HTN - continue to wean supplemental oxygen for target O2 sat's > 90% acutely - no new issues today, continue care as below; - aspiration precautions - bronchodilators with pulmonary hygiene per RT - prn diuresis - avoid nephrotoxins, renally dose all medications - continue to avoid benzodiazepine's, reduce the possibility of delirium - s/p AB's per ID rec's (rocephin & Zithromax) - prn analgesia per pain score - Maintenance of sleep-wake cycle, avoid delirium - G.I. & VTE prophylaxis - PT/OT/ROM exercises - continue mobility protocols for pressure ulcer prophylaxis - Monitor hemodynamics closely - continue other care per attending / other consultants - discharge planning ongoing concurrently COVID SPECIFIC INTERVENTIONS - Remdesivir as per ID/Pulmonary developed protocols (Received) - continue systemic steroids for severe COVID-19 infection empirically (Solumedrol) - follow repeat COVID tests results - zinc and vitamin C supplementation - Monitor inflammatory markers per facility protocol - ferritin, Ddimer, CRP - therapeutic anticoagulation per system Protocol based on d-dimer and clinical considerations (VTE prophylaxis) - Continue contact and airborne isolation .... Re-evaluate in am & prn Subjective Date of service: 04/12/21 Principal diagnosis: Acute hypoxemic resp failure; COVID-19 infxn; Pneumonia; CAD; HFrEF; HTN Interval history: LATE ENTRY NOTE FOR DOS 04/12/2021 Patient is seen today for: Acute hypoxemic respiratory failure; COVID-19 virus infection; Pneumonia due to COVID-19 virus; CAD; HFrEF; HTN Seen and examined at bedside; 24hour events reviewed; nursing and respiratory care staff consulted; no adverse overnight events reported to me; resting in bed; continues to improve; denies chest pain, N/V/F/C; FiO2 down to [place] [id number] Objective Vital Signs - 12hr 04/13/21 04/13/21 04/13/21 02:00 05:01 12:01 Temperature 98.7 F Pulse Rate 95 H Respiratory 18 Rate Blood Pressure 139/80 O2 Sat by Pulse 96 95 91 Oximetry Constitutional: no acute distress, alert, other (elderly male with mildly increased respiratory effort at rest) Eyes: non-icteric ENT: oropharynx moist Neck: supple, no lymphadenopathy, no JVD Effort: mildly labored Ascultation: Bilateral: rhonchi Percussion: Bilateral: not dull Cardiovascular: regular rate and rhythm Gastrointestinal: normoactive bowel sounds, soft, non-tender, non-distended (protuberant) Integumentary: normal Extremities: no cyanosis, no edema Neurologic: normal mental status, non-focal exam, pupils equal and round, CN II- XII normal Psychiatric: mood appropriate, affect normal CBC and BMP: 04/13/21 06:54 04/13/21 06:54 ABG, PT/INR, D-dimer: ABG ABG pH 7.455 pH Units (7.350-7.450) H 04/06/21 11:40 POC ABG pCO2 42.0 mmHg (32.0-48.0) 03/29/21 20:03 ABG pCO2 39.3 mm Hg 04/06/21 11:40 POC ABG pO2 51.4 mmHg (83-108) L 03/29/21 20:03 ABG pO2 69.0 mm Hg (80.0-90.0) L 04/06/21 11:40 POC ABG HCO3 18.6 03/29/21 20:03 ABG O2 Saturation 93.7 % (95.0-99.0) L 04/06/21 11:40 PT/INR, D-dimer PT 13.2 Sec. (12.2-14.9) 03/28/21 Unknown INR 0.95 (0.87-1.13) 03/28/21 Unknown D-Dimer 8753.33 ng/mlDDU (0-234) H 04/06/21 05:03 Abnormal lab findings: Abnormal Labs 03/28/21 03/28/21 03/28/21 08:26 09:25 09:25 WBC RDW Plt Count Lymph % (Auto) [place] % (Auto) Lymph # (Auto) [place] # (Auto) Baso # (Auto) Seg Neutrophils % Lymphocytes % (Manual) Seg Neutrophils # Seg Neutrophils # Man Lymphocytes # (Manual) APTT D-Dimer 1100.30 H ABG pH POC ABG pO2 ABG pO2 ABG HCO3 ABG O2 Saturation ABG Hemoglobin ABG Oxyhemoglobin ABG Glucose Oxyhemoglobin Chloride Carbon Dioxide BUN Creatinine Glucose 109 H POC Glucose Calcium Magnesium 2.40 H Ferritin AST Lactate Dehydrogenase 677 H C-Reactive Protein 13.70 H Albumin Arterial Blood Glucose Arterial Blood Ionized Calcium Ur Specific [place] Coronavirus (PCR) 03/28/21 03/28/21 03/28/21 09:25 Unknown Unknown WBC RDW Plt Count 96 L Lymph % (Auto) 7.2 L [place] % (Auto) 10.8 H Lymph # (Auto) 0.5 L [place] # (Auto) Baso # (Auto) Seg Neutrophils % 81.8 H Lymphocytes % (Manual) Seg Neutrophils # Seg Neutrophils # Man Lymphocytes # (Manual) APTT D-Dimer ABG pH POC ABG pO2 ABG pO2 ABG HCO3 ABG O2 Saturation ABG Hemoglobin ABG Oxyhemoglobin ABG Glucose Oxyhemoglobin Chloride Carbon Dioxide BUN Creatinine Glucose POC Glucose Calcium Magnesium Ferritin 1340.0 H AST Lactate Dehydrogenase C-Reactive Protein Albumin Arterial Blood Glucose Arterial Blood Ionized Calcium Ur Specific [place] 1.038 H Coronavirus (PCR) 03/28/21 03/28/21 03/28/21 Unknown Unknown Unknown WBC RDW Plt Count Lymph % (Auto) [place] % (Auto) Lymph # (Auto) [place] # (Auto) Baso # (Auto) Seg Neutrophils % Lymphocytes % (Manual) Seg Neutrophils # Seg Neutrophils # Man Lymphocytes # (Manual) APTT 38.7 H D-Dimer ABG pH POC ABG pO2 ABG pO2 ABG HCO3 ABG O2 Saturation ABG Hemoglobin ABG Oxyhemoglobin ABG Glucose Oxyhemoglobin Chloride Carbon Dioxide BUN Creatinine Glucose 120 H POC Glucose Calcium Magnesium Ferritin AST 73 H Lactate Dehydrogenase C-Reactive Protein Albumin 3.4 L Arterial Blood Glucose Arterial Blood Ionized Calcium Ur Specific [place] Coronavirus (PCR) Positive A 03/29/21 03/29/21 03/29/21 02:30 02:30 02:30 WBC RDW 15.4 H Plt Count 107 L Lymph % (Auto) 5.6 L [place] % (Auto) 10.0 H Lymph # (Auto) 0.4 L [place] # (Auto) Baso # (Auto) Seg Neutrophils % 84.2 H Lymphocytes % (Manual) Seg Neutrophils # Seg Neutrophils # Man Lymphocytes # (Manual) APTT D-Dimer ABG pH POC ABG pO2 ABG pO2 ABG HCO3 ABG O2 Saturation ABG Hemoglobin ABG Oxyhemoglobin ABG Glucose Oxyhemoglobin Chloride Carbon Dioxide BUN Creatinine Glucose 128 H POC Glucose Calcium Magnesium 2.60 H Ferritin AST 64 H Lactate Dehydrogenase C-Reactive Protein Albumin 3.1 L Arterial Blood Glucose Arterial Blood Ionized Calcium Ur Specific [place] Coronavirus (PCR) 03/29/21 03/29/21 03/29/21 15:30 19:48 20:03 WBC RDW Plt Count Lymph % (Auto) [place] % (Auto) Lymph # (Auto) [place] # (Auto) Baso # (Auto) Seg Neutrophils % Lymphocytes % (Manual) Seg Neutrophils # Seg Neutrophils # Man Lymphocytes # (Manual) APTT D-Dimer ABG pH 7.264 L POC ABG pO2 51.4 L ABG pO2 ABG HCO3 ABG O2 Saturation ABG Hemoglobin ABG Oxyhemoglobin 77.6 L ABG Glucose 275 H Oxyhemoglobin Chloride Carbon Dioxide 21 L BUN Creatinine Glucose 125 H POC Glucose 189 H Calcium Magnesium Ferritin AST 64 H Lactate Dehydrogenase C-Reactive Protein Albumin 2.8 L Arterial Blood Glucose 275 H Arterial Blood Ionized Calcium 4.5 L Ur Specific [place] Coronavirus (PCR) 03/30/21 03/31/21 03/31/21 06:07 07:38 07:38 WBC 11.8 H RDW 15.4 H Plt Count Lymph % (Auto) 2.4 L [place] % (Auto) 8.4 H Lymph # (Auto) 0.3 L [place] # (Auto) 1.0 H Baso # (Auto) Seg Neutrophils % 89.0 H Lymphocytes % (Manual) Seg Neutrophils # 10.5 H Seg Neutrophils # Man Lymphocytes # (Manual) APTT D-Dimer > 03384 H ABG pH POC ABG pO2 ABG pO2 ABG HCO3 ABG O2 Saturation ABG Hemoglobin ABG Oxyhemoglobin ABG Glucose Oxyhemoglobin Chloride Carbon Dioxide BUN Creatinine Glucose 131 H POC Glucose Calcium Magnesium Ferritin AST 49 H Lactate Dehydrogenase C-Reactive Protein Albumin 2.7 L Arterial Blood Glucose Arterial Blood Ionized Calcium Ur Specific [place] Coronavirus (PCR) 03/31/21 03/31/21 04/01/21 07:38 07:38 06:37 WBC RDW Plt Count Lymph % (Auto) [place] % (Auto) Lymph # (Auto) [place] # (Auto) Baso # (Auto) Seg Neutrophils % Lymphocytes % (Manual) Seg Neutrophils # Seg Neutrophils # Man Lymphocytes # (Manual) APTT D-Dimer ABG pH POC ABG pO2 ABG pO2 ABG HCO3 ABG O2 Saturation ABG Hemoglobin ABG Oxyhemoglobin ABG Glucose Oxyhemoglobin Chloride Carbon Dioxide BUN Creatinine 0.7 L 0.7 L Glucose 122 H 117 H POC Glucose Calcium Magnesium Ferritin 1419.0 H AST 42 H 53 H Lactate Dehydrogenase 752 H C-Reactive Protein 4.40 H Albumin 2.9 L 3.2 L Arterial Blood Glucose Arterial Blood Ionized Calcium Ur Specific [place] Coronavirus (PCR) 04/02/21 04/02/21 04/02/21 05:57 05:57 05:57 WBC 13.6 H RDW 15.7 H Plt Count Lymph % (Auto) 2.3 L [place] % (Auto) 10.5 H Lymph # (Auto) 0.3 L [place] # (Auto) 1.4 H Baso # (Auto) 0.2 H Seg Neutrophils % 86.0 H Lymphocytes % (Manual) Seg Neutrophils # 11.7 H Seg Neutrophils # Man Lymphocytes # (Manual) APTT D-Dimer > 26120 H ABG pH POC ABG pO2 ABG pO2 ABG HCO3 ABG O2 Saturation ABG Hemoglobin ABG Oxyhemoglobin ABG Glucose Oxyhemoglobin Chloride Carbon Dioxide BUN 22 H Creatinine 0.7 L Glucose 149 H POC Glucose Calcium Magnesium Ferritin AST 42 H Lactate Dehydrogenase 811 H C-Reactive Protein 2.00 H Albumin 3.0 L Arterial Blood Glucose Arterial Blood Ionized Calcium Ur Specific [place] Coronavirus (PCR) 04/02/21 04/02/21 04/03/21 05:57 21:00 05:56 WBC RDW Plt Count Lymph % (Auto) [place] % (Auto) Lymph # (Auto) [place] # (Auto) Baso # (Auto) Seg Neutrophils % Lymphocytes % (Manual) Seg Neutrophils # Seg Neutrophils # Man Lymphocytes # (Manual) APTT D-Dimer > 91393 H ABG pH POC ABG pO2 ABG pO2 ABG HCO3 ABG O2 Saturation ABG Hemoglobin ABG Oxyhemoglobin ABG Glucose Oxyhemoglobin Chloride Carbon Dioxide BUN Creatinine Glucose POC Glucose 160 H Calcium Magnesium Ferritin 1180.0 H AST Lactate Dehydrogenase C-Reactive Protein Albumin Arterial Blood Glucose Arterial Blood Ionized Calcium Ur Specific [place] Coronavirus (PCR) 04/03/21 04/06/21 04/06/21 05:56 05:03 05:03 WBC 11.7 H RDW 15.6 H Plt Count Lymph % (Auto) [place] % (Auto) Lymph # (Auto) [place] # (Auto) Baso # (Auto) Seg Neutrophils % Lymphocytes % (Manual) 1.0 L Seg Neutrophils # Seg Neutrophils # Man 11.2 H Lymphocytes # (Manual) 0.1 L APTT D-Dimer 8753.33 H ABG pH POC ABG pO2 ABG pO2 ABG HCO3 ABG O2 Saturation ABG Hemoglobin ABG Oxyhemoglobin ABG Glucose Oxyhemoglobin Chloride Carbon Dioxide BUN Creatinine Glucose POC Glucose Calcium Magnesium Ferritin 1117.0 H AST Lactate Dehydrogenase C-Reactive Protein Albumin Arterial Blood Glucose Arterial Blood Ionized Calcium Ur Specific [place] Coronavirus (PCR) 04/06/21 04/06/21 04/10/21 05:03 11:40 02:30 WBC RDW Plt Count Lymph % (Auto) [place] % (Auto) Lymph # (Auto) [place] # (Auto) Baso # (Auto) Seg Neutrophils % Lymphocytes % (Manual) Seg Neutrophils # Seg Neutrophils # Man Lymphocytes # (Manual) APTT D-Dimer ABG pH 7.455 H POC ABG pO2 ABG pO2 69.0 L ABG HCO3 27.0 H ABG O2 Saturation 93.7 L ABG Hemoglobin 13.8 L ABG Oxyhemoglobin ABG Glucose Oxyhemoglobin 93.3 L Chloride Carbon Dioxide 31 H BUN 22 H Creatinine 0.7 L Glucose 145 H POC Glucose Calcium Magnesium 2.50 H Ferritin AST Lactate Dehydrogenase C-Reactive Protein Albumin Arterial Blood Glucose Arterial Blood Ionized Calcium Ur Specific [place] Coronavirus (PCR) 04/11/21 04/11/21 04/12/21 05:47 05:47 18:07 WBC RDW 16.1 H Plt Count 123 L Lymph % (Auto) [place] % (Auto) Lymph # (Auto) [place] # (Auto) Baso # (Auto) Seg Neutrophils % Lymphocytes % (Manual) Seg Neutrophils # Seg Neutrophils # Man Lymphocytes # (Manual) APTT D-Dimer ABG pH POC ABG pO2 ABG pO2 ABG HCO3 ABG O2 Saturation ABG Hemoglobin ABG Oxyhemoglobin ABG Glucose Oxyhemoglobin Chloride 107.3 H Carbon Dioxide BUN Creatinine Glucose POC Glucose Calcium 8.3 L Magnesium 2.40 H Ferritin AST Lactate Dehydrogenase C-Reactive Protein Albumin Arterial Blood Glucose Arterial Blood Ionized Calcium Ur Specific [place] Coronavirus (PCR) 04/13/21 06:54 WBC RDW 16.4 H Plt Count 123 L Lymph % (Auto) 4.6 L [place] % (Auto) 9.6 H Lymph # (Auto) 0.3 L [place] # (Auto) Baso # (Auto) Seg Neutrophils % 83.5 H Lymphocytes % (Manual) Seg Neutrophils # Seg Neutrophils # Man Lymphocytes # (Manual) APTT D-Dimer ABG pH POC ABG pO2 ABG pO2 ABG HCO3 ABG O2 Saturation ABG Hemoglobin ABG Oxyhemoglobin ABG Glucose Oxyhemoglobin Chloride Carbon Dioxide BUN Creatinine Glucose POC Glucose Calcium Magnesium Ferritin AST Lactate Dehydrogenase C-Reactive Protein Albumin Arterial Blood Glucose Arterial Blood Ionized Calcium Ur Specific [place] Coronavirus (PCR) Allied health notes reviewed: nursing
--- NOTE | 2021-04-13 14:01 | Progress Note ---
Assessment and Plan Acute hypoxemic respiratory failure COVID-19 virus infection Pneumonia due to COVID-19 virus CAD (coronary artery disease) HFrEF (heart failure with reduced ejection fraction) HTN - no major improvement in FiO2 but no worsening too - continue to wean supplemental oxygen for target O2 sat's > 90% acutely - no new issues today, continue care as below; - aspiration precautions - bronchodilators with pulmonary hygiene per RT - prn diuresis - avoid nephrotoxins, renally dose all medications - continue to avoid benzodiazepine's, reduce the possibility of delirium - s/p AB's per ID rec's (rocephin & Zithromax) - prn analgesia per pain score - Maintenance of sleep-wake cycle, avoid delirium - G.I. & VTE prophylaxis - PT/OT/ROM exercises - continue mobility protocols for pressure ulcer prophylaxis - Monitor hemodynamics closely - continue other care per attending / other consultants - discharge planning ongoing concurrently COVID SPECIFIC INTERVENTIONS - Remdesivir as per ID/Pulmonary developed protocols (Received) - continue systemic steroids for severe COVID-19 infection empirically (Solumedrol) - follow repeat COVID tests results - zinc and vitamin C supplementation - Monitor inflammatory markers per facility protocol - ferritin, Ddimer, CRP - therapeutic anticoagulation per system Protocol based on d-dimer and clinical considerations (VTE prophylaxis) - Continue contact and airborne isolation .... Re-evaluate in am & prn Subjective Date of service: 04/13/21 Principal diagnosis: Acute hypoxemic resp failure; COVID-19 infxn; Pneumonia; CAD; HFrEF; HTN Interval history: Patient is seen today for: Acute hypoxemic respiratory failure; COVID-19 virus infection; Pneumonia due to COVID-19 virus; CAD; HFrEF; HTN Seen and examined at bedside; 24hour events reviewed; nursing and respiratory care staff consulted; no adverse overnight events reported to me; resting in bed; remains on supplemental oxygen at about 50% FiO2; denies chest pain or increased SOB; no N/V/F/C Objective Vital Signs - 12hr 04/13/21 04/13/21 05:01 12:01 Temperature 98.7 F Pulse Rate 95 H Respiratory 18 Rate Blood Pressure 139/80 O2 Sat by Pulse 95 91 Oximetry Constitutional: no acute distress, alert, other (elderly male with mildly increased respiratory effort at rest) Eyes: non-icteric ENT: oropharynx moist Neck: supple, no lymphadenopathy, no JVD Effort: mildly labored Ascultation: Bilateral: rhonchi Percussion: Bilateral: not dull Cardiovascular: regular rate and rhythm Gastrointestinal: normoactive bowel sounds, soft, non-tender, non-distended (protuberant) Integumentary: normal Extremities: no cyanosis, no edema Neurologic: normal mental status, non-focal exam, pupils equal and round, CN II- XII normal Psychiatric: mood appropriate, affect normal CBC and BMP: 04/13/21 06:54 04/15/21 13:07 ABG, PT/INR, D-dimer: ABG ABG pH 7.455 pH Units (7.350-7.450) H 04/06/21 11:40 POC ABG pCO2 42.0 mmHg (32.0-48.0) 03/29/21 20:03 ABG pCO2 39.3 mm Hg 04/06/21 11:40 POC ABG pO2 51.4 mmHg (83-108) L 03/29/21 20:03 ABG pO2 69.0 mm Hg (80.0-90.0) L 04/06/21 11:40 POC ABG HCO3 18.6 03/29/21 20:03 ABG O2 Saturation 93.7 % (95.0-99.0) L 04/06/21 11:40 PT/INR, D-dimer PT 13.2 Sec. (12.2-14.9) 03/28/21 Unknown INR 0.95 (0.87-1.13) 03/28/21 Unknown D-Dimer 8753.33 ng/mlDDU (0-234) H 04/06/21 05:03 Abnormal lab findings: Abnormal Labs 03/28/21 03/28/21 03/28/21 08:26 09:25 09:25 WBC RDW Plt Count Lymph % (Auto) [place] % (Auto) Lymph # (Auto) [place] # (Auto) Baso # (Auto) Seg Neutrophils % Lymphocytes % (Manual) Seg Neutrophils # Seg Neutrophils # Man Lymphocytes # (Manual) APTT D-Dimer 1100.30 H ABG pH POC ABG pO2 ABG pO2 ABG HCO3 ABG O2 Saturation ABG Hemoglobin ABG Oxyhemoglobin ABG Glucose Oxyhemoglobin Chloride Carbon Dioxide BUN Creatinine Glucose 109 H POC Glucose Calcium Magnesium 2.40 H Ferritin AST Lactate Dehydrogenase 677 H C-Reactive Protein 13.70 H Albumin Arterial Blood Glucose Arterial Blood Ionized Calcium Ur Specific [place] Coronavirus (PCR) 03/28/21 03/28/21 03/28/21 09:25 Unknown Unknown WBC RDW Plt Count 96 L Lymph % (Auto) 7.2 L [place] % (Auto) 10.8 H Lymph # (Auto) 0.5 L [place] # (Auto) Baso # (Auto) Seg Neutrophils % 81.8 H Lymphocytes % (Manual) Seg Neutrophils # Seg Neutrophils # Man Lymphocytes # (Manual) APTT D-Dimer ABG pH POC ABG pO2 ABG pO2 ABG HCO3 ABG O2 Saturation ABG Hemoglobin ABG Oxyhemoglobin ABG Glucose Oxyhemoglobin Chloride Carbon Dioxide BUN Creatinine Glucose POC Glucose Calcium Magnesium Ferritin 1340.0 H AST Lactate Dehydrogenase C-Reactive Protein Albumin Arterial Blood Glucose Arterial Blood Ionized Calcium Ur Specific [place] 1.038 H Coronavirus (PCR) 03/28/21 03/28/21 03/28/21 Unknown Unknown Unknown WBC RDW Plt Count Lymph % (Auto) [place] % (Auto) Lymph # (Auto) [place] # (Auto) Baso # (Auto) Seg Neutrophils % Lymphocytes % (Manual) Seg Neutrophils # Seg Neutrophils # Man Lymphocytes # (Manual) APTT 38.7 H D-Dimer ABG pH POC ABG pO2 ABG pO2 ABG HCO3 ABG O2 Saturation ABG Hemoglobin ABG Oxyhemoglobin ABG Glucose Oxyhemoglobin Chloride Carbon Dioxide BUN Creatinine Glucose 120 H POC Glucose Calcium Magnesium Ferritin AST 73 H Lactate Dehydrogenase C-Reactive Protein Albumin 3.4 L Arterial Blood Glucose Arterial Blood Ionized Calcium Ur Specific [place] Coronavirus (PCR) Positive A 03/29/21 03/29/21 03/29/21 02:30 02:30 02:30 WBC RDW 15.4 H Plt Count 107 L Lymph % (Auto) 5.6 L [place] % (Auto) 10.0 H Lymph # (Auto) 0.4 L [place] # (Auto) Baso # (Auto) Seg Neutrophils % 84.2 H Lymphocytes % (Manual) Seg Neutrophils # Seg Neutrophils # Man Lymphocytes # (Manual) APTT D-Dimer ABG pH POC ABG pO2 ABG pO2 ABG HCO3 ABG O2 Saturation ABG Hemoglobin ABG Oxyhemoglobin ABG Glucose Oxyhemoglobin Chloride Carbon Dioxide BUN Creatinine Glucose 128 H POC Glucose Calcium Magnesium 2.60 H Ferritin AST 64 H Lactate Dehydrogenase C-Reactive Protein Albumin 3.1 L Arterial Blood Glucose Arterial Blood Ionized Calcium Ur Specific [place] Coronavirus (PCR) 03/29/21 03/29/21 03/29/21 15:30 19:48 20:03 WBC RDW Plt Count Lymph % (Auto) [place] % (Auto) Lymph # (Auto) [place] # (Auto) Baso # (Auto) Seg Neutrophils % Lymphocytes % (Manual) Seg Neutrophils # Seg Neutrophils # Man Lymphocytes # (Manual) APTT D-Dimer ABG pH 7.264 L POC ABG pO2 51.4 L ABG pO2 ABG HCO3 ABG O2 Saturation ABG Hemoglobin ABG Oxyhemoglobin 77.6 L ABG Glucose 275 H Oxyhemoglobin Chloride Carbon Dioxide 21 L BUN Creatinine Glucose 125 H POC Glucose 189 H Calcium Magnesium Ferritin AST 64 H Lactate Dehydrogenase C-Reactive Protein Albumin 2.8 L Arterial Blood Glucose 275 H Arterial Blood Ionized Calcium 4.5 L Ur Specific [place] Coronavirus (PCR) 03/30/21 03/31/21 03/31/21 06:07 07:38 07:38 WBC 11.8 H RDW 15.4 H Plt Count Lymph % (Auto) 2.4 L [place] % (Auto) 8.4 H Lymph # (Auto) 0.3 L [place] # (Auto) 1.0 H Baso # (Auto) Seg Neutrophils % 89.0 H Lymphocytes % (Manual) Seg Neutrophils # 10.5 H Seg Neutrophils # Man Lymphocytes # (Manual) APTT D-Dimer > 71087 H ABG pH POC ABG pO2 ABG pO2 ABG HCO3 ABG O2 Saturation ABG Hemoglobin ABG Oxyhemoglobin ABG Glucose Oxyhemoglobin Chloride Carbon Dioxide BUN Creatinine Glucose 131 H POC Glucose Calcium Magnesium Ferritin AST 49 H Lactate Dehydrogenase C-Reactive Protein Albumin 2.7 L Arterial Blood Glucose Arterial Blood Ionized Calcium Ur Specific [place] Coronavirus (PCR) 03/31/21 03/31/21 04/01/21 07:38 07:38 06:37 WBC RDW Plt Count Lymph % (Auto) [place] % (Auto) Lymph # (Auto) [place] # (Auto) Baso # (Auto) Seg Neutrophils % Lymphocytes % (Manual) Seg Neutrophils # Seg Neutrophils # Man Lymphocytes # (Manual) APTT D-Dimer ABG pH POC ABG pO2 ABG pO2 ABG HCO3 ABG O2 Saturation ABG Hemoglobin ABG Oxyhemoglobin ABG Glucose Oxyhemoglobin Chloride Carbon Dioxide BUN Creatinine 0.7 L 0.7 L Glucose 122 H 117 H POC Glucose Calcium Magnesium Ferritin 1419.0 H AST 42 H 53 H Lactate Dehydrogenase 752 H C-Reactive Protein 4.40 H Albumin 2.9 L 3.2 L Arterial Blood Glucose Arterial Blood Ionized Calcium Ur Specific [place] Coronavirus (PCR) 04/02/21 04/02/21 04/02/21 05:57 05:57 05:57 WBC 13.6 H RDW 15.7 H Plt Count Lymph % (Auto) 2.3 L [place] % (Auto) 10.5 H Lymph # (Auto) 0.3 L [place] # (Auto) 1.4 H Baso # (Auto) 0.2 H Seg Neutrophils % 86.0 H Lymphocytes % (Manual) Seg Neutrophils # 11.7 H Seg Neutrophils # Man Lymphocytes # (Manual) APTT D-Dimer > 85800 H ABG pH POC ABG pO2 ABG pO2 ABG HCO3 ABG O2 Saturation ABG Hemoglobin ABG Oxyhemoglobin ABG Glucose Oxyhemoglobin Chloride Carbon Dioxide BUN 22 H Creatinine 0.7 L Glucose 149 H POC Glucose Calcium Magnesium Ferritin AST 42 H Lactate Dehydrogenase 811 H C-Reactive Protein 2.00 H Albumin 3.0 L Arterial Blood Glucose Arterial Blood Ionized Calcium Ur Specific [place] Coronavirus (PCR) 04/02/21 04/02/21 04/03/21 05:57 21:00 05:56 WBC RDW Plt Count Lymph % (Auto) [place] % (Auto) Lymph # (Auto) [place] # (Auto) Baso # (Auto) Seg Neutrophils % Lymphocytes % (Manual) Seg Neutrophils # Seg Neutrophils # Man Lymphocytes # (Manual) APTT D-Dimer > 24036 H ABG pH POC ABG pO2 ABG pO2 ABG HCO3 ABG O2 Saturation ABG Hemoglobin ABG Oxyhemoglobin ABG Glucose Oxyhemoglobin Chloride Carbon Dioxide BUN Creatinine Glucose POC Glucose 160 H Calcium Magnesium Ferritin 1180.0 H AST Lactate Dehydrogenase C-Reactive Protein Albumin Arterial Blood Glucose Arterial Blood Ionized Calcium Ur Specific [place] Coronavirus (PCR) 04/03/21 04/06/21 04/06/21 05:56 05:03 05:03 WBC 11.7 H RDW 15.6 H Plt Count Lymph % (Auto) [place] % (Auto) Lymph # (Auto) [place] # (Auto) Baso # (Auto) Seg Neutrophils % Lymphocytes % (Manual) 1.0 L Seg Neutrophils # Seg Neutrophils # Man 11.2 H Lymphocytes # (Manual) 0.1 L APTT D-Dimer 8753.33 H ABG pH POC ABG pO2 ABG pO2 ABG HCO3 ABG O2 Saturation ABG Hemoglobin ABG Oxyhemoglobin ABG Glucose Oxyhemoglobin Chloride Carbon Dioxide BUN Creatinine Glucose POC Glucose Calcium Magnesium Ferritin 1117.0 H AST Lactate Dehydrogenase C-Reactive Protein Albumin Arterial Blood Glucose Arterial Blood Ionized Calcium Ur Specific [place] Coronavirus (PCR) 04/06/21 04/06/21 04/10/21 05:03 11:40 02:30 WBC RDW Plt Count Lymph % (Auto) [place] % (Auto) Lymph # (Auto) [place] # (Auto) Baso # (Auto) Seg Neutrophils % Lymphocytes % (Manual) Seg Neutrophils # Seg Neutrophils # Man Lymphocytes # (Manual) APTT D-Dimer ABG pH 7.455 H POC ABG pO2 ABG pO2 69.0 L ABG HCO3 27.0 H ABG O2 Saturation 93.7 L ABG Hemoglobin 13.8 L ABG Oxyhemoglobin ABG Glucose Oxyhemoglobin 93.3 L Chloride Carbon Dioxide 31 H BUN 22 H Creatinine 0.7 L Glucose 145 H POC Glucose Calcium Magnesium 2.50 H Ferritin AST Lactate Dehydrogenase C-Reactive Protein Albumin Arterial Blood Glucose Arterial Blood Ionized Calcium Ur Specific [place] Coronavirus (PCR) 04/11/21 04/11/21 04/12/21 05:47 05:47 18:07 WBC RDW 16.1 H Plt Count 123 L Lymph % (Auto) [place] % (Auto) Lymph # (Auto) [place] # (Auto) Baso # (Auto) Seg Neutrophils % Lymphocytes % (Manual) Seg Neutrophils # Seg Neutrophils # Man Lymphocytes # (Manual) APTT D-Dimer ABG pH POC ABG pO2 ABG pO2 ABG HCO3 ABG O2 Saturation ABG Hemoglobin ABG Oxyhemoglobin ABG Glucose Oxyhemoglobin Chloride 107.3 H Carbon Dioxide BUN Creatinine Glucose POC Glucose Calcium 8.3 L Magnesium 2.40 H Ferritin AST Lactate Dehydrogenase C-Reactive Protein Albumin Arterial Blood Glucose Arterial Blood Ionized Calcium Ur Specific [place] Coronavirus (PCR) 04/13/21 06:54 WBC RDW 16.4 H Plt Count 123 L Lymph % (Auto) 4.6 L [place] % (Auto) 9.6 H Lymph # (Auto) 0.3 L [place] # (Auto) Baso # (Auto) Seg Neutrophils % 83.5 H Lymphocytes % (Manual) Seg Neutrophils # Seg Neutrophils # Man Lymphocytes # (Manual) APTT D-Dimer ABG pH POC ABG pO2 ABG pO2 ABG HCO3 ABG O2 Saturation ABG Hemoglobin ABG Oxyhemoglobin ABG Glucose Oxyhemoglobin Chloride Carbon Dioxide BUN Creatinine Glucose POC Glucose Calcium Magnesium Ferritin AST Lactate Dehydrogenase C-Reactive Protein Albumin Arterial Blood Glucose Arterial Blood Ionized Calcium Ur Specific [place] Coronavirus (PCR) Allied health notes reviewed: nursing
[2021-04-13] MEDS: GABAPENTIN 300 MG CAP PO SCH (17:38)
[2021-04-13] MEDS: PRAVASTATIN 40 MG TAB PO SCH (21:37)
[2021-04-14] MEDS: BENZONATATE 100 MG CAP PO SCH ×3 (06:31→21:53)
[2021-04-14] MEDS: ARFORMOTEROL 15 MCG/2 ML NEBU IH SCH ×2 (08:43→20:58)
[2021-04-14] MEDS: BUDESONIDE 0.5 MG/2 ML NEBU IH SCH ×2 (08:43→20:59)
[2021-04-14] MEDS: ASPIRIN 81 MG TAB CHEW PO SCH (10:34)
[2021-04-14] MEDS: ENOXAPARIN 40 MG/0.4 ML INJ SUB-Q SCH (10:35)
[2021-04-14] MEDS: carvediloL 12.5 MG TAB PO SCH ×2 (10:41→21:52)
[2021-04-14] MEDS: SACUBITRIL/VALSARTAN 49-51 MG TAB PO SCH ×2 (10:42→21:52)
--- NOTE | 2021-04-14 13:04 | Progress Note ---
Assessment and Plan Assessment and plan: 58-year-old male with past medical history of hypertension, congestive heart failure, [place] 18 years ago presenting for complaint of shortness of breath of onset last Friday. Patient states that over the course the last 2 days his symptoms progressively worsened. He had associated symptoms of fever, dry cough, poor p.o. intake, diarrhea and generalized weakness. Ongoing evaluation and treatment for covid pneumonia Acute hypoxic respiratory failure COVID-19 pneumonia Sepsis. Present on admission. Patient met criteria given the fever, tachycardia and diagnosis of pneumonia. Transaminitis. Etiology secondary to sepsis. Chronic CHF EF of 30 to 35%. Hypertension. Hyperlipidemia. History of rheumatoid arthritis. Peripheral neuropathy. Nonsustained V. tach History of coronary artery disease status post PCI. Hypermagnesemia. Hospital Course: 03/29/2021: Cardiology evaluated patient due to 5 beats NSVT. Increased coreg, continue entresto. Patient follows with Dr Martinez. ID evaluated patient, Remdesivir started. Will continue supportive care. 03/30/2021: Respiratory distress overnight. LIkely an allergic reaction to remdesivir. Remdesivir has since been discontinued. Was on BIPAP on encounter and has since been dropped to 15 l/min salter nc. Continue supportive management. Will order inflammatory markers. 03/31/2021: Remains on salter nc 15l /min. sats 88-90% but in no distress. Continue supporitve management. Increased steroids to 60 q6hr. Obtained Pulmonology consult. CXR ordered, will follow. 04/01/2021: Remains on salter nc 12l /min. sats 88-90% but in no distress. Titrate down O2 requirements, ok with sats > 88%. Continue supporitve m anagement. Lasix 20 mg IV x 1 ordered. 04/02/2021: Remains on salter nc 12l /min. Able to ambulate without any distress but does desaturate to 78%. Sats 88-90% when resting. Titrate down O2 requirem ents, ok with sats > 88%. Lasix 40 mg IV twice daily x 2 doses ordered. Continue supportive management 04/03/2021. Remains on salter nc but decreased from 12l /min to 8 L/min. Titrate down O2 requirements, ok with sats > 88%. Continue Lasix as needed 04/04/2021. Patient's oxygen was decreased to 10 L/min but was noted to have desaturation into the 70s. Therefore, patient was placed on 15 L with nonrebreather. Continue prone positioning as able. Patient has significantly elevated D-dimer. However, Doppler studies and CTA of chest were negative. Continue to trend D-dimer along with other inflammatory markers. Prognosis is guarded 04/05/2021. Patient sitting up in a chair and states that he feels comfortable. Patient previously on nonrebreather plus Salter nasal cannula 15 L FiO2 100% wh ich has now been weaned to 8 L. Continue prone positioning as possible. Repeat D-dimer on 04/03 was still greater than 10,000 but CTA of chest and Doppler studies of lower extremities were negative. Recheck D-dimer in a.m. 04/06/2021. D-dimer is slightly decreased to ~8700. Patient remains on salter nasal cannula 8 L/min. Continue prone positioning as possible. Continue to trend inflammatory markers. 04/07/2021. Patient remains on salter nasal cannula 8 L/min. Continue prone positioning as possible. Continue to trend inflammatory markers. PT/OT. Exercise pulse oximetry testing at discharge. 04/08/2021. Patient remains on salter nasal cannula increased to 10 L/min. Continue prone positioning as possible. Continue to trend inflammatory markers. Continue IV Solu-Medrol per pulmonary recommendations. BG is stable. 04/09/2021. Patient remains on salter nasal cannula increased to 10 L/min. Continue prone positioning as possible. Continue to trend inflammatory markers. Continue IV Solu-Medrol per pulmonary recommendations. BG is stable. 04/10/2021 Patient with Covid-19 with acute resp failure . Still on Oxygen at 10 l/min. Continue current. Repeat labs in am. 04/11/2021 Patient with Covid-19 pneumonia with acute resp failure. Now on Oxygen at 6 l/min down from 10 l/min yesterday.. Pulm following. Likely dc home in few days. To obtain ambulatory pulse ox to determine need for Oxygen prior to discharge. 04/12/2021 Acute hypoxic respiratory failure due to Covid-19 pneumonia. On 11 L oxygen by nasal cannula. Has thrombocytopenia, no bleeding noted and will cynthia tor. Nonsustained V. tach, on beta-anuja. Cardiology will be informed. Will check CBC, BMP and magnesium in the morning. 04/13/2021. Acute hypoxic respiratory failure. Was on 7 L oxygen by nasal cannula earlier this morning but has been increased to 11 L oxygen due to worsening hypoxia. Thrombocytopenia is unchanged, no bleeding reported. Hypermagnesemia has resolved. Had a low-grade fever with temperature of 100 and will continue monitoring, will do further work-up if it reoccurs. No indication for antibiotic at this time. 04/13/2021 Patient with Covid-19 pneumonia with acute resp failure. Now on oxygen at 15 l/min, non rebreather. History Interval history: Still gets Shortness of breath on exertion Hospitalist Physical - Physical exam Narrative exam: Gen: Not in acute distress, lying in bed, On Oxygen by NC,obese HEENT: Normocephalic, atraumatic Lungs: Bilateral rales, no wheeze Heart: S1 and S2 reg, no murmurs, rubs or gallop Abd:soft, non-tender, non distended, normal bowel sounds Ext: No edema, clubbing or cyanosis Neuro: Awake, alert, oriented X 3, moves all extremities - Constitutional Vitals: Temp Pulse Resp BP Pulse Ox 97.4 F L 112 H 24 125/75 98 04/14/21 11:01 04/14/21 11:01 04/14/21 11:01 04/14/21 11:01 04/14/21 11:01 General appearance: Present: no acute distress HEART Score - HEART Score Troponin: Troponin T 0.013 ng/mL (0.00-0.029) 03/28/21 Unknown Results - Labs CBC & Chem 7: 04/13/21 06:54 04/13/21 06:54 Labs: Laboratory Last Values WBC 6.4 K/mm3 (4.5-11.0) 04/13/21 06:54 RBC 4.18 M/mm3 (3.65-5.03) 04/13/21 06:54 Hgb 12.8 gm/dl (11.8-15.2) 04/13/21 06:54 Hct 38.0 % (35.5-45.6) 04/13/21 06:54 MCV 91 fl (84-94) 04/13/21 06:54 MCH 31 pg (28-32) 04/13/21 06:54 MCHC 34 % (32-34) 04/13/21 06:54 RDW 16.4 % (13.2-15.2) H 04/13/21 06:54 Plt Count 123 K/mm3 (140-440) L 04/13/21 06:54 Lymph % (Auto) 4.6 % (13.4-35.0) L 04/13/21 06:54 [place] % (Auto) 9.6 % (0.0-7.3) H 04/13/21 06:54 Eos % (Auto) 1.7 % (0.0-4.3) 04/13/21 06:54 Baso % (Auto) 0.6 % (0.0-1.8) 04/13/21 06:54 Lymph # (Auto) 0.3 K/mm3 (1.2-5.4) L 04/13/21 06:54 [place] # (Auto) 0.6 K/mm3 (0.0-0.8) 04/13/21 06:54 Eos # (Auto) 0.1 K/mm3 (0.0-0.4) 04/13/21 06:54 Baso # (Auto) 0.0 K/mm3 (0.0-0.1) 04/13/21 06:54 Add Manual Diff Complete 04/06/21 05:03 Total Counted 100 04/06/21 05:03 Seg Neutrophils % 83.5 % (40.0-70.0) H 04/13/21 06:54 Band Neutrophils % 1.0 % 04/06/21 05:03 Lymphocytes % (Manual) 1.0 % (13.4-35.0) L 04/06/21 05:03 Monocytes % (Manual) 2.0 % (0.0-7.3) 04/06/21 05:03 Nucleated RBC % Not Reportable 04/06/21 05:03 Seg Neutrophils # 5.4 K/mm3 (1.8-7.7) 04/13/21 06:54 Seg Neutrophils # Man 11.2 K/mm3 (1.8-7.7) H 04/06/21 05:03 Band Neutrophils # 0.1 K/mm3 04/06/21 05:03 Lymphocytes # (Manual) 0.1 K/mm3 (1.2-5.4) L 04/06/21 05:03 Abs React Lymphs (Man) 0.0 K/mm3 04/06/21 05:03 Monocytes # (Manual) 0.2 K/mm3 (0.0-0.8) 04/06/21 05:03 Eosinophils # (Manual) 0.0 K/mm3 (0.0-0.4) 04/06/21 05:03 Basophils # (Manual) 0.0 K/mm3 (0.0-0.1) 04/06/21 05:03 Metamyelocytes # 0.0 K/mm3 04/06/21 05:03 Myelocytes # 0.0 K/mm3 04/06/21 05:03 Promyelocytes # 0.0 K/mm3 04/06/21 05:03 Blast Cells # 0.0 K/mm3 04/06/21 05:03 WBC Morphology Not Reportable 04/06/21 05:03 Hypersegmented Neuts Not Reportable 04/06/21 05:03 Hyposegmented Neuts Not Reportable 04/06/21 05:03 Hypogranular Neuts Not Reportable 04/06/21 05:03 Smudge Cells Not Reportable 04/06/21 05:03 Toxic Granulation Not Reportable 04/06/21 05:03 Toxic Vacuolation Not Reportable 04/06/21 05:03 Dohle Bodies Not Reportable 04/06/21 05:03 Pelger-Huet Anomaly Not Reportable 04/06/21 05:03 Adan Rods Not Reportable 04/06/21 05:03 Platelet Estimate Consistent w auto 04/06/21 05:03 Clumped Platelets Not Reportable 04/06/21 05:03 Plt Clumps, EDTA Not Reportable 04/06/21 05:03 Large Platelets Not Reportable 04/06/21 05:03 Giant Platelets Not Reportable 04/06/21 05:03 Platelet Satelliting Not Reportable 04/06/21 05:03 Plt Morphology Comment Not Reportable 04/06/21 05:03 RBC Morphology Not Reportable 04/06/21 05:03 Dimorphic RBCs Not Reportable 04/06/21 05:03 Polychromasia Not Reportable 04/06/21 05:03 Hypochromasia Not Reportable 04/06/21 05:03 Poikilocytosis 1+ 04/06/21 05:03 Anisocytosis Not Reportable 04/06/21 05:03 Microcytosis Not Reportable 04/06/21 05:03 Macrocytosis Not Reportable 04/06/21 05:03 Spherocytes Not Reportable 04/06/21 05:03 Pappenheimer Bodies Not Reportable 04/06/21 05:03 Sickle Cells Not Reportable 04/06/21 05:03 Target Cells Not Reportable 04/06/21 05:03 Tear Drop Cells Not Reportable 04/06/21 05:03 Ovalocytes Not Reportable 04/06/21 05:03 Helmet Cells Not Reportable 04/06/21 05:03 [place] Bodies Not Reportable 04/06/21 05:03 [place] Rings Not Reportable 04/06/21 05:03 Tushar Cells Not Reportable 04/06/21 05:03 Bite Cells Not Reportable 04/06/21 05:03 Crenated Cell Not Reportable 04/06/21 05:03 Elliptocytes Not Reportable 04/06/21 05:03 Acanthocytes (Spur) Not Reportable 04/06/21 05:03 Rouleaux Not Reportable 04/06/21 05:03 Hemoglobin C Crystals Not Reportable 04/06/21 05:03 Schistocytes Not Reportable 04/06/21 05:03 Malaria parasites Not Reportable 04/06/21 05:03 Luke Bodies Not Reportable 04/06/21 05:03 Hem Pathologist Commnt No 04/06/21 05:03 PT 13.2 Sec. (12.2-14.9) 03/28/21 Unknown INR 0.95 (0.87-1.13) 03/28/21 Unknown APTT 38.7 Sec. (24.2-36.6) H 03/28/21 Unknown D-Dimer 8753.33 ng/mlDDU (0-234) H 04/06/21 05:03 ABG pH 7.455 pH Units (7.350-7.450) H 04/06/21 11:40 POC ABG pCO2 42.0 mmHg (32.0-48.0) 03/29/21 20:03 ABG pCO2 39.3 mm Hg 04/06/21 11:40 POC ABG pO2 51.4 mmHg (83-108) L 03/29/21 20:03 ABG pO2 69.0 mm Hg (80.0-90.0) L 04/06/21 11:40 POC ABG HCO3 18.6 03/29/21 20:03 ABG HCO3 27.0 mmol/L (20.0-26.0) H 04/06/21 11:40 ABG O2 Saturation 93.7 % (95.0-99.0) L 04/06/21 11:40 ABG O2 Content 18.1 (0.0-44) 04/06/21 11:40 POC ABG Base Excess -8.0 03/29/21 20:03 ABG Base Excess 3.0 mmol/L (-2.0-3.0) 04/06/21 11:40 ABG Hemoglobin 13.8 gm/dl (14.0-18.0) L 04/06/21 11:40 ABG Oxyhemoglobin 77.6 (94-98) L 03/29/21 20:03 ABG Carboxyhemoglobin 0.4 % (0.0-5.0) 04/06/21 11:40 ABG Methemoglobin Not Reportable 04/06/21 11:40 ABG Sodium 136.8 mmol/L (136.0-145.0) 03/29/21 20:03 ABG Potassium 4.0 mmol/L (3.40-4.50) 03/29/21 20:03 ABG Chloride 104.0 mmol/L (98-107) 03/29/21 20:03 ABG Glucose 275 mg/dL (65-95) H 03/29/21 20:03 Oxyhemoglobin 93.3 % (95.0-99.0) L 04/06/21 11:40 Carboxyhemoglobin 1.5 (0.5-1.5) 03/29/21 20:03 FiO2 21 % 04/06/21 11:40 FiO2 % 100.0 03/29/21 20:03 Sodium 137 mmol/L (137-145) 04/13/21 06:54 Potassium 4.4 mmol/L (3.6-5.0) 04/13/21 06:54 Chloride 102.8 mmol/L (98-107) 04/13/21 06:54 Carbon Dioxide 25 mmol/L (22-30) 04/13/21 06:54 Anion Gap 14 mmol/L 04/13/21 06:54 BUN 13 mg/dL (9-20) 04/13/21 06:54 Creatinine 1.0 mg/dL (0.8-1.3) 04/13/21 06:54 Estimated GFR > 60 ml/min 04/13/21 06:54 BUN/Creatinine Ratio 13 % 04/13/21 06:54 Glucose 96 mg/dL (75-100) 04/13/21 06:54 POC Glucose 160 mg/dL (70-105) H 04/02/21 21:00 Lactic Acid 1.60 mmol/L (0.7-2.0) 03/28/21 Unknown Calcium 8.6 mg/dL (8.4-10.2) 04/13/21 06:54 Magnesium 2.20 mg/dL (1.7-2.3) 04/13/21 06:54 Ferritin 1117.0 ng/mL (30.0-300.0) H 04/03/21 05:56 Total Bilirubin 0.90 mg/dL (0.1-1.2) 04/02/21 05:57 AST 42 units/L (5-40) H 04/02/21 05:57 ALT 32 units/L (7-56) 04/02/21 05:57 Alkaline Phosphatase 85 units/L (35-129) 04/02/21 05:57 Lactate Dehydrogenase 811 units/L (91-180) H 04/02/21 05:57 Troponin T 0.013 ng/mL (0.00-0.029) 03/28/21 Unknown C-Reactive Protein 1.20 mg/dL (0.00-1.30) 04/03/21 05:56 Total Protein 6.6 g/dL (6.3-8.2) 04/02/21 05:57 Albumin 3.0 g/dL (3.9-5) L 04/02/21 05:57 Albumin/Globulin Ratio 0.8 % 04/02/21 05:57 Procalcitonin 0.37 ng/mL (<0.15) 03/28/21 09:25 Arterial Blood Glucose 275 mg/dL (65-95) H 03/29/21 20:03 Arterial Blood Ionized Calcium 4.5 mg/dL (4.6-5.3) L 03/29/21 20:03 Urine Color [place] (Yellow) 03/28/21 Unknown Urine Turbidity Clear (Clear) 03/28/21 Unknown Urine pH 5.0 (5.0-7.0) 03/28/21 Unknown Ur Specific [place] 1.038 (1.003-1.030) H 03/28/21 Unknown Urine Protein >500 mg/dL (Negative) 03/28/21 Unknown Urine Glucose (UA) 50 mg/dL (Negative) 03/28/21 Unknown Urine Ketones Tr mg/dL (Negative) 03/28/21 Unknown Urine Blood Mod (Negative) 03/28/21 Unknown Urine Nitrite Neg (Negative) 03/28/21 Unknown Urine Bilirubin Neg (Negative) 03/28/21 Unknown Urine Urobilinogen 2.0 mg/dL (<2.0) 03/28/21 Unknown Ur Leukocyte Esterase Neg (Negative) 03/28/21 Unknown Urine WBC (Auto) 6.0 /HPF (0.0-6.0) 03/28/21 Unknown Urine RBC (Auto) 2.0 /HPF (0.0-6.0) 03/28/21 Unknown U Epithel Cells (Auto) < 1.0 /HPF (0-13.0) 03/28/21 Unknown Urine Mucus Few /HPF 03/28/21 Unknown Coronavirus (PCR) Positive (Negative) A 03/28/21 Unknown [place]oney/IV: Voiding Method Urinal Active Medications - Current Medications Current Medications: Generic Name Dose Route Start Last Admin Trade Name Freq PRN Reason Stop Dose Admin Acetaminophen 650 mg 03/28/21 12:45 Acetaminophen 325 Mg Tab PO Q4H PRN Pain MILD(1-3)/Fever >100.5/MIRANDA Albuterol 2.5 mg 04/08/21 11:23 Albuterol 2.5 Mg/3 Ml Nebu IH Q4H PRN Shortness of breath. Arformoterol Tartrate 15 mcg 04/08/21 20:00 04/14/21 08:43 Arformoterol 15 Mcg/2 Ml Nebu IH 15 mcg Q12HRT LISSETTE Administration Aspirin 81 mg 03/29/21 10:00 04/14/21 10:34 Aspirin 81 Mg Tab Chew PO 81 mg QDAY LISSETTE Administration Benzonatate 100 mg 03/29/21 07:00 04/14/21 06:31 Benzonatate 100 Mg Cap PO 100 mg Q8HR LISSETTE Administration Budesonide 0.5 mg 04/08/21 20:00 04/14/21 08:43 Budesonide 0.5 Mg/2 Ml Nebu IH 0.5 mg Q12HRT LISSETTE Administration Carvedilol 12.5 mg 04/11/21 11:00 04/14/21 10:41 Carvedilol 12.5 Mg Tab PO 12.5 mg BID LISSETTE Administration Enoxaparin Sodium 40 mg 03/28/21 14:00 04/14/21 10:35 Enoxaparin 40 Mg/0.4 Ml Inj SUB-Q 40 mg DAILY LISSETTE Administration Protocol Gabapentin 300 mg 03/29/21 18:00 04/13/21 17:38 Gabapentin 300 Mg Cap PO 300 mg QPM LISSETTE Administration Labetalol HCl 10 mg 03/28/21 15:34 Labetalol 20 Mg/4 Ml Inj IV Q6HR PRN sbp > 160, hold for hr < 70 Ondansetron HCl 4 mg 03/28/21 12:45 Ondansetron 4 Mg/2 Ml Inj IV Q8H PRN Nausea And Vomiting Oxycodone/Acetaminophen 1 tab 03/28/21 12:45 04/01/21 10:36 Oxycodone /Acetaminophen 5-325mg Tab PO 1 tab Q6H PRN Administration Pain, Moderate (4-6) Pravastatin Sodium 40 mg 03/29/21 22:00 04/13/21 21:37 Pravastatin 40 Mg Tab PO 40 mg QHS LISSETTE Administration Sodium Chloride 10 ml 03/28/21 22:00 04/14/21 10:35 Sodium Chloride 0.9% 10 Ml Flush Syringe IV 10 ml BID LISSETTE Administration Sodium Chloride 10 ml 03/28/21 12:45 Sodium Chloride 0.9% 10 Ml Flush Syringe IV PRN PRN LINE FLUSH Nutrition/Malnutrition Assess - Dietary Evaluation Nutrition/Malnutrition Findings: Nutrition Notes Start: 03/29/21 14:40 Freq: Status: Active Protocol: Document 04/10/21 12:13 JADEN (Rec: 04/10/21 12:41 JADEN [email or web address]) Nutrition Notes Need for Assessment generated from: nutrition services worker Initial or Follow up Reassessment Current Diagnosis Heart Failure Other Pertinent Diagnosis Pneumonia, possible assoc w/ COVID-19 Current Diet Cardiac Diet, since 03/28. Labs/Tests 04/06: CO2 31, BUN 22, Cr 0.7, Glu 145. Pertinent Medications 04/10: Reviewed. Height 5 ft 5 in Weight 86.5 kg [place] Body Weight (kg) 61.81 BMI 31.7 Intake Prior to Admission Excellent Weight Status Obese Subjective/Other Information Pt reported lack of appetite and diarrhea upon admission, but since, has improved. Currently Pt with regular BM. Percent of energy/protein needs met: Prescribed Cardiac Diet provides with energy/protein needs during LOS (2230 Kcal/ 85 g). Burn Absent Trauma Absent GI Symptoms None Food Allergy No Skin Integrity/Comment Integumentary; clear,warm,dry. Current % PO Good (75-100%) Minimum of two criteria No physical signs of malnutrition #1 Nutrition Diagnosis No nutrition diagnosis at this time Comments: Pt reported increased appetite and tolerance of food; currently, 100% of meals intake. Diagnosis Progress(for reassessment Improved documentation) Is patient on ventilator? No Is Patient Ambulatory and/or Out of Bed Yes REE-([place]. Jeor-ambulatory/OOB) [ 2030.444 [id number]] Kcal/Kg value to use for calculation 26 Approximate Energy Requirements Using 2249 kcal/Kg Calculation Used for Recommendations Kcal/kg Additional Notes Protein: 1.0-1.2 g/Kg/day; 62- 75 g/day; 248-300 Kcal/day ( from IBW). Fluids: 1.0 ml/kcal/day, or as per MD. Nutrition Intervention Change Diet Order: continue Cardiac Diet during LOS. Goal #1 Maintain body weight within +/ -3% of current BWt during LOS. Goal #2 Reach and maintain acceptable chemistry lab values during LOS. Follow-Up By: 04/17/21 Additional Comments Continue monitoring % of meals PO intake, acceptance of food , and BM.
--- NOTE | 2021-04-14 15:29 | Progress Note ---
Assessment and Plan 66-year-old male with past medical history of hypertension, congestive heart failure, [place] 18 years ago presenting for complaint of shortness of breath of onset last Friday. Patient was seen and evaluated at our emergency department 2 days ago for similar symptoms. He was believed to have symptoms consistent with Covid 19 viral illness . He was discharged with prescriptions for Tessalon Perles and albuterol nebulizer and instructed to obtain outpatient COVID-19 testing. Patient states that over the course the last 2 days his sym ptoms progressively worsened. He had associated symptoms of fever, dry cough, poor p.o. intake, diarrhea and generalized weakness. Medications prescribed 2 days ago did not relieve symptoms. When patient had near syncopal event, who is a chargeback specialist at our facility recommended he come back to our hospital to be evaluated and treated. On arrival patient was found to be hypoxic with saturations of 80%. This improved to 93% on my encounter, patient was on 4 L nasal cannula. Of note he does have a history of congestive heart failure. He could not remember the name of his current showplace manager however he did used to follow with Dr. Pabon from [facility]. He did not know what his ejection fraction was but did state he is currently taking Entresto and Coreg for his congestive heart failure. Moreover, patient has been vaccinated against COVID-19 receiving in both doses of the Pfizer vaccine back in . He denied any known sick contacts except for his who had similar symptoms but recovered uneventfully. She was not tested but is vaccinated against COVID-19. Patient has no history of smoking, alcohol or drug abuse. 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 ED Course: Azithromycin IV, Rocephin IV, Decadron IV, albuterol nebulizer Patient awake.Alert, Resting in bed. Patients O2 requirements went up again.. Patient is on 16 litres O2 and on non rebreathing mask. O2 saturation 98%. Denies chest pain, shortness of breath or cough. Patient afebrile. No leukocytosis . Blood pressure 125/75, Pulse 112. Chest xray done 03/28/21 reported Stable mild perihilar prominence. No consolidation, pleural effusion or pneumothorax. Patient has Angio CT of chest done 03/28/21 reported No evidence of pulmonary thromboembolism . Extensive bilateral pneumonitis, probably viral Chest xray done 04/08/21 reported Improved aeration with persistence of multifocal airspace opacities. Patient presently on Enoxaparin, Benzonatate, Brovana, Albuterol inhaler and Budesonide aerosol treatments. Patient finished course of Ceftriaxone, Zithromax. - Patient Problems (1) Acute respiratory failure with hypoxia Current Visit: Yes Status: Acute Plan to address problem: Patient is on 15 litres O2 and also non rebreathing mask Continue Albuterol inhaler, budesonide, and brovana. Continue S/C Enoxaparin (2) COVID-19 virus infection Current Visit: Yes Status: Acute Plan to address problem: S/C Lovenox. Management as per infectious diseases. (3) Pneumonia due to COVID-19 virus Current Visit: Yes Status: Acute Plan to address problem: Patient was on ceftriaxone and Zithromax. (4) CAD (coronary artery disease) Current Visit: Yes Status: Acute Plan to address problem: Management as per cardiology. (5) HFrEF (heart failure with reduced ejection fraction) Current Visit: Yes Status: Acute Plan to address problem: Management as per cardiology. (6) HTN (hypertension) Current Visit: Yes Status: Acute Plan to address problem: Management as per primary care. Subjective Date of service: 04/14/21 Principal diagnosis: Acute hypoxemic resp failure; COVID-19 infxn; Pneumonia; CAD; HFrEF; HTN Interval history: 66-year-old male with past medical history of hypertension, congestive heart failure, [place] 18 years ago presenting for complaint of shortness of breath of onset last Friday. Patient was seen and evaluated at our emergency department 2 days ago for similar symptoms. He was believed to have symptoms consistent with Covid 19 viral illness . He was discharged with prescriptions for Tessalon Perles and albuterol nebulizer and instructed to obtain outpatient COVID-19 testing. Patient states that over the course the last 2 days his symptoms progressively worsened. He had associated symptoms of fever, dry cough, poor p.o. intake, diarrhea and generalized weakness. Medications prescribed 2 days ago did not relieve symptoms. When patient had near syncopal event, who is a chargeback specialist at our facility recommended he come back to our hospital to be evaluated and treated. On arrival patient was found to be hypoxic with saturations of 80%. This improved to 93% on my encounter, patient was on 4 L nasal cannula. Of note he does have a history of congestive heart failure. He could not remember the name of his current showplace manager however he did used to follow with Dr. Pabon from [facility]. He did not know what his ejection fraction was but did state he is currently taking Entresto and Coreg for his congestive heart failure. Moreover, patient has been vaccinated against COVID-19 receiving in both doses of the Pfizer vaccine back in . He denied any known sick contacts except for his who had similar symptoms but recovered uneventfully. She was not tested but is vaccinated against COVID-19. Patient has no history of smoking, alcohol or drug abuse. 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 ED Course: Azithromycin IV, Rocephin IV, Decadron IV, albuterol nebulizer Patient awake.Alert, Resting in bed. Patients O2 requirements went up again.. Patient is on 16 litres O2 and on non rebreathing mask. O2 saturation 98%. Denies chest pain, shortness of breath or cough. Patient afebrile. No leukocytosis . Blood pressure 125/75, Pulse 112. Chest xray done 03/28/21 reported Stable mild perihilar prominence. No consolidation, pleural effusion or pneumothorax. Patient has Angio CT of chest 03/28/21 reported No evidence of pulmonary thromboembolism . Extensive bilateral pneumonitis, probably viral Chest xray done 04/08/21 reported Improved aeration with persistence of mul tifocal airspace opacities. Patient presently on Enoxaparin, Benzonatate, Brovana, Albuterol inhaler and Budesonide aerosol treatments. Patient finished course of Ceftriaxone, Zithromax Objective Vital Signs - 12hr 04/14/21 04/14/21 04/14/21 04:20 08:43 10:41 Temperature 99.0 F Pulse Rate 101 H 115 H Pulse Rate [ 108 H Bilateral Throughout] Respiratory 18 Rate Respiratory 24 Rate [Bilateral Throughout] Blood Pressure 118/69 138/90 O2 Sat by Pulse 97 96 Oximetry 04/14/21 11:01 Temperature 97.4 F L Pulse Rate 112 H Pulse Rate [ Bilateral Throughout] Respiratory 24 Rate Respiratory Rate [Bilateral Throughout] Blood Pressure 125/75 O2 Sat by Pulse 98 Oximetry Constitutional: no acute distress, alert, other (elderly male with mildly increased respiratory effort at rest) Eyes: non-icteric ENT: oropharynx moist Neck: supple, no lymphadenopathy, no JVD Effort: mildly labored Ascultation: Bilateral: rhonchi Percussion: Bilateral: not dull Cardiovascular: regular rate and rhythm Gastrointestinal: normoactive bowel sounds, soft, non-tender, non-distended (protuberant) Integumentary: normal Extremities: no cyanosis, no edema Neurologic: normal mental status, non-focal exam, pupils equal and round, CN II- XII normal Psychiatric: mood appropriate, affect normal CBC and BMP: 04/13/21 06:54 04/13/21 06:54 ABG, PT/INR, D-dimer: ABG ABG pH 7.455 pH Units (7.350-7.450) H 04/06/21 11:40 POC ABG pCO2 42.0 mmHg (32.0-48.0) 03/29/21 20:03 ABG pCO2 39.3 mm Hg 04/06/21 11:40 POC ABG pO2 51.4 mmHg (83-108) L 03/29/21 20:03 ABG pO2 69.0 mm Hg (80.0-90.0) L 04/06/21 11:40 POC ABG HCO3 18.6 03/29/21 20:03 ABG O2 Saturation 93.7 % (95.0-99.0) L 04/06/21 11:40 PT/INR, D-dimer PT 13.2 Sec. (12.2-14.9) 03/28/21 Unknown INR 0.95 (0.87-1.13) 03/28/21 Unknown D-Dimer 8753.33 ng/mlDDU (0-234) H 04/06/21 05:03 Abnormal lab findings: Abnormal Labs 03/28/21 03/28/21 03/28/21 08:26 09:25 09:25 WBC RDW Plt Count Lymph % (Auto) [place] % (Auto) Lymph # (Auto) [place] # (Auto) Baso # (Auto) Seg Neutrophils % Lymphocytes % (Manual) Seg Neutrophils # Seg Neutrophils # Man Lymphocytes # (Manual) APTT D-Dimer 1100.30 H ABG pH POC ABG pO2 ABG pO2 ABG HCO3 ABG O2 Saturation ABG Hemoglobin ABG Oxyhemoglobin ABG Glucose Oxyhemoglobin Chloride Carbon Dioxide BUN Creatinine Glucose 109 H POC Glucose Calcium Magnesium 2.40 H Ferritin AST Lactate Dehydrogenase 677 H C-Reactive Protein 13.70 H Albumin Arterial Blood Glucose Arterial Blood Ionized Calcium Ur Specific [place] Coronavirus (PCR) 03/28/21 03/28/21 03/28/21 09:25 Unknown Unknown WBC RDW Plt Count 96 L Lymph % (Auto) 7.2 L [place] % (Auto) 10.8 H Lymph # (Auto) 0.5 L [place] # (Auto) Baso # (Auto) Seg Neutrophils % 81.8 H Lymphocytes % (Manual) Seg Neutrophils # Seg Neutrophils # Man Lymphocytes # (Manual) APTT D-Dimer ABG pH POC ABG pO2 ABG pO2 ABG HCO3 ABG O2 Saturation ABG Hemoglobin ABG Oxyhemoglobin ABG Glucose Oxyhemoglobin Chloride Carbon Dioxide BUN Creatinine Glucose POC Glucose Calcium Magnesium Ferritin 1340.0 H AST Lactate Dehydrogenase C-Reactive Protein Albumin Arterial Blood Glucose Arterial Blood Ionized Calcium Ur Specific [place] 1.038 H Coronavirus (PCR) 03/28/21 03/28/21 03/28/21 Unknown Unknown Unknown WBC RDW Plt Count Lymph % (Auto) [place] % (Auto) Lymph # (Auto) [place] # (Auto) Baso # (Auto) Seg Neutrophils % Lymphocytes % (Manual) Seg Neutrophils # Seg Neutrophils # Man Lymphocytes # (Manual) APTT 38.7 H D-Dimer ABG pH POC ABG pO2 ABG pO2 ABG HCO3 ABG O2 Saturation ABG Hemoglobin ABG Oxyhemoglobin ABG Glucose Oxyhemoglobin Chloride Carbon Dioxide BUN Creatinine Glucose 120 H POC Glucose Calcium Magnesium Ferritin AST 73 H Lactate Dehydrogenase C-Reactive Protein Albumin 3.4 L Arterial Blood Glucose Arterial Blood Ionized Calcium Ur Specific [place] Coronavirus (PCR) Positive A 03/29/21 03/29/21 03/29/21 02:30 02:30 02:30 WBC RDW 15.4 H Plt Count 107 L Lymph % (Auto) 5.6 L [place] % (Auto) 10.0 H Lymph # (Auto) 0.4 L [place] # (Auto) Baso # (Auto) Seg Neutrophils % 84.2 H Lymphocytes % (Manual) Seg Neutrophils # Seg Neutrophils # Man Lymphocytes # (Manual) APTT D-Dimer ABG pH POC ABG pO2 ABG pO2 ABG HCO3 ABG O2 Saturation ABG Hemoglobin ABG Oxyhemoglobin ABG Glucose Oxyhemoglobin Chloride Carbon Dioxide BUN Creatinine Glucose 128 H POC Glucose Calcium Magnesium 2.60 H Ferritin AST 64 H Lactate Dehydrogenase C-Reactive Protein Albumin 3.1 L Arterial Blood Glucose Arterial Blood Ionized Calcium Ur Specific [place] Coronavirus (PCR) 03/29/21 03/29/21 03/29/21 15:30 19:48 20:03 WBC RDW Plt Count Lymph % (Auto) [place] % (Auto) Lymph # (Auto) [place] # (Auto) Baso # (Auto) Seg Neutrophils % Lymphocytes % (Manual) Seg Neutrophils # Seg Neutrophils # Man Lymphocytes # (Manual) APTT D-Dimer ABG pH 7.264 L POC ABG pO2 51.4 L ABG pO2 ABG HCO3 ABG O2 Saturation ABG Hemoglobin ABG Oxyhemoglobin 77.6 L ABG Glucose 275 H Oxyhemoglobin Chloride Carbon Dioxide 21 L BUN Creatinine Glucose 125 H POC Glucose 189 H Calcium Magnesium Ferritin AST 64 H Lactate Dehydrogenase C-Reactive Protein Albumin 2.8 L Arterial Blood Glucose 275 H Arterial Blood Ionized Calcium 4.5 L Ur Specific [place] Coronavirus (PCR) 03/30/21 03/31/21 03/31/21 06:07 07:38 07:38 WBC 11.8 H RDW 15.4 H Plt Count Lymph % (Auto) 2.4 L [place] % (Auto) 8.4 H Lymph # (Auto) 0.3 L [place] # (Auto) 1.0 H Baso # (Auto) Seg Neutrophils % 89.0 H Lymphocytes % (Manual) Seg Neutrophils # 10.5 H Seg Neutrophils # Man Lymphocytes # (Manual) APTT D-Dimer > 48939 H ABG pH POC ABG pO2 ABG pO2 ABG HCO3 ABG O2 Saturation ABG Hemoglobin ABG Oxyhemoglobin ABG Glucose Oxyhemoglobin Chloride Carbon Dioxide BUN Creatinine Glucose 131 H POC Glucose Calcium Magnesium Ferritin AST 49 H Lactate Dehydrogenase C-Reactive Protein Albumin 2.7 L Arterial Blood Glucose Arterial Blood Ionized Calcium Ur Specific [place] Coronavirus (PCR) 03/31/21 03/31/21 04/01/21 07:38 07:38 06:37 WBC RDW Plt Count Lymph % (Auto) [place] % (Auto) Lymph # (Auto) [place] # (Auto) Baso # (Auto) Seg Neutrophils % Lymphocytes % (Manual) Seg Neutrophils # Seg Neutrophils # Man Lymphocytes # (Manual) APTT D-Dimer ABG pH POC ABG pO2 ABG pO2 ABG HCO3 ABG O2 Saturation ABG Hemoglobin ABG Oxyhemoglobin ABG Glucose Oxyhemoglobin Chloride Carbon Dioxide BUN Creatinine 0.7 L 0.7 L Glucose 122 H 117 H POC Glucose Calcium Magnesium Ferritin 1419.0 H AST 42 H 53 H Lactate Dehydrogenase 752 H C-Reactive Protein 4.40 H Albumin 2.9 L 3.2 L Arterial Blood Glucose Arterial Blood Ionized Calcium Ur Specific [place] Coronavirus (PCR) 04/02/21 04/02/21 04/02/21 05:57 05:57 05:57 WBC 13.6 H RDW 15.7 H Plt Count Lymph % (Auto) 2.3 L [place] % (Auto) 10.5 H Lymph # (Auto) 0.3 L [place] # (Auto) 1.4 H Baso # (Auto) 0.2 H Seg Neutrophils % 86.0 H Lymphocytes % (Manual) Seg Neutrophils # 11.7 H Seg Neutrophils # Man Lymphocytes # (Manual) APTT D-Dimer > 78828 H ABG pH POC ABG pO2 ABG pO2 ABG HCO3 ABG O2 Saturation ABG Hemoglobin ABG Oxyhemoglobin ABG Glucose Oxyhemoglobin Chloride Carbon Dioxide BUN 22 H Creatinine 0.7 L Glucose 149 H POC Glucose Calcium Magnesium Ferritin AST 42 H Lactate Dehydrogenase 811 H C-Reactive Protein 2.00 H Albumin 3.0 L Arterial Blood Glucose Arterial Blood Ionized Calcium Ur Specific [place] Coronavirus (PCR) 04/02/21 04/02/21 04/03/21 05:57 21:00 05:56 WBC RDW Plt Count Lymph % (Auto) [place] % (Auto) Lymph # (Auto) [place] # (Auto) Baso # (Auto) Seg Neutrophils % Lymphocytes % (Manual) Seg Neutrophils # Seg Neutrophils # Man Lymphocytes # (Manual) APTT D-Dimer > 43317 H ABG pH POC ABG pO2 ABG pO2 ABG HCO3 ABG O2 Saturation ABG Hemoglobin ABG Oxyhemoglobin ABG Glucose Oxyhemoglobin Chloride Carbon Dioxide BUN Creatinine Glucose POC Glucose 160 H Calcium Magnesium Ferritin 1180.0 H AST Lactate Dehydrogenase C-Reactive Protein Albumin Arterial Blood Glucose Arterial Blood Ionized Calcium Ur Specific [place] Coronavirus (PCR) 04/03/21 04/06/21 04/06/21 05:56 05:03 05:03 WBC 11.7 H RDW 15.6 H Plt Count Lymph % (Auto) [place] % (Auto) Lymph # (Auto) [place] # (Auto) Baso # (Auto) Seg Neutrophils % Lymphocytes % (Manual) 1.0 L Seg Neutrophils # Seg Neutrophils # Man 11.2 H Lymphocytes # (Manual) 0.1 L APTT D-Dimer 8753.33 H ABG pH POC ABG pO2 ABG pO2 ABG HCO3 ABG O2 Saturation ABG Hemoglobin ABG Oxyhemoglobin ABG Glucose Oxyhemoglobin Chloride Carbon Dioxide BUN Creatinine Glucose POC Glucose Calcium Magnesium Ferritin 1117.0 H AST Lactate Dehydrogenase C-Reactive Protein Albumin Arterial Blood Glucose Arterial Blood Ionized Calcium Ur Specific [place] Coronavirus (PCR) 04/06/21 04/06/21 04/10/21 05:03 11:40 02:30 WBC RDW Plt Count Lymph % (Auto) [place] % (Auto) Lymph # (Auto) [place] # (Auto) Baso # (Auto) Seg Neutrophils % Lymphocytes % (Manual) Seg Neutrophils # Seg Neutrophils # Man Lymphocytes # (Manual) APTT D-Dimer ABG pH 7.455 H POC ABG pO2 ABG pO2 69.0 L ABG HCO3 27.0 H ABG O2 Saturation 93.7 L ABG Hemoglobin 13.8 L ABG Oxyhemoglobin ABG Glucose Oxyhemoglobin 93.3 L Chloride Carbon Dioxide 31 H BUN 22 H Creatinine 0.7 L Glucose 145 H POC Glucose Calcium Magnesium 2.50 H Ferritin AST Lactate Dehydrogenase C-Reactive Protein Albumin Arterial Blood Glucose Arterial Blood Ionized Calcium Ur Specific [place] Coronavirus (PCR) 04/11/21 04/11/21 04/12/21 05:47 05:47 18:07 WBC RDW 16.1 H Plt Count 123 L Lymph % (Auto) [place] % (Auto) Lymph # (Auto) [place] # (Auto) Baso # (Auto) Seg Neutrophils % Lymphocytes % (Manual) Seg Neutrophils # Seg Neutrophils # Man Lymphocytes # (Manual) APTT D-Dimer ABG pH POC ABG pO2 ABG pO2 ABG HCO3 ABG O2 Saturation ABG Hemoglobin ABG Oxyhemoglobin ABG Glucose Oxyhemoglobin Chloride 107.3 H Carbon Dioxide BUN Creatinine Glucose POC Glucose Calcium 8.3 L Magnesium 2.40 H Ferritin AST Lactate Dehydrogenase C-Reactive Protein Albumin Arterial Blood Glucose Arterial Blood Ionized Calcium Ur Specific [place] Coronavirus (PCR) 04/13/21 06:54 WBC RDW 16.4 H Plt Count 123 L Lymph % (Auto) 4.6 L [place] % (Auto) 9.6 H Lymph # (Auto) 0.3 L [place] # (Auto) Baso # (Auto) Seg Neutrophils % 83.5 H Lymphocytes % (Manual) Seg Neutrophils # Seg Neutrophils # Man Lymphocytes # (Manual) APTT D-Dimer ABG pH POC ABG pO2 ABG pO2 ABG HCO3 ABG O2 Saturation ABG Hemoglobin ABG Oxyhemoglobin ABG Glucose Oxyhemoglobin Chloride Carbon Dioxide BUN Creatinine Glucose POC Glucose Calcium Magnesium Ferritin AST Lactate Dehydrogenase C-Reactive Protein Albumin Arterial Blood Glucose Arterial Blood Ionized Calcium Ur Specific [place] Coronavirus (PCR) Allied health notes reviewed: nursing
[2021-04-14] MEDS: GABAPENTIN 300 MG CAP PO SCH (17:50)
[2021-04-14] MEDS: PRAVASTATIN 40 MG TAB PO SCH (21:52)
[2021-04-15] MEDS ORDERED: ALPRAZolam 0.5 MG TAB PO ONE (03:25)
--- NOTE | 2021-04-15 05:25 | XRay Report ---
CHEST 1 VIEW 04/15/2021 4:12 AM INDICATION / CLINICAL INFORMATION: follow up on infiltrates.. COMPARISON: 04/08/2021 FINDINGS: SUPPORT DEVICES: None. HEART / MEDIASTINUM: Remains mildly enlarged LUNGS / PLEURA: Extensive bilateral airspace disease has worsened. No pneumothorax. ADDITIONAL FINDINGS: No significant additional findings. IMPRESSION: 1. Worsening bilateral pneumonia Signer Name: Navarro Grace MD Signed: 04/15/2021 5:21 AM Workstation Name: [id number]
[2021-04-15] MEDS: BENZONATATE 100 MG CAP PO SCH ×2 (05:36→15:16)
[2021-04-15] MEDS: ARFORMOTEROL 15 MCG/2 ML NEBU IH SCH ×2 (08:58→19:55)
[2021-04-15] MEDS: BUDESONIDE 0.5 MG/2 ML NEBU IH SCH ×2 (09:02→19:55)
[2021-04-15] MEDS: ASPIRIN 81 MG TAB CHEW PO SCH (10:41)
[2021-04-15] MEDS: SACUBITRIL/VALSARTAN 49-51 MG TAB PO SCH ×2 (10:41→23:21)
[2021-04-15] MEDS: carvediloL 12.5 MG TAB PO SCH ×2 (10:41→22:24)
[2021-04-15] MEDS: ENOXAPARIN 40 MG/0.4 ML INJ SUB-Q SCH (10:42)
[2021-04-15 12:02] LABS: ABG Base Excess -0.4 mmol/L (-2.0-3.0); ABG HCO3 23.1 mmol/L (20.0-26.0); ABG Methemoglobin 0.2 % (0.0-1.5); ABG Oxygen Saturation 88.1 % (95.0-99.0); ABG PCO2 34.3 mm Hg; ABG PH 7.446 pH Units (7.350-7.450); ABG PO2 53.9 mm Hg (80.0-90.0)
--- NOTE | 2021-04-15 13:12 | Event Note ---
Date: 04/15/21 Patient getting worse, now on BIPAP, hypoxic. Dr. Wolf recommends to call Anesthesiologist to intubate. I spoke to Dr. Melendez.
--- NOTE | 2021-04-15 13:13 | Progress Note ---
Assessment and Plan Assessment and plan: 58-year-old male with past medical history of hypertension, congestive heart failure, [place] 18 years ago presenting for complaint of shortness of breath of onset last Friday. Patient states that over the course the last 2 days his symptoms progressively worsened. He had associated symptoms of fever, dry cough, poor p.o. intake, diarrhea and generalized weakness. Ongoing evaluation and treatment for covid pneumonia Acute hypoxic respiratory failure COVID-19 pneumonia Sepsis. Present on admission. Patient met criteria given the fever, tachycardia and diagnosis of pneumonia. Transaminitis. Etiology secondary to sepsis. Chronic CHF EF of 30 to 35%. Hypertension. Hyperlipidemia. History of rheumatoid arthritis. Peripheral neuropathy. Nonsustained V. tach History of coronary artery disease status post PCI. Hypermagnesemia. Hospital Course: 03/29/2021: Cardiology evaluated patient due to 5 beats NSVT. Increased coreg, continue entresto. Patient follows with Dr Martinez. ID evaluated patient, Remdesivir started. Will continue supportive care. 03/30/2021: Respiratory distress overnight. LIkely an allergic reaction to remdesivir. Remdesivir has since been discontinued. Was on BIPAP on encounter and has since been dropped to 15 l/min salter nc. Continue supportive management. Will order inflammatory markers. 03/31/2021: Remains on salter nc 15l /min. sats 88-90% but in no distress. Continue supporitve management. Increased steroids to 60 q6hr. Obtained Pulmonology consult. CXR ordered, will follow. 04/01/2021: Remains on salter nc 12l /min. sats 88-90% but in no distress. Titrate down O2 requirements, ok with sats > 88%. Continue supporitve m anagement. Lasix 20 mg IV x 1 ordered. 04/02/2021: Remains on salter nc 12l /min. Able to ambulate without any distress but does desaturate to 78%. Sats 88-90% when resting. Titrate down O2 requirem ents, ok with sats > 88%. Lasix 40 mg IV twice daily x 2 doses ordered. Continue supportive management 04/03/2021. Remains on salter nc but decreased from 12l /min to 8 L/min. Titrate down O2 requirements, ok with sats > 88%. Continue Lasix as needed 04/04/2021. Patient's oxygen was decreased to 10 L/min but was noted to have desaturation into the 70s. Therefore, patient was placed on 15 L with nonrebreather. Continue prone positioning as able. Patient has significantly elevated D-dimer. However, Doppler studies and CTA of chest were negative. Continue to trend D-dimer along with other inflammatory markers. Prognosis is guarded 04/05/2021. Patient sitting up in a chair and states that he feels comfortable. Patient previously on nonrebreather plus Salter nasal cannula 15 L FiO2 100% wh ich has now been weaned to 8 L. Continue prone positioning as possible. Repeat D-dimer on 04/03 was still greater than 10,000 but CTA of chest and Doppler studies of lower extremities were negative. Recheck D-dimer in a.m. 04/06/2021. D-dimer is slightly decreased to ~8700. Patient remains on salter nasal cannula 8 L/min. Continue prone positioning as possible. Continue to trend inflammatory markers. 04/07/2021. Patient remains on salter nasal cannula 8 L/min. Continue prone positioning as possible. Continue to trend inflammatory markers. PT/OT. Exercise pulse oximetry testing at discharge. 04/08/2021. Patient remains on salter nasal cannula increased to 10 L/min. Continue prone positioning as possible. Continue to trend inflammatory markers. Continue IV Solu-Medrol per pulmonary recommendations. BG is stable. 04/09/2021. Patient remains on salter nasal cannula increased to 10 L/min. Continue prone positioning as possible. Continue to trend inflammatory markers. Continue IV Solu-Medrol per pulmonary recommendations. BG is stable. 04/10/2021 Patient with Covid-19 with acute resp failure . Still on Oxygen at 10 l/min. Continue current. Repeat labs in am. 04/11/2021 Patient with Covid-19 pneumonia with acute resp failure. Now on Oxygen at 6 l/min down from 10 l/min yesterday.. Pulm following. Likely dc home in few days. To obtain ambulatory pulse ox to determine need for Oxygen prior to discharge. 04/12/2021 Acute hypoxic respiratory failure due to Covid-19 pneumonia. On 11 L oxygen by nasal cannula. Has thrombocytopenia, no bleeding noted and will cynthia tor. Nonsustained V. tach, on beta-anuja. Cardiology will be informed. Will check CBC, BMP and magnesium in the morning. 04/13/2021. Acute hypoxic respiratory failure. Was on 7 L oxygen by nasal cannula earlier this morning but has been increased to 11 L oxygen due to worsening hypoxia. Thrombocytopenia is unchanged, no bleeding reported. Hypermagnesemia has resolved. Had a low-grade fever with temperature of 100 and will continue monitoring, will do further work-up if it reoccurs. No indication for antibiotic at this time. 04/14/2021 Patient with Covid-19 pneumonia with acute resp failure. Now on oxygen at 15 l/min, non rebreather. 04/15/21 Patient with Covid-19 pneumonia with acute resp failure. This morning became worse with respiratory distress, so put on BIPAP. he was hypoxic, ABG shows hypoxemia. I discussed with Alexis Aj and he recommended transfer to ICU and Intubation by Anesthesiology. I discussed this with patient and at bedside. CXR shows worse pneumonia. History Interval history: Still gets Shortness of breath on exertion Resp distress this morning, put on BIPAP Hospitalist Physical - Physical exam Narrative exam: Gen: Resp distress, now on BIPAP, HEENT: Normocephalic, atraumatic Lungs: Bilateral rales, no wheeze Heart: S1 and S2 reg, no murmurs, rubs or gallop Abd:soft, non-tender, non distended, normal bowel sounds Ext: No edema, clubbing or cyanosis Neuro: Awake, alert, oriented X 3, moves all extremities - Constitutional Vitals: Temp Pulse Resp BP Pulse Ox 97.5 F L 122 H 32 H 183/114 85 04/15/21 12:06 04/15/21 12:06 04/15/21 12:06 04/15/21 12:06 04/15/21 12:06 General appearance: Present: no acute distress HEART Score - HEART Score Troponin: Troponin T 0.013 ng/mL (0.00-0.029) 04/15/21 07:13 Results - Labs CBC & Chem 7: 04/13/21 06:54 04/15/21 13:07 Labs: Laboratory Last Values WBC 6.4 K/mm3 (4.5-11.0) 04/13/21 06:54 RBC 4.18 M/mm3 (3.65-5.03) 04/13/21 06:54 Hgb 12.8 gm/dl (11.8-15.2) 04/13/21 06:54 Hct 38.0 % (35.5-45.6) 04/13/21 06:54 MCV 91 fl (84-94) 04/13/21 06:54 MCH 31 pg (28-32) 04/13/21 06:54 MCHC 34 % (32-34) 04/13/21 06:54 RDW 16.4 % (13.2-15.2) H 04/13/21 06:54 Plt Count 123 K/mm3 (140-440) L 04/13/21 06:54 Lymph % (Auto) 4.6 % (13.4-35.0) L 04/13/21 06:54 [place] % (Auto) 9.6 % (0.0-7.3) H 04/13/21 06:54 Eos % (Auto) 1.7 % (0.0-4.3) 04/13/21 06:54 Baso % (Auto) 0.6 % (0.0-1.8) 04/13/21 06:54 Lymph # (Auto) 0.3 K/mm3 (1.2-5.4) L 04/13/21 06:54 [place] # (Auto) 0.6 K/mm3 (0.0-0.8) 04/13/21 06:54 Eos # (Auto) 0.1 K/mm3 (0.0-0.4) 04/13/21 06:54 Baso # (Auto) 0.0 K/mm3 (0.0-0.1) 04/13/21 06:54 Add Manual Diff Complete 04/06/21 05:03 Total Counted 100 04/06/21 05:03 Seg Neutrophils % 83.5 % (40.0-70.0) H 04/13/21 06:54 Band Neutrophils % 1.0 % 04/06/21 05:03 Lymphocytes % (Manual) 1.0 % (13.4-35.0) L 04/06/21 05:03 Monocytes % (Manual) 2.0 % (0.0-7.3) 04/06/21 05:03 Nucleated RBC % Not Reportable 04/06/21 05:03 Seg Neutrophils # 5.4 K/mm3 (1.8-7.7) 04/13/21 06:54 Seg Neutrophils # Man 11.2 K/mm3 (1.8-7.7) H 04/06/21 05:03 Band Neutrophils # 0.1 K/mm3 04/06/21 05:03 Lymphocytes # (Manual) 0.1 K/mm3 (1.2-5.4) L 04/06/21 05:03 Abs React Lymphs (Man) 0.0 K/mm3 04/06/21 05:03 Monocytes # (Manual) 0.2 K/mm3 (0.0-0.8) 04/06/21 05:03 Eosinophils # (Manual) 0.0 K/mm3 (0.0-0.4) 04/06/21 05:03 Basophils # (Manual) 0.0 K/mm3 (0.0-0.1) 04/06/21 05:03 Metamyelocytes # 0.0 K/mm3 04/06/21 05:03 Myelocytes # 0.0 K/mm3 04/06/21 05:03 Promyelocytes # 0.0 K/mm3 04/06/21 05:03 Blast Cells # 0.0 K/mm3 04/06/21 05:03 WBC Morphology Not Reportable 04/06/21 05:03 Hypersegmented Neuts Not Reportable 04/06/21 05:03 Hyposegmented Neuts Not Reportable 04/06/21 05:03 Hypogranular Neuts Not Reportable 04/06/21 05:03 Smudge Cells Not Reportable 04/06/21 05:03 Toxic Granulation Not Reportable 04/06/21 05:03 Toxic Vacuolation Not Reportable 04/06/21 05:03 Dohle Bodies Not Reportable 04/06/21 05:03 Pelger-Huet Anomaly Not Reportable 04/06/21 05:03 Adan Rods Not Reportable 04/06/21 05:03 Platelet Estimate Consistent w auto 04/06/21 05:03 Clumped Platelets Not Reportable 04/06/21 05:03 Plt Clumps, EDTA Not Reportable 04/06/21 05:03 Large Platelets Not Reportable 04/06/21 05:03 Giant Platelets Not Reportable 04/06/21 05:03 Platelet Satelliting Not Reportable 04/06/21 05:03 Plt Morphology Comment Not Reportable 04/06/21 05:03 RBC Morphology Not Reportable 04/06/21 05:03 Dimorphic RBCs Not Reportable 04/06/21 05:03 Polychromasia Not Reportable 04/06/21 05:03 Hypochromasia Not Reportable 04/06/21 05:03 Poikilocytosis 1+ 04/06/21 05:03 Anisocytosis Not Reportable 04/06/21 05:03 Microcytosis Not Reportable 04/06/21 05:03 Macrocytosis Not Reportable 04/06/21 05:03 Spherocytes Not Reportable 04/06/21 05:03 Pappenheimer Bodies Not Reportable 04/06/21 05:03 Sickle Cells Not Reportable 04/06/21 05:03 Target Cells Not Reportable 04/06/21 05:03 Tear Drop Cells Not Reportable 04/06/21 05:03 Ovalocytes Not Reportable 04/06/21 05:03 Helmet Cells Not Reportable 04/06/21 05:03 [place] Bodies Not Reportable 04/06/21 05:03 [place] Rings Not Reportable 04/06/21 05:03 [place] Cells Not Reportable 04/06/21 05:03 Bite Cells Not Reportable 04/06/21 05:03 Crenated Cell Not Reportable 04/06/21 05:03 Elliptocytes Not Reportable 04/06/21 05:03 Acanthocytes (Spur) Not Reportable 04/06/21 05:03 Rouleaux Not Reportable 04/06/21 05:03 Hemoglobin C Crystals Not Reportable 04/06/21 05:03 Schistocytes Not Reportable 04/06/21 05:03 Malaria parasites Not Reportable 04/06/21 05:03 Luke Bodies Not Reportable 04/06/21 05:03 Hem Pathologist Commnt No 04/06/21 05:03 PT 13.2 Sec. (12.2-14.9) 03/28/21 Unknown INR 0.95 (0.87-1.13) 03/28/21 Unknown APTT 38.7 Sec. (24.2-36.6) H 03/28/21 Unknown D-Dimer > 07978 ng/mlDDU (0-234) H 04/15/21 07:13 ABG pH 7.446 pH Units (7.350-7.450) 04/15/21 11:35 POC ABG pCO2 42.0 mmHg (32.0-48.0) 03/29/21 20:03 ABG pCO2 34.3 mm Hg 04/15/21 11:35 POC ABG pO2 51.4 mmHg (83-108) L 03/29/21 20:03 ABG pO2 53.9 mm Hg (80.0-90.0) L 04/15/21 11:35 POC ABG HCO3 18.6 03/29/21 20:03 ABG HCO3 23.1 mmol/L (20.0-26.0) 04/15/21 11:35 ABG O2 Saturation 88.1 % (95.0-99.0) L 04/15/21 11:35 ABG O2 Content 15.4 (0.0-44) 04/15/21 11:35 POC ABG Base Excess -8.0 03/29/21 20:03 ABG Base Excess -0.4 mmol/L (-2.0-3.0) 04/15/21 11:35 ABG Hemoglobin 12.6 gm/dl (14.0-18.0) L 04/15/21 11:35 ABG Oxyhemoglobin 77.6 (94-98) L 03/29/21 20:03 ABG Carboxyhemoglobin 1.2 % (0.0-5.0) 04/15/21 11:35 ABG Methemoglobin 0.2 % (0.0-1.5) 04/15/21 11:35 ABG Sodium 136.8 mmol/L (136.0-145.0) 03/29/21 20:03 ABG Potassium 4.0 mmol/L (3.40-4.50) 03/29/21 20:03 ABG Chloride 104.0 mmol/L (98-107) 03/29/21 20:03 ABG Glucose 275 mg/dL (65-95) H 03/29/21 20:03 Oxyhemoglobin 86.9 % (95.0-99.0) L 04/15/21 11:35 Carboxyhemoglobin 1.5 (0.5-1.5) 03/29/21 20:03 FiO2 21 % 04/15/21 11:35 FiO2 % 100.0 03/29/21 20:03 Sodium 137 mmol/L (137-145) 04/13/21 06:54 Potassium 4.5 mmol/L (3.6-5.0) 04/14/21 23:41 Chloride 102.8 mmol/L (98-107) 04/13/21 06:54 Carbon Dioxide 25 mmol/L (22-30) 04/13/21 06:54 Anion Gap 14 mmol/L 04/13/21 06:54 BUN 13 mg/dL (9-20) 04/13/21 06:54 Creatinine 1.0 mg/dL (0.8-1.3) 04/13/21 06:54 Estimated GFR > 60 ml/min 04/13/21 06:54 BUN/Creatinine Ratio 13 % 04/13/21 06:54 Glucose 96 mg/dL (75-100) 04/13/21 06:54 POC Glucose 160 mg/dL (70-105) H 04/02/21 21:00 Lactic Acid 1.60 mmol/L (0.7-2.0) 03/28/21 Unknown Calcium 8.6 mg/dL (8.4-10.2) 04/13/21 06:54 Phosphorus 2.90 mg/dL (2.5-4.5) 04/14/21 23:41 Magnesium 2.20 mg/dL (1.7-2.3) 04/14/21 23:41 Ferritin 1391.0 ng/mL (30.0-300.0) H 04/15/21 07:13 Total Bilirubin 0.90 mg/dL (0.1-1.2) 04/02/21 05:57 AST 42 units/L (5-40) H 04/02/21 05:57 ALT 32 units/L (7-56) 04/02/21 05:57 Alkaline Phosphatase 85 units/L (35-129) 04/02/21 05:57 Lactate Dehydrogenase 728 units/L (91-180) H 04/15/21 07:13 Troponin T 0.013 ng/mL (0.00-0.029) 04/15/21 07:13 C-Reactive Protein 15.20 mg/dL (0.00-1.30) H 04/15/21 07:13 Total Protein 6.6 g/dL (6.3-8.2) 04/02/21 05:57 Albumin 3.0 g/dL (3.9-5) L 04/02/21 05:57 Albumin/Globulin Ratio 0.8 % 04/02/21 05:57 Procalcitonin 0.37 ng/mL (<0.15) 03/28/21 09:25 Arterial Blood Glucose 275 mg/dL (65-95) H 03/29/21 20:03 Arterial Blood Ionized Calcium 4.5 mg/dL (4.6-5.3) L 03/29/21 20:03 Urine Color [place]ha (Yellow) 03/28/21 Unknown Urine Turbidity Clear (Clear) 03/28/21 Unknown Urine pH 5.0 (5.0-7.0) 03/28/21 Unknown Ur Specific [place] 1.038 (1.003-1.030) H 03/28/21 Unknown Urine Protein >500 mg/dL (Negative) 03/28/21 Unknown Urine Glucose (UA) 50 mg/dL (Negative) 03/28/21 Unknown Urine Ketones Tr mg/dL (Negative) 03/28/21 Unknown Urine Blood Mod (Negative) 03/28/21 Unknown Urine Nitrite Neg (Negative) 03/28/21 Unknown Urine Bilirubin Neg (Negative) 03/28/21 Unknown Urine Urobilinogen 2.0 mg/dL (<2.0) 03/28/21 Unknown Ur Leukocyte Esterase Neg (Negative) 03/28/21 Unknown Urine WBC (Auto) 6.0 /HPF (0.0-6.0) 03/28/21 Unknown Urine RBC (Auto) 2.0 /HPF (0.0-6.0) 03/28/21 Unknown U Epithel Cells (Auto) < 1.0 /HPF (0-13.0) 03/28/21 Unknown Urine Mucus Few /HPF 03/28/21 Unknown Coronavirus (PCR) Positive (Negative) A 03/28/21 Unknown Cooney/IV: Voiding Method Urinal Active Medications - Current Medications Current Medications: Generic Name Dose Route Start Last Admin Trade Name Freq PRN Reason Stop Dose Admin Acetaminophen 650 mg 03/28/21 12:45 Acetaminophen 325 Mg Tab PO Q4H PRN Pain MILD(1-3)/Fever >100.5/MIRANDA Albuterol 2.5 mg 04/08/21 11:23 Albuterol 2.5 Mg/3 Ml Nebu IH Q4H PRN Shortness of breath. Arformoterol Tartrate 15 mcg 04/08/21 20:00 04/15/21 08:58 Arformoterol 15 Mcg/2 Ml Nebu IH Not Given Q12HRT LISSETTE Aspirin 81 mg 03/29/21 10:00 04/15/21 10:41 Aspirin 81 Mg Tab Chew PO 81 mg QDAY LISSETTE Administration Benzonatate 100 mg 03/29/21 07:00 04/15/21 05:36 Benzonatate 100 Mg Cap PO 100 mg Q8HR LISSETTE Administration Budesonide 0.5 mg 04/08/21 20:00 04/15/21 09:02 Budesonide 0.5 Mg/2 Ml Nebu IH Not Given Q12HRT [facility] Carvedilol 12.5 mg 04/11/21 11:00 04/15/21 10:41 Carvedilol 12.5 Mg Tab PO 12.5 mg BID LISSETTE Administration Enoxaparin Sodium 40 mg 03/28/21 14:00 04/15/21 10:42 Enoxaparin 40 Mg/0.4 Ml Inj SUB-Q 40 mg DAILY LISSETTE Administration Protocol Gabapentin 300 mg 03/29/21 18:00 04/14/21 17:50 Gabapentin 300 Mg Cap PO 300 mg QPM LISSETTE Administration Labetalol HCl 10 mg 03/28/21 15:34 04/15/21 05:42 Labetalol 20 Mg/4 Ml Inj IV 10 mg Q6HR PRN Administration sbp > 160, hold for hr < 70 Ondansetron HCl 4 mg 03/28/21 12:45 Ondansetron 4 Mg/2 Ml Inj IV Q8H PRN Nausea And Vomiting Oxycodone/Acetaminophen 1 tab 03/28/21 12:45 04/01/21 10:36 Oxycodone /Acetaminophen 5-325mg Tab PO 1 tab Q6H PRN Administration Pain, Moderate (4-6) Pravastatin Sodium 40 mg 03/29/21 22:00 04/14/21 21:52 Pravastatin 40 Mg Tab PO 40 mg QHS LISSETTE Administration Sodium Chloride 10 ml 03/28/21 22:00 04/15/21 10:42 Sodium Chloride 0.9% 10 Ml Flush Syringe IV 10 ml BID LISSETTE Administration Sodium Chloride 10 ml 03/28/21 12:45 Sodium Chloride 0.9% 10 Ml Flush Syringe IV PRN PRN LINE FLUSH Nutrition/Malnutrition Assess - Dietary Evaluation Nutrition/Malnutrition Findings: Nutrition Notes Start: 03/29/21 14:40 Freq: Status: Active Protocol: Document 04/10/21 12:13 JADEN (Rec: 04/10/21 12:41 JADEN [id number]) Nutrition Notes Need for Assessment generated from: insurance follow up representative Initial or Follow up Reassessment Current Diagnosis Heart Failure Other Pertinent Diagnosis Pneumonia, possible assoc w/ COVID-19 Current Diet Cardiac Diet, since 03/28. Labs/Tests 04/06: CO2 31, BUN 22, Cr 0.7, Glu 145. Pertinent Medications 04/10: Reviewed. Height 5 ft 5 in Weight 86.5 kg [place] Body Weight (kg) 61.81 BMI 31.7 Intake Prior to Admission Excellent Weight Status Obese Subjective/Other Information Pt reported lack of appetite and diarrhea upon admission, but since, has improved. Currently Pt with regular BM. Percent of energy/protein needs met: Prescribed Cardiac Diet provides with energy/protein needs during LOS (2230 Kcal/ 85 g). Burn Absent Trauma Absent GI Symptoms None Food Allergy No Skin Integrity/Comment Integumentary; clear,warm,dry. Current % PO Good (75-100%) Minimum of two criteria No physical signs of malnutrition #1 Nutrition Diagnosis No nutrition diagnosis at this time Comments: Pt reported increased appetite and tolerance of food; currently, 100% of meals intake. Diagnosis Progress(for reassessment Improved documentation) Is patient on ventilator? No Is Patient Ambulatory and/or Out of Bed Yes REE-([facility]-ambulatory/OOB) [ 2030.444 [id number]] Kcal/Kg value to use for calculation 26 Approximate Energy Requirements Using 2249 kcal/Kg Calculation Used for Recommendations Kcal/kg Additional Notes Protein: 1.0-1.2 g/Kg/day; 62- 75 g/day; 248-300 Kcal/day ( from IBW). Fluids: 1.0 ml/kcal/day, or as per MD. Nutrition Intervention Change Diet Order: continue Cardiac Diet during LOS. Goal #1 Maintain body weight within +/ -3% of current BWt during LOS. Goal #2 Reach and maintain acceptable chemistry lab values during LOS. Follow-Up By: 04/17/21 Additional Comments Continue monitoring % of meals PO intake, acceptance of food , and BM.
[2021-04-15] MEDS ORDERED: ROCURONIUM 50 MG/5 ML INJ IV ONE ×5 (13:49→16:34)
[2021-04-15] MEDS ORDERED: propofoL 200 MG/20 ML VIAL IV ONE ×3 (13:49→13:54)
[2021-04-15 13:55] LABS: Blood Urea Nitrogen 19 mg/dL (9-20); Calcium 8.6 mg/dL (8.4-10.2); Hemolysis Index 44
[2021-04-15 13:57] LABS: BUN/Creatinine Ratio 27
[2021-04-15] MEDS ORDERED: SODIUM CHLORIDE 0.9% 1000 ML 1,000 ML ONE (14:02)
--- NOTE | 2021-04-15 14:29 | Event Note ---
Date: 04/15/21 (Intubation) Diagnoses SEPSIS, UNSPECIFIED ORGANISM (03/28/21) VENTRICULAR TACHYCARDIA (03/28/21) CHRONIC SYSTOLIC (CONGESTIVE) HEART FAILURE (03/28/21) PNEUMONIA, UNSPECIFIED ORGANISM (03/28/21) ACUTE RESPIRATORY FAILURE WITH HYPOXIA (03/28/21) COVID-19 (03/28/21) Anesthesia called for intubation, Pt was at 369, transferred to icu. VSS, Spo2 80-90%, Discussed with pt the need for additional resp. support and intubation. Pt acknowledged and gave verbal consent for intubation, Iv induction and oral intubation with glidescope, 7.5 ett, easy intubation, atraumatic, teeth intact, vss +[id number], pt placed on vent per RT Lonnie Martin CRNA anesthesia time [id number]
[2021-04-15] MEDS ORDERED: SODIUM CHLORIDE 0.9% 1000 ML 1,000 ML IV ONE ×2 (14:34→16:33)
[2021-04-15] MEDS: fentaNYL DRIP Premix 2,000 MCG/100 ML BAG IV SCH ×2 (14:45→23:23)
[2021-04-15] MEDS ORDERED: fentaNYL DRIP Premix 2,000 MCG/100 ML BAG IV ONE (14:49)
[2021-04-15] MEDS ORDERED: fentaNYL 100 MCG/2 ML INJ IV PRN (14:51)
--- NOTE | 2021-04-15 15:07 | Progress Note ---
Assessment and Plan Acute hypoxemic respiratory failure COVID-19 virus infection Pneumonia due to COVID-19 virus CAD (coronary artery disease) HFrEF (heart failure with reduced ejection fraction) HTN - intubated; PRVC/AC, 450, 25 & peep of 10 - peep dropped to 8 re: high PIP's (60's) - sedation for RASS -2 to -3 acutely - follow tracheal aspirate C&S - conservative volume strategies (stopped post intubation NS bolus) - get 2D ECHO re: h/o CHF - empiric diuresis re: pulmonary edema component - get bilateral lower extremity dopplers to evaluate for acute DVT - too unstable for CTA chest acutely - continue care as below otherwise; - Daily SAT and SBT assessment as tolerated - continue to wean supplemental oxygen for target O2 sat's > 92% acutely - VAP bundle addressed - continue lung protective strategies - continue bronchodilators with pulmonary hygiene per RT - wean per pulmonary driven protocols otherwise - avoid nephrotoxins, renally dose all medications - continue accuchecks with glycemic control per SSI (While critically ill target blood glucose of 140-180 mg/dL; avoid hypoglycemia) - avoid benzodiazepine's, reduce the possibility of delirium - AB's per ID rec's - prn analgesia per CPOT score - Maintenance of sleep-wake cycle, avoid delirium - continue enteral nutritional support at goal rate as tolerated - G.I. & VTE prophylaxis - PT/OT/ROM exercises - continue mobility protocols for pressure ulcer prophylaxis - Monitor hemodynamics closely COVID SPECIFIC INTERVENTIONS - Remdesivir as per ID/Pulmonary developed protocols (Received) - continue systemic steroids for severe COVID-19 infection empirically (Solumedrol) - follow repeat COVID tests results - zinc and vitamin C supplementation - Monitor inflammatory markers per facility protocol - ferritin, Ddimer, CRP - therapeutic anticoagulation per system Protocol based on d-dimer and clinical considerations (VTE prophylaxis) - Continue contact and airborne isolation .... Re-evaluate in am & prn CONDITION: CRITICAL PROGNOSIS: GUARDED CODE STATUS: FULL CODE The high probability of a clinically significant, sudden or life-threatening deterioration of the [respiratory & cardiovascular] system(s) required my full and direct attention, intervention and personal management. The aggregate critical care time was [33] minutes without overlap. Time includes spent on; [x] Data Review and interpretation [x] Patient assessment and monitoring of vital signs [x] Documentation [x] Medication orders and management Subjective Date of service: 04/15/21 Principal diagnosis: Acute hypoxemic resp failure; COVID-19 infxn; Pneumonia; CAD; HFrEF; HTN Interval history: Patient is seen today for: Acute hypoxemic respiratory failure; COVID-19 virus infection; Pneumonia due to COVID-19 virus; CAD; HFrEF; HTN Seen and examined at bedside; 24hour events reviewed; nursing and respiratory care staff consulted; no adverse overnight events reported to me; resting in bed; decompensated over the past 48 hours and today requiring continuous BIPAP with persistent increased WOB and tachypnea in the 40's to 50's; intubated; no emesis or overt aspiration reported; no high grade fevers Objective Vital Signs - 12hr 04/15/21 04/15/21 04/15/21 05:39 05:42 09:23 Temperature 98.3 F Pulse Rate 115 H 115 H 118 H Respiratory 18 38 H Rate Blood Pressure 167/99 167/99 O2 Sat by Pulse 88 88 Oximetry 04/15/21 04/15/21 04/15/21 09:28 10:00 10:41 Temperature Pulse Rate 116 H Respiratory 22 Rate Blood Pressure 139/85 O2 Sat by Pulse 88 91 Oximetry 04/15/21 12:06 Temperature 97.5 F L Pulse Rate 122 H Respiratory 32 H Rate Blood Pressure 183/114 O2 Sat by Pulse 85 Oximetry Constitutional: appears uncomfortable, other (elderly male with mildly increased respiratory effort at rest on MVS) Eyes: non-icteric ENT: oropharynx moist, other (ETT 24 cm BOLA) Neck: supple, no lymphadenopathy, no JVD Effort: mildly labored Ascultation: Bilateral: rales Percussion: Bilateral: not dull Cardiovascular: regular rate and rhythm Gastrointestinal: normoactive bowel sounds, soft, non-tender, non-distended (protuberant) Integumentary: normal Extremities: no cyanosis, no edema, pulses normal, no ischemia or petechiae Neurologic: non-focal exam (grossly), pupils equal and round, CN II-XII normal, other (sedated) Psychiatric: other (unable to assess re: AMS) CBC and BMP: 04/16/21 07:19 04/16/21 Unknown ABG, PT/INR, D-dimer: ABG ABG pH 7.446 pH Units (7.350-7.450) 04/15/21 11:35 POC ABG pCO2 42.0 mmHg (32.0-48.0) 03/29/21 20:03 ABG pCO2 34.3 mm Hg 04/15/21 11:35 POC ABG pO2 51.4 mmHg (83-108) L 03/29/21 20:03 ABG pO2 53.9 mm Hg (80.0-90.0) L 04/15/21 11:35 POC ABG HCO3 18.6 03/29/21 20:03 ABG O2 Saturation 88.1 % (95.0-99.0) L 04/15/21 11:35 PT/INR, D-dimer PT 13.2 Sec. (12.2-14.9) 03/28/21 Unknown INR 0.95 (0.87-1.13) 03/28/21 Unknown D-Dimer > 86413 ng/mlDDU (0-234) H 04/15/21 07:13 Abnormal lab findings: Abnormal Labs 03/28/21 03/28/21 03/28/21 08:26 09:25 09:25 WBC RDW Plt Count Lymph % (Auto) [place] % (Auto) Lymph # (Auto) [place] # (Auto) Baso # (Auto) Seg Neutrophils % Lymphocytes % (Manual) Seg Neutrophils # Seg Neutrophils # Man Lymphocytes # (Manual) APTT D-Dimer 1100.30 H ABG pH POC ABG pO2 ABG pO2 ABG HCO3 ABG O2 Saturation ABG Hemoglobin ABG Oxyhemoglobin ABG Glucose Oxyhemoglobin Sodium Chloride Carbon Dioxide BUN Creatinine Glucose 109 H POC Glucose Calcium Magnesium 2.40 H Ferritin AST Lactate Dehydrogenase 677 H C-Reactive Protein 13.70 H Albumin Arterial Blood Glucose Arterial Blood Ionized Calcium Ur Specific [place] Coronavirus (PCR) 03/28/21 03/28/21 03/28/21 09:25 Unknown Unknown WBC RDW Plt Count 96 L Lymph % (Auto) 7.2 L [place] % (Auto) 10.8 H Lymph # (Auto) 0.5 L [place] # (Auto) Baso # (Auto) Seg Neutrophils % 81.8 H Lymphocytes % (Manual) Seg Neutrophils # Seg Neutrophils # Man Lymphocytes # (Manual) APTT D-Dimer ABG pH POC ABG pO2 ABG pO2 ABG HCO3 ABG O2 Saturation ABG Hemoglobin ABG Oxyhemoglobin ABG Glucose Oxyhemoglobin Sodium Chloride Carbon Dioxide BUN Creatinine Glucose POC Glucose Calcium Magnesium Ferritin 1340.0 H AST Lactate Dehydrogenase C-Reactive Protein Albumin Arterial Blood Glucose Arterial Blood Ionized Calcium Ur Specific [place] 1.038 H Coronavirus (PCR) 03/28/21 03/28/21 03/28/21 Unknown Unknown Unknown WBC RDW Plt Count Lymph % (Auto) [place] % (Auto) Lymph # (Auto) [place] # (Auto) Baso # (Auto) Seg Neutrophils % Lymphocytes % (Manual) Seg Neutrophils # Seg Neutrophils # Man Lymphocytes # (Manual) APTT 38.7 H D-Dimer ABG pH POC ABG pO2 ABG pO2 ABG HCO3 ABG O2 Saturation ABG Hemoglobin ABG Oxyhemoglobin ABG Glucose Oxyhemoglobin Sodium Chloride Carbon Dioxide BUN Creatinine Glucose 120 H POC Glucose Calcium Magnesium Ferritin AST 73 H Lactate Dehydrogenase C-Reactive Protein Albumin 3.4 L Arterial Blood Glucose Arterial Blood Ionized Calcium Ur Specific [place] Coronavirus (PCR) Positive A 03/29/21 03/29/21 03/29/21 02:30 02:30 02:30 WBC RDW 15.4 H Plt Count 107 L Lymph % (Auto) 5.6 L [place] % (Auto) 10.0 H Lymph # (Auto) 0.4 L [place] # (Auto) Baso # (Auto) Seg Neutrophils % 84.2 H Lymphocytes % (Manual) Seg Neutrophils # Seg Neutrophils # Man Lymphocytes # (Manual) APTT D-Dimer ABG pH POC ABG pO2 ABG pO2 ABG HCO3 ABG O2 Saturation ABG Hemoglobin ABG Oxyhemoglobin ABG Glucose Oxyhemoglobin Sodium Chloride Carbon Dioxide BUN Creatinine Glucose 128 H POC Glucose Calcium Magnesium 2.60 H Ferritin AST 64 H Lactate Dehydrogenase C-Reactive Protein Albumin 3.1 L Arterial Blood Glucose Arterial Blood Ionized Calcium Ur Specific [place] Coronavirus (PCR) 03/29/21 03/29/21 03/29/21 15:30 19:48 20:03 WBC RDW Plt Count Lymph % (Auto) [place] % (Auto) Lymph # (Auto) [place] # (Auto) Baso # (Auto) Seg Neutrophils % Lymphocytes % (Manual) Seg Neutrophils # Seg Neutrophils # Man Lymphocytes # (Manual) APTT D-Dimer ABG pH 7.264 L POC ABG pO2 51.4 L ABG pO2 ABG HCO3 ABG O2 Saturation ABG Hemoglobin ABG Oxyhemoglobin 77.6 L ABG Glucose 275 H Oxyhemoglobin Sodium Chloride Carbon Dioxide 21 L BUN Creatinine Glucose 125 H POC Glucose 189 H Calcium Magnesium Ferritin AST 64 H Lactate Dehydrogenase C-Reactive Protein Albumin 2.8 L Arterial Blood Glucose 275 H Arterial Blood Ionized Calcium 4.5 L Ur Specific [place] Coronavirus (PCR) 03/30/21 03/31/21 03/31/21 06:07 07:38 07:38 WBC 11.8 H RDW 15.4 H Plt Count Lymph % (Auto) 2.4 L [place] % (Auto) 8.4 H Lymph # (Auto) 0.3 L [place] # (Auto) 1.0 H Baso # (Auto) Seg Neutrophils % 89.0 H Lymphocytes % (Manual) Seg Neutrophils # 10.5 H Seg Neutrophils # Man Lymphocytes # (Manual) APTT D-Dimer > 54600 H ABG pH POC ABG pO2 ABG pO2 ABG HCO3 ABG O2 Saturation ABG Hemoglobin ABG Oxyhemoglobin ABG Glucose Oxyhemoglobin Sodium Chloride Carbon Dioxide BUN Creatinine Glucose 131 H POC Glucose Calcium Magnesium Ferritin AST 49 H Lactate Dehydrogenase C-Reactive Protein Albumin 2.7 L Arterial Blood Glucose Arterial Blood Ionized Calcium Ur Specific [place] Coronavirus (PCR) 03/31/21 03/31/21 04/01/21 07:38 07:38 06:37 WBC RDW Plt Count Lymph % (Auto) [place] % (Auto) Lymph # (Auto) [place] # (Auto) Baso # (Auto) Seg Neutrophils % Lymphocytes % (Manual) Seg Neutrophils # Seg Neutrophils # Man Lymphocytes # (Manual) APTT D-Dimer ABG pH POC ABG pO2 ABG pO2 ABG HCO3 ABG O2 Saturation ABG Hemoglobin ABG Oxyhemoglobin ABG Glucose Oxyhemoglobin Sodium Chloride Carbon Dioxide BUN Creatinine 0.7 L 0.7 L Glucose 122 H 117 H POC Glucose Calcium Magnesium Ferritin 1419.0 H AST 42 H 53 H Lactate Dehydrogenase 752 H C-Reactive Protein 4.40 H Albumin 2.9 L 3.2 L Arterial Blood Glucose Arterial Blood Ionized Calcium Ur Specific [place] Coronavirus (PCR) 04/02/21 04/02/21 04/02/21 05:57 05:57 05:57 WBC 13.6 H RDW 15.7 H Plt Count Lymph % (Auto) 2.3 L [place] % (Auto) 10.5 H Lymph # (Auto) 0.3 L [place] # (Auto) 1.4 H Baso # (Auto) 0.2 H Seg Neutrophils % 86.0 H Lymphocytes % (Manual) Seg Neutrophils # 11.7 H Seg Neutrophils # Man Lymphocytes # (Manual) APTT D-Dimer > 92485 H ABG pH POC ABG pO2 ABG pO2 ABG HCO3 ABG O2 Saturation ABG Hemoglobin ABG Oxyhemoglobin ABG Glucose Oxyhemoglobin Sodium Chloride Carbon Dioxide BUN 22 H Creatinine 0.7 L Glucose 149 H POC Glucose Calcium Magnesium Ferritin AST 42 H Lactate Dehydrogenase 811 H C-Reactive Protein 2.00 H Albumin 3.0 L Arterial Blood Glucose Arterial Blood Ionized Calcium Ur Specific [place] Coronavirus (PCR) 04/02/21 04/02/21 04/03/21 05:57 21:00 05:56 WBC RDW Plt Count Lymph % (Auto) [place] % (Auto) Lymph # (Auto) [place] # (Auto) Baso # (Auto) Seg Neutrophils % Lymphocytes % (Manual) Seg Neutrophils # Seg Neutrophils # Man Lymphocytes # (Manual) APTT D-Dimer > 36181 H ABG pH POC ABG pO2 ABG pO2 ABG HCO3 ABG O2 Saturation ABG Hemoglobin ABG Oxyhemoglobin ABG Glucose Oxyhemoglobin Sodium Chloride Carbon Dioxide BUN Creatinine Glucose POC Glucose 160 H Calcium Magnesium Ferritin 1180.0 H AST Lactate Dehydrogenase C-Reactive Protein Albumin Arterial Blood Glucose Arterial Blood Ionized Calcium Ur Specific [place] Coronavirus (PCR) 04/03/21 04/06/21 04/06/21 05:56 05:03 05:03 WBC 11.7 H RDW 15.6 H Plt Count Lymph % (Auto) [place] % (Auto) Lymph # (Auto) [place] # (Auto) Baso # (Auto) Seg Neutrophils % Lymphocytes % (Manual) 1.0 L Seg Neutrophils # Seg Neutrophils # Man 11.2 H Lymphocytes # (Manual) 0.1 L APTT D-Dimer 8753.33 H ABG pH POC ABG pO2 ABG pO2 ABG HCO3 ABG O2 Saturation ABG Hemoglobin ABG Oxyhemoglobin ABG Glucose Oxyhemoglobin Sodium Chloride Carbon Dioxide BUN Creatinine Glucose POC Glucose Calcium Magnesium Ferritin 1117.0 H AST Lactate Dehydrogenase C-Reactive Protein Albumin Arterial Blood Glucose Arterial Blood Ionized Calcium Ur Specific [place] Coronavirus (PCR) 04/06/21 04/06/21 04/10/21 05:03 11:40 02:30 WBC RDW Plt Count Lymph % (Auto) [place] % (Auto) Lymph # (Auto) [place] # (Auto) Baso # (Auto) Seg Neutrophils % Lymphocytes % (Manual) Seg Neutrophils # Seg Neutrophils # Man Lymphocytes # (Manual) APTT D-Dimer ABG pH 7.455 H POC ABG pO2 ABG pO2 69.0 L ABG HCO3 27.0 H ABG O2 Saturation 93.7 L ABG Hemoglobin 13.8 L ABG Oxyhemoglobin ABG Glucose Oxyhemoglobin 93.3 L Sodium Chloride Carbon Dioxide 31 H BUN 22 H Creatinine 0.7 L Glucose 145 H POC Glucose Calcium Magnesium 2.50 H Ferritin AST Lactate Dehydrogenase C-Reactive Protein Albumin Arterial Blood Glucose Arterial Blood Ionized Calcium Ur Specific [place] Coronavirus (PCR) 04/11/21 04/11/21 04/12/21 05:47 05:47 18:07 WBC RDW 16.1 H Plt Count 123 L Lymph % (Auto) [place] % (Auto) Lymph # (Auto) [place] # (Auto) Baso # (Auto) Seg Neutrophils % Lymphocytes % (Manual) Seg Neutrophils # Seg Neutrophils # Man Lymphocytes # (Manual) APTT D-Dimer ABG pH POC ABG pO2 ABG pO2 ABG HCO3 ABG O2 Saturation ABG Hemoglobin ABG Oxyhemoglobin ABG Glucose Oxyhemoglobin Sodium Chloride 107.3 H Carbon Dioxide BUN Creatinine Glucose POC Glucose Calcium 8.3 L Magnesium 2.40 H Ferritin AST Lactate Dehydrogenase C-Reactive Protein Albumin Arterial Blood Glucose Arterial Blood Ionized Calcium Ur Specific [place] Coronavirus (PCR) 04/13/21 04/15/21 04/15/21 06:54 07:13 07:13 WBC RDW 16.4 H Plt Count 123 L Lymph % (Auto) 4.6 L [place] % (Auto) 9.6 H Lymph # (Auto) 0.3 L [place] # (Auto) Baso # (Auto) Seg Neutrophils % 83.5 H Lymphocytes % (Manual) Seg Neutrophils # Seg Neutrophils # Man Lymphocytes # (Manual) APTT D-Dimer > 09426 H ABG pH POC ABG pO2 ABG pO2 ABG HCO3 ABG O2 Saturation ABG Hemoglobin ABG Oxyhemoglobin ABG Glucose Oxyhemoglobin Sodium Chloride Carbon Dioxide BUN Creatinine Glucose POC Glucose Calcium Magnesium Ferritin 1391.0 H AST Lactate Dehydrogenase C-Reactive Protein Albumin Arterial Blood Glucose Arterial Blood Ionized Calcium Ur Specific [place] Coronavirus (PCR) 04/15/21 04/15/21 04/15/21 07:13 07:13 11:35 WBC RDW Plt Count Lymph % (Auto) [place] % (Auto) Lymph # (Auto) [place] # (Auto) Baso # (Auto) Seg Neutrophils % Lymphocytes % (Manual) Seg Neutrophils # Seg Neutrophils # Man Lymphocytes # (Manual) APTT D-Dimer ABG pH POC ABG pO2 ABG pO2 53.9 L ABG HCO3 ABG O2 Saturation 88.1 L ABG Hemoglobin 12.6 L ABG Oxyhemoglobin ABG Glucose Oxyhemoglobin 86.9 L Sodium Chloride Carbon Dioxide BUN Creatinine Glucose POC Glucose Calcium Magnesium Ferritin AST Lactate Dehydrogenase 728 H C-Reactive Protein 15.20 H Albumin Arterial Blood Glucose Arterial Blood Ionized Calcium Ur Specific [place] Coronavirus (PCR) 04/15/21 13:07 WBC RDW Plt Count Lymph % (Auto) [place] % (Auto) Lymph # (Auto) [place] # (Auto) Baso # (Auto) Seg Neutrophils % Lymphocytes % (Manual) Seg Neutrophils # Seg Neutrophils # Man Lymphocytes # (Manual) APTT D-Dimer ABG pH POC ABG pO2 ABG pO2 ABG HCO3 ABG O2 Saturation ABG Hemoglobin ABG Oxyhemoglobin ABG Glucose Oxyhemoglobin Sodium 136 L Chloride Carbon Dioxide 19 L BUN Creatinine 0.7 L Glucose 108 H POC Glucose Calcium Magnesium Ferritin AST Lactate Dehydrogenase C-Reactive Protein Albumin Arterial Blood Glucose Arterial Blood Ionized Calcium Ur Specific [place] Coronavirus (PCR) Chest x-ray: image reviewed (ETT in good position; basilar predominant infiltrates) Allied health notes reviewed: nursing
[2021-04-15] MEDS ORDERED: MINERAL OIL/PETROLATUM, WHITE OPHTH OINT 3.5 GM OU PRN (15:08)
[2021-04-15] MEDS ORDERED: LIP THERAPY VASELINE TP PRN (15:08)
[2021-04-15] MEDS ORDERED: FUROSEMIDE 40 MG/4 ML INJ IV ONE (15:12)
[2021-04-15] MEDS ORDERED: FUROSEMIDE 20 MG/2 ML INJ ONE (15:17)
--- NOTE | 2021-04-15 15:20 | XRay Report ---
CHEST 1 VIEW 2:42 PM INDICATION: post intubation. COMPARISON: Earlier today FINDINGS: Support devices: Endotracheal tube has been placed in satisfactory position. Esophagogastric tube is also been placed with tip above the diaphragm. Heart: Stable. Lungs/Pleura: No pneumothorax. Bilateral pulmonary opacities persist. IMPRESSION: 1. No complications after tube placement. Signer Name: Abel Brown MD Signed: 04/15/2021 3:16 PM Workstation Name: [id number]
[2021-04-15] MEDS: PANTOPRAZOLE 40 MG INJ IV SCH (15:26)
[2021-04-15 15:47] LABS: ABG HCO3 23.8 mmol/L (20.0-26.0); ABG Methemoglobin 0.1 % (0.0-1.5); ABG Oxygen Saturation 92.2 % (95.0-99.0); ABG PCO2 44.2 mm Hg; ABG PH 7.349 pH Units (7.350-7.450); ABG PO2 68.7 mm Hg (80.0-90.0)
[2021-04-15] MEDS ORDERED: NORepinephrine/NS 4 MG-250 ML 4 MG/250 ML BAG IV SCH (17:00)
[2021-04-15] MEDS: NORepinephrine/NS 8 MG-250 ML 8 MG/250 ML INFUS..BTL IV SCH ×2 (17:07→23:25)
--- NOTE | 2021-04-15 17:18 | Procedure Note ---
Date of procedure: 04/15/21 Pre-op diagnosis: Hypotension Post-op diagnosis: same Procedure: RIJ CVL placement (Full dictation # [id number]) Please see dictated notes for full details
--- NOTE | 2021-04-15 17:56 | XRay Report ---
CHEST 1 VIEW 5:20 PM INDICATION: RIJ TLC placement. COMPARISON: Earlier today. FINDINGS: Support devices: There is a new right IJ catheter, tip projects over the right atrium. Tubes are unch anged. Heart: Stable. Lungs/Pleura: Bilateral pulmonary opacities are stable. No pneumothorax. IMPRESSION: 1. Right IJ catheter tip projects over the right atrium. Signer Name: Abel Brown MD Signed: 04/15/2021 5:52 PM Workstation Name: [id number]
[2021-04-15] MEDS: GABAPENTIN 300 MG CAP PO SCH (18:26)
[2021-04-15] MEDS ORDERED: VASOPRESSIN 20 UNIT in SODIUM CHLORIDE 0.9% 100 ML IV SCH (19:00)
[2021-04-15] MEDS: PRAVASTATIN 40 MG TAB PO SCH (22:25)
[2021-04-15] MEDS: SENNOSIDES/DOCUSATE SODIUM 8.6/50 MG TAB FEEDTUBE SCH (22:25)
[2021-04-15] MEDS: FAMOTIDINE 20 MG/2 ML INJ IV SCH (22:25)
[2021-04-16] MEDS: BENZONATATE 100 MG CAP PO SCH ×4 (01:12→23:04)
[2021-04-16 04:32] LABS: ABG Base Excess -2.4 mmol/L (-2.0-3.0); ABG HCO3 22.4 mmol/L (20.0-26.0); ABG Methemoglobin 0.2 % (0.0-1.5); ABG PCO2 38.7 mm Hg; ABG PH 7.379 pH Units (7.350-7.450); ABG PO2 73.3 mm Hg (80.0-90.0)
[2021-04-16] MEDS: NORepinephrine/NS 8 MG-250 ML 8 MG/250 ML INFUS..BTL IV SCH ×2 (05:18→21:46)
[2021-04-16 08:06] LABS: Hematocrit 32.4 % (35.5-45.6); Mean Corpuscular HGB Conc 34 % (32-34); Mean Corpuscular Volume 92 fl (84-94); Red Blood Count 3.53 M/mm3 (3.65-5.03); Red Cell Distribution Width 16.6 % (13.2-15.2)
--- NOTE | 2021-04-16 08:14 | Progress Note ---
Assessment and Plan Assessment and plan: 58-year-old male with past medical history of hypertension, congestive heart failure, PA 18 years ago presenting for complaint of shortness of breath of onset last Friday. Patient states that over the course the last 2 days his symptoms progressively worsened. He had associated symptoms of fever, dry cough, poor p.o. intake, diarrhea and generalized weakness. Ongoing evaluation and treatment for covid pneumonia Acute hypoxic respiratory failure COVID-19 pneumonia Sepsis. Present on admission. Patient met criteria given the fever, tachycardia and diagnosis of pneumonia. Transaminitis. Etiology secondary to sepsis. Chronic CHF EF of 30 to 35%. Hypertension. Hyperlipidemia. History of rheumatoid arthritis. Peripheral neuropathy. Nonsustained V. tach History of coronary artery disease status post PCI. Hypermagnesemia. Hospital Course: 03/29/2021: Cardiology evaluated patient due to 5 beats NSVT. Increased coreg, continue entresto. Patient follows with Dr Martinez. ID evaluated patient, Remdesivir started. Will continue supportive care. 03/30/2021: Respiratory distress overnight. LIkely an allergic reaction to remdesivir. Remdesivir has since been discontinued. Was on BIPAP on encounter and has since been dropped to 15 l/min salter nc. Continue supportive management. Will order inflammatory markers. 03/31/2021: Remains on salter nc 15l /min. sats 88-90% but in no distress. Continue supporitve management. Increased steroids to 60 q6hr. Obtained Pulmonology consult. CXR ordered, will follow. 04/01/2021: Remains on salter nc 12l /min. sats 88-90% but in no distress. Titrate down O2 requirements, ok with sats > 88%. Continue supporitve m anagement. Lasix 20 mg IV x 1 ordered. 04/02/2021: Remains on salter nc 12l /min. Able to ambulate without any distress but does desaturate to 78%. Sats 88-90% when resting. Titrate down O2 requirem ents, ok with sats > 88%. Lasix 40 mg IV twice daily x 2 doses ordered. Continue supportive management 04/03/2021. Remains on salter nc but decreased from 12l /min to 8 L/min. Titrate down O2 requirements, ok with sats > 88%. Continue Lasix as needed 04/04/2021. Patient's oxygen was decreased to 10 L/min but was noted to have desaturation into the 70s. Therefore, patient was placed on 15 L with nonrebreather. Continue prone positioning as able. Patient has significantly elevated D-dimer. However, Doppler studies and CTA of chest were negative. Continue to trend D-dimer along with other inflammatory markers. Prognosis is guarded 04/05/2021. Patient sitting up in a chair and states that he feels comfortable. Patient previously on nonrebreather plus Salter nasal cannula 15 L FiO2 100% wh ich has now been weaned to 8 L. Continue prone positioning as possible. Repeat D-dimer on 04/03 was still greater than 10,000 but CTA of chest and Doppler studies of lower extremities were negative. Recheck D-dimer in a.m. 04/06/2021. D-dimer is slightly decreased to ~8700. Patient remains on salter nasal cannula 8 L/min. Continue prone positioning as possible. Continue to trend inflammatory markers. 04/07/2021. Patient remains on salter nasal cannula 8 L/min. Continue prone positioning as possible. Continue to trend inflammatory markers. PT/OT. Exercise pulse oximetry testing at discharge. 04/08/2021. Patient remains on salter nasal cannula increased to 10 L/min. Continue prone positioning as possible. Continue to trend inflammatory markers. Continue IV Solu-Medrol per pulmonary recommendations. BG is stable. 04/09/2021. Patient remains on salter nasal cannula increased to 10 L/min. Continue prone positioning as possible. Continue to trend inflammatory markers. Continue IV Solu-Medrol per pulmonary recommendations. BG is stable. 04/10/2021 Patient with Covid-19 with acute resp failure . Still on Oxygen at 10 l/min. Continue current. Repeat labs in am. 04/11/2021 Patient with Covid-19 pneumonia with acute resp failure. Now on Oxygen at 6 l/min down from 10 l/min yesterday.. Pulm following. Likely dc home in few days. To obtain ambulatory pulse ox to determine need for Oxygen prior to discharge. 04/12/2021 Acute hypoxic respiratory failure due to Covid-19 pneumonia. On 11 L oxygen by nasal cannula. Has thrombocytopenia, no bleeding noted and will cynthia tor. Nonsustained V. tach, on beta-anuja. Cardiology will be informed. Will check CBC, BMP and magnesium in the morning. 04/13/2021. Acute hypoxic respiratory failure. Was on 7 L oxygen by nasal cannula earlier this morning but has been increased to 11 L oxygen due to worsening hypoxia. Thrombocytopenia is unchanged, no bleeding reported. Hypermagnesemia has resolved. Had a low-grade fever with temperature of 100 and will continue monitoring, will do further work-up if it reoccurs. No indication for antibiotic at this time. 04/14/2021 Patient with Covid-19 pneumonia with acute resp failure. Now on oxygen at 15 l/min, non rebreather. 04/15/21 Patient with Covid-19 pneumonia with acute resp failure. This morning became worse with respiratory distress, so put on BIPAP. he was hypoxic, ABG shows hypoxemia. I discussed with Alexis Aj and he recommended transfer to ICU and Intubation by Anesthesiology. I discussed this with patient and at bedside. CXR shows worse pneumonia. 04/16/21 Patient with Covid-19 pneumonia with acute respiratory failure. Transferred to ICU and intubated yesterday, placed on ventilator because of worsening respiratory failure with hypoxia. He is hypotensive on pressors. Patient is critically ill. Prognosis guarded. He is a full code. The high probability of a clinically significant, sudden or life threatening deterioration of the [cardiac, respiratory, vascular system(s) required my full and direct attention, intervention and personal management. The aggregate critical care time was [42] minutes. This time is in addition to time spent performing reported procedures but includes the following: [x] Data Review and interpretation [x] Patient assessment and monitoring of vital signs [x] Documentation [x] Medication orders and management History Interval history: Patient had resp distress hypoxic yesterday so transferred to ICU and intubated Hospitalist Physical - Physical exam Narrative exam: Gen: Not in acute distress, intubated, HEENT: Normocephalic, atraumatic Lungs: Bilateral rales, no wheeze Heart: S1 and S2 reg, no murmurs, rubs or gallop Abd:soft, non-tender, non distended, normal bowel sounds Ext: No edema, clubbing or cyanosis Neuro: Sedated, intubated - Constitutional Vitals: Temp Pulse Resp BP Pulse Ox 98.2 F 65 30 H 144/78 100 04/16/21 07:36 04/16/21 06:00 04/16/21 06:00 04/16/21 06:00 04/16/21 06:00 General appearance: Present: no acute distress HEART Score - HEART Score Troponin: Troponin T 0.013 ng/mL (0.00-0.029) 04/15/21 07:13 Results - Labs CBC & Chem 7: 04/16/21 07:19 04/16/21 Unknown Labs: Laboratory Last Values WBC 6.4 K/mm3 (4.5-11.0) 04/13/21 06:54 RBC 4.18 M/mm3 (3.65-5.03) 04/13/21 06:54 Hgb 12.8 gm/dl (11.8-15.2) 04/13/21 06:54 Hct 38.0 % (35.5-45.6) 04/13/21 06:54 MCV 91 fl (84-94) 04/13/21 06:54 MCH 31 pg (28-32) 04/13/21 06:54 MCHC 34 % (32-34) 04/13/21 06:54 RDW 16.4 % (13.2-15.2) H 04/13/21 06:54 Plt Count 123 K/mm3 (140-440) L 04/13/21 06:54 Lymph % (Auto) 4.6 % (13.4-35.0) L 04/13/21 06:54 [place] % (Auto) 9.6 % (0.0-7.3) H 04/13/21 06:54 Eos % (Auto) 1.7 % (0.0-4.3) 04/13/21 06:54 Baso % (Auto) 0.6 % (0.0-1.8) 04/13/21 06:54 Lymph # (Auto) 0.3 K/mm3 (1.2-5.4) L 04/13/21 06:54 [place] # (Auto) 0.6 K/mm3 (0.0-0.8) 04/13/21 06:54 Eos # (Auto) 0.1 K/mm3 (0.0-0.4) 04/13/21 06:54 Baso # (Auto) 0.0 K/mm3 (0.0-0.1) 04/13/21 06:54 Add Manual Diff Complete 04/06/21 05:03 Total Counted 100 04/06/21 05:03 Seg Neutrophils % 83.5 % (40.0-70.0) H 04/13/21 06:54 Band Neutrophils % 1.0 % 04/06/21 05:03 Lymphocytes % (Manual) 1.0 % (13.4-35.0) L 04/06/21 05:03 Monocytes % (Manual) 2.0 % (0.0-7.3) 04/06/21 05:03 Nucleated RBC % Not Reportable 04/06/21 05:03 Seg Neutrophils # 5.4 K/mm3 (1.8-7.7) 04/13/21 06:54 Seg Neutrophils # Man 11.2 K/mm3 (1.8-7.7) H 04/06/21 05:03 Band Neutrophils # 0.1 K/mm3 04/06/21 05:03 Lymphocytes # (Manual) 0.1 K/mm3 (1.2-5.4) L 04/06/21 05:03 Abs React Lymphs (Man) 0.0 K/mm3 04/06/21 05:03 Monocytes # (Manual) 0.2 K/mm3 (0.0-0.8) 04/06/21 05:03 Eosinophils # (Manual) 0.0 K/mm3 (0.0-0.4) 04/06/21 05:03 Basophils # (Manual) 0.0 K/mm3 (0.0-0.1) 04/06/21 05:03 Metamyelocytes # 0.0 K/mm3 04/06/21 05:03 Myelocytes # 0.0 K/mm3 04/06/21 05:03 Promyelocytes # 0.0 K/mm3 04/06/21 05:03 Blast Cells # 0.0 K/mm3 04/06/21 05:03 WBC Morphology Not Reportable 04/06/21 05:03 Hypersegmented Neuts Not Reportable 04/06/21 05:03 Hyposegmented Neuts Not Reportable 04/06/21 05:03 Hypogranular Neuts Not Reportable 04/06/21 05:03 Smudge Cells Not Reportable 04/06/21 05:03 Toxic Granulation Not Reportable 04/06/21 05:03 Toxic Vacuolation Not Reportable 04/06/21 05:03 Dohle Bodies Not Reportable 04/06/21 05:03 Pelger-Huet Anomaly Not Reportable 04/06/21 05:03 Adan Rods Not Reportable 04/06/21 05:03 Platelet Estimate Consistent w auto 04/06/21 05:03 Clumped Platelets Not Reportable 04/06/21 05:03 Plt Clumps, EDTA Not Reportable 04/06/21 05:03 Large Platelets Not Reportable 04/06/21 05:03 Giant Platelets Not Reportable 04/06/21 05:03 Platelet Satelliting Not Reportable 04/06/21 05:03 Plt Morphology Comment Not Reportable 04/06/21 05:03 RBC Morphology Not Reportable 04/06/21 05:03 Dimorphic RBCs Not Reportable 04/06/21 05:03 Polychromasia Not Reportable 04/06/21 05:03 Hypochromasia Not Reportable 04/06/21 05:03 Poikilocytosis 1+ 04/06/21 05:03 Anisocytosis Not Reportable 04/06/21 05:03 Microcytosis Not Reportable 04/06/21 05:03 Macrocytosis Not Reportable 04/06/21 05:03 Spherocytes Not Reportable 04/06/21 05:03 Pappenheimer Bodies Not Reportable 04/06/21 05:03 Sickle Cells Not Reportable 04/06/21 05:03 Target Cells Not Reportable 04/06/21 05:03 Tear Drop Cells Not Reportable 04/06/21 05:03 Ovalocytes Not Reportable 04/06/21 05:03 Helmet Cells Not Reportable 04/06/21 05:03 [place] Bodies Not Reportable 04/06/21 05:03 [place] Rings Not Reportable 04/06/21 05:03 [place]ar Cells Not Reportable 04/06/21 05:03 Bite Cells Not Reportable 04/06/21 05:03 Crenated Cell Not Reportable 04/06/21 05:03 Elliptocytes Not Reportable 04/06/21 05:03 Acanthocytes (Spur) Not Reportable 04/06/21 05:03 Rouleaux Not Reportable 04/06/21 05:03 Hemoglobin C Crystals Not Reportable 04/06/21 05:03 Schistocytes Not Reportable 04/06/21 05:03 Malaria parasites Not Reportable 04/06/21 05:03 Luke Bodies Not Reportable 04/06/21 05:03 Hem Pathologist Commnt No 04/06/21 05:03 PT 13.2 Sec. (12.2-14.9) 03/28/21 Unknown INR 0.95 (0.87-1.13) 03/28/21 Unknown APTT 38.7 Sec. (24.2-36.6) H 03/28/21 Unknown D-Dimer > 24330 ng/mlDDU (0-234) H 04/15/21 07:13 ABG pH 7.379 pH Units (7.350-7.450) 04/16/21 03:27 POC ABG pCO2 42.0 mmHg (32.0-48.0) 03/29/21 20:03 ABG pCO2 38.7 mm Hg 04/16/21 03:27 POC ABG pO2 51.4 mmHg (83-108) L 03/29/21 20:03 ABG pO2 73.3 mm Hg (80.0-90.0) L 04/16/21 03:27 POC ABG HCO3 18.6 03/29/21 20:03 ABG HCO3 22.4 mmol/L (20.0-26.0) 04/16/21 03:27 ABG O2 Saturation 94.0 % (95.0-99.0) L 04/16/21 03:27 ABG O2 Content 18.9 (0.0-44) 04/16/21 03:27 POC ABG Base Excess -8.0 03/29/21 20:03 ABG Base Excess -2.4 mmol/L (-2.0-3.0) L 04/16/21 03:27 ABG Hemoglobin 14.5 gm/dl (14.0-18.0) 04/16/21 03:27 ABG Oxyhemoglobin 77.6 (94-98) L 03/29/21 20:03 ABG Carboxyhemoglobin 1.0 % (0.0-5.0) 04/16/21 03:27 ABG Methemoglobin 0.2 % (0.0-1.5) 04/16/21 03:27 ABG Sodium 136.8 mmol/L (136.0-145.0) 03/29/21 20:03 ABG Potassium 4.0 mmol/L (3.40-4.50) 03/29/21 20:03 ABG Chloride 104.0 mmol/L (98-107) 03/29/21 20:03 ABG Glucose 275 mg/dL (65-95) H 03/29/21 20:03 Oxyhemoglobin 92.8 % (95.0-99.0) L 04/16/21 03:27 Carboxyhemoglobin 1.5 (0.5-1.5) 03/29/21 20:03 FiO2 90 % 04/16/21 03:27 FiO2 % 100.0 03/29/21 20:03 Sodium 136 mmol/L (137-145) L 04/15/21 13:07 Potassium 4.7 mmol/L (3.6-5.0) 04/15/21 13:07 Chloride 103.9 mmol/L (98-107) 04/15/21 13:07 Carbon Dioxide 19 mmol/L (22-30) L 04/15/21 13:07 Anion Gap 18 mmol/L 04/15/21 13:07 BUN 19 mg/dL (9-20) 04/15/21 13:07 Creatinine 0.7 mg/dL (0.8-1.3) L 04/15/21 13:07 Estimated GFR > 60 ml/min 04/15/21 13:07 BUN/Creatinine Ratio 27 % 04/15/21 13:07 Glucose 108 mg/dL (75-100) H 04/15/21 13:07 POC Glucose 108 mg/dL (70-105) H 04/16/21 07:47 Lactic Acid 1.60 mmol/L (0.7-2.0) 03/28/21 Unknown Calcium 8.6 mg/dL (8.4-10.2) 04/15/21 13:07 Phosphorus 2.90 mg/dL (2.5-4.5) 04/14/21 23:41 Magnesium 2.30 mg/dL (1.7-2.3) 04/15/21 13:07 Ferritin 1391.0 ng/mL (30.0-300.0) H 04/15/21 07:13 Total Bilirubin 0.90 mg/dL (0.1-1.2) 04/02/21 05:57 AST 42 units/L (5-40) H 04/02/21 05:57 ALT 32 units/L (7-56) 04/02/21 05:57 Alkaline Phosphatase 85 units/L (35-129) 04/02/21 05:57 Lactate Dehydrogenase 728 units/L (91-180) H 04/15/21 07:13 Troponin T 0.013 ng/mL (0.00-0.029) 04/15/21 07:13 C-Reactive Protein 15.20 mg/dL (0.00-1.30) H 04/15/21 07:13 Total Protein 6.6 g/dL (6.3-8.2) 04/02/21 05:57 Albumin 3.0 g/dL (3.9-5) L 04/02/21 05:57 Albumin/Globulin Ratio 0.8 % 04/02/21 05:57 Procalcitonin 0.37 ng/mL (<0.15) 03/28/21 09:25 Arterial Blood Glucose 275 mg/dL (65-95) H 03/29/21 20:03 Arterial Blood Ionized Calcium 4.5 mg/dL (4.6-5.3) L 03/29/21 20:03 Urine Color [place] (Yellow) 03/28/21 Unknown Urine Turbidity Clear (Clear) 03/28/21 Unknown Urine pH 5.0 (5.0-7.0) 03/28/21 Unknown Ur Specific [place] 1.038 (1.003-1.030) H 03/28/21 Unknown Urine Protein >500 mg/dL (Negative) 03/28/21 Unknown Urine Glucose (UA) 50 mg/dL (Negative) 03/28/21 Unknown Urine Ketones Tr mg/dL (Negative) 03/28/21 Unknown Urine Blood Mod (Negative) 03/28/21 Unknown Urine Nitrite Neg (Negative) 03/28/21 Unknown Urine Bilirubin Neg (Negative) 03/28/21 Unknown Urine Urobilinogen 2.0 mg/dL (<2.0) 03/28/21 Unknown Ur Leukocyte Esterase Neg (Negative) 03/28/21 Unknown Urine WBC (Auto) 6.0 /HPF (0.0-6.0) 03/28/21 Unknown Urine RBC (Auto) 2.0 /HPF (0.0-6.0) 03/28/21 Unknown U Epithel Cells (Auto) < 1.0 /HPF (0-13.0) 03/28/21 Unknown Urine Mucus Few /HPF 03/28/21 Unknown Coronavirus (PCR) Positive (Negative) A 03/28/21 Unknown [place]/IV: Voiding Method Condom Catheter Active Medications - Current Medications Current Medications: Generic Name Dose Route Start Last Admin Trade Name Freq PRN Reason Stop Dose Admin Acetaminophen 650 mg 03/28/21 12:45 Acetaminophen 325 Mg Tab PO Q4H PRN Pain MILD(1-3)/Fever >100.5/MIRANDA Albuterol 2.5 mg 04/08/21 11:23 Albuterol 2.5 Mg/3 Ml Nebu IH Q4H PRN Shortness of breath. Arformoterol Tartrate 15 mcg 04/08/21 20:00 04/15/21 19:55 Arformoterol 15 Mcg/2 Ml Nebu IH Not Given Q12HRT LISSETTE Aspirin 81 mg 03/29/21 10:00 04/15/21 10:41 Aspirin 81 Mg Tab Chew PO 81 mg QDAY LISSETTE Administration Benzonatate 100 mg 03/29/21 07:00 04/16/21 06:11 Benzonatate 100 Mg Cap PO Not Given Q8HR LISSETTE Budesonide 0.5 mg 04/08/21 20:00 04/15/21 19:55 Budesonide 0.5 Mg/2 Ml Nebu IH Not Given Q12HRT LISSETTE Carvedilol 12.5 mg 04/11/21 11:00 04/15/21 22:24 Carvedilol 12.5 Mg Tab PO 12.5 mg BID LISSETTE Administration Enoxaparin Sodium 40 mg 03/28/21 14:00 04/15/21 10:42 Enoxaparin 40 Mg/0.4 Ml Inj SUB-Q 40 mg DAILY LISSETTE Administration Protocol Famotidine 20 mg 04/15/21 22:00 04/15/21 22:25 Famotidine 20 Mg/2 Ml Inj IV 20 mg BID LISSETTE Administration Fentanyl 50 mcg 04/15/21 14:51 Fentanyl 100 Mcg/2 Ml Inj IV Q10MIN PRN ANALGESIA Gabapentin 300 mg 03/29/21 18:00 04/15/21 18:26 Gabapentin 300 Mg Cap PO 300 mg QPM LISSETTE Administration Hydrophilic Ointment 1 applic 04/15/21 15:08 Lip Therapy Vaseline TP Q2HR PRN Dry Lips Fentanyl Citrate 2,000 mcg in 100 mls @ 4.325 mls/hr 04/15/21 15:00 04/16/21 07:26 Fentanyl Drip Premix IV 4 mcg/kg/hr TITR LISSETTE 17.3 mls/hr Titration Protocol 1 MCG/KG/HR Propofol 1,000 mg in 100 mls @ 2.595 mls/hr 04/15/21 16:00 04/16/21 05:21 Diprivan 10 Mg/Ml IV 20 mcg/kg/min TITR LISSETTE 10.38 mls/hr Administration Protocol 5 MCG/KG/MIN NORepinephrine/NS 8 MG-250 ML 8 mg in 250 mls @ 3.75 mls/hr 04/15/21 17:00 04/16/21 05:18 Norepinephrine/Ns 8 Mg-250 Ml (Double Conc) IV 20 mcg/min TITRATE LISSETTE 37.5 mls/hr Administration Protocol 2 MCG/MIN Norepinephrine 4 mg in 250 mls @ 7.5 mls/hr 04/15/21 17:00 04/15/21 18:27 Levophed Drip 4 Mg/Ns 250 Ml IV 20 mcg/min TITR LISSETTE 75 mls/hr Administration Protocol 2 MCG/MIN Vasopressin 20 unit/ Sodium 101 mls @ 9.09 mls/hr 04/15/21 19:00 04/16/21 05:21 Chloride IV 0.03 units/min TITR LISSETTE 9.09 mls/hr Administration Protocol 0.03 UNITS/MIN Labetalol HCl 10 mg 03/28/21 15:34 04/15/21 05:42 Labetalol 20 Mg/4 Ml Inj IV 10 mg Q6HR PRN Administration sbp > 160, hold for hr < 70 Multi-Ingred Cream/Lotion/Oil/Oint 1 applic 04/15/21 15:08 Mineral Oil/Petrolatum, White Ophth Oint 3.5 Gm OU Q4HR PRN Dry Eye(s) Ondansetron HCl 4 mg 03/28/21 12:45 Ondansetron 4 Mg/2 Ml Inj IV Q8H PRN Nausea And Vomiting Oxycodone/Acetaminophen 1 tab 03/28/21 12:45 04/01/21 10:36 Oxycodone /Acetaminophen 5-325mg Tab PO 1 tab Q6H PRN Administration Pain, Moderate (4-6) Pantoprazole Sodium 40 mg 04/15/21 15:00 04/15/21 15:26 Pantoprazole 40 Mg Inj IV 40 mg QDAY LISSETTE Administration Pravastatin Sodium 40 mg 03/29/21 22:00 04/15/21 22:25 Pravastatin 40 Mg Tab PO 40 mg QHS LISSETTE Administration Senna/Docusate Sodium 1 tab 04/15/21 22:00 04/15/21 22:25 Sennosides/Docusate Sodium 8.6/50 Mg Tab FEEDTUBE 1 tab BID LISSETTE Administration Sodium Chloride 10 ml 03/28/21 22:00 04/15/21 22:25 Sodium Chloride 0.9% 10 Ml Flush Syringe IV 10 ml BID LISSETTE Administration Sodium Chloride 10 ml 03/28/21 12:45 Sodium Chloride 0.9% 10 Ml Flush Syringe IV PRN PRN LINE FLUSH Nutrition/Malnutrition Assess - Dietary Evaluation Nutrition/Malnutrition Findings: Nutrition Notes Start: 03/29/21 14:40 Freq: Status: Active Protocol: Document 04/10/21 12:13 JADEN (Rec: 04/10/21 12:41 JADEN [id number]) Nutrition Notes Need for Assessment generated from: health program manager Initial or Follow up Reassessment Current Diagnosis Heart Failure Other Pertinent Diagnosis Pneumonia, possible assoc w/ COVID-19 Current Diet Cardiac Diet, since 03/28. Labs/Tests 04/06: CO2 31, BUN 22, Cr 0.7, Glu 145. Pertinent Medications 04/10: Reviewed. Height 5 ft 5 in Weight 86.5 kg [place] Body Weight (kg) 61.81 BMI 31.7 Intake Prior to Admission Excellent Weight Status Obese Subjective/Other Information Pt reported lack of appetite and diarrhea upon admission, but since, has improved. Currently Pt with regular BM. Percent of energy/protein needs met: Prescribed Cardiac Diet provides with energy/protein needs during LOS (2230 Kcal/ 85 g). Burn Absent Trauma Absent GI Symptoms None Food Allergy No Skin Integrity/Comment Integumentary; clear,warm,dry. Current % PO Good (75-100%) Minimum of two criteria No physical signs of malnutrition #1 Nutrition Diagnosis No nutrition diagnosis at this time Comments: Pt reported increased appetite and tolerance of food; currently, 100% of meals intake. Diagnosis Progress(for reassessment Improved documentation) Is patient on ventilator? No Is Patient Ambulatory and/or Out of Bed Yes REE-([place]-St. Jeor-ambulatory/OOB) [ 2030.444 [id number]] Kcal/Kg value to use for calculation 26 Approximate Energy Requirements Using 2249 kcal/Kg Calculation Used for Recommendations Kcal/kg Additional Notes Protein: 1.0-1.2 g/Kg/day; 62- 75 g/day; 248-300 Kcal/day ( from IBW). Fluids: 1.0 ml/kcal/day, or as per MD. Nutrition Intervention Change Diet Order: continue Cardiac Diet during LOS. Goal #1 Maintain body weight within +/ -3% of current BWt during LOS. Goal #2 Reach and maintain acceptable chemistry lab values during LOS. Follow-Up By: 04/17/21 Additional Comments Continue monitoring % of meals PO intake, acceptance of food , and BM.
[2021-04-16] MEDS: ARFORMOTEROL 15 MCG/2 ML NEBU IH SCH ×2 (08:20→22:18)
[2021-04-16] MEDS: BUDESONIDE 0.5 MG/2 ML NEBU IH SCH ×2 (08:20→22:18)
[2021-04-16 08:24] LABS: Platelet Count 97 K/mm3 (140-440)
[2021-04-16] MEDS: SENNOSIDES/DOCUSATE SODIUM 8.6/50 MG TAB FEEDTUBE SCH ×2 (09:22→22:51)
[2021-04-16] MEDS: ASPIRIN 81 MG TAB CHEW PO SCH (09:22)
[2021-04-16] MEDS: ENOXAPARIN 40 MG/0.4 ML INJ SUB-Q SCH (09:22)
[2021-04-16] MEDS: FAMOTIDINE 20 MG/2 ML INJ IV SCH ×2 (09:22→22:49)
[2021-04-16] MEDS: carvediloL 12.5 MG TAB PO SCH ×2 (09:24→22:49)
[2021-04-16] MEDS: SACUBITRIL/VALSARTAN 49-51 MG TAB PO SCH ×2 (09:29→22:50)
[2021-04-16] MEDS ORDERED: SODIUM CHLORIDE 0.9% 1000 ML 1,000 ML ONE (09:35)
[2021-04-16] MEDS ORDERED: DOBUTamine/D5W 500 MG/250 ML 500 MG/250 ML BAG IV SCH (11:00)
[2021-04-16 11:26] LABS: Alanine Aminotransferase 25 units/L (7-56); Albumin 2.1 g/dL (3.9-5); Blood Urea Nitrogen 21 mg/dL (9-20); Hemolysis Index 3
--- NOTE | 2021-04-16 11:27 | Vascular Lab Report ---
DUPLEX DOPPLER LOWER EXTREMITY VEINS, BILATERAL INDICATION: swelling. TECHNIQUE: Duplex doppler imaging was performed through the veins of both lower extremities using ve nous compression and other maneuvers. COMPARISON: 04/02/2021. FINDINGS: Right Common femoral vein: Negative. Right Superficial femoral vein: Negative. Right Popliteal vein: Negative. Right Calf veins: Negative. Left Common femoral vein: Negative. Left Superficial femoral vein: Negative. Left Popliteal vein: Negative. Left Calf veins: Negative. Additional findings: None. IMPRESSION: No sonographic evidence for DVT in either lower extremity. Signer Name: Bimal Devries Jr, MD Signed: 04/16/2021 11:23 AM Workstation Name: [id number]
[2021-04-16 11:28] LABS: BUN/Creatinine Ratio 30
--- NOTE | 2021-04-16 13:33 | Progress Note ---
Assessment and Plan Patient is a 58 y/o male with a PMHx of HrEF (30-35%), CAD s/p PCI, ischemic cardiomyopathy, HTN Breakthrough COVID-19 PNA Sepsis Acute hypoxic respiratory failure * Patient received both doses of Pfizer vaccine. COVID PCR positive * Currently intubated, sedated, and on pressors * Pulmonology is following Nonsustained Vtach HFrEF CAD s/p PCI HTN * Placement of ICD has been discussed with patient in the office but patient refuses * Echo 08/01/2020- LV wall thickness is mildly increased. EF 30-35%, RV size is mildly dilated, The RV systolic function is normal, severely dilated left atrium, there is mild aortic regurgitation there is moderate mitral valve prolapse, posterior leaflet, there is mild mitral regurgitation. * Lexiscan MPI stress test 12/24/2019- Large fixed inferior defect, medium sized fixed inferior lateral defect findings suggestive of prior infarction in right coronary and left circumflex coronary arteries. No evidence of significant stress-induced ischemia Plan: Echo pending. Stopped levophed and vasopressin. Inititiated dobutamine gtt. Will continue to follow Patient seen in conjunction with Dr. Vann who agrees with this plan. - Patient Problems (1) HFrEF (heart failure with reduced ejection fraction) Current Visit: Yes Status: Acute (2) CAD (coronary artery disease) Current Visit: Yes Status: Acute (3) Cardiomyopathy Current Visit: Yes Status: Acute (4) HTN (hypertension) Current Visit: Yes Status: Acute (5) Pneumonitis Current Visit: Yes Status: Acute (6) Suspected COVID-19 virus infection Current Visit: Yes Status: Acute Subjective Date of service: 04/16/21 Principal diagnosis: Acute hypoxemic resp failure; COVID-19 infxn; Pneumonia; CAD; HFrEF; HTN Interval history: Patient intubated and sedated. Patient was transferred to ICU yesterday due to worsening hypoxia Sinus 60s on monitor Objective Vital Signs Temp Pulse Pulse Pulse Resp BP Pulse Ox 04/16/21 12:00 56 L 25 H 126/70 100 04/16/21 11:30 60 25 H 113/64 100 04/16/21 11:00 61 25 H 111/63 100 04/16/21 10:30 65 25 H 111/64 100 04/16/21 10:00 72 25 H 107/66 98 04/16/21 09:30 63 25 H 111/63 100 04/16/21 09:00 57 L 25 H 157/79 100 04/16/21 08:30 56 L 25 H 152/78 100 04/16/21 08:00 55 L 25 H 151/75 100 04/16/21 07:36 98.2 F 04/16/21 07:30 87 33 H 97/59 98 04/16/21 07:00 82 40 H 125/62 93 04/16/21 06:30 75 31 H 128/77 100 04/16/21 06:00 65 30 H 144/78 100 04/16/21 05:51 64 29 H 135/81 100 04/16/21 05:41 75 30 H 123/72 100 04/16/21 05:31 64 30 H 123/72 100 04/16/21 05:21 75 30 H 107/66 100 04/16/21 05:11 79 29 H 105/63 100 04/16/21 05:00 78 30 H 105/63 100 04/16/21 04:51 78 30 H 117/63 99 04/16/21 04:41 79 30 H 114/62 99 04/16/21 04:30 79 29 H 114/62 100 04/16/21 04:21 81 28 H 112/67 99 04/16/21 04:20 74 112/67 100 04/16/21 04:11 76 29 H 103/66 99 04/16/21 04:00 76 79 29 H 103/66 99 04/16/21 03:51 79 31 H 112/59 99 04/16/21 03:48 98.4 F 04/16/21 03:41 72 29 H 110/67 99 04/16/21 03:30 72 30 H 110/67 100 04/16/21 03:21 77 30 H 108/62 100 04/16/21 03:11 75 29 H 115/64 100 04/16/21 03:00 80 29 H 108/63 100 04/16/21 02:51 79 30 H 113/62 100 04/16/21 02:41 78 28 H 115/64 100 04/16/21 02:30 81 29 H 115/64 100 04/16/21 02:21 77 29 H 109/64 100 04/16/21 02:11 78 29 H 115/66 99 04/16/21 02:00 82 30 H 115/66 99 04/16/21 01:51 81 30 H 125/65 99 04/16/21 01:41 73 34 H 109/66 96 04/16/21 01:31 85 30 H 75/39 98 04/16/21 01:21 81 29 H 103/61 100 04/16/21 01:11 81 28 H 111/61 100 04/16/21 01:00 80 28 H 109/62 100 04/16/21 00:51 81 29 H 108/66 100 04/16/21 00:41 82 28 H 111/61 100 04/16/21 00:34 79 20 93 04/16/21 00:30 85 28 H 111/61 100 04/16/21 00:25 83 105/62 100 04/16/21 00:21 83 28 H 105/62 100 04/16/21 00:11 82 28 H 100/63 100 04/16/21 00:00 85 27 H 100/63 100 04/15/21 23:51 84 26 H 110/68 100 04/15/21 23:41 85 24 116/63 100 04/15/21 23:33 98.8 F 04/15/21 23:30 84 24 106/61 100 04/15/21 23:20 82 26 H 116/63 99 04/15/21 23:11 82 26 H 114/64 99 04/15/21 23:00 80 25 H 114/64 100 04/15/21 22:51 86 26 H 105/65 99 04/15/21 22:41 81 26 H 116/67 99 04/15/21 22:30 82 26 H 116/67 99 04/15/21 22:21 77 26 H 112/69 99 04/15/21 22:11 84 27 H 114/65 99 04/15/21 22:00 84 27 H 114/65 99 04/15/21 21:51 82 26 H 115/62 99 04/15/21 21:41 85 28 H 107/65 99 04/15/21 21:30 86 28 H 107/65 99 04/15/21 21:21 85 29 H 102/61 99 04/15/21 21:11 85 29 H 91/59 99 04/15/21 21:00 86 29 H 91/59 99 04/15/21 20:51 84 30 H 101/56 99 04/15/21 20:41 85 30 H 102/57 99 04/15/21 20:34 77 25 H 93 04/15/21 20:30 86 31 H 102/57 99 04/15/21 20:21 97.8 F 85 31 H 106/54 99 04/15/21 20:11 82 32 H 105/64 99 04/15/21 20:00 90 30 H 105/64 100 04/15/21 19:56 86 101/63 99 04/15/21 19:51 88 31 H 101/63 99 04/15/21 19:41 86 32 H 100/60 100 04/15/21 19:30 85 32 H 100/60 100 04/15/21 19:21 88 31 H 99/55 100 04/15/21 19:11 85 32 H 96/57 100 04/15/21 19:00 85 31 H 96/57 100 04/15/21 18:51 86 31 H 96/57 100 04/15/21 18:41 87 30 H 91/55 100 04/15/21 18:30 84 33 H 91/55 99 04/15/21 18:21 92 H 35 H 82/50 97 04/15/21 18:11 91 H 35 H 77/47 98 04/15/21 18:00 93 H 35 H 80/48 98 04/15/21 17:51 93 H 35 H 80/48 98 04/15/21 17:41 94 H 34 H 91/58 98 04/15/21 17:30 95 H 32 H 91/58 99 04/15/21 17:21 94 H 34 H 87/53 98 04/15/21 17:11 96 H 30 H 94/59 98 04/15/21 17:00 90 25 H 77/47 98 04/15/21 16:51 94 H 25 H 87/54 97 04/15/21 16:41 96 H 25 H 94/55 100 04/15/21 16:30 98 H 35 H 81/50 98 04/15/21 16:20 94 H 38 H 70/43 96 04/15/21 16:10 95 H 38 H 70/45 95 04/15/21 16:00 97 H 85 85 40 H 105/59 94 04/15/21 15:50 97 H 41 H 105/59 93 04/15/21 15:40 103 H 41 H 133/84 95 04/15/21 15:30 96 H 39 H 96 04/15/21 15:22 94 H 40 H 96 04/15/21 14:19 102 H 166/90 100 - Physical Examination General: Other (intubated and sedated) HEENT: Positive: PERRL Neck: Positive: trachea midline Cardiac: Positive: Reg Rate and Rhythm Lungs: Positive: Ventilated Respirations Neuro: Positive: Other (intubated and sedated) Abdomen: Positive: Soft, Active Bowel Sounds Skin: Negative: Rash, Suspicious Lesions, Ulceration Extremities: Present: upper extr. pulses, lower extr. pulses. Absent: edema - Labs and Meds Cardiac Enzymes 04/16/21 Range/Units Unknown AST 26 (5-40) units/L Lipids 04/16/21 Range/Units Unknown Triglycerides 111 (2-149) mg/dL CBC 04/16/21 Range/Units 07:19 WBC 10.1 (4.5-11.0) K/mm3 RBC 3.53 L (3.65-5.03) M/mm3 Hgb 11.0 L (11.8-15.2) gm/dl Hct 32.4 L (35.5-45.6) % Plt Count 97 L (140-440) K/mm3 Comprehensive Metabolic Panel 04/15/21 04/16/21 Range/Units 13:07 Unknown Sodium 136 L 140 (137-145) mmol/L Potassium 4.7 4.1 (3.6-5.0) mmol/L Chloride 103.9 107.8 H (98-107) mmol/L Carbon Dioxide 19 L 22 (22-30) mmol/L BUN 19 21 H (9-20) mg/dL Creatinine 0.7 L 0.7 L (0.8-1.3) mg/dL Glucose 108 H 122 H (75-100) mg/dL Calcium 8.6 8.0 L (8.4-10.2) mg/dL AST 26 (5-40) units/L ALT 25 (7-56) units/L Alkaline Phosphatase 90 (35-129) units/L Total Protein 5.6 L (6.3-8.2) g/dL Albumin 2.1 L (3.9-5) g/dL - Imaging and Cardiology EKG: report reviewed, image reviewed Echo: report reviewed - Telemetry EKG Rhythm: Sinus Rhythm - EKG Sinus rhythms and dysrhythmias: sinus rhythm Ventricular dysrhythmias: ventricular premature com, non-sustained ventricular Chamber hypertrophy or enlargement: left ventricular hypertro - Allied health notes Allied health notes reviewed: nursing
[2021-04-16 13:42] LABS: Bacteria,Urine 4+ /HPF (Negative); Bilirubin,Urine NEG (Negative); Blood,Urine MOD (Negative); Color,Urine Yellow (Yellow); Mucus,Urine 3+ /HPF
[2021-04-16 13:52] LABS: RBC,Urine > 182.0 /HPF (0.0-6.0)
--- NOTE | 2021-04-16 15:18 | Progress Note ---
Assessment and Plan Acute hypoxemic respiratory failure COVID-19 virus infection Pneumonia due to COVID-19 virus CAD (coronary artery disease) HFrEF (heart failure with reduced ejection fraction) HTN - follow CXR - reduced set TV to 400 ml's - reduced FiO2 to 70% - repeat ABG at 9 pm - wean Dobutrex per cardiology - transition from Propofol to Versed if pulse falls mustapha 40's - follow 2D ECHO result - bilateral lower extremity dopplers negative for DVT - wean Levophed for target MAP > 65 mmHg - too unstable for CTA chest acutely - continue care as below otherwise; - Daily SAT and SBT assessment as tolerated - continue to wean supplemental oxygen for target O2 sat's > 92% acutely - VAP bundle addressed - continue lung protective strategies - continue bronchodilators with pulmonary hygiene per RT - wean per pulmonary driven protocols otherwise - avoid nephrotoxins, renally dose all medications - continue accuchecks with glycemic control per SSI (While critically ill target blood glucose of 140-180 mg/dL; avoid hypoglycemia) - avoid benzodiazepine's, reduce the possibility of delirium - sedation for RASS 0 to -3 acutely - AB's per ID rec's - prn analgesia per CPOT score - Maintenance of sleep-wake cycle, avoid delirium - continue enteral nutritional support at goal rate as tolerated - G.I. & VTE prophylaxis - PT/OT/ROM exercises - continue mobility protocols for pressure ulcer prophylaxis - Monitor hemodynamics closely COVID SPECIFIC INTERVENTIONS - Remdesivir as per ID/Pulmonary developed protocols (Received) - continue systemic steroids for severe COVID-19 infection empirically (Solumedrol) - follow repeat COVID tests results - zinc and vitamin C supplementation - Monitor inflammatory markers per facility protocol - ferritin, Ddimer, CRP - therapeutic anticoagulation per system Protocol based on d-dimer and clinical considerations (VTE prophylaxis) - Continue contact and airborne isolation .... Re-evaluate in am & prn CONDITION: CRITICAL PROGNOSIS: GUARDED CODE STATUS: FULL CODE The high probability of a clinically significant, sudden or life-threatening deterioration of the [respiratory & cardiovascular] system(s) required my full and direct attention, intervention and personal management. The aggregate critical care time was [35] minutes without overlap. Time includes spent on; [x] Data Review and interpretation [x] Patient assessment and monitoring of vital signs [x] Documentation [x] Medication orders and management Subjective Date of service: 04/16/21 Principal diagnosis: Acute hypoxemic resp failure; COVID-19 infxn; Pneumonia; CAD; HFrEF; HTN Interval history: Patient is seen today for: Acute hypoxemic respiratory failure; COVID-19 virus infection; Pneumonia due to COVID-19 virus; CAD; HFrEF; HTN Seen and examined at bedside; 24hour events reviewed; nursing and respiratory care staff consulted; no adverse overnight events reported to me; resting in bed; remains on MVS; FiO2 at 80% but room to wean; started on dobutamine by cards; no emesis or overt aspiration; PIP's still high but trending down; P- plateau now 37 Objective Vital Signs - 12hr 04/16/21 04/16/21 04/16/21 03:21 03:30 03:41 Temperature Pulse Rate 77 72 72 Pulse Rate [ Radial] Respiratory 30 H 30 H 29 H Rate Blood Pressure 108/62 110/67 110/67 O2 Sat by Pulse 100 100 99 Oximetry 04/16/21 04/16/21 04/16/21 03:48 03:51 04:00 Temperature 98.4 F Pulse Rate 79 76 Pulse Rate [ 79 Radial] Respiratory 31 H 29 H Rate Blood Pressure 112/59 103/66 O2 Sat by Pulse 99 99 Oximetry 04/16/21 04/16/21 04/16/21 04:11 04:20 04:21 Temperature Pulse Rate 76 74 81 Pulse Rate [ Radial] Respiratory 29 H 28 H Rate Blood Pressure 103/66 112/67 112/67 O2 Sat by Pulse 99 100 99 Oximetry 04/16/21 04/16/21 04/16/21 04:30 04:41 04:51 Temperature Pulse Rate 79 79 78 Pulse Rate [ Radial] Respiratory 29 H 30 H 30 H Rate Blood Pressure 114/62 114/62 117/63 O2 Sat by Pulse 100 99 99 Oximetry 04/16/21 04/16/21 04/16/21 05:00 05:11 05:21 Temperature Pulse Rate 78 79 75 Pulse Rate [ Radial] Respiratory 30 H 29 H 30 H Rate Blood Pressure 105/63 105/63 107/66 O2 Sat by Pulse 100 100 100 Oximetry 04/16/21 04/16/21 04/16/21 05:31 05:41 05:51 Temperature Pulse Rate 64 75 64 Pulse Rate [ Radial] Respiratory 30 H 30 H 29 H Rate Blood Pressure 123/72 123/72 135/81 O2 Sat by Pulse 100 100 100 Oximetry 04/16/21 04/16/21 04/16/21 06:00 06:30 07:00 Temperature Pulse Rate 65 75 82 Pulse Rate [ Radial] Respiratory 30 H 31 H 40 H Rate Blood Pressure 144/78 128/77 125/62 O2 Sat by Pulse 100 100 93 Oximetry 04/16/21 04/16/21 04/16/21 07:30 07:36 08:00 Temperature 98.2 F Pulse Rate 87 55 L Pulse Rate [ Radial] Respiratory 33 H 25 H Rate Blood Pressure 97/59 151/75 O2 Sat by Pulse 98 93 Oximetry 04/16/21 04/16/21 04/16/21 08:30 09:00 09:30 Temperature Pulse Rate 56 L 57 L 63 Pulse Rate [ Radial] Respiratory 25 H 25 H 25 H Rate Blood Pressure 157/79 157/79 111/63 O2 Sat by Pulse 100 100 100 Oximetry 04/16/21 04/16/21 04/16/21 10:00 10:30 11:00 Temperature Pulse Rate 72 65 61 Pulse Rate [ Radial] Respiratory 25 H 25 H 25 H Rate Blood Pressure 107/66 111/64 111/63 O2 Sat by Pulse 98 100 100 Oximetry 04/16/21 04/16/21 04/16/21 11:30 11:35 12:00 Temperature Pulse Rate 60 63 56 L Pulse Rate [ Radial] Respiratory 25 H 25 H Rate Blood Pressure 113/64 114/65 126/70 O2 Sat by Pulse 100 100 93 Oximetry 04/16/21 04/16/21 04/16/21 12:11 12:21 12:30 Temperature Pulse Rate 56 L 54 L 55 L Pulse Rate [ Radial] Respiratory 25 H 25 H 25 H Rate Blood Pressure 126/70 128/69 128/70 O2 Sat by Pulse 100 100 100 Oximetry 04/16/21 04/16/21 04/16/21 12:41 12:51 13:01 Temperature Pulse Rate 56 L 66 64 Pulse Rate [ Radial] Respiratory 25 H 25 H 25 H Rate Blood Pressure 128/70 128/70 101/50 O2 Sat by Pulse 100 99 98 Oximetry 04/16/21 04/16/21 04/16/21 13:11 13:21 13:30 Temperature Pulse Rate 65 64 63 Pulse Rate [ Radial] Respiratory 25 H 25 H 25 H Rate Blood Pressure 101/50 93/53 93/56 O2 Sat by Pulse 98 98 98 Oximetry Constitutional: no acute distress, other (elderly male with mildly increased respiratory effort at rest on MVS) Eyes: non-icteric ENT: oropharynx moist, other (ETT 24 cm BOLA) Neck: supple, no lymphadenopathy, no JVD Effort: mildly labored Ascultation: Bilateral: rales (bases) Percussion: Bilateral: not dull Cardiovascular: regular rate and rhythm Gastrointestinal: normoactive bowel sounds, soft, non-tender, non-distended (protuberant) Integumentary: normal Extremities: no cyanosis, no edema, pulses normal, no ischemia or petechiae Neurologic: non-focal exam (grossly), pupils equal and round, CN II-XII normal, other (sedated) Psychiatric: other (unable to assess re: AMS) CBC and BMP: 04/16/21 07:19 04/16/21 Unknown ABG, PT/INR, D-dimer: ABG ABG pH 7.379 pH Units (7.350-7.450) 04/16/21 03:27 POC ABG pCO2 42.0 mmHg (32.0-48.0) 03/29/21 20:03 ABG pCO2 38.7 mm Hg 04/16/21 03:27 POC ABG pO2 51.4 mmHg (83-108) L 03/29/21 20:03 ABG pO2 73.3 mm Hg (80.0-90.0) L 04/16/21 03:27 POC ABG HCO3 18.6 03/29/21 20:03 ABG O2 Saturation 94.0 % (95.0-99.0) L 04/16/21 03:27 PT/INR, D-dimer PT 13.2 Sec. (12.2-14.9) 03/28/21 Unknown INR 0.95 (0.87-1.13) 03/28/21 Unknown D-Dimer > 79776 ng/mlDDU (0-234) H 04/15/21 07:13 Abnormal lab findings: Abnormal Labs 03/28/21 03/28/21 03/28/21 08:26 09:25 09:25 WBC RBC Hgb Hct RDW Plt Count Lymph % (Auto) [place] % (Auto) Lymph # (Auto) [place] # (Auto) Baso # (Auto) Seg Neutrophils % Lymphocytes % (Manual) Seg Neutrophils # Seg Neutrophils # Man Lymphocytes # (Manual) APTT D-Dimer 1100.30 H ABG pH POC ABG pO2 ABG pO2 ABG HCO3 ABG O2 Saturation ABG Base Excess ABG Hemoglobin ABG Oxyhemoglobin ABG Glucose Oxyhemoglobin Sodium Chloride Carbon Dioxide BUN Creatinine Glucose 109 H POC Glucose Calcium Magnesium 2.40 H Ferritin AST Lactate Dehydrogenase 677 H C-Reactive Protein 13.70 H Total Protein Albumin Arterial Blood Glucose Arterial Blood Ionized Calcium Ur Specific [place] U Epithel Cells (Auto) Coronavirus (PCR) 03/28/21 03/28/21 03/28/21 09:25 Unknown Unknown WBC RBC Hgb Hct RDW Plt Count 96 L Lymph % (Auto) 7.2 L [place] % (Auto) 10.8 H Lymph # (Auto) 0.5 L [place] # (Auto) Baso # (Auto) Seg Neutrophils % 81.8 H Lymphocytes % (Manual) Seg Neutrophils # Seg Neutrophils # Man Lymphocytes # (Manual) APTT D-Dimer ABG pH POC ABG pO2 ABG pO2 ABG HCO3 ABG O2 Saturation ABG Base Excess ABG Hemoglobin ABG Oxyhemoglobin ABG Glucose Oxyhemoglobin Sodium Chloride Carbon Dioxide BUN Creatinine Glucose POC Glucose Calcium Magnesium Ferritin 1340.0 H AST Lactate Dehydrogenase C-Reactive Protein Total Protein Albumin Arterial Blood Glucose Arterial Blood Ionized Calcium Ur Specific [place] 1.038 H U Epithel Cells (Auto) Coronavirus (PCR) 03/28/21 03/28/21 03/28/21 Unknown Unknown Unknown WBC RBC Hgb Hct RDW Plt Count Lymph % (Auto) [place] % (Auto) Lymph # (Auto) [place] # (Auto) Baso # (Auto) Seg Neutrophils % Lymphocytes % (Manual) Seg Neutrophils # Seg Neutrophils # Man Lymphocytes # (Manual) APTT 38.7 H D-Dimer ABG pH POC ABG pO2 ABG pO2 ABG HCO3 ABG O2 Saturation ABG Base Excess ABG Hemoglobin ABG Oxyhemoglobin ABG Glucose Oxyhemoglobin Sodium Chloride Carbon Dioxide BUN Creatinine Glucose 120 H POC Glucose Calcium Magnesium Ferritin AST 73 H Lactate Dehydrogenase C-Reactive Protein Total Protein Albumin 3.4 L Arterial Blood Glucose Arterial Blood Ionized Calcium Ur Specific [place] U Epithel Cells (Auto) Coronavirus (PCR) Positive A 03/29/21 03/29/21 03/29/21 02:30 02:30 02:30 WBC RBC Hgb Hct RDW 15.4 H Plt Count 107 L Lymph % (Auto) 5.6 L [place] % (Auto) 10.0 H Lymph # (Auto) 0.4 L [place] # (Auto) Baso # (Auto) Seg Neutrophils % 84.2 H Lymphocytes % (Manual) Seg Neutrophils # Seg Neutrophils # Man Lymphocytes # (Manual) APTT D-Dimer ABG pH POC ABG pO2 ABG pO2 ABG HCO3 ABG O2 Saturation ABG Base Excess ABG Hemoglobin ABG Oxyhemoglobin ABG Glucose Oxyhemoglobin Sodium Chloride Carbon Dioxide BUN Creatinine Glucose 128 H POC Glucose Calcium Magnesium 2.60 H Ferritin AST 64 H Lactate Dehydrogenase C-Reactive Protein Total Protein Albumin 3.1 L Arterial Blood Glucose Arterial Blood Ionized Calcium Ur Specific [place] U Epithel Cells (Auto) Coronavirus (PCR) 03/29/21 03/29/21 03/29/21 15:30 19:48 20:03 WBC RBC Hgb Hct RDW Plt Count Lymph % (Auto) [place] % (Auto) Lymph # (Auto) [place] # (Auto) Baso # (Auto) Seg Neutrophils % Lymphocytes % (Manual) Seg Neutrophils # Seg Neutrophils # Man Lymphocytes # (Manual) APTT D-Dimer ABG pH 7.264 L POC ABG pO2 51.4 L ABG pO2 ABG HCO3 ABG O2 Saturation ABG Base Excess ABG Hemoglobin ABG Oxyhemoglobin 77.6 L ABG Glucose 275 H Oxyhemoglobin Sodium Chloride Carbon Dioxide 21 L BUN Creatinine Glucose 125 H POC Glucose 189 H Calcium Magnesium Ferritin AST 64 H Lactate Dehydrogenase C-Reactive Protein Total Protein Albumin 2.8 L Arterial Blood Glucose 275 H Arterial Blood Ionized Calcium 4.5 L Ur Specific [place] U Epithel Cells (Auto) Coronavirus (PCR) 03/30/21 03/31/21 03/31/21 06:07 07:38 07:38 WBC 11.8 H RBC Hgb Hct RDW 15.4 H Plt Count Lymph % (Auto) 2.4 L [place] % (Auto) 8.4 H Lymph # (Auto) 0.3 L [place] # (Auto) 1.0 H Baso # (Auto) Seg Neutrophils % 89.0 H Lymphocytes % (Manual) Seg Neutrophils # 10.5 H Seg Neutrophils # Man Lymphocytes # (Manual) APTT D-Dimer > 35328 H ABG pH POC ABG pO2 ABG pO2 ABG HCO3 ABG O2 Saturation ABG Base Excess ABG Hemoglobin ABG Oxyhemoglobin ABG Glucose Oxyhemoglobin Sodium Chloride Carbon Dioxide BUN Creatinine Glucose 131 H POC Glucose Calcium Magnesium Ferritin AST 49 H Lactate Dehydrogenase C-Reactive Protein Total Protein Albumin 2.7 L Arterial Blood Glucose Arterial Blood Ionized Calcium Ur Specific [place] U Epithel Cells (Auto) Coronavirus (PCR) 03/31/21 03/31/21 04/01/21 07:38 07:38 06:37 WBC RBC Hgb Hct RDW Plt Count Lymph % (Auto) [place] % (Auto) Lymph # (Auto) [place] # (Auto) Baso # (Auto) Seg Neutrophils % Lymphocytes % (Manual) Seg Neutrophils # Seg Neutrophils # Man Lymphocytes # (Manual) APTT D-Dimer ABG pH POC ABG pO2 ABG pO2 ABG HCO3 ABG O2 Saturation ABG Base Excess ABG Hemoglobin ABG Oxyhemoglobin ABG Glucose Oxyhemoglobin Sodium Chloride Carbon Dioxide BUN Creatinine 0.7 L 0.7 L Glucose 122 H 117 H POC Glucose Calcium Magnesium Ferritin 1419.0 H AST 42 H 53 H Lactate Dehydrogenase 752 H C-Reactive Protein 4.40 H Total Protein Albumin 2.9 L 3.2 L Arterial Blood Glucose Arterial Blood Ionized Calcium Ur Specific [place] U Epithel Cells (Auto) Coronavirus (PCR) 04/02/21 04/02/21 04/02/21 05:57 05:57 05:57 WBC 13.6 H RBC Hgb Hct RDW 15.7 H Plt Count Lymph % (Auto) 2.3 L [place] % (Auto) 10.5 H Lymph # (Auto) 0.3 L [place] # (Auto) 1.4 H Baso # (Auto) 0.2 H Seg Neutrophils % 86.0 H Lymphocytes % (Manual) Seg Neutrophils # 11.7 H Seg Neutrophils # Man Lymphocytes # (Manual) APTT D-Dimer > 84414 H ABG pH POC ABG pO2 ABG pO2 ABG HCO3 ABG O2 Saturation ABG Base Excess ABG Hemoglobin ABG Oxyhemoglobin ABG Glucose Oxyhemoglobin Sodium Chloride Carbon Dioxide BUN 22 H Creatinine 0.7 L Glucose 149 H POC Glucose Calcium Magnesium Ferritin AST 42 H Lactate Dehydrogenase 811 H C-Reactive Protein 2.00 H Total Protein Albumin 3.0 L Arterial Blood Glucose Arterial Blood Ionized Calcium Ur Specific [place] U Epithel Cells (Auto) Coronavirus (PCR) 04/02/21 04/02/21 04/03/21 05:57 21:00 05:56 WBC RBC Hgb Hct RDW Plt Count Lymph % (Auto) [place] % (Auto) Lymph # (Auto) [place] # (Auto) Baso # (Auto) Seg Neutrophils % Lymphocytes % (Manual) Seg Neutrophils # Seg Neutrophils # Man Lymphocytes # (Manual) APTT D-Dimer > 24604 H ABG pH POC ABG pO2 ABG pO2 ABG HCO3 ABG O2 Saturation ABG Base Excess ABG Hemoglobin ABG Oxyhemoglobin ABG Glucose Oxyhemoglobin Sodium Chloride Carbon Dioxide BUN Creatinine Glucose POC Glucose 160 H Calcium Magnesium Ferritin 1180.0 H AST Lactate Dehydrogenase C-Reactive Protein Total Protein Albumin Arterial Blood Glucose Arterial Blood Ionized Calcium Ur Specific [place] U Epithel Cells (Auto) Coronavirus (PCR) 04/03/21 04/06/21 04/06/21 05:56 05:03 05:03 WBC 11.7 H RBC Hgb Hct RDW 15.6 H Plt Count Lymph % (Auto) [place] % (Auto) Lymph # (Auto) [place] # (Auto) Baso # (Auto) Seg Neutrophils % Lymphocytes % (Manual) 1.0 L Seg Neutrophils # Seg Neutrophils # Man 11.2 H Lymphocytes # (Manual) 0.1 L APTT D-Dimer 8753.33 H ABG pH POC ABG pO2 ABG pO2 ABG HCO3 ABG O2 Saturation ABG Base Excess ABG Hemoglobin ABG Oxyhemoglobin ABG Glucose Oxyhemoglobin Sodium Chloride Carbon Dioxide BUN Creatinine Glucose POC Glucose Calcium Magnesium Ferritin 1117.0 H AST Lactate Dehydrogenase C-Reactive Protein Total Protein Albumin Arterial Blood Glucose Arterial Blood Ionized Calcium Ur Specific [place] U Epithel Cells (Auto) Coronavirus (PCR) 04/06/21 04/06/21 04/10/21 05:03 11:40 02:30 WBC RBC Hgb Hct RDW Plt Count Lymph % (Auto) [place] % (Auto) Lymph # (Auto) [place] # (Auto) Baso # (Auto) Seg Neutrophils % Lymphocytes % (Manual) Seg Neutrophils # Seg Neutrophils # Man Lymphocytes # (Manual) APTT D-Dimer ABG pH 7.455 H POC ABG pO2 ABG pO2 69.0 L ABG HCO3 27.0 H ABG O2 Saturation 93.7 L ABG Base Excess ABG Hemoglobin 13.8 L ABG Oxyhemoglobin ABG Glucose Oxyhemoglobin 93.3 L Sodium Chloride Carbon Dioxide 31 H BUN 22 H Creatinine 0.7 L Glucose 145 H POC Glucose Calcium Magnesium 2.50 H Ferritin AST Lactate Dehydrogenase C-Reactive Protein Total Protein Albumin Arterial Blood Glucose Arterial Blood Ionized Calcium Ur Specific [place] U Epithel Cells (Auto) Coronavirus (PCR) 04/11/21 04/11/21 04/12/21 05:47 05:47 18:07 WBC RBC Hgb Hct RDW 16.1 H Plt Count 123 L Lymph % (Auto) [place] % (Auto) Lymph # (Auto) [place] # (Auto) Baso # (Auto) Seg Neutrophils % Lymphocytes % (Manual) Seg Neutrophils # Seg Neutrophils # Man Lymphocytes # (Manual) APTT D-Dimer ABG pH POC ABG pO2 ABG pO2 ABG HCO3 ABG O2 Saturation ABG Base Excess ABG Hemoglobin ABG Oxyhemoglobin ABG Glucose Oxyhemoglobin Sodium Chloride 107.3 H Carbon Dioxide BUN Creatinine Glucose POC Glucose Calcium 8.3 L Magnesium 2.40 H Ferritin AST Lactate Dehydrogenase C-Reactive Protein Total Protein Albumin Arterial Blood Glucose Arterial Blood Ionized Calcium Ur Specific [place] U Epithel Cells (Auto) Coronavirus (PCR) 04/13/21 04/15/21 04/15/21 06:54 07:13 07:13 WBC RBC Hgb Hct RDW 16.4 H Plt Count 123 L Lymph % (Auto) 4.6 L [place] % (Auto) 9.6 H Lymph # (Auto) 0.3 L [place] # (Auto) Baso # (Auto) Seg Neutrophils % 83.5 H Lymphocytes % (Manual) Seg Neutrophils # Seg Neutrophils # Man Lymphocytes # (Manual) APTT D-Dimer > 99845 H ABG pH POC ABG pO2 ABG pO2 ABG HCO3 ABG O2 Saturation ABG Base Excess ABG Hemoglobin ABG Oxyhemoglobin ABG Glucose Oxyhemoglobin Sodium Chloride Carbon Dioxide BUN Creatinine Glucose POC Glucose Calcium Magnesium Ferritin 1391.0 H AST Lactate Dehydrogenase C-Reactive Protein Total Protein Albumin Arterial Blood Glucose Arterial Blood Ionized Calcium Ur Specific [place] U Epithel Cells (Auto) Coronavirus (PCR) 04/15/21 04/15/21 04/15/21 07:13 07:13 11:35 WBC RBC Hgb Hct RDW Plt Count Lymph % (Auto) [place] % (Auto) Lymph # (Auto) [place] # (Auto) Baso # (Auto) Seg Neutrophils % Lymphocytes % (Manual) Seg Neutrophils # Seg Neutrophils # Man Lymphocytes # (Manual) APTT D-Dimer ABG pH POC ABG pO2 ABG pO2 53.9 L ABG HCO3 ABG O2 Saturation 88.1 L ABG Base Excess ABG Hemoglobin 12.6 L ABG Oxyhemoglobin ABG Glucose Oxyhemoglobin 86.9 L Sodium Chloride Carbon Dioxide BUN Creatinine Glucose POC Glucose Calcium Magnesium Ferritin AST Lactate Dehydrogenase 728 H C-Reactive Protein 15.20 H Total Protein Albumin Arterial Blood Glucose Arterial Blood Ionized Calcium Ur Specific [place] U Epithel Cells (Auto) Coronavirus (PCR) 04/15/21 04/15/21 04/16/21 13:07 15:15 03:27 WBC RBC Hgb Hct RDW Plt Count Lymph % (Auto) [place] % (Auto) Lymph # (Auto) [place] # (Auto) Baso # (Auto) Seg Neutrophils % Lymphocytes % (Manual) Seg Neutrophils # Seg Neutrophils # Man Lymphocytes # (Manual) APTT D-Dimer ABG pH 7.349 L POC ABG pO2 ABG pO2 68.7 L 73.3 L ABG HCO3 ABG O2 Saturation 92.2 L 94.0 L ABG Base Excess -2.4 L ABG Hemoglobin ABG Oxyhemoglobin ABG Glucose Oxyhemoglobin 90.9 L 92.8 L Sodium 136 L Chloride Carbon Dioxide 19 L BUN Creatinine 0.7 L Glucose 108 H POC Glucose Calcium Magnesium Ferritin AST Lactate Dehydrogenase C-Reactive Protein Total Protein Albumin Arterial Blood Glucose Arterial Blood Ionized Calcium Ur Specific [place] U Epithel Cells (Auto) Coronavirus (PCR) 04/16/21 04/16/21 04/16/21 07:19 07:47 10:13 WBC RBC 3.53 L Hgb 11.0 L Hct 32.4 L RDW 16.6 H Plt Count 97 L Lymph % (Auto) [place] % (Auto) Lymph # (Auto) [place] # (Auto) Baso # (Auto) Seg Neutrophils % Lymphocytes % (Manual) Seg Neutrophils # Seg Neutrophils # Man Lymphocytes # (Manual) APTT D-Dimer ABG pH POC ABG pO2 ABG pO2 ABG HCO3 ABG O2 Saturation ABG Base Excess ABG Hemoglobin ABG Oxyhemoglobin ABG Glucose Oxyhemoglobin Sodium Chloride Carbon Dioxide BUN Creatinine Glucose POC Glucose 108 H Calcium Magnesium Ferritin AST Lactate Dehydrogenase C-Reactive Protein Total Protein Albumin Arterial Blood Glucose Arterial Blood Ionized Calcium Ur Specific [place] 1.034 H U Epithel Cells (Auto) 91.0 H Coronavirus (PCR) 04/16/21 04/16/21 11:50 Unknown WBC RBC Hgb Hct RDW Plt Count Lymph % (Auto) [place] % (Auto) Lymph # (Auto) [place] # (Auto) Baso # (Auto) Seg Neutrophils % Lymphocytes % (Manual) Seg Neutrophils # Seg Neutrophils # Man Lymphocytes # (Manual) APTT D-Dimer ABG pH POC ABG pO2 ABG pO2 ABG HCO3 ABG O2 Saturation ABG Base Excess ABG Hemoglobin ABG Oxyhemoglobin ABG Glucose Oxyhemoglobin Sodium Chloride 107.8 H Carbon Dioxide BUN 21 H Creatinine 0.7 L Glucose 122 H POC Glucose 120 H Calcium 8.0 L Magnesium Ferritin AST Lactate Dehydrogenase C-Reactive Protein Total Protein 5.6 L Albumin 2.1 L Arterial Blood Glucose Arterial Blood Ionized Calcium Ur Specific [place] U Epithel Cells (Auto) Coronavirus (PCR) Chest x-ray: image reviewed Allied health notes reviewed: nursing
--- NOTE | 2021-04-16 15:37 | Procedure Note ---
Date of procedure: 04/16/21 Pre-op diagnosis: Hemodynamic monitoring Procedure: Arterial Line Placement Patient was evaluated and required arterial line placement for Hemodynanic monitoring due to high pressors requirement. Informed consent was obtained from patient's - Mishel Duncan A time-out was completed verifying correct patient, procedure, site, and positioning. Hand hygiene were performed immediately prior to the procedure and sterile technique was used throughout the procedure. After an Dimitri test was performed to ensure adequate perfusion, the vessel was identify using an ultrasound machine, the right wrist was then prepped using chlorhexidine scrub and draped in sterile fashion using a three quarter sheet drape. The radial artery was then again identified and the wrist was positioned in the usual fashion. Anesthesia was achieved using 1% lidocaine. Using the [employer] Radial Art erial Line Kit, a needle was inserted into the radial artery. Arterial blood was seen to pulsate in the flash chamber. The internal guidewire was advanced easily into the radial artery. The catheter was then advanced over the wire and the needle and wire were withdrawn. The catheter was then connected to the monitor technician and zeroed, appropriate waveform and blood pressure tracing was observed on the monitor. The catheter was sutured in place and a sterile dressing was placed over the catheter at the insertion site. The patient tolerated the procedure well and no complications noted Anesthesia: local Estimated blood loss: minimal Disposition: ICU
[2021-04-16] MEDS: fentaNYL DRIP Premix 2,000 MCG/100 ML BAG IV SCH ×2 (16:30→17:52)
[2021-04-16] MEDS: GABAPENTIN 300 MG CAP PO SCH (17:01)
[2021-04-16] MEDS: PANTOPRAZOLE 40 MG INJ IV SCH (17:05)
[2021-04-16] MEDS ORDERED: MIDAZOLAM 2 MG/2 ML INJ IV PRN (17:57)
[2021-04-16] MEDS ORDERED: NORepinephrine/NS 4 MG-250 ML 4 MG/250 ML BAG IV SCH (18:00)
--- NOTE | 2021-04-16 18:03 | XRay Report ---
CHEST 1 VIEW 04/16/2021 4:27 PM INDICATION / CLINICAL INFORMATION: COVID PNA. COMPARISON: 04/15/2021 FINDINGS: SUPPORT DEVICES: Stable, satisfactory device positioning. HEART / MEDIASTINUM: No significant abnormality. LUNGS / PLEURA: Redemonstrated multifocal airspace opacities. No pneumothorax. ADDITIONAL FINDINGS: No significant additional findings. IMPRESSION: 1. No significant change. Signer Name: Travon Pedroza DO Signed: 04/16/2021 5:58 PM Workstation Name: [facility]
--- NOTE | 2021-04-16 18:26 | Operative Report ---
DATE OF SURGERY: 04/15/2021 PULMONARY PROCEDURE NOTE PROCEDURE: Right internal jugular central venous line placement. INDICATIONS: Sepsis and hypotension in a patient on mechanical ventilation. CONSENT: Consent was informed and witnessed obtained from the patient's and witnessed by the nurse. COMPLICATIONS: No immediate procedural complications. DESCRIPTION OF PROCEDURE: After informed and witnessed consent as well as premedication, the patient being on the ventilator on a propofol and fentanyl drip, the area of the right upper anterior triangle of his neck was sterilely prepped and draped. This was an ultrasound-guided procedure. Earlier evaluation with the ultrasound scan had shown a patent, but very easily compressible right IJ. Strict sterile technique was used throughout the whole procedure to include sterile gloves, gowns, hat, mask and full barrier protection. Generous local anesthetic agent was used. After preparing the patient under ultrasound guidance, the right internal jugular vein was accessed on the first stick with the provided large bore central line needle. Good venous looking blood return was obtained. The patient was already in Trendelenburg position prior to the needle insertion. A wire was threaded through the needle and catheter was fed over the wire after dilation with the dilator provided. Catheter was sutured in place. The blood column was very low, suggesting a significant element of intravascular volume depletion. Postprocedure chest x-ray has confirmed adequate position and no pneumothorax and the nurse has been informed that he can use the central line. Central venous pressures will also be measured. TID: [id number] RECEIPT: [id number] BONITA/SEN/OUMAR FERNANDEZ
[2021-04-16 21:17] LABS: ABG Base Excess -1.2 mmol/L (-2.0-3.0); ABG HCO3 24.4 mmol/L (20.0-26.0); ABG Methemoglobin 0.1 % (0.0-1.5); ABG Oxygen Saturation 87.1 % (95.0-99.0); ABG PH 7.353 pH Units (7.350-7.450); ABG PO2 56.4 mm Hg (80.0-90.0)
[2021-04-16] MEDS: VASOPRESSIN 20 UNIT in SODIUM CHLORIDE 0.9% 100 ML IV SCH (21:44)
[2021-04-16] MEDS: PRAVASTATIN 40 MG TAB PO SCH (22:49)
[2021-04-17] MEDS: NORepinephrine/NS 8 MG-250 ML 8 MG/250 ML INFUS..BTL IV SCH ×5 (06:03→23:51)
[2021-04-17 06:59] LABS: Hematocrit 29.5 % (35.5-45.6); Mean Corpuscular HGB Conc 34 % (32-34); Mean Corpuscular Volume 91 fl (84-94); Red Blood Count 3.24 M/mm3 (3.65-5.03); Red Cell Distribution Width 17.1 % (13.2-15.2)
[2021-04-17 07:20] LABS: Blood Urea Nitrogen 25 mg/dL (9-20); Hemolysis Index 0
[2021-04-17 07:23] LABS: BUN/Creatinine Ratio 36
[2021-04-17 07:41] LABS: Platelet Count 77 K/mm3 (140-440)
[2021-04-17] MEDS: fentaNYL DRIP Premix 2,000 MCG/100 ML BAG IV SCH ×4 (08:33→19:53)
[2021-04-17] MEDS: MIDAZOLAM 100 MG in SODIUM CHLORIDE 0.9% 80 ML IV SCH ×2 (08:45→19:56)
[2021-04-17] MEDS: SENNOSIDES/DOCUSATE SODIUM 8.6/50 MG TAB FEEDTUBE SCH ×2 (09:32→21:57)
[2021-04-17] MEDS: FAMOTIDINE 20 MG/2 ML INJ IV SCH ×2 (09:32→22:02)
[2021-04-17] MEDS: ASPIRIN 81 MG TAB CHEW PO SCH (09:32)
--- NOTE | 2021-04-17 10:13 | XRay Report ---
CHEST 1 VIEW 04/17/2021 8:45 AM INDICATION / CLINICAL INFORMATION: Covid PNA. COMPARISON: Previous day. FINDINGS: SUPPORT DEVICES: Unchanged. HEART / MEDIASTINUM: Stable. LUNGS / PLEURA: Persistent diffuse bilateral opacity with mild worsening at the upper zones. No pneum othorax. ADDITIONAL FINDINGS: No significant additional findings. IMPRESSION: Mild worsening bilateral pneumonia. Signer Name: Mario iVllatoro MD Signed: 04/17/2021 10:09 AM Workstation Name: [id number]
[2021-04-17] MEDS: VASOPRESSIN 20 UNIT in SODIUM CHLORIDE 0.9% 100 ML IV SCH ×2 (10:33→19:45)
[2021-04-17] MEDS: ENOXAPARIN 40 MG/0.4 ML INJ SUB-Q SCH (10:57)
--- NOTE | 2021-04-17 12:16 | Progress Note ---
Assessment and Plan Patient is a 58 y/o male with a PMHx of HrEF (30-35%), CAD s/p PCI, ischemic cardiomyopathy, HTN Breakthrough COVID-19 PNA Sepsis Acute hypoxic respiratory failure * Patient received both doses of Pfizer vaccine. COVID PCR positive * Currently intubated, sedated, and on pressors * Pulmonology is following Nonsustained Vtach HFrEF CAD s/p PCI HTN * Placement of ICD has been discussed with patient in the office but patient refuses * Echo 08/01/2020- LV wall thickness is mildly increased. EF 30-35%, RV size is mildly dilated, The RV systolic function is normal, severely dilated left atrium, there is mild aortic regurgitation there is moderate mitral valve prolapse, posterior leaflet, there is mild mitral regurgitation. * Lexiscan MPI stress test 12/24/2019- Large fixed inferior defect, medium sized fixed inferior lateral defect findings suggestive of prior infarction in right coronary and left circumflex coronary arteries. No evidence of significant stress-induced ischemia * Echo 04/15/2021-EF 30 to 35%, right ventricular systolic function is normal, left and right atrium are normal in size, mild aortic regurgitation, mild mitral regurgitation, mild pulmonary hypertension Plan: Pressors have been restarted. Recommend weaning pressors as tolerated and continue dobutamine gtt. Will continue to follow Patient seen in conjunction with Dr. Vann who agrees with this plan. - Patient Problems (1) HFrEF (heart failure with reduced ejection fraction) Current Visit: Yes Status: Acute (2) CAD (coronary artery disease) Current Visit: Yes Status: Acute (3) Cardiomyopathy Current Visit: Yes Status: Acute (4) HTN (hypertension) Current Visit: Yes Status: Acute (5) Pneumonitis Current Visit: Yes Status: Acute (6) Suspected COVID-19 virus infection Current Visit: Yes Status: Acute Subjective Date of service: 04/17/21 Principal diagnosis: Acute hypoxemic resp failure; COVID-19 infxn; Pneumonia; CAD; HFrEF; HTN Interval history: Patient remains intubated and sedated. Sinus tach 110s on monitor Objective Vital Signs Temp Pulse Pulse Resp Resp BP Pulse Ox 04/17/21 11:58 99.7 F H 04/17/21 10:45 114 H 28 H 100/46 90 04/17/21 10:31 112 H 26 H 100/46 90 04/17/21 10:15 108 H 28 H 100/46 88 04/17/21 10:01 114 H 27 H 100/46 91 04/17/21 09:45 110 H 27 H 100/46 92 04/17/21 09:31 108 H 29 H 100/46 91 04/17/21 09:15 108 H 31 H 100/46 88 04/17/21 09:01 106 H 29 H 100/46 90 04/17/21 08:45 108 H 28 H 100/46 90 04/17/21 08:31 101 H 29 H 100/46 91 04/17/21 08:22 102 H 121/61 94 04/17/21 08:15 101 H 27 H 100/46 91 04/17/21 08:01 100 H 28 H 100/46 91 04/17/21 08:00 30 H 90 04/17/21 07:45 99 H 29 H 100/46 91 04/17/21 07:32 98.6 F 04/17/21 07:31 97 H 26 H 100/46 90 04/17/21 07:15 94 H 30 H 100/46 92 04/17/21 07:01 92 H 31 H 100/46 04/17/21 06:45 94 H 30 H 100/46 04/17/21 06:30 92 H 32 H 100/46 04/17/21 06:15 92 H 30 H 100/46 04/17/21 06:00 97 H 28 H 100/46 04/17/21 05:45 83 30 H 100/46 93 04/17/21 05:31 86 35 H 100/46 91 04/17/21 05:15 87 33 H 100/46 92 04/17/21 05:01 88 30 H 100/46 92 04/17/21 04:45 74 36 H 100/46 82 L 04/17/21 04:31 84 28 H 100/46 92 04/17/21 04:15 84 27 H 100/46 93 04/17/21 04:08 81 121/62 92 04/17/21 04:01 79 24 100/46 92 04/17/21 04:00 79 24 93 04/17/21 03:45 80 25 H 100/46 93 04/17/21 03:40 98.4 F 04/17/21 03:31 82 24 100/46 93 04/17/21 03:15 80 27 H 100/46 93 04/17/21 03:01 80 26 H 100/46 93 04/17/21 02:45 79 22 100/46 93 04/17/21 02:31 82 19 100/46 94 04/17/21 02:15 80 24 100/46 94 04/17/21 02:01 83 22 100/46 94 04/17/21 01:45 79 19 100/46 95 04/17/21 01:31 80 20 100/46 95 04/17/21 01:15 81 17 100/46 93 04/17/21 01:01 85 19 94 04/17/21 00:45 86 20 94 04/17/21 00:31 83 20 93 04/17/21 00:18 84 108/56 94 04/17/21 00:15 78 20 94 04/17/21 00:01 88 27 H 92 04/17/21 00:00 81 26 H 93 04/16/21 23:45 82 27 H 93 04/16/21 23:31 98.4 F 82 26 H 93 04/16/21 23:17 85 22 94 04/16/21 23:15 86 22 94 04/16/21 23:01 86 20 95 04/16/21 22:49 88 137/71 04/16/21 22:45 82 21 97 04/16/21 22:31 84 24 100 04/16/21 22:18 80 31 H 04/16/21 22:15 87 31 H 93 04/16/21 22:01 87 30 H 92 04/16/21 21:53 80 132/64 89 04/16/21 21:45 79 28 H 92 04/16/21 21:31 85 29 H 90 04/16/21 21:15 92 H 33 H 88 04/16/21 21:01 81 32 H 91 04/16/21 20:45 81 29 H 92 04/16/21 20:31 73 20 91 04/16/21 20:15 82 23 91 04/16/21 20:01 87 28 H 81 L 04/16/21 20:00 96.8 F L 66 21 92 04/16/21 19:46 82 21 87 04/16/21 19:31 79 21 110/53 95 04/16/21 19:15 85 27 H 110/53 96 04/16/21 19:01 89 30 H 110/53 95 04/16/21 17:33 98.1 F 04/16/21 17:01 69 17 110/53 92 04/16/21 16:51 63 18 110/53 92 04/16/21 16:41 58 L 17 110/53 95 04/16/21 16:31 63 25 H 110/53 98 04/16/21 16:21 87 25 H 110/53 97 04/16/21 16:11 72 25 H 110/53 96 04/16/21 16:01 58 L 19 110/53 99 04/16/21 16:00 25 H 93 04/16/21 15:51 59 L 25 H 110/53 100 04/16/21 15:41 58 L 25 H 103/49 100 04/16/21 15:30 69 25 H 110/53 93 04/16/21 15:21 66 25 H 101/55 100 04/16/21 15:11 60 25 H 103/58 100 04/16/21 15:00 61 25 H 103/58 100 04/16/21 14:51 59 L 25 H 101/59 100 04/16/21 14:40 60 25 H 128/70 100 04/16/21 14:30 60 25 H 99/58 100 04/16/21 14:21 60 25 H 95/59 100 04/16/21 14:11 62 25 H 96/56 99 04/16/21 14:00 61 25 H 96/56 99 04/16/21 13:51 62 25 H 93/55 98 04/16/21 13:41 64 25 H 93/56 98 04/16/21 13:30 63 25 H 93/56 98 04/16/21 13:21 64 25 H 93/53 98 04/16/21 13:11 65 25 H 101/50 98 04/16/21 13:01 64 25 H 101/50 98 04/16/21 12:51 66 25 H 128/70 99 04/16/21 12:41 56 L 25 H 128/70 100 04/16/21 12:30 55 L 25 H 128/70 100 04/16/21 12:21 54 L 25 H 128/69 100 - Physical Examination General: Other (intubated and sedated) HEENT: Positive: PERRL Neck: Positive: trachea midline Cardiac: Positive: Regular Rhythm, Tachycardia Lungs: Positive: Ventilated Respirations Neuro: Positive: Other (intubated and sedated) Abdomen: Positive: Soft, Active Bowel Sounds Skin: Negative: Rash, Suspicious Lesions, Ulceration Extremities: Present: upper extr. pulses, lower extr. pulses. Absent: edema - Labs and Meds CBC 04/17/21 Range/Units 05:15 WBC 7.9 (4.5-11.0) K/mm3 RBC 3.24 L (3.65-5.03) M/mm3 Hgb 10.0 L (11.8-15.2) gm/dl Hct 29.5 L (35.5-45.6) % Plt Count 77 L (140-440) K/mm3 Comprehensive Metabolic Panel 04/17/21 Range/Units 05:15 Sodium 139 (137-145) mmol/L Potassium 4.3 (3.6-5.0) mmol/L Chloride 106.8 (98-107) mmol/L Carbon Dioxide 24 (22-30) mmol/L BUN 25 H (9-20) mg/dL Creatinine 0.7 L (0.8-1.3) mg/dL Glucose 107 H (75-100) mg/dL Calcium 8.0 L (8.4-10.2) mg/dL - Imaging and Cardiology EKG: report reviewed, image reviewed Echo: report reviewed - Telemetry EKG Rhythm: Sinus Tachycardia - EKG Sinus rhythms and dysrhythmias: sinus tachycardia Ventricular dysrhythmias: ventricular premature com, non-sustained ventricular Chamber hypertrophy or enlargement: left ventricular hypertro - Allied health notes Allied health notes reviewed: nursing
--- NOTE | 2021-04-17 12:18 | Progress Note ---
Assessment and Plan Assessment and plan: 58-year-old male with past medical history of RA was on Leflunomide, hypertension, CAD s/p PCI, congestive heart failure, and UT 18 years ago presenting for complaint of shortness of breath was found to be positive for COVID. As of noted patient received both doses of Pfizer vaccine. Patient status decompensated since admit due to COVID PNA requiring intubation and sedation. Patient status remains guarded still in the ICU ongoing treatment for acute respiratory failure due to COVID PNA. Hospital Course to Date: 03/29/2021: Cardiology evaluated patient due to 5 beats NSVT. Increased coreg, continue entresto. Patient follows with Dr Martinez. ID evaluated patient, Remdesivir started. Will continue supportive care. 03/30/2021: Respiratory distress overnight. LIkely an allergic reaction to remdesivir. Remdesivir has since been discontinued. Was on BIPAP on encounter an d has since been dropped to 15 l/min salter nc. Continue supportive management. Will order inflammatory markers. 03/31/2021: Remains on salter nc 15l /min. sats 88-90% but in no distress. Continue supporitve management. Increased steroids to 60 q6hr. Obtained Pulmonology consult. CXR ordered, will follow. 04/01/2021: Remains on salter nc 12l /min. sats 88-90% but in no distress. Titrate down O2 requirements, ok with sats > 88%. Continue supporitve management. Lasix 20 mg IV x 1 ordered. 04/02/2021: Remains on salter nc 12l /min. Able to ambulate without any distress but does desaturate to 78%. Sats 88-90% when resting. Titrate down O2 requirements, ok with sats > 88%. Lasix 40 mg IV twice daily x 2 doses ordered. Continue supportive management 04/03/2021. Remains on salter nc but decreased from 12l /min to 8 L/min. Titrate down O2 requirements, ok with sats > 88%. Continue Lasix as needed 04/04/2021. Patient's oxygen was decreased to 10 L/min but was noted to have desaturation into the 70s. Therefore, patient was placed on 15 L with nonrebreather. Continue prone positioning as able. Patient has significantly elevated D-dimer. However, Doppler studies and CTA of chest were negative. Continue to trend D-dimer along with other inflammatory markers. Prognosis is guarded 04/05/2021. Patient sitting up in a chair and states that he feels comfortable. Patient previously on nonrebreather plus Salter nasal cannula 15 L FiO2 100% which has now been weaned to 8 L. Continue prone positioning as possible. Repeat D-dimer on 04/03 was still greater than 10,000 but CTA of chest and Doppler studies of lower extremities were negative. Recheck D-dimer in a.m. 04/06/2021. D-dimer is slightly decreased to ~8700. Patient remains on salter nasal cannula 8 L/min. Continue prone positioning as possible. Continue to trend inflammatory markers. 04/07/2021. Patient remains on salter nasal cannula 8 L/min. Continue prone positioning as possible. Continue to trend inflammatory markers. PT/OT. Exercise pulse oximetry testing at discharge. 04/08/2021. Patient remains on salter nasal cannula increased to 10 L/min. Continue prone positioning as possible. Continue to trend inflammatory markers. Continue IV Solu-Medrol per pulmonary recommendations. BG is stable. 04/09/2021. Patient remains on salter nasal cannula increased to 10 L/min. Continue prone positioning as possible. Continue to trend inflammatory markers. Continue IV Solu-Medrol per pulmonary recommendations. BG is stable. 04/10/2021 Patient with Covid-19 with acute resp failure . Still on Oxygen at 10 l/min. Continue current. Repeat labs in am. 04/11/2021 Patient with Covid-19 pneumonia with acute resp failure. Now on Oxygen at 6 l/min down from 10 l/min yesterday.. Pulm following. Likely dc home in few days. To obtain ambulatory pulse ox to determine need for Oxygen prior to discharge. 04/12/2021 Acute hypoxic respiratory failure due to Covid-19 pneumonia. On 11 L oxygen by nasal cannula. Has thrombocytopenia, no bleeding noted and will monitor. Nonsustained V. tach, on beta-anuja. Cardiology will be informed. Will check CBC, BMP and magnesium in the morning. 04/13/2021. Acute hypoxic respiratory failure. Was on 7 L oxygen by nasal cannula earlier this morning but has been increased to 11 L oxygen due to worsening hypoxia. Thrombocytopenia is unchanged, no bleeding reported. Hypermagnesemia has resolved. Had a low-grade fever with temperature of 100 and will continue monitoring, will do further work-up if it reoccurs. No indication for antibiotic at this time. 04/14/2021 Patient with Covid-19 pneumonia with acute resp failure. Now on oxygen at 15 l/min, non rebreather. 04/15/21 Patient with Covid-19 pneumonia with acute resp failure. This morning became worse with respiratory distress, so put on BIPAP. he was hypoxic, ABG shows hypoxemia. I discussed with Alexis Aj and he recommended transfer to ICU and Intubation by Anesthesiology. I discussed this with patient and at bedside. CXR shows worse pneumonia. 04/16/21 Patient with Covid-19 pneumonia with acute respiratory failure. Transferred to ICU and intubated yesterday, placed on ventilator because of worsening respiratory failure with hypoxia. He is hypotensive on pressors. Patient is critically ill. Prognosis guarded. He is a full code 04/17/21- Patient more hypotensive and tachycardic today, still on dobutamine gtt, on Max levo and Vaso, MAP in the 50s, robby was added to maintain MAP>65. Patient was hypoxic from this am ABG, with low SPO2, D/W CCM FiO2 increased to 90%. Orders placed for lactic acid, mixed venous, CRP, and Procal. Assessment and Plan #Neuro: Sedated - Patient is intubated and sedated, on propofol, fentanyl, and versed gtts - RASS goal -4 to -5 - Daily SAT and SBT assessment as tolerated - Maintenance of sleep-wake cycle - reduce the possibility of delirium #Acute Hypoxic Respiratory Failure 2/2 COVID PNA - 04/15 ETT. Vent setting PRVCs, 80%,,8,25,450 - This am ABG noted, persistent hypoxemia, SPO2 sustaining 88%, RR high 30s - Fio2 increased to 90%. For SPO2 goal 90 to 92% - [facility] consulted, appreciate recommendations - Continue VAP bundle - Daily SBT and SAT trials as tolerated - Daily ABG and CXR - Continue SPO2 monitoring #HFrEF (heart failure with reduced ejection fraction) #Nonsustained Vtach #H/o HTN; CAD S/p PCI - 08/01/2020 ECHO- LV wall thickness is mildly increased. EF 30-35%, RV size is mildly dilated, The RV systolic function is normal, severely dilated left atrium, there is mild aortic regurgitation there is moderate mitral valve prolapse, posterior leaflet, there is mild mitral regurgitation. - 04/15/2021 ECHO -EF 30 to 35%, right ventricular systolic function is normal, left and right atrium are normal in size, mild aortic regurgitation, mild mitral regurgitation, mild pulmonary hypertension - Cardiology on consult, appreciate recommendations - Patient was started on dobutamine gtt @2.5mcg - Patient remains on high dose pressors, Levo and Vaso - Robby added to maintain MAP 65 and above #GI: NPO #Transaminitis- improved - NGT in place, NPO for now due to high pressors requirement - Plan for enteral nutritional support once pressors are down - Continue PPI- Pepcid - Continue BR- senokot and Miralax #: NAP - Cooney inserted yesterday for Strict I&Os - Net +81ml in last 24hrs - continue strict I&Os - Close monitoring of renal function and electrolytes - avoid nephrotoxins, renally dose all medications #Elevated D-Dimer 2/2 to COVID #H/o Rheumatoid arthritis #Thrombocytopenia - Recent Ddimer>98902 - 03/28 CTA chest neg for PE - Currently too unstable for repeat CTA - 04/02 BLE doppler neg for DVT - 04/15 Repeat BLE doppler also neg for DVT - Continue VTE proph- Lovenox #ID:Sepsis #COVID PNA #H/o RA, immunocompromised host - 03/28 SARS CoV2 PCR: Positive - 03/28 blood culture: No growth - Breakthrough infection. Vaccinated against COVID-19 with Pfizer back in Aug 2020. - 03/28 CTA showed bilateral extensive pneumonitis - Attempted Remdesivir on admit stopped due to Allergic reaction after 1st dose - Patient was not a candidate for Actemra - Completed empiric abx course - 04/15 tracheal aspirate pending; 04/16 Urine cult pending - Patient now more Hypotensive, TMAX 98.6, WBCs 7.9 - D/W [facility]- orders placed for Lactic acid, mixed venous ordered, CRP, & procal - ID signed off #Endo:Hyperglycemia- improved - continue SSI Q6hrs - While critically ill target blood glucose of 140-180 - Avoid hypoglycemia The high probability of a clinically significant, sudden or life threatening deterioration of the [multiple] system(s) required my full and direct attention, intervention and personal management. The aggregate critical care time was [60] minutes. This time is in addition to time spent performing reported procedures but includes the following: [x] Data Review and interpretation [x] Patient assessment and monitoring of vital signs [x] Documentation [x] Medication orders and management Disposition Plan: ICU Total Time Spent with Patient (Minutes): 60 History Interval history: Patient seen and examined at the bedside. Remains intubated and sedated. More hypoxic this morning, increased in pressors requirement. Versed added this am due to tachypnea Hospitalist Physical - Constitutional Vitals: Temp Pulse Resp BP Pulse Ox 99.7 F H 114 H 28 H 100/46 90 04/17/21 11:58 04/17/21 10:45 04/17/21 10:45 04/17/21 10:45 04/17/21 10:45 General appearance: Present: mild distress - EENT Eyes: Present: PERRL - Respiratory Respiratory effort: labored, accessory muscle use Respiratory: bilateral: rales - Cardiovascular Rhythm: regular Heart Sounds: Present: S1 & S2 - Extremities Extremities: pulses intact, pulses symmetrical Extremity abnormal: edema - Peripheral Assessment Generalized Edema Type: Non-pitting Edema Degree: 1+ Capillary Refill: < 3 seconds Skin Temperature: Warm Peripheral Pulses: within normal limits - Abdominal General gastrointestinal: soft, non-tender, hypoactive bowel sounds - Integumentary Integumentary: Present: clear, warm, dry - Psychiatric Psychiatric: other (KRISSY, sedated) - Neurologic Neurologic: other (KRISSY, sedated) - Allied Health Allied health notes reviewed: nursing HEART Score - HEART Score Troponin: Troponin T 0.013 ng/mL (0.00-0.029) 04/15/21 07:13 Results - Labs CBC & Chem 7: 04/17/21 05:15 04/17/21 05:15 Labs: Laboratory Last Values WBC 7.9 K/mm3 (4.5-11.0) 04/17/21 05:15 RBC 3.24 M/mm3 (3.65-5.03) L 04/17/21 05:15 Hgb 10.0 gm/dl (11.8-15.2) L 04/17/21 05:15 Hct 29.5 % (35.5-45.6) L 04/17/21 05:15 MCV 91 fl (84-94) 04/17/21 05:15 MCH 31 pg (28-32) 04/17/21 05:15 MCHC 34 % (32-34) 04/17/21 05:15 RDW 17.1 % (13.2-15.2) H 04/17/21 05:15 Plt Count 77 K/mm3 (140-440) L 04/17/21 05:15 Lymph % (Auto) 4.6 % (13.4-35.0) L 04/13/21 06:54 [place] % (Auto) 9.6 % (0.0-7.3) H 04/13/21 06:54 Eos % (Auto) 1.7 % (0.0-4.3) 04/13/21 06:54 Baso % (Auto) 0.6 % (0.0-1.8) 04/13/21 06:54 Lymph # (Auto) 0.3 K/mm3 (1.2-5.4) L 04/13/21 06:54 [place] # (Auto) 0.6 K/mm3 (0.0-0.8) 04/13/21 06:54 Eos # (Auto) 0.1 K/mm3 (0.0-0.4) 04/13/21 06:54 Baso # (Auto) 0.0 K/mm3 (0.0-0.1) 04/13/21 06:54 Add Manual Diff Complete 04/06/21 05:03 Total Counted 100 04/06/21 05:03 Seg Neutrophils % 83.5 % (40.0-70.0) H 04/13/21 06:54 Band Neutrophils % 1.0 % 04/06/21 05:03 Lymphocytes % (Manual) 1.0 % (13.4-35.0) L 04/06/21 05:03 Monocytes % (Manual) 2.0 % (0.0-7.3) 04/06/21 05:03 Nucleated RBC % Not Reportable 04/06/21 05:03 Seg Neutrophils # 5.4 K/mm3 (1.8-7.7) 04/13/21 06:54 Seg Neutrophils # Man 11.2 K/mm3 (1.8-7.7) H 04/06/21 05:03 Band Neutrophils # 0.1 K/mm3 04/06/21 05:03 Lymphocytes # (Manual) 0.1 K/mm3 (1.2-5.4) L 04/06/21 05:03 Abs React Lymphs (Man) 0.0 K/mm3 04/06/21 05:03 Monocytes # (Manual) 0.2 K/mm3 (0.0-0.8) 04/06/21 05:03 Eosinophils # (Manual) 0.0 K/mm3 (0.0-0.4) 04/06/21 05:03 Basophils # (Manual) 0.0 K/mm3 (0.0-0.1) 04/06/21 05:03 Metamyelocytes # 0.0 K/mm3 04/06/21 05:03 Myelocytes # 0.0 K/mm3 04/06/21 05:03 Promyelocytes # 0.0 K/mm3 04/06/21 05:03 Blast Cells # 0.0 K/mm3 04/06/21 05:03 WBC Morphology Not Reportable 04/06/21 05:03 Hypersegmented Neuts Not Reportable 04/06/21 05:03 Hyposegmented Neuts Not Reportable 04/06/21 05:03 Hypogranular Neuts Not Reportable 04/06/21 05:03 Smudge Cells Not Reportable 04/06/21 05:03 Toxic Granulation Not Reportable 04/06/21 05:03 Toxic Vacuolation Not Reportable 04/06/21 05:03 Dohle Bodies Not Reportable 04/06/21 05:03 Pelger-Huet Anomaly Not Reportable 04/06/21 05:03 Adan Rods Not Reportable 04/06/21 05:03 Platelet Estimate Consistent w auto 04/06/21 05:03 Clumped Platelets Not Reportable 04/06/21 05:03 Plt Clumps, EDTA Not Reportable 04/06/21 05:03 Large Platelets Not Reportable 04/06/21 05:03 Giant Platelets Not Reportable 04/06/21 05:03 Platelet Satelliting Not Reportable 04/06/21 05:03 Plt Morphology Comment Not Reportable 04/06/21 05:03 RBC Morphology Not Reportable 04/06/21 05:03 Dimorphic RBCs Not Reportable 04/06/21 05:03 Polychromasia Not Reportable 04/06/21 05:03 Hypochromasia Not Reportable 04/06/21 05:03 Poikilocytosis 1+ 04/06/21 05:03 Anisocytosis Not Reportable 04/06/21 05:03 Microcytosis Not Reportable 04/06/21 05:03 Macrocytosis Not Reportable 04/06/21 05:03 Spherocytes Not Reportable 04/06/21 05:03 Pappenheimer Bodies Not Reportable 04/06/21 05:03 Sickle Cells Not Reportable 04/06/21 05:03 Target Cells Not Reportable 04/06/21 05:03 Tear Drop Cells Not Reportable 04/06/21 05:03 Ovalocytes Not Reportable 04/06/21 05:03 Helmet Cells Not Reportable 04/06/21 05:03 Madrigal-Suffern Bodies Not Reportable 04/06/21 05:03 [place] Rings Not Reportable 04/06/21 05:03 Tushar Cells Not Reportable 04/06/21 05:03 Bite Cells Not Reportable 04/06/21 05:03 Crenated Cell Not Reportable 04/06/21 05:03 Elliptocytes Not Reportable 04/06/21 05:03 Acanthocytes (Spur) Not Reportable 04/06/21 05:03 Rouleaux Not Reportable 04/06/21 05:03 Hemoglobin C Crystals Not Reportable 04/06/21 05:03 Schistocytes Not Reportable 04/06/21 05:03 Malaria parasites Not Reportable 04/06/21 05:03 Luke Bodies Not Reportable 04/06/21 05:03 Hem Pathologist Commnt No 04/06/21 05:03 PT 13.2 Sec. (12.2-14.9) 03/28/21 Unknown INR 0.95 (0.87-1.13) 03/28/21 Unknown APTT 38.7 Sec. (24.2-36.6) H 03/28/21 Unknown D-Dimer > 36646 ng/mlDDU (0-234) H 04/15/21 07:13 ABG pH 7.353 pH Units (7.350-7.450) 04/16/21 21:13 POC ABG pCO2 42.0 mmHg (32.0-48.0) 03/29/21 20:03 ABG pCO2 45.0 mm Hg 04/16/21 21:13 POC ABG pO2 51.4 mmHg (83-108) L 03/29/21 20:03 ABG pO2 56.4 mm Hg (80.0-90.0) L 04/16/21 21:13 POC ABG HCO3 18.6 03/29/21 20:03 ABG HCO3 24.4 mmol/L (20.0-26.0) 04/16/21 21:13 ABG O2 Saturation 87.1 % (95.0-99.0) L 04/16/21 21:13 ABG O2 Content 12.9 (0.0-44) 04/16/21 21:13 POC ABG Base Excess -8.0 03/29/21 20:03 ABG Base Excess -1.2 mmol/L (-2.0-3.0) 04/16/21 21:13 ABG Hemoglobin 10.7 gm/dl (14.0-18.0) L 04/16/21 21:13 ABG Oxyhemoglobin 77.6 (94-98) L 03/29/21 20:03 ABG Carboxyhemoglobin 1.1 % (0.0-5.0) 04/16/21 21:13 ABG Methemoglobin 0.1 % (0.0-1.5) 04/16/21 21:13 ABG Sodium 136.8 mmol/L (136.0-145.0) 03/29/21 20:03 ABG Potassium 4.0 mmol/L (3.40-4.50) 03/29/21 20:03 ABG Chloride 104.0 mmol/L (98-107) 03/29/21 20:03 ABG Glucose 275 mg/dL (65-95) H 03/29/21 20:03 Oxyhemoglobin 86.0 % (95.0-99.0) L 04/16/21 21:13 Carboxyhemoglobin 1.5 (0.5-1.5) 03/29/21 20:03 FiO2 70 % 04/16/21 21:13 FiO2 % 100.0 03/29/21 20:03 Sodium 139 mmol/L (137-145) 04/17/21 05:15 Potassium 4.3 mmol/L (3.6-5.0) 04/17/21 05:15 Chloride 106.8 mmol/L (98-107) 04/17/21 05:15 Carbon Dioxide 24 mmol/L (22-30) 04/17/21 05:15 Anion Gap 13 mmol/L 04/17/21 05:15 BUN 25 mg/dL (9-20) H 04/17/21 05:15 Creatinine 0.7 mg/dL (0.8-1.3) L 04/17/21 05:15 Estimated GFR > 60 ml/min 04/17/21 05:15 BUN/Creatinine Ratio 36 % 04/17/21 05:15 Glucose 107 mg/dL (75-100) H 04/17/21 05:15 POC Glucose 94 mg/dL (70-105) 04/17/21 11:28 Lactic Acid 1.60 mmol/L (0.7-2.0) 03/28/21 Unknown Calcium 8.0 mg/dL (8.4-10.2) L 04/17/21 05:15 Phosphorus 2.90 mg/dL (2.5-4.5) 04/14/21 23:41 Magnesium 2.20 mg/dL (1.7-2.3) 04/16/21 07:45 Ferritin 1391.0 ng/mL (30.0-300.0) H 04/15/21 07:13 Total Bilirubin 0.80 mg/dL (0.1-1.2) 04/16/21 Unknown AST 26 units/L (5-40) 04/16/21 Unknown ALT 25 units/L (7-56) 04/16/21 Unknown Alkaline Phosphatase 90 units/L (35-129) 04/16/21 Unknown Lactate Dehydrogenase 728 units/L (91-180) H 04/15/21 07:13 Troponin T 0.013 ng/mL (0.00-0.029) 04/15/21 07:13 C-Reactive Protein 15.20 mg/dL (0.00-1.30) H 04/15/21 07:13 Total Protein 5.6 g/dL (6.3-8.2) L 04/16/21 Unknown Albumin 2.1 g/dL (3.9-5) L 04/16/21 Unknown Albumin/Globulin Ratio 0.6 % 04/16/21 Unknown Triglycerides 111 mg/dL (2-149) 04/16/21 Unknown Procalcitonin 1.76 ng/mL (<0.15) 04/16/21 07:26 Arterial Blood Glucose 275 mg/dL (65-95) H 03/29/21 20:03 Arterial Blood Ionized Calcium 4.5 mg/dL (4.6-5.3) L 03/29/21 20:03 Urine Color Yellow (Yellow) 04/16/21 10:13 Urine Turbidity Turbid (Clear) 04/16/21 10:13 Urine pH 5.0 (5.0-7.0) 04/16/21 10:13 Ur Specific [place] 1.034 (1.003-1.030) H 04/16/21 10:13 Urine Protein 100 mg/dl mg/dL (Negative) 04/16/21 10:13 Urine Glucose (UA) 50 mg/dL (Negative) 04/16/21 10:13 Urine Ketones 20 mg/dL (Negative) 04/16/21 10:13 Urine Blood Mod (Negative) 04/16/21 10:13 Urine Nitrite Neg (Negative) 04/16/21 10:13 Urine Bilirubin Neg (Negative) 04/16/21 10:13 Urine Urobilinogen 4.0 mg/dL (<2.0) 04/16/21 10:13 Ur Leukocyte Esterase Neg (Negative) 04/16/21 10:13 Urine WBC (Auto) 6.0 /HPF (0.0-6.0) 04/16/21 10:13 Urine RBC (Auto) > 182.0 /HPF (0.0-6.0) 04/16/21 10:13 U Epithel Cells (Auto) 91.0 /HPF (0-13.0) H 04/16/21 10:13 Urine Bacteria (Auto) 4+ /HPF (Negative) 04/16/21 10:13 Urine Mucus 3+ /HPF 04/16/21 10:13 Ur Yeast w Hyphae 3+ /HPF 04/16/21 10:13 Coronavirus (PCR) Positive (Negative) A 03/28/21 Unknown Microbiology: Microbiology 04/15/21 Unknown Tracheal Aspirate Sputum Culture - Preliminary 04/16/21 10:13 Urine,Catheterized - Indwelling Catheter Urine Culture - Preliminary NO GROWTH AFTER 24 HOURS Cooney/IV: Voiding Method Indwelling Catheter Active Medications - Current Medications Current Medications: Generic Name Dose Route Start Last Admin Trade Name Freq PRN Reason Stop Dose Admin Acetaminophen 650 mg 03/28/21 12:45 Acetaminophen 325 Mg Tab PO Q4H PRN Pain MILD(1-3)/Fever >100.5/MIRANDA Albuterol 2.5 mg 04/08/21 11:23 Albuterol 2.5 Mg/3 Ml Nebu IH Q4H PRN Shortness of breath. Arformoterol Tartrate 15 mcg 04/08/21 20:00 04/16/21 22:18 Arformoterol 15 Mcg/2 Ml Nebu IH 15 mcg Q12HRT LISSETTE Administration Aspirin 81 mg 03/29/21 10:00 04/17/21 09:32 Aspirin 81 Mg Tab Chew PO 81 mg QDAY LISSETTE Administration Budesonide 0.5 mg 04/08/21 20:00 04/16/21 22:18 Budesonide 0.5 Mg/2 Ml Nebu IH 0.5 mg Q12HRT LISSETTE Administration Enoxaparin Sodium 40 mg 03/28/21 14:00 04/17/21 10:57 Enoxaparin 40 Mg/0.4 Ml Inj SUB-Q 40 mg DAILY [facility] Administration Protocol Famotidine 20 mg 04/15/21 22:00 04/17/21 09:32 Famotidine 20 Mg/2 Ml Inj IV 20 mg BID LISSETTE Administration Fentanyl 50 mcg 04/15/21 14:51 Fentanyl 100 Mcg/2 Ml Inj IV Q10MIN PRN ANALGESIA Gabapentin 300 mg 03/29/21 18:00 04/16/21 17:01 Gabapentin 300 Mg Cap PO Not Given QPM [facility] Hydrophilic Ointment 1 applic 04/15/21 15:08 Lip Therapy Vaseline TP Q2HR PRN Dry Lips Fentanyl Citrate 2,000 mcg in 100 mls @ 4.325 mls/hr 04/15/21 15:00 04/17/21 08:33 Fentanyl Drip Premix IV 4 mcg/kg/hr TITR LISSETTE 17.3 mls/hr Administration Protocol 1 MCG/KG/HR Propofol 1,000 mg in 100 mls @ 2.595 mls/hr 04/15/21 16:00 04/17/21 10:42 Diprivan 10 Mg/Ml IV 20 mcg/kg/min TITR LISSETTE 10.38 mls/hr Titration Protocol 5 MCG/KG/MIN Dobutamine HCl/Dextrose 500 mg in 250 mls @ 6.488 mls/hr 04/16/21 11:00 04/16/21 16:01 Dobutrex Drip 500mg/D5w 250ml IV 2.5 mcg/kg/min DIRECT LISSETTE 6.488 mls/hr Administration Protocol 2.5 MCG/KG/MIN NORepinephrine/NS 8 MG-250 ML 8 mg in 250 mls @ 3.75 mls/hr 04/16/21 18:00 04/17/21 06:03 Norepinephrine/Ns 8 Mg-250 Ml (Double Conc) IV 15 mcg/min TITRATE LISSETTE 28.125 mls/hr Administration Protocol 2 MCG/MIN Midazolam HCl 100 mg/ Sodium 100 mls @ 1 mls/hr 04/16/21 17:57 04/17/21 08:45 Chloride IV 1 mg/hr TITR LISSETTE 1 mls/hr Administration Protocol 1 MG/HR Vasopressin 20 unit/ Sodium 101 mls @ 9.09 mls/hr 04/16/21 21:00 04/17/21 10:33 Chloride IV 0.03 units/min TITR LISSETTE 9.09 mls/hr Administration Protocol 0.03 UNITS/MIN Phenylephrine HCl 100 mg/ 100 mls @ 3 mls/hr 04/17/21 12:30 Sodium Chloride IV TITR LISSETTE Protocol 50 MCG/MIN Labetalol HCl 10 mg 03/28/21 15:34 04/15/21 05:42 Labetalol 20 Mg/4 Ml Inj IV 10 mg Q6HR PRN Administration sbp > 160, hold for hr < 70 Midazolam HCl 2 mg 04/16/21 17:57 Midazolam 2 Mg/2 Ml Inj IV Q10MIN PRN Sedation Multi-Ingred Cream/Lotion/Oil/Oint 1 applic 04/15/21 15:08 Mineral Oil/Petrolatum, White Ophth Oint 3.5 Gm OU Q4HR PRN Dry Eye(s) Ondansetron HCl 4 mg 03/28/21 12:45 Ondansetron 4 Mg/2 Ml Inj IV Q8H PRN Nausea And Vomiting Oxycodone/Acetaminophen 1 tab 03/28/21 12:45 04/01/21 10:36 Oxycodone /Acetaminophen 5-325mg Tab PO 1 tab Q6H PRN Administration Pain, Moderate (4-6) Pravastatin Sodium 40 mg 03/29/21 22:00 04/16/21 22:49 Pravastatin 40 Mg Tab PO 40 mg QHS LISSETTE Administration Senna/Docusate Sodium 1 tab 04/15/21 22:00 04/17/21 09:32 Sennosides/Docusate Sodium 8.6/50 Mg Tab FEEDTUBE 1 tab BID LISSETTE Administration Sodium Chloride 10 ml 03/28/21 22:00 04/17/21 10:31 Sodium Chloride 0.9% 10 Ml Flush Syringe IV 10 ml BID LISSETTE Administration Sodium Chloride 10 ml 03/28/21 12:45 Sodium Chloride 0.9% 10 Ml Flush Syringe IV PRN PRN LINE FLUSH Nutrition/Malnutrition Assess - Dietary Evaluation Nutrition/Malnutrition Findings: Nutrition Notes Start: 03/29/21 14: 40 Freq: Status: Active Protocol: Document 04/10/21 12:13 JADEN (Rec: 04/10/21 12:41 JADEN [id number]) Nutrition Notes Need for Assessment generated from: non profit financial controller Initial or Follow up Reassessment Current Diagnosis Heart Failure Other Pertinent Diagnosis Pneumonia, possible assoc w/ COVID-19 Current Diet Cardiac Diet, since 03/28. Labs/Tests 04/06: CO2 31, BUN 22, Cr 0.7, Glu 145. Pertinent Medications 04/10: Reviewed. Height 5 ft 5 in Weight 86.5 kg Glennie Body Weight (kg) 61.81 BMI 31.7 Intake Prior to Admission Excellent Weight Status Obese Subjective/Other Information Pt reported lack of appetite and diarrhea upon admission, but since, has improved. Currently Pt with regular BM. Percent of energy/protein needs met: Prescribed Cardiac Diet provides with energy/protein needs during LOS (2230 Kcal/ 85 g). Burn Absent Trauma Absent GI Symptoms None Food Allergy No Skin Integrity/Comment Integumentary; clear,warm,dry. Current % PO Good (75-100%) Minimum of two criteria No physical signs of malnutrition #1 Nutrition Diagnosis No nutrition diagnosis at this time Comments: Pt reported increased appetite and tolerance of food; currently, 100% of meals intake. Diagnosis Progress(for reassessment Improved documentation) Is patient on ventilator? No Is Patient Ambulatory and/or Out of Bed Yes REE-([place]-ambulatory/OOB) [ 2030.444 [id number]] Kcal/Kg value to use for calculation 26 Approximate Energy Requirements Using 2249 kcal/Kg Calculation Used for Recommendations Kcal/kg Additional Notes Protein: 1.0-1.2 g/Kg/day; 62- 75 g/day; 248-300 Kcal/day ( from IBW). Fluids: 1.0 ml/kcal/day, or as per MD. Nutrition Intervention Change Diet Order: continue Cardiac Diet during LOS. Goal #1 Maintain body weight within +/ -3% of current BWt during LOS. Goal #2 Reach and maintain acceptable chemistry lab values during LOS. Follow-Up By: 04/17/21 Additional Comments Continue monitoring % of meals PO intake, acceptance of food , and BM.
[2021-04-17] MEDS: PHENYLEPHRINE 100 MG in SODIUM CHLORIDE 0.9% 90 ML IV SCH ×3 (13:45→21:14)
--- NOTE | 2021-04-17 14:37 | Progress Note ---
Assessment and Plan Acute hypoxemic respiratory failure COVID-19 virus infection Pneumonia due to COVID-19 virus CAD (coronary artery disease) HFrEF (heart failure with reduced ejection fraction) HTN - volume resuscitation (SvO2 41%) - empiric Cefepime and Vancomycin (re: Sepsis picture; increasing CRP/Procal) - get lactic acid level and address - begin stress dose steroids - add neosynephrine - HIV test - ID consult - get urine lytes - stopped Dobutrex per cardiology - wean Levophed for target MAP > 65 mmHg - too unstable for CTA chest acutely - continue care as below otherwise; - Daily SAT and SBT assessment as tolerated - continue to wean supplemental oxygen for target O2 sat's > 92% acutely - VAP bundle addressed - continue lung protective strategies - continue bronchodilators with pulmonary hygiene per RT - wean per pulmonary driven protocols otherwise - avoid nephrotoxins, renally dose all medications - continue accuchecks with glycemic control per SSI (While critically ill target blood glucose of 140-180 mg/dL; avoid hypoglycemia) - avoid benzodiazepine's, reduce the possibility of delirium - sedation for RASS 0 to -3 acutely - AB's per ID rec's - prn analgesia per CPOT score - Maintenance of sleep-wake cycle, avoid delirium - continue enteral nutritional support at goal rate as tolerated - G.I. & VTE prophylaxis - PT/OT/ROM exercises - continue mobility protocols for pressure ulcer prophylaxis - Monitor hemodynamics closely COVID SPECIFIC INTERVENTIONS - Remdesivir as per ID/Pulmonary developed protocols (Received) - continue systemic steroids for severe COVID-19 infection empirically (Solumedrol) - follow repeat COVID tests results - zinc and vitamin C supplementation - Monitor inflammatory markers per facility protocol - ferritin, Ddimer, CRP - therapeutic anticoagulation per system Protocol based on d-dimer and clinical considerations (VTE prophylaxis) - Continue contact and airborne isolation .... Re-evaluate in am & prn CONDITION: CRITICAL PROGNOSIS: GUARDED CODE STATUS: FULL CODE The high probability of a clinically significant, sudden or life-threatening deterioration of the [respiratory & cardiovascular] system(s) required my full and direct attention, intervention and personal management. The aggregate critical care time was [35] minutes without overlap. Time includes spent on; [x] Data Review and interpretation [x] Patient assessment and monitoring of vital signs [x] Documentation [x] Medication orders and management Subjective Date of service: 04/17/21 Principal diagnosis: Acute hypoxemic resp failure; COVID-19 infxn; Pneumonia; CAD; HFrEF; HTN Interval history: Patient is seen today for: Acute hypoxemic respiratory failure; COVID-19 virus infection; Pneumonia due to COVID-19 virus; CAD; HFrEF; HTN Seen and examined at bedside; 24hour events reviewed; nursing and respiratory care staff consulted; no adverse overnight events reported to me; resting in bed; remains on MVS; hypotensive and tachycardic today; now maxed out on Levophed and Vasop[ressin; h/o rh. Arthritis and immuno-suppressive treatment also noted; no emesis or overt aspiration Objective Vital Signs - 12hr 04/17/21 04/17/21 04/17/21 02:45 03:01 03:15 Temperature Pulse Rate 79 80 80 Respiratory 22 26 H 27 H Rate Blood Pressure 100/46 100/46 100/46 O2 Sat by Pulse 93 93 93 Oximetry 04/17/21 04/17/21 04/17/21 03:31 03:40 03:45 Temperature 98.4 F Pulse Rate 82 80 Respiratory 24 25 H Rate Blood Pressure 100/46 100/46 O2 Sat by Pulse 93 93 Oximetry 04/17/21 04/17/21 04/17/21 04:00 04:01 04:08 Temperature Pulse Rate 79 79 81 Respiratory 24 24 Rate Blood Pressure 100/46 121/62 O2 Sat by Pulse 93 92 92 Oximetry 04/17/21 04/17/21 04/17/21 04:15 04:31 04:45 Temperature Pulse Rate 84 84 74 Respiratory 27 H 28 H 36 H Rate Blood Pressure 100/46 100/46 100/46 O2 Sat by Pulse 93 92 82 L Oximetry 04/17/21 04/17/21 04/17/21 05:01 05:15 05:31 Temperature Pulse Rate 88 87 86 Respiratory 30 H 33 H 35 H Rate Blood Pressure 100/46 100/46 100/46 O2 Sat by Pulse 92 92 91 Oximetry 04/17/21 04/17/21 04/17/21 05:45 06:00 06:15 Temperature Pulse Rate 83 97 H 92 H Respiratory 30 H 28 H 30 H Rate Blood Pressure 100/46 100/46 100/46 O2 Sat by Pulse 93 Oximetry 04/17/21 04/17/21 04/17/21 06:30 06:45 07:01 Temperature Pulse Rate 92 H 94 H 92 H Respiratory 32 H 30 H 31 H Rate Blood Pressure 100/46 100/46 100/46 O2 Sat by Pulse Oximetry 04/17/21 04/17/21 04/17/21 07:15 07:31 07:32 Temperature 98.6 F Pulse Rate 94 H 97 H Respiratory 30 H 26 H Rate Blood Pressure 100/46 100/46 O2 Sat by Pulse 92 90 Oximetry 04/17/21 04/17/21 04/17/21 07:45 08:00 08:01 Temperature Pulse Rate 99 H 100 H Respiratory 29 H 30 H 28 H Rate Blood Pressure 100/46 100/46 O2 Sat by Pulse 91 90 91 Oximetry 04/17/21 04/17/21 04/17/21 08:15 08:22 08:31 Temperature Pulse Rate 101 H 102 H 101 H Respiratory 27 H 29 H Rate Blood Pressure 100/46 121/61 100/46 O2 Sat by Pulse 91 94 91 Oximetry 04/17/21 04/17/21 04/17/21 08:45 09:01 09:15 Temperature Pulse Rate 108 H 106 H 108 H Respiratory 28 H 29 H 31 H Rate Blood Pressure 100/46 100/46 100/46 O2 Sat by Pulse 90 90 88 Oximetry 04/17/21 04/17/21 04/17/21 09:31 09:45 10:01 Temperature Pulse Rate 108 H 110 H 114 H Respiratory 29 H 27 H 27 H Rate Blood Pressure 100/46 100/46 100/46 O2 Sat by Pulse 91 92 91 Oximetry 04/17/21 04/17/21 04/17/21 10:15 10:31 10:45 Temperature Pulse Rate 108 H 112 H 114 H Respiratory 28 H 26 H 28 H Rate Blood Pressure 100/46 100/46 100/46 O2 Sat by Pulse 88 90 90 Oximetry 04/17/21 04/17/21 11:58 12:26 Temperature 99.7 F H Pulse Rate 99 H Respiratory Rate Blood Pressure 122/63 O2 Sat by Pulse 93 Oximetry Constitutional: appears uncomfortable, other (elderly male with mildly increased respiratory effort at rest on MVS) Eyes: non-icteric ENT: oropharynx moist, other (ETT 24 cm BOLA) Neck: supple, no lymphadenopathy, no JVD Effort: mildly labored Ascultation: Bilateral: rales Percussion: Bilateral: not dull Cardiovascular: regular rate and rhythm Gastrointestinal: normoactive bowel sounds, soft, non-tender, non-distended (protuberant) Integumentary: normal Extremities: no cyanosis, no edema, pulses normal, no ischemia or petechiae Neurologic: non-focal exam (grossly), pupils equal and round, CN II-XII normal, other (sedated) Psychiatric: other (unable to assess re: AMS) CBC and BMP: 04/17/21 05:15 04/17/21 05:15 ABG, PT/INR, D-dimer: ABG ABG pH 7.411 (7.320-7.450) 04/17/21 11:32 POC ABG pCO2 37.0 mmHg (32.0-48.0) 04/17/21 11:32 ABG pCO2 45.0 mm Hg 04/16/21 21:13 POC ABG pO2 57.2 mmHg (83-108) L 04/17/21 11:32 ABG pO2 56.4 mm Hg (80.0-90.0) L 04/16/21 21:13 POC ABG HCO3 23 04/17/21 11:32 ABG O2 Saturation 89.1 (0-100) 04/17/21 11:32 PT/INR, D-dimer PT 13.2 Sec. (12.2-14.9) 03/28/21 Unknown INR 0.95 (0.87-1.13) 03/28/21 Unknown D-Dimer > 31026 ng/mlDDU (0-234) H 04/15/21 07:13 Abnormal lab findings: Abnormal Labs 03/28/21 03/28/21 03/28/21 08:26 09:25 09:25 WBC RBC Hgb Hct RDW Plt Count Lymph % (Auto) [place] % (Auto) Lymph # (Auto) [place] # (Auto) Baso # (Auto) Seg Neutrophils % Lymphocytes % (Manual) Seg Neutrophils # Seg Neutrophils # Man Lymphocytes # (Manual) APTT D-Dimer 1100.30 H ABG pH POC ABG pO2 ABG pO2 ABG HCO3 ABG O2 Saturation ABG Base Excess ABG Hemoglobin ABG Oxyhemoglobin ABG Sodium ABG Glucose Oxyhemoglobin Sodium Chloride Carbon Dioxide BUN Creatinine Glucose 109 H POC Glucose Calcium Magnesium 2.40 H Ferritin AST Lactate Dehydrogenase 677 H C-Reactive Protein 13.70 H Total Protein Albumin Arterial Blood Glucose Arterial Blood Ionized Calcium Ur Specific [place] U Epithel Cells (Auto) Coronavirus (PCR) 03/28/21 03/28/21 03/28/21 09:25 Unknown Unknown WBC RBC Hgb Hct RDW Plt Count 96 L Lymph % (Auto) 7.2 L [place] % (Auto) 10.8 H Lymph # (Auto) 0.5 L [place] # (Auto) Baso # (Auto) Seg Neutrophils % 81.8 H Lymphocytes % (Manual) Seg Neutrophils # Seg Neutrophils # Man Lymphocytes # (Manual) APTT D-Dimer ABG pH POC ABG pO2 ABG pO2 ABG HCO3 ABG O2 Saturation ABG Base Excess ABG Hemoglobin ABG Oxyhemoglobin ABG Sodium ABG Glucose Oxyhemoglobin Sodium Chloride Carbon Dioxide BUN Creatinine Glucose POC Glucose Calcium Magnesium Ferritin 1340.0 H AST Lactate Dehydrogenase C-Reactive Protein Total Protein Albumin Arterial Blood Glucose Arterial Blood Ionized Calcium Ur Specific [place] 1.038 H U Epithel Cells (Auto) Coronavirus (PCR) 03/28/21 03/28/21 03/28/21 Unknown Unknown Unknown WBC RBC Hgb Hct RDW Plt Count Lymph % (Auto) [place] % (Auto) Lymph # (Auto) [place] # (Auto) Baso # (Auto) Seg Neutrophils % Lymphocytes % (Manual) Seg Neutrophils # Seg Neutrophils # Man Lymphocytes # (Manual) APTT 38.7 H D-Dimer ABG pH POC ABG pO2 ABG pO2 ABG HCO3 ABG O2 Saturation ABG Base Excess ABG Hemoglobin ABG Oxyhemoglobin ABG Sodium ABG Glucose Oxyhemoglobin Sodium Chloride Carbon Dioxide BUN Creatinine Glucose 120 H POC Glucose Calcium Magnesium Ferritin AST 73 H Lactate Dehydrogenase C-Reactive Protein Total Protein Albumin 3.4 L Arterial Blood Glucose Arterial Blood Ionized Calcium Ur Specific [place] U Epithel Cells (Auto) Coronavirus (PCR) Positive A 03/29/21 03/29/21 03/29/21 02:30 02:30 02:30 WBC RBC Hgb Hct RDW 15.4 H Plt Count 107 L Lymph % (Auto) 5.6 L [place] % (Auto) 10.0 H Lymph # (Auto) 0.4 L [place] # (Auto) Baso # (Auto) Seg Neutrophils % 84.2 H Lymphocytes % (Manual) Seg Neutrophils # Seg Neutrophils # Man Lymphocytes # (Manual) APTT D-Dimer ABG pH POC ABG pO2 ABG pO2 ABG HCO3 ABG O2 Saturation ABG Base Excess ABG Hemoglobin ABG Oxyhemoglobin ABG Sodium ABG Glucose Oxyhemoglobin Sodium Chloride Carbon Dioxide BUN Creatinine Glucose 128 H POC Glucose Calcium Magnesium 2.60 H Ferritin AST 64 H Lactate Dehydrogenase C-Reactive Protein Total Protein Albumin 3.1 L Arterial Blood Glucose Arterial Blood Ionized Calcium Ur Specific [place] U Epithel Cells (Auto) Coronavirus (PCR) 03/29/21 03/29/21 03/29/21 15:30 19:48 20:03 WBC RBC Hgb Hct RDW Plt Count Lymph % (Auto) [place] % (Auto) Lymph # (Auto) [place] # (Auto) Baso # (Auto) Seg Neutrophils % Lymphocytes % (Manual) Seg Neutrophils # Seg Neutrophils # Man Lymphocytes # (Manual) APTT D-Dimer ABG pH 7.264 L POC ABG pO2 51.4 L ABG pO2 ABG HCO3 ABG O2 Saturation ABG Base Excess ABG Hemoglobin ABG Oxyhemoglobin 77.6 L ABG Sodium ABG Glucose 275 H Oxyhemoglobin Sodium Chloride Carbon Dioxide 21 L BUN Creatinine Glucose 125 H POC Glucose 189 H Calcium Magnesium Ferritin AST 64 H Lactate Dehydrogenase C-Reactive Protein Total Protein Albumin 2.8 L Arterial Blood Glucose 275 H Arterial Blood Ionized Calcium 4.5 L Ur Specific [place] U Epithel Cells (Auto) Coronavirus (PCR) 03/30/21 03/31/21 03/31/21 06:07 07:38 07:38 WBC 11.8 H RBC Hgb Hct RDW 15.4 H Plt Count Lymph % (Auto) 2.4 L [place] % (Auto) 8.4 H Lymph # (Auto) 0.3 L [place] # (Auto) 1.0 H Baso # (Auto) Seg Neutrophils % 89.0 H Lymphocytes % (Manual) Seg Neutrophils # 10.5 H Seg Neutrophils # Man Lymphocytes # (Manual) APTT D-Dimer > 77822 H ABG pH POC ABG pO2 ABG pO2 ABG HCO3 ABG O2 Saturation ABG Base Excess ABG Hemoglobin ABG Oxyhemoglobin ABG Sodium ABG Glucose Oxyhemoglobin Sodium Chloride Carbon Dioxide BUN Creatinine Glucose 131 H POC Glucose Calcium Magnesium Ferritin AST 49 H Lactate Dehydrogenase C-Reactive Protein Total Protein Albumin 2.7 L Arterial Blood Glucose Arterial Blood Ionized Calcium Ur Specific [place] U Epithel Cells (Auto) Coronavirus (PCR) 03/31/21 03/31/21 04/01/21 07:38 07:38 06:37 WBC RBC Hgb Hct RDW Plt Count Lymph % (Auto) [place] % (Auto) Lymph # (Auto) [place] # (Auto) Baso # (Auto) Seg Neutrophils % Lymphocytes % (Manual) Seg Neutrophils # Seg Neutrophils # Man Lymphocytes # (Manual) APTT D-Dimer ABG pH POC ABG pO2 ABG pO2 ABG HCO3 ABG O2 Saturation ABG Base Excess ABG Hemoglobin ABG Oxyhemoglobin ABG Sodium ABG Glucose Oxyhemoglobin Sodium Chloride Carbon Dioxide BUN Creatinine 0.7 L 0.7 L Glucose 122 H 117 H POC Glucose Calcium Magnesium Ferritin 1419.0 H AST 42 H 53 H Lactate Dehydrogenase 752 H C-Reactive Protein 4.40 H Total Protein Albumin 2.9 L 3.2 L Arterial Blood Glucose Arterial Blood Ionized Calcium Ur Specific [place] U Epithel Cells (Auto) Coronavirus (PCR) 04/02/21 04/02/21 04/02/21 05:57 05:57 05:57 WBC 13.6 H RBC Hgb Hct RDW 15.7 H Plt Count Lymph % (Auto) 2.3 L [place] % (Auto) 10.5 H Lymph # (Auto) 0.3 L [place] # (Auto) 1.4 H Baso # (Auto) 0.2 H Seg Neutrophils % 86.0 H Lymphocytes % (Manual) Seg Neutrophils # 11.7 H Seg Neutrophils # Man Lymphocytes # (Manual) APTT D-Dimer > 77761 H ABG pH POC ABG pO2 ABG pO2 ABG HCO3 ABG O2 Saturation ABG Base Excess ABG Hemoglobin ABG Oxyhemoglobin ABG Sodium ABG Glucose Oxyhemoglobin Sodium Chloride Carbon Dioxide BUN 22 H Creatinine 0.7 L Glucose 149 H POC Glucose Calcium Magnesium Ferritin AST 42 H Lactate Dehydrogenase 811 H C-Reactive Protein 2.00 H Total Protein Albumin 3.0 L Arterial Blood Glucose Arterial Blood Ionized Calcium Ur Specific [place] U Epithel Cells (Auto) Coronavirus (PCR) 04/02/21 04/02/21 04/03/21 05:57 21:00 05:56 WBC RBC Hgb Hct RDW Plt Count Lymph % (Auto) [place] % (Auto) Lymph # (Auto) [place] # (Auto) Baso # (Auto) Seg Neutrophils % Lymphocytes % (Manual) Seg Neutrophils # Seg Neutrophils # Man Lymphocytes # (Manual) APTT D-Dimer > 70286 H ABG pH POC ABG pO2 ABG pO2 ABG HCO3 ABG O2 Saturation ABG Base Excess ABG Hemoglobin ABG Oxyhemoglobin ABG Sodium ABG Glucose Oxyhemoglobin Sodium Chloride Carbon Dioxide BUN Creatinine Glucose POC Glucose 160 H Calcium Magnesium Ferritin 1180.0 H AST Lactate Dehydrogenase C-Reactive Protein Total Protein Albumin Arterial Blood Glucose Arterial Blood Ionized Calcium Ur Specific [place] U Epithel Cells (Auto) Coronavirus (PCR) 04/03/21 04/06/21 04/06/21 05:56 05:03 05:03 WBC 11.7 H RBC Hgb Hct RDW 15.6 H Plt Count Lymph % (Auto) [place] % (Auto) Lymph # (Auto) [place] # (Auto) Baso # (Auto) Seg Neutrophils % Lymphocytes % (Manual) 1.0 L Seg Neutrophils # Seg Neutrophils # Man 11.2 H Lymphocytes # (Manual) 0.1 L APTT D-Dimer 8753.33 H ABG pH POC ABG pO2 ABG pO2 ABG HCO3 ABG O2 Saturation ABG Base Excess ABG Hemoglobin ABG Oxyhemoglobin ABG Sodium ABG Glucose Oxyhemoglobin Sodium Chloride Carbon Dioxide BUN Creatinine Glucose POC Glucose Calcium Magnesium Ferritin 1117.0 H AST Lactate Dehydrogenase C-Reactive Protein Total Protein Albumin Arterial Blood Glucose Arterial Blood Ionized Calcium Ur Specific [place] U Epithel Cells (Auto) Coronavirus (PCR) 04/06/21 04/06/21 04/10/21 05:03 11:40 02:30 WBC RBC Hgb Hct RDW Plt Count Lymph % (Auto) [place] % (Auto) Lymph # (Auto) [place] # (Auto) Baso # (Auto) Seg Neutrophils % Lymphocytes % (Manual) Seg Neutrophils # Seg Neutrophils # Man Lymphocytes # (Manual) APTT D-Dimer ABG pH 7.455 H POC ABG pO2 ABG pO2 69.0 L ABG HCO3 27.0 H ABG O2 Saturation 93.7 L ABG Base Excess ABG Hemoglobin 13.8 L ABG Oxyhemoglobin ABG Sodium ABG Glucose Oxyhemoglobin 93.3 L Sodium Chloride Carbon Dioxide 31 H BUN 22 H Creatinine 0.7 L Glucose 145 H POC Glucose Calcium Magnesium 2.50 H Ferritin AST Lactate Dehydrogenase C-Reactive Protein Total Protein Albumin Arterial Blood Glucose Arterial Blood Ionized Calcium Ur Specific [place] U Epithel Cells (Auto) Coronavirus (PCR) 04/11/21 04/11/21 04/12/21 05:47 05:47 18:07 WBC RBC Hgb Hct RDW 16.1 H Plt Count 123 L Lymph % (Auto) [place] % (Auto) Lymph # (Auto) [place] # (Auto) Baso # (Auto) Seg Neutrophils % Lymphocytes % (Manual) Seg Neutrophils # Seg Neutrophils # Man Lymphocytes # (Manual) APTT D-Dimer ABG pH POC ABG pO2 ABG pO2 ABG HCO3 ABG O2 Saturation ABG Base Excess ABG Hemoglobin ABG Oxyhemoglobin ABG Sodium ABG Glucose Oxyhemoglobin Sodium Chloride 107.3 H Carbon Dioxide BUN Creatinine Glucose POC Glucose Calcium 8.3 L Magnesium 2.40 H Ferritin AST Lactate Dehydrogenase C-Reactive Protein Total Protein Albumin Arterial Blood Glucose Arterial Blood Ionized Calcium Ur Specific [place] U Epithel Cells (Auto) Coronavirus (PCR) 04/13/21 04/15/21 04/15/21 06:54 07:13 07:13 WBC RBC Hgb Hct RDW 16.4 H Plt Count 123 L Lymph % (Auto) 4.6 L [place] % (Auto) 9.6 H Lymph # (Auto) 0.3 L [place] # (Auto) Baso # (Auto) Seg Neutrophils % 83.5 H Lymphocytes % (Manual) Seg Neutrophils # Seg Neutrophils # Man Lymphocytes # (Manual) APTT D-Dimer > 04970 H ABG pH POC ABG pO2 ABG pO2 ABG HCO3 ABG O2 Saturation ABG Base Excess ABG Hemoglobin ABG Oxyhemoglobin ABG Sodium ABG Glucose Oxyhemoglobin Sodium Chloride Carbon Dioxide BUN Creatinine Glucose POC Glucose Calcium Magnesium Ferritin 1391.0 H AST Lactate Dehydrogenase C-Reactive Protein Total Protein Albumin Arterial Blood Glucose Arterial Blood Ionized Calcium Ur Specific [place] U Epithel Cells (Auto) Coronavirus (PCR) 04/15/21 04/15/21 04/15/21 07:13 07:13 11:35 WBC RBC Hgb Hct RDW Plt Count Lymph % (Auto) [place] % (Auto) Lymph # (Auto) [place] # (Auto) Baso # (Auto) Seg Neutrophils % Lymphocytes % (Manual) Seg Neutrophils # Seg Neutrophils # Man Lymphocytes # (Manual) APTT D-Dimer ABG pH POC ABG pO2 ABG pO2 53.9 L ABG HCO3 ABG O2 Saturation 88.1 L ABG Base Excess ABG Hemoglobin 12.6 L ABG Oxyhemoglobin ABG Sodium ABG Glucose Oxyhemoglobin 86.9 L Sodium Chloride Carbon Dioxide BUN Creatinine Glucose POC Glucose Calcium Magnesium Ferritin AST Lactate Dehydrogenase 728 H C-Reactive Protein 15.20 H Total Protein Albumin Arterial Blood Glucose Arterial Blood Ionized Calcium Ur Specific [place] U Epithel Cells (Auto) Coronavirus (PCR) 04/15/21 04/15/21 04/16/21 13:07 15:15 03:27 WBC RBC Hgb Hct RDW Plt Count Lymph % (Auto) [place] % (Auto) Lymph # (Auto) [place] # (Auto) Baso # (Auto) Seg Neutrophils % Lymphocytes % (Manual) Seg Neutrophils # Seg Neutrophils # Man Lymphocytes # (Manual) APTT D-Dimer ABG pH 7.349 L POC ABG pO2 ABG pO2 68.7 L 73.3 L ABG HCO3 ABG O2 Saturation 92.2 L 94.0 L ABG Base Excess -2.4 L ABG Hemoglobin ABG Oxyhemoglobin ABG Sodium ABG Glucose Oxyhemoglobin 90.9 L 92.8 L Sodium 136 L Chloride Carbon Dioxide 19 L BUN Creatinine 0.7 L Glucose 108 H POC Glucose Calcium Magnesium Ferritin AST Lactate Dehydrogenase C-Reactive Protein Total Protein Albumin Arterial Blood Glucose Arterial Blood Ionized Calcium Ur Specific [place] U Epithel Cells (Auto) Coronavirus (PCR) 04/16/21 04/16/21 04/16/21 07:19 07:47 10:13 WBC RBC 3.53 L Hgb 11.0 L Hct 32.4 L RDW 16.6 H Plt Count 97 L Lymph % (Auto) [place] % (Auto) Lymph # (Auto) [place] # (Auto) Baso # (Auto) Seg Neutrophils % Lymphocytes % (Manual) Seg Neutrophils # Seg Neutrophils # Man Lymphocytes # (Manual) APTT D-Dimer ABG pH POC ABG pO2 ABG pO2 ABG HCO3 ABG O2 Saturation ABG Base Excess ABG Hemoglobin ABG Oxyhemoglobin ABG Sodium ABG Glucose Oxyhemoglobin Sodium Chloride Carbon Dioxide BUN Creatinine Glucose POC Glucose 108 H Calcium Magnesium Ferritin AST Lactate Dehydrogenase C-Reactive Protein Total Protein Albumin Arterial Blood Glucose Arterial Blood Ionized Calcium Ur Specific [place] 1.034 H U Epithel Cells (Auto) 91.0 H Coronavirus (PCR) 04/16/21 04/16/21 04/16/21 11:50 21:13 23:19 WBC RBC Hgb Hct RDW Plt Count Lymph % (Auto) [place] % (Auto) Lymph # (Auto) [place] # (Auto) Baso # (Auto) Seg Neutrophils % Lymphocytes % (Manual) Seg Neutrophils # Seg Neutrophils # Man Lymphocytes # (Manual) APTT D-Dimer ABG pH POC ABG pO2 ABG pO2 56.4 L ABG HCO3 ABG O2 Saturation 87.1 L ABG Base Excess ABG Hemoglobin 10.7 L ABG Oxyhemoglobin ABG Sodium ABG Glucose Oxyhemoglobin 86.0 L Sodium Chloride Carbon Dioxide BUN Creatinine Glucose POC Glucose 120 H 111 H Calcium Magnesium Ferritin AST Lactate Dehydrogenase C-Reactive Protein Total Protein Albumin Arterial Blood Glucose Arterial Blood Ionized Calcium Ur Specific [place] U Epithel Cells (Auto) Coronavirus (PCR) 04/16/21 04/17/21 04/17/21 Unknown 05:15 05:15 WBC RBC 3.24 L Hgb 10.0 L Hct 29.5 L RDW 17.1 H Plt Count 77 L Lymph % (Auto) [place] % (Auto) Lymph # (Auto) [place] # (Auto) Baso # (Auto) Seg Neutrophils % Lymphocytes % (Manual) Seg Neutrophils # Seg Neutrophils # Man Lymphocytes # (Manual) APTT D-Dimer ABG pH POC ABG pO2 ABG pO2 ABG HCO3 ABG O2 Saturation ABG Base Excess ABG Hemoglobin ABG Oxyhemoglobin ABG Sodium ABG Glucose Oxyhemoglobin Sodium Chloride 107.8 H Carbon Dioxide BUN 21 H 25 H Creatinine 0.7 L 0.7 L Glucose 122 H 107 H POC Glucose Calcium 8.0 L 8.0 L Magnesium Ferritin AST Lactate Dehydrogenase C-Reactive Protein Total Protein 5.6 L Albumin 2.1 L Arterial Blood Glucose Arterial Blood Ionized Calcium Ur Specific [place] U Epithel Cells (Auto) Coronavirus (PCR) 04/17/21 11:32 WBC RBC Hgb Hct RDW Plt Count Lymph % (Auto) [place] % (Auto) Lymph # (Auto) [place] # (Auto) Baso # (Auto) Seg Neutrophils % Lymphocytes % (Manual) Seg Neutrophils # Seg Neutrophils # Man Lymphocytes # (Manual) APTT D-Dimer ABG pH POC ABG pO2 57.2 L ABG pO2 ABG HCO3 ABG O2 Saturation ABG Base Excess ABG Hemoglobin 9.4 L ABG Oxyhemoglobin 87.9 L ABG Sodium 135.1 L ABG Glucose 99 H Oxyhemoglobin Sodium Chloride Carbon Dioxide BUN Creatinine Glucose POC Glucose Calcium Magnesium Ferritin AST Lactate Dehydrogenase C-Reactive Protein Total Protein Albumin Arterial Blood Glucose 99 H Arterial Blood Ionized Calcium Ur Specific [place] U Epithel Cells (Auto) Coronavirus (PCR) Chest x-ray: image reviewed (p[ersistent bilateral infiltrates) Allied health notes reviewed: nursing
[2021-04-17] MEDS ORDERED: SODIUM CHLORIDE 0.9% 1000 ML 1,000 ML IV ONE (14:56)
[2021-04-17] MEDS: DOPamine/D5W 800 MG/250 ML 800 MG/250 ML BAG IV SCH ×2 (15:00→21:32)
[2021-04-17] MEDS ORDERED: SODIUM CHLORIDE 0.9% 1000 ML 1,000 ML IV SCH (15:00)
[2021-04-17] MEDS ORDERED: EPINEPHrine 1 MG/10 ML SYRINGE ONE ×2 (15:01→22:12)
[2021-04-17] MEDS ORDERED: ALBUMIN HUMAN 25% (25 GM/100 ML) INJ IV ONE (15:01)
--- NOTE | 2021-04-17 15:10 | Event Note ---
Date: 04/17/21 Decompensated rapidly hypoxemic Hypotensive on 5 vasopressors O2 sats in 50's on 100% FiO2 and peep of 12 no acute tension PTX or other pathology on CXR too unstable to go for CTA chest stat 2D ECHO compared to one from 48 hours earlier reveals new RV strain A&P: -Suspect Acute Massive P.E. -discussed risk benefits with including his non-life sustainable hemodynamic decompensation -Will give tpA over 2 hours - IV Heparin drip
[2021-04-17] MEDS ORDERED: HEPARIN 10,000 UNITS/10 ML VIAL IV PRN ×2 (15:24→15:46)
[2021-04-17] MEDS ORDERED: SODIUM BICARB 8.4% 50 MEQ/50 ML SYRINGE IV NR (15:30)
--- NOTE | 2021-04-17 15:43 | XRay Report ---
CHEST 1 VIEW INDICATION / CLINICAL INFORMATION: Hypoxia. COMPARISON: Earlier same day FINDINGS: SUPPORT DEVICES: Unchanged. HEART / MEDIASTINUM: Stable. LUNGS / PLEURA: No significant interval change in diffuse bilateral airspace disease. No pneumothorax . ADDITIONAL FINDINGS: No significant additional findings. IMPRESSION: 1. No significant change. Signer Name: Pierce Kumar MD Signed: 04/17/2021 3:39 PM Workstation Name: [id number]
[2021-04-17] MEDS ORDERED: ALTEPLASE 100 MG INJ KIT IV ONE (16:00)
[2021-04-17] MEDS ORDERED: EPINEPHrine 1 MG/1 ML 16 MG in SODIUM CHLORIDE 0.9% 250ML 234 ML IV SCH (16:00)
[2021-04-17] MEDS ORDERED: HEPARIN 10,000 UNITS/10 ML VIAL IV ONE (16:00)
[2021-04-17] MEDS ORDERED: HEPARIN/ 0.45% NACL DRIP 25,000 UNIT/500 ML BAG IV SCH (16:00)
[2021-04-17] MEDS ORDERED: SODIUM CHLORIDE 0.9% 250 ML IVPB IV ONE (16:00)
[2021-04-17 17:45] LABS: Albumin 1.9 g/dL (3.9-5); BUN/Creatinine Ratio 21; Blood Urea Nitrogen 27 mg/dL (9-20); Calcium 6.9 mg/dL (8.4-10.2); Hemolysis Index 6
[2021-04-17] MEDS: HYDROCORTISONE SOD SUCC 100 MG/2 ML VIAL IV SCH ×2 (17:54→22:02)
[2021-04-17] MEDS: CEFEPIME/NS 1 GM/100 ML 1 GM/100 ML BAG IV SCH ×2 (17:54→22:01)
[2021-04-17] MEDS: VANCOMYCIN 1,250 MG in SODIUM CHLORIDE 0.9% 250ML 250 ML IV SCH (17:54)
[2021-04-17] MEDS ORDERED: ROCURONIUM 50 MG/5 ML INJ IV ONE (18:00)
[2021-04-17] MEDS ORDERED: DEXTROSE 50% IN WATER (25GM) 50 ML SYRINGE IV ONE (18:06)
[2021-04-17] MEDS ORDERED: DEXTROSE 50% IN WATER (25GM) 50 ML SYRINGE IV PRN (18:08)
[2021-04-17 18:21] LABS: Alanine Aminotransferase 2248 units/L (7-56)
[2021-04-17] MEDS: GABAPENTIN 300 MG CAP PO SCH (19:21)
[2021-04-17] MEDS: VANCOMYCIN/NS 1 GM/250 ML 1 GM/250 ML BAG IV SCH ×2 (19:26→20:37)
--- NOTE | 2021-04-17 20:31 | Event Note ---
Date: 04/17/21 MACARIO MARY was called. I presented to the bedside the patient was found to be in asystolic arrest. Patient treated" with ACLS protocol with eventual return of perfusing cardiac rhythm. 60 minutes bedside critical care time dedicated to patient. Care.
[2021-04-17 20:55] LABS: Creatinine,Urine 193.1 mg/dL (0.1-20.0)
[2021-04-17] MEDS ORDERED: SODIUM BICARB 8.4% 50 MEQ/50 ML SYRINGE IV ONE ×2 (21:05→22:12)
[2021-04-17] MEDS: PRAVASTATIN 40 MG TAB PO SCH (21:57)
[2021-04-17] MEDS ORDERED: DEXTROSE 5% IN WATER 1,000 ML with SODIUM BICARBONATE 150 MEQ IV SCH (22:00)
[2021-04-17] MEDS ORDERED: DOPamine/D5W 800 MG/250 ML DRIP IV ONE (22:12)
[2021-04-17] MEDS ORDERED: ATROPINE 0.1% (1 MG/10 ML) CARDIAC SYRINGE ONE (22:12)
[2021-04-17 22:22] LABS: Hemoglobin 10.5 gm/dl (11.8-15.2); INR 3.68 (0.87-1.13); Mean Corpuscular HGB Conc 33 % (32-34); Mean Corpuscular Volume 94 fl (84-94); Red Blood Count 3.41 M/mm3 (3.65-5.03); Red Cell Distribution Width 17.3 % (13.2-15.2)
[2021-04-17 22:28] LABS: Platelet Count 58 K/mm3 (140-440)
[2021-04-17 22:29] LABS: Partial Thromboplastin Time 76.2 Sec. (24.2-36.6)
[2021-04-17 23:19] LABS: Band Neutrophils # (Manual) 0.1 K/mm3; Platelet Estimate Consistent w Auto; Schistocytes Few; Total Cells Counted 59
--- NOTE | 2021-04-18 00:36 | Event Note ---
Date: 04/17/21 MACARIO MARY called on 66-year-old -[place] male who is currently on admission for COVID-19 pneumonia who had gone into asystole. Resuscitative measures were commenced according to ACLS protocol. Patient had multiple rounds of epinephrine and sodium bicarb. Blood glucose was 105. Patient subsequently had spontaneous return of circulation. We will continue current management and monitor labs.
[2021-04-18] MEDS: PHENYLEPHRINE 100 MG in SODIUM CHLORIDE 0.9% 90 ML IV SCH ×2 (00:58→04:57)
[2021-04-18 02:53] VITALS: BP 73/47
[2021-04-18] MEDS: VANCOMYCIN 1,250 MG in SODIUM CHLORIDE 0.9% 250ML 250 ML IV SCH (04:00)
[2021-04-18] MEDS: NORepinephrine/NS 8 MG-250 ML 8 MG/250 ML INFUS..BTL IV SCH (04:19)
[2021-04-18 04:50] LABS: Hematocrit 31.4 % (35.5-45.6); Hemoglobin 9.6 gm/dl (11.8-15.2); Mean Corpuscular HGB Conc 31 % (32-34); Mean Corpuscular Volume 103 fl (84-94); Red Blood Count 3.05 M/mm3 (3.65-5.03); Red Cell Distribution Width 19.3 % (13.2-15.2)
[2021-04-18] MEDS ORDERED: SODIUM CHLORIDE 0.9% 1000 ML 1,000 ML ONE (05:12)
[2021-04-18] MEDS ORDERED: ATROPINE 0.1% (1 MG/10 ML) CARDIAC SYRINGE ONE (05:13)
[2021-04-18 05:17] LABS: Albumin 1.5 g/dL (3.9-5); Calcium 6.5 mg/dL (8.4-10.2)
[2021-04-18] MEDS: VASOPRESSIN 20 UNIT in SODIUM CHLORIDE 0.9% 100 ML IV SCH (05:20)
[2021-04-18] MEDS: DOPamine/D5W 800 MG/250 ML 800 MG/250 ML BAG IV SCH (05:24)
[2021-04-18 05:34] LABS: Platelet Count 15 K/mm3 (140-440)
[2021-04-18] MEDS ORDERED: EPINEPHrine 1 MG/10 ML SYRINGE ONE (05:37)
[2021-04-18] MEDS ORDERED: SODIUM BICARB 8.4% 50 MEQ/50 ML SYRINGE IV ONE (05:37)
[2021-04-18] MEDS ORDERED: CALCIUM CHLORIDE 1,000 MG/10 ML SYRINGE IV ONE (05:37)
[2021-04-18] MEDS ORDERED: DEXTROSE 50% IN WATER (25GM) 50 ML SYRINGE IV ONE (05:37)
[2021-04-18] MEDS ORDERED: INSULIN REGULAR, HUMAN 100 UNITS/1 ML ONE ×2 (05:41)
[2021-04-18] MEDS ORDERED: SODIUM POLYSTYRENE 15 GM/60 ML ORAL LIQD PO ONE (05:47)
--- NOTE | 2021-04-18 06:24 | Event Note ---
Date: 04/18/21 MACARIO MARY called on 66-year-old -[place] male who has been on admission for COVID-19 pneumonia. Resuscitative measures according to ACLS protocol was immediately commenced. Patient had multiple doses of epinephrine, sodium bicarb and calcium chloride without any response. Patient was subsequently pronounced at 5:53 AM April 18, 2021. Family immediately notified.
[2021-04-18] MEDS ORDERED: POLYETHYLENE GLYCOL 3350 17 GM POWDER PO SCH (10:00)
--- NOTE | 2021-04-18 10:58 | Death Summary ---
Summary - Providers Date of service: 04/18/21 Consults: 03/28/21 12:50 Consult to Physician [CONS] Routine Comment: Consulting Provider: MICHAEL TERRY Physician Instructions: Reason For Exam: suspected covid 19 infection 03/29/21 06:04 Consult to Physician [CONS] Routine Comment: Consulting Provider: DONTE GIBBS Physician Instructions: Reason For Exam: Arrhythmia 03/31/21 11:26 Consult to Physician [CONS] Routine Comment: Consulting Provider: WALE GAXIOLA Physician Instructions: Reason For Exam: covid pneumonia 04/15/21 07:24 Consult to Physician [CONS] Routine Comment: Consulting Provider: DONTE GIBBS Physician Instructions: Reason For Exam: Re-consult for 12 beats vtach 04/15/21 12:58 Consult to Anesthesiology [CONS] Urgent Consulting Provider: [employer] Reason For Exam: Intubation. Acute resp failure, Covid 04/15/21 15:08 Consult to Dietitian/Nutrition [CONS] Routine Physician Instructions: Reason For Exam: Reason for Consult: Write/Manage Tube Feeding 04/17/21 18:36 Consult to Physician [CONS] Routine Comment: called office/ oc Consulting Provider: DANYA BRANNON Physician Instructions: Reason For Exam: Sepsis, COVID PNA Attending: KADEN LOPES - summary Date of admission: 03/28/21 12:48 Date of : 04/18/21 Disposition: 58-year-old male with past medical history of RA was on Leflunomide, hypertension, CAD s/p PCI, congestive heart failure, and [place] 18 years ago presenting for complaint of shortness of breath was found to be positive for COVID. As of noted patient received both doses of Pfizer vaccine. Patient status decompensated since admit due to COVID PNA requiring intubation and sedation. Patient status remains guarded still in the ICU ongoing treatment for acute respiratory failure due to COVID PNA. Hospital Course to Date: 03/29/2021: Cardiology evaluated patient due to 5 beats NSVT. Increased coreg, continue entresto. Patient follows with Dr Gibbs. ID evaluated patient, Remdesivir started. Will continue supportive care. 03/30/2021: Respiratory distress overnight. LIkely an allergic reaction to remdesivir. Remdesivir has since been discontinued. Was on BIPAP on encounter and has since been dropped to 15 l/min salter nc. Continue supportive management. Will order inflammatory markers. 03/31/2021: Remains on salter nc 15l /min. sats 88-90% but in no distress. Continue supporitve management. Increased steroids to 60 q6hr. Obtained Pulmonology consult. CXR ordered, will follow. 04/01/2021: Remains on salter nc 12l /min. sats 88-90% but in no distress. Titrate down O2 requirements, ok with sats > 88%. Continue supporitve management. Lasix 20 mg IV x 1 ordered. 04/02/2021: Remains on salter nc 12l /min. Able to ambulate without any distress but does desaturate to 78%. Sats 88-90% when resting. Titrate down O2 requirements, ok with sats > 88%. Lasix 40 mg IV twice daily x 2 doses ordered. Continue supportive management 04/03/2021. Remains on salter nc but decreased from 12l /min to 8 L/min. Titrate down O2 requirements, ok with sats > 88%. Continue Lasix as needed 04/04/2021. Patient's oxygen was decreased to 10 L/min but was noted to have desaturation into the 70s. Therefore, patient was placed on 15 L with nonrebreather. Continue prone positioning as able. Patient has significantly elevated D-dimer. However, Doppler studies and CTA of chest were negative. Continue to trend D-dimer along with other inflammatory markers. Prognosis is guarded 04/05/2021. Patient sitting up in a chair and states that he feels comfortable. Patient previously on nonrebreather plus Salter nasal cannula 15 L FiO2 100% which has now been weaned to 8 L. Continue prone positioning as possible. Repeat D-dimer on 04/03 was still greater than 10,000 but CTA of chest and Doppler studies of lower extremities were negative. Recheck D-dimer in a.m. 04/06/2021. D-dimer is slightly decreased to ~8700. Patient remains on salter nasal cannula 8 L/min. Continue prone positioning as possible. Continue to trend inflammatory markers. 04/07/2021. Patient remains on salter nasal cannula 8 L/min. Continue prone positioning as possible. Continue to trend inflammatory markers. PT/OT. Exercise pulse oximetry testing at discharge. 04/08/2021. Patient remains on salter nasal cannula increased to 10 L/min. Continue prone positioning as possible. Continue to trend inflammatory markers. Continue IV Solu-Medrol per pulmonary recommendations. BG is stable. 04/09/2021. Patient remains on salter nasal cannula increased to 10 L/min. Continue prone positioning as possible. Continue to trend inflammatory markers. Continue IV Solu-Medrol per pulmonary recommendations. BG is stable. 04/10/2021 Patient with Covid-19 with acute resp failure . Still on Oxygen at 10 l/min. Continue current. Repeat labs in am. 04/11/2021 Patient with Covid-19 pneumonia with acute resp failure. Now on Oxygen at 6 l/min down from 10 l/min yesterday.. Pulm following. Likely dc home in few days. To obtain ambulatory pulse ox to determine need for Oxygen prior to discharge. 04/12/2021 Acute hypoxic respiratory failure due to Covid-19 pneumonia. On 11 L oxygen by nasal cannula. Has thrombocytopenia, no bleeding noted and will monitor. Nonsustained V. tach, on beta-anuja. Cardiology will be informed. Will check CBC, BMP and magnesium in the morning. 04/13/2021. Acute hypoxic respiratory failure. Was on 7 L oxygen by nasal cannula earlier this morning but has been increased to 11 L oxygen due to worsening hypoxia. Thrombocytopenia is unchanged, no bleeding reported. Hypermagnesemia has resolved. Had a low-grade fever with temperature of 100 and will continue monitoring, will do further work-up if it reoccurs. No indication for antibiotic at this time. 04/14/2021 Patient with Covid-19 pneumonia with acute resp failure. Now on oxygen at 15 l/min, non rebreather. 04/15/21 Patient with Covid-19 pneumonia with acute resp failure. This morning became worse with respiratory distress, so put on BIPAP. he was hypoxic, ABG shows hypoxemia. I discussed with Alexis Aj and he recommended transfer to ICU and Intubation by Anesthesiology. I discussed this with patient and at bedside. CXR shows worse pneumonia. 04/16/21 Patient with Covid-19 pneumonia with acute respiratory failure. Transferred to ICU and intubated yesterday, placed on ventilator because of worsening respiratory failure with hypoxia. He is hypotensive on pressors. Patient is critically ill. Prognosis guarded. He is a full code 04/17/21- Patient more hypotensive and tachycardic today, still on dobutamine gtt, on Max levo and Vaso, MAP in the 50s, demarco was added to maintain MAP>65. Patient was hypoxic from this am ABG, with low SPO2, D/W CCM FiO2 increased to 90%. Orders placed for lactic acid, mixed venous, CRP, and Procal. At approximately 2:30 PM, patient was noted to have decompensated rapidly and became hypoxemic requiring 5 pressors. Patient was noted to have O2 saturation in the 50s on 100% FiO2 and a PEEP of 12. Patient had no acute tension pneumothorax or other pathology on chest x-ray. Patient was too unstable to go for CTA of chest. Stat 2D echo compared to 1 from 48 hours earlier revealed new right ventricular heart strain. Online [employer]st suspected acute massive PE. Patient was given TPA over 2 hours and IV heparin drip. The risk benefits were discussed with the including nonlife sustainable hemodynamic decompensation. The patient further decompensated at 2029 with CODE BLUE called. Dr. Xavier presented to the bedside the patient was found to be in asystolic arrest. Patient treated" with ACLS protocol with eventual return of perfusing cardiac rhythm. Patient had a second CODE BLUE called at approximately 12:30 AM on 04/18. Resuscitative measures were commenced according to ACLS protocol for asystole. Patient had multiple rounds of epinephrine and sodium bicarb. Blood glucose was 105. Patient subsequently had spontaneous return of circulation. Patient had a third CODE BLUE that began at approximately 5 AM. Patient had multiple doses of epinephrine, sodium bicarb and calcium chloride without any response. Patient was subsequently pronounced at 5:53 AM April 18, 2021. Cardiopulmonary arrest, acute hypoxic respiratory failure, acute massive PE, COVID-19 pneumonia Dedicated summary time 42 minutes
== END 2021-04-18 05:53 | DRG 871 ==
LOC: ED 07:05 → 3A 12:48 → CC1 04-15 13:36
PROVIDERS: ADMIT Internal Medicine; ATTEND Hospitalist
PROC: XW033E5 Introduction of Remdesivir Anti-infective into Peripheral Vein, Percutaneous Approach, New Technology Group 5 (ICD-10-PCS; 2021-03-29)
PROC: 5A09357 Assistance with Respiratory Ventilation, Less than 24 Consecutive Hours, Continuous Positive Airway Pressure (ICD-10-PCS; 2021-04-01)
PROC: 4A033R1 Measurement of Arterial Saturation, Peripheral, Percutaneous Approach (ICD-10-PCS; 2021-04-06)
PROC: 5A09357 Assistance with Respiratory Ventilation, Less than 24 Consecutive Hours, Continuous Positive Airway Pressure (ICD-10-PCS; 2021-04-06)
PROC: 5A09357 Assistance with Respiratory Ventilation, Less than 24 Consecutive Hours, Continuous Positive Airway Pressure (ICD-10-PCS; 2021-04-09)
PROC: 5A09357 Assistance with Respiratory Ventilation, Less than 24 Consecutive Hours, Continuous Positive Airway Pressure (ICD-10-PCS; 2021-04-09)
PROC: 5A09357 Assistance with Respiratory Ventilation, Less than 24 Consecutive Hours, Continuous Positive Airway Pressure (ICD-10-PCS; 2021-04-12)
PROC: 5A1945Z Respiratory Ventilation, 24-96 Consecutive Hours (ICD-10-PCS; principal; 2021-04-15)
PROC: 0BH17EZ Insertion of Endotracheal Airway into Trachea, Via Natural or Artificial Opening (ICD-10-PCS; 2021-04-15)
PROC: 5A09357 Assistance with Respiratory Ventilation, Less than 24 Consecutive Hours, Continuous Positive Airway Pressure (ICD-10-PCS; 2021-04-15)
PROC: 02H633Z Insertion of Infusion Device into Right Atrium, Percutaneous Approach (ICD-10-PCS; 2021-04-15)
PROC: 03HY32Z Insertion of Monitoring Device into Upper Artery, Percutaneous Approach (ICD-10-PCS; 2021-04-16)
PROC: 5A12012 Performance of Cardiac Output, Single, Manual (ICD-10-PCS; 2021-04-18)
DX: A41.89 Other specified sepsis (principal); U07.1 COVID-19; J96.01 Acute respiratory failure with hypoxia; J12.82 Pneumonia due to coronavirus disease 2019; I50.22 Chronic systolic (congestive) heart failure; I47.2 Ventricular tachycardia; Z88.8 Allergy status to other drugs, medicaments and biological substances; I11.0 Hypertensive heart disease with heart failure; G62.9 Polyneuropathy, unspecified; M06.9 Rheumatoid arthritis, unspecified; D69.6 Thrombocytopenia, unspecified; I25.5 Ischemic cardiomyopathy; I25.10 Atherosclerotic heart disease of native coronary artery without angina pectoris; E78.5 Hyperlipidemia, unspecified; I25.2 Old myocardial infarction; E83.41 Hypermagnesemia; I46.9 Cardiac arrest, cause unspecified
CPT/HCPCS: 36415; 36600; 71045; 71046; 71275; 80048; 80053; 81001; 82140; 82570; 82728; 82803; 82805; 82947; 82962; 83615; 83735; 84100; 84132; 84145; 84300; 84478; 84484; 85007; 85025; 85027; 85379; 85520; 85610; 85730; 86140; 86850; 86900; 86901; 87040; 87070; 87086; 87205; 87806; 93005; 93306; 93308; 93321; 93325; 93970; 94003; 94640; 94660; 94760; 99283; G0378; C9113; J0171; J0456; J0461; J0692; J0696; J1100; J1250; J1265; J1644; J1650; J1720; J1815; J1940; J2250; J2370; J2704; J2930; J2997; J3010; J3370; J7030; J7050; J7070; P9047; Q9967; U0003